=== PATIENT | female | born 1950 | race Caucasian/White ===

== ENCOUNTER 2019-03-04 10:26 | Inpatient (IN) | payer OTHER, MEDICARE ==
--- OUTSIDE RECORDS SUMMARY | 2019-03-04 10:42 | XMS REPORT ---
:1950 Author Organization eClinicalWorks Care Team Providers Name Role Phone Carin Washburn Provider Role Unavailable Allergies, Adverse Reactions, Alerts Substance Reaction Event Type [place] Info Not Available Drug Allergy Imitrex Info Not Available Drug Allergy Problems Problem Type Condition Code Onset Dates Condition Status Problem Imbalance R26.89 Active Problem Anemia, unspecified type D64.9 Active Problem Electrolyte imbalance E87.8 Active Problem Asthma J45.909 Active Problem Pancytopenia D61.818 Active Problem GERD without esophagitis K21.9 Active Problem Alcoholism F10.20 Active Problem Abnormal laboratory test result R89.9 Active Problem Recurrent UTI N39.0 Active Problem Loss of appetite R63.0 Active Problem Fatigue, unspecified type R53.83 Active Problem History of migraine Z86.69 Active Problem Alcoholic cirrhosis of liver K70.30 Active without ascites Problem Hepatomegaly R16.0 Active Problem Weight loss R63.4 Active Problem Renal mass N28.89 Active Problem Elevated liver enzymes R74.8 Active Problem Dizziness R42 Active Problem Abnormal erythrocyte indices R71.8 Active Assessment Recurrent UTI N39.0 Active Problem Fatty liver K76.0 Active Problem Leukopenia, unspecified type D72.819 Active Problem Vitamin D deficiency E55.9 Active Problem Elevated BP without diagnosis of R03.0 Active hypertension Medications Medication Code Code Instructions Start End Status Dosage System Date Date Vitamin D3 [facility] 43169099730 2000 UNIT Active 2 tablets Orally Once a day Dicyclomine HCl ND 03907740994 20 MG Orally Active 1 tablet Four times a day as needed Methenamine ND 09689233570 1 GM Orally Active 1 tablet Hippurate Twice a day Estrace ND 81735483005 0.1 MG/GM Sep 03, Active as Vaginal twice 2018 directed weekly Nitrofurantoin ND 45034478888 100 MG Orally Active 1 capsule Macrocrystal Twice a day x 7 with food days or milk Sucralfate ND 02003478746 1 GM Orally Active 1 tablet Twice a day at bedtime on an empty stomach before meals Travatan Z [facility] 41140249962 0.004 % Active 1 drop Ophthalmic Once into a day affected eye in the evening Cipro [facility] 09705081740 500 MG Orally Mar 11Mar Active 1 tablet every 12 hrs 2017 Pantoprazole [facility] 53421494693 20 MG Orally Active 1 tablet Sodium Once a day MagOx 400 [facility] 51954590153 400 (241.3 Mg) Active 1 tablet MG Orally Once with food a day Bactrim DS [facility] 20218187329 800-160 MG Active 1 tablet Orally Twice a day for 5 days Omeprazole [facility] 38936864061 40 MG Orally Active 1 capsule Once a day Results Name Result Date Reference Range Unit Abnormality Flag URINALYSIS AUTO W/O SCOPE (97079) ----NIT neg [id number] ----URO 0.2 [id number] ----PROTEIN neg [id number] ----pH 6.0 [id number] ----BLO tr [id number] ----GLUCOSE neg [id number] ----KHAI tr [id number] ----BILIRUBIN neg [id number] ----KETONES neg [id number] ----SPECIFIC GRAVITY 1.010 [id number] Summary Purpose eClinicalWorks Submission
--- OUTSIDE RECORDS SUMMARY | 2019-03-04 10:42 | XMS REPORT ---
:1950 Author Organization eClinicalWorks Care Team Providers Name Role Phone Carin Washburn Provider Role Unavailable Allergies, Adverse Reactions, Alerts Substance Reaction Event Type [place] Info Not Available Drug Allergy Imitrex Info [...] Status Dosage System Date Date Vitamin D3 [facility] 28245837222 2000 UNIT Active 2 tablets Orally Once a day Dicyclomine HCl ND 15335931286 20 MG Orally Active 1 tablet Four times a day as needed Sucralfate ND 32215649154 1 GM Orally Active 1 tablet Twice a day at bedtime on an empty stomach before meals Methenamine ND 10241644874 1 GM Orally Active 1 tablet Hippurate Twice a day Metronidazole ND 53284467877 500 MG Orally Active 1 tablet Three times a day Nitrofurantoin ND 69055165106 100 MG Orally Active 1 capsule Macrocrystal Twice a day x 7 with food days or milk MagOx 400 [facility] 62879200365 400 (241.3 Mg) Active 1 tablet MG Orally Once with food a day Pantoprazole [facility] 78706116700 40 MG Orally Active 1 tablet Sodium Once a day Travatan Z [facility] 37584286271 0.004 % Active 1 drop Ophthalmic Once into a day affected eye in the evening Omeprazole [facility] 56494796353 40 MG Orally Active 1 capsule Once a day Levofloxacin [facility] 90040179702 500 MG Orally Active 1 tablet Once a day Estrace [facility] 15727667270 0.1 MG/GM Sep 03, Active as Vaginal twice 2018 directed weekly Bactrim DS [facility] 35894528412 800-160 MG Active 1 tablet Orally Twice a day for 5 days Results Name Result Date Reference Range Unit Abnormality Flag URINALYSIS AUTO W/O SCOPE (98089) ----NIT neg [id number] ----URO 0.2 20180721 ----PROTEIN neg [id number] ----pH 7.0 20180721 ----BLO neg [id number] ----GLUCOSE neg [id number] ----KHAI tr [id number] ----BILIRUBIN neg [id number] ----KETONES neg [id number] ----SPECIFIC GRAVITY 1.010 [id number] Summary Purpose eClinicalWorks Submission
--- OUTSIDE RECORDS SUMMARY | 2019-03-04 10:43 | XMS REPORT ---
:1950 Author Organization eClinicalWorks Care Team Providers Name Role Phone Danyel Lacy Provider Role Unavailable Allergies No Known Allergies Problems Problem Type Condition Code Onset Dates Condition Status Problem Abnormal erythrocyte indices R71.8 Active Problem Leukopenia, unspecified type D72.819 Active Problem Elevated BP without diagnosis of R03.0 Active hypertension Problem Imbalance R26.89 Active Problem Electrolyte imbalance E87.8 Active Problem Weight loss R63.4 Active Problem Alcoholic cirrhosis of liver K70.30 Active without ascites Problem Abnormal laboratory test result R89.9 Active Problem History of migraine Z86.69 Active Problem Asthma J45.909 Active Problem GERD without esophagitis K21.9 Active Problem Abnormal thyroid ultrasound R93.89 Active Problem Subcutaneous mass of neck R22.1 Active Problem Renal mass N28.89 Active Problem Pancytopenia D61.818 Active Problem Abnormal thyroid function test R94.6 Active Problem Alcoholism F10.20 Active Problem Right wrist pain M25.531 Active Problem Recurrent UTI N39.0 Active Problem Depression screening Z13.31 Active Problem Dysphagia, unspecified type R13.10 Active Problem Vitamin D deficiency E55.9 Active Problem Dizziness R42 Active Problem Elevated liver enzymes R74.8 Active Problem Fatty liver K76.0 Active Problem Loss of appetite R63.0 Active Problem Hepatomegaly R16.0 Active Problem Anemia, unspecified type D64.9 Active Problem Fatigue, unspecified type R53.83 Active Medications No Known Medications Results No Known Results Summary Purpose eClinicalWorks Submission
--- OUTSIDE RECORDS SUMMARY | 2019-03-04 10:43 | XMS REPORT ---
:1950 Author Organization eClinicalWorks Care Team Providers Name Role Phone Carin Washburn Provider Role Unavailable Allergies, Adverse Reactions, Alerts Substance Reaction Event Type [place] Info Not Available Drug Allergy Imitrex Info Not Available Drug Allergy Problems Problem Type Condition Code Onset Dates Condition Status Assessment Recurrent UTI N39.0 Active Problem Anemia, unspecified type D64.9 Active Problem Elevated BP without diagnosis of R03.0 Active hypertension Problem Imbalance R26.89 Active Problem Abnormal laboratory test result R89.9 Active Problem Electrolyte imbalance E87.8 Active Problem Fatigue, unspecified type R53.83 Active Problem Alcoholic cirrhosis of liver K70.30 Active without ascites Problem Right wrist pain M25.531 Active Problem Recurrent UTI N39.0 Active Problem Renal mass N28.89 Active Problem Pancytopenia D61.818 Active Problem Dysphagia, unspecified type R13.10 Active Problem Alcoholism F10.20 Active Problem GERD without esophagitis K21.9 Active Problem Loss of appetite R63.0 Active Problem Asthma J45.909 Active Problem History of migraine Z86.69 Active Problem Weight loss R63.4 Active Problem Fatty liver K76.0 Active Problem Elevated liver enzymes R74.8 Active Problem Hepatomegaly R16.0 Active Problem Abnormal erythrocyte indices R71.8 Active Problem Leukopenia, unspecified type D72.819 Active Problem Vitamin D deficiency E55.9 Active Problem Dizziness R42 Active Medications Medication Code Code Instructions Start End Status Dosage System Date Date Estrace ND 42300090116 0.1 MG/GM Sep 03, Active as Vaginal twice 2018 directed weekly Methenamine ND 47890599825 1 GM Orally Active 1 tablet Hippurate Twice a day Metronidazole ND 50080979649 500 MG Orally Active 1 tablet Three times a day Dicyclomine HCl ND 21453449736 20 MG Orally Active 1 tablet Four times a day as needed Nitrofurantoin ND 63648864178 100 MG Orally Active 1 capsule Macrocrystal Twice a day x 7 with food days or milk Travatan Z [facility] 39612188004 0.004 % Active 1 drop Ophthalmic Once into a day affected eye in the evening Pantoprazole [facility] 04641490007 40 MG Orally Active 1 tablet Sodium Once a day Vitamin D3 [facility] 46803222747 2000 UNIT Active 2 tablets Orally Once a day Levofloxacin [facility] 44346902151 500 MG Orally Active 1 tablet Once a day MagOx 400 [facility] 13412621953 400 (241.3 Mg) Active 1 tablet MG Orally Once with food a day Omeprazole [facility] 51944154639 40 MG Orally Active 1 capsule Once a day Bactrim DS [facility] 60259642543 800-160 MG Active 1 tablet Orally Twice a day for 5 days Methenamine [facility] 12162430855 1 GM Orally Active 1 tablet Hippurate Twice a day Sucralfate [facility] 87768173098 1 GM Orally Active 1 tablet Twice a day at bedtime on an empty stomach before meals Results No Known Results Summary Purpose eClinicalWorks Submission
--- OUTSIDE RECORDS SUMMARY | 2019-03-04 10:43 | XMS REPORT ---
:1950 Author Organization eClinicalWorks Care Team Providers Name Role Phone Lacy Montaño Provider Role Unavailable Allergies, Adverse Reactions, Alerts Substance Reaction Event Type [place] Info Not Available Drug Allergy Imitrex Info Not Available Drug Allergy Problems Problem Type Condition Code Onset Dates Condition Status Assessment Dysphagia, unspecified type R13.10 Active Assessment Loss of appetite R63.0 Active Assessment Elevated BP without diagnosis of R03.0 Active hypertension Assessment Weight loss R63.4 Active Assessment Depression screening Z13.31 Active Assessment Subcutaneous mass of neck R22.1 Active Problem Anemia, unspecified type D64.9 Active Problem Abnormal laboratory test result R89.9 Active Problem Alcoholism F10.20 Active Problem Electrolyte imbalance E87.8 Active Problem Alcoholic cirrhosis of liver K70.30 Active without ascites Problem Pancytopenia D61.818 Active Problem Fatigue, unspecified type R53.83 Active Problem GERD without esophagitis K21.9 Active Problem Loss of appetite R63.0 Active Problem Subcutaneous mass of neck R22.1 Active Problem Right wrist pain M25.531 Active Problem Hepatomegaly R16.0 Active Problem Elevated liver enzymes R74.8 Active Problem Depression screening Z13.31 Active Problem Renal mass N28.89 Active Problem Asthma J45.909 Active Problem History of migraine Z86.69 Active Problem Dysphagia, unspecified type R13.10 Active Problem Recurrent UTI N39.0 Active Assessment Alcoholism F10.20 Active Problem Vitamin D deficiency E55.9 Active Assessment GERD without esophagitis K21.9 Active Problem Dizziness R42 Active Problem Weight loss R63.4 Active Assessment Right wrist pain M25.531 Active Problem Fatty liver K76.0 Active Problem Elevated BP without diagnosis of R03.0 Active hypertension Problem Imbalance R26.89 Active Problem Abnormal erythrocyte indices R71.8 Active Problem Leukopenia, unspecified type D72.819 Active Medications Medication Code Code Instructions Start End Status Dosage System Date Date Dicyclomine HCl [facility] 28375023071 20 MG Orally Active 1 tablet Four times a day as needed Levofloxacin ND 77958744638 500 MG Orally Active 1 tablet Once a day Nitrofurantoin [facility] 35101067529 100 MG Orally Active 1 capsule Macrocrystal Twice a day x 7 with food days or milk Sucralfate [facility] 07040674763 1 GM Orally Active 1 tablet Twice a day at bedtime on an empty stomach before meals Estrace ND 15320043199 0.1 MG/GM Sep 03, Active as Vaginal twice 2018 directed weekly Metronidazole ND 04789942852 500 MG Orally Active 1 tablet Three times a day MagOx 400 [facility] 59191749398 400 (241.3 Mg) Active 1 tablet MG Orally Once with food a day Bactrim DS [facility] 61214136274 800-160 MG Active 1 tablet Orally Twice a day for 5 days Pantoprazole [facility] 82602211689 40 MG Orally Active 1 tablet Sodium Once a day Omeprazole [facility] 76724249166 40 MG Orally Active 1 capsule Once a day Methenamine [facility] 57665503429 1 GM Orally Active 1 tablet Hippurate Twice a day Travatan Z [facility] 55843365626 0.004 % Active 1 drop Ophthalmic Once into a day affected eye in the evening Vitamin D3 [facility] 56148313097 2000 UNIT Active 2 tablets Orally Once a day Results No Known Results Summary Purpose eClinicalWorks Submission
--- OUTSIDE RECORDS SUMMARY | 2019-03-04 10:43 | XMS REPORT ---
:1950 Author Organization eClinicalWorks Care Team Providers Name Role Phone Lacy Montaño Provider Role Unavailable Allergies No Known Allergies Problems Problem Type Condition Code Onset Dates Condition Status Assessment Abnormal thyroid ultrasound R94.6 Active Problem Abnormal erythrocyte indices R71.8 Active [...] Medications Results No Known Results Summary Purpose [employer] Submission
--- OUTSIDE RECORDS SUMMARY | 2019-03-04 10:43 | XMS REPORT ---
:1950 Author Organization eClinicalWorks Care Team Providers Name Role Phone Lacy Montaño Provider Role Unavailable Allergies No Known Allergies Problems Problem Type Condition Code Onset Dates Condition Status Assessment Subcutaneous mass of neck R22.1 Active [...] R13.10 Active Problem Recurrent UTI N39.0 Active Problem Vitamin D deficiency E55.9 Active Problem Dizziness R42 Active Problem Weight loss R63.4 Active Problem Fatty liver K76.0 Active Problem Elevated BP without diagnosis of R03.0 Active hypertension Problem Imbalance R26.89 Active Problem Abnormal erythrocyte indices R71.8 Active Problem Leukopenia, unspecified type D72.819 Active Medications No Known Medications Results No Known Results Summary Purpose eClinicalWorks Submission
--- OUTSIDE RECORDS SUMMARY | 2019-03-04 10:43 | XMS REPORT ---
:1950 Author Organization eClinicalWorks Care Team Providers Name Role Phone Jose Raul Montañoen Provider Role Unavailable Allergies, Adverse Reactions, Alerts Substance Reaction Event Type [place] Info Not Available Drug Allergy Imitrex Info Not Available Drug Allergy Problems Problem Type Condition Code Onset Dates Condition Status Assessment Alcoholism F10.20 Active Assessment Loss of appetite R63.0 Active Assessment Elevated BP without diagnosis of R03.0 Active hypertension Problem Leukopenia, unspecified type D72.819 Active Assessment GERD without esophagitis K21.9 Active Problem Elevated BP without diagnosis of R03.0 Active hypertension Problem Imbalance R26.89 Active Problem Anemia, unspecified type D64.9 Active Problem Electrolyte imbalance E87.8 Active Problem Asthma J45.909 Active Problem GERD without esophagitis K21.9 Active Problem Pancytopenia D61.818 Active Problem Alcoholism F10.20 Active Problem Recurrent UTI N39.0 Active Problem Abnormal laboratory test result R89.9 Active Problem Loss of appetite R63.0 Active Problem Fatigue, unspecified type R53.83 Active Problem History of migraine Z86.69 Active Problem Alcoholic cirrhosis of liver K70.30 Active without ascites Problem Hepatomegaly R16.0 Active Problem Weight loss R63.4 Active Problem Renal mass N28.89 Active Problem Elevated liver enzymes R74.8 Active Problem Dizziness R42 Active Problem Abnormal erythrocyte indices R71.8 Active Problem Fatty liver K76.0 Active Problem Vitamin D deficiency E55.9 Active Medications Medication Code Code Instructions Start End Status Dosage System Date Date Metronidazole ND 98116133737 500 MG Orally Active 1 tablet Three times a day Levofloxacin ND 74495343122 500 MG Orally Active 1 tablet Once a day Bactrim DS [facility] 40057753248 800-160 MG Active 1 tablet Orally Twice a day for 5 days Omeprazole ND 20357006362 40 MG Orally Active 1 capsule Once a day Travatan Z [facility] 89776036897 0.004 % Active 1 drop Ophthalmic Once into a day affected eye in the evening Methenamine [facility] 37020702541 1 GM Orally Active 1 tablet Hippurate Twice a day Dicyclomine HCl [facility] 24802596759 20 MG Orally Active 1 tablet Four times a day as needed Nitrofurantoin [facility] 85678504057 100 MG Orally Active 1 capsule Macrocrystal Twice a day x 7 with food days or milk MagOx 400 [facility] 30912470039 400 (241.3 Mg) Active 1 tablet MG Orally Once with food a day Sucralfate [facility] 50827396818 1 GM Orally Active 1 tablet Twice a day at bedtime on an empty stomach before meals Pantoprazole [facility] 61741410677 40 MG Orally Active 1 tablet Sodium Once a day Estrace [facility] 74198249586 0.1 MG/GM Sep 03, Active as Vaginal twice 2018 directed weekly Vitamin D3 [facility] 41829277676 2000 UNIT Active 2 tablets Orally Once a day Results No Known Results Summary Purpose eClinicalWorks Submission
--- NOTE | 2019-03-04 11:13 | RAD REPORT ---
EXAM DESCRIPTION: RAD - Chest Single View - 03/04/2019 11:07 am CLINICAL HISTORY: weakness Chest pain. COMPARISON: Chest Single View dated 05/19/2018; Chest Single View dated 06/27/2017; Chest Single View dated 10/23/2015 FINDINGS: Portable technique limits examination quality. The lungs are grossly clear. The heart is normal in size. No displaced fractures. IMPRESSION: No acute intrathoracic process suspected.
[2019-03-04] MEDS ORDERED: NA CHLORIDE 0.9% 1,000 ML ONE ×2 (11:26→11:59)
[2019-03-04] MEDS ORDERED: ONDANSETRON 4 MG/2 ML VIAL ONE (11:26)
[2019-03-04 11:34] LABS: Absolute Lymphocytes (CBC) 0.3 K/uL (0.7-4.9); Basophils % 0.1 % (0-1.3); Hematocrit 44.5 % (36.0-45.0); Lymphocytes % 4.2 % (15.3-44.8); MPV 8.9 fL (7.6-11.3); RBC Red Blood Cell Count 4.04 M/uL (3.86-4.86)
[2019-03-04 11:51] LABS: Bilirubin Direct 1.4 mg/dL (0-0.2); Bilirubin Total 2.8 mg/dL (0.2-1.0); Potassium 4.4 mmol/L (3.5-5.1)
[2019-03-04 11:54] LABS: Magnesium 1.7 mg/dL (1.8-2.4); NT PRO-BNP 304 pg/mL (<125); Troponin (Emerg Dept Use Only) < 0.02 ng/mL (0.0-0.045)
[2019-03-04] MEDS ORDERED: THIAMINE 200 MG/2 ML INJ ONE (11:54)
[2019-03-04] MEDS ORDERED: NA CHLORIDE 0.9% 1,000 ML with FOLIC ACID 1 MG, THIAMINE HCL 100 MG, MULTIVITAMINS INJ ... IV SCH ×4 (12:00)
[2019-03-04 12:16] LABS: Urine Bacteria 20-50 /HPF (<20); Urine Culture Reflex Order REFLEXED; Urine RBC >50 /HPF (NONE SEEN)
--- NOTE | 2019-03-04 12:34 | RAD REPORT ---
EXAM DESCRIPTION: CT - Abdomen Pelvis Wo Contrast - 03/04/2019 12:20 pm CLINICAL HISTORY: Abdominal pain. no contrast;Abd pain COMPARISON: Abdomen W/Wo Contrast dated 04/22/2017 TECHNIQUE: CT imaging of the abdomen and pelvis was performed without contrast. Solid organ, bowel a nd vascular assessment is limited due to lack of IV and oral contrast. All CT scans are performed using dose optimization technique as appropriate and may include automated exposure control or mA/KV adjustment according to patient size. FINDINGS: The lower lung bundy are clear. Diffuse fatty infiltration is seen throughout the liver.The spleen, adrenal glands and kidneys show n o acute process. There is inflammatory changes about the pancreas particularly the tail the pancreas and body of the pancreas suggesting acute pancreatitis. Gallstones are present in the gallbladder. No bowel obstruction, free air, free fluid or abscess. The appendix is not identified as a discrete structure, however, no secondary findings of appendicitis are identified. The osseous structures are within normal limits. IMPRESSION: Mild to moderate acute pancreatitis is suspected without evidence complication. Suggest correlation with amylase and lipase levels. Cholelithiasis. Prominent fatty liver. A limited non-contrast examination was performed as detailed.
[2019-03-04 12:40] LABS: Urine Blood 1+ (NEG); Urine Glucose NEGATIVE (NEG); Urine Protein 2+ (NEG); Urine Specific Gravity 1.025 (1.005-1.030); Urine pH 5.5 (5.0-7.0)
--- NOTE | 2019-03-04 12:41 | ER ---
Nurse's Notes [facility] Name: Ciara Faith Age: 69 yrs Sex: Female : 1950 Arrival Date: 03/04/2019 Time: 10:31 Bed 13 Private MD: Diagnosis: Acute pancreatitis;Dehydration;Urinary tract infection, site not specified Presentation: 03/04 10:31 Presenting complaint: EMS states: Lower abdominal pain, N/V x 3 days. Reports hx of jl7 UTI. Transition of care: patient was not received from another setting of care. Onset of symptoms was February 28, 2019. Risk Assessment: Do you want to hurt yourself or someone else? Patient reports no desire to harm self or others. Initial Sepsis Screen: Does the patient meet any 2 criteria? No. Patient's initial sepsis screen is negative. Does the patient have a suspected source of infection? No. Patient's initial sepsis screen is negative. Care prior to arrival: None. 10:31 Method Of Arrival: EMS: [facility] jl7 10:31 Acuity: LINA 3 jl7 Historical: - Allergies: 10:38 [place]; jl7 - PMHx: 10:38 GERD; jl7 - Immunization history:: Adult Immunizations. - Social history:: Smoking status: unknown Patient uses alcohol, on a daily basis. - Ebola Screening: : No symptoms or risks identified at this time. Screenin:19 Abuse screen: Denies threats or abuse. Denies injuries from another. Nutritional jl7 screening: No deficits noted. Tuberculosis screening: No symptoms or risk factors identified. Fall Risk No fall in past 12 months (0 pts). No secondary diagnosis (0 pts). IV access (20 points). Ambulatory Aid- None/Bed Rest/Nurse Assist (0 pts). Gait- Weak (10 pts.). Mental Status- Oriented to own ability (0 pts). Total Gao Fall Scale indicates Low Risk Score (25-44 pts). Fall prevention measures have been instituted. Side Rails Up X 2 Placed close to Nursing Station Frequent Obs/Assesments occuring Family Present and informed to notify staff if they need to leave bedside As available Patient and Family Educated on Fall Prevention Program and strategies. Assessment: 10:30 General: Appears in no apparent distress. uncomfortable, ill, Behavior is calm, jl7 cooperative, appropriate for age. Pain: Complains of pain in suprapubic area Pain does not radiate. Pain currently is 7 out of 10 on a pain scale. Quality of pain is described as pressure, Pain began 2-3 days ago. Is continuous. Neuro: Level of Consciousness is awake, alert, obeys commands, Oriented to person, place, time, situation. Cardiovascular: Patient's skin is warm and dry. Respiratory: Airway is patent Respiratory effort is even, unlabored, Respiratory pattern is regular, symmetrical. GI: Reports nausea, vomiting, Patient currently denies constipation, diarrhea. : Reports pain in suprapubic area Denies burning with urination. EENT: No signs and/or symptoms were reported regarding the EENT system. Derm: Skin is pink, warm \T\ dry. Musculoskeletal: Reports weakness in all over. 11:30 Reassessment: Patient appears in no apparent distress at this time. No changes from jl7 previously documented assessment. Patient and/or family updated on plan of care and expected duration. Pain level reassessed. Patient is alert, oriented x 3, equal unlabored respirations, skin warm/dry/pink. 12:30 Reassessment: Patient appears in no apparent distress at this time. No changes from jl7 previously documented assessment. Patient and/or family updated on plan of care and expected duration. Pain level reassessed. Patient is alert, oriented x 3, equal unlabored respirations, skin warm/dry/pink. 13:30 Reassessment: Patient appears in no apparent distress at this time. Patient and/or 7 family updated on plan of care and expected duration. Pain level reassessed. Patient is alert, oriented x 3, equal unlabored respirations, skin warm/dry/pink. 14:30 Reassessment: Patient appears in no apparent distress at this time. No changes from jl7 previously documented assessment. Patient and/or family updated on plan of care and expected duration. Pain level reassessed. Patient is alert, oriented x 3, equal unlabored respirations, skin warm/dry/pink. Vital Signs: 10:39 BP 145 / 83; Pulse 108; Resp 19 S; Temp 98.7(O); Pulse Ox 100% on R/A; Pain 7/10; jl7 12:19 BP 146 / 85; Pulse 103; Resp 16 S; Pulse Ox 100% on R/A; jl7 ED Course: 10:30 Patient has correct armband on for positive identification. Placed in gown. Bed in low jl7 position. Call light in reach. Side rails up X 1. Pulse ox on. NIBP on. Warm blanket given. 10:31 Patient arrived in ED. jl7 10:34 Triage completed. jl7 10:36 Fouzia Shah FNP-C is [facility]. kb 10:36 Ra Sanabria MD is Attending Physician. kb 10:39 Arm band placed on right wrist. jl7 10:57 Irving Briones, ERICA is Primary Nurse. jl7 10:59 X-ray completed. Portable x-ray completed in exam room. Patient tolerated procedure sw well. 11:00 Initial lab(s) drawn, by me, sent to lab. Inserted saline lock: 22 gauge in left hand, jl7 using aseptic technique. 11:05 XRAY Chest (1 view) In Process Unspecified. EDMS 11:23 EKG done, by semiconductor development technician. reviewed by Fouzia MORALES. 3 11:34 Straight cath inserted, using sterile technique, Returned paxton urine. Patient dh3 tolerated well. 15Fr 200mL. 12:21 CT Abd/Pelvis - Without Contrast In Process Unspecified. EDMS 12:39 Ritesh Montaño MD is Hospitalizing Provider. kb 12:54 Milo Sands DO is Hospitalizing Provider. kb 13:20 Urine Culture Sent. jl7 14:30 No provider procedures requiring assistance completed. Patient admitted, IV remains in jl7 place. intact, No redness/swelling at site. Administered Medications: 11:47 Drug: NS 0.9% 1000 ml Route: IV; Rate: 1000 ml; Site: left hand; jl7 12:30 Follow up: IV Status: Completed infusion jl7 12:10 Drug: Thiamine 100 mg Route: IV; Rate: calculated rate; Site: left hand; jl7 12:11 Follow up: Response: No adverse reaction; IV Status: Completed infusion jl7 12:15 Drug: NS 0.9% 1000 ml Route: IV; Rate: 1000 ml; Site: left hand; jl7 15:17 Follow up: IV Status: Completed infusion jl7 12:34 Drug: Banana Bag - (NS 0.9% 1000 ml, foLIC Acid 1 mg, Thiamine 100 mg, Multivitamin 1 jl7 amp) Route: IV; Rate: calculated rate; Site: left hand; 15:18 Follow up: IV Status: Infusion continued upon admission jl7 13:17 Drug: Rocephin 1 grams Route: IV; Rate: calculated rate; Site: left hand; jl7 13:20 Follow up: Response: No adverse reaction; IV Status: Completed infusion jl7 Outcome: 12:40 Decision to Hospitalize by Provider. kb 15:23 Admitted to Tele accompanied by tech, via stretcher, room 205, with chart, Report jl7 called to Anjelica 15:23 Condition: stable 15:23 Discharge instructions given to patient, family, Instructed on the need for admit, Demonstrated understanding of instructions. 15:30 Patient left the ED. jl7 Signatures: Dispatcher [employer] EDFouzia Ramirez, PROFESSOR OF PATHOLOGY-C PROFESSOR OF PATHOLOGY-Ckb Teresita De La Torre Jahala, RN RN jl7 Daily Wolfe 3 Abi Bee 3 Corrections: (The following items were deleted from the chart) 12:15 11:47 NS 0.9% 1000 ml IV at 1000 ml in right hand jl7 jl7
--- NOTE | 2019-03-04 12:41 | EDPHYS ---
Physician Documentation [facility] Name: Ciara Faith Age: 69 yrs Sex: Female : 1950 Arrival Date: 03/04/2019 Time: 10:31 Bed 13 Private MD: ED Physician Ra Sanabria HPI: 03/04 13:36 This 69 yrs old Female presents to ER via EMS with complaints of Abdominal kb Pain. 13:36 The patient presents with abdominal pain. Onset: The symptoms/episode began/occurred 2 kb week(s) ago. The symptoms do not radiate. Associated signs and symptoms: Pertinent positives: nausea. The symptoms are described as constant. Modifying factors: The symptoms are alleviated by nothing, the symptoms are aggravated by nothing. Severity of pain: At its worst the pain was moderate in the emergency department the pain is unchanged. The patient has not experienced similar symptoms in the past. The patient has not recently seen a physician. Pt reports upper abd pain, nausea, decreased appetite, weakness and fatigue for 2-3 weeks. Historical: - Allergies: 10:38 [place]; jl7 - PMHx: 10:38 GERD; jl7 - Immunization history:: Adult Immunizations. - Social history:: Smoking status: unknown Patient uses alcohol, on a daily basis. - Ebola Screening: : No symptoms or risks identified at this time. ROS: 13:35 Constitutional: Negative for fever, chills, and weight loss, ENT: Negative for injury, kb pain, and discharge, Neck: Negative for injury, pain, and swelling, Cardiovascular: Negative for chest pain, palpitations, and edema, Respiratory: Negative for shortness of breath, cough, wheezing, and pleuritic chest pain, Back: Negative for injury and pain, MS/Extremity: Negative for injury and deformity, Skin: Negative for injury, rash, and discoloration. 13:35 Abdomen/GI: Positive for abdominal pain, nausea. 13:35 Neuro: Positive for weakness. Exam: 13:35 Constitutional: This is a well developed, well nourished patient who is awake, alert, kb and in no acute distress. Head/Face: Normocephalic, atraumatic. ENT: Nares patent. No nasal discharge, no septal abnormalities noted. Tympanic membranes are normal and external auditory canals are clear. Oropharynx with no redness, swelling, or masses, exudates, or evidence of obstruction, uvula midline. Mucous membranes moist. Neck: Trachea midline, no thyromegaly or masses palpated, and no cervical lymphadenopathy. Supple, full range of motion without nuchal rigidity, or vertebral point tenderness. No Meningismus. Chest/axilla: Normal chest wall appearance and motion. Nontender with no deformity. No lesions are appreciated. Cardiovascular: Regular rate and rhythm with a normal S1 and S2. No gallops, murmurs, or rubs. Normal PMI, no JVD. No pulse deficits. Respiratory: Lungs have equal breath sounds bilaterally, clear to auscultation and percussion. No rales, rhonchi or wheezes noted. No increased work of breathing, no retractions or nasal flaring. Back: No spinal tenderness. No costovertebral tenderness. Full range of motion. Skin: Warm, dry with normal turgor. Normal color with no rashes, no lesions, and no evidence of cellulitis. MS/ Extremity: Pulses equal, no cyanosis. Neurovascular intact. Full, normal range of motion. Neuro: Awake and alert, GCS 15, oriented to person, place, time, and situation. Cranial nerves II-XII grossly intact. Motor strength 5/5 in all extremities. Sensory grossly intact. Cerebellar exam normal. Normal gait. 13:35 Abdomen/GI: Inspection: abdomen appears normal, Bowel sounds: normal, Palpation: soft, in all quadrants, moderate abdominal tenderness, in the right upper quadrant and left upper quadrant. Vital Signs: 10:39 BP 145 / 83; Pulse 108; Resp 19 S; Temp 98.7(O); Pulse Ox 100% on R/A; Pain 7/10; jl7 12:19 BP 146 / 85; Pulse 103; Resp 16 S; Pulse Ox 100% on R/A; jl7 MDM: 10:37 Patient medically screened. kb 12:54 Data reviewed: vital signs, nurses notes. Data interpreted: Pulse oximetry: on room air kb is 100 %. Interpretation: normal. Counseling: I had a detailed discussion with the patient and/or guardian regarding: the historical points, exam findings, and any diagnostic results supporting the discharge/admit diagnosis, lab results, radiology results, the need for further work-up and treatment in the hospital. Physician consultation: Milo Prezas DO regarding admission, to the telemetry unit. patient's condition, in the emergency department to see patient at 12:54. 13:38 ED course: reports pt used to drink 4-6 vodka tonics per day, but when she kb started feeling bad she decreased it to one per day. 03/04 10:37 Order name: Urine Microscopic Only; Complete Time: 12:24 kb 03/04 10:37 Order name: Basic Metabolic Panel; Complete Time: 11:54 kb 03/04 10:37 Order name: CBC with Diff; Complete Time: 13:49 kb 03/04 10:37 Order name: Hepatic Function; Complete Time: 11:56 kb 03/04 10:37 Order name: Lipase; Complete Time: 11:56 kb 03/04 10:44 Order name: Magnesium; Complete Time: 11:56 kb 03/04 10:44 Order name: NT PRO-BNP; Complete Time: 11:56 kb 03/04 10:44 Order name: Troponin (emerg Dept Use Only); Complete Time: 11:56 kb 03/04 10:44 Order name: XRAY Chest (1 view); Complete Time: 11:16 kb 03/04 11:43 Order name: Urine Dipstick--Ancillary (enter results); Complete Time: 12:42 ar5 03/04 11:58 Order name: CT Abd/Pelvis - Without Contrast; Complete Time: 12:37 kb 03/04 12:20 Order name: Urine Culture EDMS 03/04 13:45 Order name: CBC Smear Scan; Complete Time: 13:49 EDMS 03/04 10:37 Order name: Urine Dipstick-Ancillary (obtain specimen); Complete Time: 11:39 kb 03/04 10:37 Order name: IV Saline Lock; Complete Time: 11:39 kb 03/04 10:37 Order name: Labs collected and sent; Complete Time: 11:39 kb 03/04 10:44 Order name: EKG; Complete Time: 10:46 kb 03/04 10:44 Order name: EKG - Nurse/Tech; Complete Time: 11:48 kb Administered Medications: 11:47 Drug: NS 0.9% 1000 ml Route: IV; Rate: 1000 ml; Site: left hand; 7 12:30 Follow up: IV Status: Completed infusion jl7 12:10 Drug: Thiamine 100 mg Route: IV; Rate: calculated rate; Site: left hand; jl7 12:11 Follow up: Response: No adverse reaction; IV Status: Completed infusion jl7 12:15 Drug: NS 0.9% 1000 ml Route: IV; Rate: 1000 ml; Site: left hand; jl7 15:17 Follow up: IV Status: Completed infusion jl7 12:34 Drug: Banana Bag - (NS 0.9% 1000 ml, foLIC Acid 1 mg, Thiamine 100 mg, Multivitamin 1 jl7 amp) Route: IV; Rate: calculated rate; Site: left hand; 15:18 Follow up: IV Status: Infusion continued upon admission jl7 13:17 Drug: Rocephin 1 grams Route: IV; Rate: calculated rate; Site: left hand; jl7 13:20 Follow up: Response: No adverse reaction; IV Status: Completed infusion jl7 Disposition: 15:34 Co-signature as Attending Physician, Ra Sanabria MD I agree with the assessment and cabrera plan of care. Disposition: 03/04/19 12:40 Hospitalization ordered by Milo Sands for Inpatient Admission. Preliminary diagnosis are Acute pancreatitis, Dehydration, Urinary tract infection, site not specified. - Bed requested for Telemetry/MedSurg (Inpatient). - Status is Inpatient Admission. jl7 - Condition is Stable. - Problem is new. - Symptoms are unchanged. UTI on Admission? Yes Signatures: Dispatcher [employer] EDFouzia Ramirez, DEHYDRATOR TENDER-C DEHYDRATOR TENDER-Ra Koo MD MD cha Martinez, [place] [id number] Irving Briones, RN RN jl7 Corrections: (The following items were deleted from the chart) 12:54 12:40 Hospitalization Ordered by Ritesh Montaño MD for Inpatient Admission. Preliminary kb diagnosis is Acute pancreatitis; Dehydration. Bed requested for Telemetry/MedSurg (Inpatient). Status is Inpatient Admission. Condition is Stable. Problem is new. Symptoms are unchanged. UTI on Admission? Yes. kb 14:33 12:54 03/04/2019 12:40 Hospitalization Ordered by Milo Sands DO for Inpatient em1 Admission. Preliminary diagnosis is Acute pancreatitis; Dehydration; Urinary tract infection, site not specified. Bed requested for Telemetry/MedSurg (Inpatient). Status is Inpatient Admission. Condition is Stable. Problem is new. Symptoms are unchanged. UTI on Admission? Yes. kb 15:30 14:33 03/04/2019 12:40 Hospitalization Ordered by Milo Sands DO for Inpatient jl7 Admission. Preliminary diagnosis is Acute pancreatitis; Dehydration; Urinary tract infection, site not specified. Bed requested for Telemetry/MedSurg (Inpatient). Status is Inpatient Admission. Condition is Stable. Problem is new. Symptoms are unchanged. UTI on Admission? Yes. em1
[2019-03-04] MEDS ORDERED: CEFTRIAXONE/SWI 1gm 1 GM/10 ML SYR ONE (13:14)
--- NOTE | 2019-03-04 13:32 | P.HP ---
Certification for Inpatient Patient admitted to: Inpatient With expected LOS: >2 Midnights Patient will require the following post-hospital care: None Practitioner: I am a practitioner with admitting privileges, knowledge of patient current condition, hospital course, and medical plan of care. Services: Services provided to patient in accordance with Admission requirements found in Title 42 Section 412.3 of the Code of Federal Regulations Patient History Date of Service: 03/04/19 Primary Care Provider: Dr. Montaño Reason for admission: Nausea, fatigue, abdominal pain History of Present Illness: 69-year-old female presented to the emergency room with nausea, fatigue and epigastric abdominal pain. Patient has history of GERD, pancreatitis, alcohol abuse and frequent UTI. Over the last several days patient has been feeling fatigued. She has reported increased nausea and epigastric abdominal pain. She rated the pain about a 7/ 10. Mainly to the epigastric region. She denies any fever, chills. She does report some mild shortness of breath, chest pain. Patient denies any diarrhea, constipation, melena or hematochezia. Decreased urine output noted. Increased nausea and vomiting today. Patient reports history of pancreatitis last year. She does use alcohol daily. She has been trying to cut down. at bedside. In the ER patient appeared dehydrated. Overall stable. Vital signs stable. Hemoglobin 14.9, white count 6.8. Platelet count of 90. Sodium 128, potassium 4.4, chloride 89, bicarb 8. BUN of 21 creatinine 1.65 with a GFR of 31. Glucose 135. Lipase elevated at 11,452. Troponin negative. Magnesium low at 1.7. Total bilirubin 2.1, AST 90, ALT 37. Chest x-ray unremarkable. Urinalysis showed some bacteria. CT scan revealed [id number] pancreatitis. Gallstones noted. Patient was given IV fluids in the emergency room. Patient admitted for further evaluation and treatment. When I saw the patient ER, she appeared stable. Patient does not appear septic. at bedside. reports patient recently evaluated for submandibular nodule. She is in the process of seeing a ENT. Recent ultrasound and CT scan unremarkable. also reports that last week she had a mild UTI. She took some left over Cipro for 2 days. Allergies hydrocodone [From [facility]] Allergy (Severe, Verified 05/19/18 16:44) Hives/Rash Home medications list reviewed: Yes Home Medications: Methenamine Hippurate 1 tab PO BID 05/19/18 Pantoprazole [Protonix Tab*] 40 mg PO DAILY 05/19/18 Travoprost [Travatan Z*] 1 gtt OP BEDTIME 05/19/18 Diphenox/Atropine [Lomotil*] 1 tab PO QID PRN #30 tab 05/29/18 Pantoprazole [Protonix Tab*] 40 mg PO ACB #30 tab 05/29/18 levoFLOXacin [Levaquin*] 500 mg PO DAILY #10 tab 05/29/18 metroNIDAZOLE [Flagyl*] 500 mg PO TID #30 tablet 05/29/18 - Past Medical/Surgical History Diabetic: No -: Fatty liver -: Alcohol abuse -: Former tobacco use -: GERD -: History of Recurrent UTI -: 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 She has 3 children. 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 She works as a tax filer. - Family History Mother -: Cancer - Social History Smoking Status: Former smoker Alcohol use: Yes CD- Drugs: No Caffeine use: No Place of Residence: Home Review of Systems General: Weakness, Malaise, As per HPI Eyes: Unremarkable ENT: Unremarkable Respiratory: Shortness of Breath, As per HPI Cardiovascular: Chest Pain, As per HPI Gastrointestinal: Nausea, Vomiting, Abdominal Pain, As per HPI Genitourinary: Dysuria, Frequency, As per HPI Musculoskeletal: Unremarkable Integumentary: Unremarkable Neurological: Weakness, As per HPI Lymphatics: Unremarkable Physical Examination - Physical Exam General: Alert, In no apparent distress, Oriented x3, Cooperative HEENT: Atraumatic, Normocephalic, PERRLA, Other (Dry Mucous membranes) Neck: Supple, No Thyromegaly, Other (Mild adenopathy to the right submandibular area) Respiratory: Clear to auscultation bilaterally, Normal air movement Cardiovascular: Normal pulses, Regular rate/rhythm Gastrointestinal: Normal bowel sounds, Soft and benign, Non-distended, No masses , No rebound, No guarding, Tenderness (Pain to the epigastric region with deep palpation) Musculoskeletal: No erythema, No tenderness, No warmth Integumentary: No tenderness/swelling, No erythema, No warmth, No cyanosis, Other (Dry skin) Neurological: Normal speech, Normal strength at 5/5 x4 extr, Normal tone, Normal affect - Studies Laboratory Data (last 24 hrs) 03/04/19 11:22: Magnesium 1.7 L 03/04/19 11:22: WBC 6.8, Hgb 14.8, Hct 44.5, Plt Count 90 L 03/04/19 11:22: Sodium 128 L, Potassium 4.4, BUN 20 H, Creatinine 1.65 H, Glucose 135 H, Total Bilirubin 2.8 H, AST 90 H, ALT 37, Alkaline Phosphatase 68 , Lipase 28915 H Assessment and Plan - Plan Impression: Nausea, fatigue, epigastric abdominal pain secondary to mild to moderate pancreatitis likely alcohol related with noted cholelithiasis Acute renal injury with hypo magnesium secondary to dehydration Hyponatremia likely related to volume depletion UTI with history of recurrent UTI Chronic Thrombocytopenia etiology unknown likely related to alcohol abuse Elevated liver function likely from alcohol abuse Alcohol abuse GERD Moderate malnutrition likely from alcohol Plan: Nausea, fatigue, epigastric abdominal pain secondary to mild to moderate pancreatitis likely alcohol related with noted cholelithiasis: Patient will be admitted for further evaluation and treatment. Will keep the patient NPO. Will continue with IV fluids and banana bag. Will continue monitor electrolytes and replace appropriately. Will consult GI for further evaluation and treatment. Will obtain abdominal ultrasound to evaluate liver and common bile duct. Check triglyceride level. Other lab includes pro calcitonin, blood cultures, urine culture and hepatitis panel. Will provide DVT prophylaxis-SCD. Care discussed with patient and . Anticipate discharge in the next 3- 5 days with clinical improvement. Will discuss further with GI. Acute renal injury with hypomagnesia secondary to dehydration: Continue with IV fluids. Will monitor and adjust electrolytes appropriately. Will consider nephrology evaluation if renal function remains abnormal. Hyponatremia likely related to volume depletion: Continue with IV fluids. UTI with history of recurrent UTI: Will start Rocephin. Urine and blood cultures obtained. Will check pro calcitonin. Chronic Thrombocytopenia etiology unknown likely related to alcohol abuse: Will check LDH, INR PT PTT, and peripheral smear. May be related to underlying liver disease/alcohol abuse. Previous lab shows thrombocytopenia in the past. Elevated liver function likely from alcohol abuse: Secondary to above. Will monitor closely. Continue with GI evaluation. Alcohol abuse: Encourage alcohol cessation. Patient willing to quit. Will provide medication for agitation. Will need to monitor for withdrawal. GERD: Will provide PPI. Moderate malnutrition likely from alcohol: Continue with plan above. Once able to take good oral intake will consult dietary to evaluate and make recommendations. Discharge Plan: Home Plan to discharge in: Greater than 2 days - Advance Directives Does patient have a Living Will: No Does patient have a Durable POA for Healthcare: No - Code Status/Comfort Care Code Status Assessed: Yes (Patient is full code) Time Spent Managing Pts Care (In Minutes): 55
[2019-03-04 13:44] LABS: Blood Morphology Comment NOTED (NOT SEEN); Macrocytosis 2+; Platelet Estimate DECR; Urine White Blood Cell Casts OK
--- NOTE | 2019-03-04 13:48 | EKG ---
Test Date: 2019-03-04 Test Time: 11:11:26 [employer] Leaf Printer: PETERSON MEASUREMENT RESULTS: Intervals: Rate: 104 ME: 122 QRSD: 82 QT: 334 QTc: 439 [place]: P: 55 ME: 122 QRS: 20 T: 104 INTERPRETIVE STATEMENTS: Sinus tachycardia Nonspecific ST and T wave abnormality Abnormal ECG Compared to ECG 05/19/2018 11:18:40 ST (T wave) deviation now present Accelerated junctional rhythm no longer present Prolonged QT interval no longer present Electronically Signed On 03-04-19 13:47:10 CDT by Prabhjot Delcid
[2019-03-04] MEDS ORDERED: ACETAMINOPHEN 500 MG TAB PO PRN (15:41)
[2019-03-04] MEDS ORDERED: ACETAMINOPHEN 650MG/RECT SUPP PR PRN (15:41)
[2019-03-04] MEDS ORDERED: SODIUM CHLORIDE 0.9% 10ML INJ IV PRN (15:41)
[2019-03-04] MEDS ORDERED: ONDANSETRON 4 MG/2 ML VIAL IV PRN (15:41)
[2019-03-04 16:20] VITALS: BMI 22.1
[2019-03-04 16:35] LABS: Protime INR 1.07
[2019-03-04] MEDS: D5 0.9 NS 1,000 ML IV SCH (17:18)
[2019-03-04] MEDS: MORPHINE 2 MG/ML SYR IV PRN (17:19)
[2019-03-04] MEDS ORDERED: MAGNESIUM SULFATE 1 gm IVPB 1 GM/100 ML BAG IV ONE (18:00)
--- NOTE | 2019-03-04 20:10 | RAD REPORT ---
EXAM DESCRIPTION: US - Abdomen Exam Complete - 03/04/2019 8:00 pm CLINICAL HISTORY: Abdominal pain. Evaluate pancreatitis. Evaluate common bile duct COMPARISON: Renal Ultrasound-Complete dated 04/15/2018Renal Ultrasound-Complete dated 04/15/2018; Abdo men Pelvis Wo Contrast dated 03/04/2019 FINDINGS: Mild fatty liver is suspected. No focal liver lesions or intrahepatic biliary dilatation i s seen. The gallbladder demonstrates small sandlike stones. Common bile duct is normal in caliber measuring 3 mm Both kidneys are normal in size, shape and echotexture. No hydronephrosis, focal lesion of concern or perinephric fluid. The spleen is normal in size. The pancreas and aorta are obscured by bowel gas. The visualized aspects of the IVC are grossly normal. IMPRESSION: Fatty liver. Small sandlike stones suspected in the gallbladder. The common bile duct is within normal limits.
[2019-03-04] MEDS ORDERED: PNEUMOCOCCAL VACCINE 0.5 ML IMVAC ONE (21:00)
[2019-03-05] MEDS: D5 0.9 NS 1,000 ML IV SCH ×4 (01:41→20:27)
[2019-03-05 05:41] LABS: Albumin 3.6 g/dL (3.4-5.0); Bilirubin Total 1.4 mg/dL (0.2-1.0); Potassium 3.4 mmol/L (3.5-5.1); Protein, Total 6.2 g/dL (6.4-8.2)
[2019-03-05 05:48] LABS: Absolute Lymphocytes (CBC) 0.2 K/uL (0.7-4.9); Basophils % 0.1 % (0-1.3); Hematocrit 37.8 % (36.0-45.0); Lymphocytes % 7.3 % (15.3-44.8); MPV 8.5 fL (7.6-11.3); RBC Red Blood Cell Count 3.58 M/uL (3.86-4.86)
[2019-03-05] MEDS: KCL 20 MEQ/100 mL IVPB 20 MEQ/100 ML BAG IV SCH ×4 (06:50→22:45)
[2019-03-05] MEDS: CEFTRIAXONE/SWI 1gm 1 GM/10 ML SYR IVP SCH (08:48)
[2019-03-05] MEDS: PANTOPRAZOLE 40 MG INJ IVP SCH (08:53)
[2019-03-05 09:28] LABS: Anisocytosis SLIGHT; Blood Morphology Comment NOTED (NOT SEEN); Macrocytosis 1+; Platelet Estimate DECR
[2019-03-05] MEDS: FOLIC ACID 1 MG, MULTIVITAMINS INJ 10 ML, THIAMINE HCL 100 MG in NA CHLORIDE 0.9% 1,000 ML IV SCH (10:58)
--- NOTE | 2019-03-05 12:34 | P.PN ---
Subjective Date of Service: 03/05/19 Primary Care Provider: Dr. Montaño Chief Complaint: Nausea, fatigue, abdominal pain Subjective: Improving Physical Examination - Vital Signs Temperature: 97.6 F Blood Pressure: 128/59 Pulse: 98 Respirations: 18 Pulse Ox (%): 95 - Physical Exam General: Alert, In no apparent distress, Oriented x3, Cooperative HEENT: Atraumatic Neck: Supple Respiratory: Clear to auscultation bilaterally, Normal air movement Cardiovascular: Normal pulses, Regular rate/rhythm Gastrointestinal: Normal bowel sounds, Soft and benign, Non-distended, No masses , No rebound, No guarding, Tenderness (Tenderness to the epigastric region improved) Musculoskeletal: No erythema, No tenderness, No warmth Integumentary: No tenderness/swelling, No erythema, No warmth, No cyanosis Neurological: Normal speech, Normal strength at 5/5 x4 extr, Normal tone, Normal affect - Studies Laboratory Data (last 24 hrs) 03/04/19 11:22: WBC 6.8, Hgb 14.8, Hct 44.5, Plt Count 90 L Medications List Reviewed: Yes Assessment & Plan Discharge Plan: Home Plan to discharge in: 72 Hours Physician Review Additional Text: Impression: Nausea, fatigue, epigastric abdominal pain secondary to mild to moderate pancreatitis likely alcohol related with noted cholelithiasis Acute renal injury with hypo magnesium secondary to dehydration Hyponatremia likely related to volume depletion UTI with history of recurrent UTI Chronic Thrombocytopenia etiology unknown likely related to alcohol abuse Elevated liver function likely from alcohol abuse Alcohol abuse GERD Moderate malnutrition likely from alcohol Plan: Nausea, fatigue, epigastric abdominal pain secondary to mild to moderate pancreatitis likely alcohol related with noted cholelithiasis: Epigastric pain improved. Lipase improved. Continue to follow electrolytes and lipase. Continue NPO at this time. Continue with IV fluids and banana bag. Patient on antibiotic therapy for UTI. DVT prophylaxis-SCDs in place due to thrombocytopenia. Await recommendations from GI. Abdominal ultrasound shows normal common bile duct. Care discussed with patient. Encourage ambulation. Provide incentive spirometer. Will consult physical therapy to ambulate. Once pain improved then can initiate clear liquid and then advanced slowly. Anticipate discharge in the next 3-5 days with clinical improvement. I will turn the service over to Dr. Steele tomorrow. I will go over the plan of care with her. Acute renal injury with hypomagnesia secondary to dehydration: Continue with IV fluids. Renal function improved. Continue to adjust appropriately. Hyponatremia likely related to volume depletion: Continue with IV fluids. UTI with history of recurrent UTI: Continue Rocephin. Urine and blood cultures obtained. Will monitor closely. Chronic Thrombocytopenia etiology unknown likely related to alcohol abuse: Lab reviewed. Patient with chronic thrombocytopenia. Decrease likely related to pancreatitis. Will consult Hematology for further recommendation. Elevated liver function likely from alcohol abuse: Secondary to above. Will monitor closely. Continue with GI evaluation. Alcohol abuse: Encourage alcohol cessation. Patient willing to quit. Will provide medication for agitation. Will need to monitor for withdrawal. GERD: Will provide PPI. Moderate malnutrition likely from alcohol: Continue with plan above. Once able to take good oral intake will consult dietary to evaluate and make recommendations. Time Spent Managing Pts Care (In Minutes): 55
[2019-03-05] MEDS ORDERED: MELATONIN 5 MG TABLET PO ONE (22:51)
[2019-03-06] MEDS: D5 0.9 NS 1,000 ML IV SCH ×2 (02:47→07:41)
[2019-03-06 05:55] LABS: Absolute Lymphocytes (CBC) 0.4 K/uL (0.7-4.9); Basophils % 0.2 % (0-1.3); Hematocrit 33.2 % (36.0-45.0); Lymphocytes % 13.8 % (15.3-44.8); RBC Red Blood Cell Count 3.18 M/uL (3.86-4.86)
[2019-03-06 06:22] LABS: Albumin 3.2 g/dL (3.4-5.0); Bilirubin Total 1.1 mg/dL (0.2-1.0); Magnesium 1.6 mg/dL (1.8-2.4); Potassium 3.1 mmol/L (3.5-5.1); Protein, Total 5.6 g/dL (6.4-8.2)
[2019-03-06] MEDS ORDERED: MAGNESIUM SULFATE 1 gm IVPB 1 GM/100 ML BAG IV ONE (06:27)
[2019-03-06] MEDS: KCL 20 MEQ/100 mL IVPB 20 MEQ/100 ML BAG IV SCH ×2 (06:37→09:33)
[2019-03-06] MEDS: FOLIC ACID 1 MG, MULTIVITAMINS INJ 10 ML, THIAMINE HCL 100 MG in NA CHLORIDE 0.9% 1,000 ML IV SCH (09:31)
[2019-03-06] MEDS: PANTOPRAZOLE 40 MG INJ IVP SCH (09:32)
[2019-03-06] MEDS: CEFTRIAXONE/SWI 1gm 1 GM/10 ML SYR IVP SCH (09:32)
--- NOTE | 2019-03-06 14:42 | P.PN ---
Subjective Date of Service: 03/06/19 Primary Care Provider: Dr. Montaño Chief Complaint: Nausea, fatigue, abdominal pain Patient seen and examined at bedside. at bedside. Chart reviewed and case discussed with nursing staff. Reports improved pain. Denies any nausea or vomiting. Denies any diarrhea this morning. Once very small bowel movement, mucousy in nature. Review of Systems 10-point ROS is otherwise unremarkable Physical Examination - Vital Signs Temperature: 97.5 F Blood Pressure: 136/64 Pulse: 98 Respirations: 16 Pulse Ox (%): 99 - Physical Exam General: Alert, In no apparent distress, Oriented x3 HEENT: Atraumatic, PERRLA, EOMI Neck: Supple, JVD not distended Respiratory: Clear to auscultation bilaterally, Normal air movement Cardiovascular: Regular rate/rhythm, Normal S1 S2 Gastrointestinal: Normal bowel sounds, No tenderness Musculoskeletal: No tenderness Integumentary: No rashes Neurological: Normal speech, Normal tone, Normal affect Lymphatics: No axilla or inguinal lymphadenopathy - Studies Microbiology Data (last 24 hrs): 03/04/19 11:34 Clean Catch Urine [place] Count - Final <10,000 CFU/ML. 03/04/19 11:34 Clean Catch Urine - Final MIXED [place]. Medications List Reviewed: Yes Assessment And Plan - Current Problems (Diagnosis) (1) Pancreatitis Current Visit: Yes Status: Acute Plan: Secondary to alcohol use. Cholelithiasis noted. Epigastric pain improved. -Lipase improved. Continue to follow electrolytes and lipase. -Start clear liquid diet. -Continue with IV fluids and banana bag. -Abdominal ultrasound shows normal common bile duct. -GI consulted, waiting recommendations. -encourage ambulation and incentive spirometry Qualifiers: Chronicity: acute Pancreatitis type: alcohol induced Acute pancreatitis complication: no infection or necrosis Qualified Code(s): K85.20 - Alcohol induced acute pancreatitis without necrosis or infection (2) Acute kidney injury Current Visit: Yes Status: Acute Plan: Likely secondary to dehydration. Resolved -Continue IV fluids. (3) Alcohol abuse Onset Date: 05/20/18 Current Visit: No Status: Chronic Plan: Encourage alcohol cessation. -Patient willing to quit. -Will provide medication for agitation as needed. -Will monitor for withdrawal. -will get physical therapy evaluation (4) Elevated liver function tests Onset Date: 05/20/18 Current Visit: No Status: Acute Plan: Likely secondary to alcohol abuse. Continue to monitor, pending GI evaluation. -She main benefit from outpatient GI followup after discharge (5) Hyponatremia Onset Date: 05/20/18 Current Visit: No Status: Resolved (6) GERD (gastroesophageal reflux disease) Onset Date: 05/20/18 Current Visit: No Status: Chronic Plan: Will continue PPI Qualifiers: Esophagitis presence: with esophagitis Qualified Code(s): K21.0 - Gastro- esophageal reflux disease with esophagitis (7) Pancytopenia Onset Date: 06/30/17 Current Visit: No Status: Chronic Plan: This could be secondary to alcohol abuse/pancreatitis -continue to monitor -Patient may benefit from outpatient follow up with hematology once discharged. -hold heparin/Lovenox at this time due to thrombocytopenia. (8) Urinary tract infection Current Visit: No Status: Resolved Plan: Continue Rocephin at this time. -urine cultures pending, will adjust antibiotics if needed. If cultures negative, will discontinue antibiotic tomorrow. Qualifiers: Urinary tract infection type: site unspecified Hematuria presence: without hematuria Qualified Code(s): N39.0 - Urinary tract infection, site not specified (9) Malnutrition Current Visit: Yes Status: Acute Plan: Likely secondary to alcohol. -will get nutrition consult once tolerating p.o. Qualifiers: Malnutrition type: protein-calorie malnutrition Protein-calorie malnutrition severity: moderate Qualified Code(s): E44.0 - Moderate protein- calorie malnutrition - Plan DVT prophylaxis: SCDs. Hold heparin/Lovenox due to thrombocytopenia GI prophylaxis: Protonix Diet: Clear liquid diet Disposition: Pending symptomatic improvement, GI evaluation/recommendation. Discharge Plan: Home Plan to discharge in: 72 Hours
[2019-03-06] MEDS ORDERED: MELATONIN 5 MG TABLET PO ONE (22:51)
[2019-03-07] MEDS: LORazepam 2 MG/ML VIAL IV PRN ×2 (01:50→12:22)
[2019-03-07] MEDS ORDERED: POTASSIUM 25 MEQ EFFERV TAB PO ONE (02:12)
[2019-03-07] MEDS: D5 0.9 NS 1,000 ML IV SCH ×2 (06:40→23:41)
[2019-03-07 07:10] LABS: Absolute Lymphocytes (CBC) 0.5 K/uL (0.7-4.9); Basophils % 0.2 % (0-1.3); Hematocrit 34.6 % (36.0-45.0); Lymphocytes % 12.6 % (15.3-44.8); MPV 9.3 fL (7.6-11.3); RBC Red Blood Cell Count 3.31 M/uL (3.86-4.86)
[2019-03-07 07:14] LABS: Albumin 3.5 g/dL (3.4-5.0); Bilirubin Total 1.2 mg/dL (0.2-1.0); Magnesium 1.7 mg/dL (1.8-2.4); Potassium 3.5 mmol/L (3.5-5.1); Protein, Total 6.2 g/dL (6.4-8.2)
[2019-03-07] MEDS: PANTOPRAZOLE 40 MG INJ IVP SCH (08:55)
[2019-03-07] MEDS: CEFTRIAXONE/SWI 1gm 1 GM/10 ML SYR IVP SCH (08:57)
[2019-03-07] MEDS ORDERED: MAGNESIUM SULFATE 1 gm IVPB 1 GM/100 ML BAG IV ONE (09:00)
--- NOTE | 2019-03-07 09:42 | P.PN ---
Subjective Date of Service: 03/07/19 Primary Care Provider: Dr. Montaño Chief Complaint: Nausea, fatigue, abdominal pain Subjective: Improving Patient seen and examined at bedside. at bedside. Chart reviewed and case discussed with nursing staff. Reports improved pain. Denies any nausea or vomiting. Tolerating clear liquid Denies any diarrhea this morning. One very small bowel movement in brief, mucousy in nature. Overnight, few episodes of confusion. Tried to get out of bed a lot. This am, states that it was because she had to urinate a lot. Review of Systems 10-point ROS is otherwise unremarkable Physical Examination - Vital Signs Temperature: 97.5 F Blood Pressure: 161/73 Pulse: 115 Respirations: 18 Pulse Ox (%): 99 - Physical Exam General: Alert, In no apparent distress, Oriented x3 HEENT: Atraumatic, PERRLA, EOMI Neck: Supple, JVD not distended Respiratory: Clear to auscultation bilaterally, Normal air movement Cardiovascular: Regular rate/rhythm, Normal S1 S2 Gastrointestinal: Normal bowel sounds, No tenderness Musculoskeletal: No tenderness Integumentary: No rashes Neurological: Normal speech, Normal tone, Normal affect Lymphatics: No axilla or inguinal lymphadenopathy - Studies Microbiology Data (last 24 hrs): 03/04/19 11:34 Clean Catch Urine [place] Count - Final <10,000 CFU/ML. 03/04/19 11:34 Clean Catch Urine - Final MIXED [place]. Medications List Reviewed: Yes Assessment And Plan - Current Problems (Diagnosis) (1) Pancreatitis Current Visit: Yes Status: Acute Plan: Secondary to alcohol use. Cholelithiasis noted. Epigastric pain improved. -Lipase continues to improve. Continue to follow electrolytes and lipase. -Continue clear liquid diet. -Continue with IV fluids and banana bag. -Abdominal ultrasound shows normal common bile duct. -GI consulted, awaiting recommendations. -encourage ambulation and incentive spirometry Qualifiers: Chronicity: acute Pancreatitis type: alcohol induced Acute pancreatitis complication: no infection or necrosis Qualified Code(s): K85.20 - Alcohol induced acute pancreatitis without necrosis or infection (2) Alcohol abuse Onset Date: 05/20/18 Current Visit: No Status: Chronic Plan: Encourage alcohol cessation. -Patient willing to quit. -Will provide medication for agitation as needed. PO librium started -Will monitor for withdrawal. -will get physical therapy evaluation (3) Elevated liver function tests Onset Date: 05/20/18 Current Visit: No Status: Acute Plan: Likely secondary to alcohol abuse. Continue to monitor, pending GI evaluation. -She main benefit from outpatient GI followup after discharge (4) Hyponatremia Onset Date: 05/20/18 Current Visit: No Status: Resolved (5) GERD (gastroesophageal reflux disease) Onset Date: 05/20/18 Current Visit: No Status: Chronic Plan: Will continue PPI Qualifiers: Esophagitis presence: with esophagitis Qualified Code(s): K21.0 - Gastro- esophageal reflux disease with esophagitis (6) Pancytopenia Onset Date: 06/30/17 Current Visit: No Status: Chronic Plan: This could be secondary to alcohol abuse/pancreatitis, stable -continue to monitor -Patient may benefit from outpatient follow up with hematology once discharged. -hold heparin/Lovenox at this time due to thrombocytopenia. (7) Urinary tract infection Current Visit: No Status: Resolved Plan: Urine cultures negative, will discontinue Rocephin. Qualifiers: Urinary tract infection type: site unspecified Hematuria presence: without hematuria Qualified Code(s): N39.0 - Urinary tract infection, site not specified (8) Malnutrition Current Visit: Yes Status: Acute Plan: Likely secondary to alcohol. -will get nutrition consult once tolerating p.o. Qualifiers: Malnutrition type: protein-calorie malnutrition Protein-calorie malnutrition severity: moderate Qualified Code(s): E44.0 - Moderate protein- calorie malnutrition (9) Acute kidney injury Current Visit: Yes Status: Resolved Plan: Likely secondary to dehydration. Resolved -Continue IV fluids. - Plan DVT prophylaxis: SCDs. Hold heparin/Lovenox due to thrombocytopenia GI prophylaxis: Protonix Diet: Clear liquid diet Disposition: Pending symptomatic improvement, GI evaluation/recommendation. Anticipate patient may require some PT after discharge. Will need re-eval for SNF vs w/ PT prior to discharge.
[2019-03-07] MEDS: FOLIC ACID 1 MG, MULTIVITAMINS INJ 10 ML, THIAMINE HCL 100 MG in NA CHLORIDE 0.9% 1,000 ML IV SCH (10:27)
[2019-03-07] MEDS: chlordiazePOXIDE HCl 25 MG CAP PO SCH ×2 (10:32→18:16)
--- NOTE | 2019-03-07 11:43 | P.PN ---
Subjective Date of Service: 03/07/19 Primary Care Provider: Dr. Montaño Chief Complaint: Nausea, fatigue, ROSA abdominal pain, EtOH pancreatitis Subjective: Improving (Decreasing lipase, from 11,452 to 1,206 today. She feels somewhat anxious and was started on BDZs. She did not tolerate CLs well today.) Review of Systems 10-point ROS is otherwise unremarkable General: Weakness (Improved. ) Gastrointestinal: Abdominal Pain (minimal at most ) Physical Examination - Vital Signs Temperature: 97.5 F Blood Pressure: 161/73 Pulse: 115 Respirations: 18 Pulse Ox (%): 99 - Physical Exam General: Alert, In no apparent distress, Oriented x3, Cooperative HEENT: Atraumatic, Normocephalic, PERRLA, EOMI Neck: Supple Respiratory: Normal air movement Cardiovascular: Normal pulses Gastrointestinal: Soft and benign, No ascites, No rebound, No guarding, Tenderness (minimal) Neurological: Normal speech, Normal strength at 5/5 x4 extr - Studies Microbiology Data (last 24 hrs): 03/04/19 11:34 Clean Catch Urine [place] Count - Final <10,000 CFU/ML. 03/04/19 11:34 Clean Catch Urine - Final MIXED [place]. Medications List Reviewed: Yes Assessment And Plan - Current Problems (Diagnosis) (1) Alcoholic pancreatitis Current Visit: Yes Status: Acute (2) Epigastric abdominal pain Current Visit: Yes Status: Acute (3) Malnutrition Current Visit: Yes Status: Acute Qualifiers: Malnutrition type: protein-calorie malnutrition Protein-calorie malnutrition severity: moderate Qualified Code(s): E44.0 - Moderate protein- calorie malnutrition (4) Elevated liver function tests Onset Date: 05/20/18 Current Visit: No Status: Acute (5) Hypokalemia Onset Date: 06/30/17 Current Visit: No Status: Acute (6) Hypomagnesemia Onset Date: 06/30/17 Current Visit: No Status: Acute (7) Hypotension Onset Date: 05/20/18 Current Visit: No Status: Acute (8) Alcohol abuse Onset Date: 05/20/18 Current Visit: No Status: Chronic (9) GERD (gastroesophageal reflux disease) Onset Date: 05/20/18 Current Visit: No Status: Chronic Qualifiers: Esophagitis presence: with esophagitis Qualified Code(s): K21.0 - Gastro- esophageal reflux disease with esophagitis (10) Hepatic cirrhosis Onset Date: 06/30/17 Current Visit: No Status: Chronic Qualifiers: Hepatic cirrhosis type: alcoholic cirrhosis Ascites presence: without ascites Qualified Code(s): K70.30 - Alcoholic cirrhosis of liver without ascites (11) Thrombocytopenia Current Visit: Yes Status: Acute - Plan REC: 1) increase IVFs 2) monitor labs 3) ice chips and sips of water, then retry CLs tomorrow Physician Review Additional Text: Impression: Nausea, fatigue, epigastric abdominal pain secondary to mild to moderate pancreatitis likely alcohol related with noted cholelithiasis Acute renal injury with hypo magnesium secondary to dehydration Hyponatremia likely related to volume depletion UTI with history of recurrent UTI Chronic Thrombocytopenia etiology unknown likely related to alcohol abuse Elevated liver function likely from alcohol abuse Alcohol abuse GERD Moderate malnutrition likely from alcohol Plan: Nausea, fatigue, epigastric abdominal pain secondary to mild to moderate pancreatitis likely alcohol related with noted cholelithiasis: Epigastric pain improved. Lipase improved. Continue to follow electrolytes and lipase. Continue NPO at this time. Continue with IV fluids and banana bag. Patient on antibiotic therapy for UTI. DVT prophylaxis-SCDs in place due to thrombocytopenia. Await recommendations from GI. Abdominal ultrasound shows normal common bile duct. Care discussed with patient. Encourage ambulation. Provide incentive spirometer. Will consult physical therapy to ambulate. Once pain improved then can initiate clear liquid and then advanced slowly. Anticipate discharge in the next 3-5 days with clinical improvement. I will turn the service over to Dr. Steele tomorrow. I will go over the plan of care with her. Acute renal injury with hypomagnesia secondary to dehydration: Continue with IV fluids. Renal function improved. Continue to adjust appropriately. Hyponatremia likely related to volume depletion: Continue with IV fluids. UTI with history of recurrent UTI: Continue Rocephin. Urine and blood cultures obtained. Will monitor closely. Chronic Thrombocytopenia etiology unknown likely related to alcohol abuse: Lab reviewed. Patient with chronic thrombocytopenia. Decrease likely related to pancreatitis. Will consult Hematology for further recommendation. Elevated liver function likely from alcohol abuse: Secondary to above. Will monitor closely. Continue with GI evaluation. Alcohol abuse: Encourage alcohol cessation. Patient willing to quit. Will provide medication for agitation. Will need to monitor for withdrawal. GERD: Will provide PPI. Moderate malnutrition likely from alcohol: Continue with plan above. Once able to take good oral intake will consult dietary to evaluate and make recommendations.
[2019-03-08] MEDS: chlordiazePOXIDE HCl 25 MG CAP PO SCH ×3 (00:07→11:06)
[2019-03-08] MEDS: D5 0.9 NS 1,000 ML IV SCH ×2 (02:03→09:22)
[2019-03-08] MEDS: MORPHINE 2 MG/ML SYR IV PRN (05:19)
[2019-03-08 07:18] LABS: Absolute Lymphocytes (CBC) 0.5 K/uL (0.7-4.9); Basophils % 0.5 % (0-1.3); Hematocrit 33.2 % (36.0-45.0); Lymphocytes % 19.3 % (15.3-44.8); MPV 7.7 fL (7.6-11.3); RBC Red Blood Cell Count 3.18 M/uL (3.86-4.86)
[2019-03-08 07:35] LABS: ALT/SGPT 51 U/L (12-78); AST/SGOT 138 U/L (15-37); Albumin 2.8 g/dL (3.4-5.0); Alkaline Phosphatase 68 U/L (45-117); BUN Blood Urea Nitrogen 3 mg/dL (7-18); Bicarbonate 22 mmol/L (21-32); Bilirubin Total 0.7 mg/dL (0.2-1.0); Glucose Level 115 mg/dL (74-106); Magnesium 1.6 mg/dL (1.8-2.4); Potassium 3.1 mmol/L (3.5-5.1); Protein, Total 5.3 g/dL (6.4-8.2); Sodium Level 138 mmol/L (136-145)
[2019-03-08 08:31] VITALS: O2SAT 96
[2019-03-08] MEDS ORDERED: POTASSIUM 25 MEQ EFFERV TAB PO ONE (09:15)
[2019-03-08] MEDS ORDERED: MAGNESIUM SULFATE 1 gm IVPB 1 GM/100 ML BAG IV ONE (09:15)
[2019-03-08] MEDS: FOLIC ACID 1 MG, MULTIVITAMINS INJ 10 ML, THIAMINE HCL 100 MG in NA CHLORIDE 0.9% 1,000 ML IV SCH (09:21)
[2019-03-08] MEDS: CEFTRIAXONE/SWI 1gm 1 GM/10 ML SYR IVP SCH (09:22)
[2019-03-08] MEDS: PANTOPRAZOLE 40 MG INJ IVP SCH (09:22)
[2019-03-08 09:29] LABS: Anisocytosis 1+; Blood Morphology Comment NOTED (NOT SEEN); Platelet Estimate DECR; Urine White Blood Cell Casts OK
[2019-03-08] MEDS ORDERED: POTASSIUM CL SA 10 MEQ TAB PO ONE (10:36)
[2019-03-08 12:03] VITALS: BP 130/67; TEMP 97.4
--- NOTE | 2019-03-08 17:21 | P.DS ---
Admission Date: 03/04/19 Discharge Date: 03/08/19 Primary Care Provider: Dr. Montaño Disposition: ROUTINE DISCHARGE Discharge Condition: GOOD Reason for Admission: Nausea, fatigue, ROSA abdominal pain, EtOH pancreatitis - Problems (1) Alcoholic pancreatitis Status: Acute (2) Malnutrition Status: Acute Qualifiers: Malnutrition type: protein-calorie malnutrition Protein-calorie malnutrition severity: moderate Qualified Code(s): E44.0 - Moderate protein- calorie malnutrition (3) Alcohol abuse Onset Date: 05/20/18 Status: Chronic (4) GERD (gastroesophageal reflux disease) Onset Date: 05/20/18 Status: Chronic Qualifiers: Esophagitis presence: with esophagitis Qualified Code(s): K21.0 - Gastro- esophageal reflux disease with esophagitis (5) Hepatic cirrhosis Onset Date: 06/30/17 Status: Chronic Qualifiers: Hepatic cirrhosis type: alcoholic cirrhosis Ascites presence: without ascites Qualified Code(s): K70.30 - Alcoholic cirrhosis of liver without ascites (6) Pancytopenia Onset Date: 06/30/17 Status: Chronic Brief History of Present Illness: 69-year-old female presented to the emergency room with nausea, fatigue and epigastric abdominal pain. Patient has history of GERD, pancreatitis, alcohol abuse and frequent UTI. Over the last several days patient has been feeling fatigued. She has reported increased nausea and epigastric abdominal pain. She rated the pain about a 7/ 10. Mainly to the epigastric region. She denies any fever, chills. She does report some mild shortness of breath, chest pain. Patient denies any diarrhea, constipation, melena or hematochezia. Decreased urine output noted. Increased nausea and vomiting today. Patient reports history of pancreatitis last year. She does use alcohol daily. She has been trying to cut down. at bedside. In the ER patient appeared dehydrated. Overall stable. Vital signs stable. Hemoglobin 14.9, white count 6.8. Platelet count of 90. Sodium 128, potassium 4.4, chloride 89, bicarb 8. BUN of 21 creatinine 1.65 with a GFR of 31. Glucose 135. Lipase elevated at 11,452. Troponin negative. Magnesium low at 1.7. Total bilirubin 2.1, AST 90, ALT 37. Chest x-ray unremarkable. Urinalysis showed some bacteria. CT scan revealed [id number] pancreatitis. Gallstones noted. Patient was given IV fluids in the emergency room. Patient admitted for further evaluation and treatment. When I saw the patient ER, she appeared stable. Patient does not appear septic. at bedside. reports patient recently evaluated for submandibular nodule. She is in the process of seeing a ENT. Recent ultrasound and CT scan unremarkable. also reports that last week she had a mild UTI. She took some left over Cipro for 2 days. Hospital Course: Overall during the hospital stay patient remained stable Patient was initially admitted to the hospital for nausea vomiting abdominal pain and was found to have acute pancreatitis most likely secondary to alcohol abuse. Patient was started on the NPO diet IV fluids and pain management while here in the hospital. Lipid panel and lab work were done. Lab work and lipid panel were within normal limits. Patient also had a CT scan done which was also within normal limits with no acute findings except pictures as. Patient had marked improvement in the symptoms while here in the hospital in next 24-48 hr. Patient also had blood cultures done here in the hospital which remained negative. Further patient also had a urine culture done here in the hospital however since patient's UA was pretty consistent with UTI and patient also had some times of UTI it was decided the patient will be treated for UTI upon discharge. Patient was given prescription for p.o. Augmentin. When patient was able to ambulate and tolerate her diet after a was advanced when she was feeling well patient was discharged home under stable condition. Patient was asked to follow up with primary care provider along with GI specialist. Patient was also educated extensively regarding alcohol abuse and was asked to be on a low-fat diet as well. Patient and at bedside blood sugar standing and thus were discharged home under stable condition Vital Signs/Physical Exam: Temp Pulse Resp BP Pulse Ox 97.4 F 51 18 130/67 98 03/08/19 12:00 03/08/19 12:00 03/08/19 12:00 03/08/19 12:03/08/19 12:00 General: Alert, In no apparent distress HEENT: Atraumatic, PERRLA, EOMI Neck: Supple, JVD not distended Respiratory: Clear to auscultation bilaterally, Normal air movement Cardiovascular: Regular rate/rhythm, Normal S1 S2 Gastrointestinal: Normal bowel sounds, No tenderness Musculoskeletal: No tenderness Integumentary: No rashes Neurological: Normal speech, Normal tone, Normal affect Lymphatics: No axilla or inguinal lymphadenopathy Laboratory Data at Discharge: WBC 2.8 K/uL (4.3-10.9) L D 03/08/19 06:16 Hgb 12.0 g/dL (12.0-15.0) 03/08/19 06:16 Hct 33.2 % (36.0-45.0) L 03/08/19 06:16 Plt Count 58 K/uL (152-406) L D 03/08/19 06:16 PT 12.6 SECONDS (9.5-12.5) H 03/04/19 16:09 INR 1.07 03/04/19 16:09 APTT 25.6 SECONDS (24.3-36.9) 03/04/19 16:09 Sodium 138 mmol/L (136-145) 03/08/19 06:16 Potassium 3.1 mmol/L (3.5-5.1) L 03/08/19 06:16 BUN 3 mg/dL (7-18) L 03/08/19 06:16 Creatinine 0.39 mg/dL (0.55-1.3) L 03/08/19 06:16 Glucose 115 mg/dL (74-106) H 03/08/19 06:16 Magnesium 1.6 mg/dL (1.8-2.4) L 03/08/19 06:16 Total Bilirubin 0.7 mg/dL (0.2-1.0) 03/08/19 06:16 AST 138 U/L (15-37) H 03/08/19 06:16 ALT 51 U/L (12-78) 03/08/19 06:16 Alkaline Phosphatase 68 U/L (45-117) 03/08/19 06:16 Triglycerides 115 mg/dL (<150) 03/04/19 16:09 Lipase 1206 U/L (73-393) H 03/07/19 06:16 Home Medications: Methenamine Hippurate 1 tab PO BID 05/19/18 Travoprost [Travatan Z*] 1 gtt EACH EYE BEDTIME 05/19/18 Pantoprazole [Protonix Tab*] 40 mg PO ACB #30 tab 05/29/18 Amoxicillin/Potassium Clav [Augmentin 500-125 Tablet] 1 each PO BID #14 tablet 03/08/19 New Medications: Amoxicillin/Potassium Clav [Augmentin 500-125 Tablet] 1 each PO BID #14 tablet Diet: Regular Activity: Ad colin Followup: Lacy Montaño MD [ACTIVE - CAN ADMIT] - 1 Week (Call to schedule an appointment) Fabio Mcintyre MD [ASSOCIATE-ACTIVE - CAN ADMIT] - 1-2 Weeks (GI- call to schedule an appointment)
[2019-03-09 02:45] LABS: HBsAG Nonreactive (Nonreactive)
== END 2019-03-08 14:40 | disposition home or self-care (01) | DRG 439 ==
LOC: ER 10:26 → ERHOLD 13:14 → 2ND 15:22
PROVIDERS: ADMIT Family Medicine; ATTEND Family Medicine
DX: K85.20 Alcohol induced acute pancreatitis without necrosis or infection (principal); E87.1 Hypo-osmolality and hyponatremia; D61.818 Other pancytopenia; E44.0 Moderate protein-calorie malnutrition; N17.9 Acute kidney failure, unspecified; N39.0 Urinary tract infection, site not specified; K80.20 Calculus of gallbladder without cholecystitis without obstruction; Z68.22 Body mass index [BMI] 22.0-22.9, adult; K21.0 Gastro-esophageal reflux disease with esophagitis; E87.6 Hypokalemia; E83.42 Hypomagnesemia; K70.30 Alcoholic cirrhosis of liver without ascites; F10.10 Alcohol abuse, uncomplicated; Z23 Encounter for immunization
CPT/HCPCS: 36415; 51702; 71045; 74176; 76700; 80048; 80053; 80074; 80076; 80320; 81003; 81015; 83010; 83615; 83690; 83735; 83880; 84132; 84145; 84478; 84484; 85025; 85610; 85730; 87040; 87086; 87088; 90471; 90670; 93005; 96361; 96365; 96366; 96375; 97110; 97116; 97161; 97530; 99285; C9113; J0696; J2270; J2405; J3411; J3475; J7030

== ENCOUNTER 2019-08-08 10:04 | Emergency (ER) | payer OTHER, MEDICARE ==
--- OUTSIDE RECORDS SUMMARY | 2019-08-08 10:06 | XMS REPORT ---
:1950 Author Organization e[employer] Care Team Providers Name Role Phone Lacy Montaño Provider Role Unavailable Allergies, Adverse Reactions, Alerts Substance Reaction Event Type [place] Info Not Available Drug Allergy Imitrex Info Not Available Drug Allergy Problems Problem Type Condition Code Onset Dates Condition Status Problem Alcoholic cirrhosis of liver K70.30 Active without ascites Problem Elevated liver enzymes R74.8 Active Problem Weight loss R63.4 Active Problem Hepatomegaly R16.0 Active Problem Fatty liver K76.0 Active Problem Vitamin D deficiency E55.9 Active Problem Dizziness R42 Active Problem Elevated BP without diagnosis of R03.0 Active hypertension Problem Imbalance R26.89 Active Problem Electrolyte imbalance E87.8 Active Problem Subcutaneous mass of neck R22.1 Active Problem Abnormal thyroid ultrasound R93.89 Active Problem Leukopenia, unspecified type D72.819 Active Problem Abnormal thyroid function test R94.6 Active Problem Pain in right axilla M79.621 Active Problem Alcohol-induced acute pancreatitis, K85.20 Active unspecified complication status Problem Pain of left leg M79.605 Active Problem Alcohol abuse F10.10 Active Problem Fatigue, unspecified type R53.83 Active Problem Anemia, unspecified type D64.9 Active Assessment Right wrist pain M25.531 Active Problem Hypomagnesemia E83.42 Active Problem Abnormal erythrocyte indices R71.8 Active Assessment Elevated BP without diagnosis of R03.0 Active hypertension Problem Pain in right leg M79.604 Active Assessment Weight loss R63.4 Active Problem Pain in left axilla M79.622 Active Assessment Alcoholism F10.20 Active Problem Gastroesophageal reflux disease K21.0 Active with esophagitis Problem 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 Problem Pancytopenia D61.818 Active Problem History of migraine Z86.69 Active Problem Renal mass N28.89 Active Problem Asthma J45.909 Active Problem Abnormal laboratory test result R89.9 Active Problem Loss of appetite R63.0 Active Problem Alcoholism F10.20 Active Problem GERD without esophagitis K21.9 Active Assessment Hypomagnesemia E83.42 Active Problem Right wrist pain M25.531 Active Problem Depression screening Z13.31 Active Problem Recurrent UTI N39.0 Active Problem Dysphagia, unspecified type R13.10 Active Medications Medication Code Code Instructions Start End Status Dosage System Date Date Methenamine [facility] 70957447820 1 GM Orally Active 1 tablet Hippurate Twice a day Gabapentin [facility] 39140365666 100 MG Orally Mar 17, Active 1 capsule Twice a day 2019 as needed for pain Dicyclomine HCl [facility] 45044862948 20 MG Orally Active 1 tablet Four times a day as needed Augmentin [facility] 05950098102 500-125 MG Active 1 tablet Orally every 12 hrs. x 7 days Sucralfate [facility] 05274113884 1 GM Orally Active 1 tablet Twice a day at bedtime on an empty stomach before meals Vitamin D3 [facility] 73957422389 2000 UNIT Active 2 tablets Orally Once a day MagOx 400 [facility] 38407114101 400 (241.3 Mg) Active 1 tablet MG Orally Once with food a day Travatan Z [facility] 95546576724 0.004 % Active 1 drop Ophthalmic Once into a day affected eye in the evening Estrace [facility] 14427944246 0.1 MG/GM Sep 03, Active as Vaginal twice 2018 directed weekly Metronidazole ND 00348411366 500 MG Orally Active 1 tablet Three times a day Levofloxacin [facility] 58829380159 500 MG Orally Active 1 tablet Once a day Magnesium Oxide [facility] 19384408121 400 MG Orally Apr 20, Jun 17, Active 1 tablet Once a day 2018 2018 Bactrim DS [facility] 23073844657 800-160 MG Active 1 tablet Orally Twice a day for 5 days Omeprazole [facility] 35382475497 40 MG Orally Active 1 capsule Once a day Nitrofurantoin [facility] 69653896647 100 MG Orally Active 1 capsule Macrocrystal Twice a day x 7 with food days or milk Pantoprazole [facility] 30123769512 40 MG Orally Active 1 tablet Sodium Once a day Results No Known Results Summary Purpose eClinicalWorks Submission
--- OUTSIDE RECORDS SUMMARY | 2019-08-08 10:06 | XMS REPORT ---
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 Problem Pancytopenia D61.818 Active Problem History of migraine Z86.69 Active Problem Renal mass N28.89 Active Problem Asthma J45.909 Active Problem Abnormal laboratory test result R89.9 Active Problem Loss of appetite R63.0 Active Problem Alcoholism F10.20 Active Problem GERD without esophagitis K21.9 Active Problem Right wrist pain M25.531 Active Problem Depression screening Z13.31 Active Problem Recurrent UTI N39.0 Active Problem Dysphagia, unspecified type R13.10 Active Medications Medication Code Code Instructions Start End Date Status Dosage System Date Magnesium NDC 68000667485 400 MG Orally Apr 20, Active 1 tablet Oxide Once a day 2019 as needed Results No Known Results Summary Purpose [employer]ClinicalWorks Submission
--- OUTSIDE RECORDS SUMMARY | 2019-08-08 10:07 | XMS REPORT ---
:1950 Author Organization [employer]Works Care Team Providers Name Role Phone Maddison Carin Provider Role Unavailable Allergies No Known Allergies [...] Problem Anemia, unspecified type D64.9 Active Assessment Pain in right leg M79.604 Active Problem Hypomagnesemia E83.42 Active Problem Abnormal [...] Problem GERD without esophagitis K21.9 Active Assessment Recurrent UTI N39.0 Active Problem Right wrist pain M25.531 Active Problem Depression screening Z13.31 Active Problem Recurrent UTI N39.0 Active Problem Dysphagia, unspecified type R13.10 Active Medications Medication Code Code Instructions Start End Status Dosage System Date Date Nitrofurantoin [facility] 47854001111 100 MG Orally Active 1 capsule Macrocrystal Twice a day x 7 with food days or milk Vitamin D3 [facility] 68504830081 2000 UNIT Active 2 tablets Orally Once a day Sucralfate [facility] 85955406243 1 GM Orally Active 1 tablet Twice a day at bedtime on an empty stomach before meals Gabapentin [facility] 97110268178 100 MG Orally Sept Inactive 1 capsule Twice a day , as needed 2018 for pain Metronidazole ND 22431191929 500 MG Orally Active 1 tablet Three times a day Travatan Z [facility] 24444613475 0.004 % Active 1 drop Ophthalmic Once into a day affected eye in the evening Pantoprazole [facility] 76619382770 40 MG Orally Active 1 tablet Sodium Once a day MagOx 400 [facility] 41157620439 400 (241.3 Mg) Active 1 tablet MG Orally Once with food a day Dicyclomine HCl [facility] 39659059558 20 MG Orally Active 1 tablet Four times a day as needed Omeprazole [facility] 28488593302 40 MG Orally Active 1 capsule Once a day Methenamine [facility] 37742993105 1 GM Orally Active 1 tablet Hippurate Twice a day Levofloxacin [facility] 31383809088 500 MG Orally Inactive 1 tablet Once a day Augmentin [facility] 69960177314 500-125 MG Active 1 tablet Orally every 12 hrs. x 7 days Methenamine [facility] 00701917286 1 GM Orally Active 1 tablet Hippurate Twice a day Estrace [facility] 10411338873 0.1 MG/GM Sep 03, Active as Vaginal twice 2018 directed weekly Bactrim DS [facility] 39468987113 800-160 MG Inactive 1 tablet Orally Twice a day for 5 days Results No Known Results Summary Purpose eClinicalWorks Submission
--- OUTSIDE RECORDS SUMMARY | 2019-08-08 10:07 | XMS REPORT ---
:1950 Author Organization [employer]Works Care Team Providers Name Role Phone Lacy Montaño Provider Role Unavailable Allergies, Adverse Reactions, Alerts Substance Reaction Event Type [place] Info Not Available Drug Allergy Imitrex Info [...] Problem Anemia, unspecified type D64.9 Active Assessment Encounter for screening mammogram Z12.31 Active for malignant neoplasm of breast Problem Hypomagnesemia E83.42 Active Problem Abnormal erythrocyte [...] Problem GERD without esophagitis K21.9 Active Assessment Medicare annual wellness visit, Z00.00 Active subsequent Problem Right wrist pain M25.531 Active Problem Depression screening Z13.31 Active Problem Recurrent UTI N39.0 Active Problem Dysphagia, unspecified type R13.10 Active Medications Medication Code Code Instructions Start End Status Dosage System Date Date Metronidazole [facility] 25809451213 500 MG Orally Active 1 tablet Three times a day Augmentin [facility] 59905106084 500-125 MG Active 1 tablet Orally every 12 hrs. x 7 days Nitrofurantoin ND 63013477212 100 MG Orally Active 1 capsule Macrocrystal Twice a day x 7 with food days or milk Bactrim DS [facility] 72579386559 800-160 MG Active 1 tablet Orally Twice a day for 5 days Estrace ND 32700118611 0.1 MG/GM Sep 03, Active as Vaginal twice 2017 directed weekly Magnesium Oxide ND 84982276906 400 MG Orally Apr 20, Jun 17, Active 1 tablet Once a day 2018 2018 Pantoprazole ND 78248070304 40 MG Orally Active 1 tablet Sodium Once a day Levofloxacin ND 22568255602 500 MG Orally Active 1 tablet Once a day Dicyclomine HCl ND 75964673657 20 MG Orally Active 1 tablet Four times a day as needed MagOx 400 [facility] 20579634775 400 (241.3 Mg) Active 1 tablet MG Orally Once with food a day Sucralfate ND 89661531823 1 GM Orally Active 1 tablet Twice a day at bedtime on an empty stomach before meals Omeprazole ND 75555360084 40 MG Orally Active 1 capsule Once a day Travatan Z [facility] 45238845601 0.004 % Active 1 drop Ophthalmic Once into a day affected eye in the evening Gabapentin ND 30489762291 100 MG Orally Mar 17, Active 1 capsule Twice a day 2018 as needed for pain Methenamine ND 41870514731 1 GM Orally Active 1 tablet Hippurate Twice a day Vitamin D3 ND 21041683727 2000 UNIT Active 2 tablets Orally Once a day Results No Known Results Summary Purpose eClinicalWorks Submission
--- NOTE | 2019-08-08 11:42 | RAD REPORT ---
EXAM DESCRIPTION: [place] Single View08/08/2019 11:33 am CLINICAL HISTORY: Chest pain COMPARISON: February 2019 FINDINGS: Calcified lung granulomas are present The lungs appear clear of acute infiltrate. The heart is normal size IMPRESSION: No acute abnormalities displayed
[2019-08-08] MEDS ORDERED: MORPHINE 2 MG/ML SYR ONE (12:14)
[2019-08-08] MEDS ORDERED: ONDANSETRON 4 MG/2 ML VIAL ONE (12:14)
[2019-08-08] MEDS ORDERED: KETOROLAC 30 MG/ML INJ ONE (12:14)
[2019-08-08] MEDS ORDERED: FAMOTIDINE 20 MG/2 ML VIAL IV ONE (12:15)
[2019-08-08 12:24] LABS: Basophils % 0.4 % (0-1.3); Hematocrit 36.5 % (36.0-45.0); Lymphocytes % 13.1 % (15.3-44.8); MPV 7.9 fL (7.6-11.3); RBC Red Blood Cell Count 4.32 M/uL (3.86-4.86)
[2019-08-08 12:28] LABS: Protime INR 1.24
[2019-08-08 12:38] LABS: ALT/SGPT 14 U/L (12-78); AST/SGOT 13 U/L (15-37); Albumin 3.5 g/dL (3.4-5.0); Alkaline Phosphatase 108 U/L (45-117); Amylase Level 34 U/L (25-115); BUN Blood Urea Nitrogen 12 mg/dL (7-18); Bicarbonate 25 mmol/L (21-32); Bilirubin Direct 0.4 mg/dL (0-0.2); Bilirubin Total 1.4 mg/dL (0.2-1.0); CKMB Creatine Kinase MB < 1.0 ng/mL (0.3-3.6); Creatine Phosphokinase 26 U/L (26-192); Glucose Level 106 mg/dL (74-106); Lipase 81 U/L (73-393); Potassium 3.9 mmol/L (3.5-5.1); Protein, Total 7.5 g/dL (6.4-8.2); Sodium Level 130 mmol/L (136-145); Troponin (Emerg Dept Use Only) < 0.02 ng/mL (0.0-0.045)
[2019-08-08 13:15] LABS: Urine Blood NEGATIVE (NEG); Urine Glucose NEGATIVE (NEG); Urine Protein NEGATIVE (NEG)
[2019-08-08 13:27] LABS: Urine Bacteria <20 /HPF (<20); Urine Culture Reflex Order NOT NEEDED; Urine Mucus HEAVY /HPF (NONE SEEN); Urine RBC <5 /HPF (NONE SEEN)
--- NOTE | 2019-08-08 13:41 | P.CNS ---
Date of Consult: 08/08/19 Reason for Consult: Pain all over Primary Care Provider: Dr. 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 The patient denies any nausea vomiting fever chills no outdoor activities. No trauma fall car accident. No venturing into the [place] or possible tick bites. Patient comes in today for worsening pain. In the ER her workup was negative except for CRP which was mildly elevated and total bilirubin. Chest x-ray was negative. 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 She has 3 children. 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 She works as a tax filer. - Family History Mother Medical History: Cancer Father Medical History: Lung disease Notes: emphysema - Social History Smoking Status: Unknown if ever smoked Alcohol use: Yes CD- Drugs: No Caffeine use: No Place of Residence: Home Review of Systems 10-point ROS is otherwise unremarkable Musculoskeletal: As per HPI Physical Examination General: Alert, In no apparent distress, Oriented x3, Other (Frail cachectic appears older than stated age) HEENT: Atraumatic, PERRLA, Mucous membr. moist/pink, EOMI, Sclerae nonicteric Neck: Supple, JVD not distended Respiratory: Clear to auscultation bilaterally, Normal air movement Cardiovascular: No edema, Normal pulses, Regular rate/rhythm, Normal S1 S2 Gastrointestinal: Normal bowel sounds, Soft and benign, Non-distended, No tenderness Musculoskeletal: No erythema, No warmth, Tenderness (Left knee. No erythema) Integumentary: No rashes Neurological: Normal gait, Normal speech, Normal strength at 5/5 x4 extr ( Generalized weakness of the left lower extremity), Normal tone, Normal affect Laboratory Data (last 24 hrs) 08/08/19 12:05: PT 14.5 H, INR 1.24, APTT 33.0 08/08/19 12:05: Sodium 130 L, Potassium 3.9, BUN 12, Creatinine 0.67, Glucose 106, Total Bilirubin 1.4 H, AST 13 L, ALT 14, Alkaline Phosphatase 108, Amylase 34, Lipase 81 08/08/19 12:05: WBC 7.9, Hgb 13.0, Hct 36.5, Plt Count 210 Imagings Data: Chest x-ray negative - Problems (1) Polyarthralgia Current Visit: Yes Status: Acute Conclusions/Impression: The patient may have a viral poly myositis versus polyarthralgias symptoms. Recommend NSAIDs and Tylenol. Follow up with PCP and neurology. The patient may have vitamin deficiency from a chronic drinking. Does have some fatty liver disease from her chronic alcohol use in the past. Patient does not require hospitalization. Case discussed with ER physician Dr. Major.
--- NOTE | 2019-08-08 13:43 | EDPHYS ---
Physician Documentation [facility] Name: Ciara Faith Age: 69 yrs Sex: Female : 1950 Arrival Date: 08/08/2019 Time: 10:06 Bed 27 Private MD: Layc Montaño ED Physician Brent Major HPI: 08/09 12:30 This 69 yrs old Female presents to ER via Ambulatory with complaints of Knee kdr Pain, Shoulder Pain, Neck Pain, >24Hrs Old. 12:30 The patient states that about a week ago, she began to have pain in her right hip and kdr flank area. Over the next few days, the pain moved up to her right shoulder and right neck and as of a few days ago, she began to have pain in her left foot and now fight foot. The pain does not seem to localize to a joint but rather is more regional. The pain does not appear to be related to movement but it is difficult to completely weight bear on her feet at this time, left greater than right.. Severity of symptoms: At their worst the symptoms were mild in the emergency department the symptoms are unchanged. The patient has not experienced similar symptoms in the past. The patient has been recently seen by a physician:. Historical: - Allergies: 08/08 10:38 [place]; aj1 - Home Meds: 10:38 METHANEM twice a day [Active]; pantoprazole 40 mg oral TbEC once daily [Active]; aj1 gabapentin 100 mg oral cap 1 caps as needed [Active]; - PMHx: 10:38 GERD; UTI; aj1 - Immunization history:: Flu vaccine is up to date. - Coronavirus screen:: The patient has NOT traveled to [place], [place], or [place] in the past 14 days. - Social history:: Smoking status: Patient/guardian denies using tobacco. - Ebola Screening: : Patient denies travel to an Ebola-affected area in the 21 days before illness onset. ROS: 08/09 12:30 Constitutional: Negative for fever, chills, and weight loss, Eyes: Negative for injury, kdr pain, redness, and discharge, ENT: Negative for injury, pain, and discharge, Neck: Negative for injury, pain, and swelling, Cardiovascular: Negative for chest pain, palpitations, and edema, Respiratory: Negative for shortness of breath, cough, wheezing, and pleuritic chest pain, Abdomen/GI: Negative for abdominal pain, nausea, vomiting, diarrhea, and constipation, : Negative for injury, bleeding, discharge, and swelling, Skin: Negative for injury, rash, and discoloration, Neuro: Negative for headache, weakness, numbness, tingling, and seizure activity. Psych: Negative for depression, anxiety, suicide ideation, homicidal ideation, and hallucinations, Allergy/Immunology: Negative for hives, rash, and allergies, Endocrine: Negative for neck swelling, polydipsia, polyuria, polyphagia, and marked weight changes, Hematologic/Lymphatic: Negative for swollen nodes, abnormal bleeding, and unusual bruising. Back: Positive for pain at rest, pain with movement, flank pain, of the right trapezius, right mid back and right low back. Exam: 08/08 19:28 ECG was reviewed by the Attending Physician. kdr 08/09 12:30 Constitutional: This is a well developed, well nourished patient who is awake, alert, kdr and in no acute distress. Head/Face: Normocephalic, atraumatic. Eyes: Pupils equal round and reactive to light, extra-ocular motions intact. Lids and lashes normal. Conjunctiva and sclera are non-icteric and not injected. Cornea within normal limits. Periorbital areas with no swelling, redness, or edema. Neck: Trachea midline, no thyromegaly or masses palpated, and no cervical lymphadenopathy. Supple, full range of motion without nuchal rigidity, or vertebral point tenderness. No Meningismus. Chest/axilla: Normal chest wall appearance and motion. Nontender with no deformity. No lesions are appreciated. Cardiovascular: Regular rate and rhythm with a normal S1 and S2. No gallops, murmurs, or rubs. Normal PMI, no JVD. No pulse deficits. Respiratory: Lungs have equal breath sounds bilaterally, clear to auscultation and percussion. No rales, rhonchi or wheezes noted. No increased work of breathing, no retractions or nasal flaring. Abdomen/GI: Soft, non-tender, with normal bowel sounds. No distension or tympany. No guarding or rebound. No evidence of tenderness throughout. Skin: Warm, dry with normal turgor. Normal color with no rashes, no lesions, and no evidence of cellulitis. MS/ Extremity: Pulses equal, no cyanosis. Neurovascular intact. Full, normal range of motion. Neuro: Awake and alert, GCS 15, oriented to person, place, time, and situation. Cranial nerves II-XII grossly intact. Motor strength 5/5 in all extremities. Sensory grossly intact. Cerebellar exam normal. Normal gait. Psych: Awake, alert, with orientation to person, place and time. Behavior, mood, and affect are within normal limits. Back: pain, that is mild, that is moderate, of the right trapezius, right mid back and right low back. Vital Signs: 08/08 10:38 BP 130 / 69; Pulse 89; Resp 18; Temp 98.4; Pulse Ox 99% on R/A; Weight 58.97 kg (R); aj1 Height 5 ft. 4 in. (162.56 cm) (R); Pain 10/10; 11:19 BP 123 / 52; Pulse 83; Resp 18; Pulse Ox 100% on R/A; aj1 12:44 BP 122 / 58; Pulse 81; Resp 18; Pulse Ox 100% on R/A; mg2 13:45 BP 123 / 60; Pulse 80; Resp 18; Temp 98; Pulse Ox 100% on R/A; mg2 10:38 Body Mass Index 22.31 (58.97 kg, 162.56 cm) 1 MDM: 13:27 Data reviewed: vital signs, nurses notes, lab test result(s), radiologic studies. kdr Counseling: I had a detailed discussion with the patient and/or guardian regarding: the historical points, exam findings, and any diagnostic results supporting the discharge/admit diagnosis, lab results, the need for outpatient follow up. Physician consultation: Ritesh Montaño MD regarding consult, patient's condition, need to come to ED to see patient, and will see patient in ED, shortly. 13:42 Patient medically screened. kdr 08/08 10:56 Order name: Sed Rate kdr 08/08 10:56 Order name: C-Reactive Protein kdr 08/08 10:56 Order name: Amylase, Serum kdr 08/08 10:56 Order name: Basic Metabolic Panel kdr 08/08 10:56 Order name: CBC with Diff; Complete Time: 12:57 kdr 08/08 10:56 Order name: Ckmb; Complete Time: 12:57 kdr 08/08 10:56 Order name: CPK; Complete Time: 12:57 kdr 08/08 10:56 Order name: Lactate; Complete Time: 12:57 kdr 08/08 10:56 Order name: LFT's; Complete Time: 12:57 kdr 08/08 10:56 Order name: Lipase; Complete Time: 12:57 kdr 08/08 10:56 Order name: Procalcitonin; Complete Time: 12:57 kdr 08/08 10:56 Order name: Protime (+inr); Complete Time: 12:57 kdr 08/08 10:56 Order name: Ptt, Activated; Complete Time: 12:57 kdr 08/08 10:56 Order name: Troponin (emerg Dept Use Only); Complete Time: 12:57 kdr 08/08 10:56 Order name: Urine Microscopic Only kdr 08/08 10:56 Order name: Chest Single View XRAY; Complete Time: 12:25 [facility] 08/08 10:56 Order name: Accucheck; Complete Time: 12:08 [facility] 08/08 10:56 Order name: Cardiac monitoring; Complete Time: 11:11 [facility] 08/08 10:56 Order name: EKG - Nurse/Tech; Complete Time: 11:11 [facility] 08/08 10:56 Order name: Flu; Complete Time: 12:57 [facility] 08/08 10:57 Order name: Sedimentation Rate, W[place]; Complete Time: 12:57 EDDE 08/08 10:57 Order name: C-Reactive Protein; Complete Time: 12:57 EDMS 08/08 10:57 Order name: Amylase Level; Complete Time: 12:57 EDDE 08/08 10:57 Order name: Basic Metabolic Panel; Complete Time: 12:57 EDDE 08/08 12:17 Order name: Glucose, Ancillary Testing; Complete Time: 12:25 EDDE 08/08 13:08 Order name: Urine Dipstick--Ancillary (enter results) ms 08/08 10:56 Order name: IV Saline Lock - Large Bore; Complete Time: 12:08 [facility] 08/08 10:56 Order name: Labs collected and sent; Complete Time: 12:08 [facility] 08/08 10:56 Order name: O2 Per Protocol; Complete Time: 11:11 [facility] 08/08 10:56 Order name: O2 Sat Monitoring; Complete Time: 11: [facility] 08/08 10:56 Order name: Urine Dipstick-Ancillary (obtain specimen); Complete Time: 13:21 kdr EC:28 Rate is 85 beats/min. Rhythm is regular, Normal Sinus Rhythm with No ectopy. QRS [place] kdr is Normal. HI interval is normal. Clinical impression: Normal ECG. Administered Medications: 12:19 Drug: TORadol - Ketorolac 15 mg Route: IVP; Site: left forearm; mg2 13:43 Follow up: Response: No adverse reaction mg2 12:20 Drug: Pepcid 20 mg Route: IVP; Site: left forearm; mg2 13:43 Follow up: Response: No adverse reaction mg2 12:20 Drug: morphine 2 mg Route: IVP; Site: left forearm; mg2 13:43 Follow up: Response: No adverse reaction; RASS: Alert and Calm (0) mg2 12:20 Drug: Zofran 4 mg Route: IVP; Site: left forearm; mg2 13:43 Follow up: Response: No adverse reaction mg2 Disposition: 08/08/19 13:42 Discharged to Home. Impression: Myalgia, Arthralgia. - Condition is Stable. - Discharge Instructions: Musculoskeletal Pain, Muscle Pain, Adult, Pain Without a Known Cause. - Prescriptions for Tramadol 50 mg Oral Tablet - take 1 tablet by ORAL route every 8 hours as needed; 12 tablet. - Medication Reconciliation Form, Thank You Letter, Prescription Opioid Use form. - Follow up: Lacy Montaño MD; When: 2 - 3 days; Reason: If symptoms return, Further diagnostic work-up, Recheck today's complaints, Continuance of care, Re-evaluation by your physician. - Problem is an ongoing problem. - Symptoms have worsened. Signatures: Dispatcher [employer] EDDE Roxie Vidales RN RN aj1 Brent Major MD MD kdr Tevin Worthington RN RN mg2 Corrections: (The following items were deleted from the chart) 13:59 13:42 08/08/2019 13:42 Discharged to Home. Impression: Myalgia; Arthralgia. Condition mg2 is Stable. Forms are Medication Reconciliation Form, Thank You Letter, Antibiotic Education, Prescription Opioid Use. Follow up: Lacy Montaño; When: 2 - 3 days; Reason: If symptoms return, Further diagnostic work-up, Recheck today's complaints, Continuance of care, Re-evaluation by your physician. Problem is an ongoing problem. Symptoms have worsened. kdr
--- NOTE | 2019-08-08 13:43 | ER ---
Nurse's Notes [facility] Name: Ciara Faith Age: 69 yrs Sex: Female : 1950 Arrival Date: 08/08/2019 Time: 10:06 Bed 27 Private MD: Lacy Montaño Diagnosis: Myalgia;Arthralgia Presentation: 08/08 10:36 Presenting complaint: Patient states: One week ago she started having back pain that aj1 moved up into her shoulders and neck. Now she is also having pain in her left knee and her right wrist. Denies falls, recent injury, or recent illness. Denies chills or fever at home. Transition of care: patient was not received from another setting of care. Onset of symptoms was July 2019. Risk Assessment: Do you want to hurt yourself or someone else? Patient reports no desire to harm self or others. Initial Sepsis Screen: Does the patient meet any 2 criteria? No. Patient's initial sepsis screen is negative. Does the patient have a suspected source of infection? No. Patient's initial sepsis screen is negative. Care prior to arrival: None. 10:36 Method Of Arrival: Ambulatory aj1 10:36 Acuity: LINA 3 aj1 Triage Assessment: 10:38 General: Appears in no apparent distress. uncomfortable, Behavior is calm, cooperative, aj1 appropriate for age. Pain: Pain currently is 10 out of 10 on a pain scale. Historical: - Allergies: 10:38 [place]; aj1 - Home Meds: 10:38 METHANEM twice a day [Active]; pantoprazole 40 mg oral TbEC once daily [Active]; aj1 gabapentin 100 mg oral cap 1 caps as needed [Active]; - PMHx: 10:38 GERD; UTI; aj1 - Immunization history:: Flu vaccine is up to date. - Coronavirus screen:: The patient has NOT traveled to [place], [place], or [place] in the past 14 days. - Social history:: Smoking status: Patient/guardian denies using tobacco. - Ebola Screening: : Patient denies travel to an Ebola-affected area in the 21 days before illness onset. Screenin:39 Abuse screen: Denies threats or abuse. Denies injuries from another. Nutritional aj1 screening: No deficits noted. Tuberculosis screening: No symptoms or risk factors identified. 12:44 Fall Risk IV access (20 points). mg2 Assessment: 10:39 General: Appears in no apparent distress. uncomfortable, Behavior is calm, cooperative, aj1 appropriate for age. Pain: Complains of pain in back, right wrist, left knee and neck Pain does not radiate. Pain currently is 10 out of 10 on a pain scale. Neuro: Level of Consciousness is awake, alert, obeys commands, Oriented to person, place, time, situation. Cardiovascular: Patient's skin is warm and dry. Respiratory: Airway is patent Respiratory effort is even, unlabored, Respiratory pattern is regular, symmetrical. GI: No signs and/or symptoms were reported involving the gastrointestinal system. : No signs and/or symptoms were reported regarding the genitourinary system. EENT: No signs and/or symptoms were reported regarding the EENT system. Derm: No signs and/or symptoms reported regarding the dermatologic system. Skin is pink, warm \T\ dry. normal. Musculoskeletal: Range of motion: limited in left shoulder, left knee, right shoulder and right wrist. 11:18 Reassessment: Patient appears in no apparent distress at this time. No changes from aj1 previously documented assessment. Patient and/or family updated on plan of care and expected duration. Pain level reassessed. Patient is alert, oriented x 3, equal unlabored respirations, skin warm/dry/pink. 11:26 Reassessment: X-Ray at bedside. aj1 12:43 Reassessment: Patient appears in no apparent distress at this time. Patient and/or mg2 family updated on plan of care and expected duration. Pain level reassessed. Patient is alert, oriented x 3, equal unlabored respirations, skin warm/dry/pink. 13:44 Reassessment: dr eid came and assessed the patient. mg2 13:59 Reassessment: Patient states feeling better. mg2 Vital Signs: 10:38 BP 130 / 69; Pulse 89; Resp 18; Temp 98.4; Pulse Ox 99% on R/A; Weight 58.97 kg (R); aj1 Height 5 ft. 4 in. (162.56 cm) (R); Pain 10/10; 11:19 BP 123 / 52; Pulse 83; Resp 18; Pulse Ox 100% on R/A; aj1 12:44 BP 122 / 58; Pulse 81; Resp 18; Pulse Ox 100% on R/A; mg2 13:45 BP 123 / 60; Pulse 80; Resp 18; Temp 98; Pulse Ox 100% on R/A; mg2 10:38 Body Mass Index 22.31 (58.97 kg, 162.56 cm) aj1 ED Course: 10:06 Patient arrived in ED. as 10:06 Lacy Montaño MD is Private Physician. as 10:17 Brent Major MD is Attending Physician. kdr 10:36 Roxie Vidales RN is Primary Nurse. aj1 10:37 Triage completed. aj1 10:38 Arm band placed on Patient placed in an exam room. aj1 10:39 Patient has correct armband on for positive identification. Bed in low position. Call aj1 light in reach. Side rails up X 1. 10:39 No provider procedures requiring assistance completed. aj1 11:10 EKG done, by ED staff, reviewed by Brent Major MD. jb1 11:33 Chest Single View XRAY In Process Unspecified. EDMS 12:05 Inserted saline lock: 22 gauge in left forearm, using aseptic technique. Blood mg2 collected. 13:41 Lacy Montaño MD is Referral Physician. kdr 13:59 IV discontinued, intact, bleeding controlled, No redness/swelling at site. Pressure mg2 dressing applied. Administered Medications: 12:19 Drug: TORadol - Ketorolac 15 mg Route: IVP; Site: left forearm; mg2 13:43 Follow up: Response: No adverse reaction mg2 12:20 Drug: Pepcid 20 mg Route: IVP; Site: left forearm; mg2 13:43 Follow up: Response: No adverse reaction mg2 12:20 Drug: morphine 2 mg Route: IVP; Site: left forearm; mg2 13:43 Follow up: Response: No adverse reaction; RASS: Alert and Calm (0) mg2 12:20 Drug: Zofran 4 mg Route: IVP; Site: left forearm; mg2 13:43 Follow up: Response: No adverse reaction mg2 Outcome: 13:42 Discharge ordered by . kdr 13:59 Discharged to home via wheelchair, with family. mg2 13:59 Condition: stable 13:59 Discharge instructions given to patient, family, Instructed on discharge instructions, follow up and referral plans. medication usage, Demonstrated understanding of instructions, follow-up care, medications, Prescriptions given X 1. 13:59 Patient left the ED. mg2 Signatures: Dispatcher [employer] EDMS Lanre Sinclair jb1 Roxie Vidales RN RN aj1 Brent Major MD MD kdr Martinez, Amelia as Gardose, Michele, RN RN mg2
[2019-08-08 14:08] VITALS: O2SAT 100
[2019-08-08 14:11] VITALS: BP 123/60; TEMP 98
--- NOTE | 2019-08-09 08:05 | EKG ---
Test Date: 2019-08-08 Test Time: 11:10:29 Machine [employer]k Screen Printer: SPARKLE MEASUREMENT RESULTS: Intervals: Rate: 85 DE: 150 QRSD: 82 QT: 394 QTc: 468 Clear: P: 27 DE: 150 QRS: -18 T: 49 INTERPRETIVE STATEMENTS: Normal sinus rhythm Normal ECG Compared to ECG 03/04/2019 11:11:26 Sinus tachycardia no longer present ST (T wave) deviation no longer present Electronically Signed On 08-09-19 08:04:17 [employer]DRE[employer]E OWNER by Modesto Lim
== END 2019-08-08 13:59 | disposition home or self-care (01) ==
LOC: ER 10:04
DX: M79.10 Myalgia, unspecified site (principal)
CPT/HCPCS: 93005; 85025; 80048; 36415; 82150; 82550; 85610; 82947; 80076; 83605; 85730; 85652; 84484; 82553; 83690; 84145; 86140; 87804 ×2; 71045; 96375; 96374; 99284; J2270; J2405; 81003; 81015

== ENCOUNTER 2020-03-10 06:56 | Emergency (ER) | payer OTHER, MEDICARE ==
--- OUTSIDE RECORDS SUMMARY | 2020-03-10 06:59 | XMS REPORT ---
:1950 Author Organization eClinicalWorks Care Team Providers Name Role Phone Maddison Carin Provider Role Unavailable Allergies No Known Allergies Problems Problem Type Condition Code Onset Dates Condition Statu s Problem Vitamin D deficiency E55.9 Active Problem Fatty liver K76.0 Active Problem Elevated BP without diagnosis of R03.0 Active hypertension Problem Dizziness R42 Active Problem Imbalance R26.89 Active Problem Electrolyte imbalance E87.8 Active Problem Abnormal erythrocyte indices R71.8 Active Problem Leukopenia, unspecified type D72.819 Active Problem Anemia, unspecified type D64.9 Act abdirahman Problem Fatigue, unspecified type R53.83 Ac tive Problem Pain in right leg M79.604 Active Problem Pain in right axilla M79.621 Active Problem Loss of appetite R63.0 Active Problem Alcohol-induced acute pancreatitis, K85.20 Active unspecified complication status Problem Gastroesophageal reflux disease K21.0 Active with esophagitis Problem 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 Problem Bilateral low back pain without M54.5 Active sciatica, unspecified chronicity Problem Gastritis, presence of bleeding K29.70 Active unspecified, unspecified chronicity, unspecified gastritis type Problem Asthma J45.909 Active Problem History of migraine Z86.69 Active Problem Alcoholism F10.20 Active Problem Hiatal hernia K44.9 Active Problem GERD without esophagitis K21.9 Act abdirahman Problem Abnormal laboratory test result R89.9 Active Problem Pain of left leg M79.605 Active Problem Alcohol abuse F10.10 Active Problem Gastritis with hemorrhage, K29.71 A ctive unspecified chronicity, unspecified gastritis type Problem Hypomagnesemia E83.42 Active Problem Hepatomegaly R16.0 Active Problem Right wrist pain M25.531 Active Problem Weight loss R63.4 Active Problem Depression screening Z13.31 Active Problem Elevated liver enzymes R74.8 Activ e Problem Recurrent UTI N39.0 Active Problem Alcoholic cirrhosis of liver K70.30 Active without ascites Problem Dysphagia, unspecified type R13.10 Active Problem Pancytopenia D61.818 Active Problem Abnormal thyroid ultrasound R93.89 Active Problem Renal mass N28.89 Active Problem Pain in left axilla M79.622 Active Problem Subcutaneous mass of neck R22.1 Ac tive Problem Abnormal thyroid function test R94.6 Active Medications Medication Code Code Instructions Start End Date Status Dosage System Date Cefdinir [facility] 30111337604 300 MG Orally Feb 27, Mar 04, Active as di rected BID 2019 2019 Results No Known Results Summary Purpose eClinicalWorks Submission
--- OUTSIDE RECORDS SUMMARY | 2020-03-10 06:59 | XMS REPORT ---
:1950 Author Organization eClinicalWorks Care Team Providers Name Role Phone MaddisonCarin flood Provider Role Unavailable Allergies, Adverse Reactions, Alerts Substance Reaction Event Type [place] Info Not Available Drug Allergy Imitrex Info [...] M79.605 Active Problem Alcohol abuse F10.10 Active Assessment Recurrent UTI N39.0 Active Problem Gastritis with hemorrhage, K29.71 A [...] Start End Status Dosage System Date Date Sucralfate ND 53239422455 1 GM Orally Active 1 tab let Twice a day at bedtime on an empty stomach before meals Nitrofurantoin ND 53488605506 100 MG Orally Active 1 capsule Macrocrystal Twice a day x 7 wit h food days or milk Methenamine ND 85012215498 1 GM Orally Active 1 ta blet Hippurate Twice a day Augmentin ND 80272692454 500-125 MG Active 1 table t Orally every 12 hrs. x 7 days Metronidazole ND 74200768310 500 MG Orally Active 1 tablet Three times a day Vitamin D3 ND 23872684410 2000 UNIT Active 2 table ts Orally Once a day Omeprazole ND 90920061657 40 MG Orally Active 1 ca psule Once a day MagOx 400 ND 27690973774 400 (241.3 Mg) Active 1 t ablet MG Orally Once with food a day Pantoprazole ND 63587681277 40 MG Orally Active 1 tablet Sodium Once a day Estrace ND 22708353541 0.1 MG/GM Sep 03, Active as Vaginal twice 2018 directed weekly Travatan Z [facility] 96855050770 0.004 % Active 1 drop Ophthalmic Once into a day affected eye in the evening Gabapentin ND 89437258589 100 MG Orally Active 1 c apsule twice a day Methenamine ND 77195582617 1 GM Orally Active 1 ta blet Hippurate Twice a day Dicyclomine HCl ND 11900924973 20 MG Orally Active 1 tablet Four times a day as needed Cefdinir ND 26149000783 300 MG Orally December 12December Active as BID 2019 12, directed 2019 Results No Known Results Summary Purpose eClinicalWorks Submission
--- OUTSIDE RECORDS SUMMARY | 2020-03-10 06:59 | XMS REPORT ---
[...] Abnormal thyroid function test R94.6 Active Medications No Known Medications Results No Known Results Summary Purpose eClinicalWorks Submission
--- OUTSIDE RECORDS SUMMARY | 2020-03-10 06:59 | XMS REPORT ---
:1950 Author Organization eClinicalWorks Care Team Providers Name Role Phone Carin Washburn Provider Role Unavailable Allergies, Adverse Reactions, Alerts Substance Reaction Event Type [place] Info Not Available Drug Allergy Imitrex Info [...] Active Problem Alcohol abuse F10.10 Active Assessment UTI (lower urinary tract infection) N39.0 Active Problem Gastritis with hemorrhage, K29.71 [...] End Status Dosage System Date Date Methenamine [facility] 37853875675 1 GM Orally Active 1 ta blet Hippurate Twice a day Augmentin ND 72580201628 500-125 MG Active 1 table t Orally every 12 hrs. x 7 days MagOx 400 [facility] 01361742805 400 (241.3 Mg) Active 1 t ablet MG Orally Once with food a day Vitamin D3 ND 80969179981 2000 UNIT Active 2 table ts Orally Once a day Travatan Z [facility] 74379821761 0.004 % Active 1 drop Ophthalmic Once into a day affected eye in the evening Gabapentin [facility] 51796306564 100 MG Orally Active 1 c apsule twice a day Pantoprazole ND 79658291473 40 MG Orally Active 1 tablet Sodium Once a day Nitrofurantoin ND 10717056018 100 MG Orally Active 1 capsule Macrocrystal Twice a day x 7 wit h food days or milk Metronidazole ND 04129917199 500 MG Orally Active 1 tablet Three times a day Dicyclomine HCl ND 72142353188 20 MG Orally Active 1 tablet Four times a day as needed Sucralfate ND 72456641806 1 GM Orally Active 1 tab let Twice a day at bedtime on an empty stomach before meals Omeprazole ND 30290639636 40 MG Orally Active 1 ca psule Once a day Estrace ND 13257967078 0.1 MG/GM Sep 03, Active as Vaginal twice 2018 directed weekly Methenamine ND 41112452841 1 GM Orally Active 1 ta blet Hippurate Twice a day Results No Known Results Summary Purpose eClinicalWorks Submission
--- OUTSIDE RECORDS SUMMARY | 2020-03-10 06:59 | XMS REPORT ---
:1950 Author Organization eClinicalWorks Care Team Providers Name Role Phone Monette Carin Provider Role Unavailable Allergies No Known [...]
--- OUTSIDE RECORDS SUMMARY | 2020-03-10 06:59 | XMS REPORT | Continuity of Care Document ---
:1950 Author Organization [facility] t Address [facility] [place] [address] Care Team Providers Name Role Phone Unavailable Unavailable Unavailable Problems Condition Condition Condition Status Onset Resolution Last Treating Co mments Source Name Details Category Date Date Treatment Clinician Date Recurrent Recurrent Problem Active [facility] Imbalance Imbalance Problem [facility] Dizziness Dizziness Problem [facility] Loss of Loss of Problem Active [facility] appetite appetite [facility] Weight Weight Problem Active [facility] loss loss [facility] Abnormal Abnormal Problem Active [facility] erythrocyt erythrocyt Yareli kes - e indices e indices Eliazar gennaro l [facility]ics Elevated Elevated Problem Active [facility] BP without BP without Yareli kes - diagnosis diagnosis Eliazar gennaro of of l hypertensi hypertensi Ou tpati on on ent Clinics Leukopenia Leukopenia Problem Active [facility] , , [facility] - unspecifie unspecifie Me moria d type d type l [facility] Alcoholism Alcoholism Problem Active [facility] Electrolyt Electrolyt Problem Active [facility] e e [facility] - imbalance imbalance Eliazar gennaro l [facility] GERD GERD Problem Active [facility] without without [facility] - esophagiti esophagiti Me moria s s l [facility] History of History of Problem Active [facility] migraine migraine [facility] Asthma Asthma Problem Active [facility] Abnormal Abnormal Problem Active [facility] laboratory laboratory Yareli kes - test test Memoria result result l [facility] Fatigue, Fatigue, Problem Active [facility] unspecifie unspecifie Yareli kes - d type d type Memoria l [facility] Anemia, Anemia, Problem Active [facility] unspecifie unspecifie Yareli kes - d type d type [facility] 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 Luke s - of liver of liver Memori a without without l ascites ascites [facility] Elevated Elevated Problem Active [facility] liver liver [facility] - enzymes enzymes [facility] l [facility] Hepatomega Hepatomega Problem Active [facility] ly ly [facility] Pancytopen Pancytopen Problem Active [facility] Renal mass Renal mass Problem Active [facility] Vitamin D Vitamin D Problem Active [facility] deficiency deficiency Yareli kes - [facility]ics Fatty Fatty Problem Active [facility] liver liver [facility] Right Right Problem Active [facility] wrist pain wrist pain Yareli kes - Memoria l [facility] Dysphagia, Dysphagia, Problem Active [facility] unspecifie unspecifie [facility] Depression Depression Problem Active [facility] screening screening Luke [facility] - [facility]ics Subcutaneo Subcutaneo Problem Active [facility] us mass of us mass of Yareli kes - neck neck [facility] l [facility] Abnormal Abnormal Problem Active [facility] thyroid thyroid [facility] - function function Memori a test test l [facility] Abnormal Abnormal Problem Active [facility] thyroid thyroid [facility] - ultrasound ultrasound Me moria l [facility] Pain in Pain in Problem Active [facility] left left [facility] - axilla axilla [facility] Pain in Pain in Problem Active [facility] right leg right leg Luke [facility] - [facility] Pain of Pain of Problem Active [facility] left leg left leg [facility] Pain in Pain in Problem Active [facility] right right [facility] - axilla axilla [facility] l [facility] Alcohol-in 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 [facility] duced duced [facility] - acute acute Memoria pancreatit pancreatit l is, is, Outpati unspecifie unspecifie en t d d Clinics complicati complicati on status on status Alcohol Alcohol Problem Active [facility] abuse abuse [facility] 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 Yareli kes - mike mike Memoria malnutriti malnutriti l on on [facility] Clinics Gastroesop Gastroesop Problem Active [facility] hageal hageal [facility] - reflux reflux Memoria disease disease l with with Outpati esophagiti esophagiti en t s s Clinics Hypomagnes Hypomagnes Problem Active [facility] emia emia [facility] Hiatal Hiatal Problem Active [facility] hernia hernia [facility] Gastritis Gastritis Problem Active [facility] with with [facility]ukes - hemorrhage hemorrhage Me moria , , l unspecifie unspecifie Ou tpati d d ent chronicity chronicity Cl inics , , unspecifie unspecifie d d gastritis gastritis type type Bilateral Bilateral Problem Active [facility] low back low back [facility] - pain pain Memoria without without l sciatica, sciatica, Outp ati unspecifie unspecifie en t d d Clinics chronicity chronicity Gastritis, Gastritis, Problem Active [facility] presence presence [facility] - of of Memoria bleeding bleeding l unspecifie unspecifie Ou tpati d, d, ent unspecifie unspecifie Cl inics d d chronicity chronicity , , unspecifie unspecifie d d gastritis gastritis type type Allergies, Adverse Reactions, Alerts Allergy Allergy Status Severity Reaction(s) Onset Inactive Treating Comm ents Source Name Type Date Date Clinician Imitrex Adverse Active Info Not [facility] Reaction Available [facility] [place] Adverse Active Info Not [facility] Reaction Available [facility] Medications Ordered Filled Start Stop Current Ordering Indication Dosage Frequency Signature Comments Components Source Medication Medication Date Date Medication? Clinician (SIG) Name Name Cefdinir Cefdinir 2019- Yes Carin as [facility] 02-27 [place] directed [facility] - 00:00: 00:00 Memoria 00 :00 [facility] Procedures This patient has no known procedures. Encounters Start End Encounter Admission Attending Care Care Encounter Source Date/Time Date/Time Type Type Clinicians Facility Department ID 2020-02-28 2020-02-28 Outpatient Yanni Young [id number] 09:52:00 09:52:00 t Specialty/U Yareli kes - Specialty rology [facility] a /Urology Clinic l Clinic Outpati ent Clinics 2020-02-25 2020-02-25 [facility] [id number] 11:00:00 11:00:00 t Specialty/U Yareli kes - Specialty rology Memori a /Urology Clinic l Clinic Outpati ent Clinics 2019-12-29 2019-12-29 [facility] [id number] 10:02:00 10:02:00 t Specialty/U Yareli kes - Specialty rology Memori a /Urology Clinic l Clinic Outpati ent Clinics 2019-12-29 2019-12-29 [facility] [id number] 10:02:00 10:02:00 t Specialty/U Yareli kes - Specialty rology Memori a /Urology Clinic l Clinic Outpati ent Clinics 2019-12-13 2019-12-13 [facility] [id number] [facility] 11:00:00 11:00:00 t Specialty/U Yareli kes - Specialty rology Memori a /Urology Clinic l Clinic Outpati ent Clinics 2019-12-13 2019-12-13 [facility] [id number] 08:52:00 08:52:00 t Specialty/U Yareli kes - Specialty rology Mem[facility] a /Urology Clinic l Clinic Outpati ent Clinics 2019-10-14 2019-10-14 [facility] [id number] 11:03:00 11:03:00 t Specialty/U Yareli kes - Specialty rology Mem[facility] a /Urology Clinic l Clinic Outpati ent Clinics 2019-10-12 2019-10-12 [facility] [id number] 13:32:00 13:32:00 t Specialty/U Yareli kes - Specialty rology Memori a /Urology Clinic l Clinic Outpati ent Clinics 2019-08-30 2019-08-30 [facility] [id number] 11:46:00 11:46:00 t [facility] Outpati ent Clinics 2019-08-22 2019-08-22 [facility] [id number] [facility] 12:35:00 12:35:00 t [facility] Outpati ent Clinics 2019-08-18 2019-08-18 [facility] [id number] 10:45:00 10:45:00 t [facility] Medicine l Medicine Outpati ent Clinics 2019-06-21 2019-06-21 [facility] [id number] [facility] 10:00:00 10:00:00 t Specialty/U Yareli kes - Specialty rology [facility] a /Urology Clinic l Clinic Outpati ent Clinics 2019-06-01 2019-06-01 [facility] [id number] [facility] 10[facility]00:00 10:00:00 t [facility] Medicine Outpati ent Clinics 2019-05-18 2019-05-18 [facility] [id number] [facility] 10:40:00 10:40:00 t [facility] l Medicine Outpati ent Clinics 2019-04-19 2019-04-19 [facility] [id number] 23:36:00 23:36:00 t [facility] Medicine Medicine Outpati ent Clinics 2019-04-03 2019-04-03 [facility] [id number] 04:57:00 04:57:00 t [facility] Medicine Medicine Outpati ent Clinics 2019-03-17 2019-03-17 [facility] [id number] 21:43:00 21:43:00 t [facility] Medicine l Medicine Outpati ent Clinics 2019-03-17 2019-03-17 [facility] [id number] [facility] 10[facility]40:00 10:40:00 t [facility] Medicine Medicine Outpati ent Clinics 2019-03-08 2019-03-08 [facility] [id number] 15:04:00 15:04:00 t [facility] Medicine Outpati ent Clinics 2019-03-01 2019-03-01 [facility] [id number] 20[facility]32:00 20:32:00 t [facility] Outpati ent Clinics 2019-02-26 2019-02-26 [facility] [id number] [facility] 16:08:00 16:08:00 t [facility] Outpati ent Clinics 2019-02-22 2019-02-22 [facility] [id number] 08:19:00 08:19:00 t [facility] Outpati ent Clinics 2019-02-15 2019-02-15 [facility] [id number] 09:20:00 09:20:00 t [facility] Outpati ent Clinics 2019-01-18 2019-01-18 [facility] [id number] [facility] 10:00:00 10:00:00 t Specialty/U Yareli kes - Specialty rology Memori a /Urology Clinic l Clinic Outpati ent Clinics 2018-09-02 2018-09-02 [facility] [id number] 10:45:00 10:45:00 t [facility] Outpati ent Clinics 2018-07-21 2018-07-21 [facility] [id number] [facility] 09:30:00 09:30:00 t Specialty/U Yareli kes - Specialty rology Mem[facility] a /Urology Clinic l Clinic Outpati ent Clinics 2018-03-11 2018-03-11 [facility] [id number] 09:30:00 09:30:00 t Specialty/U Yareli kes - Specialty rology [facility] a /Urology Clinic l Clinic Outpati ent Clinics 2018-02-19 2018-02-19 [facility] [id number] 09:00:00 09:00:00 t Specialty/U Yareli kes - Specialty rology Mem[facility] a /Urology Clinic l Clinic Outpati ent Clinics 2018-01-16 2018-01-16 [facility] [id number] [facility] 15:30:00 15:30:00 t Specialty/U Yareli kes - Specialty rology Mem[facility] a /Urology Clinic l Clinic Outpati ent Clinics 2017-12-25 2017-12-25 [facility] [id number] [address] 10:38:00 10:38:00 t Specialty/U Yareli kes - Specialty rology [facility] a /Urology Clinic l Clinic Outpati ent Clinics 2017-12-24 2017-12-24 [facility] [id number] 09:52:00 09:52:00 t Specialty/U Yareli kes - Specialty rology [facility] a /Urology Clinic l Clinic Outpati ent Clinics 2017-12-11 2017-12-11 [facility] [id number] [facility] 09:30:00 09:30:00 t Specialty/U Yareli kes - Specialty rology [facility] a /Urology Clinic l Clinic Outpati ent Clinics 2017-12-09 2017-12-09 [facility] [id number] 09:35:00 09:35:00 t Specialty/U Yareli kes - Specialty rology [facility] a /Urology Clinic l Clinic Outpati ent Clinics 2017-11-20 2017-11-20 [facility] [id number] 09:00:00 09:00:00 t Specialty/U Yareli kes - Specialty rology [facility] a /Urology Clinic l Clinic Outpati ent Clinics 2017-11-06 2017-11-06 [facility] [id number] 10:05:00 10:05:00 t Specialty/U Yareli kes - Specialty rology [facility] a /Urology Clinic l Clinic Outpati ent Clinics 2017-11-06 2017-11-06 [facility] [id number] 09:12:00 09:12:00 t Specialty/U Yareli kes - Specialty rology Mem[facility] a /Urology Clinic l Clinic Outpati ent Clinics 2017-11-04 2017-11-04 [facility] [id number] 09:45:00 09:45:00 t Specialty/U Yareli kes - Specialty rology Mem[facility] a /Urology Clinic l Clinic Outpati ent Clinics 2017-10-20 2017-10-20 [facility] [id number] 08:45:00 08:45:00 t [facility] Medicine Medicine Outpati ent Clinics Results This patient has no known results.
--- OUTSIDE RECORDS SUMMARY | 2020-03-10 06:59 | XMS REPORT ---
[...] function test R94.6 Active Medications Medication Code System Code Instructions Start Date End Date Status Dosage Cipro [facility] [id number] 500 MG Orally December 28, January 02, Active 1 ta blet every 12 hrs 2019 2019 Results No Known Results Summary Purpose eClinicalWorks Submission
[2020-03-10] MEDS ORDERED: NA CHLORIDE 0.9% 500 ML ONE (07:25)
[2020-03-10] MEDS ORDERED: FAMOTIDINE 20 MG/2 ML VIAL IV ONE (07:33)
[2020-03-10 07:57] LABS: Protime INR 1.49
[2020-03-10 07:58] LABS: Absolute Lymphocytes (CBC) 0.7 K/uL (0.7-4.9); Basophils % 0.3 % (0-1.3); Hematocrit 47.1 % (36.0-45.0); Lymphocytes % 5.4 % (15.3-44.8); RBC Red Blood Cell Count 4.39 M/uL (3.86-4.86)
--- NOTE | 2020-03-10 08:01 | RAD REPORT ---
EXAM DESCRIPTION: CT - Head Brain Wo Cont - 03/10/2020 7:43 am CLINICAL HISTORY: syncope, slurred speech COMPARISON: Head Brain Wo Cont dated 05/19/2018 TECHNIQUE: Axial 5 mm thick images of the head were obtained without IV contrast. All CT scans are performed using dose optimization technique as appropriate and may include automated exposure control or mA/KV adjustment according to patient size. FINDINGS: No intracranial hemorrhage, mass, edema or shift of mid-line structures. No acute cortical based infarction. No cortical edema or sulcal effacement. Atrophy changes are mild to moderate for a ge with ventricles in proportion. No abnormal extra-axial fluid collections. Chronic ischemic change in the cerebral white matter is mild. Mastoid air cells and visualized portions of the paranasal sinuses are clear. No acute bony findings. IMPRESSION: No acute intracranial finding identifiable. Atrophy and chronic ischemic changes are present and similar to May 2018.
--- NOTE | 2020-03-10 08:08 | RAD REPORT ---
EXAM DESCRIPTION: RAD - Chest Single View - 03/10/2020 7:22 am CLINICAL HISTORY: syncope, fall, chest pain COMPARISON: Portable July 2019 TECHNIQUE: AP portable chest image was obtained 03/10/2020 7:22 am . FINDINGS: Lungs are clear. Heart and vasculature are normal. No measurable pleural effusion and no p neumothorax. No acute bony abnormality seen. No acute aortic findings suspected. IMPRESSION: No acute cardiopulmonary process.
[2020-03-10 08:16] LABS: Albumin 3.8 g/dL (3.4-5.0); Bilirubin Direct 3.2 mg/dL (0-0.2); Magnesium 1.6 mg/dL (1.8-2.4); Potassium 3.4 mmol/L (3.5-5.1); Protein, Total 7.1 g/dL (6.4-8.2); Troponin (Emerg Dept Use Only) 0.05 ng/mL (0.0-0.045)
[2020-03-10 08:17] LABS: Bilirubin Total 5.3 mg/dL (0.2-1.0)
[2020-03-10 08:35] LABS: Urine Blood 2+ (NEG); Urine Glucose NEGATIVE (NEG); Urine Protein NEGATIVE (NEG); Urine pH 5.5 (5.0-7.0)
[2020-03-10 08:35] LABS: Urine Bacteria 20-50 /HPF (<20); Urine Culture Reflex Order NOT NEEDED; Urine Mucus HEAVY /HPF (NONE SEEN)
[2020-03-10 08:50] LABS: Blood Morphology Comment NOTED (NOT SEEN); Macrocytosis 1+; Platelet Estimate DECR; White Blood Cell Scan OK
[2020-03-10] MEDS ORDERED: FOLIC ACID 1 MG, THIAMINE HCL 100 MG, MULTIVITAMINS INJ 10 ML in NA CHLORIDE 0.9% 1,000 ML IV ONE (09:45)
--- NOTE | 2020-03-10 10:12 | RAD REPORT ---
EXAM DESCRIPTION: CT - Stone Protocol - 03/10/2020 9:44 am CLINICAL HISTORY: elevated lipase Abdominal pain COMPARISON: Abdomen Pelvis Wo Contrast dated 03/04/2019; Abdomen Exam Limited dated 03/10/2020 TECHNIQUE: Axial [address] imaging of the abdomen and pelvis was performed without IV contrast. No IV contrast was given because of allergy, abnormal renal function, patient refusal or physician re quest. No oral contrast given. All CT scans are performed using dose optimization technique as appropriate and may include automated exposure control or mA/KV adjustment according to patient size. FINDINGS: No suspicious findings in the lung bases. Diffuse fatty infiltration is present within the liver. No focal liver lesions seen on noncontrast im aging. No portal vein abnormality evident. No focal splenic abnormality. Punctate gallstones or dense sludge present in the gallbladder lumen. Correlation can be made with gallbladder sonography. No wal l thickening or pericholecystic fluid seen. No biliary tree dilatation. No solid or cystic mass of the pancreatic parenchyma seen. There is stranding in the peripancreatic fatty tissues near the tail of the pancreas extending along the anterior renal fascia on the left and superiorly adjacent to the spleen. No mass or loculated fluid collection in the peripancreatic tissu es. No hydronephrosis or suspicious renal mass. Small 11 millimeter hyperdense focus in the inferior left kidney is probably a high protein content cysts. This has not change from February 2019 imaging. No si gnificant adrenal finding. Isodense renal masses and pyelonephritis cannot be excluded in the absence of IV contrast. Urinary bladder is mostly contracted. Uterus and ovaries show no suspicious findings . No dilated bowel wall or focal bowel wall mass. There is mild stranding adjacent to the splenic flexu re of the colon. This is believed to be secondary from the pancreatic changes. No free air, free fluid or pneumatosis. No hernia, mass or bulky lymphadenopathy. No suspicious bony findings. L3-4 degenerative disc disease present. Degenerative changes in the spin e are minimal. IMPRESSION: Edematous/inflammatory type stranding is present adjacent to the pancreatic tail and the splenic flexure of the colon. No mass, abscess or surgically emergent finding. Imaging findings favor mild acute pancreatitis of the pancreatic tail rather than colitis. Correlatio n is needed with clinical presentation and laboratory findings. Fatty infiltration of the liver is present. Dense sludge or possible punctate gallstones in the gallb ladder lumen. This can be correlated with sonography.
--- NOTE | 2020-03-10 10:13 | RAD REPORT ---
EXAM DESCRIPTION: US - Abdomen Exam Limited - 03/10/2020 10:02 am CLINICAL HISTORY: liver failure COMPARISON: Stone Protocol dated 03/10/2020 FINDINGS: No gallstones are identified. There is no wall thickening or pericholecystic fluid. Hyperd ense area within the lumen of the gallbladder on the CT study is probably thickened bile or sludge. No common duct stone or biliary tree dilatation identified. IMPRESSION: No gallstones are identified. Patient may have thickened bile or sludge. No active gallb ladder process seen. No biliary tree dilatation.
--- NOTE | 2020-03-10 10:46 | ER ---
Nurse's Notes [facility] Name: Ciara Faith Age: 70 yrs Sex: Female : 1950 Arrival Date: 03/10/2020 Time: 06:57 Bed 2 Private MD: Diagnosis: Hypomagnesemia;Acute Kidney Injury;Liver Failure;Acute pancreatitis;Syncope and collapse Presentation: 03/10 06:57 Chief complaint: EMS states: Reports pt was walking to the restroom and passed out, ea reports he caught her before she hit the floor. EMS states pt was hypotensive and tachy sating at 97% RA. Family reported to EMS that family had been weaning her off alcohol. Pt reports she is a daily vodka drinker, yesterday she drank about 3 oz. Coronavirus screen: At this time, the client does not indicate any symptoms associated with coronavirus-19. Ebola Screen: No symptoms or risks identified at this time. Initial Sepsis Screen: Does the patient meet any 2 criteria? No. Patient's initial sepsis screen is negative. Does the patient have a suspected source of infection? No. Patient's initial sepsis screen is negative. Risk Assessment: Do you want to hurt yourself or someone else? Patient reports no desire to harm self or others. Onset of symptoms was March 10, 2020. 06:57 Method Of Arrival: EMS: [facility] 06:57 Acuity: LINA 3 ea Triage Assessment: 07:03 General: Appears comfortable, slender, Behavior is cooperative, quiet. Pain: Denies ea pain. Historical: - Allergies: 07:04 [place]; ea - Home Meds: 07:04 pantoprazole 40 mg Oral TbEC once daily [Active]; METHANEM twice a day [Active]; ea gabapentin 100 mg Oral cap 1 caps as needed [Active]; - PMHx: 07:04 UTI; GERD; ea 10:59 Alcoholism; tw2 - Immunization history:: Adult Immunizations up to date. - Social history:: Smoking status: Patient denies any tobacco usage or history of. Patient uses alcohol, on a daily basis. Screenin:02 Abuse screen: Denies threats or abuse. Nutritional screening: No deficits noted. ea Tuberculosis screening: No symptoms or risk factors identified. Fall Risk None identified. Assessment: 07:35 General: Appears in no apparent distress. Behavior is cooperative, appropriate for age, tw2 drowsy, quiet. Pain: Denies pain. Neuro: Level of Consciousness is awake, alert, obeys commands, Oriented to person. Cardiovascular: Heart tones S1 S2 Patient's skin is warm and dry. Respiratory: Airway is patent Respiratory effort is even, unlabored, Respiratory pattern is regular, symmetrical, Breath sounds are clear bilaterally. GI: Abdomen is round non-distended, Bowel sounds present X 4 quads. Reports indigestion. : No signs and/or symptoms were reported regarding the genitourinary system. EENT: No signs and/or symptoms were reported regarding the EENT system. Derm: No signs and/or symptoms reported regarding the dermatologic system. Derm: Skin is fragile, is thin, Skin is dry. Musculoskeletal: Range of motion: intact in all extremities. 08:14 Reassessment: No changes from previously documented assessment. Patient and/or family tw2 updated on plan of care and expected duration. Pain level reassessed. 09:15 Reassessment: Patient appears in no apparent distress at this time. No changes from hb previously documented assessment. Patient and/or family updated on plan of care and expected duration. Pain level reassessed. 10:14 Reassessment: Patient appears in no apparent distress at this time. No changes from hb previously documented assessment. Patient and/or family updated on plan of care and expected duration. Pain level reassessed. 11:30 Reassessment: Patient appears in no apparent distress at this time. No changes from tw2 previously documented assessment. Patient and/or family updated on plan of care and expected duration. Pain level reassessed. 11:50 Reassessment: Patient appears in no apparent distress at this time. No changes from tw2 previously documented assessment. Patient and/or family updated on plan of care and expected duration. Pain level reassessed. Vital Signs: 06:57 BP 101 / 56; Pulse 123; Resp 19; Temp 97.6; Pulse Ox 98% ; Weight 56.7 kg; Height 5 ft. ea 4 in. (162.56 cm); 08:14 BP 103 / 60; Pulse 116; Resp 17; Pulse Ox 97% on R/A; tw2 09:20 BP 143 / 61; Pulse 105; Resp 21; Pulse Ox 98% on R/A; tw2 10:14 BP 93 / 75; Pulse 103; Resp 18; Pulse Ox 98% on R/A; hb 11:30 BP 135 / 66; Pulse 95; Resp 17; Pulse Ox 97% on R/A; tw2 06:57 Body Mass Index 21.46 (56.70 kg, 162.56 cm) ea ED Course: 06:57 Patient arrived in ED. iw 06:58 Damián Goldman PA is PHCP. jmm 06:58 Ra Sanabria MD is Attending Physician. jmm 07:02 Triage completed. ea 07:02 Arm band placed on right wrist. Patient placed in an exam room, on a stretcher, on ea pulse oximetry. 07:02 Patient has correct armband on for positive identification. Bed in low position. Call ea light in reach. Side rails up X2. potline monitor on. Pulse ox on. NIBP on. 07:14 Sandra Foster RN is Primary Nurse. tw2 07:19 XRAY Chest (1 view) In Process Unspecified. EDMS 07:22 Missed attempt(s): 22 gauge in left antecubital area. per Alejandro,Tech. Bleeding tw2 controlled, band aid applied, catheter tip intact. Missed attempt(s): 22 gauge in right antecubital area. per Alejandro Tech. Bleeding controlled, band aid applied, catheter tip intact. Missed attempt(s): 24 gauge in right hand. per ERICA Mckeon. Bleeding controlled, band aid applied, catheter tip intact. 07:30 Missed attempt(s): 22 gauge in right wrist. NELIA Lizama Tech. Bleeding controlled, band tw2 aid applied, catheter tip intact. 07:38 Inserted saline lock: 24 gauge in left hand, using aseptic technique. Blood collected. em1 07:43 CT Head Brain wo Cont In Process Unspecified. EDMS 08:12 Straight cath inserted, using sterile technique, 18 Fr. scant amount of urine obtained, tw2 Linda,RN served as cotton bag clipper, pt tolerated well. 09:32 Awaiting: Banana bag from pharmacy at this time, request faxed. tw2 09:[address] In Process Unspecified. EDMS 10:02 US Abdomen Limited In Process Unspecified. EDMS 10:19 initiated a transfer with Jessica Monroe from the [facility]. eb 10:[address] Rubin the explosion welder carbonizer for [facility] with Damián AN for patient eb transfer consultation. 10:44 administrative approval given by Jessica Monroe/ Patient has been accepted to [facility] [address] 1 Bed 3/ Dr. Diane Rubin has accepted the patient in transfer/ report to be called to [phone]. 11:20 Report given to ERICA Reyes at [facility]. tw2 11:49 No provider procedures requiring assistance completed. Patient transferred, IV remains tw2 in place. Administered Medications: 07:37 Drug: Pepcid 20 mg Route: IVP; Site: left hand; tw2 09:54 Follow up: Response: No adverse reaction tw2 07:46 Drug: NS 0.9% 500 ml Route: IV; Rate: bolus; Site: left hand; hb 09:00 Follow up: Response: No adverse reaction; IV Status: Completed infusion; IV Intake: tw2 500ml 09:54 Drug: Banana Bag - (NS 0.9% 1000 ml, foLIC Acid 1 mg, Thiamine 100 mg, Multivitamin 1 tw2 amp) Route: IV; Rate: calculated rate; Site: left hand; 11:50 Follow up: IV Status: Infusion continued upon transfer tw2 10:43 CANCELLED (Duplicate Order): vancoMYCIN 1 grams IVPB once over 2 hrs ss 10:50 Drug: Cefepime 1 grams {Note: IVP available only.} Route: IVPB; Rate: 200 bolus; tw2 Infused Over: 5 mins; Site: left hand; 10:56 Follow up: Response: No adverse reaction; IV Status: Completed infusion tw2 10:55 Drug: NS 0.9% 1000 ml Route: IV; Rate: 1 bolus; Site: left hand; tw2 11:50 Follow up: IV Status: Infusion continued upon transfer tw2 11:17 Drug: vancoMYCIN 1 grams Route: IVPB; Infused Over: 2 hrs; Site: left hand; tw2 11:50 Follow up: IV Status: Infusion continued upon transfer tw2 Point of Care Testing: Blood Glucose: 07:16 Blood Glucose: 135 mg/dL; hb Ranges: Intake: 09:00 IV: 500ml; Total: 500ml. tw2 Outcome: 10:46 ER care complete, transfer ordered by MD. mcleod 11:49 Transferred by ground EMS to [facility]. tw2 11:49 Condition: stable 11:49 Instructed on the need for transfer. 11:50 Patient left the ED. tw2 Signatures: Dispatcher [employer] EDMS Damián Goldman PA PA jmm Williams, Irene, RN RN Shiva Hutchins em1 Linda Downey RN RN hb Wise, Tara, RN RN tw2 Hedy Harper RN RN ea Botello, Elizabeth eb Smirch, Shelby RN ss Corrections: (The following items were deleted from the chart) 09:32 07:35 Neuro: Level of Consciousness is awake, alert, obeys commands, Oriented to tw2 person, place, time, situation, tw2
--- NOTE | 2020-03-10 10:46 | EDPHYS ---
Physician Documentation [facility] Name: Ciara Faith Age: 70 yrs Sex: Female : 1950 Arrival Date: 03/10/2020 Time: 06:57 Bed 2 Private MD: ED Physician Ra Sanabria HPI: 03/10 07:14 This 70 yrs old Female presents to ER via EMS with complaints of syncope, low jmm blood pressure. 07:14 The patient has experienced syncope. Onset: The symptoms/episode began/occurred jm acutely, just prior to arrival. Duration: This was a single episode, that lasted 3 minute(s). Context: occurred at home, occurred while the patient was standing. Associated injury: The patient did not suffer any apparent associated injury. Associated signs and symptoms: Pertinent positives: chest pain. The patient has experienced a previous episode. Historical: - Allergies: 07:04 [place]; ea - Home Meds: 07:04 pantoprazole 40 mg Oral TbEC once daily [Active]; METHANEM twice a day [Active]; ea gabapentin 100 mg Oral cap 1 caps as needed [Active]; - PMHx: 07:04 UTI; GERD; ea 10:59 Alcoholism; tw2 - Immunization history:: Adult Immunizations up to date. - Social history:: Smoking status: Patient denies any tobacco usage or history of. Patient uses alcohol, on a daily basis. ROS: 07:14 Respiratory: Negative for shortness of breath, cough, wheezing, and pleuritic chest jmm pain. 07:14 Abdomen/GI: Negative for abdominal pain, nausea, vomiting, diarrhea, and constipation. 07:14 Constitutional: Positive for fatigue. 07:14 Cardiovascular: Positive for chest pain. 07:14 Neuro: Positive for weakness. 07:14 All other systems are negative. Exam: 07:14 Constitutional: This is a well developed, well nourished patient who is awake, alert, jmm and in no acute distress. Head/Face: atraumatic. Eyes: EOMI, no conjunctival erythema appreciated ENT: Moist Mucus Membranes Neck: Trachea midline, Supple Chest/axilla: Normal chest wall appearance and motion. Respiratory: Normal respirations, no respiratory distress appreciated Abdomen/GI: Non distended, soft Back: Normal ROM 07:14 Skin: General appearance color normal MS/ Extremity: Moves all extremities, no obvious deformities appreciated, no edema noted to the lower extremities 07:14 Cardiovascular: Rate: tachycardic, Rhythm: regular, Pulses: no pulse deficits are appreciated. 07:14 Neuro: Orientation: is normal, Mentation: slow to respond. 07:14 Psych: Behavior/mood is pleasant, cooperative. Vital Signs: 06:57 BP 101 / 56; Pulse 123; Resp 19; Temp 97.6; Pulse Ox 98% ; Weight 56.7 kg; Height 5 ft. ea 4 in. (162.56 cm); 08:14 BP 103 / 60; Pulse 116; Resp 17; Pulse Ox 97% on R/A; tw2 09:20 BP 143 / 61; Pulse 105; Resp 21; Pulse Ox 98% on R/A; tw2 10:14 BP 93 / 75; Pulse 103; Resp 18; Pulse Ox 98% on R/A; hb 11:30 BP 135 / 66; Pulse 95; Resp 17; Pulse Ox 97% on R/A; tw2 06:57 Body Mass Index 21.46 (56.70 kg, 162.56 cm) ea MDM: 06:59 Patient medically screened. cabrera 10:42 Data reviewed: vital signs, nurses notes. Counseling: I had a detailed discussion with hasrha the patient and/or guardian regarding: the historical points, exam findings, and any diagnostic results supporting the discharge/admit diagnosis, lab results, radiology results, the need to transfer to another facility. ED course: I discussed the patient with Dr. Herron whom advised to transfer due to lack of GI. I discussed the patient with Dr. Faustin whom accepted admission. . 03/10 06:59 Order name: Basic Metabolic Panel; Complete Time: 08:23 [facility] 03/10 06:59 Order name: CBC with Diff; Complete Time: 09:23 [facility] 03/10 06:59 Order name: LFT's; Complete Time: 08:23 [facility] 03/10 06:59 Order name: Magnesium; Complete Time: 08:23 [facility] 03/10 06:59 Order name: NT PRO-BNP; Complete Time: 08:23 [facility] 03/10 06:59 Order name: PT-INR; Complete Time: 08:09 [facility] 03/10 06:59 Order name: Troponin (emerg Dept Use Only); Complete Time: 08:23 [facility] 03/10 06:59 Order name: ETOH Level; Complete Time: 08:23 [facility] 03/10 06:59 Order name: Urine Microscopic Only; Complete Time: 08:48 [facility] 03/10 07:01 Order name: Lipase; Complete Time: 08:48 [facility] 03/10 07:27 Order name: Glucose, Ancillary Testing; Complete Time: 07:33 EDMS 03/10 08:17 Order name: Urine Dipstick--Ancillary (enter results); Complete Time: 08:48 eb 03/10 08:50 Order name: CBC Smear Scan; Complete Time: 09:23 EDMS 03/10 08:58 Order name: AMMONIA; Complete Time: 09:46 [facility] 03/10 06:59 Order name: XRAY Chest (1 view); Complete Time: 08:09 [facility] 03/10 06:59 Order name: EKG; Complete Time: 06:59 [facility] 03/10 06:59 Order name: Cardiac monitoring; Complete Time: 07:42 [facility] 03/10 07:11 Order name: CT Head Brain wo Cont; Complete Time: 08:09 [facility] 03/10 08:32 Order name: US Abdomen Limited; Complete Time: 10:16 [facility] 03/10 09:32 Order name: Stone Protocol CT; Complete Time: 10:16 [facility] 03/10 10:39 Order name: Acetaminophen; Complete Time: 11:11 [facility] 03/10 10:41 Order name: Lactate [facility] 03/10 10:41 Order name: Lactate; Complete Time: 12:02 EDMD 03/10 06:59 Order name: EKG - Nurse/Tech; Complete Time: 07:14 [facility] 03/10 06:59 Order name: IV Saline Lock; Complete Time: 07:38 [facility] 03/10 06:59 Order name: Labs collected and sent; Complete Time: 07:42 [facility] 03/10 06:59 Order name: O2 Per Protocol; Complete Time: 07:14 [facility] 03/10 06:59 Order name: O2 Sat Monitoring; Complete Time: 07:14 [facility] 03/10 06:59 Order name: Urine Dipstick-Ancillary (obtain specimen); Complete Time: 08:16 [facility] 03/10 08:12 Order name: Straight Cath - Urine; Complete Time: 08:12 tw2 Administered Medications: 07:37 Drug: Pepcid 20 mg Route: IVP; Site: left hand; tw2 09:54 Follow up: Response: No adverse reaction tw2 07:46 Drug: NS 0.9% 500 ml Route: IV; Rate: bolus; Site: left hand; hb 09:00 Follow up: Response: No adverse reaction; IV Status: Completed infusion; IV Intake: tw2 500ml 09:54 Drug: Banana Bag - (NS 0.9% 1000 ml, foLIC Acid 1 mg, Thiamine 100 mg, Multivitamin 1 tw2 amp) Route: IV; Rate: calculated rate; Site: left hand; 11:50 Follow up: IV Status: Infusion continued upon transfer tw2 10:43 CANCELLED (Duplicate Order): vancoMYCIN 1 grams IVPB once over 2 hrs ss 10:50 Drug: Cefepime 1 grams {Note: IVP available only.} Route: IVPB; Rate: 200 bolus; tw2 Infused Over: 5 mins; Site: left hand; 10:56 Follow up: Response: No adverse reaction; IV Status: Completed infusion tw2 10:55 Drug: NS 0.9% 1000 ml Route: IV; Rate: 1 bolus; Site: left hand; tw2 11:50 Follow up: IV Status: Infusion continued upon transfer tw2 11:17 Drug: vancoMYCIN 1 grams Route: IVPB; Infused Over: 2 hrs; Site: left hand; tw2 11:50 Follow up: IV Status: Infusion continued upon transfer tw2 Point of Care Testing: Blood Glucose: 07:16 Blood Glucose: 135 mg/dL; hb Ranges: Critical Glucose Levels:Adult <50 mg/dl or >400 mg/dl <40 mg/dl or >180 mg/dl Disposition: 03/10/20 10:46 Transfer ordered to [facility]. Diagnosis are Hypomagnesemia, Acute Kidney Injury, Liver Failure, Acute pancreatitis, Syncope and collapse. - Reason for transfer: Higher level of care. - Accepting physician is Ramin. - Condition is Stable. - Problem is new. - Symptoms are unchanged. Addendum: 03/12/2020 08:46 Co-signature as Attending Physician, Ra Sanabria MD I agree with the assessment and c burk plan of care. Signatures: Dispatcher [employer] EDRa Alvarez MD MD cha Mickail, Joel, PA PA jmm Baxter, Heather, RN RN Sandra Foster RN RN tw2 Hedy Harper RN RN ea Smirch, Shelby RN ss Corrections: (The following items were deleted from the chart) 03/10 10:43 10:42 vancoMYCIN 1 grams IVPB once over 2 hrs ordered. harsha clark 11:50 10:46 03/10/2020 10:46 Transfer ordered to [facility]. tw2 Diagnosis is Hypomagnesemia; Acute Kidney Injury; Liver Failure; Acute pancreatitis; Syncope and collapse. Reason for transfer: Higher level of care. Accepting physician is Ramin. Condition is Stable. Problem is new. Symptoms are unchanged. harsha
[2020-03-10] MEDS ORDERED: CEFAZOLIN/SWI 1gm 1 GM/10 ML SYR ONE (10:57)
[2020-03-10] MEDS ORDERED: NA CHLORIDE 0.9% 1,000 ML ONE (10:57)
[2020-03-10] MEDS ORDERED: VANCOMYCIN/NS 1 gm 1 GM/250 ML BAG IV ONE (11:00)
--- NOTE | 2020-03-11 05:49 | EKG ---
Test Date: 2020-03-10 Test Time: 06:54:49 Supervisor [employer]: [employer]RON MEASUREMENT RESULTS: Intervals: Rate: 124 ID: [id number] QRSD: 80 QT: 328 QTc: 471 [place]: P: 70 ID: [id number] QRS: -18 T: 97 INTERPRETIVE STATEMENTS: Sinus tachycardia Possible Left atrial enlargement Abnormal QRS-T angle, consider primary T wave abnormality Abnormal ECG Compared to ECG 08/08/2019 11:10:29 T-wave abnormality now present Sinus rhythm no longer present Electronically Signed On 03-11-20 05:45:31 CDT by Prabhjot Delcid
[2020-03-14 11:50] VITALS: TEMP 97.6
[2020-03-14 11:54] VITALS: BP 135/66; O2SAT 97
== END 2020-03-10 11:50 | disposition short-term general hospital (02) ==
LOC: ER 06:56
DX: E83.42 Hypomagnesemia (principal); N17.9 Acute kidney failure, unspecified; K72.90 Hepatic failure, unspecified without coma; K85.90 Acute pancreatitis without necrosis or infection, unspecified; F10.20 Alcohol dependence, uncomplicated; K21.9 Gastro-esophageal reflux disease without esophagitis; Z88.5 Allergy status to narcotic agent
CPT/HCPCS: 96365; 96361; 93005; 85025; 80048; 36415; 80320; 82140; 83735; 80329; 85610; 82947; 80076; 83605; 84484; 83690; 83880; 70450; 76377; 74176; 71045; 76705; 51702; 96375; 99285; J3411; J3370; J0690; J7040; J7030 ×2; 81003; 81015

== ENCOUNTER 2020-05-29 10:14 | Observation (INO) | payer OTHER, MEDICARE ==
[2020-05-29 11:22] LABS: Absolute Lymphocytes (CBC) 0.6 K/uL (0.7-4.9); Basophils % 0.2 % (0-1.3); Hematocrit 45.8 % (36.0-45.0); Lymphocytes % 8.6 % (15.3-44.8); RBC Red Blood Cell Count 4.25 M/uL (3.86-4.86)
[2020-05-29] MEDS ORDERED: NA CHLORIDE 0.9% 1,000 ML ONE (11:29)
[2020-05-29] MEDS ORDERED: ONDANSETRON 4 MG/2 ML VIAL ONE (11:29)
--- OUTSIDE RECORDS SUMMARY | 2020-05-29 11:37 | XMS REPORT | Clinical Summary ---
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 Acute kidney injury 03/10/2020 Hyponatremia 03/10/2020 Encounters Date Type Specialty Care Team Description 03/10/2020 - Hospital Encounter Intensive Care Odilia Rubin Alc ohol-induced acute pancreatitis, unspecified complication status (Primary Dx); 03/14/2020 Smith Monroe Acute kidney injury (HCC); HyponatreSarai Reaves MD 03/10/2020 Telephone Critical Care Odilia Rubin, transfer Medicine Smith Monroe MD after 05/29/2019 Social History Tobacco Use Types Packs/Day Years Used Date Never Assessed Sex Assigned at Date Recorded Not on file Last Filed Vital Signs Vital Sign Reading Time Taken Comments Blood Pressure 138/63 03/14/2020 12:22 PM CDT Pulse 77 03/14/2020 12:22 PM CDT Temperature 36.2 C (97.1 F) 03/14/2020 12:22 PM CDT Respiratory Rate 18 03/14/2020 12:22 PM CDT Oxygen Saturation 99% 03/14/2020 12:22 PM CDT Inhaled Oxygen Concentration - - Weight 59.9 kg (132 lb 0.9 oz) 03/10/2020 2:00 PM CDT Height - - Body Mass Index - - Plan of Treatment Health Maintenance Due Date Last Done Comments BREAST CANCER SCREENING 1950 COLON CANCER SCREENING COLONOSCOPY 1950 PNEUMOCOCCAL 65+ YRS (1 of 1 - [id number]) 2015 MEDICARE ANNUAL WELLNESS (YEAR 2 or FIRST YEAR if no 01/13/2016 IPPE) INFLUENZA VACCINE (#1) 2020 Procedures Procedure Name Priority Date/Time Associated Comments Diagnosis POCT-GLUCOSE METER Routine 03/14/2020 12:24 Resul ts for this PM CDT procedure are i n the results section. POCT-GLUCOSE METER Routine 03/14/2020 5:37 Resul ts for this AM CDT procedure are i n the results section. CBC W/PLT COUNT & AUTO Routine 03/14/2020 5:26 R esults for this DIFFERENTIAL AM CDT procedure are i n the results section. PHOSPHORUS Routine 03/14/2020 5:26 Results for this AM CDT procedure are i n the results section. MAGNESIUM Routine 03/14/2020 5:26 Results for this AM CDT procedure are i n the results section. COMPREHENSIVE Routine 03/14/2020 5:26 Results fo r this METABOLIC PANEL AM CDT procedure ar e in the results section. CBC W/PLT COUNT & AUTO Routine 03/14/2020 5:26 R esults for this DIFFERENTIAL AM CDT procedure are i n the results section. POCT-GLUCOSE METER Routine 03/13/2020 11:47 Resul ts for this PM CDT procedure are i n the results section. POCT-GLUCOSE METER Routine 03/13/2020 2:07 Resul ts for this PM CDT procedure are i n the results section. POCT-GLUCOSE METER Routine 03/13/2020 12:28 Resul ts for this PM CDT procedure are i n the results section. PHOSPHORUS Routine 03/13/2020 7:33 Results for this AM CDT procedure are i n the results section. MAGNESIUM Routine 03/13/2020 7:33 Results for this AM CDT procedure are i n the results section. COMPREHENSIVE Routine 03/13/2020 7:33 Results fo r this METABOLIC PANEL AM CDT procedure ar e in the results section. POCT-GLUCOSE METER Routine 03/13/2020 7:24 Resul ts for this AM CDT procedure are i n the results section. POCT-GLUCOSE METER Routine 03/13/2020 6:52 Resul ts for this AM CDT procedure are i n the results section. CBC W/PLT COUNT & AUTO Routine 03/13/2020 5:56 R esults for this DIFFERENTIAL AM CDT procedure are i n the results section. CBC W/PLT COUNT & AUTO Routine 03/13/2020 5:56 R esults for this DIFFERENTIAL AM CDT procedure are i n the results section. POCT-GLUCOSE METER Routine 03/12/2020 4:01 Resul ts for this PM CDT procedure are i n the results section. POCT-GLUCOSE METER Routine 03/12/2020 12:56 Resul ts for this PM CDT procedure are i n the results section. POTASSIUM Routine 03/12/2020 12:11 Results for this PM CDT procedure are i n the results section. POCT-GLUCOSE METER Routine 03/12/2020 8:41 Resul ts for this AM CDT procedure are i n the results section. CBC W/PLT COUNT & AUTO Routine 03/12/2020 3:12 R esults for this DIFFERENTIAL AM CDT procedure are i n the results section. PHOSPHORUS Routine 03/12/2020 3:12 Results for this AM CDT procedure are i n the results section. MAGNESIUM Routine 03/12/2020 3:12 Results for this AM CDT procedure are i n the results section. COMPREHENSIVE Routine 03/12/2020 3:12 Results fo r this METABOLIC PANEL AM CDT procedure ar e in the results section. CBC W/PLT COUNT & AUTO Routine 03/12/2020 3:12 R esults for this DIFFERENTIAL AM CDT procedure are i n the results section. POCT-GLUCOSE METER Routine 03/11/2020 7:41 Resul ts for this PM CDT procedure are i n the results section. POCT-GLUCOSE METER Routine 03/11/2020 5:59 Resul ts for this PM CDT procedure are i n the results section. POCT-GLUCOSE METER Routine 03/11/2020 12:18 Resul ts for this PM CDT procedure are i n the results section. POCT-GLUCOSE METER Routine 03/11/2020 5:34 Resul ts for this AM CDT procedure are i n the results section. CBC W/PLT COUNT & AUTO Routine 03/11/2020 4:42 R esults for this DIFFERENTIAL AM CDT procedure are i n the results section. PHOSPHORUS Routine 03/11/2020 4:42 Results for this AM CDT procedure are i n the results section. MAGNESIUM Routine 03/11/2020 4:42 Results for this AM CDT procedure are i n the results section. COMPREHENSIVE Routine 03/11/2020 4:42 Results fo r this METABOLIC PANEL AM CDT procedure ar e in the results section. CBC W/PLT COUNT & AUTO Routine 03/11/2020 4:42 R esults for this DIFFERENTIAL AM CDT procedure are i n the results section. UREA NITROGEN, RANDOM Routine 03/11/2020 2:45 Re sults for this URINE AM CDT procedure are i n the results section. CREATININE, RANDOM Routine 03/11/2020 2:45 Resul ts for this URINE AM CDT procedure are i n the results section. SODIUM, RANDOM URINE Routine 03/11/2020 2:45 Res ults for this AM CDT procedure are i n the results section. RAPID DRUG SCREEN, Routine 03/11/2020 2:45 Resul ts for this URINE AM CDT procedure are i n the results section. OSMOLALITY, URINE Routine 03/11/2020 2:44 Result s for this AM CDT procedure are i n the results section. URINALYSIS W/ REFLEX Routine 03/11/2020 2:44 Res ults for this URINE CULTURE AM CDT procedure are in the results section. POCT-GLUCOSE METER Routine 03/11/2020 12:48 Resul ts for this AM CDT procedure are i n the results section. LACTIC ACID, VENOUS Routine 03/10/2020 9:05 Resu lts for this PM CDT procedure are i n the results section. POCT-GLUCOSE METER Routine 03/10/2020 5:59 Resul ts for this PM CDT procedure are i n the results section. BLOOD CULTURE Routine 03/10/2020 2:42 Results fo r this PM CDT procedure are i n the results section. SARS-COV2/RT-PCR ([facility] Routine 03/10/2020 2:27 R esults for this & REF LABS) PM CDT procedure are i n the results section. CALCIUM, IONIZED Routine 03/10/2020 2:19 Results for this PM CDT procedure are i n the results section. CBC W/PLT COUNT & AUTO STAT 03/10/2020 2:16 R esults for this DIFFERENTIAL PM CDT procedure are i n the results section. T4, FREE Routine 03/10/2020 2:16 Results for this PM CDT procedure are i n the results section. CORTISOL STAT 03/10/2020 2:16 Results for this PM CDT procedure are i n the results section. TSH/FREE T4 IF STAT 03/10/2020 2:16 Results f or this INDICATED PM CDT procedure are i n the results section. OSMOLALITY, SERUM STAT 03/10/2020 2:16 Result s for this PM CDT procedure are i n the results section. PROCALCITONIN STAT 03/10/2020 2:16 Results fo r this PM CDT procedure are i n the results section. LACTIC ACID, VENOUS STAT 03/10/2020 2:16 Resu lts for this PM CDT procedure are i n the results section. HEPATITIS PANEL, ACUTE STAT 03/10/2020 2:16 R esults for this PM CDT procedure are i n the results section. TROPONIN I STAT 03/10/2020 2:16 Results for this PM CDT procedure are i n the results section. AMMONIA STAT 03/10/2020 2:16 Results for this PM CDT procedure are i n the results section. BLOOD GAS, VENOUS STAT 03/10/2020 2:16 Result s for this PM CDT procedure are i n the results section. FIBRINOGEN STAT 03/10/2020 2:16 Results for this PM CDT procedure are i n the results section. PT/APTT STAT 03/10/2020 2:16 Results for this PM CDT procedure are i n the results section. TRIGLYCERIDES STAT 03/10/2020 2:16 Results fo r this PM CDT procedure are i n the results section. AMYLASE STAT 03/10/2020 2:16 Results for this PM CDT procedure are i n the results section. LIPASE STAT 03/10/2020 2:16 Results for this PM CDT procedure are i n the results section. B-TYPE NATRIURETIC STAT 03/10/2020 2:16 Resul ts for this FACTOR (BNP) PM CDT procedure are i n the results section. PHOSPHORUS STAT 03/10/2020 2:16 Results for this PM CDT procedure are i n the results section. MAGNESIUM STAT 03/10/2020 2:16 Results for this PM CDT procedure are i n the results section. COMPREHENSIVE STAT 03/10/2020 2:16 Results fo r this METABOLIC PANEL PM CDT procedure ar e in the results section. CBC W/PLT COUNT & AUTO STAT 03/10/2020 2:16 R esults for this DIFFERENTIAL PM CDT procedure are i n the results section. BLOOD CULTURE Routine 03/10/2020 2:16 Results fo r this PM CDT procedure are i n the results section. after 05/29/2019 Results POC-Glucose meter (03/14/2020 12:24 PM CDT)Only the most recent of16 results within the time period is included. POC-Glucose Meter 103Comment: : 70 - 110 mg/dL [facility] TESTED AT [place] [id number] [facility], [id number]: Craft Coordinator/Technic monique ID = [id number] for EMILY SOLITARIO Specimen Blood Performing Organization Address City/State/Zipcode Phone Number [address] [phone] CENTER CBC with platelet count + automated diff (03/14/2020 5:26 AM CDT)Only the most recent of5 resultswithin the time period is included. Pathologist Sig nature WBC 3.5 3.5 - 10.5 [facility] K/L [facility] RBC 2.79 (L) 3.93 - 5.22 [facility] M/L [facility] Hemoglobin 10.5 (L) 11.2 - 15.7 [facility] GM/DL [facility] Hematocrit 29.2 (L) 34.1 - 44.9 % [facility] MCV 104.7 (H) 79.4 - 94.8 fL [facility] MCH 37.6 (H) 25.6 - 32.2 pg [facility] MCHC 36.0 (H) 32.2 - 35.5 [facility] GM/DL [facility] RDW 14.8 (H) 11.7 - 14.4 % [facility] Platelets 80 (L) 150 - 450 K/CU [facility] MPV 10.5 9.4 - 12.3 fL [facility] nRBC 0 0 - 0 /100 WBC [facility] % Neutros 56 % [facility] % Lymphs 12 % [facility] % Monos 28 % [facility] % Eos 2 % [facility] % Baso 0 % [facility] [place] # Neutros 1.92 1.56 - 6.13 [facility] # Lymphs 0.43 (L) 1.18 - 3.74 [facility] # Monos 0.98 (H) 0.24 - 0.36 [facility] # Eos 0.07 0.04 - 0.36 [facility] # Baso 0.01 0.01 - 0.08 [facility] Immature 1 0 - 1 % [facility] Specimen Blood Performing Organization Address City/[facility] Phone Number [address] [address] CENTER Phosphorus (03/14/2020 5:26 AM CDT)Only the most recent of5 resultswithin the time period is included. Pathologist Sig nature Phosphorus 2.3 2.3 - 4.7 mg/dL [facility] Specimen Blood Narrative Performed At Craft Coordinator ID - [facility] Performing Organization Address [facility] Phone Number [address] [address] CENTER Magnesium (03/14/2020 5:26 AM CDT)Only the most recent of5 resultswithin the time period is included. Pathologist Sig nature Magnesium 1.6 1.6 - 2.6 mg/dL [facility] Specimen Blood Narrative Performed At Craft Coordinator ID - [facility] Performing Organization Address City/[facility] Phone Number [address] [address] CENTER Comprehensive metabolic panel (03/14/2020 5:26 AM CDT)Only the most recent of5 resultswithin the time period is included. Protein, Total 5.1 (L) 6.0 - 8.3 [facility] gm/dL [facility] Albumin 3.0 (L) 3.5 - 5.0 [facility] g/dL [facility] Alkaline 128 40 - 150 U/L [facility] Phosphatase [facility] Total Bilirubin 2.5 (H) 0.2 - 1.2 [facility] mg/dL [facility] Sodium 132 (L) 136 - 145 [facility] meq/L [facility] Potassium 2.5 (LL) 3.5 - 5.1 [facility] meq/L [facility] Chloride 98 98 - 107 [facility] meq/L [facility] CO2 21 (L) 22 - 29 meq/L [facility] BUN 10 7 - 21 mg/dL [facility] Creatinine 0.55 (L) 0.57 - 1.25 [facility] mg/dL [facility] Glucose 89 70 - 105 [facility] mg/dL [facility] Calcium 7.6 (L) 8.4 - 10.2 [facility] mg/dL [facility] AST 75 (H) 5 - 34 U/L [facility] ALT 64 (H) 6 - 55 U/L [facility] EGFR 109Comment: mL/min/1.73 [facility] ESTIMATED GFR IS sq [facility] NOT ACCURATE MEDICAL CENTER CREATININE CLEARANCE IN PREDICTING GLOMERULAR FILTRATION RATE. ESTIMATED GFR IS NOT APPLICABLE FOR DIALYSIS PATIENTS. Specimen Blood Narrative Performed At Craft Coordinator ID - EDASI [facility] Performing Organization Address City/State/Zipcode Phone Number [facility] [address] [place] [address] CENTER Potassium (03/12/2020 12:11 PM CDT) Pathologist Sig nature Potassium 3.1 (L)Comment: 3.5 - 5.1 meq/L [facility] Specimen [facility] hemolyzed CENTER Specimen Blood Narrative Performed At Craft Coordinator ID - JOHN Barfield [facility] Performing Organization Address [facility]/Zipcode Phone Number [address] [address] CENTER Urea Nitrogen, random urine (03/11/2020 2:45 AM CDT) Pathologist Sig nature Urea Nitrogen, Ur 798 mg/dL [facility] Specimen Urine Narrative Performed At Reference Range: No Normals [facility] Craft Coordinator ID - WIN Gee Performing Organization Address [facility]/Zipcode Phone Number [address] [address] [place] Rapid drug screen, urine (03/11/2020 2:45 AM CDT) Pathologist Sig nature Barbiturate Screen Negative Negative [facility] Benzodiazepine Screen Negative Negative [facility] Cocaine (Metab.) Screen Negative Negative [facility] Methadone Screen Negative Negative [facility] Opiate Screen Negative Negative [facility] Cannabinoid Screen Negative Negative [facility] Amph/Methamph Screen Negative Negative [facility] Phencyclidine Screen Negative Negative [facility] pH, UA 6.0 5.0 - 8.0 [facility] Specimen Urine Narrative Performed At [facility] Cocaine 300 ng/mL Cannabinoid 50 ng/mL Benzodiazepine 200 ng/mL Barbiturate 200 ng/mL Phencyclidine 25 ng/mL Opiate 300 ng/mL Methadone 300 ng/mL Amphetamine/ 1000 ng/mL Methamphetamine This assay provides an unconfirmed qualitative test result for the clinical management of patients in emergency situations. Chain of custody not maintained. Some [id number]-kjm-[id number] medications, as well as adulterants, may cause inaccurate results. Clinical correlation should be applied. A more comprehensive drug screen or confirmation of a detected drug may be performed upon request. Craft Coordinator ID Reymundo Gee Performing Organization Address City/[facility]/Zipcode Phone Number [address] [address] [place] Sodium, random urine (03/11/2020 2:45 AM CDT) Pathologist Sig nature Sodium Urine 91 meq/L [facility] [place] ICAL [place] Specimen Urine Narrative Performed At Reference Range: No Normals [facility] Craft Coordinator ID Reymundo Gee Performing Organization Address [facility]/Zipcode Phone Number [address] [address] [place] Creatinine, random urine (03/11/2020 2:45 AM CDT) Pathologist Sig nature Creatinine, Ur 47.2 mg/dL [facility] [place] Specimen Urine Narrative Performed At Reference Range: No Normals [facility] Craft Coordinator ID Reymundo Gee Performing Organization Address [facility] Phone Number [address] [address] [place] Urinalysis w/Microscopic + Reflex to Culture (03/11/2020 2:44 AM CDT) Color, UA Yellow [facility] Clarity, UA Clear [facility] Specific [place], 1.018 1.001 - 1.035 [facility] pH, UA 6.0 5.0 - 8.0 [facility] Protein, UA Negative Negative [facility] Glucose, UA Negative Negative [facility] Ketones, UA 10 mg/dL (A) Negative [facility] Bilirubin, UA Negative Negative [facility] Blood, UA Negative Negative [facility] Nitrite, UA Negative Negative [facility] Leukocytes, UA Negative Negative [facility] Urobilinogen, UA 0.2 0.2 - 1.0 mg/dL [facility] RBC, UA 0 /HPF [facility] WBC, UA 1 /HPF [facility] Mucus Rare [facility] Hyaline Casts, UA 1 /LPF [facility] Amorphous Crystals Rare [facility] Specimen Source [facility] Specimen Urine Narrative Performed At Craft Coordinator ID - [auto] [facility] Craft Coordinator ID - tech Performing Organization Address City/[facility]/Zipcode Phone Number [address] [address] [place] Osmolality, urine (03/11/2020 2:44 AM CDT) Pathologist Sig nature Osmolality, Ur 630 50-1,200 mOsm/kg [facility] mOsm/kg [facility] Specimen Urine Performing Organization Address City/[facility] Phone Number [address] [address] [place] Lactic acid, venous (03/10/2020 9:05 PM CDT)Only the most recent of2 results within the time period is included. Lactate, Venous 1.31Comment: 0.50 - 2.20 [facility] Specimen slightly mmol/L [facility] hemolyzed [place] Specimen Blood Narrative Performed At Craft Coordinator ID - DB [facility] Specimen slightly icteric Performing Organization Address City/[facility]/Zipcode Phone Number [address] [address] [place] Blood Culture - Routine (Right Venipuncture) (03/10/2020 2:42 PM CDT)Only the most recent of2 resultswithin the time period is included. Pathologist Sig nature Result No growth in 5 days [facility] Specimen Blood - Entire right upper arm (body str ucture) Performing Organization Address City/State/Zipcode Phone Number [facility] [address] [place] [address] CENTER SARS-CoV2/RT-PCR (Asymptomatic ONLY) (03/10/2020 2:27 PM CDT) SARS-COV2/RT-PCR Negative Not Detected, ROSH[facility] TYLER Negative, See [facility] external report CENTER for linked test SARS-COV-2 [facility] GONZALO [facility] PERFORMING LAB [facility] Specimen Other - Nasopharyngeal wall structure (b kala structure) Narrative Performed At Negative result for this test determines that [facility] SARS-CoV-2 RNA was not present in the specimen above the Limit of Detection (LOD). However, Negative results do not preclude SARS-CoV-2 infection and should not be used as the sole basis for treatment or patient management decisions. Negative results must be combined with clinical observations, patient history, and epidemiological information. A false negative result may occur if a specimen is improperly collected, transported or handled. A false negative result should be considered if patient's recent exposures or clinical presentation indicate that COVID-19 (SARS-CoV-2) is likely and diagnostic tests for other causes of illness are negative. Re-testing should be considered in cases of suspected false negatives. The limit of detection for this assay is 800 copies/mL. This SARS CoV-2 test is a real-time RT-PCR test intended for the qualitative detection of nucleic acid from SARS-CoV-2 in a nasopharyngeal swab specimen collected from individuals suspected of COVID-19 by their healthcare provider. This test has not been Food and Drug Administration (FDA) cleared or approved. This is a modified version of an approved Emergency Use Authorization (EUA) and is in the process of review by the FDA. Once authorized by the FDA, the issued EUA will be effective until the declaration that circumstances exist justifying the authorization of the emergency use of in vitro diagnostic tests for detection and/or diagnosis of COVID-19 is terminated under Section 564(b)(2) of the Act or the EUA is revoked under Section 564(g) of the Act. Fact Sheet for Healthcare Providers: https://www.quidel.com/sites/default/files/pro duct/documents/Fact_Sheet_HC_Providers_Lyra_SA RS-CoV-2.pdf Fact Sheet for Healthcare Patients: https://www.CardSpring/sites/default/files/pro duct/documents/Fact_Sheet_Patients_Lyra_SARS-C oV-2.pdf Performing Laboratory: [address] [address] Performing Organization Address [facility] Phone Number [address] [phone] [place] Calcium, Ionized (03/10/2020 2:19 PM CDT) Pathologist Sig nature Calcium, Ion 1.05 (L) 1.12 - 1.27 mmol/L [facility] pH, Blood 7.33 [facility] Specimen Blood Performing Organization Address [facility] Number [address] [address] [place] Procalcitonin (03/10/2020 2:16 PM CDT) Pathologist Sig nature Procalcitonin 1.40 (H) <0.05 ng/mL [facility] Specimen Blood Narrative Performed At SEPSIS RISK (ng/mL) [facility] Low: 0.05-0.50 Intermediate: 0.51-2.00 High: >=2.01 Performing Organization Address [facility] Number [address] [address] CENTER Cortisol (03/10/2020 2:16 PM CDT) Pathologist Sig nature Cortisol, Total 58.2 (H) 3.7 - 19.4 ug/dL [facility] Specimen Blood Narrative Performed At Craft Coordinator NEAL Barfield [facility] Performing Organization Address [facility] Phone Number [address], [place] [phone] CENTER TSH/Free T4 If Indicated (03/10/2020 2:16 PM CDT) Pathologist Sig nature TSH 0.299 (L) 0.350 - 4.940 uIU/mL [facility] Specimen Blood Narrative Performed At Craft Coordinator ID - ALIDA B [facility] Performing Organization Address City/[facility] Phone Number [address] [address] CENTER PT/aPTT (03/10/2020 2:16 PM CDT) Pathologist Sig nature Protime 18.0 (H) 11.9 - 14.2 seconds [facility] INR 1.53 <=5.90 [facility] PTT 32.1 22.5 - 36.0 seconds [facility] Specimen Blood Narrative Performed At Effective 12/09/2018: PT Reference Range [facility] Change New: 11.9-14.2 Previous: 11.7-14.7 RECOMMENDED COUMADIN/WARFARIN INR THERAPY RANGES STANDARD DOSE: 2.0-3.0 Includes: PROPHYLAXIS for venous thrombosis, systemic embolization; TREATMENT for venous thrombosis and/or pulmonary embolus. HIGH RISK: Target INR is 2.5-3.5 for patients wiht mechanical heart valves. Performing Organization Address City/[facility] Phone Number [address] [address] CENTER Troponin I (03/10/2020 2:16 PM CDT) Pathologist Sig nature Troponin I 0.04 (H) 0.00 - 0.03 ng/mL [facility] Specimen Blood Narrative Performed At Troponin I (TnI) levels must be interpreted [facility] in the context of the presenting symptoms and the clinical findings. Elevated TnI levels indicate myocardial damage, but are not specific for ischemic heart disease. Elevated TnI levels are seen in patients with other cardiac conditions (including myocarditis and congestive heart failure), and slight TnI elevations occur in patients with other conditions, including sepsis, renal failure, acidosis, acute neurological disease, and persistent tachyarrhythmia. Craft Coordinator ID - JOHN Barfield Performing Organization Address City/[facility] Phone Number [address] [address] CENTER Hepatitis panel, acute (03/10/2020 2:16 PM CDT) Pathologist Sig nature Hep A IgM Nonreactive Nonreactive [facility] Hep B C IgM Nonreactive Nonreactive [facility] Hepatitis C Ab Nonreactive Nonreactive [facility] HBsAg Screen Nonreactive Nonreactive [facility] Specimen Blood Narrative Performed At Craft Coordinator ID - DB [facility] Performing Organization Address [facility] Phone Number [address] [address] [place] Fibrinogen (03/10/2020 2:16 PM CDT) Pathologist Sig nature Fibrinogen 115 (L) 225 - 434 mg/dl [facility] Specimen Blood Performing Organization Address [facility] Phone Number [address] [address] CENTER Triglycerides (03/10/2020 2:16 PM CDT) Pathologist Sig nature Triglycerides 220 mg/dL [facility] Specimen Blood Narrative Performed At TRIGLYCERIDE REFERENCE RANGE [facility] Low Risk <150 Borderline Risk 150-199 High Risk 200-499 Very High Risk >=500 Craft Coordinator ID - JOHN Barfield Specimen slightly icteric Performing Organization Address [facility] Phone Number [address] [address] CENTER T4, free (03/10/2020 2:16 PM CDT) Pathologist Sig nature Free T4 1.00 0.70 - 1.48 ng/dL [facility] Specimen Blood Narrative Performed At Craft Coordinator ID - DB [facility] Performing Organization Address [facility] Phone Number [address] [address] [place] Osmolality, serum (03/10/2020 2:16 PM CDT) Pathologist Sig nature Osmolality Serum 287 275 - 295 mOsm/kg [facility] Specimen Blood Performing Organization Address [facility] Phone Number [address] [address] CENTER B-type Natriuretic Factor (BNP) (03/10/2020 2:16 PM CDT) Pathologist Sig nature BNP 154 (H) 0 - 100 pg/mL [facility] Specimen Blood Narrative Performed At Craft Coordinator ID - JOHN C [facility] Performing Organization Address [facility] Phone Number [address] [address] CENTER Lipase (03/10/2020 2:16 PM CDT) Pathologist Sig nature Lipase 689 (H) 8 - 78 U/L [facility] Specimen Blood Narrative Performed At Craft Coordinator ID - JOHN C [facility] Specimen slightly icteric Performing Organization Address [facility] Phone Number [address] [address] CENTER Blood gas, venous (03/10/2020 2:16 PM CDT) Pathologist Sig nature pH, Rito 7.33 7.32 - 7.42 [facility] pCO2, Rito 44 41 - 51 mmHg [facility] pO2, Rito 30 25 - 40 mmHg [facility] O2 Sat, Rito 52.3 40.0 - 70.0 % [facility] HCO3, Rito 23 21 - 29 mmol/L [facility] Base Excess, Rito -3.3 (L) -2.0 - 3.0 [facility] mmol/L [facility] Patient Temperature 37.0 C [facility] FIO2 21.0 % [facility] Specimen Blood Performing Organization Address City/State/Zipcode Phone Number [address] [phone] CENTER Amylase (03/10/2020 2:16 PM CDT) Pathologist Sig nature Amylase 397 (H) 25 - 125 U/L [facility] Specimen Blood Narrative Performed At Craft Coordinator ID - JOHN C [facility] Specimen slightly icteric Performing Organization Address City/[facility]/Zipcode Phone Number [address] [phone] CENTER Ammonia (03/10/2020 2:16 PM CDT) Pathologist Sig nature Ammonia 40Comment: Specimen 18 - 72 mol/L [facility] slightly hemolyzed [facility] Specimen Blood Narrative Performed At Craft Coordinator ID - JOHN C [facility] Performing Organization Address City/State/Zipcode Phone Number [facility] [address], [place] [phone] CENTER after 05/29/2019 Insurance Payer Benefit Plan / Subscriber ID Effective Dates Phone Addre ss Type Group MEDICARE MEDICARE A B [id number] 2015-Present Medicare CDC REVIEW CDC REVIEW [id number] 2020-[place] [address]
[2020-05-29 11:38] LABS: Albumin 3.7 g/dL (3.4-5.0); Bilirubin Direct 1.1 mg/dL (0-0.2); Bilirubin Total 2.1 mg/dL (0.2-1.0); Potassium 3.6 mmol/L (3.5-5.1); Protein, Total 6.9 g/dL (6.4-8.2)
--- OUTSIDE RECORDS SUMMARY | 2020-05-29 11:39 | XMS REPORT | Continuity of Care Document ---
:1950 Author Organization [facility] t Address Formerly [facility] [place] [address] Care Team Providers Name Role Phone FER MINOR Attending Clinician Unavailable Odilia Rubin MD, Fer Attending Clinician [phone] Paola Ramírez MD Attending Clinician [phone] PAOLA RAMÍREZ Admitting Clinician Unavailable Payers Payer Name Policy Type Policy Effective Date Expiration Date Sour ce Number MEDICAREMEDICARE A [id number] 2015 [facility] [id number] 2014-P 00:00:00 - Medical resentMedicare Center CDC REVIEWCDC [id number] [address] [facility] [id number] 00:00:00 - [address] [address] Problems Condition Condition Condition Status Onset Resolution Last Treating Co mments Source Name Details Category Date Date Treatment Clinician Date 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 [facility] duced duced 03-10 [facility] acute acute 00:00: Medical pancreatit pancreatit 00 Ce nter is is Acute Acute Disease Active [facility] kidney kidney 03-10 [facility] injury injury [facility] Center Hyponatrem Hyponatrem Disease Active [facility] ia ia 03-10 [facility] Recurrent Recurrent Problem Active [facility]TI [facility] Imbalance Imbalance Problem [facility] Dizziness Dizziness Problem [facility] Loss of Loss of Problem Active [facility] appetite appetite [facility] Weight Weight Problem Active [facility] loss loss [facility] Abnormal Abnormal Problem Active [facility] erythrocyt erythrocyt Yareli kes - e indices e indices Eliazar gennaro l [facility] Elevated Elevated Problem Active [facility] BP without BP without Yareli kes - diagnosis diagnosis Eliazar gennaro of of l hypertensi hypertensi Ou tpati on on ent Clinics Leukopenia Leukopenia Problem Active [facility] , , [facility] - unspecifie unspecifie Me moria d type d type l [facility] Alcoholism Alcoholism Problem Active [facility] Electrolyt Electrolyt Problem Active [facility] e e [facility] - imbalance imbalance Eliazar gennaro l [facility] GERD GERD Problem Active [facility] without without [facility] - esophagiti esophagiti Me moria s s l [facility] History of History of Problem Active [facility] migraine migraine kes - Memoria l [facility] Asthma Asthma Problem Active [facility] Abnormal Abnormal Problem Active [facility] laboratory laboratory Yareli kes - test test Memoria result result l [facility] Fatigue, Fatigue, Problem Active [facility] unspecifie unspecifie Yareli kes - d type d type Memoria l [facility] Anemia, Anemia, Problem Active [facility] unspecifie unspecifie Yareli kes - d type d type Memoria l [facility] 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 Luke s - of liver of liver Memori a without without l ascites ascites [facility] Elevated Elevated Problem Active [facility] liver liver [facility] - enzymes enzymes Memoria l [facility] Hepatomega Hepatomega Problem Active [facility] ly ly [facility] Pancytopen Pancytopen Problem Active [facility] ia ia [facility] Renal mass Renal mass Problem Active [facility] Vitamin D Vitamin D Problem Active [facility] deficiency deficiency Yareli kes - [facility]oria [facility]ics Fatty Fatty Problem Active [facility] liver liver [facility] Right Right Problem Active [facility] wrist pain wrist pain Yareli kes - Memoria l [facility] Dysphagia, Dysphagia, Problem Active [facility] unspecifie unspecifie Yareli kes - d type d type [facility] l [facility]ics Depression Depression Problem Active [facility] screening screening [facility] - Memoria l [facility]ics Subcutaneo Subcutaneo Problem Active [facility] us mass of us mass of Yareli kes - neck neck Memoria l [facility] Abnormal Abnormal Problem Active [facility] thyroid thyroid [facility] - function function Memori a test test l [facility] Abnormal Abnormal Problem Active [facility] thyroid thyroid [facility] - ultrasound ultrasound Me moria l [facility] Pain in Pain in Problem Active [facility] left left [facility] - axilla axilla Memoria l [facility] Pain in Pain in Problem Active [facility] right leg right leg Luke [facility] - [facility]oria l [facility] Pain of Pain of Problem Active [facility] left leg left leg [facility] Pain in Pain in Problem Active [facility] right right [facility] - axilla axilla Memoria l [facility] Alcohol-in 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 [facility] duced duced [facility] - acute acute Memoria pancreatit pancreatit l is, is, Outpati unspecifie unspecifie en t d d Clinics complicati complicati on status on status Alcohol Alcohol Problem Active [facility] abuse abuse [facility] 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 Yareli kes - mike mike Memoria malnutriti malnutriti l on on [facility] Gastroesop Gastroesop Problem Active [facility] hageal hageal [facility] - reflux reflux Memoria disease disease l with with Outpati esophagiti esophagiti en t s s Clinics Hypomagnes Hypomagnes Problem Active [facility] emia emia [facility] Hiatal Hiatal Problem Active [facility] hernia hernia [facility] Gastritis Gastritis Problem Active [facility] [...] St presence presence [facility] bleeding bleeding l unspecifie unspecifie Ou tpati d, d, ent unspecifie unspecifie Cl inics d d chronicity chronicity , , unspecifie unspecifie d d gastritis gastritis type type Allergies, Adverse Reactions, Alerts Allergy Allergy Status Severity Reaction(s) Onset Inactive Treating Comm ents Source Name Type Date Date Clinician Hydrocod Drug Active [facility] one-Acet Allergy 03-10 [facility] - aminophe 00:[facility]: [facility] Center Imitrex Adverse Active Info Not [facility] Reaction Available [facility] [place] Adverse Active Info Not [facility] Reaction Available [facility] Social History Social Habit Start Date Stop Date Quantity Comments Source Sex Assigned At [facility] Medications Ordered Filled Start Stop Current Ordering Indication Dosage Frequency Signature Comments Components Source Medication Medication Date Date Medication? Clinician (SIG) Name Name Cefdinir Cefdinir Carin as [facility] 02-27 Maddison directed [facility] - 00:00: 00:00 Memoria 00 :00 [facility] Vital Signs Vital Name Observation Time Observation Value Comments Source Systolic blood 2020-03-14 12:22:00 138 mm[Hg] [facility] Diastolic blood 2020-03-14 12:22:00 63 mm[Hg] [facility] S [facility] Heart rate 2020-03-14 12:22:00 77 /min [facility] Body temperature 2020-03-14 12:22:00 36.17 Stella [facility] Respiratory rate 2020-03-14 12:22:00 18 /min [facility] Oxygen saturation in 2020-03-14 12:22:00 99 /min [facility] Arterial blood by Medical Ce nter Pulse oximetry Body weight 2020-03-10 14:00:00 59.9 kg [facility] Procedures Procedure Date / Time Performed Performing Clinician Dewayne rhodes POCT-GLUCOSE METER 2020-03-14 12:24:00 Sarai Ramírez [facility] POCT-GLUCOSE METER 2020-03-14 05:37:00 [facility] COMPREHENSIVE METABOLIC 2020-03-14 05:26:00 Madi [facility]cleod [facility] MAGNESIUM 2020-03-14 05:26:00 Madi Mcleod [facility] PHOSPHORUS 2020-03-14 05:26:00 Madi Mcleod [facility] CBC W/PLT COUNT & AUTO 2020-03-14 05:26:00 Madi Mcleod [facility] S t [facility] POCT-GLUCOSE METER 2020-03-13 23:47:00 [facility] POCT-GLUCOSE METER 2020-03-13 14:07:00 [facility] POCT-GLUCOSE METER 2020-03-13 12:28:00 [facility] COMPREHENSIVE METABOLIC 2020-03-13 07:33:00 Madi Mcleod [facility] MAGNESIUM 2020-03-13 07:33:00 ShaniMadi [facility] PHOSPHORUS 2020-03-13 07:33:00 Madi Mcleod [facility] POCT-GLUCOSE METER 2020-03-13 07:24:00 [facility] POCT-GLUCOSE METER 2020-03-13 06:52:00 [facility] W/PLT COUNT & AUTO 2020-03-13 05:56:00 ShaniMadi [facility] S t [facility] POCT-GLUCOSE METER 2020-03-12 16:01:00 [facility] POCT-GLUCOSE METER 2020-03-12 12:56:00 [facility] POTASSIUM 2020-03-12 12:11:00 [facility] POCT-GLUCOSE METER 2020-03-12 08:41:00 Gadghassan [facility] COMPREHENSIVE METABOLIC 2020-03-12 03:12:00 [facility] 2020-03-12 03:12:00 Madi Mcleod [facility] PHOSPHORUS 2020-03-12 03:12:00 [facility] W/PLT COUNT & AUTO 2020-03-12 03:12:[facility] POCT-GLUCOSE METER 2020-03-11 19:41:00 [facility] POCT-GLUCOSE METER 2020-03-11 17:59:00 [facility] POCT-GLUCOSE METER 2020-03-11 12:18:00 [facility] PO[facility]UCOSE METER 2020-03-11 05:34:00 Odiila Rubin [facility] COMPREHENSIVE METABOLIC 2020-03-11 04:42:00 Madi Mcleod [facility] MAGNESIUM 2020-03-11 04:42:00 [facility] PHOSPHORUS 2020-03-11 04:42:00 Shani [facility] CBC W/PLT COUNT & AUTO 2020-03-11 04:42:00 ShaniMadi [facility] S t [facility] DIFFERENTIAL [facility] RAPID DRUG SCREEN, URINE 2020-03-11 02:45:00 [facility] SODIUM, RANDOM URINE 2020-03-11 02:45:00 [facility] CREATININE, RANDOM URINE 2020-03-11 02:45:00 [facility] UREA NITROGEN, RANDOM 2020-03-11 02:45:00 [facility] URINALYSIS W/ REFLEX 2020-03-11 02:44:[address] [facility] - URINE CULTURE [facility] OSMOLALITY, URINE 2020-03-11 02:44:00 [facility] POCT-GLUCOSE METER 2020-03-11 00:48:00 [facility] LACTIC ACID, VENOUS 2020-03-10 21:05:00 Shani, [facility] POCT-GLUCOSE METER 2020-03-10 17:59:00 [facility] BLOOD [facility]URE 2020-03-10 14:42:00 Shani [facility] SARS-COV2/RT-PCR ([facility] & 2020-03-10 14:27:[address] [facility] - REF LABS) [facility] CALCIUM, IONIZED 2020-03-10 14:19:[address] [facility] s [facility] BLOOD CULTURE 2020-03-10 14:16:00 Shani [facility] COMPREHENSIVE METABOLIC 2020-03-10 14:16:00 [facility] PANEL [facility] MAGNESIUM 2020-03-10 14:16:00 Shani [facility] PHOSPHORUS 2020-03-10 14:16:00 Shani [facility] B-TYPE NATRIURETIC FACTOR 2020-03-10 14:16:00 Madi Mcleod I [facility] - (BNP) [facility] LIPASE 2020-03-10 14:16:00 Shani [facility] AMYLASE 2020-03-10 14:16:00 Shani [facility] TRIGLYCERIDES 2020-03-10 14:16:00 Shani [facility] PT/APTT 2020-03-10 14:[facility] 2020-03-10 14:16:00 [facility] BLOOD GAS, VENOUS 2020-03-10 14:16:00 [facility] AMMONIA 2020-03-10 14:16:00 [facility] TROPONIN I 2020-03-10 14:16:00 [facility] HEPATITIS PANEL, ACUTE 2020-03-10 14:16:00 [facility] LACTIC ACID, VENOUS 2020-03-10 14:16:00 [facility] PROCALCITONIN 2020-03-10 14:16:00 [facility] OSMOLALITY, SERUM 2020-03-10 14:16:00 [facility] TSH/FREE T4 IF INDICATED 2020-03-10 14:16:00 [facility] CORTISOL 2020-03-10 14:16:00 [facility] T4, FREE 2020-03-10 14:16:00 [facility] CBC W/PLT COUNT & AUTO 2020-03-10 14:16:00 [facility] Plan of Care Planned Activity Planned Date Details Comments Source Future Scheduled 2020-03-14 INFLUENZA VACCINE (#1) [facility] 00:00:00 [code = INFLUENZA Medical Ce nter VACCINE (#1)] Future Scheduled 2016-01-[address] [facility] - Test 00:00:00 WELLNESS (YEAR 2 or Medical Center FIRST YEAR if no IPPE) [code = MEDICARE ANNUAL WELLNESS (YEAR 2 or FIRST YEAR if no IPPE)] Future Scheduled 2015 PNEUMOCOCCAL 65+ YRS [facility] - Test 00:00:00 (1 of 1 - Medical Center [id number]) [code = PNEUMOCOCCAL 65+ YRS (1 of 1 - [id number] PCV13)] Future Scheduled [address] [facility] - Test 00:00:00 malignant neoplasm of Medica l Center breast (procedure) [code = 163834972] Future Scheduled [address] [facility] - Test 00:00:00 [facility]) [code = 075119028] Encounters Start End Encounter Admission Attending Care Care Encounter Source Date/Time Date/Time Type Type Clinicians Facility Department ID 2020-02-28 2020-02-28 Outpatient Yanni Liaot [id number] [facility] 09:52:00 09:52:00 t Specialty/U Yareli kes - Specialty rology Memori a /Urology Clinic l Clinic Outpati ent Clinics 2020-02-25 2020-02-25 Outpatient Yanni Liaot [id number] 11:00:00 11:00:00 t Specialty/U Yareli kes - Specialty rology Memori a /Urology Clinic l Clinic Outpati ent Clinics 2019-12-29 2019-12-29 [place] [id number] 10:02:00 10:02:00 t Specialty/U Yareli kes - Specialty rology Memori a /Urology Clinic l Clinic Outpati ent Clinics 2019-12-29 2019-12-29 [place] [id number] 10:02:00 10:02:00 t Specialty/U Yareli kes - Specialty rology Memori a /Urology Clinic l Clinic Outpati ent Clinics 2019-12-13 2019-12-13 [place] [id number] 11:00:00 11:00:00 t Specialty/U Yareli kes - Specialty rology Memori a /Urology Clinic l Clinic Outpati ent Clinics 2019-12-13 2019-12-13 [place] [place] [id number] 08:52:00 08:52:00 t Specialty/U Yareli kes - Specialty rology Memori a /Urology Clinic l Clinic Outpati ent Clinics 2019-10-14 2019-10-14 [place] [id number] 11:03:00 11:03:00 t Specialty/U Yareli kes - Specialty rology Memori a /Urology Clinic l Clinic Outpati ent Clinics 2019-10-12 2019-10-12 [place] [facility] [id number] 13:32:00 13:32:00 t Specialty/U Yareli kes - Specialty rology Memori a /Urology Clinic l Clinic Outpati ent Clinics 2019-08-30 2019-08-30 [facility] [id number] 11:46:00 11:46:00 t [facility] Medicine Outpati ent Clinics 2019-08-22 2019-08-22 [facility] [id number] [facility] 12:35:00 12:35:00 t [facility] Medicine Outpati ent Clinics 2019-08-18 2019-08-18 [facility] [id number] 10:45:00 10:45:00 t [facility] Medicine Outpati ent Clinics 2019-06-21 2019-06-21 [facility] [id number] 10:00:00 10:00:00 t Specialty/U Yareli kes - Specialty rology Memori a /Urology Clinic l Clinic Outpati ent Clinics 2019-06-01 2019-06-01 [facility] [id number] 10:00:00 10:00:00 t [facility] Medicine Outpati ent Clinics 2019-05-18 2019-05-18 [facility] [id number] 10:40:00 10:40:00 t [facility] Medicine Outpati ent Clinics 2019-04-19 2019-04-19 [facility] [id number] 23:36:00 23:36:00 t [facility] Medicine Outpati ent Clinics 2019-04-03 2019-04-03 [facility] [id number] 04:57:00 04:57:00 t [facility] Medicine Outpati ent Clinics 2019-03-17 2019-03-17 [facility] [id number] [facility] 21:43:00 21:43:00 t [facility] Medicine Outpati ent Clinics 2019-03-17 2019-03-17 [facility] [id number] 10:40:00 10:40:00 t [facility] Medicine Outpati ent Clinics 2019-03-08 2019-03-08 [facility] [id number] 15:04:00 15:04:00 t [facility] Medicine Outpati ent Clinics 2019-03-01 2019-03-01 [facility] [id number] 20:32:00 20:32:00 t [facility] Medicine Outpati ent Clinics 2019-02-26 2019-02-26 [facility] [id number] 16:08:00 16:08:00 t [facility] Medicine Outpati ent Clinics 2019-02-22 2019-02-22 [facility] [id number] 08:19:00 08:19:00 t [facility] Medicine Outpati ent Clinics 2019-02-15 2019-02-15 [facility] [id number] 09:20:00 09:20:00 t [facility] Medicine Outpati ent Clinics 2019-01-18 2019-01-18 [facility] [id number] 10:00:00 10:00:00 t Specialty/U Yareli kes - Specialty rology Memori a /Urology Clinic l Clinic Outpati ent Clinics 2018-09-02 2018-09-02 [facility] [id number] 10:45:00 10:45:00 t [facility] Medicine Outpati ent Clinics 2018-07-21 2018-07-21 [facility] [id number] [facility] 09:30:00 09:30:00 t Specialty/U Yareli kes - Specialty rology Memori a /Urology Clinic l Clinic Outpati ent Clinics 2018-03-11 2018-03-11 [facility] [id number] 09:30:00 09:30:00 t Specialty/U Yareli kes - Specialty rology Memori a /Urology Clinic l Clinic Outpati ent Clinics 2018-02-19 2018-02-19 [facility] [id number] 09:00:00 09:00:00 t Specialty/U Yareli kes - Specialty rology Memori a /Urology Clinic l Clinic Outpati ent Clinics 2018-01-16 2018-01-16 [facility] [id number] 15:30:00 15:30:00 t Specialty/U Yareli kes - Specialty rology Memori a /Urology Clinic l Clinic Outpati ent Clinics 2017-12-25 2017-12-25 [facility] [id number] 10:38:00 10:38:00 t Specialty/U Yareli kes - Specialty rology Memori a /Urology Clinic l Clinic Outpati ent Clinics 2017-12-24 2017-12-24 [facility] [id number] 09:52:00 09:52:00 t Specialty/U Yareli kes - Specialty rology Memori a /Urology Clinic l Clinic Outpati ent Clinics 2017-12-11 2017-12-11 [facility] [id number] 09:30:00 09:30:00 t Specialty/U Yareli kes - Specialty rology Memori a /Urology Clinic l Clinic Outpati ent Clinics 2017-12-09 2017-12-09 [facility] [id number] 09:35:00 09:35:00 t Specialty/U Yareli kes - Specialty rology Memori a /Urology Clinic l Clinic Outpati ent Clinics 2017-11-20 2017-11-20 [facility] [id number] 09:00:00 09:00:00 t Specialty/U Yareli kes - Specialty rology Memori a /Urology Clinic l Clinic Outpati ent Clinics 2017-11-06 2017-11-06 [facility] [id number] 10:05:00 10:05:00 t Specialty/U Yareli kes - Specialty rology Memori a /Urology Clinic l Clinic Outpati ent Clinics 2017-11-06 2017-11-06 [place] [id number] 09:12:00 09:12:00 t Specialty/U Yareli kes - Specialty rology [facility] a /Urology Clinic l Clinic Outpati ent Clinics 2017-11-04 2017-11-04 [place] [id number] 09:45:00 09:45:00 t Specialty/U Yareli kes - Specialty rology [facility] a /Urology Clinic l Clinic Outpati ent Clinics 2017-10-20 2017-10-20 [place] [id number] 08:45:00 08:45:00 t [facility] Results Test Description Test Time Test Comments Results Result Comments Source Blood Culture - Routine (Right Venipuncture) 2020-03-15 17:0 0:00 Test Item Value Reference Range Interpretation Comme nts Result (test code = 6463-4) No [facility] in 5 days [id number]:00 Test Item Value Reference Range Interpretation Comments CULTURE (BEAKER) (test No growth in 5 days code = 1095) BLOOD [id number] 15:00:00 Test Item Value Reference Range Interpretation Comments CULTURE (BEAKER) (test No growth in 5 days code = 1095) POC-Glucose [id number] 12:35:00 Test Item Value Reference Range Interpretation Comments POC-Glucose Meter (test 103 mg/dL 70-110 : TE STED AT [facility] code = 1538) [address] [facility], 770 30: Tape Duplicator/Techni benjamin ID = [id number] for EMILY SOLITARIO Lab Interpretation (test Normal code = 87179-9) [facility] [id number] 12:35:00 Test Item Value Reference Range Interpretation Comments POC-GLUCOSE METER 103 mg/dL 70-110 : TESTED A T [facility] 6720 (BEAKER) (test code = SHABBIR Jiménez [facility], 1538) 22491: Tape Duplicator/Techni benjamin ID = [id number] for EMILY EATON CBC with platelet count + automated [id number] 06:54:00 Test Item Value Reference Range Interpretation Comments WBC (test code = 6690-2) 3.5 3.5- 10.5 K/L RBC (test code = 789-8) 2.79 3.93- 5.22 M/L L MCHC (test code = 786-4) 36.0 32.2- 35.5 GM/DL H Hematocrit (test code = 4544-3) 29.2 % 34.1-44.9 L MCV (test code = 787-2) 104.7 fL 79.4-94.8 H MCH (test code = 785-6) 37.6 pg 25.6-32.2 H RDW (test code = 788-0) 14.8 % 11.7-14.4 H Platelets (test code = 777-3) 80 150- 450 K/CU MM L MPV (test code = 28330-5) 10.5 fL 9.4-12.3 nRBC (test code = 413) 0 0- 0 /100 WBC % Neutros (test code = 429) 56 % % Lymphs (test code = 430) 12 % % Monos (test code = 431) 28 % % Eos (test code = 432) 2 % % Baso (test code = 437) 0 % # Neutros (test code = 670) 1.92 1.56- 6.13 K/L # Lymphs (test code = 414) 0.43 1.18- 3.74 K/L L # Monos (test code = 415) 0.98 0.24- 0.36 K/L H # Eos (test code = 416) 0.07 0.04- 0.36 K/L # Baso (test code = 417) 0.01 0.01- 0.08 K/L Immature Granulocytes-Relative 1 % 0-1 (test code = 2801) Lab Interpretation (test code = Abnormal 11724-8) [facility] W/PLT COUNT & AUTO [id number] 06:54:00 Test Item Value Reference Range Interpretation Comments WHITE BLOOD CELL COUNT (BEAKER) 3.5 K/ L 3.5-10.5 (test code = 775) RED BLOOD CELL COUNT (BEAKER) 2.79 M/ L 3.93-5.22 L (test code = 761) HEMOGLOBIN (BEAKER) (test code = 10.5 GM/DL 11.2-15.7 L 410) HEMATOCRIT (BEAKER) (test code = 29.2 % 34.1-44.9 L 411) MEAN CORPUSCULAR VOLUME (BEAKER) 104.7 fL 79.4-94.8 H (test code = 753) MEAN CORPUSCULAR HEMOGLOBIN 37.6 pg 25.6-32.2 H (BEAKER) (test code = 751) MEAN CORPUSCULAR HEMOGLOBIN CONC 36.0 GM/DL 32.2-35.5 H (BEAKER) (test code = 752) RED CELL DISTRIBUTION WIDTH 14.8 % 11.7-14.4 H (BEAKER) (test code = 412) PLATELET COUNT (BEAKER) (test code 80 K/CU MM 150-450 L = 756) MEAN PLATELET VOLUME (BEAKER) 10.5 fL 9.4-12.3 (test code = 754) NUCLEATED RED BLOOD CELLS (BEAKER) 0 /100 WBC 0-0 (test code = 413) NEUTROPHILS RELATIVE PERCENT 56 % (BEAKER) (test code = 429) LYMPHOCYTES RELATIVE PERCENT 12 % (BEAKER) (test code = 430) MONOCYTES RELATIVE PERCENT 28 % (BEAKER) (test code = 431) EOSINOPHILS RELATIVE PERCENT 2 % (BEAKER) (test code = 432) BASOPHILS RELATIVE PERCENT 0 % (BEAKER) (test code = 437) NEUTROPHILS ABSOLUTE COUNT 1.92 K/ L 1.56-6.13 (BEAKER) (test code = 670) LYMPHOCYTES ABSOLUTE COUNT 0.43 K/ L 1.18-3.74 L (BEAKER) (test code = 414) MONOCYTES ABSOLUTE COUNT (BEAKER) 0.98 K/ L 0.24-0.36 H (test code = 415) EOSINOPHILS ABSOLUTE COUNT 0.07 K/ L 0.04-0.36 (BEAKER) (test code = 416) BASOPHILS ABSOLUTE COUNT (BEAKER) 0.01 K/ L 0.01-0.08 (test code = 417) IMMATURE GRANULOCYTES-RELATIVE 1 % 0-1 PERCENT (BEAKER) (test code = 2801) Comprehensive metabolic [id number] 06:45:00 Test Item Value Reference Range Interpretation Comments Protein, Total (test 5.1 6.0- 8.3 gm/dL L code = 2885-2) Albumin (test code = 3.0 g/dL 3.5-5 L 79889-3) Alkaline Phosphatase 128 U/L 40-150 (test code = 6768-6) Total Bilirubin (test 2.5 mg/dL 0.2-1.2 H code = 1975-2) Sodium (test code = 132 meq/L 136-145 L 2951-2) Potassium (test code = 2.5 meq/L 3.5-5.1 LL 2823-3) Chloride (test code = 98 meq/L 98-107 2075-0) CO2 (test code = 21 meq/L 22-29 L 2028-9) BUN (test code = 10 mg/dL 7-21 3094-0) Creatinine (test code 0.55 mg/dL 0.57-1.25 L = 2160-0) Glucose (test code = 89 mg/dL 70-105 2345-7) Calcium (test code = 7.6 mg/dL 8.4-10.2 L 71269-8) AST (test code = 75 U/L 5-34 H 1920-8) ALT (test code = 64 U/L 6-55 H 1742-6) EGFR (test code = 109 mL/min/1.73 [place] [address]-9) NOT ACCURATE CREATININE CLEARANCE IN PREDICTING GLOMERULAR FILTRATION RATE . ESTIMATED GFR I S NOT APPLICABLE FOR DIALYSIS PATIENTS. MICHAEL (test code = MICHAEL) Tape Duplicator ID - EDASI Lab Interpretation Abnormal (test code = 30044-8) [facility] [id number] 06:45:00 Test Item Value Reference Range Interpretation Comments TOTAL PROTEIN 5.1 gm/dL 6.0-8.3 L (BEAKER) (test code = 770) ALBUMIN (BEAKER) 3.0 g/dL 3.5-5.0 L (test code = 1145) ALKALINE PHOSPHATASE 128 U/L 40-150 (BEAKER) (test code = 346) BILIRUBIN TOTAL 2.5 mg/dL 0.2-1.2 H (BEAKER) (test code = 377) SODIUM (BEAKER) (test 132 meq/L 136-145 L code = 381) POTASSIUM (BEAKER) 2.5 meq/L 3.5-5.1 LL (test code = 379) CHLORIDE (BEAKER) 98 meq/L 98-107 (test code = 382) CO2 (BEAKER) (test 21 meq/L 22-29 L code = 355) BLOOD UREA NITROGEN 10 mg/dL 7-21 (BEAKER) (test code = 354) CREATININE (BEAKER) 0.55 mg/dL 0.57-1.25 L (test code = 358) GLUCOSE RANDOM 89 mg/dL 70-105 (BEAKER) (test code = 652) CALCIUM (BEAKER) 7.6 mg/dL 8.4-10.2 L (test code = 697) AST (SGOT) (BEAKER) 75 U/L 5-34 H (test code = 353) ALT (SGPT) (BEAKER) 64 U/L 6-55 H (test code = 347) EGFR (BEAKER) (test 109 ESTIMATE D GFR IS code = 1092) mL/min/1.73 sq NOT ACCURA TE m CREATININE CLEARANCE IN PREDICTING GLOMERULAR FILTRATION RATE . ESTIMATED GFR I S NOT APPLICABLE FOR DIALYSIS PATIEN TS. Tape Duplicator ID - [id number] 06:34:00 Test Item Value Reference Range Interpretation Comments Magnesium (test code = 1.6 mg/dL 1.6-2.6 28225-8) MICHAEL (test code = MICHAEL) Tape Duplicator ID - EDASI Lab Interpretation (test Normal code = 09231-4) [facility] 06:34:00 Test Item Value Reference Range Interpretation Comments Phosphorus (test code = 2.3 mg/dL 2.3-4.7 2777-1) MICHAEL (test code = MICHAEL) Tape Duplicator ID - EDASI Lab Interpretation (test Normal code = 68713-2) [facility]01 06:34:00 Test Item Value Reference Range Interpretation Comments PHOSPHORUS (BEAKER) (test code = 2.3 mg/dL 2.3-4.7 604) Tape Duplicator ID - [id number] 06:34:00 Test Item Value Reference Range Interpretation Comments MAGNESIUM (BEAKER) (test code = 1.6 mg/dL 1.6-2.6 627) Tape Duplicator ID - EDASIPOCT-GLUCOSE [id number] 05:48:00 Test Item Value Reference Range Interpretation Comments POC-GLUCOSE METER 86 mg/dL 70-110 : TESTED A T [facility] 6720 (BEAKER) (test code = [facility], 153) [address]: Tape Duplicator/Techni benjamin ID = [id number] for SAND ERS, KRAIG POCT-GLUCOSE [id number] 23:58:00 Test Item Value Reference Range Interpretation Comments POC-GLUCOSE METER 94 mg/dL 70-110 : TESTED A T [facility] 6720 (BEAKER) (test code = [facility], 1538) 915[address]: Tape Duplicator/Techni benjamin ID = [id number] for SAND ERS, KRAIG POCT-GLUCOSE [id number] 14:18:00 Test Item Value Reference Range Interpretation Comments POC-GLUCOSE METER 93 mg/dL 70-110 : TESTED A T [facility] 6720 (BEAKER) (test code = [facility], 1538) 270[address]: Tape Duplicator/Techni benjamin ID = [id number] for Sylvia Owens POCT-GLUCOSE [id number] 12:42:00 Test Item Value Reference Range Interpretation Comments POC-GLUCOSE METER 96 mg/dL 70-110 : TESTED A T [facility] 6720 (BEAKER) (test code = [facility], 1538) 39070: Tape Duplicator/Techni benjamin ID = [id number] for Paco Alcantara [id number] 08:22:00 Test Item Value Reference Range Interpretation Comments PHOSPHORUS (BEAKER) (test code = 1.3 mg/dL 2.3-4.7 LL 604) Tape Duplicator ID - PIAYA LCOMPREHENSIVE METABOLIC [id number] 08:21:00 Test Item Value Reference Range Interpretation Comments TOTAL PROTEIN 4.6 gm/dL 6.0-8.3 L (BEAKER) (test code = 770) ALBUMIN (BEAKER) 2.8 g/dL 3.5-5.0 L (test code = 1145) ALKALINE PHOSPHATASE 113 U/L 40-150 (BEAKER) (test code = 346) BILIRUBIN TOTAL 2.8 mg/dL 0.2-1.2 H (BEAKER) (test code = 377) SODIUM (BEAKER) (test 134 meq/L 136-145 L code = 381) POTASSIUM (BEAKER) 2.4 meq/L 3.5-5.1 LL (test code = 379) CHLORIDE (BEAKER) 101 meq/L 98-107 (test code = 382) CO2 (BEAKER) (test 22 meq/L 22-29 code = 355) BLOOD UREA NITROGEN 14 mg/dL 7-21 (BEAKER) (test code = 354) CREATININE (BEAKER) 0.56 mg/dL 0.57-1.25 L (test code = 358) GLUCOSE RANDOM 100 mg/dL 70-105 (BEAKER) (test code = 652) CALCIUM (BEAKER) 7.5 mg/dL 8.4-10.2 L (test code = 697) AST (SGOT) (BEAKER) 82 U/L 5-34 H (test code = 353) ALT (SGPT) (BEAKER) 61 U/L 6-55 H (test code = 347) EGFR (BEAKER) (test 107 ESTIMATE D GFR IS code = 1092) mL/min/1.73 sq NOT ACCURA TE m CREATININE CLEARANCE IN PREDICTING GLOMERULAR FILTRATION RATE . ESTIMATED GFR I S NOT APPLICABLE FOR DIALYSIS PATIEN TS. Tape Duplicator ID - PIPAYAM [id number] 08:16:00 Test Item Value Reference Range Interpretation Comments MAGNESIUM (BEAKER) (test code = 1.3 mg/dL 1.6-2.6 L 627) Tape Duplicator ID - RYAN LCBC W/PLT COUNT & AUTO [id number] 07:59:00 Test Item Value Reference Range Interpretation Comments WHITE BLOOD CELL COUNT (BEAKER) 3.4 K/ L 3.5-10.5 L (test code = 775) RED BLOOD CELL COUNT (BEAKER) 2.93 M/ L 3.93-5.22 L (test code = 761) HEMOGLOBIN (BEAKER) (test code = 10.9 GM/DL 11.2-15.7 L 410) HEMATOCRIT (BEAKER) (test code = 30.6 % 34.1-44.9 L 411) MEAN CORPUSCULAR VOLUME (BEAKER) 104.4 fL 79.4-94.8 H (test code = 753) MEAN CORPUSCULAR HEMOGLOBIN 37.2 pg 25.6-32.2 H (BEAKER) (test code = 751) MEAN CORPUSCULAR HEMOGLOBIN CONC 35.6 GM/DL 32.2-35.5 H (BEAKER) (test code = 752) RED CELL DISTRIBUTION WIDTH 15.2 % 11.7-14.4 H (BEAKER) (test code = 412) PLATELET COUNT (BEAKER) (test code 56 K/CU MM 150-450 L = 756) MEAN PLATELET VOLUME (BEAKER) 11.1 fL 9.4-12.3 (test code = 754) NUCLEATED RED BLOOD CELLS (BEAKER) 0 /100 WBC 0-0 (test code = 413) NEUTROPHILS RELATIVE PERCENT 62 % (BEAKER) (test code = 429) LYMPHOCYTES RELATIVE PERCENT 15 % (BEAKER) (test code = 430) MONOCYTES RELATIVE PERCENT 21 % (BEAKER) (test code = 431) EOSINOPHILS RELATIVE PERCENT 2 % (BEAKER) (test code = 432) BASOPHILS RELATIVE PERCENT 0 % (BEAKER) (test code = 437) NEUTROPHILS ABSOLUTE COUNT 2.10 K/ L 1.56-6.13 (BEAKER) (test code = 670) LYMPHOCYTES ABSOLUTE COUNT 0.50 K/ L 1.18-3.74 L (BEAKER) (test code = 414) MONOCYTES ABSOLUTE COUNT (BEAKER) 0.69 K/ L 0.24-0.36 H (test code = 415) EOSINOPHILS ABSOLUTE COUNT 0.06 K/ L 0.04-0.36 (BEAKER) (test code = 416) BASOPHILS ABSOLUTE COUNT (BEAKER) 0.00 K/ L 0.01-0.08 L (test code = 417) IMMATURE GRANULOCYTES-RELATIVE 1 % 0-1 PERCENT (BEAKER) (test code = 2801) POCT-GLUCOSE [id number] 07:35:00 Test Item Value Reference Range Interpretation Comments POC-GLUCOSE METER 98 mg/dL 70-110 : TESTED A T [facility] 6720 (BEAKER) (test [facility] = [facility] 1538) 957[address]: Tape Duplicator/Techni benjamin ID = [id number] for Edson Gerardo POCT-GLUCOSE [id number] 07:03:00 Test Item Value Reference Range Interpretation Comments POC-GLUCOSE METER 103 mg/dL 70-110 : TESTED A T [facility] 6720 (BEAKER) (test code = [facility], 153) 57270: Tape Duplicator/Techni benjamin ID = [id number] for Jaimee Mccoy POCT-GLUCOSE [id number] 16:13:00 Test Item Value Reference Range Interpretation Comments POC-GLUCOSE METER 110 mg/dL 70-110 : TESTED A T [facility] 6720 (BEAKER) (test code = [facility], 153) 55499: Tape Duplicator/Techni benjamin ID = [id number] for Camden Ramirezessa POCT-GLUCOSE [id number] 13:14:00 Test Item Value Reference Range Interpretation Comments POC-GLUCOSE METER 127 mg/dL 70-110 H : TESTED A T [facility] 6720 (BEAKER) (test code = [facility], 153) 06625: Tape Duplicator/Techni benjamin ID = [id number] for Katharina Ramireza [id number] 12:48:00 Test Item Value Reference Range Interpretation Comments Potassium (test code = 3.1 meq/L 3.5-5.1 L Speci men 2823-3) slightly hemolyzed MICHAEL (test code = MICHAEL) Tape Duplicator ID - JOHN C Lab Interpretation Abnormal (test code = 51884-4) [facility] 12:48:00 Test Item Value Reference Range Interpretation Comments POTASSIUM (BEAKER) 3.1 meq/L 3.5-5.1 L Specimen slightly (test code = 379) hemolyzed Tape Duplicator ID - JOHN CPOCT-GLUCOSE [id number] 08:55:00 Test Item Value Reference Range Interpretation Comments POC-GLUCOSE METER 148 mg/dL 70-110 H : TESTED A T [facility] 6720 (BEAKER) (test code = [facility], 153) 22244: Tape Duplicator/Techni benjamin ID = [id number] for Camden Ramirezessa COMPREHENSIVE METABOLIC [id number] 04:19:00 Test Item Value Reference Range Interpretation Comments TOTAL PROTEIN 5.4 gm/dL 6.0-8.3 L (BEAKER) (test code = 770) ALBUMIN (BEAKER) 3.2 g/dL 3.5-5.0 L (test code = 1145) ALKALINE PHOSPHATASE 100 U/L 40-150 (BEAKER) (test code = 346) BILIRUBIN TOTAL 3.1 mg/dL 0.2-1.2 H (BEAKER) (test code = 377) SODIUM (BEAKER) (test 133 meq/L 136-145 L code = 381) POTASSIUM (BEAKER) 2.5 meq/L 3.5-5.1 LL (test code = 379) CHLORIDE (BEAKER) 100 meq/L 98-107 (test code = 382) CO2 (BEAKER) (test 22 meq/L 22-29 code = 355) BLOOD UREA NITROGEN 29 mg/dL 7-21 H (BEAKER) (test code = 354) CREATININE (BEAKER) 0.74 mg/dL 0.57-1.25 (test code = 358) GLUCOSE RANDOM 111 mg/dL 70-105 H (BEAKER) (test code = 652) CALCIUM (BEAKER) 8.0 mg/dL 8.4-10.2 L (test code = 697) AST (SGOT) (BEAKER) 132 U/L 5-34 H (test code = 353) ALT (SGPT) (BEAKER) 74 U/L 6-55 H (test code = 347) EGFR (BEAKER) (test 78 mL/min/1.73 ESTIMA ENRIQUE GFR IS code = 1092) sq m NOT ACCURATE CREATININE CLEARANCE IN PREDICTING GLOMERULAR FILTRATION RATE . ESTIMATED GFR I S NOT APPLICABLE FOR DIALYSIS PATIEN TS. Tape Duplicator ID Reymundo DAVIS LSpecimen slightly [id number] 04:19:00 Test Item Value Reference Range Interpretation Comments PHOSPHORUS (BEAKER) (test code = 1.5 mg/dL 2.3-4.7 LL 604) Tape Duplicator ID - RYAN [id number] 04:16:00 Test Item Value Reference Range Interpretation Comments MAGNESIUM (BEAKER) (test code = 1.7 mg/dL 1.6-2.6 627) Tape Duplicator ID - RYAN LCBC W/PLT COUNT & AUTO [id number] 03:32:00 Test Item Value Reference Range Interpretation Comments WHITE BLOOD CELL COUNT (BEAKER) 3.7 K/ L 3.5-10.5 (test code = 775) RED BLOOD CELL COUNT (BEAKER) 3.26 M/ L 3.93-5.22 L (test code = 761) HEMOGLOBIN (BEAKER) (test code = 12.3 GM/DL 11.2-15.7 410) HEMATOCRIT (BEAKER) (test code = 33.6 % 34.1-44.9 L 411) MEAN CORPUSCULAR VOLUME (BEAKER) 103.1 fL 79.4-94.8 H (test code = 753) MEAN CORPUSCULAR HEMOGLOBIN 37.7 pg 25.6-32.2 H (BEAKER) (test code = 751) MEAN CORPUSCULAR HEMOGLOBIN CONC 36.6 GM/DL 32.2-35.5 H (BEAKER) (test code = 752) RED CELL DISTRIBUTION WIDTH 15.5 % 11.7-14.4 H (BEAKER) (test code = 412) PLATELET COUNT (BEAKER) (test code 37 K/CU MM 150-450 L = 756) MEAN PLATELET VOLUME (BEAKER) 11.1 fL 9.4-12.3 (test code = 754) NUCLEATED RED BLOOD CELLS (BEAKER) 0 /100 WBC 0-0 (test code = 413) NEUTROPHILS RELATIVE PERCENT 76 % (BEAKER) (test code = 429) LYMPHOCYTES RELATIVE PERCENT 10 % (BEAKER) (test code = 430) MONOCYTES RELATIVE PERCENT 13 % (BEAKER) (test code = 431) EOSINOPHILS RELATIVE PERCENT 0 % (BEAKER) (test code = 432) BASOPHILS RELATIVE PERCENT 0 % (BEAKER) (test code = 437) NEUTROPHILS ABSOLUTE COUNT 2.85 K/ L 1.56-6.13 (BEAKER) (test code = 670) LYMPHOCYTES ABSOLUTE COUNT 0.37 K/ L 1.18-3.74 L (BEAKER) (test code = 414) MONOCYTES ABSOLUTE COUNT (BEAKER) 0.49 K/ L 0.24-0.36 H (test code = 415) EOSINOPHILS ABSOLUTE COUNT 0.01 K/ L 0.04-0.36 L (BEAKER) (test code = 416) BASOPHILS ABSOLUTE COUNT (BEAKER) 0.00 K/ L 0.01-0.08 L (test code = 417) IMMATURE GRANULOCYTES-RELATIVE 0 % 0-1 PERCENT (BEAKER) (test code = 2801) POCT-GLUCOSE [id number] 19:52:00 Test Item Value Reference Range Interpretation Comments POC-GLUCOSE METER 122 mg/dL 70-110 H : TESTED A T [facility] 6720 (BEAKER) (test code = [address] [place], 1538) 029[address]: Tape Duplicator/Techni benjamin ID = [id number] for Jaimee Mccoy POCT-GLUCOSE [id number] 18:10:00 Test Item Value Reference Range Interpretation Comments POC-GLUCOSE METER 115 mg/dL 70-110 H : TESTED A T [facility] 6720 (BEAKER) (test code = [facility] [address] [place], 1538) 29696: Tape Duplicator/Techni benjamin ID = [id number] for BONI HDZ SARS-CoV2/RT-PCR (Asymptomatic ONLY)2020-03-11 14:46:00 Test Item Value Reference Range Interpretation Comments SARS-COV2/RT-PCR Negative Not Detected, (test code = Negative, See 71831-9) external report for linked test SARS-COV-2 [facility] PERFORMING LAB (test code = 40475-4) MICHAEL (test code = Negative result for this MICHAEL) test determines that SARS-CoV-2 RNA was not present in the [...] of the Act. Fact Sheet for Healthcare Providers:https://www.Archetypes/sites/default/f riley/product/documents/F act_Sheet_HC_Providers_L gxn_DDQP-ItG-2.pdf Fact Sheet for Healthcare Patients:https://www.Webtab/sites/default/fi les/product/documents/Fa ct_Sheet_Patients_Lyra_S ARS-CoV-2.pdf Performing Laboratory:[facility] [place] [address] [place] ([facility])2020-03-11 14:46:00 Test Item Value Reference Range Interpretation Comments SARS-COV2/RT-PCR (test Negative Not Detected, Negative, code = 3945679) See external report for linked test SARS-COV-2 PERFORMING LAB [facility] (test code = 4683742) Negative result for this test determines that SARS-CoV-2 RNA was not present in the specimen above the Limit of Detection (LOD). However, Negative results do not preclude SARS-CoV-2 infection and should not be used as the sole basis for treatment or patient management decisions. Negative results mustbe combined with clinical observations, patient history, and epidemiological information. A false negative result may occur if a specimen is improperly collected, transported or handled. A false negative result should be considered if patient's recent exposures or clinical presentation indicate that COVID-19 (SARS-CoV-2) is likely and diagnostic tests for other causes of illness are negative. Re-testing should be considered in cases of suspected false negatives.The limit of detection for this assay is 800 copies/mL.This SARS CoV-2 test is a real-time RT-PCR test intended for the qualitative detection of nucleic acid from SARS-CoV-2 in a nasopharyngeal swab specimen collected from individuals susp ected of COVID-19 by their healthcare provider.This test has not been Food and Drug [...] is revoked under Section 564(g) of the Act.Fact Sheet for Healthcare Providers:https://www.Evtron/sites/default/files/product/documents/Fact_Shee r_JZ_Srrqouogn_Swsw_VJAP-XfG-7.pdfFact Sheet for Healthcare Patients:https://www.Evtron/sites/default/files/product/ documents/Wftn_Irqfo_Qrtiezdv_Lyxh_PBQS-GxB-8.pdfPerforming Laboratory:[facility], [place] [address]UBLV-CNZYJOI METER 2020-03-11 12:29:00 Test Item Value Reference Range Interpretation Comments POC-GLUCOSE METER 117 mg/dL 70-110 H : TESTED A T [facility] (BEAKER) (test code = [facility], 1538) 979[address]: Tape Duplicator/Techni benjamin ID = [id number] for RA MOS, BONI [id number] 06:39:00 Test Item Value Reference Range Interpretation Comments MAGNESIUM (BEAKER) 1.8 mg/dL 1.6-2.6 Specimen slightly (test code = 627) hemolyzed Tape Duplicator ID - PIAYA [id number] 06:39:00 Test Item Value Reference Range Interpretation Comments PHOSPHORUS (BEAKER) 2.1 mg/dL 2.3-4.7 L Specimen slightly (test code = 604) hemolyzed Tape Duplicator ID - PIAYA LCOMPREHENSIVE METABOLIC [id number] 06:39:00 Test Item Value Reference Range Interpretation Comments TOTAL PROTEIN 5.0 gm/dL 6.0-8.3 L Specimen sligh tly (BEAKER) (test code = hemoly zed 770) ALBUMIN (BEAKER) 3.2 g/dL 3.5-5.0 L Specimen sl ightly (test code = 1145) hemolyzed ALKALINE PHOSPHATASE 56 U/L 40-150 (BEAKER) (test code = 346) BILIRUBIN TOTAL 3.7 mg/dL 0.2-1.2 H Specimen sli ghtly (BEAKER) (test code = hemoly zed 377) SODIUM (BEAKER) (test 133 meq/L 136-145 L code = 381) POTASSIUM (BEAKER) 3.2 meq/L 3.5-5.1 L Specimen slightly (test code = 379) hemolyzed CHLORIDE (BEAKER) 101 meq/L 98-107 (test code = 382) CO2 (BEAKER) (test 18 meq/L 22-29 L code = 355) BLOOD UREA NITROGEN 43 mg/dL 7-21 H (BEAKER) (test code = 354) CREATININE (BEAKER) 0.81 mg/dL 0.57-1.25 Specimen slightly (test code = 358) hemolyzed GLUCOSE RANDOM 104 mg/dL 70-105 (BEAKER) (test code = 652) CALCIUM (BEAKER) 8.0 mg/dL 8.4-10.2 L (test code = 697) AST (SGOT) (BEAKER) 161 U/L 5-34 H Specimen slightly (test code = 353) hemolyzed ALT (SGPT) (BEAKER) 54 U/L 6-55 Specimen slightly (test code = 347) hemolyzed EGFR (BEAKER) (test 70 mL/min/1.73 ESTIMA ENRIQUE GFR IS code = 1092) sq m NOT ACCURATE CREATININE CLEARANCE IN PREDICTING GLOMERULAR FILTRATION RATE . ESTIMATED GFR I S NOT APPLICABLE FOR DIALYSIS PATIEN TS. Tape Duplicator ID - PIAYA LSpecimen slightly ictericCBC W/PLT COUNT & AUTO [id number] 05:56:00 Test Item Value Reference Range Interpretation Comments WHITE BLOOD CELL COUNT (BEAKER) 6.1 K/ L 3.5-10.5 (test code = 775) RED BLOOD CELL COUNT (BEAKER) 3.38 M/ L 3.93-5.22 L (test code = 761) HEMOGLOBIN (BEAKER) (test code = 12.9 GM/DL 11.2-15.7 410) HEMATOCRIT (BEAKER) (test code = 34.8 % 34.1-44.9 411) MEAN CORPUSCULAR VOLUME (BEAKER) 103.0 fL 79.4-94.8 H (test code = 753) MEAN CORPUSCULAR HEMOGLOBIN 38.2 pg 25.6-32.2 H (BEAKER) (test code = 751) MEAN CORPUSCULAR HEMOGLOBIN CONC 37.1 GM/DL 32.2-35.5 H (BEAKER) (test code = 752) RED CELL DISTRIBUTION WIDTH 15.3 % 11.7-14.4 H (BEAKER) (test code = 412) PLATELET COUNT (BEAKER) (test code 38 K/CU MM 150-450 L = 756) MEAN PLATELET VOLUME (BEAKER) 10.8 fL 9.4-12.3 (test code = 754) NUCLEATED RED BLOOD CELLS (BEAKER) 0 /100 WBC 0-0 (test code = 413) NEUTROPHILS RELATIVE PERCENT 86 % (BEAKER) (test code = 429) LYMPHOCYTES RELATIVE PERCENT 6 % (BEAKER) (test code = 430) MONOCYTES RELATIVE PERCENT 8 % (BEAKER) (test code = 431) EOSINOPHILS RELATIVE PERCENT 0 % (BEAKER) (test code = 432) BASOPHILS RELATIVE PERCENT 0 % (BEAKER) (test code = 437) NEUTROPHILS ABSOLUTE COUNT 5.26 K/ L 1.56-6.13 (BEAKER) (test code = 670) LYMPHOCYTES ABSOLUTE COUNT 0.36 K/ L 1.18-3.74 L (BEAKER) (test code = 414) MONOCYTES ABSOLUTE COUNT (BEAKER) 0.46 K/ L 0.24-0.36 H (test code = 415) EOSINOPHILS ABSOLUTE COUNT 0.00 K/ L 0.04-0.36 L (BEAKER) (test code = 416) BASOPHILS ABSOLUTE COUNT (BEAKER) 0.00 K/ L 0.01-0.08 L (test code = 417) IMMATURE GRANULOCYTES-RELATIVE 1 % 0-1 PERCENT (BEAKER) (test code = 2801) POCT-GLUCOSE [id number] 05:51:00 Test Item Value Reference Range Interpretation Comments POC-GLUCOSE METER 114 mg/dL 70-110 H : TESTED A T [facility] 6720 (BEAKER) (test code = [place], 1538) [address]: Tape Duplicator/Techni benjamin ID = [id number] for [facility] Rapid drug screen, [id number] 04:12:00 Test Item Value Reference Range Interpretation Comments Barbiturate Screen Negative Negative (test code = 04804-1) Benzodiazepine Screen Negative Negative (test code = 69392-9) Cocaine (Metab.) Negative Negative Screen (test code = 3397-7) Methadone Screen (test Negative Negative code = 54308-2) Opiate Screen (test Negative Negative code = 52870-8) Cannabinoid Screen Negative Negative (test code = 05565-7) Amph/Methamph Screen Negative Negative (test code = 78571-9) Phencyclidine Screen Negative Negative (test code = 03698-6) pH, UA (test code = 6.0 5.0-8.0 5803-2) MICHAEL (test code = MICHAEL) DRUG CUTOFF CONC.Cocaine 300 ng/mL Cannabinoid 50 ng/mLBenzodiazepine 200 ng/mLBarbiturate 200 ng/mLPhencyclidine 25 ng/mLOpiate 300 ng/mLMethadone 300 ng/mLAmphetamine/ 1000 ng/mL Methamphetamine This assay provides an unconfirmed qualitative test result for the clinical management of patients in emergency situations. Chain of custody not maintained. Some sbdb-dgl-voflimh medications, as well as adulterants, may cause inaccurate results. Clinical correlation should be applied. A more comprehensive drug screen or confirmation of a detected drug may be performed upon request.Tape Duplicator ID - WIN M Lab Interpretation Normal (test code = 09351-9) [facility] [id number] 04:12:00 Test Item Value Reference Range Interpretation Comments BARBITURATE URINE (BEAKER) (test Negative Negative code = 725) BENZODIAZEPINE SCREEN URINE (BEAKER) Negative Negative (test code = 726) COCAINE (METAB.) SCREEN (BEAKER) Negative Negative (test code = 1164) METHADONE SCREEN (BEAKER) (test code Negative Negative = 1436) OPIATE SCREEN URINE (BEAKER) (test Negative Negative code = 734) CANNABINOID SCREEN URINE (BEAKER) Negative Negative (test code = 727) AMPH/METHAMPH SCREEN (BEAKER) (test Negative Negative code = 1438) PHENCYCLIDINE SCREEN URINE (BEAKER) Negative Negative (test code = 608) PH UA (BEAKER) (test code = 467) 6.0 5.0-8.0 DRUG CUTOFF CONC.Cocaine 300 ng/mL Cannabinoid 50 ng/mLBenzodiazepine 200 ng/mLBarbiturate 200 ng/mLPhencyclidine 25 ng/mLOpiate 300 ng/mLMethadone 300 ng/mLAmphetamine/ 1000 ng/mL MethamphetamineThis assay provides an unconfirmed qualitative test result for the clinical management of patients in emergency situations. Chain of custody not maintained. Some pwxf-cpq-nfptjiv medications, as well as adulterants, may cause inaccurate results. Clinical correlation should be applied. A more comprehensivedrug screen or confirmation of a detected drug may be performed upon request.Tape Duplicator ID - WIN MUrinalysis w/Microscopic + Reflex to [id number] 04:06:00 Test Item Value Reference Range Interpretation Comments Color, UA (test code = Yellow 5778-6) Clarity, UA (test code = Clear 5767-9) Specific [place], UA (test 1.018 1.001-1.035 code = 5811-5) pH, UA (test code = 6.0 5.0-8.0 5803-2) Protein, UA (test code = Negative Negative 12076-3) Glucose, UA (test code = Negative Negative 365) Ketones, UA (test code = 10 mg/dL Negative A 2514-8) Bilirubin, UA (test code = Negative Negative 67424-9) Blood, UA (test code = Negative Negative 12089-3) Nitrite, UA (test code = Negative Negative 5802-4) Leukocytes, UA (test code Negative Negative = 5799-2) Urobilinogen, UA (test 0.2 mg/dL 0.2-1 code = 54420-1) RBC, UA (test code = 0 /HPF 60629-9) WBC, UA (test code = 1 /HPF 5821-4) Mucus (test code = 8247-9) Rare Hyaline Casts, UA (test 1 /LPF code = 87132-0) Amorphous Crystals (test Rare code = 91217-4) Specimen Source (test code = 2795) MICHAEL (test code = MICHAEL) Tape Duplicator ID - [auto]Tape Duplicator ID - tech Lab Interpretation (test Abnormal code = 67349-1) [facility] [id number] 04:06:00 Test Item Value Reference Range Interpretation Comments COLOR (BEAKER) (test code = 470) Yellow CLARITY (BEAKER) (test code = 469) Clear SPECIFIC GRAVITY UA (BEAKER) (test 1.018 1.001-1.035 code = 468) PH UA (BEAKER) (test code = 467) 6.0 5.0-8.0 PROTEIN UA (BEAKER) (test code = Negative Negative 464) GLUCOSE UA (BEAKER) (test code = Negative Negative 365) KETONES UA (BEAKER) (test code = 10 mg/dL Negative A 371) BILIRUBIN UA (BEAKER) (test code = Negative Negative 462) BLOOD UA (BEAKER) (test code = 461) Negative Negative NITRITE UA (BEAKER) (test code = Negative Negative 465) LEUKOCYTE ESTERASE UA (BEAKER) Negative Negative (test code = 466) UROBILINOGEN UA (BEAKER) (test code 0.2 mg/dL 0.2-1.0 = 463) RBC UA (BEAKER) (test code = 519) 0 /HPF WBC UA (BEAKER) (test code = 520) 1 /HPF MUCUS (BEAKER) (test code = 1574) Rare HYALINE CASTS (BEAKER) (test code = 1 /LPF 514) AMORPHOUS CRYSTALS (BEAKER) (test Rare code = 1584) SOURCE(BEAKER) (test code = 2795) Tape Duplicator ID - [auto]Tape Duplicator ID - techOsmolality, [id number] 04:02:00 Test Item Value Reference Range Interpretation Comments Osmolality, Ur (test code = 630 50-1,200 mOsm/kg mOsm/kg 2695-5) Lab Interpretation (test code Normal = 28146-0) [facility], [id number] 04:02:00 Test Item Value Reference Range Interpretation Comments OSMOLALITY URINE (BEAKER) (test 630 mOsm/kg 50-1,200 mOsm/kg code = 614) Creatinine, random [id number] 03:18:00 Test Item Value Reference Range Interpretation Comments Creatinine, Ur 47.2 mg/dL (test code = 2161-8) MICHAEL (test code = Reference Range: No MICHAEL) NormalsOperator ID - WIN Gee [place] Valleyodium, random [id number] 03:18:00 Test Item Value Reference Range Interpretation Comments Sodium Urine (test 91 meq/L code = 2955-3) MICHAEL (test code = Reference Range: No MICHAEL) NormalsOperator ID - WIN Gee [facility]Urea Nitrogen, random [id number] 03:18:00 Test Item Value Reference Range Interpretation Comments Urea Nitrogen, Ur 798 mg/dL (test code = 3095-7) MICHAEL (test code = Reference Range: No MICHAEL) NormalsOperator ID - WIN Gee [facility]oreCREATININE, RANDOM [id number] 03:18:00 Test Item Value Reference Range Interpretation Comments CREATININE URINE (AKER) (test 47.2 mg/dL code = 375) Reference Range: No NormalsOperator ID - WIN MSODIUM, RANDOM [id number] 03:18:00 Test Item Value Reference Range Interpretation Comments SODIUM URINE (AKER) (test code = 91 meq/L 243) Reference Range: No NormalsOperator ID - WIN MUREA NITROGEN, RANDOM URINE 2020-03-11 03:18:00 Test Item Value Reference Range Interpretation Comments UREA NITROGEN URINE (AKER) (test 798 mg/dL code = 538) Reference Range: No NormalsOperator ID - WIN MPOCT-GLUCOSE [id number] 01:01:00 Test Item Value Reference Range Interpretation Comments POC-GLUCOSE METER 114 mg/dL 70-110 H : TESTED A T [facility] (AKER) (test code = [place], 1538) 36763: Tape Duplicator/Techni benjamin ID = [id number] for ELIZABETH REYESA Lactic acid, [id number] 21:31:00 Test Item Value Reference Range Interpretation Comments Lactate, Venous (test 1.31 mmol/L 0.5-2.2 Specim en code = 2872) slightly hemolyzed MICHAEL (test code = MICHAEL) Tape Duplicator ID - DBSpecimen slightly icteric Lab Interpretation Normal (test code = 32131-3) [facility]CTIC ACID, [id number] 21:31:00 Test Item Value Reference Range Interpretation Comments LACTATE BLOOD VENOUS 1.31 mmol/L 0.50-2.20 Specime n slightly (2) (AKER) (test hemolyzed code = 2872) Tape Duplicator ID - DBSpecimen slightly ictericPOCT-GLUCOSE [id number] 18:10:00 Test Item Value Reference Range Interpretation Comments POC-GLUCOSE METER 114 mg/dL 70-110 H : TESTED A T [facility] (BEAKER) (test code = SHABBIR Jiménez [place], 1538) 04782: Tape Duplicator/Techni benjamin ID = [id number] for SANTOS JACOBSON DD T4, [id number] 17:23:00 Test Item Value Reference Range Interpretation Comments Free T4 (test code = 3024-7) 1.00 ng/dL 0.7-1.48 MICHAEL (test code = MICHAEL) Tape Duplicator ID - DB Lab Interpretation (test Normal code = 16288-5) [facility]atitis panel, [id number] 17:23:00 Test Item Value Reference Range Interpretation Comments Hep A IgM (test code = Nonreactive Nonreactive 72189-1) Hep B C IgM (test code = Nonreactive Nonreactive 80230-9) Hepatitis C Ab (test code = Nonreactive Nonreactive 35556-9) HBsAg Screen (test code = Nonreactive Nonreactive 5195-3) MICHAEL (test code = MICHAEL) Tape Duplicator ID - DB Lab Interpretation (test Normal code = 17413-5) [facility]oreT4, [id number] 17:23:00 Test Item Value Reference Range Interpretation Comments FREE T4 (BEAKER) (test code = 655) 1.00 ng/dL 0.70-1.48 Tape Duplicator ID - DBHEPATITIS PANEL, [id number] 17:23:00 Test Item Value Reference Range Interpretation Comments HEPATITIS A IGM ANTIBODY (BEAKER) Nonreactive Nonreactive (test code = 498) HEPATITIS B CORE IGM ANTIBODY Nonreactive Nonreactive (BEAKER) (test code = 645) HEPATITIS C ANTIBODY (BEAKER) Nonreactive Nonreactive (test code = 367) HEPATITIS B SURFACE ANTIGEN (2) Nonreactive Nonreactive (BEAKER) (test code = 2585) Tape Duplicator ID - DBTSH/Free T4 If [id number] 15:51:00 Test Item Value Reference Range Interpretation Comments TSH (test code = 0.299 0.350- 4.940 uIU/mL L 08085-5) MICHAEL (test code = MICHAEL) Tape Duplicator ID - ALIDA B Lab Interpretation (test Abnormal code = 19846-5) [facility]TSH/FREE T4 IF [id number] 15:51:00 Test Item Value Reference Range Interpretation Comments THYROID STIMULATING HORMONE 0.299 uIU/mL 0.350-4.940 L (BEAKER) (test code = 772) Tape Duplicator ID - ALIDA [id number] 15:33:00 Test Item Value Reference Range Interpretation Comments Cortisol, Total (test code 58.2 ug/dL 3.7-19.4 H = 2755) MICHAEL (test code = MICHAEL) Tape Duplicator ID - JOHN C Lab Interpretation (test Abnormal code = 05431-2) [facility]CORTISOL2020-08-28 15:33:00 Test Item Value Reference Range Interpretation Comments CORTISOL, TOTAL (BEAKER) (test 58.2 ug/dL 3.7-19.4 H code = 2755) Tape Duplicator ID - JOHN [id number] 15:07:00 Test Item Value Reference Range Interpretation Comments Procalcitonin (test code = 1.40 ng/mL <0.05 H 45145-1) MICHAEL (test code = MICHAEL) SEPSIS RISK (ng/mL)Low: 0.05-0.50Intermedi ate: 0.51-2.00High: >=2.01 Lab Interpretation (test Abnormal code = 44922-9) [facility]PROCALCITONIN2020-08-28 15:07:00 Test Item Value Reference Range Interpretation Comments PROCALCITONIN (BEAKER) (test code 1.40 ng/mL <0.05 H = 3036) SEPSIS RISK (ng/mL)Low: 0.05-0.50Intermediate: 0.51-2.00High: >=2.01B-type Natriuretic Factor (BNP)2020-03-10 14:52:00 Test Item Value Reference Range Interpretation Comments BNP (test code = 04768-4) 154 pg/mL 0-100 H MICHAEL (test code = MICHAEL) Tape Duplicator ID - JOHN C Lab Interpretation (test Abnormal code = 72194-7) [facility]oreTroponin [id number] 14:52:00 Test Item Value Reference Range Interpretation Comments Troponin I (test code = 0.04 ng/mL 0-0.03 H 05389-1) MICHAEL (test code = MICHAEL) Troponin I (TnI) levels must be interpreted in the context of the presenting symptoms and the clinical findings. Elevated TnI levels indicate myocardial damage, but are not specific for ischemic heart disease. Elevated TnI levels are seen in patients with other cardiac conditions (including myocarditis and congestive heart failure), and slight TnI elevations occur in patients with other conditions, including sepsis, renal failure, acidosis, acute neurological disease, and persistent tachyarrhythmia.Opera tor ID - JOHN C Lab Interpretation (test Abnormal code = 55745-9) [facility]oreB-TYPE NATRIURETIC FACTOR (BNP)2020-03-10 14:52:00 Test Item Value Reference Range Interpretation Comments B-TYPE NATRIURETIC PEPTIDE (BEAKER) 154 pg/mL 0-100 H (test code = 700) Tape Duplicator ID - JOHN CTROPONIN [id number] 14:52:00 Test Item Value Reference Range Interpretation Comments TROPONIN I (BEAKER) (test code = 0.04 ng/mL 0.00-0.03 H 397) Troponin I (TnI) levels must be interpreted in the context of the presenting symptoms and the clinical findings. Elevated TnI levels indicate myocardial damage, but are not specific for ischemic heart disease. Elevated TnI levels are seen in patients with other cardiac conditions (including myocarditis and congestive heart failure), and slight TnI elevations occur in patients with other conditions, including sepsis, renal failure, acidosis, acute neurological disease, and persistent tachyarrhythmia.Tape Duplicator ID - JOHN COsmolality, serum 2020-03-10 14:47:00 Test Item Value Reference Range Interpretation Comments Osmolality Serum (test code = 2692-2) 287 275- 295 mOsm/kg Lab Interpretation (test code = Normal 52969-9) [facility]OSMOLALITY, [id number] 14:47:00 Test Item Value Reference Range Interpretation Comments OSMOLALITY, SERUM (BEAKER) (test 287 mOsm/kg 275-295 code = 615) [id number] 14:46:00 Test Item Value Reference Range Interpretation Comments Amylase (test code = 397 U/L 25-125 H 1798-8) MICHAEL (test code = MICHAEL) Tape Duplicator ID - JOHN CSpecimen slightly icteric Lab Interpretation (test Abnormal code = 96491-2) [facility]oreLipase2020-08-28 14:46:00 Test Item Value Reference Range Interpretation Comments Lipase (test code = 689 U/L 8-78 H 3040-3) MICHAEL (test code = MICHAEL) Tape Duplicator ID - JOHN Sharp slightly icteric Lab Interpretation (test Abnormal code = 27966-7) [facility]oreTriglycerides2020-08-28 14:46:00 Test Item Value Reference Range Interpretation Comments Triglycerides (test 220 mg/dL code = 2571-8) MICHAEL (test code = MICHAEL) TRIGLYCERIDE REFERENCE RANGELow Risk <150Borderline Risk 150-199High Risk 200-499Very High Risk >=500Operator ID - JOHN Castanonimen slightly icteric [facility]oreMAGNESIUM2020-08-28 14:46:00 Test Item Value Reference Range Interpretation Comments MAGNESIUM (BEAKER) (test code = 1.3 mg/dL 1.6-2.6 L 627) Tape Duplicator ID - JOHN [id number] 14:46:00 Test Item Value Reference Range Interpretation Comments PHOSPHORUS (BEAKER) (test code = 1.8 mg/dL 2.3-4.7 L 604) Tape Duplicator ID - JOHN [id number] 14:46:00 Test Item Value Reference Range Interpretation Comments TRIGLYCERIDES (BEAKER) (test code = 220 mg/dL 540) TRIGLYCERIDE REFERENCE RANGELow Risk <150Borderline Risk 150-199High Risk 200-499Very High Risk>=500Operator ID - JOHN Castanonimen slightly icteric COMPREHENSIVE METABOLIC [id number] 14:46:00 Test Item Value Reference Range Interpretation Comments TOTAL PROTEIN 6.0 gm/dL 6.0-8.3 (BEAKER) (test code = 770) ALBUMIN (BEAKER) 3.9 g/dL 3.5-5.0 (test code = 1145) ALKALINE PHOSPHATASE 52 U/L 40-150 (BEAKER) (test code = 346) BILIRUBIN TOTAL 5.5 mg/dL 0.2-1.2 H (BEAKER) (test code = 377) SODIUM (BEAKER) (test 132 meq/L 136-145 L code = 381) POTASSIUM (BEAKER) 3.3 meq/L 3.5-5.1 L (test code = 379) CHLORIDE (BEAKER) 96 meq/L 98-107 L (test code = 382) CO2 (BEAKER) (test 19 meq/L 22-29 L code = 355) BLOOD UREA NITROGEN 39 mg/dL 7-21 H (BEAKER) (test code = 354) CREATININE (BEAKER) 1.52 mg/dL 0.57-1.25 H (test code = 358) GLUCOSE RANDOM 91 mg/dL 70-105 (BEAKER) (test code = 652) CALCIUM (BEAKER) 8.7 mg/dL 8.4-10.2 (test code = 697) AST (SGOT) (BEAKER) 149 U/L 5-34 H (test code = 353) ALT (SGPT) (BEAKER) 57 U/L 6-55 H (test code = 347) EGFR (BEAKER) (test 34 mL/min/1.73 ESTIMA ENRIQUE GFR IS code = 1092) sq m NOT ACCURATE CREATININE CLEARANCE IN PREDICTING GLOMERULAR FILTRATION RATE . ESTIMATED GFR I S NOT APPLICABLE FOR DIALYSIS PATIEN TS. Tape Duplicator ID - JUL CSpecimen slightly [id number] 14:46:00 Test Item Value Reference Range Interpretation Comments AMYLASE (BEAKER) (test code = 349) 397 U/L 25-125 H Tape Duplicator ID - JOHN CSpecimen slightly [id number] 14:46:00 Test Item Value Reference Range Interpretation Comments LIPASE (BEAKER) (test code = 749) 689 U/L 8-78 H Tape Duplicator ID - JOHN CSpecimen slightly [id number] 14:41:00 Test Item Value Reference Range Interpretation Comments Fibrinogen (test code = 3255-7) 115 mg/dl 225-434 L Lab Interpretation (test code = Abnormal 38856-9) [facility]oreFIBRINOGEN2020-08-28 14:41:00 Test Item Value Reference Range Interpretation Comments FIBRINOGEN LEVEL (BEAKER) (test 115 mg/dl 225-434 L code = 658) [id number] 14:38:00 Test Item Value Reference Range Interpretation Comments Ammonia (test code = 40 18- 72 mol/L Speci men 87639-1) slightly hemolyzed MICHAEL (test code = MICHAEL) Tape Duplicator ID - JOHN C Lab Interpretation Normal (test code = 08542-0) [facility]oreAMMONIA2020-08-28 14:38:00 Test Item Value Reference Range Interpretation Comments AMMONIA (BEAKER) 40 mol/L 18-72 Specimen sl ightly (test code = 348) hemolyzed Tape Duplicator ID - JOHN CLACTIC ACID, [id number] 14:37:00 Test Item Value Reference Range Interpretation Comments LACTATE BLOOD VENOUS (2) (BEAKER) 2.61 mmol/L 0.50-2.20 H (test code = 2872) Tape Duplicator ID - JOHN CSpecimen slightly ictericPT/[id number] 14:36:00 Test Item Value Reference Range Interpretation Comments Protime (test code = 18.0 11.9- 14.2 H 5902-2) seconds INR (test code = 1.53 <=5.90 6301-6) PTT (test code = 32.1 22.5- 36.0 87812-6) seconds MICHAEL (test code = MICHAEL) Effective 12/09/2018: PT Reference Range ChangeNew: 11.9-14.2 Previous: 11.7-14.7 RECOMMENDED COUMADIN/WARFARIN INR THERAPY RANGESSTANDARD DOSE: 2.0-3.0 Includes: PROPHYLAXIS for venous thrombosis, systemic embolization; TREATMENT for venous thrombosis and/or pulmonary embolus.HIGH RISK: Target INR is 2.5-3.5 for patients wiht mechanical heart valves. Lab Interpretation Abnormal (test code = 57158-6) [facility]orePT/[id number] 14:36:00 Test Item Value Reference Range Interpretation Comments PROTIME (BEAKER) (test code = 18.0 seconds 11.9-14.2 H 759) INR (BEAKER) (test code = 370) 1.53 <=5.90 PARTIAL THROMBOPLASTIN TIME 32.1 seconds 22.5-36.0 (BEAKER) (test code = 760) Effective 12/09/2018: PT Reference Range ChangeNew: 11.9-14.2 Previous: 11.7- 14.7RECOMMENDED COUMADIN/WARFARIN INR THERAPY RANGESSTANDARD DOSE: 2.0-3.0 Includes: PROPHYLAXIS for venous thrombosis, systemic embolization; TREATMENT for venous thrombosis and/or pulmonary embolus.HIGH RISK: Target INR is2.5-3.5 for patients wiht mechanical heart valves.CBC W/PLT COUNT & AUTO [id number] 14:33:00 Test Item Value Reference Range Interpretation Comments WHITE BLOOD CELL COUNT (BEAKER) 10.5 K/ L 3.5-10.5 (test code = 775) RED BLOOD CELL COUNT (BEAKER) 3.97 M/ L 3.93-5.22 (test code = 761) HEMOGLOBIN (BEAKER) (test code = 14.8 GM/DL 11.2-15.7 410) HEMATOCRIT (BEAKER) (test code = 41.3 % 34.1-44.9 411) MEAN CORPUSCULAR VOLUME (BEAKER) 104.0 fL 79.4-94.8 H (test code = 753) MEAN CORPUSCULAR HEMOGLOBIN 37.3 pg 25.6-32.2 H (BEAKER) (test code = 751) MEAN CORPUSCULAR HEMOGLOBIN CONC 35.8 GM/DL 32.2-35.5 H (BEAKER) (test code = 752) RED CELL DISTRIBUTION WIDTH 15.5 % 11.7-14.4 H (BEAKER) (test code = 412) PLATELET COUNT (BEAKER) (test code 53 K/CU MM 150-450 L = 756) MEAN PLATELET VOLUME (BEAKER) 10.0 fL 9.4-12.3 (test code = 754) NUCLEATED RED BLOOD CELLS (BEAKER) 0 /100 WBC 0-0 (test code = 413) NEUTROPHILS RELATIVE PERCENT 87 % (BEAKER) (test code = 429) LYMPHOCYTES RELATIVE PERCENT 7 % (BEAKER) (test code = 430) MONOCYTES RELATIVE PERCENT 6 % (BEAKER) (test code = 431) EOSINOPHILS RELATIVE PERCENT 0 % (BEAKER) (test code = 432) BASOPHILS RELATIVE PERCENT 0 % (BEAKER) (test code = 437) NEUTROPHILS ABSOLUTE COUNT 9.08 K/ L 1.56-6.13 H (BEAKER) (test code = 670) LYMPHOCYTES ABSOLUTE COUNT 0.69 K/ L 1.18-3.74 L (BEAKER) (test code = 414) MONOCYTES ABSOLUTE COUNT (BEAKER) 0.65 K/ L 0.24-0.36 H (test code = 415) EOSINOPHILS ABSOLUTE COUNT 0.00 K/ L 0.04-0.36 L (BEAKER) (test code = 416) BASOPHILS ABSOLUTE COUNT (BEAKER) 0.00 K/ L 0.01-0.08 L (test code = 417) IMMATURE GRANULOCYTES-RELATIVE 1 % 0-1 PERCENT (BEAKER) (test code = 2801) Blood gas, [id number] 14:30:00 Test Item Value Reference Range Interpretation Comments pH, Rito (test code = 2746-6) 7.33 7.32-7.42 pCO2, Rito (test code = 755) 44 41- 51 mmHg pO2, Rito (test code = 2705-2) 30 25- 40 mmHg O2 Sat, Rito (test code = 2711-0) 52.3 % 40-70 HCO3, Rito (test code = 43937-2) 23 mmol/L 21-29 Base Excess, Rito (test code = -3.3 mmol/L -2-3 L 1927-3) Patient Temperature (test code = 37.0 C 8310-5) FIO2 (test code = 1819) 21 % Lab Interpretation (test code = Abnormal 06319-4) [facility]oreCalcium, [id number] 14:30:00 Test Item Value Reference Range Interpretation Comments Calcium, Ion (test code = 1993-) 1.05 mmol/L 1.12-1.27 L pH, Blood (test code = 31062-9) 7.33 Lab Interpretation (test code = Abnormal 77362-2) [facility]oreCALCIUM, [id number] 14:30:00 Test Item Value Reference Range Interpretation Comments CALCIUM IONIZED (BEAKER) (test 1.05 mmol/L 1.12-1.27 L code = 698) PH, BLOOD (BEAKER) (test code = 7.33 1810) BLOOD GAS, [id number] 14:30:00 Test Item Value Reference Range Interpretation Comments PH VENOUS (BEAKER) (test code = 7.33 7.32-7.42 701) PCO2 VENOUS (BEAKER) (test code = 44 mmHg 41-51 755) PO2 VENOUS (BEAKER) (test code = 30 mmHg 25-40 702) O2 SATURATION VENOUS (BEAKER) 52.3 % 40.0-70.0 (test code = 703) HCO3 VENOUS (BEAKER) (test code = 23 mmol/L 21-29 705) BASE EXCESS VENOUS (BEAKER) (test -3.3 mmol/L -2.0-3.0 L code = 704) PATIENT TEMPERATURE (BEAKER) 37.0 C (test code = 1818) FIO2 (BEAKER) (test code = 1819) 21.0 %
--- NOTE | 2020-05-29 11:49 | RAD REPORT ---
EXAM DESCRIPTION: [place] Single View05/29/2020 11:38 am CLINICAL HISTORY: Cough COMPARISON: February 2020 FINDINGS: Calcified granulomas within the lungs. The lungs appear clear of acute infiltrate. The he art is normal size IMPRESSION: No acute abnormalities displayed
[2020-05-29 12:12] LABS: Anisocytosis 1+; Blood Morphology Comment NOTED (NOT SEEN); Macrocytosis 1+; Platelet Estimate ADEQ; White Blood Cell Scan OK (OK)
[2020-05-29] MEDS ORDERED: LORazepam 2 MG/ML VIAL ONE (12:30)
--- NOTE | 2020-05-29 12:41 | RAD REPORT ---
EXAM DESCRIPTION: CT - Chest Abd Pelvis Wo Con - 05/29/2020 12:29 pm CLINICAL HISTORY: Chest and abdomen pain. cough, vomiting, abdominal pain COMPARISON: [place] Protocol dated 03/10/2020; Chest Single View dated 05/29/2020 TECHNIQUE: A limited noncontrast study was performed. All CT scans are performed using dose optimization technique as appropriate and may include automated exposure control or mA/KV adjustment according to patient size. FINDINGS: Mild diffuse COPD is present.Lung nodule, mass or infiltrate seen.No pleural or pericardia l effusion.No intrathoracic adenopathy. Prominent diffuse fatty liver is seen. Cholelithiasis. The spleen, pancreas, adrenal glands and kidne ys are within limits. Left-sided renal cysts are present with hyperdense. No bowel obstruction, free air, free fluid or abscess. Normal appendix. No pathologic lymphadenopath y in the abdomen or pelvis. No worrisome osseous finding. Soft tissue density 26 mm lesion is seen superficial to the right glute us musculature. This is nonspecific. IMPRESSION: Mild diffuse COPD is present without acute infiltrate. Advanced fatty liver. Cholelithiasis. 26 mm soft tissue density lesion superficial to the right gluteus musculature. This is a nonspecific finding but may represent injection granuloma or small hematoma. Followup imaging would be suggested in 3-6 months for surveillance.
--- NOTE | 2020-05-29 13:33 | RAD REPORT ---
EXAM DESCRIPTION: US - Abdomen Exam Limited - 05/29/2020 1:19 pm CLINICAL HISTORY: vomiting Right upper quadrant pain. COMPARISON: Abdomen Exam Limited dated 03/10/2020 FINDINGS: The gallbladder demonstrates shadowing gallstones. No pericholecystic fluid or gallbladder wall thickening. The common bile duct is upper limit of normal measuring 5-6 mm. The liver demonstrates no findings of intrahepatic biliary dilatation. IMPRESSION: Cholelithiasis.
[2020-05-29] MEDS ORDERED: DIAZEPAM 10 MG/2 ML INJ SYRINGE ONE (14:22)
--- NOTE | 2020-05-29 14:57 | RAD REPORT ---
EXAM DESCRIPTION: CT - Head Brain Wo Cont - 05/29/2020 2:39 pm CLINICAL HISTORY: DIZZINESS Headache, drowsiness, dizziness COMPARISON: Head Brain Wo Cont dated 03/10/2020; Head Brain Wo Cont dated 05/19/2018 TECHNIQUE: All CT scans are performed using dose optimization technique as appropriate and may inclu de automated exposure control or mA/KV adjustment according to patient size. FINDINGS: No intracranial hemorrhage, hydrocephalus or extra-axial fluid collection.Moderate diffuse brain atrophy.No areas of brain edema or evidence of midline shift. The paranasal sinuses and mastoids are clear. The calvarium is intact. IMPRESSION: No acute intracranial abnormality.
--- NOTE | 2020-05-29 16:14 | ER ---
Nurse's Notes [facility] Name: Ciara Faith Age: 70 yrs Sex: Female : 1950 Arrival Date: 05/29/2020 Time: 10:21 Bed 20 Private MD: Diagnosis: Vomiting;Dizziness and giddiness Presentation: 05/29 10:22 Chief complaint: EMS states: pt c/o of nausea, vomiting, cough, and weakness for 4 ph days. denies sob, or chest pain. Coronavirus screen: Client presents with at least one sign or symptom that may indicate coronavirus-19. Standard/surgical mask placed on the client. Provider contacted for isolation considerations. Ebola Screen: No symptoms or risks identified at this time. Initial Sepsis Screen: Does the patient meet any 2 criteria? No. Patient's initial sepsis screen is negative. Does the patient have a suspected source of infection? No. Patient's initial sepsis screen is negative. Risk Assessment: Do you want to hurt yourself or someone else? Patient reports no desire to harm self or others. Onset of symptoms was May 25, 2020. 10:22 Method Of Arrival: EMS: [facility] 10:22 Acuity: LINA 2 ph Triage Assessment: 10:28 General: Appears in no apparent distress. comfortable, slender, Behavior is calm, zb cooperative. General: Reports fatigue for >3 days. Pain: Denies pain. EENT: Reports loss of taste. Neuro: Level of Consciousness is awake, alert, obeys commands, Oriented to person, place, time, situation. Cardiovascular: Reports nausea, vomiting, Capillary refill < 3 seconds in bilateral fingers. Respiratory: Reports cough that is dry. GI: Reports diarrhea, nausea, vomiting. : No signs and/or symptoms were reported regarding the genitourinary system. Derm: Skin is intact, is healthy with good turgor. Musculoskeletal: Circulation, motion, and sensation intact. Range of motion: intact in all extremities. Historical: - Allergies: 10:28 [place]; zb - Home Meds: 10:28 pantoprazole 40 mg Oral TbEC once daily [Active]; folic acid 1 mg oral tab [Active]; zb - PMHx: 10:28 GERD; Alcoholism; UTI; zb - PSHx: 10:28 None; zb - Immunization history:: Adult Immunizations up to date. - Social history:: Smoking status: Patient denies any tobacco usage or history of. Screenin:24 Abuse screen: Denies threats or abuse. Nutritional screening: No deficits noted. em Tuberculosis screening: No symptoms or risk factors identified. Fall Risk None identified. Assessment: 11:00 General: Appears in no apparent distress. uncomfortable, Behavior is calm, cooperative, em appropriate for age. Pain: Denies pain. Neuro: Level of Consciousness is awake, alert, obeys commands, Oriented to person, place, time, situation, Appropriate for age. Cardiovascular: Capillary refill < 3 seconds Patient's skin is warm and dry. Respiratory: Reports cough that is non-productive, Airway is patent Respiratory effort is even, unlabored, Respiratory pattern is regular, symmetrical. GI: Abdomen is flat, Reports nausea, vomiting. EENT: Reports loss of smell and taste . 12:15 Reassessment: reports nausea, provider notified. em 12:50 Reassessment: Patient appears in no apparent distress at this time. Patient and/or em family updated on plan of care and expected duration. Pain level reassessed. Patient is alert, oriented x 3, equal unlabored respirations, skin warm/dry/pink. Patient states symptoms have improved. 13:54 Reassessment: Patient appears in no apparent distress at this time. Patient and/or em family updated on plan of care and expected duration. Pain level reassessed. Patient is alert, oriented x 3, equal unlabored respirations, skin warm/dry/pink. 14:00 Reassessment: cup of water given for PO challenge, pt currently has eyes closed, em respirations even and unlabored, skin pink warm and dry. 15:00 Reassessment: Patient appears in no apparent distress at this time. Patient and/or em family updated on plan of care and expected duration. Pain level reassessed. Patient is alert, oriented x 3, equal unlabored respirations, skin warm/dry/pink. 16:00 Reassessment: Patient appears in no apparent distress at this time. Patient and/or em family updated on plan of care and expected duration. Pain level reassessed. Patient is alert, oriented x 3, equal unlabored respirations, skin warm/dry/pink. 17:00 Reassessment: Patient appears in no apparent distress at this time. Patient and/or em family updated on plan of care and expected duration. Pain level reassessed. Patient is alert, oriented x 3, equal unlabored respirations, skin warm/dry/pink. 18:02 Reassessment: Patient appears in no apparent distress at this time. Patient and/or em family updated on plan of care and expected duration. Pain level reassessed. Patient is alert, oriented x 3, equal unlabored respirations, skin warm/dry/pink. 19:10 General: Appears in no apparent distress. Behavior is calm, cooperative, appropriate for age. Pain: Denies pain. Neuro: Level of Consciousness is awake, alert, obeys commands, Oriented to person, place, time, situation, Appropriate for age Reports dizziness. Cardiovascular: Capillary refill < 3 seconds. Respiratory: Airway is patent Respiratory effort is even, unlabored, Respiratory pattern is regular, symmetrical. GI: Abdomen is flat, non-distended. : No signs and/or symptoms were reported regarding the genitourinary system. EENT: No signs and/or symptoms were reported regarding the EENT system. Derm: Skin is intact, is healthy with good turgor, Skin is pink, warm \T\ dry. normal. Musculoskeletal: Circulation, motion, and sensation intact. 20:30 Reassessment: Patient appears in no apparent distress at this time. No changes from previously documented assessment. Patient and/or family updated on plan of care and expected duration. Pain level reassessed. Patient is alert, oriented x 3, equal unlabored respirations, skin warm/dry/pink. 22:00 Reassessment: Patient appears in no apparent distress at this time. Patient and/or family updated on plan of care and expected duration. Pain level reassessed. Patient is alert, oriented x 3, equal unlabored respirations, skin warm/dry/pink. Vital Signs: 10:22 BP 115 / 65; Pulse 116; Resp 20; Temp 98.1; Pulse Ox 99% on R/A; Weight 52.16 kg; ph Height 5 ft. 4 in. (162.56 cm); Pain 0/10; 12:57 BP 132 / 47; Pulse 106; Resp 18; Pulse Ox 97% on R/A; em 13:52 BP 144 / 68; Pulse 110; Resp 18; Pulse Ox 99% on R/A; em 15:19 BP 141 / 49; Pulse 109; Resp 20; Pulse Ox 99% on R/A; em 16:00 BP 142 / 65; Pulse 110; Resp 16; Pulse Ox 99% on R/A; em 17:00 BP 152 / 55; Pulse 107; Resp 18; Pulse Ox 97% on R/A; em 18:00 BP 152 / 55; Pulse 109; Resp 20; Pulse Ox 97% on R/A; em 19:00 BP 153 / 71; Pulse 106; Resp 18; Pulse Ox 95% on R/A; wh 20:00 BP 135 / 53; Pulse 102; Resp 16; Pulse Ox 96% on R/A; wh 21:00 BP 144 / 60; Pulse 101; Resp 16; Pulse Ox 95% on R/A; wh 22:00 BP 129 / 59; Pulse 110; Resp 18; Pulse Ox 96% on R/A; wh 10:22 Body Mass Index 19.74 (52.16 kg, 162.56 cm) ph ED Course: 10:21 Patient arrived in ED. ph 10:23 Delvis Horta, RN is Primary Nurse. em 10:26 Damián Goldman PA is PHCP. jmm 10:26 Paul Melvin MD is Attending Physician. jmm 10:26 Triage completed. ph 10:30 Arm band placed on. em 11:00 Missed attempt(s): 22 gauge in left antecubital area. Bleeding controlled, band aid dh3 applied, catheter tip intact. 11:06 Initial lab(s) drawn, by id, sent to lab. Inserted saline lock: 24 gauge in left dh3 forearm, using aseptic technique. Blood collected. 11:20 Patient has correct armband on for positive identification. Call light in reach. Side em rails up X2. Adult w/ patient. 11:38 Chest Single View XRAY In Process Unspecified. EDMS 12:29 CT Chest Abdomen Pelvis W/O Contrast In Process Unspecified. EDMS 13:14 US Abdomen Limited In Process Unspecified. EDMS 14:23 EKG done, by ED staff, reviewed by Damián AN. dh3 14:39 CT Head Brain wo Cont In Process Unspecified. EDMS 16:13 Vick Melvin MD is Hospitalizing Provider. jmm 22:18 No provider procedures requiring assistance completed. Patient admitted, IV remains in ea place. Administered Medications: 11:20 Drug: NS 0.9% 1000 ml Route: IV; Rate: 1 bolus; Site: left forearm; ss 13:51 Follow up: IV Status: Completed infusion; IV Intake: 1000ml em 11:22 Drug: Zofran (Ondansetron) 4 mg Route: IVP; Site: left forearm; ss 11:45 Follow up: Response: No adverse reaction; Nausea is decreased em 12:20 Drug: Ativan 1 mg Route: IVP; Site: left forearm; em 13:51 Follow up: Response: No adverse reaction em 14:24 Drug: Valium 5 mg Route: IVP; Site: left forearm; em 15:30 Follow up: Response: No adverse reaction; Marked relief of symptoms em Intake: 13:51 IV: 1000ml; Total: 1000ml. em Outcome: 16:13 Decision to Hospitalize by Provider. harsha 22:19 Admitted to Med/surg accompanied by tech, room 225, with chart, Report called to ea Report called to receiving nurse 22:19 Condition: stable 22:19 Instructed on the need for admit. 22:36 Patient left the ED. wh Signatures: Dispatcher [employer] EDMS Damián Goldman PA PA [facility] Delvis Horta RN Lynne Ramirez, RN Paula Sierra RN RN ph Herrera, Deanna [facility] Hedy Harper RN RN ea Habalo, Winsy Katherin Benson RN ERICA gonsalez
--- NOTE | 2020-05-29 16:14 | EDPHYS ---
Physician Documentation [facility] Name: Ciara Faith Age: 70 yrs Sex: Female : 1950 Arrival Date: 05/29/2020 Time: 10:21 Bed 20 Private MD: ED Physician Paul Melvin HPI: 05/29 10:42 This 70 yrs old Female presents to ER via EMS with complaints of Cough, jmm Nausea/Vomiting/Diarrhea. 10:42 The patient or guardian reports cough. Onset: The symptoms/episode began/occurred jmm gradually, 5 day(s) ago. Modifying factors: The symptoms are alleviated by nothing, the symptoms are aggravated by nothing. This is a 70 year old female with a history of GERD, alcoholism that presents to the ED with complaints of cough, vomiting, weakness beginning approx 5 days ago. Patient states having abdominal pain with vomiting otherwise denies episodes. Patient states she still drinks etoh daily. . Historical: - Allergies: 10:28 [place]; zb - Home Meds: 10:28 pantoprazole 40 mg Oral TbEC once daily [Active]; folic acid 1 mg oral tab [Active]; zb - PMHx: 10:28 GERD; Alcoholism; UTI; zb - PSHx: 10:28 None; zb - Immunization history:: Adult Immunizations up to date. - Social history:: Smoking status: Patient denies any tobacco usage or history of. ROS: 10:42 Cardiovascular: Negative for chest pain, palpitations, and edema, Respiratory: Negative jmm for shortness of breath, cough, wheezing, and pleuritic chest pain. 10:42 Constitutional: Positive for fatigue, malaise. 10:42 Abdomen/GI: Positive for abdominal pain, nausea and vomiting. 10:42 Neuro: Positive for weakness. 10:42 All other systems are negative. Exam: 10:42 Constitutional: This is a well developed, well nourished patient who is awake, alert, jmm and in no acute distress. Head/Face: atraumatic. Eyes: EOMI, no conjunctival erythema appreciated ENT: Moist Mucus Membranes Neck: Trachea midline, Supple Chest/axilla: Normal chest wall appearance and motion. Cardiovascular: Regular rate and rhythm. No edema appreciated Respiratory: Normal respirations, no respiratory distress appreciated 10:42 Back: Normal ROM Skin: General appearance color normal MS/ Extremity: Moves all extremities, no obvious deformities appreciated, no edema noted to the lower extremities Neuro: Awake and alert, normal gait Psych: Behavior is normal, Mood is normal, Patient is cooperative and pleasant 10:42 Abdomen/GI: Inspection: abdomen appears normal, Bowel sounds: normal, Palpation: soft, nontender, in all quadrants. Vital Signs: 10:22 BP 115 / 65; Pulse 116; Resp 20; Temp 98.1; Pulse Ox 99% on R/A; Weight 52.16 kg; ph Height 5 ft. 4 in. (162.56 cm); Pain 0/10; 12:57 BP 132 / 47; Pulse 106; Resp 18; Pulse Ox 97% on R/A; em 13:52 BP 144 / 68; Pulse 110; Resp 18; Pulse Ox 99% on R/A; em 15:19 BP 141 / 49; Pulse 109; Resp 20; Pulse Ox 99% on R/A; em 16:00 BP 142 / 65; Pulse 110; Resp 16; Pulse Ox 99% on R/A; em 17:00 BP 152 / 55; Pulse 107; Resp 18; Pulse Ox 97% on R/A; em 18:00 BP 152 / 55; Pulse 109; Resp 20; Pulse Ox 97% on R/A; em 19:00 BP 153 / 71; Pulse 106; Resp 18; Pulse Ox 95% on R/A; wh 20:00 BP 135 / 53; Pulse 102; Resp 16; Pulse Ox 96% on R/A; wh 21:00 BP 144 / 60; Pulse 101; Resp 16; Pulse Ox 95% on R/A; wh 22:00 BP 129 / 59; Pulse 110; Resp 18; Pulse Ox 96% on R/A; wh 10:22 Body Mass Index 19.74 (52.16 kg, 162.56 cm) ph MDM: 10:42 Patient medically screened. [facility] 14:10 Data reviewed: vital signs, nurses notes. ED course: Patient complains of dizziness harsha when getting out of a chair. Describes it as a rocking sensation. Will further evaluation for central cause. . 16:11 Data reviewed: lab test result(s), radiologic studies, CT scan, plain films. [facility] Counseling: I had a detailed discussion with the patient and/or guardian regarding: the historical points, exam findings, and any diagnostic results supporting the discharge/admit diagnosis, lab results, radiology results, the need for further work-up and treatment in the hospital. ED course: Patient unable to ambulate in the ED. Will be admitted due to fall risk. Most likely peripheral vertigo. I discussed the patient with Dr. Melvin whom accepted the patient. . 05/29 10:42 Order name: Basic Metabolic Panel; Complete Time: 11:39 [facility] 05/29 10:42 Order name: CBC with Diff; Complete Time: 12:18 [facility] 05/29 10:42 Order name: Hepatic Function; Complete Time: 11:39 [facility] 05/29 10:42 Order name: Lipase; Complete Time: 11:39 [facility] 05/29 12:12 Order name: CBC Smear Scan; Complete Time: 12:18 [facility] 05/29 13:36 Order name: ETOH Level; Complete Time: 13:59 [facility] 05/29 11:22 Order name: Chest Single View XRAY; Complete Time: 11:54 [facility] 05/29 11:54 Order name: CT Chest Abdomen Pelvis W/O Contrast; Complete Time: 12:43 [facility] 05/29 12:44 Order name: US Abdomen Limited; Complete Time: 13:35 [facility] 05/29 14:04 Order name: CT Head Brain wo Cont; Complete Time: 14:59 [facility] 05/29 14:04 Order name: Troponin (emerg Dept Use Only); Complete Time: 14:44 [facility] 05/29 20:15 Order name: COVID-19 [place] 05/29 20:47 Order name: [facility] 05/29 21:58 Order name: SARS-COV-2 RT PCR; Complete Time: 16:32 [facility] 05/29 10:42 Order name: IV Saline Lock; Complete Time: 11:12 [facility] 05/29 10:42 Order name: Labs collected and sent; Complete Time: 11:12 [facility] 05/29 13:36 Order name: PO challenge; Complete Time: 14:00 [facility] 05/29 14:04 Order name: EKG - Nurse/Tech; Complete Time: 14:30 [facility] Administered Medications: 11:20 Drug: NS 0.9% 1000 ml Route: IV; Rate: 1 bolus; Site: left forearm; ss 13:51 Follow up: IV Status: Completed infusion; IV Intake: 1000ml em 11:22 Drug: Zofran (Ondansetron) 4 mg Route: IVP; Site: left forearm; ss 11:45 Follow up: Response: No adverse reaction; Nausea is decreased em 12:20 Drug: Ativan 1 mg Route: IVP; Site: left forearm; em 13:51 Follow up: Response: No adverse reaction em 14:24 Drug: Valium 5 mg Route: IVP; Site: left forearm; em 15:30 Follow up: Response: No adverse reaction; Marked relief of symptoms em Disposition: 05/29/20 16:13 Hospitalization ordered by Vick Melvin for Observation. Preliminary diagnosis are Vomiting, Dizziness and giddiness. - Bed requested for Telemetry/MedSurg (observation). - Status is Observation. wh - Condition is Stable. - Problem is new. - Symptoms are unchanged. Addendum: 05/31/2020 18:56 Co-signature as Attending Physician, Paul Melvin MD. r n Signatures: Dispatcher [employer] EDDamián Carrasco PA PA jmm Munoz, Edgar, RN Paul Bhandari MD MD rn Smirch, Shelby, RN RN ss Garcia, Cindy, RN RN Niko Ariza Katherin Benson, RN RN zb Corrections: (The following items were deleted from the chart) 05/29 22:05 16:13 Hospitalization Ordered by Vick Melvin MD for Observation. Preliminary cg diagnosis is Vomiting; Dizziness and giddiness. Bed requested for Telemetry/MedSurg (observation). Status is Observation. Condition is Stable. Problem is new. Symptoms are unchanged. [facility] 22:36 22:05 05/29/2020 16:13 Hospitalization Ordered by Vick Melvin MD for Observation. Preliminary diagnosis is Vomiting; Dizziness and giddiness. Bed requested for Telemetry/MedSurg (observation). Status is Observation. Condition is Stable. Problem is new. Symptoms are unchanged. cg
--- NOTE | 2020-05-29 17:18 | P.HP ---
Certification for Inpatient Patient admitted to: Observation Practitioner: I am a practitioner with admitting privileges, knowledge of patient current condition, hospital course, and medical plan of care. Services: Services provided to patient in accordance with Admission requirements found in Title 42 Section 412.3 of the Code of Federal Regulations Patient History Date of Service: 05/29/20 Reason for admission: Intractable nausea, and dizziness History of Present Illness: 70-year-old female, PMH: GERD, pancreatitis, alcohol abuse, and frequent UTIs who presents to ED with 4-5 days of nausea/vomiting/diarrhea and dizziness. She reports these symptoms have been fairly unchanged except her dizziness seems to be getting worse. States the dizziness mainly occurs when she stands up, and this is new for her. The dizziness is not positional. The dizziness is making it difficult for her to walk. She denies fevers/chills, no changes in medications, no urinary tract infection symptoms. She was recently treated for UTI 3 weeks ago. She also reports decreased p.o. intake. HR: 116, BP: 115/65, no leukocytosis, mild hypernatremia, elevated creatinine. CT chest/abdomen/pelvis without any acute/new findings. Abdominal ultrasound with cholelithiasis. 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 She has 3 children. 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 She works as a tax filer. - Family History Mother -: Cancer Father -: Lung disease Notes: emphysema - Social History Smoking Status: Former smoker (Quit 40 years ago) Alcohol use: Yes CD- Drugs: No Caffeine use: No Place of Residence: Home Review of Systems 10-point ROS is otherwise unremarkable Physical Examination - Physical Exam General: Alert, Oriented x3, Mild distress HEENT: EOMI, Sclerae nonicteric Respiratory: Clear to auscultation bilaterally (Nonlabored) Cardiovascular: No edema, Other (Sinus tachycardia) Gastrointestinal: Soft and benign, Non-distended, No tenderness Musculoskeletal: No tenderness Integumentary: No rashes Neurological: Normal speech, Cranial nerves 3-12 intact, Normal affect - Studies Laboratory Data (last 24 hrs) 05/29/20 11:06: WBC 6.8, Hgb 15.6 H, Hct 45.8 H, Plt Count 221 05/29/20 11:06: Sodium 133 L, Potassium 3.6, BUN 18, Creatinine 1.63 H, Glucose 113 H, Total Bilirubin 2.1 H, AST 137 H, ALT 44, Alkaline Phosphatase 83, Lipase 36 L Assessment and Plan Discharge Plan: Home Plan to discharge in: 24 Hours - Advance Directives Does patient have a Living Will: No Does patient have a Durable POA for Healthcare: No - Code Status/Comfort Care Code Status: Full Code Physician Review Additional Text: Nausea, vomiting, abdominal pain Dizziness Acute kidney injury secondary to dehydration Mild hyponatremia likely related to volume depletion Alcohol abuse Elevated LFTs likely from alcohol abuse -unclear etiology, CT chest/abdomen/pelvis without any acute process -no leukocytosis, afebrile, will hold off on any antibiotics at this time -patient may be orthostatic since dizziness occurs when she stands. Will obtain orthostatic vitals -will give IV fluids/banana bag for rehydration, consult Nephrology if renal function does not improve -UA was not done in the ED, will obtain urinalysis -alcohol withdrawal protocol, PRN Ativan only for now. Patient states she does not think she withdrawals, drinks 1 glass of wine daily. Last drink was 2 days ago -obtain home meds and continue as appropriate Time Spent Managing Pts Care (In Minutes): 55
[2020-05-29] MEDS ORDERED: FOLIC ACID 1 MG, MULTIVITAMINS INJ 10 ML, THIAMINE HCL 100 MG in NA CHLORIDE 0.9% 1,000 ML IV SCH (22:47)
[2020-05-29] MEDS ORDERED: ONDANSETRON 4 MG/2 ML VIAL IV PRN (22:47)
[2020-05-29] MEDS ORDERED: LORazepam 2 MG/ML VIAL IV PRN (22:47)
[2020-05-29] MEDS ORDERED: FLUMAZENIL 0.1 MG/ML (5 mL VIAL) IV PRN (22:47)
[2020-05-29 22:52] VITALS: BMI 21.6
[2020-05-30] MEDS ORDERED: ONDANSETRON 4 MG/2 ML VIAL IV ONE (03:54)
[2020-05-30] MEDS ORDERED: NA CHLORIDE 0.9% 500 ML IV ONE (03:54)
[2020-05-30 04:07] LABS: Absolute Lymphocytes (CBC) 0.6 K/uL (0.7-4.9); Basophils % 0.1 % (0-1.3); Hematocrit 42.1 % (36.0-45.0); MPV 8.5 fL (7.6-11.3); RBC Red Blood Cell Count 3.98 M/uL (3.86-4.86)
[2020-05-30 04:48] LABS: Albumin 3.4 g/dL (3.4-5.0); Bilirubin Total 1.7 mg/dL (0.2-1.0); Potassium 3.2 mmol/L (3.5-5.1); Protein, Total 5.8 g/dL (6.4-8.2); Thyroid Stimulating Hormone 0.969 uIU/mL (0.360-3.740)
[2020-05-30 04:52] LABS: Magnesium 1.3 mg/dL (1.8-2.4)
[2020-05-30] MEDS ORDERED: FAMOTIDINE 20 MG/2 ML VIAL IV ONE (04:57)
[2020-05-30] MEDS ORDERED: Magnesium Sulfate 2gm IVPB 2 G/50 ML BAG IV ONE (06:00)
[2020-05-30] MEDS ORDERED: POTASSIUM CL SA 10 MEQ TAB PO ONE (06:00)
[2020-05-30 08:53] VITALS: O2SAT 97
[2020-05-30] MEDS ORDERED: ENOXAPARIN 30 MG/0.3 ML SQ SCH (09:00)
[2020-05-30] MEDS ORDERED: ENOXAPARIN 40 MG/0.4 ML SQ SCH (09:30)
[2020-05-30 12:38] LABS: Magnesium 2.3 mg/dL (1.8-2.4); Potassium 3.9 mmol/L (3.5-5.1)
[2020-05-30] MEDS ORDERED: ACETAMINOPHEN 325 MG TABLET PO ONE (12:44)
--- NOTE | 2020-05-30 12:50 | P.DS ---
Admission Date: 05/29/20 Discharge Date: 05/30/20 Disposition: ROUTINE DISCHARGE Discharge Condition: FAIR Reason for Admission: Intractable nausea, and dizziness Consultations: none Procedures: None Brief History of Present Illness: 70-year-old woman with a history of recurrent UTI chronic alcoholism presented to the emergency department with a complaint of nausea and vomiting and dizziness. Patient related the dizziness to standing from supine or sitting position. She was recently treated for UTI. CT head done in the emergency department did not show any acute changes. Blood work was unremarkable, did notes macrocytosis. Patient was hospitalized for further evaluation. Hospital Course: Patient noted to be orthostatics which could explain her dizziness. Patient was evaluated by PT. He ambulated several feet without assistance. Her symptoms also improved after hospitalization. There were no signs or symptoms of alcohol withdrawal. Patient has been told orthostatics precautions. 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 She is clinically stable for discharge today. Vital Signs/Physical Exam: Temp Pulse Resp BP Pulse Ox 97.2 F 99 H 18 145/65 H 95 05/30/20 08:00 05/30/20 08:00 05/30/20 08:00 05/30/20 08:00 05/30/20 08:00 General: Alert, In no apparent distress HEENT: Mucous membr. moist/pink Neck: Supple, JVD not distended Respiratory: Clear to auscultation bilaterally, Normal air movement Cardiovascular: No edema, Regular rate/rhythm, Normal S1 S2 Capillary refill: <2 Seconds Gastrointestinal: Normal bowel sounds, Soft and benign, No tenderness Musculoskeletal: No swelling Integumentary: No rashes Neurological: Normal speech, Normal strength at 5/5 x4 extr Laboratory Data at Discharge: WBC 6.3 K/uL (4.3-10.9) 05/30/20 03:28 Hgb 14.5 g/dL (12.0-15.0) 05/30/20 03:28 Hct 42.1 % (36.0-45.0) 05/30/20 03:28 Plt Count 163 K/uL (152-406) D 05/30/20 03:28 Sodium 134 mmol/L (136-145) L 05/30/20 03:28 Potassium 3.2 mmol/L (3.5-5.1) L 05/30/20 03:28 BUN 29 mg/dL (7-18) H 05/30/20 03:28 Creatinine 1.16 mg/dL (0.55-1.3) 05/30/20 03:28 Glucose 114 mg/dL (74-106) H 05/30/20 03:28 Phosphorus 3.0 mg/dL (2.5-4.9) 05/30/20 03:28 Magnesium 1.3 mg/dL (1.8-2.4) L* 05/30/20 03:28 Total Bilirubin 1.7 mg/dL (0.2-1.0) H 05/30/20 03:28 AST 142 U/L (15-37) H 05/30/20 03:28 ALT 45 U/L (12-78) 05/30/20 03:28 Alkaline Phosphatase 70 U/L (45-117) 05/30/20 03:28 Lipase 36 U/L (73-393) L 05/29/20 11:06 Home Medications: Travoprost [Travatan Z*] 1 gtt EACH EYE BEDTIME 05/19/18 Pantoprazole [Protonix Tab*] 40 mg PO ACB #30 tab 05/29/18 Folic Acid 1 mg PO DAILY 05/29/20 Thiamine HCl [B-1] 100 mg PO DAILY #30 tablet 05/30/20 New Medications: Thiamine HCl [B-1] 100 mg PO DAILY #30 tablet Diet: AHA Activity: Ad colin Followup: Unknown,U [Primary Care Provider] -
[2020-05-30 14:45] VITALS: BP 123/58; TEMP 97.6
--- NOTE | 2020-05-31 07:20 | EKG ---
Test Date: 2020-05-29 Test Time: 14:13:02 Reclamation Supervisor: RIO MEASUREMENT RESULTS: Intervals: Rate: 107 MO: 136 QRSD: 78 QT: 382 QTc: 509 [place]: P: 72 MO: 136 QRS: -27 T: 101 INTERPRETIVE STATEMENTS: Sinus tachycardia Nonspecific T wave abnormality Abnormal ECG Compared to ECG 03/10/2020 06:54:49 No significant changes Electronically Signed On 05-31-20 07:17:53 [employer] OPERATIONS MANAGER by Prabhjot Delcid
== END 2020-05-30 13:19 | disposition home or self-care (01) ==
LOC: ER 10:14 → ERHOLD 17:07 → 2ND 22:20
PROVIDERS: ADMIT Hospitalist; ATTEND Internal Medicine
DX: R11.2 Nausea with vomiting, unspecified (principal); R42 Dizziness and giddiness; Z20.828 Contact with and (suspected) exposure to other viral communicable diseases; R94.31 Abnormal electrocardiogram [ECG] [EKG]; F10.20 Alcohol dependence, uncomplicated; K21.9 Gastro-esophageal reflux disease without esophagitis; K76.0 Fatty (change of) liver, not elsewhere classified; Z87.891 Personal history of nicotine dependence; E46 Unspecified protein-calorie malnutrition; Z68.1 Body mass index [BMI] 19.9 or less, adult
CPT/HCPCS: 96361; 93005; 85025 ×2; 80048; 36415; 80320; 83735 ×2; 84100; 84132; 80076; 84443; 84484; 84439; 83690; 80053; 70450; 71250; 74176; 71045; 76705; 97112; 97116; 97161; 94760 ×2; 96375; 96374; 99285; U0003; J1650; J3360; J3475; J7040; J7030; J2405 ×3

== ENCOUNTER 2020-06-17 14:08 | Emergency (ER) | payer OTHER, MEDICARE ==
--- OUTSIDE RECORDS SUMMARY | 2020-06-17 14:10 | XMS REPORT | Clinical Summary ---
:1950 Author Organization [facility] Address [address] [place] [id number] Care Team Providers Name Role Phone Unavailable [...] Rubin, transfer Medicine Smith Monroe MD after 06/17/2019 Social History Tobacco Use Types Packs/Day Years [...] PNEUMOCOCCAL 65+ YRS (1 of 1 - [id number]) 2015 MEDICARE ANNUAL WELLNESS (YEAR 2 [...] are i n the results section. SARS-COV2/RT-PCR ([facility] Routine 03/10/2020 2:27 R esults for this [...] are i n the results section. after 06/17/2019 Results POC-Glucose meter (03/14/2020 12:24 PM CDT)Only the most recent of16 results within the time period is included. POC-Glucose Meter 103Comment: : 70 - 110 mg/dL [facility] [place] [id number] [facility], [id number]: Director Reactor Projects/Technic monique ID = [id number] for EMILY SOLITARIO Specimen Blood Performing Organization Address City/State/Zipcode Phone Number [address] [phone] CENTER CBC with platelet count + automated diff (03/14/2020 5:26 AM CDT)Only the most recent of5 resultswithin the time period is included. Pathologist Sig nature WBC 3.5 3.5 - 10.5 [facility] K/L [facility] RBC 2.79 (L) 3.93 - 5.22 [facility] M/L [facility] Hemoglobin 10.5 (L) 11.2 - 15.7 [facility] GM/DL [facility] Hematocrit 29.2 (L) 34.1 - 44.9 % [facility] MCV 104.7 (H) 79.4 - 94.8 fL [facility] MCH 37.6 (H) 25.6 - 32.2 pg [facility] MCHC 36.0 (H) 32.2 - 35.5 [facility] GM/DL [facility] RDW 14.8 (H) 11.7 - 14.4 % [facility] Platelets 80 (L) 150 - 450 K/CU [facility] MPV 10.5 9.4 - 12.3 fL [facility] nRBC 0 0 - 0 /100 WBC [facility] % Neutros 56 % [facility] % Lymphs 12 % [facility] % Monos 28 % [facility] % Eos 2 % [facility] % Baso 0 % [facility] [place] # Neutros 1.92 1.56 - 6.13 [facility] # Lymphs 0.43 (L) 1.18 - 3.74 [facility] # Monos 0.98 (H) 0.24 - 0.36 [facility] # Eos 0.07 0.04 - 0.36 [facility] # Baso 0.01 0.01 - 0.08 [facility] Immature 1 0 - 1 % [facility] Specimen Blood Performing Organization Address City/[facility] Phone Number [address] [address] CENTER Phosphorus (03/14/2020 5:26 AM CDT)Only the most recent of5 resultswithin the time period is included. Pathologist Sig nature Phosphorus 2.3 2.3 - 4.7 mg/dL [facility] Specimen Blood Narrative Performed At Director Reactor Projects ID - [facility] Performing Organization Address [facility] Phone Number [address] [address] CENTER Magnesium (03/14/2020 5:26 AM CDT)Only the most recent of5 resultswithin the time period is included. Pathologist Sig nature Magnesium 1.6 1.6 - 2.6 mg/dL [facility] Specimen Blood Narrative Performed At Director Reactor Projects ID - [facility] Performing Organization Address City/[facility] Corporation[facility] Phone Number [address] [address] CENTER Comprehensive metabolic panel (03/14/2020 5:26 AM CDT)Only the most recent of5 resultswithin the time period is included. Protein, Total 5.1 (L) 6.0 - 8.3 [facility] gm/dL [facility] Albumin 3.0 (L) 3.5 - 5.0 [facility] g/dL [facility] Alkaline 128 40 - 150 U/L [facility] Phosphatase [facility] Total Bilirubin 2.5 (H) 0.2 - 1.2 [facility] mg/dL [facility] Sodium 132 (L) 136 - 145 [facility] meq/L [facility] Potassium 2.5 (LL) 3.5 - 5.1 [facility] meq/L [facility] Chloride 98 98 - 107 [facility] meq/L [facility] CO2 21 (L) 22 - 29 meq/L [facility] BUN 10 7 - 21 mg/dL [facility] Creatinine 0.55 (L) 0.57 - 1.25 [facility] mg/dL [facility] Glucose 89 70 - 105 [facility] mg/dL [facility] Calcium 7.6 (L) 8.4 - 10.2 [facility] mg/dL [facility] AST 75 (H) 5 - 34 U/L [facility] ALT 64 (H) 6 - 55 U/L [facility] EGFR 109Comment: mL/min/1.73 [facility] ESTIMATED GFR IS sq [facility] NOT ACCURATE MEDICAL CENTER CREATININE CLEARANCE IN PREDICTING GLOMERULAR FILTRATION RATE. ESTIMATED GFR IS NOT APPLICABLE FOR DIALYSIS PATIENTS. Specimen Blood Narrative Performed At Director Reactor Projects ID - EDASI [facility] Performing Organization Address City/State/Zipcode Phone Number [facility] [address] [place] [address] CENTER Potassium (03/12/2020 12:11 PM CDT) Pathologist Sig nature Potassium 3.1 (L)Comment: 3.5 - 5.1 meq/L [facility] Specimen [facility] hemolyzed CENTER Specimen Blood Narrative Performed At Director Reactor Projects ID - JOHN Barfield [facility] Performing Organization Address [facility]/Zipcode Phone Number [address] [address] CENTER Urea Nitrogen, random urine (03/11/2020 2:45 AM CDT) Pathologist Sig nature Urea Nitrogen, Ur 798 mg/dL [facility] Specimen Urine Narrative Performed At Reference Range: No Normals [facility] Director Reactor Projects ID - WIN Gee Performing Organization Address [facility]/Zipcode Phone Number [address] [address] [place] Rapid drug screen, urine (03/11/2020 2:45 AM CDT) Pathologist Sig nature Barbiturate Screen Negative Negative [facility] Benzodiazepine Screen Negative Negative [facility] Cocaine (Metab.) Screen Negative Negative [facility] Methadone Screen Negative Negative [facility] Opiate Screen Negative Negative [facility] Cannabinoid Screen Negative Negative [facility] Amph/Methamph Screen Negative Negative [facility] Phencyclidine Screen Negative Negative [facility] pH, UA 6.0 5.0 - 8.0 [facility] Specimen Urine Narrative Performed At [facility] Cocaine 300 ng/mL Cannabinoid 50 ng/mL Benzodiazepine 200 ng/mL Barbiturate 200 ng/mL Phencyclidine 25 ng/mL Opiate 300 ng/mL Methadone 300 ng/mL Amphetamine/ 1000 ng/mL Methamphetamine This assay provides an unconfirmed qualitative test result for the clinical management of patients in emergency situations. Chain of custody not maintained. Some [id number] medications, as well as adulterants, may cause inaccurate results. Clinical correlation should be applied. A more comprehensive drug screen or confirmation of a detected drug may be performed upon request. Director Reactor Projects ID Reymundo Gee Performing Organization Address City/[facility]/Zipcode Phone Number [address] [address] [place] Sodium, random urine (03/11/2020 2:45 AM CDT) Pathologist Sig nature Sodium Urine 91 meq/L [facility] [place] Specimen Urine Narrative Performed At Reference Range: No Normals [facility] Director Reactor Projects ID Reymundo Gee Performing Organization Address [facility]/Zipcode Phone Number [address] [address] [place] Creatinine, random urine (03/11/2020 2:45 AM CDT) Pathologist Sig nature Creatinine, Ur 47.2 mg/dL [facility] [place] Specimen Urine Narrative Performed At Reference Range: No Normals [facility] Director Reactor Projects ID Reymundo Gee Performing Organization Address [facility] Corporation[facility] Phone Number [address] [address] [place] Urinalysis w/Microscopic + Reflex to Culture (03/11/2020 2:44 AM CDT) Color, UA Yellow [facility] Clarity, UA Clear [facility] Specific [place], 1.018 1.001 - 1.035 [place] [facility] pH, UA 6.0 5.0 - 8.0 [facility] Protein, UA Negative Negative [facility] Glucose, UA Negative Negative [facility] Ketones, UA 10 mg/dL (A) Negative [facility] Bilirubin, UA Negative Negative [facility] Blood, UA Negative Negative [facility] Nitrite, UA Negative Negative [facility] Leukocytes, UA Negative Negative [facility] Urobilinogen, UA 0.2 0.2 - 1.0 mg/dL [facility] RBC, UA 0 /HPF [facility] WBC, UA 1 /HPF [facility] Mucus Rare [facility] Hyaline Casts, UA 1 /LPF [facility] Amorphous Crystals Rare [facility] Specimen Source [facility] Specimen Urine Narrative Performed At Director Reactor Projects ID - [auto] [facility] Director Reactor Projects ID - tech Performing Organization Address City/[facility]/Zipcode Phone Number [address] [address] [place] Osmolality, urine (03/11/2020 2:44 AM CDT) Pathologist Sig nature Osmolality, Ur 630 50-1,200 mOsm/kg [facility] mOsm/kg [facility] Specimen Urine Performing Organization Address City/[facility] Corporationcotx Phone Number [address] [address] [place] Lactic acid, venous (03/10/2020 9:05 PM CDT)Only the most recent of2 results within the time period is included. Lactate, Venous 1.31Comment: 0.50 - 2.20 [facility] Specimen slightly mmol/L [facility] hemolyzed [place] Specimen Blood Narrative Performed At Director Reactor Projects ID - DB [facility] Specimen slightly icteric Performing Organization Address City/[facility]/Zipcode Phone Number [address] [address] [place] Blood Culture - Routine (Right Venipuncture) (03/10/2020 2:42 PM CDT)Only the most recent of2 resultswithin the time period is included. Pathologist Sig nature Result No growth in 5 days [facility] Specimen Blood - Entire right upper arm (body str ucture) Performing Organization Address City/State/Zipcode Phone Number [facility] [address] [place] [address] CENTER SARS-CoV2/RT-PCR (Asymptomatic ONLY) (03/10/2020 2:27 PM CDT) SARS-COV2/RT-PCR Negative Not Detected, ROSHAN TYLER Negative, See [facility] external report CENTER for linked test SARS-COV-2 [facility] GONZALO [facility] PERFORMING LAB [facility] Specimen Other - Nasopharyngeal wall structure (b kala structure) Narrative Performed At Negative result for this test determines that [facility] SARS-CoV-2 RNA was not present in [...] duct/documents/Fact_Sheet_HC_Providers_Lyra_SA RS-CoV-2.pdf Fact Sheet for Healthcare Patients: https://www.Captricity/sites/default/files/pro duct/documents/Fact_Sheet_Patients_Lyra_SARS-C oV-2.pdf Performing Laboratory: [address] [address] Performing Organization Address [facility] Phone Number [address] [phone] [place] Calcium, Ionized (03/10/2020 2:19 PM CDT) Pathologist Sig nature Calcium, Ion 1.05 (L) 1.12 - 1.27 mmol/L [facility] pH, Blood 7.33 [facility] Specimen Blood Performing Organization Address [facility] Number [address] [address] [place] Procalcitonin (03/10/2020 2:16 PM CDT) Pathologist Sig nature Procalcitonin 1.40 (H) <0.05 ng/mL [facility] Specimen Blood Narrative Performed At SEPSIS RISK (ng/mL) [facility] Low: 0.05-0.50 Intermediate: 0.51-2.00 High: >=2.01 Performing Organization Address [facility] Number [address] [address] CENTER Cortisol (03/10/2020 2:16 PM CDT) Pathologist Sig nature Cortisol, Total 58.2 (H) 3.7 - 19.4 ug/dL [facility] Specimen Blood Narrative Performed At Director Reactor Projects NEAL Barfield [facility] Performing Organization Address [facility] Phone Number [address], [place] [phone] CENTER TSH/Free T4 If Indicated (03/10/2020 2:16 PM CDT) Pathologist Sig nature TSH 0.299 (L) 0.350 - 4.940 uIU/mL [facility] Specimen Blood Narrative Performed At Director Reactor Projects ID - ALIDA B [facility] Performing Organization Address City/[facility] Corporationcode Phone Number [address] [address] CENTER PT/aPTT (03/10/2020 2:16 PM CDT) Pathologist Sig nature Protime 18.0 (H) 11.9 - 14.2 seconds [facility] INR 1.53 <=5.90 [facility] PTT 32.1 22.5 - 36.0 seconds [facility] Specimen Blood Narrative Performed At Effective 12/09/2018: PT Reference Range [facility] Change New: 11.9-14.2 Previous: 11.7-14.7 RECOMMENDED COUMADIN/WARFARIN INR THERAPY RANGES STANDARD DOSE: 2.0-3.0 Includes: PROPHYLAXIS for venous thrombosis, systemic embolization; TREATMENT for venous thrombosis and/or pulmonary embolus. HIGH RISK: Target INR is 2.5-3.5 for patients wiht mechanical heart valves. Performing Organization Address City/[facility] Phone Number [address] [address] CENTER Troponin I (03/10/2020 2:16 PM CDT) Pathologist Sig nature Troponin I 0.04 (H) 0.00 - 0.03 ng/mL [facility] Specimen Blood Narrative Performed At Troponin I (TnI) levels must be interpreted [facility] in the context of the presenting [...] acidosis, acute neurological disease, and persistent tachyarrhythmia. Director Reactor Projects ID - JOHN Barfield Performing Organization Address City/[facility] Corporation[facility] Phone Number [address] [address] CENTER Hepatitis panel, acute (03/10/2020 2:16 PM CDT) Pathologist Sig nature Hep A IgM Nonreactive Nonreactive [facility] Hep B C IgM Nonreactive Nonreactive [facility] Hepatitis C Ab Nonreactive Nonreactive [facility] HBsAg Screen Nonreactive Nonreactive [facility] Specimen Blood Narrative Performed At Director Reactor Projects ID - DB [facility] Performing Organization Address [facility] Corporation[facility] Phone Number [address] [address] [place] Fibrinogen (03/10/2020 2:16 PM CDT) Pathologist Sig nature Fibrinogen 115 (L) 225 - 434 mg/dl [facility] Specimen Blood Performing Organization Address [facility] Corporation[facility] Phone Number [address] [address] CENTER Triglycerides (03/10/2020 2:16 PM CDT) Pathologist Sig nature Triglycerides 220 mg/dL [facility] Specimen Blood Narrative Performed At [facility]IG[facility]ER[facility] Low Risk <150 Borderline Risk 150-199 High Risk 200-499 Very High Risk >=500 Director Reactor Projects ID - JOHN Barfield Specimen slightly icteric Performing Organization Address [facility] Corporation[facility] Phone Number [address] [address] CENTER T4, free (03/10/2020 2:16 PM CDT) Pathologist Sig nature Free T4 1.00 0.70 - 1.48 ng/dL [facility] Specimen Blood Narrative Performed At Director Reactor Projects ID - DB [facility] Performing Organization Address [facility] Corporation[facility] Phone Number [address] [address] [place] Osmolality, serum (03/10/2020 2:16 PM CDT) Pathologist Sig nature Osmolality Serum 287 275 - 295 mOsm/kg [facility] Specimen Blood Performing Organization Address [facility] Corporation[facility] Phone Number [address] [address] CENTER B-type Natriuretic Factor (BNP) (03/10/2020 2:16 PM CDT) Pathologist Sig nature BNP 154 (H) 0 - 100 pg/mL [facility] Specimen Blood Narrative Performed At Director Reactor Projects ID - JOHN C [facility] Performing Organization Address [facility] Phone Number [address] [address] CENTER Lipase (03/10/2020 2:16 PM CDT) Pathologist Sig nature Lipase 689 (H) 8 - 78 U/L [facility] Specimen Blood Narrative Performed At Director Reactor Projects ID - JOHN C [facility] Specimen slightly icteric Performing Organization Address [facility] Corporation[facility] Phone Number [address] [address] CENTER Blood gas, venous (03/10/2020 2:16 PM CDT) Pathologist Sig nature pH, Rito 7.33 7.32 - 7.42 [facility] pCO2, Rito 44 41 - 51 mmHg [facility] pO2, Rito 30 25 - 40 mmHg [facility] O2 Sat, Rito 52.3 40.0 - 70.0 % [facility] HCO3, Rito 23 21 - 29 mmol/L [facility] Base Excess, Rito -3.3 (L) -2.0 - 3.0 [facility] mmol/L [facility] Patient Temperature 37.0 C [facility] FIO2 21.0 % [facility] Specimen Blood Performing Organization Address City/State/Zipcode Phone Number [address] [address] CENTER Amylase (03/10/2020 2:16 PM CDT) Pathologist Sig nature Amylase 397 (H) 25 - 125 U/L [facility] Specimen Blood Narrative Performed At Director Reactor Projects ID - JOHN C [facility] Specimen slightly icteric Performing Organization Address City/[facility] Corporation[facility] Phone Number [address] [address] CENTER Ammonia (03/10/2020 2:16 PM CDT) Pathologist Sig nature Ammonia 40Comment: Specimen 18 - 72 mol/L [facility] slightly hemolyzed [facility] Specimen Blood Narrative Performed At Director Reactor Projects ID - JOHN C [facility] Performing Organization Address City/State/[facility] Corporation[facility] Phone Number [address] [address] CENTER after 06/17/2019
--- OUTSIDE RECORDS SUMMARY | 2020-06-17 14:13 | XMS REPORT | Continuity of Care Document ---
:1950 Author Organization [facility] t Address [address] [place] [address] Care Team Providers Name Role Phone FER ESPARZA Attending Clinician Unavailable Fer Esparza MD Attending Clinician [phone] Paola Ramírez MD Attending Clinician [phone] PAOLA RAMÍREZ Admitting Clinician Unavailable Payers Payer Name Policy Type Policy Effective Date Expiration Date Sour ce Number MEDICAREMEDICARE A [id number] 2015 ROSHAN Dorantes t Micki [id number] 2014-P 00:00:00 - [facility] Center Problems Condition Condition Condition Status Onset Resolution [...] 03-10 [facility] Allergies, Adverse Reactions, Alerts Allergy Allergy Status Severity Reaction(s) Onset Inactive Treating Comm ents Source Name Type Date Date Clinician Hydrocod Drug Active [facility] one-Acet Allergy 03-10 [facility] Imitrex Adverse Active Info Not [facility] Reaction Available [facility] Geraldine Adverse Active Info Not [facility] Reaction Available [facility] Social History Social Habit Start Date Stop Date Quantity Comments Source Sex Assigned At [facility] Medications Ordered Filled Start Stop Current Ordering Indication Dosage Frequency Signature Comments Components Source Medication Medication Date Date Medication? Clinician (SIG) Name Name Cefdinir Cefdinir 2019- Carin as [facility] St 02-27 [place] directed [facility]: [facility]:00 Memoria 00 :00 [facility] Vital Signs Vital Name Observation Time Observation Value Comments Source Systolic blood 2020-03-14 12:22:00 138 mm[Hg] [facility] Diastolic blood 2020-03-14 12:22:00 63 mm[Hg] [facility] Heart rate 2020-03-14 12:22:00 77 /min [facility] Body temperature 2020-03-14 12:22:00 36.17 Stella [facility] Respiratory rate 2020-03-14 12:22:00 18 /min [facility] Oxygen saturation in 2020-03-14 12:22:00 99 /min [facility] Arterial blood by Medical Ce nter Pulse oximetry Body weight 2020-03-10 14:00:00 59.9 kg [facility] Procedures Procedure Date / Time Performed Performing Clinician Dewayne rhodes POCT-GLUCOSE METER 2020-03-14 12:24:00 [facility] POCT-GLUCOSE METER 2020-03-14 05:37:00 [facility] COMPREHENSIVE METABOLIC 2020-03-14 05:26:00 Shani [facility] MAGNESIUM 2020-03-14 05:26:00 Shani [facility] PHOSPHORUS 2020-03-14 05:26:00 Shani [facility] CBC W/PLT COUNT & AUTO 2020-03-14 05:26:00 Madi Mcleod [facility] t [facility] DIFFERENTIAL [facility] POCT-GLUCOSE METER 2020-03-13 23:47:00 [facility] POCT-[facility]UCOSE METER 2020-03-13 14:07:00 [facility] POCT-GLUCOSE METER 2020-03-13 12:28:00 [facility] COMPREHENSIVE METABOLIC 2020-03-13 07:33:00 [facility] 2020-03-13 07:33:00 Shani, Madi [facility] PHOSPHORUS 2020-03-13 07:33:00 [facility] POCT-GLUCOSE METER 2020-03-13 07:24:00 [facility] POCT-GLUCOSE METER 2020-03-13 06:52:00 [facility] CBC W/PLT COUNT & AUTO 2020-03-13 05:56:00 Madi Mcleod [facility] S t kes [facility] POCT-GLUCOSE METER 2020-03-12 16:01:00 [facility] PO[facility]SE METER 2020-03-12 12:56:00 [facility] POTASSIUM 2020-03-12 12:11:00 [facility] POCT-GLUCOSE METER 2020-03-12 08:41:00 [facility] COMPREHENSIVE METABOLIC 2020-03-12 03:12:00 Shani, Madi [facility] MAGNESIUM 2020-03-12 03:12:00 Shani, Madi [facility] PHOSPHORUS 2020-03-12 03:12:00 [facility] CBC W/PLT COUNT & AUTO 2020-03-12 03:12:00 Madi Mcleod [facility] S t [facility] DIFFERENTIAL [facility] POCT-GLUCOSE METER 2020-03-11 19:41:00 Brieut [facility] POCT-GLUCOSE METER 2020-03-11 17:59:00 [facility] POCT-GLUCOSE METER 2020-03-11 12:18:00 Gadicherut [facility] POCT-GLUCOSE METER 2020-03-11 05:34:00 Odilia Rubin [facility] COMPREHENSIVE METABOLIC 2020-03-11 04:42:00 [facility] PANEL [facility] MAGNESIUM 2020-03-11 04:42:00 Shani, [facility] PHOSPHORUS 2020-03-11 04:42:00 Shani [facility] CBC W/PLT COUNT & AUTO 2020-03-11 04:42:00 Shani [facility] t [facility] DIFFERENTIAL [facility] RAPID DRUG SCREEN, URINE 2020-03-11 02:45:00 [facility] SODIUM, RANDOM URINE 2020-03-11 02:45:00 [facility] CREATININE, RANDOM URINE 2020-03-11 02:45:00 [facility] UREA NITROGEN, RANDOM 2020-03-11 02:45:00 [facility] URINE [facility] URINALYSIS W/ REFLEX 2020-03-11 02:44:00 [facility] URINE CULTURE [facility] OSMOLALITY, URINE 2020-03-11 02:44:00 [facility] POCT-GLUCOSE METER 2020-03-11 00:48:00 Odilia Rubin [facility] LACTIC ACID, VENOUS 2020-03-10 21:05:00 [facility] PO[facility]SE METER 2020-03-10 17:59:00 Odilia Rubin [facility] BLOOD CULTURE 2020-03-10 14:42:00 Shani [facility] SARS-COV2/RT-PCR ([facility] & 2020-03-10 14:27:00 Shani, [facility] - REF LABS) [facility] CALCIUM, IONIZED 2020-03-10 14:19:00 [facility] BLOOD [facility]ULT[facility] 2020-03-10 14:16:00 [facility] COMPREHENSIVE METABOLIC 2020-03-10 14:16:00 Shani [facility] PANEL [facility] MAGNESIUM 2020-03-10 14:16:00 [facility] PHOSPHORUS 2020-03-10 14:16:00 Shani, [facility] B-TYPE NATRIURETIC FACTOR 2020-03-10 14:16:00 ShaniMadi matson [facility] (BNP) [facility] LIPASE 2020-03-10 14:16:00 [facility] AMYLASE 2020-03-10 14:16:00 [facility] TRIGLYCERIDES 2020-03-10 14:16:00 Shani [facility] PT/APTT 2020-03-10 14:16:00 [facility] FIBRINOGEN 2020-03-10 14:16:00 [facility] BLOOD GAS, VENOUS 2020-03-10 14:16:00 Shani [facility] AMMONIA 2020-03-10 14:16:00 [facility] TROPONIN I 2020-03-10 14:16:00 [facility] HEPATITIS PANEL, ACUTE 2020-03-10 14:16:00 [facility] LACTIC ACID, VENOUS 2020-03-10 14:16:00 [facility] PROCALCITONIN 2020-03-10 14:16:00 [facility] OSMOLALITY, SERUM 2020-03-10 14:16:00 [facility] TSH/FREE T4 IF INDICATED 2020-03-10 14:16:00 [facility] CORTISOL 2020-03-10 14:16:00 [facility] T4, FREE 2020-03-10 14:16:00 [facility] CBC W/PLT COUNT & AUTO 2020-03-10 14:16:00 [facility] Plan of Care Planned Activity Planned Date [...] [facility] ([facility] of - Medical Center [id number] PCV13) [code = PNEUMOCOCCAL 65+ YRS (1 of - [id number]_Ggodpfj PCV13)] Future Scheduled [address] [facility] es - Test 00:00:00 malignant neoplasm of [facility] breast (procedure) [code = 397791189] Future Scheduled [address] [facility] - Test 00:00:00 malignant neoplasm of [facility] colon (procedure) [code = 719123002] Encounters Start End Encounter Admission Attending Care Care Encounter Source Date/Time Date/Time Type Type Clinicians Facility Department ID 2020-06-06 2020-06-06 Outpatient [facility] [id number] [facility] 2020-06-06 2020-06-06 Outpatient [facility] [id number] [facility] 2020-02-28 2020-02-28 [facility] [id number] 09:52:00 09:52:00 t Specialty/U Yareli kes - Specialty rology Memori [facility] /Urology Clinic l Clinic Outpati ent Clinics 2020-02-25 2020-02-25 [facility] [id number] 11:00:00 11:00:00 t Specialty/U Yareli kes - Specialty rology Memori a /Urology Clinic l Clinic Outpati ent Clinics 2019-12-29 2019-12-29 [facility] [id number] 10:02:00 10:02:00 t Specialty/U Yareli kes - Specialty rology Mem[facility] /Urology Clinic l Clinic Outpati ent Clinics 2019-12-29 2019-12-29 [facility] [id number] 10:02:00 10:02:00 t Specialty/U Yareli kes - Specialty rology Memori a /Urology Clinic l Clinic Outpati ent Clinics 2019-12-13 2019-12-13 [facility] [id number] 11:00:00 11:00:00 t Specialty/U Yareli kes - Specialty rology Memori a /Urology Clinic l Clinic Outpati ent Clinics 2019-12-13 2019-12-13 [facility] [id number] 08:52:00 08:52:00 t Specialty/U Yareli kes - Specialty rology Memori a /Urology Clinic l Clinic Outpati ent Clinics 2019-10-14 2019-10-14 [facility] [id number] 11:03:00 11:03:00 t Specialty/U Yareli kes - Specialty rology Memori a /Urology Clinic l Clinic Outpati ent Clinics 2019-10-12 2019-10-12 [facility] [id number] 13:32:00 13:32:00 t Specialty/U Yareli kes - Specialty rology Memori a /Urology Clinic l Clinic Outpati ent Clinics 2019-08-30 2019-08-30 [facility] [id number] 11:46:00 11:46:00 t [facility] Medicine l Medicine Outpati ent Clinics 2019-08-22 2019-08-22 [facility] [id number] 12:35:00 12:35:00 t [facility] Medicine l Medicine Outpati ent Clinics 2019-08-18 2019-08-18 [facility] [id number] 10:45:00 10:45:00 t [facility] Medicine l Medicine Outpati ent Clinics 2019-06-21 2019-06-21 [facility] [id number] 10:00:00 10:00:00 t Specialty/U Yareli kes - Specialty rology Memori a /Urology Clinic l Clinic Outpati ent Clinics 2019-06-01 2019-06-01 [facility] [id number] 10:00:00 10:00:00 t [facility] Medicine Outpati ent Clinics 2019-05-18 2019-05-18 [facility] [id number] 10:40:00 10:40:00 t [facility] Medicine Outpati ent Clinics 2019-04-19 2019-04-19 [facility] [id number] 23:36:00 23:36:00 t [facility] Medicine Medicine Outpati ent Clinics 2019-04-03 2019-04-03 [facility] [id number] 04:57:00 04:57:00 t [facility] Medicine Outpati ent Clinics 2019-03-17 2019-03-17 [facility] [id number] 21:43:00 21:43:[address] [place] Medicine Medicine Outpati ent Clinics 2019-03-17 2019-03-17 [facility] [id number] 10:40:00 10:40:00 t [facility] Medicine Outpati ent Clinics 2019-03-08 2019-03-08 [facility] [id number] 15:04:00 15:04:00 t [facility] Medicine Outpati ent Clinics 2019-03-01 2019-03-01 [facility] [id number] 20:32:00 20:32:00 t [facility] Medicine Outpati ent Clinics 2019-02-26 2019-02-26 [facility] [id number] 16:08:00 16:08:00 t [facility] Medicine Outpati ent Clinics 2019-02-22 2019-02-22 [facility] [id number] 08:19:00 08:19:00 t [facility] Medicine Outpati ent Clinics 2019-02-15 2019-02-15 [facility] [id number] 09:20:00 09:20:00 t [facility] Medicine Outpati ent Clinics 2019-01-18 2019-01-18 [facility] [id number] [facility] 10:00:00 10:00:00 t Specialty/U Yareli kes - Specialty rology Memori a /Urology Clinic l Clinic Outpati ent Clinics 2018-09-02 2018-09-02 [facility] [id number] 10:45:00 10:45:00 t [facility] Medicine Outpati ent Clinics 2018-07-21 2018-07-21 [facility] [id number] [facility] 09:30:00 09:30:00 t Specialty/U Yareli kes - Specialty rology Memori a /Urology Clinic l Clinic Outpati ent Clinics 2018-03-11 2018-03-11 [facility] [id number] 09:30:00 09:30:00 t Specialty/U Yareli kes - Specialty rology Memori a /Urology Clinic l Clinic Outpati ent Clinics 2018-02-19 2018-02-19 [facility] [id number] 09:00:00 09:00:00 t Specialty/U Yareli kes - Specialty rology Memori a /Urology Clinic l Clinic Outpati ent Clinics 2018-01-16 2018-01-16 [facility] [id number] 15:30:00 15:30:00 t Specialty/U Yareli kes - Specialty rology Memori a /Urology Clinic l Clinic Outpati ent Clinics 2017-12-25 2017-12-25 [facility] [id number] 10:38:00 10:38:00 t Specialty/U Yareli kes - Specialty rology Memori a /Urology Clinic l Clinic Outpati ent Clinics 2017-12-24 2017-12-24 [facility] [id number] 09:52:00 09:52:00 t Specialty/U Yareli kes - Specialty rology Memori a /Urology Clinic l Clinic Outpati ent Clinics 2017-12-11 2017-12-11 [facility] [id number] 09:30:00 09:30:00 t Specialty/U Yaerli kes - Specialty rology Memori a /Urology Clinic l Clinic Outpati ent Clinics 2017-12-09 2017-12-09 [facility] [id number] 09:35:00 09:35:00 t Specialty/U Yareli kes - Specialty rology Memori a /Urology Clinic l Clinic Outpati ent Clinics 2017-11-20 2017-11-20 [facility] [id number] 09:00:00 09:00:00 t Specialty/U Yareli kes - Specialty rology Memori a /Urology Clinic l Clinic Outpati ent Clinics 2017-11-06 2017-11-06 [facility] [id number] 10:05:00 10:05:00 t Specialty/U Yareli kes - Specialty rology Memori a /Urology Clinic l Clinic Outpati ent Clinics 2017-11-06 2017-11-06 [facility] [id number] 09:12:00 09:12:00 t Specialty/U Yareli kes - Specialty rology Memori a /Urology Clinic l Clinic Outpati ent Clinics 2017-11-04 2017-11-04 Outpatient Yanni Young [id number] 09:45:00 09:45:00 t Specialty/U Yareli kes - Specialty rology Memori a /Urology Clinic l Clinic Outpati ent Clinics 2017-10-20 2017-10-20 Outpatient Yanni Liaot [id number] [facility] 08:45:00 08:45:00 t [facility] Results Test Description Test Time Test Comments Results Result Comments Source Blood Culture - Routine (Right Venipuncture) 2020-03-15 17:0 0:00 Test Item Value Reference Range Interpretation Comme nts Result (test code = 6463-4) No growth in 5 days [facility] [id number] 17:00:00 Test Item Value Reference Range Interpretation Comments CULTURE (BEAKER) (test No growth in 5 days code = 1095) BLOOD [id number] 15:00:00 Test Item Value Reference Range Interpretation Comments CULTURE (BEAKER) (test No growth in 5 days code = 1095) POC-Glucose [id number] 12:35:00 Test Item Value Reference Range Interpretation Comments POC-Glucose Meter (test 103 mg/dL 70-110 : TE STED AT [facility] code = 1538) [address] [facility], 770 30: [employer] Worker/Techni benjamin ID = [id number] for KASSI EMILY Lab Interpretation (test Normal code = 36331-8) [facility] [id number] 12:35:00 Test Item Value Reference Range Interpretation Comments POC-GLUCOSE METER 103 mg/dL 70-110 : TESTED A T [facility] 6720 (BEAKER) (test code = SHABBIR Jiménez [facility], 1538) 81269: [employer] Worker/Techni benjamin ID = [id number] for LA GROGWEN EMILY CBC with platelet count + automated [id number] 06:54:00 Test Item Value Reference Range Interpretation [...] K/CU MM L MPV (test code = 52960-1) 10.5 fL 9.4-12.3 nRBC (test code = [...] 2801) Lab Interpretation (test code = Abnormal 14393-5) [facility] W/PLT COUNT & AUTO [id number] 06:54:00 Test Item Value Reference Range Interpretation [...] (BEAKER) (test code = 2801) Comprehensive metabolic [id number] 06:45:00 Test Item Value Reference Range Interpretation Comments Protein, Total (test 5.1 6.0- 8.3 gm/dL L code = 2885-2) Albumin (test code = 3.0 g/dL 3.5-5 L 96772-4) Alkaline Phosphatase 128 U/L 40-150 (test code = 6768-6) Total Bilirubin (test 2.5 mg/dL 0.2-1.2 H code = 1974-2) Sodium (test code = 132 meq/L 136-145 [...] (test code = 7.6 mg/dL 8.4-10.2 L 00660-8) AST (test code = 75 U/L 5-34 H 1920-8) ALT (test code = 64 U/L 6-55 H 1742-6) EGFR (test code = 109 mL/min/1.73 [place] [address]-8) NOT ACCURATE CREATININE CLEARANCE IN PREDICTING GLOMERULAR FILTRATION RATE . ESTIMATED GFR I S NOT APPLICABLE FOR DIALYSIS PATIENTS. MICHAEL (test code = MICHAEL) [employer] Worker ID - EDASI Lab Interpretation Abnormal (test code = 17786-2) [facility] [id number] 06:45:00 Test Item Value Reference Range Interpretation [...] S NOT APPLICABLE FOR DIALYSIS PATIEN TS. [employer] Worker ID - [id number] 06:34:00 Test Item Value Reference Range Interpretation Comments Magnesium (test code = 1.6 mg/dL 1.6-2.6 38030-0) MICHAEL (test code = MICHAEL) [employer] Worker ID - EDASI Lab Interpretation (test Normal code = 91315-0) [facility] 06:34:00 Test Item Value Reference Range Interpretation Comments Phosphorus (test code = 2.3 mg/dL 2.3-4.7 2777-1) MICHAEL (test code = MICHAEL) [employer] Worker ID - EDASI Lab Interpretation (test Normal code = 73036-0) [facility]2020-09-01 06:34:00 Test Item Value Reference Range Interpretation Comments PHOSPHORUS (BEAKER) (test code = 2.3 mg/dL 2.3-4.7 604) [employer] Worker ID - [id number] 06:34:00 Test Item Value Reference Range Interpretation Comments MAGNESIUM (BEAKER) (test code = 1.6 mg/dL 1.6-2.6 627) [employer] Worker ID - EDASIPOCT-GLUCOSE [id number] 05:48:00 Test Item Value Reference Range Interpretation Comments POC-GLUCOSE METER 86 mg/dL 70-110 : TESTED A T [facility] 6720 (BEAKER) (test code = [facility], 1538) 37965: [employer] Worker/Techni benjamin ID = [id number] for SAND ERS, KRAIG POCT-GLUCOSE [id number] 23:58:00 Test Item Value Reference Range Interpretation Comments POC-GLUCOSE METER 94 mg/dL 70-110 : TESTED A T [facility] 6720 (BEAKER) (test code = [facility], 1538) 82408: [employer] Worker/Techni benjamin ID = [id number] for SAND ERS, KRAIG POCT-GLUCOSE [id number] 14:18:00 Test Item Value Reference Range Interpretation Comments POC-GLUCOSE METER 93 mg/dL 70-110 : TESTED A T [facility] 6720 (BEAKER) (test code = [facility], 1538) 74222: [employer] Worker/Techni benjamin ID = [id number] for Sylvia Owens POCT-GLUCOSE [id number] 12:42:00 Test Item Value Reference Range Interpretation Comments POC-GLUCOSE METER 96 mg/dL 70-110 : TESTED A T [facility] 6720 (BEAKER) (test code = [facility], 1538) 65874: [employer] Worker/Techni benjamin ID = [id number] for Paco Alcantara [id number] 08:22:00 Test Item Value Reference Range Interpretation Comments PHOSPHORUS (BEAKER) (test code = 1.3 mg/dL 2.3-4.7 LL 604) [employer] Worker ID - PIAYA LCOMPREHENSIVE METABOLIC [id number] 08:21:00 Test Item Value Reference Range Interpretation [...] S NOT APPLICABLE FOR DIALYSIS PATIEN TS. [employer] Worker ID - PIAYA [id number] 08:16:00 Test Item Value Reference Range Interpretation Comments MAGNESIUM (BEAKER) (test code = 1.3 mg/dL 1.6-2.6 L 627) [employer] Worker ID - PIAYA LCBC W/PLT COUNT & AUTO [id number] 07:59:00 Test Item Value Reference Range Interpretation [...] PERCENT (BEAKER) (test code = 2801) POCT-GLUCOSE [id number] 07:35:00 Test Item Value Reference Range Interpretation Comments POC-GLUCOSE METER 98 mg/dL 70-110 : TESTED A T [facility] 6720 (BEAKER) (test code = [facility] [employer] [facility], 1538) 90490: [employer] Worker/Techni benjamin ID = [id number] for Edson Gerardo POCT-GLUCOSE [id number] 07:03:00 Test Item Value Reference Range Interpretation Comments POC-GLUCOSE METER 103 mg/dL 70-110 : TESTED A T [facility] 6720 (BEAKER) (test code = [facility] [employer] [facility], 1538) 58379: [employer] Worker/Techni benjamin ID = [id number] for Jaimee Mccoy POCT-GLUCOSE [id number] 16:13:00 Test Item Value Reference Range Interpretation Comments POC-GLUCOSE METER 110 mg/dL 70-110 : TESTED A T [facility] 6720 (BEAKER) (test code = [facility], 1538) 05581: [employer] Worker/Techni benjamin ID = [id number] for Marietta Ramirez POCT-GLUCOSE [id number] 13:14:00 Test Item Value Reference Range Interpretation Comments POC-GLUCOSE METER 127 mg/dL 70-110 H : TESTED A T [facility] 6720 (BEAKER) (test code = [facility], 1538) 48947: [employer] Worker/Techni benjamin ID = [id number] for Marietta Ramirez [id number] 12:48:00 Test Item Value Reference Range Interpretation Comments Potassium (test code = 3.1 meq/L 3.5-5.1 L Speci men 2823-3) slightly hemolyzed MICHAEL (test code = MICHAEL) [employer] Worker ID - JOHN C Lab Interpretation Abnormal (test code = 63924-9) [facility] 12:48:00 Test Item Value Reference Range Interpretation Comments POTASSIUM (BEAKER) 3.1 meq/L 3.5-5.1 L Specimen slightly (test code = 379) hemolyzed [employer] Worker ID - JOHN CPOCT-GLUCOSE [id number] 08:55:00 Test Item Value Reference Range Interpretation Comments POC-GLUCOSE METER 148 mg/dL 70-110 H : TESTED A T [facility] 6720 (BEAKER) (test code = [facility], 153) 55472: [employer] Worker/Techni benjamin ID = [id number] for Katharina Ramireza COMPREHENSIVE METABOLIC [id number] 04:19:00 Test Item Value Reference Range Interpretation [...] S NOT APPLICABLE FOR DIALYSIS PATIEN TS. [employer] Worker ID - RYAN LSpecimen slightly [id number] 04:19:00 Test Item Value Reference Range Interpretation Comments PHOSPHORUS (BEAKER) (test code = 1.5 mg/dL 2.3-4.7 LL 604) [employer] Worker ID - RYAN [id number] 04:16:00 Test Item Value Reference Range Interpretation Comments MAGNESIUM (BEAKER) (test code = 1.7 mg/dL 1.6-2.6 627) [employer] Worker ID - RYAN LCBC W/PLT COUNT & AUTO [id number] 03:32:00 Test Item Value Reference Range Interpretation [...] PERCENT (BEAKER) (test code = 2801) POCT-GLUCOSE [id number] 19:52:00 Test Item Value Reference Range Interpretation Comments POC-GLUCOSE METER 122 mg/dL 70-110 H : TESTED A T [facility] 6720 (BEAKER) (test code = [facility] [place], 1538) 89611: [employer] Worker/Techni benjamin ID = [id number] for Jaimee Mccoy POCT-GLUCOSE [id number] 18:10:00 Test Item Value Reference Range Interpretation Comments POC-GLUCOSE METER 115 mg/dL 70-110 H : TESTED A T [facility] 6720 (BEAKER) (test code = SHABBIR CHAN AR, 1538) [address]: [employer] Worker/Techni benjamin ID = [id number] for BONI HDZ SARS-CoV2/RT-PCR (Asymptomatic ONLY)2020-03-11 14:46:00 Test Item Value Reference Range Interpretation Comments SARS-COV2/RT-PCR Negative Not Detected, (test code = Negative, See 85123-8) external report for linked test SARS-COV-2 [facility] GONZAL[facility] PERFORMING LAB (test code = 65859-9) MICHAEL (test code = Negative result for [...] of the Act. Fact Sheet for Healthcare Providers:https://www.[employer]/sites/default/f riley/product/documents/F act_Sheet_HC_Providers_L rrv_XBZF-NnE-9.pdf Fact Sheet for Healthcare Patients:https://www.[employer]/sites/default/fi les/product/documents/Fa ct_Sheet_Patients_Lyra_S ARS-CoV-2.pdf Performing Laboratory:[facility] [place] [address] [facility]OV[facility] ([facility])2020-03-11 14:46:00 Test Item Value Reference Range Interpretation Comments SARS-COV2/RT-PCR (test Negative Not Detected, Negative, code = 8752020) See external report for linked test SARS-COV-2 PERFORMING LAB [facility] GON[facility]AL[facility] (test code = 3321760) Negative result for this test determines that [...] 564(g) of the Act.Fact Sheet for Healthcare Providers:https://www.[employer]/sites/default/files/product/documents/Fact_Shee s_FI_Wdzshjhaw_Yiwv_USYV-GjS-9.pdfFact Sheet for Healthcare Patients:https://www.[employer]/sites/default/files/product/ documents/Mrnj_Ssgxa_Gkuualeu_Xyah_JHSU-UdO-2.pdfPerforming Laboratory:[place] [address], [place] [address]NYVK-HNTAUIS METER 2020-03-11 12:29:00 Test Item Value Reference Range Interpretation Comments POC-GLUCOSE METER 117 mg/dL 70-110 H : TESTED A T [facility] 6720 (BEAKER) (test code = SHABBIR Jiménez [facility], 1538) [address]: [employer] Worker/Techni benjamin ID = [id number] for RA MOS, BONI [id number] 06:39:00 Test Item Value Reference Range Interpretation Comments MAGNESIUM (BEAKER) 1.8 mg/dL 1.6-2.6 Specimen slightly (test code = 627) hemolyzed [employer] Worker ID - PIAYA [id number] 06:39:00 Test Item Value Reference Range Interpretation Comments PHOSPHORUS (BEAKER) 2.1 mg/dL 2.3-4.7 L Specimen slightly (test code = 604) hemolyzed [employer] Worker ID - PIAYA LCOMPREHENSIVE METABOLIC [id number] 06:39:00 Test Item Value Reference Range Interpretation [...] S NOT APPLICABLE FOR DIALYSIS PATIEN TS. [employer] Worker ID - PIAYA LSpecimen slightly ictericCBC W/PLT COUNT & AUTO [id number] 05:56:00 Test Item Value Reference Range Interpretation [...] PERCENT (BEAKER) (test code = 2801) POCT-GLUCOSE [id number] 05:51:00 Test Item Value Reference Range Interpretation Comments POC-GLUCOSE METER 114 mg/dL 70-110 H : TESTED A T [facility] 6720 (BEAKER) (test code = SHABBIR CHAN AR, 1538) [address]: [employer] Worker/Techni benjamin ID = [id number] for TRAVON REYES Rapid drug screen, [id number] 04:12:00 Test Item Value Reference Range Interpretation Comments Barbiturate Screen Negative Negative (test code = 54867-4) Benzodiazepine Screen Negative Negative (test code = 52630-4) Cocaine (Metab.) Negative Negative Screen (test code = 3397-7) Methadone Screen (test Negative Negative code = 44300-1) Opiate Screen (test Negative Negative code = 18833-3) Cannabinoid Screen Negative Negative (test code = 35601-9) Amph/Methamph Screen Negative Negative (test code = 11388-8) Phencyclidine Screen Negative Negative (test code = 16601-7) pH, UA (test code = 6.0 5.0-8.0 5803-2) MICHAEL (test code = MICHAEL) DRUG CUTOFF CONC.Cocaine 300 ng/mL Cannabinoid 50 ng/mLBenzodiazepine 200 ng/mLBarbiturate 200 ng/mLPhencyclidine 25 ng/mLOpiate 300 ng/mLMethadone 300 ng/mLAmphetamine/ 1000 ng/mL Methamphetamine This assay provides an unconfirmed qualitative test result for the clinical management of patients in emergency situations. Chain of custody not maintained. Some xvgn-dbj-twuraij medications, as well as adulterants, may cause inaccurate results. Clinical correlation should be applied. A more comprehensive drug screen or confirmation of a detected drug may be performed upon request.[employer] Worker ID - WIN M Lab Interpretation Normal (test code = 60649-6) [facility] SCREEN, [id number] 04:12:00 Test Item Value Reference Range Interpretation [...] situations. Chain of custody not maintained. Some qtsr-zly-shdjtpl medications, as well as adulterants, may cause inaccurate results. Clinical correlation should be applied. A more comprehensivedrug screen or confirmation of a detected drug may be performed upon request.[employer] Worker ID - WIN MUrinalysis w/Microscopic + Reflex to [id number] 04:06:00 Test Item Value Reference Range Interpretation Comments Color, UA (test code = Yellow 5778-6) Clarity, UA (test code = Clear 5767-9) Specific Dickson, UA (test 1.018 1.001-1.035 code = 5811-5) pH, UA (test code = 6.0 5.0-8.0 5803-2) Protein, UA (test code = Negative Negative 93113-5) Glucose, UA (test code = Negative Negative 365) Ketones, UA (test code = 10 mg/dL Negative A 2514-8) Bilirubin, UA (test code = Negative Negative 57374-4) Blood, UA (test code = Negative Negative 96072-3) Nitrite, UA (test code = Negative Negative 5802-4) Leukocytes, UA (test code Negative Negative = 5799-2) Urobilinogen, UA (test 0.2 mg/dL 0.2-1 code = 76255-7) RBC, UA (test code = 0 /HPF 92036-2) WBC, UA (test code = 1 /HPF 5821-4) Mucus (test code = 8247-9) Rare Hyaline Casts, UA (test 1 /LPF code = 01890-3) Amorphous Crystals (test Rare code = 84106-5) Specimen Source (test code = 2795) MICHAEL (test code = MICHAEL) [employer] Worker ID - [auto][employer] Worker ID - tech Lab Interpretation (test Abnormal code = 54535-0) [facility]/ REFLEX URINE [id number] 04:06:00 Test Item Value Reference Range Interpretation [...] = 1584) SOURCE(BEAKER) (test code = 2795) [employer] Worker ID - [auto][employer] Worker ID - techOsmolality, [id number] 04:02:00 Test Item Value Reference Range Interpretation Comments Osmolality, Ur (test code = 630 50-1,200 mOsm/kg mOsm/kg 2695-5) Lab Interpretation (test code Normal = 52528-2) [facility] HospitalOSMOLALITY, [id number] 04:02:00 Test Item Value Reference Range Interpretation Comments OSMOLALITY URINE (BEAKER) (test 630 mOsm/kg 50-1,200 mOsm/kg code = 614) Creatinine, random [id number] 03:18:00 Test Item Value Reference Range Interpretation Comments Creatinine, Ur 47.2 mg/dL (test code = 2161-8) MICHAEL (test code = Reference Range: No MICHAEL) NormalsOperator ID - WIN Gee [facility] Sunsetodium, random [id number] 03:18:00 Test Item Value Reference Range Interpretation Comments Sodium Urine (test 91 meq/L code = 2955-3) MICHAEL (test code = Reference Range: No MICHAEL) NormalsOperator ID - WIN Gee [facility] HospitalUrea Nitrogen, random [id number] 03:18:00 Test Item Value Reference Range Interpretation Comments Urea Nitrogen, Ur 798 mg/dL (test code = 3095-7) MICHAEL (test code = Reference Range: No MICHAEL) NormalsOperator ID - WIN M [facility] HospitalCREATININE, RANDOM [id number] 03:18:00 Test Item Value Reference Range Interpretation Comments CREATININE URINE (BEAKER) (test 47.2 mg/dL code = 375) Reference Range: No NormalsOperator ID - WIN MSODIUM, RANDOM [id number] 03:18:00 Test Item Value Reference Range Interpretation Comments SODIUM URINE (BEAKER) (test code = 91 meq/L 243) Reference Range: No NormalsOperator ID - WIN MUREA NITROGEN, RANDOM URINE 2020-03-11 03:18:00 Test Item Value Reference Range Interpretation Comments UREA NITROGEN URINE (BEAKER) (test 798 mg/dL code = 538) Reference Range: No NormalsOperator ID - WIN MPOCT-GLUCOSE [id number] 01:01:00 Test Item Value Reference Range Interpretation Comments POC-GLUCOSE METER 114 mg/dL 70-110 H : TESTED A T [facility] 6720 (AKER) (test code = SHABBIR CHAN AR, 1538) [address]: [employer] Worker/Techni benjamin ID = [id number] for TRAVON REYES Lactic acid, [id number] 21:31:00 Test Item Value Reference Range Interpretation Comments Lactate, Venous (test 1.31 mmol/L 0.5-2.2 Specim en code = 2872) slightly hemolyzed MICHAEL (test code = MICHAEL) [employer] Worker ID - DBSpecimen slightly icteric Lab Interpretation Normal (test code = 94058-2) [facility] HospitalLACTIC ACID, [id number] 21:31:00 Test Item Value Reference Range Interpretation Comments LACTATE BLOOD VENOUS 1.31 mmol/L 0.50-2.20 Specime n slightly (2) (BEAKER) (test hemolyzed code = 2872) [employer] Worker ID - DBSpecimen slightly ictericPOCT-GLUCOSE [id number] 18:10:00 Test Item Value Reference Range Interpretation Comments POC-GLUCOSE METER 114 mg/dL 70-110 H : TESTED A T [facility] 6720 (BEAKER) (test code = SHABBIR CHAN AR, 1538) [address]: [employer] Worker/Techni benjamin ID = [id number] for SANTOS JACOBSON DD T4, [id number] 17:23:00 Test Item Value Reference Range Interpretation Comments Free T4 (test code = 3024-7) 1.00 ng/dL 0.7-1.48 MICHAEL (test code = MICHAEL) [employer] Worker ID - DB Lab Interpretation (test Normal code = 21519-3) [facility] HospitalHepatitis panel, [id number] 17:23:00 Test Item Value Reference Range Interpretation Comments Hep A IgM (test code = Nonreactive Nonreactive 21431-7) Hep B C IgM (test code = Nonreactive Nonreactive 62204-9) Hepatitis C Ab (test code = Nonreactive Nonreactive 37734-7) HBsAg Screen (test code = Nonreactive Nonreactive 5195-3) MICHAEL (test code = MICHAEL) [employer] Worker ID - DB Lab Interpretation (test Normal code = 44392-9) [facility] HospitalT4, [id number] 17:23:00 Test Item Value Reference Range Interpretation Comments FREE T4 (BEAKER) (test code = 655) 1.00 ng/dL 0.70-1.48 [employer] Worker ID - DBHEPATITIS PANEL, [id number] 17:23:00 Test Item Value Reference Range Interpretation Comments HEPATITIS A IGM ANTIBODY (BEAKER) Nonreactive Nonreactive (test code = 498) HEPATITIS B CORE IGM ANTIBODY Nonreactive Nonreactive (BEAKER) (test code = 645) HEPATITIS C ANTIBODY (BEAKER) Nonreactive Nonreactive (test code = 367) HEPATITIS B SURFACE ANTIGEN (2) Nonreactive Nonreactive (BEAKER) (test code = 2585) [employer] Worker ID - DBTSH/Free T4 If [id number] 15:51:00 Test Item Value Reference Range Interpretation Comments TSH (test code = 0.299 0.350- 4.940 uIU/mL L 39462-4) MICHAEL (test code = MICHAEL) [employer] Worker ID - ALIDA B Lab Interpretation (test Abnormal code = 88923-8) [facility] HospitalTSH/FREE T4 IF [id number] 15:51:00 Test Item Value Reference Range Interpretation Comments THYROID STIMULATING HORMONE 0.299 uIU/mL 0.350-4.940 L (BEAKER) (test code = 772) [employer] Worker ID - ALIDA [id number] 15:33:00 Test Item Value Reference Range Interpretation Comments Cortisol, Total (test code 58.2 ug/dL 3.7-19.4 H = 2755) MICHAEL (test code = MICHAEL) [employer] Worker ID - JOHN C Lab Interpretation (test Abnormal code = 82539-0) [facility] HospitalCORTISOL2020-08-28 15:33:00 Test Item Value Reference Range Interpretation Comments CORTISOL, TOTAL (BEAKER) (test 58.2 ug/dL 3.7-19.4 H code = 2755) [employer] Worker ID - JOHN DWywkeismwgyug2699-35-30 15:07:00 Test Item Value Reference Range Interpretation Comments Procalcitonin (test code = 1.40 ng/mL <0.05 H 41450-3) MICHAEL (test code = MICHAEL) SEPSIS RISK (ng/mL)Low: 0.05-0.50Intermedi ate: 0.51-2.00High: >=2.01 Lab Interpretation (test Abnormal code = 77744-4) [facility] HospitalPROCALCITONIN2020-08-28 15:07:00 Test Item Value Reference Range Interpretation Comments PROCALCITONIN (BEAKER) (test code 1.40 ng/mL <0.05 H = 3036) SEPSIS RISK (ng/mL)Low: 0.05-0.50Intermediate: 0.51-2.00High: >=2.01B-type Natriuretic Factor (BNP)2020-03-10 14:52:00 Test Item Value Reference Range Interpretation Comments BNP (test code = 43287-2) 154 pg/mL 0-100 H MICHAEL (test code = MICHAEL) [employer] Worker ID - JOHN C Lab Interpretation (test Abnormal code = 39916-2) [facility] HospitalTroponin [id number] 14:52:00 Test Item Value Reference Range Interpretation Comments Troponin I (test code = 0.04 ng/mL 0-0.03 H 68649-5) MICHAEL (test code = MICHAEL) Troponin I [...] C Lab Interpretation (test Abnormal code = 52013-8) [facility] HospitalB-TYPE NATRIURETIC FACTOR (BNP)2020-03-10 14:52:00 Test Item Value Reference Range Interpretation Comments B-TYPE NATRIURETIC PEPTIDE (AKER) 154 pg/mL 0-100 H (test code = 700) [employer] Worker ID - JOHN CTROPONIN [id number] 14:52:00 Test Item Value Reference Range Interpretation [...] failure, acidosis, acute neurological disease, and persistent tachyarrhythmia.[employer] Worker ID - JOHN COsmolality, serum 2020-03-10 14:47:00 Test Item Value Reference Range Interpretation Comments Osmolality Serum (test code = 2692-2) 287 275- 295 mOsm/kg Lab Interpretation (test code = Normal 06550-9) [facility] HospitalOSMOLALITY, [id number] 14:47:00 Test Item Value Reference Range Interpretation Comments OSMOLALITY, SERUM (BEAKER) (test 287 mOsm/kg 275-295 code = 615) [id number] 14:46:00 Test Item Value Reference Range Interpretation Comments Amylase (test code = 397 U/L 25-125 H 1798-8) MICHAEL (test code = MICHAEL) [employer] Worker ID - JOHN CSpecimen slightly icteric Lab Interpretation (test Abnormal code = 37077-2) [facility] HospitalLipase2020-08-28 14:46:00 Test Item Value Reference Range Interpretation Comments Lipase (test code = 689 U/L 8-78 H 3040-3) MICHAEL (test code = MICHAEL) [employer] Worker ID - JOHN Sharp slightly icteric Lab Interpretation (test Abnormal code = 80391-5) [facility] HospitalTriglycerides2020-08-28 14:46:00 Test Item Value Reference Range Interpretation Comments Triglycerides (test 220 mg/dL code = 2571-8) MICHAEL (test code = MICHAEL) TRIGLYCERIDE REFERENCE RANGELow Risk <150Borderline Risk 150-199High Risk 200-499Very High Risk >=500Operator ID - JOHN CSpecimen slightly icteric [facility] HospitalMAGNESIUM2020-08-28 14:46:00 Test Item Value Reference Range Interpretation Comments MAGNESIUM (BEAKER) (test code = 1.3 mg/dL 1.6-2.6 L 627) [employer] Worker ID - JOHN [id number] 14:46:00 Test Item Value Reference Range Interpretation Comments PHOSPHORUS (BEAKER) (test code = 1.8 mg/dL 2.3-4.7 L 604) [employer] Worker ID - JOHN [id number] 14:46:00 Test Item Value Reference Range Interpretation Comments TRIGLYCERIDES (BEAKER) (test code = 220 mg/dL 540) TRIGLYCERIDE REFERENCE RANGELow Risk <150Borderline Risk 150-199High Risk 200-499Very High Risk>=500Operator ID - JOHN Abernathyecimen slightly icteric COMPREHENSIVE METABOLIC [id number] 14:46:00 Test Item Value Reference Range Interpretation [...] S NOT APPLICABLE FOR DIALYSIS PATIEN TS. [employer] Worker ID - JUL CSpecimen slightly [id number] 14:46:00 Test Item Value Reference Range Interpretation Comments AMYLASE (BEAKER) (test code = 349) 397 U/L 25-125 H [employer] Worker ID - JUL CSpecimen slightly [id number] 14:46:00 Test Item Value Reference Range Interpretation Comments LIPASE (BEAKER) (test code = 749) 689 U/L 8-78 H [employer] Worker ID - JUL CSpecimen slightly [id number] 14:41:00 Test Item Value Reference Range Interpretation Comments Fibrinogen (test code = 3255-7) 115 mg/dl 225-434 L Lab Interpretation (test code = Abnormal 12443-1) [facility] HospitalFIBRINOGEN2020-08-28 14:41:00 Test Item Value Reference Range Interpretation Comments FIBRINOGEN LEVEL (BEAKER) (test 115 mg/dl 225-434 L code = 658) [id number] 14:38:00 Test Item Value Reference Range Interpretation Comments Ammonia (test code = 40 18- 72 mol/L Speci men 65750-1) slightly hemolyzed MICHAEL (test code = MICHAEL) [employer] Worker ID - JUL C Lab Interpretation Normal (test code = 43545-3) [facility] HospitalAMMONIA2020-08-28 14:38:00 Test Item Value Reference Range Interpretation Comments AMMONIA (BEAKER) 40 mol/L 18-72 Specimen sl ightly (test code = 348) hemolyzed [employer] Worker ID - JOHN CLACTIC ACID, [id number] 14:37:00 Test Item Value Reference Range Interpretation Comments LACTATE BLOOD VENOUS (2) (BEAKER) 2.61 mmol/L 0.50-2.20 H (test code = 2872) [employer] Worker ID - JOHN CSpecimen slightly ictericPT/[id number] 14:36:00 Test Item Value Reference Range Interpretation Comments Protime (test code = 18.0 11.9- 14.2 H 5902-2) seconds INR (test code = 1.53 <=5.90 6301-6) PTT (test code = 32.1 22.5- 36.0 92796-6) seconds MICHAEL (test code = MICHAEL) Effective 12/09/2018: PT Reference Range ChangeNew: 11.9-14.2 Previous: 11.7-14.7 RECOMMENDED COUMADIN/WARFARIN INR THERAPY RANGESSTANDARD DOSE: 2.0-3.0 Includes: PROPHYLAXIS for venous thrombosis, systemic embolization; TREATMENT for venous thrombosis and/or pulmonary embolus.HIGH RISK: Target INR is 2.5-3.5 for patients wiht mechanical heart valves. Lab Interpretation Abnormal (test code = 94483-0) [facility] HospitalPT/[id number] 14:36:00 Test Item Value Reference Range Interpretation [...] mechanical heart valves.CBC W/PLT COUNT & AUTO [id number] 14:33:00 Test Item Value Reference Range Interpretation [...] (BEAKER) (test code = 2801) Blood gas, [id number] 14:30:00 Test Item Value Reference Range Interpretation Comments pH, Rito (test code = 2746-6) 7.33 7.32-7.42 pCO2, Rito (test code = 755) 44 41- 51 mmHg pO2, Rito (test code = 2705-2) 30 25- 40 mmHg O2 Sat, Rito (test code = 2711-0) 52.3 % 40-70 HCO3, Rito (test code = 71288-8) 23 mmol/L 21-29 Base Excess, Rito (test code = -3.3 mmol/L -2-3 L 1927-3) Patient Temperature (test code = 37.0 C 8310-5) FIO2 (test code = 1819) 21 % Lab Interpretation (test code = Abnormal 22450-7) [facility] HospitalCalcium, [id number] 14:30:00 Test Item Value Reference Range Interpretation Comments Calcium, Ion (test code = 1993-) 1.05 mmol/L 1.12-1.27 L pH, Blood (test code = 45438-6) 7.33 Lab Interpretation (test code = Abnormal 70181-1) [facility] HospitalCALCIUM, [id number] 14:30:00 Test Item Value Reference Range Interpretation Comments CALCIUM IONIZED (BEAKER) (test 1.05 mmol/L 1.12-1.27 L code = 698) PH, BLOOD (BEAKER) (test code = 7.33 1810) BLOOD GAS, [id number] 14:30:00 Test Item Value Reference Range Interpretation [...]
--- OUTSIDE RECORDS SUMMARY | 2020-06-17 14:13 | XMS REPORT ---
:1950 Author Organization [facility] Address [address] [place] [address] Care Team Providers Name Role Phone Maddison Unavailable [phone] PROBLEMS Type Condition ICD9-CM [id number] Onset Condition SNOMED Code Notes Code Code Dates Status Problem Electrolyte E87.8 Active 172406317 imbalance Problem Leukopenia, D72.819 Active 88601235 History of unspecified type low K+, Na+, Mg2+, and Cl Problem Abnormal R71.8 Active 244470417 Low RBC erythrocyte count/low indices Hct/high MCV. Problem Fatigue, R53.83 Active 02078697 unspecified type Problem Anemia, D64.9 Active 967405754 unspecified type Problem GERD without K21.9 Active 102673733 esophagitis Problem Loss of appetite R63.0 Active 92303107 Resolv ed. Problem Alcohol-induced K85.20 Active 626074614 Resolv ed. acute pancreatitis, unspecified complication status Problem Dizziness R42 Active 725771300 Problem Pain in right M79.621 Active 924165306 axilla Problem Vitamin D E55.9 Active 62708694 deficiency Problem Imbalance R26.89 Active 690115191 Problem Elevated BP R03.0 Active 962363766 without diagnosis of hypertension Problem Right wrist pain M25.531 Active 548375318622945 Problem Dysphagia, R13.10 Active 98255028 unspecified type Problem Subcutaneous mass R22.1 Active 22087999711837 104 Located at of neck right anterior neck; enlarged lymph node vs. other. Problem Elevated liver R74.8 Active 364174798 Elevate d enzymes AST and GGT. Problem Depression Z13.31 Active 209261287 screening Problem Renal mass N28.89 Active 242256346 Located in right kidney; 11 mm; seen per CT scan done at [facility] in 04/2016. Problem Abnormal thyroid R93.89 Active 365506012 ultrasound Problem Hepatomegaly R16.0 Active 49044367 Problem Abnormal thyroid R94.6 Active 090212239 Low F ree function test T3. Problem Alcoholic K70.30 Active 958221814 cirrhosis of liver without ascites Problem Pain in right leg M79.604 Active 54789270757895 108 Problem Fatty liver K76.0 Active 218572679 Problem Pain in left M79.622 Active 363776259 axilla Problem Weight loss R63.4 Active 71305489 Improved. Problem Moderate E44.0 Active 642368208 protein-calorie malnutrition Problem Gastroesophageal K21.0 Active 461780121 reflux disease with esophagitis Problem Alcohol abuse F10.10 Active 83130425 Problem Bilateral low M54.5 Active 359297856 With back pain without radiat ion sciatica, of pain up unspecified her back chronicity to her shoulder blades and her neck. Problem Asthma J45.909 Active 687691852 Problem Hiatal hernia K44.9 Active 86697560 Problem History of Z86.69 Active 110151670 migraine Problem Alcoholism F10.20 Active 0200148 Problem Recurrent UTI N39.0 Active 209989291 Problem Abnormal R89.9 Active 535421433 Low laboratory test globulin result level. Problem Pain of left leg M79.605 Active 981141000 Problem Hypomagnesemia E83.42 Active 396280199 Problem Pancytopenia D61.818 Active 398870086 Problem Gastritis with K29.71 Active 5437099 hemorrhage, unspecified chronicity, unspecified gastritis type Problem Gastritis, K29.70 Active 5175472 presence of bleeding unspecified, unspecified chronicity, unspecified gastritis type ALLERGIES Allergen (clinical drug Drug/Non Drug Allergy Reaction Allergy Type Onset Date Status ingredient) documented on EMR sumatriptan Imitrex(NDC Unknown Drug Allergy Active Code:[address]-72) acetaminophen / [place](NDC Unknown Drug Allergy Active hydrocodone Code:[address]-38) ENCOUNTERS from 1950 to 2020-06-06 Encounter Location Date Provider Diagnosis Hannah [address] [place] [address] [address], [facility] [address] IMMUNIZATIONS No Information SOCIAL HISTORY Tobacco Use: Social History Observation Description Date Details (start date - stop date) Former Smoker Sex Assigned At : Social History Observation Description Sex Assigned At Unknown PHQ9 Question Answer Notes Little interest or pleasure in doing things Not at all Feeling down, depressed, or hopeless Not at all Trouble falling or staying asleep or sleeping too much Sever al days Feeling tired or having little energy Not at all Poor appetite or overeating Not at all Feeling bad about yourself, or that you are a failure, or No t at all have let yourself or your family down Trouble concentrating on things, such as reading the Not at all newspaper or watching television Moving or speaking so slowly that other people could have No t at all noticed; or the opposite, being so fidgety or restless that you have been moving around a lot more than usual Total Score 1 Interpretation Minimal Depression Thoughts that you would be better off or of hurting Not at all yourself in some way Alcohol Screen Question Answer Notes Did you have a drink containing alcohol in the past year? Ye s Points 0 Interpretation Negative Tobacco Use/Smoking Question Answer Notes Are you a former smoker Additional Findings: Tobacco Non-User Ex-moderate cigarette smoker (10-19/day) REASON FOR REFERRAL No Information VITAL SIGNS No information MEDICATIONS Medication SIG (Take, Route, Notes Start Date End Date Status Frequency, Duration) Sucralfate 1 GM 1 tablet at bedtime Not-Taking on an empty stomach before meals Orally Twice a day Methenamine Hippurate 1 1 tablet Orally Active GM Twice a day MagOx 400 400 (241.3 Mg) 1 tablet with food Not-Taking MG Orally Once a day Vitamin D3 2000 UNIT 2 tablets Orally Not-Taking Once a day Metronidazole 500 MG 1 tablet Orally Not-Taking Three times a day Gabapentin 100 MG 1 capsule Orally A ctive twice a day Augmentin 500-125 MG 1 tablet Orally Active every 12 hrs. x 7 days Estrace 0.1 MG/GM as directed Vaginal Aug, Active twice weekly for 90 days Pantoprazole Sodium 40 1 tablet Orally Active MG Once a day Dicyclomine HCl 20 MG 1 tablet Orally Not-Taking Four times a day as needed Cefdinir 300 MG as directed Orally May,Jun, 0 Active BID for 7 days Nitrofurantoin 1 capsule with food N ot-Taking Macrocrystal 100 MG or milk Orally Twice a day x 7 days Omeprazole 40 MG 1 capsule Orally No t-Taking Once a day Methenamine Hippurate 1 1 tablet Orally Active GM Twice a day for 90 days Travatan Z 0.004 % 1 drop into Activ e affected eye in the evening Ophthalmic Once a day Estradiol 0.1 MG/GM 1/2 gm Vaginal Apr, Active twice weekly for 90 days PROCEDURES No Information RESULTS No Results REASON FOR VISIT No Information MEDICAL (GENERAL) HISTORY Type Description Date Medical History GERD without esophagitis Medical History Asthma Medical History History of migraine Medical History Alcoholism Medical History Elevated BP without diagnosis of hyperte nsion Medical History Frequent UTI Medical History Loss of appetite Medical History Weight loss Medical History Pancytopenia Medical History Anemia, unspecified type Medical History Alcoholic cirrhosis of liver without asc ites Medical History Electrolyte imbalance Medical History Elevated liver enzymes Medical History Leukopenia, unspecified type Medical History Abnormal erythrocyte indices Medical History Vitamin D deficiency Medical History Fatty liver Medical History Hepatomegaly Medical History Fatigue, unspecified type Medical History Renal mass Medical History Abnormal laboratory test result Surgical History Cyst Removed-wrist Goals Section No Information Health Concerns No Information MEDICAL EQUIPMENT No Information MENTAL STATUS No Information FUNCTIONAL STATUS No Information ASSESSMENTS No Information PLAN OF TREATMENT Medication Medication Name Sig Start Date Stop Date Estradiol 0.1 MG/GM 1/2 gm Vaginal twice weekly for 90 days 2019 Cefdinir 300 MG as directed Orally BID for 7 days May, Jun, Next Appt Details Provider Name:Fan Billy, 2020-06-21 1 1:20:00 AM, [address], [address], [place], [address], Insurance Providers Payer Name Payer Address Payer Insured Patient Coverage Cover age Phone Name Relationship to Start Date End Date Insured AAR [address] [address] [phone] Bernardo Faith self Medicare [place] [address] Complete [id number] MEDICARE Attn Part B [id number] Bernardo Faith self 2015 [employer] Claims [address] [facility] [address]
--- OUTSIDE RECORDS SUMMARY | 2020-06-17 14:13 | XMS REPORT ---
:1950 Author Organization [facility] Address [address] [place] [address] Care Team Providers Name Role Phone Maddison Unavailable [phone] PROBLEMS Type Condition ICD9-CM [id number] Onset Condition SNOMED Code Notes Code Code Dates Status Problem Electrolyte E87.8 Active 192787151 imbalance Problem Leukopenia, D72.819 Active 58553949 History of unspecified type low K+, Na+, Mg2+, and Cl Problem Abnormal R71.8 Active 330696282 Low RBC erythrocyte count/low indices Hct/high MCV. Problem Fatigue, R53.83 Active 10603033 unspecified type Problem Anemia, D64.9 Active 914848141 unspecified type Problem GERD without K21.9 Active 879696827 esophagitis Problem Loss of appetite R63.0 Active 09970111 Resolv ed. Problem Alcohol-induced K85.20 Active 674120520 Resolv ed. acute pancreatitis, unspecified complication status Problem Dizziness R42 Active 356321859 Problem Pain in right M79.621 Active 701070342 axilla Problem Vitamin D E55.9 Active 62518034 deficiency Problem Imbalance R26.89 Active 142376298 Problem Elevated BP R03.0 Active 074066212 without diagnosis of hypertension Problem Right wrist pain M25.531 Active 976583257492350 Problem Dysphagia, R13.10 Active 83280830 unspecified type Problem Subcutaneous mass R22.1 Active 44454259231604 104 Located at of neck right anterior neck; enlarged lymph node vs. other. Problem Elevated liver R74.8 Active 953186130 Elevate d enzymes AST and GGT. Problem Depression Z13.31 Active 627434024 screening Problem Renal mass N28.89 Active 285320754 Located in right kidney; 11 mm; seen per CT scan done at [facility] in 04/2016. Problem Abnormal thyroid R93.89 Active 843518003 ultrasound Problem Hepatomegaly R16.0 Active 93308486 Problem Abnormal thyroid R94.6 Active 739845742 Low F ree function test T3. 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 Problem Moderate E44.0 Active 408082212 protein-calorie malnutrition Problem Gastroesophageal K21.0 Active 321881353 reflux disease with esophagitis Problem Alcohol abuse F10.10 Active 91981564 Problem Bilateral low M54.5 Active 861335263 With back pain without radiat ion sciatica, of pain up unspecified her back chronicity to her shoulder blades and her neck. Problem Asthma J45.909 Active 912849352 Problem Hiatal hernia K44.9 Active 98895207 Problem History of Z86.69 Active 332600056 migraine Problem Alcoholism F10.20 Active 9535678 Problem Recurrent UTI N39.0 Active 573079838 Problem Abnormal R89.9 Active 689187451 Low laboratory test globulin result level. Problem Pain of left leg M79.605 Active 929300920 Problem Hypomagnesemia E83.42 Active 490801323 Problem Pancytopenia D61.818 Active 957300840 Problem Gastritis with K29.71 Active 8328611 hemorrhage, unspecified chronicity, unspecified gastritis type Problem Gastritis, K29.70 Active 6560338 presence of bleeding unspecified, unspecified chronicity, unspecified gastritis type ALLERGIES Allergen (clinical drug Drug/Non Drug Allergy Reaction Allergy Type Onset Date Status ingredient) documented on EMR sumatriptan Imitrex(NDC Unknown Drug Allergy Active Code:[address]-15) acetaminophen / [place](NDC Unknown Drug Allergy Active hydrocodone Code:[address]-33) ENCOUNTERS from 1950 to 2020-06-07 Encounter Location Date Provider Diagnosis [facility] [address] [facility] [address], [facility] [place] [address] IMMUNIZATIONS No Information SOCIAL HISTORY Tobacco Use: [...] Information RESULTS No Results REASON FOR VISIT UA, cx pending MEDICAL (GENERAL) HISTORY Type Description Date Medical [...] gm Vaginal twice weekly for 90 days 14 2019 Cefdinir 300 MG as directed Orally BID for 7 days May, Jun, Next Appt Details Provider Name:Fan Billy 2020-06-21 1 1:20:00 AM, [address], [address], [place], [address], Insurance Providers Payer Name Payer Address Payer Insured Patient Coverage Cover age Phone Name Relationship to Start Date End Date Insured MEDICARE Attn Part B [id number] MarcellBernardo cece 2015 [employer] Claims [address] [facility] [address] AARP [address] [address] [phone] Bernardo Faith self Medicare [place] [address] Complete [phone]
[2020-06-17 14:50] LABS: Urine Bacteria NONE SEEN /HPF (<20); Urine RBC NONE SEEN /HPF (NONE SEEN)
[2020-06-17 15:27] LABS: Urine Blood NEGATIVE (NEG); Urine Glucose NEGATIVE (NEG); Urine Protein NEGATIVE (NEG); Urine Specific Gravity 1.015 (1.005-1.030); Urine pH 6.5 (5.0-7.0)
--- NOTE | 2020-06-17 15:33 | RAD REPORT ---
EXAM DESCRIPTION: CT - Head Brain Wo Cont - 06/17/2020 3:14 pm CLINICAL HISTORY: Alteration of awareness/confusion COMPARISON: May 2020 TECHNIQUE: Computed axial tomography of the head was obtained. IV contrast was not requested. All CT scans are performed using dose optimization technique as appropriate and may include automated exposure control or mA/KV adjustment according to patient size. FINDINGS: An intracranial bleed is not seen . The ventricles are normal in caliber. No extra-axial fluid collection is noted. Mild to moderate cerebral atrophy Fluid within the sinuses/ mastoids is not seen. IMPRESSION: No acute intracranial abnormality is seen. If patient's symptoms persist MRI of the bra in would be recommended.
--- NOTE | 2020-06-17 15:34 | RAD REPORT ---
EXAM DESCRIPTION: [place] Single View06/17/2020 3:11 pm CLINICAL HISTORY: Shortness of breath COMPARISON: May 2020 FINDINGS: The lungs appear clear of acute infiltrate. The heart is normal size IMPRESSION: No acute abnormalities displayed
[2020-06-17 15:45] LABS: Protime INR 1.05
[2020-06-17 15:50] LABS: Absolute Lymphocytes (CBC) 0.8 K/uL (0.7-4.9); Basophils % 0.7 % (0-1.3); Hematocrit 33.5 % (36.0-45.0); Lymphocytes % 24.1 % (15.3-44.8); MPV 7.2 fL (7.6-11.3); RBC Red Blood Cell Count 3.21 M/uL (3.86-4.86)
[2020-06-17 15:59] LABS: ALT/SGPT 19 U/L (12-78); AST/SGOT 30 U/L (15-37); Albumin 3.3 g/dL (3.4-5.0); Alkaline Phosphatase 92 U/L (45-117); BUN Blood Urea Nitrogen 5 mg/dL (7-18); Bicarbonate 26 mmol/L (21-32); Bilirubin Direct 0.3 mg/dL (0-0.2); Bilirubin Total 0.7 mg/dL (0.2-1.0); Glucose Level 85 mg/dL (74-106); Magnesium 1.5 mg/dL (1.8-2.4); NT PRO-BNP 361 pg/mL (<125); Potassium 3.2 mmol/L (3.5-5.1); Protein, Total 6.3 g/dL (6.4-8.2); Sodium Level 141 mmol/L (136-145); Troponin (Emerg Dept Use Only) < 0.02 ng/mL (0.0-0.045)
[2020-06-17] MEDS ORDERED: MAGNESIUM SULFATE 1 gm IVPB 1 GM/100 ML BAG IV ONE (17:31)
[2020-06-17] MEDS ORDERED: POTASSIUM 25 MEQ EFFERV TAB ONE (17:31)
--- NOTE | 2020-06-17 17:42 | ER ---
Nurse's Notes [facility] Name: Ciara Faith Age: 70 yrs Sex: Female : 1950 Arrival Date: 06/17/2020 Time: 14:14 Bed 18 Private MD: Diagnosis: Alcohol abuse with intoxication Presentation: 06/17 14:14 Chief complaint: EMS states: EMS called for breathing difficulty, upon arrival no ph respiratory distress noted, Spo2 98% RA, however pt was screaming and reported "seeing monsters", hx of UTI, VSS. Coronavirus screen: Client denies travel out of the [place] in the last 14 days. Ebola Screen: No symptoms or risks identified at this time. Initial Sepsis Screen: Does the patient meet any 2 criteria? No. Patient's initial sepsis screen is negative. Does the patient have a suspected source of infection?. Risk Assessment: Do you want to hurt yourself or someone else? Patient reports no desire to harm self or others. Onset of symptoms was June 17, 2020. 14:14 Method Of Arrival: EMS: [facility] ph 14:14 Acuity: LINA 3 ph Triage Assessment: 19:16 General: Appears in no apparent distress. Behavior is calm, cooperative, appropriate ph for age. Pain: Denies pain. Historical: - Allergies: 14:19 [place]; ph - Home Meds: 14:19 folic acid 1 mg Oral tab [Active]; pantoprazole 40 mg Oral TbEC once daily [Active]; ph - PMHx: 14:19 Alcoholism; GERD; UTI; ph - PSHx: 14:19 None; ph - Immunization history:: Adult Immunizations up to date. - Social history:: Smoking status: Patient denies any tobacco usage or history of. Patient uses alcohol, on a daily basis. " 1 or 2 drinks". Screenin:18 Abuse screen: Denies threats or abuse. Denies injuries from another. Nutritional ph screening: No deficits noted. Tuberculosis screening: No symptoms or risk factors identified. Fall Risk None identified. Assessment: 14:45 General: Appears in no apparent distress. comfortable, slender, well groomed, Behavior ph is calm, cooperative, appropriate for age, Denies fever, feeling ill. Pain: Denies pain. Neuro: Level of Consciousness is awake, alert, obeys commands, Oriented to person, place, time, situation. Cardiovascular: Capillary refill < 3 seconds in bilateral fingers Patient's skin is warm and dry. Respiratory: Airway is patent Respiratory effort is even, unlabored, Respiratory pattern is regular, symmetrical, Breath sounds are clear bilaterally. Denies cough, shortness of breath. GI: No signs and/or symptoms were reported involving the gastrointestinal system. : Reports urinary frequency, hx of frequent UTIs Denies burning with urination. Derm: Skin is intact, Skin is pink, warm \\T\\ dry. Musculoskeletal: Circulation, motion, and sensation intact. Range of motion: intact in all extremities. 16:00 Reassessment: Patient appears in no apparent distress at this time. Patient and/or ph family updated on plan of care and expected duration. Pain level reassessed. Patient is alert, oriented x 3, equal unlabored respirations, skin warm/dry/pink. Patient denies pain at this time. 17:00 Reassessment: Patient appears in no apparent distress at this time. Patient and/or ph family updated on plan of care and expected duration. Pain level reassessed. Patient is alert, oriented x 3, equal unlabored respirations, skin warm/dry/pink. 17:45 Reassessment: Patient appears in no apparent distress at this time. Patient and/or ph family updated on plan of care and expected duration. Pain level reassessed. Patient is alert, oriented x 3, equal unlabored respirations, skin warm/dry/pink. D/C pending completion of IV medications. 18:45 Reassessment: Patient and/or family updated on plan of care and expected duration. Pain ph level reassessed. 18:50 Reassessment: Awaiting ride home states that her is on his way. ph 19:17 Reassessment: Patient and/or family updated on plan of care and expected duration. Pain ph level reassessed. Vital Signs: 14:14 BP 135 / 72; Pulse 85; Resp 18; Temp 98.3(O); Pulse Ox 98% on R/A; Weight 52.16 kg; ph Height 5 ft. 4 in. (162.56 cm); Pain 0/10; 14:14 Body Mass Index 19.74 (52.16 kg, 162.56 cm) ph ED Course: 14:14 Patient arrived in ED. ds1 14:14 Paula Quezada, RN is Primary Nurse. ph 14:15 Ra Mcneil PA is PHCP. cp 14:15 Paul Melvin MD is Attending Physician. cp 14:18 Triage completed. ph 14:18 Patient has correct armband on for positive identification. Bed in low position. Call ph light in reach. Side rails up X 1. Pulse ox on. NIBP on. Door closed. Noise minimized. Warm blanket given. 14:50 Missed attempt(s): 20 gauge in right wrist. Bleeding controlled, band aid applied, dh3 catheter tip intact. 14:55 Missed attempt(s): 20 gauge in left antecubital area. Bleeding controlled, band aid dh3 applied, catheter tip intact. 15:05 Inserted saline lock: 22 gauge in right wrist, using aseptic technique. Blood collected.ds4 15:11 XRAY Chest (1 view) In Process Unspecified. EDMS 15:15 CT Head Brain wo Cont In Process Unspecified. EDMS 16:05 EKG done, by ED staff, reviewed by Ra AN. dh3 19:16 No provider procedures requiring assistance completed. IV discontinued, intact, ph bleeding controlled, No redness/swelling at site. Pressure dressing applied. 19:17 Arm band placed on. ph Administered Medications: 17:50 Drug: Potassium Effervescent Tablet 50 mEq Route: PO; ph 18:32 Follow up: Response: No adverse reaction ph 18:32 Follow up: Response: No adverse reaction ph 17:50 Drug: Magnesium Sulfate 1 grams Route: IVPB; Infused Over: 1 hrs; Site: right forearm; ph 18:32 Follow up: Response: No adverse reaction; IV Status: Completed infusion ph 18:32 Not Given (Other Intervention Used): Banana Bag - (NS 0.9% 1000 ml, foLIC Acid 1 mg, ph Thiamine 100 mg, Multivitamin 1 amp) IV at 250 ml/hr once Outcome: 17:42 Discharge ordered by . cp 19:17 Discharged to home via wheelchair. ph 19:17 Condition: stable 19:17 Discharge instructions given to patient, Instructed on discharge instructions, follow up and referral plans. Demonstrated understanding of instructions, follow-up care. 19:18 Patient left the ED. ph Signatures: Dispatcher [employer] EDNE Phylicia Cardoza ds1 Alejandro Mojica ds4 Paula Quezada, ERICA RN ph Ra Mcneil PA PA cp Herrera, Deanna 3
--- NOTE | 2020-06-17 17:42 | EDPHYS ---
Physician Documentation [facility] Name: Ciara Faith Age: 70 yrs Sex: Female : 1950 Arrival Date: 06/17/2020 Time: 14:14 Bed 18 Private MD: ED Physician Paul Melvin HPI: 06/17 14:20 This 70 yrs old Female presents to ER via EMS with complaints of Altered cp Mental Status. 14:20 The patient presents with visual hallucinations. cp 14:20 Onset: The symptoms/episode began/occurred today. cp 14:20 Possible causes: alcohol, has a history of chronic alcohol abuse, possible withdrawals. cp Associated signs and symptoms: Pertinent negatives: abdominal pain, chest pain, confusion, weakness, fever. Current symptoms: In the emergency department the patient's symptoms have resolved, the patient is alert and fully oriented, has normal speech, has normal responsiveness, has no confusion. Patient's baseline: Neuro: alert and fully oriented, Motor: no deficits, Ambulation: walks without assistance, Speech: normal. EMS reports they were called to patient's home by who reported patient was having difficulty breathing. Upon arrival EMS did not observe patient to be in respiratory distress. Patient reported to EMS that she had been seeing "monsters" and they were reportedly coming to get her. Patient denied thoughts of suicide or homocide. Historical: - Allergies: 14:19 [place]; ph - Home Meds: 14:19 folic acid 1 mg Oral tab [Active]; pantoprazole 40 mg Oral TbEC once daily [Active]; ph - PMHx: 14:19 Alcoholism; GERD; UTI; ph - PSHx: 14:19 None; ph - Immunization history:: Adult Immunizations up to date. - Social history:: Smoking status: Patient denies any tobacco usage or history of. Patient uses alcohol, on a daily basis. " 1 or 2 drinks". ROS: 14:25 Constitutional: Negative for body aches, chills, fever, poor PO intake. cp 14:25 Eyes: Negative for injury, pain, redness, and discharge. cp 14:25 ENT: Negative for ear pain, sore throat, difficulty swallowing, difficulty handling secretions. 14:25 Cardiovascular: Negative for chest pain. 14:25 Respiratory: Negative for cough, wheezing. 14:25 Abdomen/GI: Negative for abdominal pain, nausea, vomiting, and diarrhea. 14:25 Neuro: Negative for dizziness, headache, syncope, weakness. 14:25 Psych: Positive for alcohol dependence, visual hallucinations, Negative for homicidal ideation, suicide gesture, suicidal ideation. 14:25 All other systems are negative. Exam: 14:30 Constitutional: The patient appears in no acute distress, alert, awake, cp non-diaphoretic, non-toxic, well developed, well nourished. 14:30 Head/Face: Normocephalic, atraumatic. cp 14:30 Eyes: Periorbital structures: appear normal, Conjunctiva: normal, no exudate, no injection, Sclera: no appreciated abnormality, Lids and lashes: appear normal, bilaterally. 14:30 ENT: External ear(s): are unremarkable, Nose: is normal, Mouth: Lips: moist, Oral mucosa: moist, Posterior pharynx: Airway: no evidence of obstruction, patent. 14:30 Neck: ROM/movement: is normal, is supple, without pain, no range of motions limitations. 14:30 Chest/axilla: Inspection: normal, Palpation: is normal, no crepitus, no tenderness. 14:30 Cardiovascular: Rate: normal, Rhythm: regular, Edema: is not appreciated, JVD: is not appreciated. 14:30 Respiratory: the patient does not display signs of respiratory distress, Respirations: normal, no use of accessory muscles, no retractions, labored breathing, is not present, Breath sounds: are clear throughout, no decreased breath sounds, no stridor, no wheezing. 14:30 Abdomen/GI: Inspection: abdomen appears normal, Palpation: abdomen is soft and non-tender, in all quadrants. 14:30 Neuro: Orientation: to person, place \\T\\ time. Mentation: lucid, able to follow commands, Cerebellar function: is grossly normal, Motor: moves all fours, strength is normal, Sensation: is normal. 14:30 Psych: Affect is calm, Patient has no thoughts/intents to harm self or others. Judgement / Insight is normal. Delusions/hallucinations no active auditory or visual hallucinations. 16:07 ECG was reviewed by the Attending Physician. cp Vital Signs: 14:14 BP 135 / 72; Pulse 85; Resp 18; Temp 98.3(O); Pulse Ox 98% on R/A; Weight 52.16 kg; ph Height 5 ft. 4 in. (162.56 cm); Pain 0/10; 14:14 Body Mass Index 19.74 (52.16 kg, 162.56 cm) ph MDM: 14:19 Patient medically screened. cp 17:40 Data reviewed: vital signs, nurses notes, lab test result(s), EKG, radiologic studies, cp CT scan. 17:40 Test interpretation: by ED physician or midlevel provider: ECG. Counseling: I had a cp detailed discussion with the patient and/or guardian regarding: the historical points, exam findings, and any diagnostic results supporting the discharge/admit diagnosis, lab results, radiology results, to return to the emergency department if symptoms worsen or persist or if there are any questions or concerns that arise at home. ED course: VSS. Patient observed and no signs of respiratory distress, appears non-toxic. No active hallucinating observed. Discussed results of labs, CT head with patient and . Feel comfortable to continue to monitor patient at home and are requesting discharge. 06/17 14:18 Order name: Basic Metabolic Panel cp 06/17 14:18 Order name: CBC with Diff cp 06/17 15:56 Interpretation: Normal except: WBC 3.4; RBC 3.21; HGB 11.7; HCT 33.5; MCV 104.3; MCH cp 36.4; PLT 149; RDW 20.8; MPV 7.2. 06/17 14:18 Order name: LFT's; Complete Time: 16:30 06/17 14:18 Order name: Magnesium; Complete Time: 16:30 cp 06/17 14:18 Order name: NT PRO-BNP; Complete Time: 16:30 cp 06/17 14:18 Order name: PT-INR; Complete Time: 15:55 06/17 14:18 Order name: Troponin (emerg Dept Use Only); Complete Time: 16:30 cp 06/17 14:18 Order name: XRAY Chest (1 view); Complete Time: 15:55 cp 06/17 14:18 Order name: ETOH Level; Complete Time: 15:55 06/17 16:06 Interpretation: Abnormal: ETOH 121. cp 06/17 14:18 Order name: AMMONIA; Complete Time: 15:55 cp 06/17 16:07 Interpretation: JAMIE 15; Reviewed. 06/17 14:18 Order name: Urine Microscopic Only; Complete Time: 15:02 cp 06/17 15:02 Interpretation: Reviewed. 06/17 14:19 Order name: Basic Metabolic Panel; Complete Time: 16:30 EDMS 06/17 14:27 Order name: Urine Dipstick--Ancillary (enter results); Complete Time: 15:55 eb 06/17 16:36 Order name: UDS; Complete Time: 18:33 cp 06/17 18:33 Interpretation: Reviewed. 06/17 14:18 Order name: EKG; Complete Time: 14:19 cp 06/17 14:18 Order name: Cardiac monitoring; Complete Time: 16:08 cp 06/17 14:18 Order name: EKG - Nurse/Tech; Complete Time: 16:08 06/17 14:18 Order name: IV Saline Lock; Complete Time: 14:55 06/17 14:18 Order name: Labs collected and sent; Complete Time: 14:55 06/17 14:18 Order name: O2 Per Protocol; Complete Time: 15:16 06/17 14:18 Order name: O2 Sat Monitoring; Complete Time: 15:16 06/17 14:18 Order name: CT Head Brain wo Cont; Complete Time: 15:55 06/17 14:18 Order name: Urine Dipstick-Ancillary (obtain specimen); Complete Time: 14:27 cp EC:07 Rate is 77 beats/min. Rhythm is regular. AL interval is normal. QRS interval is normal. cp QT interval is normal. T waves are Inverted in lead aVR. Interpreted by me. Reviewed by me. Administered Medications: 17:50 Drug: Potassium Effervescent Tablet 50 mEq Route: PO; ph 18:32 Follow up: Response: No adverse reaction ph 18:32 Follow up: Response: No adverse reaction ph 17:50 Drug: Magnesium Sulfate 1 grams Route: IVPB; Infused Over: 1 hrs; Site: right forearm; ph 18:32 Follow up: Response: No adverse reaction; IV Status: Completed infusion ph 18:32 Not Given (Other Intervention Used): Banana Bag - (NS 0.9% 1000 ml, foLIC Acid 1 mg, ph Thiamine 100 mg, Multivitamin 1 amp) IV at 250 ml/hr once Disposition: 06/18 07:41 Co-signature as Attending Physician, Paul Melvin MD. rn Disposition: 06/17/20 17:42 Discharged to Home. Impression: Alcohol abuse with intoxication. - Condition is Stable. - Discharge Instructions: Alcohol Intoxication, Alcohol Abuse and Nutrition. - Medication Reconciliation Form, Thank You Letter, Antibiotic Education, Prescription Opioid Use form. - Follow up: Private Physician; When: 1 - 2 days; Reason: Recheck today's complaints. - Problem is new. - Symptoms have improved. Signatures: Dispatcher [employer] EDMS Paul Melvin MD MD rn Paula Quezada RN RN ph Page, JUVE Knapp PA cp Corrections: (The following items were deleted from the chart) 06/17 15:55 14:20 This 70 yrs old Female presents to ER via EMS with complaints of cp Breathing Difficulty. cp 19:18 17:42 06/17/2020 17:42 Discharged to Home. Impression: Alcohol abuse with intoxication. ph Condition is Stable. Forms are Medication Reconciliation Form, Thank You Letter, Antibiotic Education, Prescription Opioid Use. Follow up: Private Physician; When: 1 - 2 days; Reason: Recheck today's complaints. Problem is new. Symptoms have improved. cp
[2020-06-17 17:49] LABS: Barbiturates NEGATIVE (NEGATIVE); Benzodiazepines NEGATIVE (NEGATIVE); Cocaine NEGATIVE (NEGATIVE); METHAMPHETAM NEGATIVE (NEGATIVE); Methadone NEGATIVE (NEGATIVE); Opiates NEGATIVE (NEGATIVE); Phencyclidine NEGATIVE (NEGATIVE); THC Cannibis NEGATIVE (NEGATIVE)
[2020-06-17 19:26] LABS: Anisocytosis 1+; Blood Morphology Comment NOTED (NOT SEEN); Platelet Estimate ADEQ; White Blood Cell Scan OK (OK)
[2020-06-22 04:40] VITALS: BP 135/72; TEMP 98.3; O2SAT 98
== END 2020-06-17 19:18 | disposition home or self-care (01) ==
LOC: ER 14:08
DX: F10.229 Alcohol dependence with intoxication, unspecified (principal); K21.9 Gastro-esophageal reflux disease without esophagitis; Z88.5 Allergy status to narcotic agent
CPT/HCPCS: 96365; 93005; 85025; 80048; 36415; 80320; 82140; 83735; 85610; 80076; 80307 ×8; 84484; 83880; 70450; 71045; 99284; J3475; 81003; 81015

== ENCOUNTER 2020-09-05 20:11 | Emergency (ER) | payer OTHER, MEDICARE ==
--- OUTSIDE RECORDS SUMMARY | 2020-09-05 20:18 | XMS REPORT | Continuity of Care Document ---
:1950 Author Organization [facility] t Address [address] [place] [address] Care Team Providers Name Role Phone Fer Esparza MD Attending Clinician [phone] Paola Ramírez MD Attending Clinician [phone] FER ESPARZA Attending Clinician Unavailable PAOLA RAMÍREZ Admitting Clinician Unavailable Payers Payer Name Policy Type Policy Effective Date Expiration Date Sour ce Number MEDICAREMEDICARE A [id number] 2015 ROSHAN Dorantes t Micki [id number] 2014-P 00:00:00 - Medical resentMedicare Center Problems [...] Active Info Not [facility] Reaction Available [facility] [place] Adverse Active Info Not [facility] Reaction Available [facility] Social History Social Habit Start Date Stop Date Quantity Comments Source Sex Assigned At [facility] Medications Ordered Filled Start Stop Current Ordering Indication Dosage Frequency Signature Comments Components Source Medication Medication Date Date Medication? Clinician (SIG) Name Name Cefdinir Cefdinir 2019- Carin as [facility] St 02-27 Maddison directed [facility]00 [facility] 00 :00 [facility] Vital Signs Vital Name Observation Time Observation Value Comments Source Systolic blood 2020-03-14 12:22:00 138 mm[Hg] [facility] Diastolic blood 2020-03-14 12:22:00 63 mm[Hg] [facility] S [facility] Heart rate 2020-03-14 12:22:00 77 /min [facility] Body temperature 2020-03-14 12:22:00 36.17 Stella [facility] Respiratory rate 2020-03-14 12:22:00 18 /min [facility] Oxygen saturation in 2020-03-14 12:22:00 99 /min [facility] Arterial blood by Medical Ce nter Pulse oximetry Body weight 2020-03-10 14:00:00 59.9 kg [facility] Procedures Procedure Date / Time Performed Performing Clinician Dewayne rhodes POCT-GLUCOSE METER 2020-03-14 12:24:00 [facility] POCT-GLUCOSE METER 2020-03-14 05:37:00 [facility] COMPREHENSIVE METABOLIC 2020-03-14 05:26:00 Shani [facility] MAGNESIUM 2020-03-14 05:26:00 [facility]OS[facility] 2020-03-14 05:26:00 [facility] CBC W/PLT COUNT & AUTO 2020-03-14 05:26:00 [facility] DI[facility] POCT-GLUCOSE METER 2020-03-13 23:47:00 [facility] POCT-[facility]UCOSE METER 2020-03-13 14:07:00 [facility] POCT-GLUCOSE METER 2020-03-13 12:28:00 [facility] COMPREHENSIVE METABOLIC 2020-03-13 07:33:00 ShaniApke [facility] MAGNESIUM 2020-03-13 07:33:00 Shani, Madi [facility] PHOSPHORUS 2020-03-13 07:33:00 Shani, Madi [facility] POCT-GLUCOSE METER 2020-03-13 07:24:00 [facility]ER 2020-03-13 06:52:00 [facility] CBC W/PLT COUNT & AUTO 2020-03-13 05:56:00 [facility] POCT-GLUCOSE METER 2020-03-12 16:01:00 [facility] POCT-[facility]UCOSE METER 2020-03-12 12:56:00 [facility] POTASSIUM 2020-03-12 12:11:00 [facility] POCT-GLUCOSE METER 2020-03-12 08:41:00 [facility] CBC W/PLT COUNT & AUTO 2020-03-12 03:12:00 Shani Madi [facility] DIFFERENTIAL [facility] COMPREHENSIVE METABOLIC 2020-03-12 03:12:00 Shani, Madi [facility] MAGNESIUM 2020-03-12 03:12:[address] [facility] PHOSPHORUS 2020-03-12 03:12:00 Shani [facility] POCT-GLUCOSE METER 2020-03-11 19:41:00 [facility] POCT-GLUCOSE METER 2020-03-11 17:59:00 [facility] POCT-GLUCOSE METER 2020-03-11 12:18:00 [facility] POCT-GLUCOSE METER 2020-03-11 05:34:00 Odilia Rubin [facility] CBC W/PLT COUNT & AUTO 2020-03-11 04:42:00 Shani [facility] S t [facility] DIFFERENTIAL [facility] COMPREHENSIVE METABOLIC 2020-03-11 04:42:00 Shani [facility] PANEL [facility] MAGNESIUM 2020-03-11 04:42:00 Shani, [facility] PHOSPHORUS 2020-03-11 04:42:00 [facility] RAPID DRUG SCREEN, URINE 2020-03-11 02:45:00 [facility] SODIUM, RANDOM URINE 2020-03-11 02:45:00 [facility] CREATININE, RANDOM URINE 2020-03-11 02:45:00 [facility] UREA NITROGEN, RANDOM 2020-03-11 02:45:00 [facility] URINE [facility] URINALYSIS W/ REFLEX 2020-03-11 02:44:00 [facility] URINE CULTURE [facility] OSMOLALITY, URINE 2020-03-11 02:44:00 [facility] POCT-GLUCOSE METER 2020-03-11 00:48:00 Odilia Rubin [facility] LACTIC ACID, VENOUS 2020-03-10 21:05:00 Shani Madi [facility] POCT-GLUCOSE METER 2020-03-10 17:59:00 Odilia Rubin [facility] BLOOD CULTURE 2020-03-10 14:42:00 Shani [facility] SARS-COV2/RT-PCR (HS & 2020-03-10 14:27:00 Shani [facility] - REF LABS) [facility] CALCIUM, IONIZED 2020-03-10 14:19:00 [facility] CBC W/PLT COUNT & AUTO 2020-03-10 14:16:00 Shani [facility] t [facility] - DIFFERENTIAL [facility] BLOOD CULTURE 2020-03-10 14:16:00 [facility] COMPREHENSIVE METABOLIC 2020-03-10 14:16:00 [facility] MAGNESIUM 2020-03-10 14:16:00 Shani [facility] PHOSPHORUS 2020-03-10 14:16:00 [facility] B-TYPE NATRIURETIC FACTOR 2020-03-10 14:16:00 Madi Mcleod I [facility] (BNP) [facility] LIPASE 2020-03-10 14:16:00 Shani [facility] AMYLASE 2020-03-10 14:16:00 Shani [facility] TRIGLYCERIDES 2020-03-10 14:16:00 Shani [facility] PT/APTT 2020-03-10 14:16:00 Shani [facility] FIBRINOGEN 2020-03-10 14:16:00 Shani [facility] BLOOD GAS, VENOUS 2020-03-10 14:16:00 Shani [facility] AMMONIA 2020-03-10 14:16:00 [facility] TROPONIN I 2020-03-10 14:16:00 [facility] HEPATITIS PANEL, ACUTE 2020-03-10 14:16:00 [facility] S t [facility] LACTIC ACID, VENOUS 2020-03-10 14:16:00 [facility] PROCALCITONIN 2020-03-10 14:16:00 [facility] OSMOLALITY, SERUM 2020-03-10 14:16:00 [facility] TSH/FREE T4 IF INDICATED 2020-03-10 14:16:00 [facility] CORTISOL 2020-03-10 14:16:00 [facility] T4, FREE 2020-03-10 14:16:00 [facility] Plan of Care Planned Activity Planned Date [...] 00:00:00 (1 of 1 - [facility] [id number] PCV13) [code = PNEUMOCOCCAL 65+ YRS (1 of - [id number] PCV13)] Future Scheduled [address] [facility] - Test 00:00:00 [facility] breast (procedure) [code = 921993499] Future Scheduled [address] [facility] - Test 00:00:00 [facility] colon (procedure) [code = 942303190] Encounters Start End Encounter Admission Attending Care Care Encounter Source Date/Time Date/Time Type Type Clinicians Facility Department ID 2020-06-21 2020-06-21 Outpatient [facility] [id number] [facility] 2020-06-06 2020-06-06 [id number] 2020-06-06 2020-06-06 Outpatient [facility] [id number] [facility] 2020-02-28 2020-02-28 [facility] [id number] 09:52:00 09:52:00 t Specialty/U [facility]li [facility] - [facility]rology Clinic l Clinic Outpati ent Clinics 2020-02-25 2020-02-25 [facility] [id number] 11:00:00 11:00:00 t Specialty/U Yareli kes - Specialty rology [facility]Urology Clinic l Clinic Outpati ent Clinics 2019-12-29 2019-12-29 [facility] [id number] 10:02:00 10:02:00 t Specialty/U Yareli kes - Specialty rology [facility]Urology Clinic l Clinic Outpati ent Clinics 2019-12-29 2019-12-29 [facility] [id number] 10:02:00 10:02:00 t Specialty/U Yareli kes - Specialty rology [facility]rology Clinic l Clinic Outpati ent Clinics 2019-12-13 2019-12-13 [facility] [id number] 11:00:00 11:00:00 t Specialty/U Yareli kes - Specialty rology [facility]Urology Clinic l Clinic Outpati ent Clinics 2019-12-13 2019-12-13 [facility] [id number] 08:52:00 08:52:00 t Specialty/U Yareli kes - Specialty rology [facility]Urology Clinic l Clinic Outpati ent Clinics 2019-10-14 2019-10-14 [facility] [id number] 11:03:00 11:03:00 t Specialty/U Yareli kes - Specialty rology [facility]Urology Clinic l Clinic Outpati ent Clinics 2019-10-12 2019-10-12 [facility] [id number] 13:32:00 13:32:00 t Specialty/U Yareli kes - Specialty rology [facility] /Urology Clinic l Clinic Outpati ent Clinics 2019-08-30 2019-08-30 [facility] [id number] 11:46:00 11:46:00 t [facility] Medicine Medicine Outpati ent Clinics 2019-08-22 2019-08-22 [facility] [id number] 12:35:00 12:35:00 t [facility] Medicine Outpati ent Clinics 2019-08-18 2019-08-18 [facility] [id number] 10:45:00 10:45:00 t [facility] Medicine Outpati ent Clinics 2019-06-21 2019-06-21 [facility] [id number] 10:00:00 10:00:00 t Specialty/U Yareli kes - Specialty rology Mem[facility] a /Urology Clinic l Clinic Outpati ent Clinics 2019-06-01 2019-06-01 [facility] [id number] 10:00:00 10:00:00 t [facility] Medicine Outpati ent Clinics 2019-05-18 2019-05-18 [facility] [id number] 10:40:00 10:40:00 t [facility] Medicine Outpati ent Clinics 2019-04-19 2019-04-19 [facility] [id number] 23:36:00 23:36:00 t [facility] Medicine Outpati ent Clinics 2019-04-03 2019-04-03 [facility] [id number] 04:57:00 04:57:00 t [facility] Medicine Outpati ent Clinics 2019-03-17 2019-03-17 [facility] [id number] 21[facility]43:00 21:43:00 t [facility] Medicine Outpati ent Clinics 2019-03-17 2019-03-17 [facility] [id number] 10:40:00 10:40:00 t [facility] Medicine Outpati ent Clinics 2019-03-08 2019-03-08 [facility] [id number] 15:04:00 15:04:00 t [facility] Medicine Outpati ent Clinics 2019-03-01 2019-03-01 [facility] [id number] 20:32:00 20:32:00 t [facility] Medicine Outpati ent Clinics 2019-02-26 2019-02-26 [facility] [id number] 16:08:00 16:08:00 t [facility] Medicine Outpati ent Clinics 2019-02-22 2019-02-22 [facility] [id number] 08:19:00 08:19:00 t [facility] Medicine Outpati ent Clinics 2019-02-15 2019-02-15 [facility] [id number] 09:20:00 09:20:00 t [facility] Medicine Outpati ent Clinics 2019-01-18 2019-01-18 [facility] [id number] 10:00:00 10:00:00 t Specialty/U Yareli kes - Specialty rology [facility] a /Urology Clinic l Clinic Outpati ent Clinics 2018-09-02 2018-09-02 [facility] [id number] 10:45:00 10:45:00 t [facility] Medicine Outpati ent Clinics 2018-07-21 2018-07-21 [facility] [id number] 09:30:00 09:30:00 t Specialty/U Yareli kes - Specialty rology Memori a /Urology Clinic l Clinic Outpati ent Clinics 2018-03-11 2018-03-11 [facility] [id number] 09:30:00 09:30:00 t Specialty/U Yareli kes - Specialty rology Mem[facility] /Urology Clinic l Clinic Outpati ent Clinics 2018-02-19 2018-02-19 [facility] [id number] 09:00:00 09:00:00 t Specialty/U Yareli kes - Specialty rology [facility] /Urology Clinic l Clinic Outpati ent Clinics 2018-01-16 2018-01-16 [facility] [id number] 15:30:00 15:30:00 t Specialty/U Yareli kes - Specialty rology [facility] /Urology Clinic l Clinic Outpati ent Clinics 2017-12-25 2017-12-25 [facility] [id number] 10:38:00 10:38:00 t Specialty/U Yareli kes - Specialty rology [facility] /Urology Clinic l Clinic Outpati ent Clinics 2017-12-24 2017-12-24 [facility] [id number] 09:52:00 09:52:00 t Specialty/U Yareli kes - Specialty rology [facility] /Urology Clinic l Clinic Outpati ent Clinics 2017-12-11 2017-12-11 [facility] [id number] 09:30:00 09:30:00 t Specialty/U Yareli kes - Specialty rology Memori [facility] /Urology Clinic l Clinic Outpati ent Clinics 2017-12-09 2017-12-09 [facility] [id number] 09:35:00 09:35:00 t Specialty/U Yareli kes - Specialty rology Mem[facility] a /Urology Clinic l Clinic Outpati ent Clinics 2017-11-20 2017-11-20 [facility] [id number] 09:00:00 09:00:00 t Specialty/U Yareli kes - Specialty rology Memori a /Urology Clinic l Clinic Outpati ent Clinics 2017-11-06 2017-11-06 [facility] [id number] 10:05:00 10:05:00 t Specialty/U Yareli kes - Specialty rology Memori a /Urology Clinic l Clinic Outpati ent Clinics 2017-11-06 2017-11-06 [facility] [id number] 09:12:00 09:12:00 t Specialty/U Yareli kes - Specialty rology Memori a /Urology Clinic l Clinic Outpati ent Clinics 2017-11-04 2017-11-04 [facility] [id number] 09:45:00 09:45:00 t Specialty/U Yareli kes - Specialty rology Memori a /Urology Clinic l Clinic Outpati ent Clinics 2017-10-20 2017-10-20 [facility] [id number] 08:45:00 08:45:00 t [facility] Outpati ent Clinics Results Test Description Test Time Test Comments Results Result Comments Source Blood Culture - Routine (Right Venipuncture) 2020-03-15 17:0 0:00 Test Item Value Reference Range Interpretation Comme nts Result (test code = 6463-4) No growth in 5 days [facility] [id number] 17:00:00 Test Item Value Reference Range Interpretation Comments CULTURE (BEAKER) (test No growth in 5 days code = 1095) BLOOD [id number] 15:00:00 Test Item Value Reference Range Interpretation Comments CULTURE (BEAKER) (test No growth in 5 days code = 1095) POC-Glucose [id number] 12:35:00 Test Item Value Reference Range Interpretation Comments POC-Glucose Meter (test 103 mg/dL 70-110 : TE STED AT [facility] code = 1538) 67[address] [facility], 770 30: Vice President Network Development/Techni benjamin ID = [id number] for EMILY SOLITARIO Lab Interpretation (test Normal code = 37537-7) [facility] [id number] 12:35:00 Test Item Value Reference Range Interpretation Comments POC-GLUCOSE METER 103 mg/dL 70-110 : TESTED A T [facility] 6720 (BEAKER) (test code = SHABBIR Jiménez [facility], 1538) [address]: Vice President Network Development/Techni benjamin ID = [id number] for EMILY EATON CBC with platelet count + automated [id number] 06:54:00 Test Item Value Reference Range Interpretation Comments WBC (test code = 6690-2) 3.5 See_Comment [A utomated message] The system INFIM[employer] generated this result transmitted ref erence range: 3.5 - 10 .5 K/L. The refe rence range was not u sed to interpret this result as normal/abnor mal. RBC (test code = 789-8) 2.79 See_Comment L [Au tomated message] The system [employer] generated this result transmitted ref erence range: 3.93 - 5 .22 M/L. The refe rence range was not u sed to interpret this result as normal/abnor mal. MCHC (test code = 786-4) 36.0 See_Comment H [A utomated message] The system [employer] generated this result transmitted ref erence range: 32.2 - 3 5.5 GM/DL. The refe rence range was not u sed to interpret this result as normal/abnor mal. Hematocrit (test code = 29.2 % 34.1-44.9 L 4544-3) MCV (test code = 787-2) 104.7 fL 79.4-94.8 H MCH (test code = 785-6) 37.6 pg 25.6-32.2 H RDW (test code = 788-0) 14.8 % 11.7-14.4 H Platelets (test code = 80 See_Comment L [Aut omated message] 777-3) The system [employer] generated this result transmitted ref erence range: 150 - 45 0 K/CU MM. The referen ce range was not u sed to interpret this result as normal/abnor mal. MPV (test code = 10.5 fL 9.4-12.3 50964-0) nRBC (test code = 413) 0 See_Comment [Aut omated message] The system [employer] generated this result transmitted ref erence range: 0 - 0 /1 00 WBC. The refere nce range was not u sed to interpret this result as normal/abnor mal. % Neutros (test code = 56 % 429) % Lymphs (test code = 12 % 430) % Monos (test code = 28 % 431) % Eos (test code = 432) 2 % % Baso (test code = 437) 0 % # Neutros (test code = 1.92 See_Comment [Aut omated message] 670) The system [employer]IM[employer] generated this result transmitted ref erence range: 1.56 - 6 .13 K/L. The refe rence range was not u sed to interpret this result as normal/abnor mal. # Lymphs (test code = 0.43 See_Comment L [Auto mated message] 414) The system [employer]FIM[employer] generated this result transmitted ref erence range: 1.18 - 3 .74 K/L. The refe rence range was not u sed to interpret this result as normal/abnor mal. # Monos (test code = 0.98 See_Comment H [Autom ated message] 415) The system [employer] generated this result transmitted ref erence range: 0.24 - 0 .36 K/L. The refe rence range was not u sed to interpret this result as normal/abnor mal. # Eos (test code = 416) 0.07 See_Comment [Au tomated message] The system [employer] generated this result transmitted ref erence range: 0.04 - 0 .36 K/L. The refe rence range was not u sed to interpret this result as normal/abnor mal. # Baso (test code = 417) 0.01 See_Comment [A utomated message] The system INFIM[employer] generated this result transmitted ref erence range: 0.01 - 0 .08 K/L. The refe rence range was not u sed to interpret this result as normal/abnor mal. Immature 1 % 0-1 Granulocytes-Relative (test code = 2801) Lab Interpretation (test Abnormal code = 25188-2) [facility] W/PLT COUNT & AUTO [id number] 06:54:00 Test Item Value Reference Range Interpretation [...] (BEAKER) (test code = 2801) Comprehensive metabolic [id number] 06:45:00 Test Item Value Reference Range Interpretation Comments Protein, Total (test 5.1 See_Comment L [Autom ated code = 8495-2) message] The system which generated this result transmit enrique reference range : 6.0 - 8.3 gm/dL . The reference range was not u sed to interpret th is result as normal/abnormal . Albumin (test code = 3.0 g/dL 3.5-5 L 43230-9) Alkaline Phosphatase 128 U/L 40-150 (test code = 6768-6) Total Bilirubin (test 2.5 mg/dL 0.2-1.2 H code = 1975-2) Sodium (test code = 132 meq/L 136-145 L 2951-2) Potassium (test code 2.5 meq/L 3.5-5.1 LL = 2823-3) Chloride (test code = 98 meq/L 98-107 2075-0) CO2 (test code = 21 meq/L 22-29 L 2028-9) BUN (test code = 10 mg/dL 7-21 3094-0) Creatinine (test code 0.55 mg/dL 0.57-1.25 L = 2160-0) Glucose (test code = 89 mg/dL 70-105 2345-7) Calcium (test code = 7.6 mg/dL 8.4-10.2 L 93732-4) AST (test code = 75 U/L 5-34 H 1920-8) ALT (test code = 64 U/L 6-55 H 1742-6) EGFR (test code = 109 mL/min/1.73 [place] [address]-1) NOT ACCURATE CREATININE CLEARANCE IN PREDICTING GLOMERULAR FILTRATION RATE . ESTIMATED GFR I S NOT APPLICABLE FOR DIALYSIS PATIEN TS. MICHAEL (test code = MICHAEL) Vice President Network Development ID - EDASI Lab Interpretation Abnormal (test code = 89495-7) [facility] Center[facility]PRE[facility]IVE METABOLIC [id number] 06:45:00 Test Item Value Reference Range Interpretation [...] S NOT APPLICABLE FOR DIALYSIS PATIEN TS. Vice President Network Development ID - [id number] 06:34:00 Test Item Value Reference Range Interpretation Comments Magnesium (test code = 1.6 mg/dL 1.6-2.6 37348-1) MICHAEL (test code = MICHAEL) Vice President Network Development ID - EDASI Lab Interpretation (test Normal code = 71650-2) [facility] Center[facility]osph[facility]2020-09-01 06:34:00 Test Item Value Reference Range Interpretation Comments Phosphorus (test code = 2.3 mg/dL 2.3-4.7 2777-1) MICHAEL (test code = MICHAEL) Vice President Network Development ID - EDASI Lab Interpretation (test Normal code = 57742-5) [facility] Center[facility]OSPH[facility]US2020-09-01 06:34:00 Test Item Value Reference Range Interpretation Comments PHOSPHORUS (BEAKER) (test code = 2.3 mg/dL 2.3-4.7 604) Vice President Network Development ID - [id number] 06:34:00 Test Item Value Reference Range Interpretation Comments MAGNESIUM (BEAKER) (test code = 1.6 mg/dL 1.6-2.6 627) [employer] President Network Development ID - EDASIPOCT-GLUCOSE [id number] 05:48:00 Test Item Value Reference Range Interpretation Comments POC-GLUCOSE METER 86 mg/dL 70-110 : TESTED A T [facility] 6720 (BEAKER) (test code = [facility], 1538) 16953: Vice President Network Development/Techni benjamin ID = [id number] for SAND ERS, KRAIG POCT-GLUCOSE [id number] 23:58:00 Test Item Value Reference Range Interpretation Comments POC-GLUCOSE METER 94 mg/dL 70-110 : TESTED A T [facility] 6720 (BEAKER) (test code = [facility], 1538) 97448: Vice President Network Development/Techni benjamin ID = [id number] for SAND ERS, KRAIG POCT-GLUCOSE [id number] 14:18:00 Test Item Value Reference Range Interpretation Comments POC-GLUCOSE METER 93 mg/dL 70-110 : TESTED A T [facility] 6720 (BEAKER) (test code = [facility], 1538) 69387: Vice President Network Development/Techni benjamin ID = [id number] for Sylvia Owens POCT-GLUCOSE [id number] 12:42:00 Test Item Value Reference Range Interpretation Comments POC-GLUCOSE METER 96 mg/dL 70-110 : TESTED A T [facility] 6720 (BEAKER) (test code = [facility], 1538) 76039: Vice President Network Development/Techni benjamin ID = [id number] for Brianne lynnmayda Paco [id number] 08:22:00 Test Item Value Reference Range Interpretation Comments PHOSPHORUS (BEAKER) (test code = 1.3 mg/dL 2.3-4.7 LL 604) Vice President Network Development ID - PIAYA LCOMPREHENSIVE METABOLIC [id number] 08:21:00 Test Item Value Reference Range Interpretation [...] S NOT APPLICABLE FOR DIALYSIS PATIEN TS. Vice President Network Development ID Reymundo DAVIS [id number] 08:16:00 Test Item Value Reference Range Interpretation Comments MAGNESIUM (BEAKER) (test code = 1.3 mg/dL 1.6-2.6 L 627) [employer] President Network Development ID - RYAN LCBC W/PLT COUNT & AUTO [id number] 07:59:00 Test Item Value Reference Range Interpretation [...] PERCENT (BEAKER) (test code = 2801) POCT-GLUCOSE [id number] 07:35:00 Test Item Value Reference Range Interpretation Comments POC-GLUCOSE METER 98 mg/dL 70-110 : TESTED Joselito Armstrong [facility] 6720 (BEAKER) (test code = SHABBIR CHAN MA, 1538) 65027: Vice President Network Development/Techni benjamin ID = [id number] for Edson Gerardo POCT-GLUCOSE [id number] 07:03:00 Test Item Value Reference Range Interpretation Comments POC-GLUCOSE METER 103 mg/dL 70-110 : TESTED A T [facility] 6720 (BEAKER) (test code = [facility], 1538) 57553: Vice President Network Development/Techni benjamin ID = [id number] for Jaimee Mccoy POCT-GLUCOSE [id number] 16:13:00 Test Item Value Reference Range Interpretation Comments POC-GLUCOSE METER 110 mg/dL 70-110 : TESTED A T [facility] 6720 (BEAKER) (test code = [facility], 1538) 30324: Vice President Network Development/Techni benjamin ID = [id number] for Marietta Ramirez POCT-GLUCOSE [id number] 13:14:00 Test Item Value Reference Range Interpretation Comments POC-GLUCOSE METER 127 mg/dL 70-110 H : TESTED A T [facility] 6720 (BEAKER) (test code = [facility], 1538) 98222: Vice President Network Development/Techni benjamin ID = [id number] for Marietta Ramirez [id number] 12:48:00 Test Item Value Reference Range Interpretation Comments Potassium (test code = 3.1 meq/L 3.5-5.1 L Speci men 2823-3) slightly hemolyzed MICHAEL (test code = MICHAEL) [employer] President [employer] Development ID - JOHN C Lab Interpretation Abnormal (test code = 66492-5) [facility] Center[facility]OT[facility]UM2020-08-30 12:48:00 Test Item Value Reference Range Interpretation Comments POTASSIUM (BEAKER) 3.1 meq/L 3.5-5.1 L Specimen slightly (test code = 379) hemolyzed [employer] President [employer] Development ID - JOHN CPOCT-GLUCOSE [id number] 08:55:00 Test Item Value Reference Range Interpretation Comments POC-GLUCOSE METER 148 mg/dL 70-110 H : TESTED A T [facility] 6720 (BEAKER) (test code = [facility], 1538) 53105: Vice President Network Development/Techni benjamin ID = [id number] for Marietta Ramirez COMPREHENSIVE METABOLIC [id number] 04:19:00 Test Item Value Reference Range Interpretation [...] S NOT APPLICABLE FOR DIALYSIS PATIEN TS. [employer] President [employer] Development ID - RYAN LSpecimen slightly [id number] 04:19:00 Test Item Value Reference Range Interpretation Comments PHOSPHORUS (BEAKER) (test code = 1.5 mg/dL 2.3-4.7 LL 604) [employer] President [employer] ID - RYAN [id number] 04:16:00 Test Item Value Reference Range Interpretation Comments MAGNESIUM (BEAKER) (test code = 1.7 mg/dL 1.6-2.6 627) [employer] President [employer] ID - RYAN LCBC W/PLT COUNT & AUTO [id number] 03:32:00 Test Item Value Reference Range Interpretation [...] PERCENT (BEAKER) (test code = 2801) POCT-GLUCOSE [id number] 19:52:00 Test Item Value Reference Range Interpretation Comments POC-GLUCOSE METER 122 mg/dL 70-110 H : TESTED A T [facility] 6720 (BEAKER) (test code = SHABBIR Jiménez [facility], 1538) 28217: Vice President Network Development/Techni benjamin ID = [id number] for Jaimee Mccoy POCT-GLUCOSE [id number] 18:10:00 Test Item Value Reference Range Interpretation Comments POC-GLUCOSE METER 115 mg/dL 70-110 H : TESTED A T [facility] 6720 (BEAKER) (test code = SHABBIR Jiménez [facility], 1538) 25960: Vice President Network Development/Techni benjamin ID = [id number] for BONI HDZ SARS-CoV2/RT-PCR (Asymptomatic ONLY)2020-03-11 14:46:00 Test Item Value Reference Range Interpretation Comments SARS-COV2/RT-PCR Negative Not Detected, (test code = Negative, See 50317-1) external report for linked test SARS-COV-2 [facility] PERFORMING LAB (test code = 06915-0) MICHAEL (test code = Negative result for [...] of the Act. Fact Sheet for Healthcare Providers:https://www.Exalead/sites/default/f riley/product/documents/F act_Sheet_HC_Providers_L ayg_YSAN-DaU-0.pdf Fact Sheet for Healthcare Patients:https://www.Vcommerce/sites/default/fi les/product/documents/Fa ct_Sheet_Patients_Lyra_S ARS-CoV-2.pdf Performing Laboratory:[facility] [place] [address] [facility] ([facility])2020-03-11 14:46:00 Test Item Value Reference Range Interpretation Comments SARS-COV2/RT-PCR (test Negative Not Detected, Negative, code = 1971629) See external report for linked test SARS-COV-2 PERFORMING LAB [facility] (test code = 3422415) Negative result for this test determines that [...] 564(g) of the Act.Fact Sheet for Healthcare Providers:https://www.Wallix/sites/default/files/product/documents/Fact_Shee j_UJ_Lcjzbhhnb_Ogjd_TVBC-YpE-2.pdfFact Sheet for Healthcare Patients:https://www.Wallix/sites/default/files/product/ documents/Jqhj_Xxeuu_Aiskwers_Cnwx_VZRG-KbE-7.pdfPerforming Laboratory:[facility], [place] [address]DVAT-LFSLEYA METER 2020-03-11 12:29:00 Test Item Value Reference Range Interpretation Comments POC-GLUCOSE METER 117 mg/dL 70-110 H : TESTED A T [facility] 6720 (BEAKER) (test code = SHABBIR Jiménez [facility], 1538) 70945: Vice President Network Development/Techni benjamin ID = [id number] for RA MOS, BONI [id number] 06:39:00 Test Item Value Reference Range Interpretation Comments MAGNESIUM (BEAKER) 1.8 mg/dL 1.6-2.6 Specimen slightly (test code = 627) hemolyzed [employer] President [employer] Development ID - PIAYA [id number] 06:39:00 Test Item Value Reference Range Interpretation Comments PHOSPHORUS (BEAKER) 2.1 mg/dL 2.3-4.7 L Specimen slightly (test code = 604) hemolyzed [employer] President [employer] Development ID - PIAYA LCOMPREHENSIVE METABOLIC [id number] 06:39:00 Test Item Value Reference Range Interpretation [...] S NOT APPLICABLE FOR DIALYSIS PATIEN TS. [employer] President [employer] Development ID - PIAYA LSpecimen slightly ictericCBC W/PLT COUNT & AUTO [id number] 05:56:00 Test Item Value Reference Range Interpretation [...] PERCENT (BEAKER) (test code = 2801) POCT-GLUCOSE [id number] 05:51:00 Test Item Value Reference Range Interpretation Comments POC-GLUCOSE METER 114 mg/dL 70-110 H : TESTED A T [facility] 6720 (BEAKER) (test code = SHABBIR CHAN MA, 1538) 08124: Vice President Network Development/Techni benjamin ID = [id number] for DA BRICE, TRAVON Rapid drug screen, [id number] 04:12:00 Test Item Value Reference Range Interpretation Comments Barbiturate Screen Negative Negative (test code = 86675-6) Benzodiazepine Screen Negative Negative (test code = 00357-7) Cocaine (Metab.) Negative Negative Screen (test code = 3397-7) Methadone Screen (test Negative Negative code = 32824-8) Opiate Screen (test Negative Negative code = 93295-3) Cannabinoid Screen Negative Negative (test code = 71388-1) Amph/Methamph Screen Negative Negative (test code = 95339-5) Phencyclidine Screen Negative Negative (test code = 91142-9) pH, UA (test code = 6.0 5.0-8.0 5803-2) MICHAEL (test code = MICHAEL) DRUG CUTOFF CONC.Cocaine 300 ng/mL Cannabinoid 50 ng/mLBenzodiazepine 200 ng/mLBarbiturate 200 ng/mLPhencyclidine 25 ng/mLOpiate 300 ng/mLMethadone 300 ng/mLAmphetamine/ 1000 ng/mL Methamphetamine This assay provides an unconfirmed qualitative test result for the clinical management of patients in emergency situations. Chain of custody not maintained. Some yedy-dfz-ppmsjgn medications, as well as adulterants, may cause inaccurate results. Clinical correlation should be applied. A more comprehensive drug screen or confirmation of a detected drug may be performed upon request.Vice President Network Development ID - WIN M Lab Interpretation Normal (test code = 82244-5) [facility] CenterRAPID DRUG SCREEN, [id number] 04:12:00 Test Item Value Reference Range Interpretation [...] situations. Chain of custody not maintained. Some jfty-gkl-patgguf medications, as well as adulterants, may cause inaccurate results. Clinical correlation should be applied. A more comprehensivedrug screen or confirmation of a detected drug may be performed upon request.Vice President [employer] Development ID - WIN MUrinalysis w/Microscopic + Reflex to [id number] 04:06:00 Test Item Value Reference Range Interpretation Comments Color, UA (test code Yellow = 5778-6) Clarity, UA (test Clear code = 5767-9) Specific [place], UA 1.018 1.001-1.035 (test code = 5811-5) pH, UA (test code = 6.0 5.0-8.0 5803-2) Protein, UA (test Negative Negative code = 09101-3) Glucose, UA (test Negative Negative code = 365) Ketones, UA (test 10 mg/dL Negative A code = 2514-8) Bilirubin, UA (test Negative Negative code = 61456-4) Blood, UA (test code Negative Negative = 94865-2) Nitrite, UA (test Negative Negative code = 5802-4) Leukocytes, UA (test Negative Negative code = 5799-2) Urobilinogen, UA 0.2 mg/dL 0.2-1 (test code = 08557-7) RBC, UA (test code = 0 See_Comment [Autom ated 65439-4) message] The system which generated this result transmit enrique reference range : /HPF. The reference range was not used to interpret this result as normal/abnormal . WBC, UA (test code = 1 See_Comment [Autom ated 5821-4) message] The system which generated this result transmit enrique reference range : /HPF. The reference range was not used to interpret this result as normal/abnormal . Mucus (test code = Rare 8247-9) Hyaline Casts, UA 1 See_Comment [Automate d (test code = 08211-5) messag e] The system which generated this result transmit enrique reference range : /LPF. The reference range was not used to interpret this result as normal/abnormal . Amorphous Crystals Rare (test code = 43560-9) Specimen Source (test code = 2795) MICHAEL (test code = MICHAEL) [employer] President Network Development ID - [auto]Vice President Network Development ID - tech Lab Interpretation Abnormal (test code = 33752-8) [facility] CenterURINALYSIS W/ REFLEX URINE [id number] 04:06:00 Test Item Value Reference Range Interpretation [...] = 1584) SOURCE(BEAKER) (test code = 2795) [employer] President Network Development ID - [auto]Vice President Network Development ID - techOsmolality, sonse3403-81-92 04:02:00 Test Item Value Reference Range Interpretation Comments Osmolality, Ur (test code 630 See_Comment [ Automated message] = 2695-5) The system [employer] generated this result transmitted ref erence range: 50-1,200 mOsm/kg mOsm/kg . The reference range was not used to int erpret this result as normal/abnormal . Lab Interpretation (test Normal code = 49141-8) [facility] CenterOSMOLALITY, [id number] 04:02:00 Test Item Value Reference Range Interpretation Comments OSMOLALITY URINE (BEAKER) (test 630 mOsm/kg 50-1,200 mOsm/kg code = 614) Creatinine, random [id number] 03:18:00 Test Item Value Reference Range Interpretation Comments Creatinine, Ur 47.2 mg/dL (test code = 2161-8) MICHAEL (test code = Reference Range: No MICHAEL) NormalsOperator ID - WIN [facility] random [id number] 03:18:00 Test Item Value Reference Range Interpretation Comments Sodium Urine (test 91 meq/L code = 2955-3) MICHAEL (test code = Reference Range: No MICHAEL) NormalsOperator ID - WIN [facility], random [id number] 03:18:00 Test Item Value Reference Range Interpretation Comments Urea Nitrogen, Ur 798 mg/dL (test code = 3095-7) MICHAEL (test code = Reference Range: No MICHAEL) NormalsOperator ID - WIN [facility] CenterCREATININE, RANDOM [id number] 03:18:00 Test Item Value Reference Range Interpretation Comments CREATININE URINE (BEAKER) (test 47.2 mg/dL code = 375) Reference Range: No NormalsOperator ID - WIN MSODIUM, RANDOM [id number] 03:18:00 Test Item Value Reference Range Interpretation Comments SODIUM URINE (BEAKER) (test code = 91 meq/L 243) Reference Range: No NormalsOperator ID - WIN MUREA NITROGEN, RANDOM URINE 2020-03-11 03:18:00 Test Item Value Reference Range Interpretation Comments UREA NITROGEN URINE (BEAKER) (test 798 mg/dL code = 538) Reference Range: No NormalsOperator ID - WIN MPOCT-GLUCOSE [id number] 01:01:00 Test Item Value Reference Range Interpretation Comments POC-GLUCOSE METER 114 mg/dL 70-110 H : TESTED A T [facility] 6720 (BEAKER) (test code = HSABBIR CHAN MA, 1538) 06567: Vice President Network Development/Techni benjamin ID = [id number] for TRAVON REYES Lactic acid, [id number] 21:31:00 Test Item Value Reference Range Interpretation Comments Lactate, Venous (test 1.31 mmol/L 0.5-2.2 Specim en code = 2872) slightly hemolyzed MICHAEL (test code = MICHAEL) Vice President Network Development ID - DBSpecimen slightly icteric Lab Interpretation Normal (test code = 48887-8) [facility] CenterLACTIC ACID, [id number] 21:31:00 Test Item Value Reference Range Interpretation Comments LACTATE BLOOD VENOUS 1.31 mmol/L 0.50-2.20 Specime n slightly (2) (BEAKER) (test hemolyzed code = 2872) [employer] President Network Development ID - DBSpecimen slightly ictericPOCT-GLUCOSE [id number] 18:10:00 Test Item Value Reference Range Interpretation Comments POC-GLUCOSE METER 114 mg/dL 70-110 H : TESTED A T [facility] 6720 (BEAKER) (test code = SHABBIR CHAN MA, 1538) 37305: Vice President Network Development/Techni benjamin ID = [id number] for SANTOS JACOBSON DD T4, [id number] 17:23:00 Test Item Value Reference Range Interpretation Comments Free T4 (test code = 3024-7) 1.00 ng/dL 0.7-1.48 MICHAEL (test code = MICHAEL) [employer] President Network Development ID - DB Lab Interpretation (test Normal code = 56884-9) [facility] CenterHepatitis panel, [id number] 17:23:00 Test Item Value Reference Range Interpretation Comments Hep A IgM (test code = Nonreactive Nonreactive 31279-4) Hep B C IgM (test code = Nonreactive Nonreactive 12544-5) Hepatitis C Ab (test code = Nonreactive Nonreactive 55048-7) HBsAg Screen (test code = Nonreactive Nonreactive 5195-3) MICHAEL (test code = MICHAEL) [employer] President [employer] Development ID - DB Lab Interpretation (test Normal code = 48421-5) [facility] CenterT4, [id number] 17:23:00 Test Item Value Reference Range Interpretation Comments FREE T4 (BEAKER) (test code = 655) 1.00 ng/dL 0.70-1.48 [employer] Development ID - DBHEPATITIS PANEL, [id number] 17:23:00 Test Item Value Reference Range Interpretation Comments HEPATITIS A IGM ANTIBODY (BEAKER) Nonreactive Nonreactive (test code = 498) HEPATITIS B CORE IGM ANTIBODY Nonreactive Nonreactive (BEAKER) (test code = 645) HEPATITIS C ANTIBODY (BEAKER) Nonreactive Nonreactive (test code = 367) HEPATITIS B SURFACE ANTIGEN (2) Nonreactive Nonreactive (BEAKER) (test code = 2585) [employer] President [employer] Development ID - DBTSH/Free T4 If Qhyeavpgb1996-06-52 15:51:00 Test Item Value Reference Range Interpretation Comments TSH (test code = 0.299 See_Comment L [Automated 05069-6) message] The system which generated this result transmit enrique reference range : 0.350 - 4.940 uIU/mL. The reference range was not used to interpret this result as normal/abnormal . MICHAEL (test code = MICHAEL) [employer] President Network Development ID - ALIDA B Lab Interpretation Abnormal (test code = 96325-7) [facility] CenterTSH/FREE T4 IF [id number] 15:51:00 Test Item Value Reference Range Interpretation Comments THYROID STIMULATING HORMONE 0.299 uIU/mL 0.350-4.940 L (BEAKER) (test code = 772) [employer] President [employer] Development ID - ALIDA HShpgvnfu3523-28-64 15:33:00 Test Item Value Reference Range Interpretation Comments Cortisol, Total (test code 58.2 ug/dL 3.7-19.4 H = 2755) MICHAEL (test code = MICHAEL) [employer] President [employer] Development ID - JOHN C Lab Interpretation (test Abnormal code = 03912-6) [facility] CenterCORTISOL2020-08-28 15:33:00 Test Item Value Reference Range Interpretation Comments CORTISOL, TOTAL (BEAKER) (test 58.2 ug/dL 3.7-19.4 H code = 2755) [employer] President [employer] Development ID - JOHN AFuxspaniytmwm0353-87-09 15:07:00 Test Item Value Reference Range Interpretation Comments Procalcitonin (test code = 1.40 ng/mL <0.05 H 59429-4) MICHAEL (test code = MICHAEL) SEPSIS RISK (ng/mL)Low: 0.05-0.50Intermedi ate: 0.51-2.00High: >=2.01 Lab Interpretation (test Abnormal code = 74981-9) [facility] CenterPROCALCITONIN2020-08-28 15:07:00 Test Item Value Reference Range Interpretation Comments PROCALCITONIN (BEAKER) (test code 1.40 ng/mL <0.05 H = 3036) SEPSIS RISK (ng/mL)Low: 0.05-0.50Intermediate: 0.51-2.00High: >=2.01B-type Natriuretic Factor (BNP)2020-03-10 14:52:00 Test Item Value Reference Range Interpretation Comments BNP (test code = 42836-4) 154 pg/mL 0-100 H MICHAEL (test code = MICHAEL) [employer] President [employer] Development ID - JOHN C Lab Interpretation (test Abnormal code = 17366-8) [facility] CenterTroponin [id number] 14:52:00 Test Item Value Reference Range Interpretation Comments Troponin I (test code = 0.04 ng/mL 0-0.03 H 00888-2) MICHAEL (test code = MICHAEL) Troponin I [...] C Lab Interpretation (test Abnormal code = 31720-5) [facility] CenterB-TYPE NATRIURETIC FACTOR (BNP)2020-03-10 14:52:00 Test Item Value Reference Range Interpretation Comments B-TYPE NATRIURETIC PEPTIDE (BEAKER) 154 pg/mL 0-100 H (test code = 700) [employer] President [employer] Development ID - JOHN CTROPONIN [id number] 14:52:00 Test Item Value Reference Range Interpretation [...] failure, acidosis, acute neurological disease, and persistent tachyarrhythmia.Vice President Network Development ID - JOHN COsmolality, serum 2020-03-10 14:47:00 Test Item Value Reference Range Interpretation Comments Osmolality Serum (test 287 See_Comment [Aut omated message] code = 2692-2) The system [employer] generated this result transmitted ref erence range: 275 - 29 5 mOsm/kg. The re ference range was not u sed to interpret this result as normal/abnor mal. Lab Interpretation (test Normal code = 59931-1) [facility] CenterOSMOLALITY, [id number] 14:47:00 Test Item Value Reference Range Interpretation Comments OSMOLALITY, SERUM (BEAKER) (test 287 mOsm/kg 275-295 code = 615) [id number] 14:46:00 Test Item Value Reference Range Interpretation Comments Amylase (test code = 397 U/L 25-125 H 1798-8) MICHAEL (test code = MICHAEL) [employer] President [employer] Development ID - JOHN Abernathyecimen slightly icteric Lab Interpretation (test Abnormal code = 20058-2) [facility] CenterLipase2020-08-28 14:46:00 Test Item Value Reference Range Interpretation Comments Lipase (test code = 689 U/L 8-78 H 3040-3) MICHAEL (test code = MICHAEL) [employer] President [employer] Development ID - JOHN CSpecimen slightly icteric Lab Interpretation (test Abnormal code = 93012-4) [facility] CenterTriglycerides2020-08-28 14:46:00 Test Item Value Reference Range Interpretation Comments Triglycerides (test 220 mg/dL code = 2571-8) MICHAEL (test code = MICHAEL) TRIGLYCERIDE REFERENCE RANGELow Risk <150Borderline Risk 150-199High Risk 200-499Very High Risk >=500Operator ID - JOHN CSpecimen slightly icteric [facility] CenterLIPASE2020-08-28 14:46:00 Test Item Value Reference Range Interpretation Comments LIPASE (BEAKER) (test code = 749) 689 U/L 8-78 H [employer] ID - JOHN CSpecimen slightly spknrjzFTRQDPLRX3054-86-26 14:46:00 Test Item Value Reference Range Interpretation Comments MAGNESIUM (BEAKER) (test code = 1.3 mg/dL 1.6-2.6 L 627) [employer] President [employer] Development ID - JOHN [id number] 14:46:00 Test Item Value Reference Range Interpretation Comments PHOSPHORUS (BEAKER) (test code = 1.8 mg/dL 2.3-4.7 L 604) [employer] President [employer] Development ID - JOHN [id number] 14:46:00 Test Item Value Reference Range Interpretation Comments TRIGLYCERIDES (BEAKER) (test code = 220 mg/dL 540) TRIGLYCERIDE REFERENCE RANGELow Risk <150Borderline Risk 150-199High Risk 200-499Very High Risk>=500Operator ID - JOHN CSpecimen slightly icteric COMPREHENSIVE METABOLIC [id number] 14:46:00 Test Item Value Reference Range Interpretation [...] S NOT APPLICABLE FOR DIALYSIS PATIEN TS. [employer] President [employer] Development ID - JOHN CSpecimen slightly [id number] 14:46:00 Test Item Value Reference Range Interpretation Comments AMYLASE (BEAKER) (test code = 349) 397 U/L 25-125 H [employer] Development ID - JOHN CSpecimen slightly tykxyttLspnnyhuzo6986-73-96 14:41:00 Test Item Value Reference Range Interpretation Comments Fibrinogen (test code = 3255-7) 115 mg/dl 225-434 L Lab Interpretation (test code = Abnormal 25046-5) [facility] CenterFIBRINOGEN2020-08-28 14:41:00 Test Item Value Reference Range Interpretation Comments FIBRINOGEN LEVEL (BEAKER) (test 115 mg/dl 225-434 L code = 658) [id number] 14:38:00 Test Item Value Reference Range Interpretation Comments Ammonia (test code = 40 See_Comment Specime n slightly 43367-5) hemolyzed [Automated message] The system which generated this result transmit enrique reference range : 18 - 72 mol/L . The reference range was not u sed to interpret th is result as normal/abnormal . MICHAEL (test code = MICHAEL) Vice President Network Development ID - JOHN C Lab Interpretation Normal (test code = 44060-9) [facility] CenterAMMONIA2020-08-28 14:38:00 Test Item Value Reference Range Interpretation Comments AMMONIA (BEAKER) 40 mol/L 18-72 Specimen sl ightly (test code = 348) hemolyzed [employer] President [employer] Development ID - JOHN CLACTIC ACID, [id number] 14:37:00 Test Item Value Reference Range Interpretation Comments LACTATE BLOOD VENOUS (2) (BEAKER) 2.61 mmol/L 0.50-2.20 H (test code = 2872) [employer] ID - JOHN CSpecimen slightly ictericPT/uRKT2619-77-28 14:36:00 Test Item Value Reference Interpretation Comments Range Protime (test code = 18.0 See_Comment H [Autom ated 5902-2) message] The system which generated this result transmitted reference range : 11.9 - 14.2 seconds. The reference range was not used to interpret this result as normal/abnormal . INR (test code = 1.53 See_Comment [Automated 2514-6) message] The system which generated this result transmitted reference range : <=5.90. The reference range was not used to interpret this result as normal/abnormal . PTT (test code = 32.1 See_Comment [Automated 13584-3) message] The system which generated this result transmitted reference range : 22.5 - 36.0 seconds. The reference range was not used to interpret this result as normal/abnormal . MICHAEL (test code = Effective 12/09/2018: MICHAEL) PT Reference Range ChangeNew: 11.9-14.2 Previous: 11.7-14.7 RECOMMENDED COUMADIN/WARFARIN INR THERAPY RANGESSTANDARD DOSE: 2.0-3.0 Includes: PROPHYLAXIS for venous thrombosis, systemic embolization; TREATMENT for venous thrombosis and/or pulmonary embolus.HIGH RISK: Target INR is 2.5-3.5 for patients wiht mechanical heart valves. Lab Interpretation Abnormal (test code = 71247-1) [facility] CenterPT/[id number] 14:36:00 Test Item Value Reference Range Interpretation [...] mechanical heart valves.CBC W/PLT COUNT & AUTO [id number] 14:33:00 Test Item Value Reference Range Interpretation [...] (BEAKER) (test code = 2801) Blood gas, [id number] 14:30:00 Test Item Value Reference Range Interpretation Comments pH, Rito (test code = 7.33 7.32-7.42 2746-6) pCO2, Rito (test code = 44 See_Comment [Aut omated 755) message] The sy stem which generated this result transmitted reference range : 41 - 51 mmHg. The reference range was not used to interpret this result as normal/abnormal . pO2, Rito (test code = 30 See_Comment [Auto mated 6765-2) message] The sy stem which generated this result transmitted reference range : 25 - 40 mmHg. The reference range was not used to interpret this result as normal/abnormal . O2 Sat, Rito (test code 52.3 % 40-70 = 2711-0) HCO3, Rito (test code = 23 mmol/L 21-29 43120-5) Base Excess, Rito (test -3.3 mmol/L -2-3 L code = 1927-3) Patient Temperature 37.0 C (test code = 8310-5) FIO2 (test code = 1819) 21 % Lab Interpretation Abnormal (test code = 88555-6) [facility] [id number] 14:30:00 Test Item Value Reference Range Interpretation Comments Calcium, Ion (test code = 1994-3) 1.05 mmol/L 1.12-1.27 L pH, Blood (test code = 22779-1) 7.33 Lab Interpretation (test code = Abnormal 96212-7) [facility], [id number] 14:30:00 Test Item Value Reference Range Interpretation Comments CALCIUM IONIZED (BEAKER) (test 1.05 mmol/L 1.12-1.27 L code = 698) PH, BLOOD (BEAKER) (test code = 7.33 1810) BLOOD GAS, [id number] 14:30:00 Test Item Value Reference Range Interpretation [...]
--- NOTE | 2020-09-05 21:01 | RAD REPORT ---
EXAM DESCRIPTION: RAD - Chest Single View - 09/05/2020 8:52 pm CLINICAL HISTORY: general weakness, abdominal pain COMPARISON: June 2020 TECHNIQUE: AP portable chest image was obtained 09/05/2020 8:52 pm . FINDINGS: Lungs are clear. Interstitial pattern matches comparison. Heart and vasculature are normal . No measurable pleural effusion and no pneumothorax. No acute bony abnormality seen. No acute aortic findings suspected. IMPRESSION: No acute cardiopulmonary process. No significant change from comparison study.
--- NOTE | 2020-09-05 21:04 | RAD REPORT ---
EXAM DESCRIPTION: CT - Head Brain Wo Cont - 09/05/2020 8:56 pm CLINICAL HISTORY: WEAKNESS COMPARISON: Head Brain Wo Cont dated 06/17/2020 TECHNIQUE: Axial 5 mm thick images of the head were obtained without IV contrast. All CT scans are performed using dose optimization technique as appropriate and may include automated exposure control or mA/KV adjustment according to patient size. FINDINGS: No intracranial hemorrhage, mass, edema or shift of mid-line structures. No cortical edema or sulcal effacement. No acute cortical based infarction identified. Patient has moderate severity a trophy similar to comparison. Ventricles are in proportion. There are chronic ischemic changes scatte red throughout the cerebral white matter and probably in the brainstem. This pattern is also stable. Arterial calcifications are present. Mastoid air cells and visualized portions of the paranasal sinuses are clear. No acute bony findings. IMPRESSION: No acute intracranial finding identifiable. Atrophy and chronic ischemic changes match the June 2020 study.
[2020-09-05 22:14] LABS: ALT/SGPT 16 U/L (12-78); AST/SGOT 29 U/L (15-37); Albumin 3.3 g/dL (3.4-5.0); Alkaline Phosphatase 58 U/L (45-117); BUN Blood Urea Nitrogen 14 mg/dL (7-18); Bicarbonate 21 mmol/L (21-32); Bilirubin Direct 0.3 mg/dL (0-0.2); Glucose Level 99 mg/dL (74-106); NT PRO-BNP 94 pg/mL (<125); Protein, Total 5.9 g/dL (6.4-8.2); Sodium Level 124 mmol/L (136-145); Troponin (Emerg Dept Use Only) < 0.02 ng/mL (0.0-0.045)
[2020-09-05 22:18] LABS: Magnesium 1.4 mg/dL (1.8-2.4); Potassium 2.7 mmol/L (3.5-5.1)
[2020-09-05 22:43] LABS: Absolute Lymphocytes (CBC) 1.2 K/uL (0.7-4.9); Basophils % 0.3 % (0-1.3); Hematocrit 37.7 % (36.0-45.0); Lymphocytes % 13.3 % (15.3-44.8); MPV 8.2 fL (7.6-11.3); Protime INR 1.08; RBC Red Blood Cell Count 3.45 M/uL (3.86-4.86)
[2020-09-05 22:57] LABS: SARS-COV-2 RT PCR NEGATIVE (NEGATIVE)
[2020-09-05] MEDS ORDERED: POTASSIUM 25 MEQ EFFERV TAB ONE (22:59)
[2020-09-05] MEDS ORDERED: THIAMINE 200 MG/2 ML INJ ONE (22:59)
[2020-09-05] MEDS ORDERED: MULTIVITAMINS 10 ML VIAL (INJ) IV ONE (23:00)
[2020-09-05] MEDS ORDERED: FOLIC ACID 5 MG/ML VIAL ONE (23:02)
[2020-09-05] MEDS ORDERED: KCL 20 MEQ/100 mL IVPB 20 MEQ/100 ML BAG IV ONE (23:03)
[2020-09-05] MEDS ORDERED: Magnesium Sulfate 2gm IVPB 2 G/50 ML BAG IV ONE (23:03)
[2020-09-05] MEDS ORDERED: NA CHLORIDE 0.9% 1,000 ML ONE (23:03)
[2020-09-05] MEDS ORDERED: ONDANSETRON 4 MG/2 ML VIAL ONE (23:15)
[2020-09-06 00:40] LABS: Blood Morphology Comment NOTED (NOT SEEN); Macrocytosis 1+; Platelet Estimate ADEQ; White Blood Cell Scan OK (OK)
[2020-09-06 01:50] LABS: BUN Blood Urea Nitrogen 13 mg/dL (7-18); Bicarbonate 21 mmol/L (21-32); Glucose Level 88 mg/dL (74-106); Potassium 3.4 mmol/L (3.5-5.1); Sodium Level 130 mmol/L (136-145)
--- NOTE | 2020-09-06 01:52 | EDPHYS ---
Physician Documentation [facility] Name: Ciara Faith Age: 70 yrs Sex: Female : 1950 Arrival Date: 09/05/2020 Time: 20:12 Bed 16 Private MD: ED Physician Fransisco Fuentes HPI: 09/05 20:39 This 70 yrs old Female presents to ER via EMS with complaints of General pm1 Weakness, Decreased Appetite. 20:39 The patient presents to the emergency department with weakness of the entire body, pm1 generalized weakness. Onset: The symptoms/episode began/occurred 1 week(s) ago. Associated signs and symptoms: Pertinent negatives: fever, headache, nausea, vomiting, diarrhea. Severity of symptoms: in the emergency department the symptoms are worse Pain is currently a 0 / 10. Patient's baseline: Neuro: alert and fully oriented, Motor: no deficits, Ambulation: walks without assistance, Speech: normal, The patient has a previous history of alcoholism. It is unknown whether or not the patient has recently seen a physician. Historical: - Allergies: 20:24 [place]; sf - Home Meds: 20:24 None [Active]; sf - PMHx: 20:24 Alcoholism; GERD; UTI; sf - Immunization history:: Adult Immunizations unknown. - Social history:: Smoking status: Patient denies any tobacco usage or history of. Patient uses alcohol, patient/guardian reports chronic longstanding heavy alcohol consumption. Patient/guardian denies using street drugs, IV drugs. ROS: 20:39 Constitutional: Negative for fever, chills, and weight loss. pm1 20:39 Cardiovascular: Negative for chest pain, palpitations, and edema, Respiratory: Negative pm1 for shortness of breath, cough, wheezing, and pleuritic chest pain, Abdomen/GI: Negative for abdominal pain, nausea, vomiting, diarrhea, and constipation, Back: Negative for injury and pain, MS/Extremity: Negative for injury and deformity, Skin: Negative for injury, rash, and discoloration. 20:39 Neuro: Positive for weakness, generalized. Exam: 20:39 Constitutional: This is a well developed, well nourished patient who is awake, alert, pm1 and in no acute distress. Head/Face: Normocephalic, atraumatic. Chest/axilla: Normal chest wall appearance and motion. Nontender with no deformity. No lesions are appreciated. 20:39 Skin: Warm, dry with normal turgor. Normal color with no rashes, no lesions, and no evidence of cellulitis. MS/ Extremity: Pulses equal, no cyanosis. Neurovascular intact. Full, normal range of motion. 20:39 Cardiovascular: Exam negative for acute changes, Rate: normal, Rhythm: regular, Pulses: no pulse deficits are appreciated. 20:39 Respiratory: Exam negative for acute changes, respiratory distress, shortness of breath. 20:39 Abdomen/GI: Exam negative for acute changes, Inspection: abdomen appears normal, Palpation: abdomen is soft and non-tender, in all quadrants. 20:39 Neuro: Exam negative for acute changes, Orientation: is normal, Mentation: is normal, Motor: is normal, moves all fours. Vital Signs: 20:22 BP 131 / 89; Pulse 108; Resp 16; Temp 98.2; Pulse Ox 100% ; Weight 56.7 kg; Height 5 sf ft. 4 in. (162.56 cm); Pain 0/10; 21:00 BP 115 / 72; Pulse 98; Resp 16; Pulse Ox 99% ; sf 22:00 BP 109 / 73; Pulse 95; Resp 16; Pulse Ox 100% ; sf 23:00 BP 122 / 90; Pulse 99; Resp 16; Pulse Ox 100% ; 09/06 00:00 BP 117 / 61; Pulse 95; Resp 16; Pulse Ox 100% ; sf 01:00 BP 126 / 61; Pulse 97; Resp 16; Pulse Ox 95% ; 09/05 20:22 Body Mass Index 21.46 (56.70 kg, 162.56 cm) MDM: 09/05 20:22 Patient medically screened. pm1 09/06 01:40 Data reviewed: vital signs. Data interpreted: Pulse oximetry: on room air is 100 %. pm1 Interpretation: normal. 01:50 Counseling: I had a detailed discussion with the patient and/or guardian regarding: the pm1 historical points, exam findings, and any diagnostic results supporting the discharge/admit diagnosis, lab results, the need for outpatient follow up, to return to the emergency department if symptoms worsen or persist or if there are any questions or concerns that arise at home. 09/05 20:26 Order name: Basic Metabolic Panel pm1 09/05 20:26 Order name: CBC with Diff; Complete Time: 00:50 pm1 09/05 20:26 Order name: LFT's; Complete Time: 22:22 pm09/05 20:26 Order name: Magnesium; Complete Time: 22:22 pm09/05 20:26 Order name: NT PRO-BNP; Complete Time: 22:22 pm1 09/05 20:26 Order name: PT-INR; Complete Time: 23:28 pm09/05 20:26 Order name: Troponin (emerg Dept Use Only); Complete Time: 22:22 pm09/05 20:26 Order name: ETOH Level; Complete Time: 23:28 pm09/05 20:27 Order name: Basic Metabolic Panel; Complete Time: 22:22 EDMS 09/05 20:27 Order name: Flu pm09/05 22:44 Order name: CBC Smear Scan; Complete Time: 00:50 EDMS 09/05 22:58 Order name: COVID-19/FLU A+B; Complete Time: 23:28 EDMS 09/05 20:26 Order name: XRAY Chest (1 view); Complete Time: 21:51 pm09/05 20:26 Order name: EKG; Complete Time: 20:28 pm09/05 20:26 Order name: Cardiac monitoring; Complete Time: 20:59 pm09/05 20:26 Order name: EKG - Nurse/Tech; Complete Time: 00:25 pm09/05 20:26 Order name: IV Saline Lock; Complete Time: 22:36 pm09/05 20:26 Order name: Labs collected and sent; Complete Time: 22:36 pm09/05 20:26 Order name: O2 Per Protocol; Complete Time: 20:59 pm1 09/05 20:26 Order name: O2 Sat Monitoring; Complete Time: 20:59 pm09/05 20:26 Order name: CT Head Brain wo Cont; Complete Time: 21:51 pm1 09/05 22:00 Order name: Labs - recollect needed: blue and purple top needed; Complete Time: 22:30 mw2 09/06 01:02 Order name: BMP; Complete Time: 01:53 pm1 Administered Medications: 09/05 23:00 Drug: Zofran (Ondansetron) 4 mg Route: IVP; Site: left forearm; 09/06 00:04 Follow up: Response: No adverse reaction 09/05 23:05 Drug: Banana Bag - (NS 0.9% 1000 ml, foLIC Acid 1 mg, Thiamine 100 mg, Multivitamin 1 sf amp) Route: IV; Rate: calculated rate; Site: left forearm; 09/06 01:05 Follow up: IV Status: Completed infusion; IV Intake: 1000ml sf 02:30 Follow up: Response: No adverse reaction 09/05 23:06 Drug: Magnesium Sulfate 2 grams Route: IVPB; Infused Over: 2 hrs; Site: left forearm; 23:36 Follow up: IV Status: Completed infusion; IV Intake: 50ml sf 23:08 Drug: Potassium Chloride 20 mEq Route: IV; Rate: calculated rate; Site: left forearm; 09/06 01:05 Follow up: IV Status: Completed infusion; IV Intake: 100ml sf 02:30 Follow up: Response: No adverse reaction 09/05 23:10 Drug: Potassium Effervescent Tablet 50 mEq Route: PO; 09/06 00:04 Follow up: Response: Other; Patient refusing to drink Disposition: 06:16 Co-signature as Attending Physician, Fransisco Fuentes MD I agree with the assessment and 4 plan of care. Disposition: 09/06/20 01:52 Discharged to Home. Impression: Weakness, Hyponatremia, Hypokalemia, Hypomagnesemia, Alcohol abuse. - Condition is Stable. - Discharge Instructions: Finding Treatment for Addiction, Potassium Content of Foods, Hypomagnesemia, Hyponatremia, Weakness, Alcohol Abuse and Nutrition, Hypokalemia. - Medication Reconciliation Form, Thank You Letter, Antibiotic Education, Prescription Opioid Use form. - Follow up: Emergency Department; When: As needed; Reason: Worsening of condition. Follow up: Private Physician; When: 2 - 3 days; Reason: Recheck today's complaints, Continuance of care, Re-evaluation by your physician. - Problem is new. - Symptoms have improved. Signatures: Dispatcher [employer] EDMS Sree Lerner, MANAGER APPLICATION MANAGER APPLICATION pm1 Fransisco Fuentes MD MD 4 Jorge A Knight 2 Sterling Pereira RN RN sf Corrections: (The following items were deleted from the chart) 09/05 22:09 20:28 Influenza Screen (A ordered. [facility] EDMS 22:10 20:29 CORONAVIRUS+MR.LAB.BRZ ordered. [facility] 09/06 02:46 01:52 09/06/2020 01:52 Discharged to Home. Impression: WeaknessHyponatremia; sf Hypokalemia; Hypomagnesemia; Alcohol abuse. Condition is Stable. Forms are Medication Reconciliation Form, Thank You Letter, Antibiotic Education, Prescription Opioid Use. Follow up: Emergency Department; When: As needed; Reason: Worsening of condition. Follow up: Private Physician; When: 2 - 3 days; Reason: Recheck today's complaints, Continuance of care, Re-evaluation by your physician. Problem is new. Symptoms have improved. pm1
--- NOTE | 2020-09-06 01:52 | ER ---
Nurse's Notes [facility] Name: Ciara Faith Age: 70 yrs Sex: Female : 1950 Arrival Date: 09/05/2020 Time: 20:12 Bed 16 Private MD: Diagnosis: Hyponatremia;Hypokalemia;Hypomagnesemia;Weakness;Alcohol abuse Presentation: 09/05 20:22 Chief complaint: EMS states: Hx UTI and ETOH abuse, weakness for the last week with sf decreased PO intake. Coronavirus screen: Client denies travel out of the [place] in the last 14 days. At this time, the client does not indicate any symptoms associated with coronavirus-19. Ebola Screen: Patient negative for fever greater than or equal to 101.5 degrees Fahrenheit, and additional compatible Ebola Virus Disease symptoms Patient denies exposure to infectious person. Patient denies travel to an Ebola-affected area in the 21 days before illness onset. No symptoms or risks identified at this time. Initial Sepsis Screen: Does the patient meet any 2 criteria? HR > 90 bpm. No. Patient's initial sepsis screen is negative. Does the patient have a suspected source of infection? No. Patient's initial sepsis screen is negative. Risk Assessment: Do you want to hurt yourself or someone else? Patient reports no desire to harm self or others. Onset of symptoms is unknown. 20:22 Method Of Arrival: EMS: [facility] sf 20:22 Acuity: LINA 3 sf Historical: - Allergies: 20:24 [place]; sf - Home Meds: 20:24 None [Active]; sf - PMHx: 20:24 Alcoholism; GERD; UTI; sf - Immunization history:: Adult Immunizations unknown. - Social history:: Smoking status: Patient denies any tobacco usage or history of. Patient uses alcohol, patient/guardian reports chronic longstanding heavy alcohol consumption. Patient/guardian denies using street drugs, IV drugs. Screenin:25 Abuse screen: Denies threats or abuse. Denies injuries from another. Nutritional sf screening: No deficits noted. Tuberculosis screening: No symptoms or risk factors identified. Never had TB. Possible symptoms: None Risk factors: None. Fall Risk None identified. No fall in past 12 months (0 pts). No secondary diagnosis (0 pts). IV access (20 points). Ambulatory Aid- None/Bed Rest/Nurse Assist (0 pts). Gait- Normal/Bed Rest/Wheelchair (0 pts) Mental Status- Oriented to own ability (0 pts). Total Gao Fall Scale indicates No Risk (0-24 pts). Assessment: 20:25 General: Appears in no apparent distress. comfortable, Behavior is calm, cooperative. sf Pain: Denies pain. Neuro: Level of Consciousness is awake, alert, obeys commands, Oriented to person, place. Cardiovascular: No deficits noted. Denies chest pain, lightheadedness, shortness of breath, syncope, Patient's skin is warm and dry. Rhythm is sinus rhythm. Respiratory: No deficits noted. Airway is patent Respiratory effort is even, unlabored, Respiratory pattern is regular, symmetrical. GI: Abdomen is non-distended, Reports intolerance of fluids, intolerance of food, nausea, Patient currently denies abdominal pain. : No signs and/or symptoms were reported regarding the genitourinary system. 22:18 Reassessment: Lab called to report Mg 1.4 and K+ 2.7. 09/06 00:05 Reassessment: Patient refusing to drink potassium. sf Vital Signs: 09/05 20:22 BP 131 / 89; Pulse 108; Resp 16; Temp 98.2; Pulse Ox 100% ; Weight 56.7 kg; Height 5 sf ft. 4 in. (162.56 cm); Pain 0/10; 21:00 BP 115 / 72; Pulse 98; Resp 16; Pulse Ox 99% ; sf 22:00 BP 109 / 73; Pulse 95; Resp 16; Pulse Ox 100% ; sf 23:00 BP 122 / 90; Pulse 99; Resp 16; Pulse Ox 100% ; 09/06 00:00 BP 117 / 61; Pulse 95; Resp 16; Pulse Ox 100% ; sf 01:00 BP 126 / 61; Pulse 97; Resp 16; Pulse Ox 95% ; 09/05 20:22 Body Mass Index 21.46 (56.70 kg, 162.56 cm) ED Course: 09/05 20:12 Patient arrived in ED. cf2 20:18 Sree Lerner NP is PHCP. pm1 20:18 Fransisco Fuentes MD is Attending Physician. pm1 20:22 Pereira, Sterling, RN is Primary Nurse. sf 20:24 Triage completed. sf 20:25 Patient has correct armband on for positive identification. Placed in gown. Bed in low sf position. Call light in reach. Side rails up X2. bus driver/monitor on. Pulse ox on. NIBP on. Door closed. Noise minimized. Visitors limited. Lights dimmed. Verbal reassurance given. 20:25 Arm band placed on left wrist. sf 20:52 XRAY Chest (1 view) In Process Unspecified. EDMS 20:56 CT Head Brain wo Cont In Process Unspecified. EDMS 21:40 Initial lab(s) drawn, by me, sent to lab. Missed attempt(s): 22 gauge in right hand. sf 22:15 Missed attempt(s): 24 gauge in left antecubital area. Bleeding controlled, band aid jp3 applied, catheter tip intact. 22:20 Lab(s) recollected, by me, sent to lab. Inserted saline lock: 24 gauge in left wrist, jp3 using aseptic technique. Blood collected. 22:36 Basic Metabolic Panel Sent. sf 02 00:01 EKG done. sf 01:10 Repeat lab(s) drawn. by me, sent to lab. sf 02:28 No provider procedures requiring assistance completed. IV discontinued, intact, sf bleeding controlled, No redness/swelling at site. Pressure dressing applied. Administered Medications: 09/05 23:00 Drug: Zofran (Ondansetron) 4 mg Route: IVP; Site: left forearm; sf 09/06 00:04 Follow up: Response: No adverse reaction sf 09/05 23:05 Drug: Banana Bag - (NS 0.9% 1000 ml, foLIC Acid 1 mg, Thiamine 100 mg, Multivitamin 1 sf amp) Route: IV; Rate: calculated rate; Site: left forearm; 09/06 01:05 Follow up: IV Status: Completed infusion; IV Intake: 1000ml sf 02:30 Follow up: Response: No adverse reaction sf 09/05 23:06 Drug: Magnesium Sulfate 2 grams Route: IVPB; Infused Over: 2 hrs; Site: left forearm; sf 23:36 Follow up: IV Status: Completed infusion; IV Intake: 50ml sf 23:08 Drug: Potassium Chloride 20 mEq Route: IV; Rate: calculated rate; Site: left forearm; sf 09/06 01:05 Follow up: IV Status: Completed infusion; IV Intake: 100ml sf 02:30 Follow up: Response: No adverse reaction sf 09/05 23:10 Drug: Potassium Effervescent Tablet 50 mEq Route: PO; sf 09/06 00:04 Follow up: Response: Other; Patient refusing to drink sf Intake: 09/05 23:36 IV: 50ml; Total: 50ml. sf 09/06 01:05 IV: 100ml; Total: 150ml. sf 01:05 IV: 1000ml; Total: 1150ml. sf Outcome: 01:52 Discharge ordered by . pm1 02:28 Discharged to home via wheelchair, with family. sf 02:28 Condition: improved 02:28 Discharge instructions given to patient, Instructed on discharge instructions, follow up and referral plans. safety practices, Demonstrated understanding of instructions, follow-up care, medications. 02:46 Patient left the ED. sf Signatures: Dispatcher [employer] EDMS Sree Lerner NP EMPLOYEE COMM[employer]ICATIONS INTERN pm1 Dell Bangura jp3 Oksana Palma 2 Sterling Pereira RN RN sf
[2020-09-06 05:44] VITALS: BP 131/89; TEMP 98.2; O2SAT 100
--- NOTE | 2020-09-07 05:39 | EKG ---
Test Date: 2020-09-06 Test Time: 00:01:30 Support Manager: MAY MEASUREMENT RESULTS: Intervals: Rate: 95 NE: 140 QRSD: 78 QT: 468 QTc: 588 [place]: P: 75 NE: 140 QRS: -27 T: 75 INTERPRETIVE STATEMENTS: Normal sinus rhythm Prolonged QT Abnormal ECG Compared to ECG 06/17/2020 16:02:54 Prolonged QT interval now present Myocardial infarct finding no longer present Electronically Signed On 09-07-20 05:35:50 SPECIAL DEPUTY SHERIFF by Prabhjot Delcid
== END 2020-09-06 02:46 | disposition home or self-care (01) ==
LOC: ER 20:11
DX: E87.1 Hypo-osmolality and hyponatremia (principal); E87.6 Hypokalemia; E83.42 Hypomagnesemia; R53.1 Weakness; Z20.822 Contact with and (suspected) exposure to COVID-19; F10.20 Alcohol dependence, uncomplicated; K21.9 Gastro-esophageal reflux disease without esophagitis; Y90.0 Blood alcohol level of less than 20 mg/100 ml
CPT/HCPCS: 96365; 96367; 93005; 85025; 80048 ×2; 36415; 80320; 83735; 85610; 80076; 84484; 83880; 0240U; 70450; 71045; 96375; 99285; J3411; J3480; J3475; J7030; J2405

== ENCOUNTER 2020-10-20 11:32 | Emergency (ER) | payer OTHER, MEDICARE ==
--- OUTSIDE RECORDS SUMMARY | 2020-10-20 11:37 | XMS REPORT | Continuity of Care Document ---
:1950 Author Organization [facility] t Address [address] [place] [address] Care Team Providers Name Role Phone Fer Esparza MD Attending Clinician [phone] Paola Ramírez MD Attending Clinician [phone] FER ESPARZA Attending Clinician Unavailable PAOLA RAMÍREZ Admitting Clinician Unavailable Payers Payer Name Policy Type Policy Effective Date Expiration Date Sour ce Number MEDICAREMEDICARE A [id number] 2015 ROSHAN Sweet [id number] 00:00:00 - Medical resentMedicare Center Problems Condition [...] Type Date Date Clinician Hydrocod Drug Active [facility] one-Acet Allergy 03-10 [facility] Imitrex Adverse Active Info Not [facility] Reaction Available [facility] ent [facility] [place] Adverse Active Info Not [facility] Reaction Available [facility] Social History Social Habit Start Date Stop Date Quantity Comments Source Sex Assigned At [facility] Medications Ordered Filled Start Stop Current Ordering Indication Dosage Frequency Signature Comments Components Source Medication Medication Date Date Medication? Clinician (SIG) Name Name Cefdinir Cefdinir 2019- Carin as [facility] 02-27 Maddison directed [facility] - 00:00: 00:00 Memoria 00 :00 [facility] Vital Signs Vital Name Observation Time Observation Value Comments Source Systolic blood 2020-03-14 12:22:00 138 mm[Hg] [facility] Diastolic blood 2020-03-14 12:22:00 63 mm[Hg] [facility] Heart rate 2020-03-14 12:22:00 77 /min [facility] Body temperature 2020-03-14 12:22:00 36.17 Stella [facility] Respiratory rate 2020-03-14 12:22:00 18 /min [facility] Oxygen saturation in 2020-03-14 12:22:00 99 /min [facility] - Arterial blood by Medical Ce nter Pulse oximetry Body weight 2020-03-10 14:00:00 59.9 kg [facility] Procedures Procedure Date / Time Performed Performing Clinician Dewayne e POCT-GLUCOSE METER 2020-03-14 12:24:00 [facility] POCT-GLUCOSE METER 2020-03-14 05:37:00 [facility] COMPREHENSIVE METABOLIC 2020-03-14 05:26:00 Madi Mcleod [facility] MAGNESIUM 2020-03-14 05:26:00 Madi Mcleod [facility] PHOSPHORUS 2020-03-14 05:26:00 Madi Mcleod [facility] CBC W/PLT COUNT & AUTO 2020-03-14 05:26:00 [facility] POCT-GLUCOSE METER 2020-03-13 23:47:00 [facility]SE [facility] 2020-03-13 14:07:00 Keyur [facility] POCT-GLUCOSE METER 2020-03-13 12:28:00 Gadnilserkassie [facility] COMPREHENSIVE METABOLIC 2020-03-13 07:33:00 Madi Mcleod [facility] MAGNESIUM 2020-03-13 07:33:00 Madi Mcleod [facility] PHOSPHORUS 2020-03-13 07:33:00 Madi Mcleod [facility] POCT-GLUCOSE METER 2020-03-13 07:24:00 Keyur [facility] POCT-GLUCOSE METER 2020-03-13 06:52:00 [facility] W/PLT COUNT & AUTO 2020-03-13 05:56:00 Madi Mcleod [facility] S t kes DIFFERENTIAL [facility] POCT-GLUCOSE METER 2020-03-12 16:01:00 [facility] POCT-[facility]SE METER 2020-03-12 12:56:00 [facility] POTASSIUM 2020-03-12 12:11:00 [facility] POCT-GLUCOSE METER 2020-03-12 08:41:[address] [facility] CBC W/PLT COUNT & AUTO 2020-03-12 03:12:00 Madi Mcleod [facility] S [facility] COMPREHENSIVE METABOLIC 2020-03-12 03:12:00 Madi Mcleod [facility] MAGNESIUM 2020-03-12 03:12:00 [facility]OS[facility] 2020-03-12 03:12:00 [facility], [facility] POCT-GLUCOSE METER 2020-03-11 19:41:00 [facility] POCT-GLUCOSE METER 2020-03-11 17:59:00 [facility] POCT-GLUCOSE METER 2020-03-11 12:18:00 [facility] POCT-GLUCOSE METER 2020-03-11 05:34:[address] [facility] CBC W/PLT COUNT & AUTO 2020-03-11 04:42:00 Shani, [facility] t [facility] - DIFFERENTIAL [facility] COMPREHENSIVE METABOLIC 2020-03-11 04:42:00 Shani, [facility] MAGNESIUM 2020-03-11 04:42:00 Shani, [facility] PHOSPHORUS 2020-03-11 04:42:00 [facility] RAPID DRUG SCREEN, URINE 2020-03-11 02:45:00 [facility] SODIUM, RANDOM URINE 2020-03-11 02:45:00 [facility] CREATININE, RANDOM URINE 2020-03-11 02:45:00 [facility] UREA NITROGEN, RANDOM 2020-03-11 02:45:00 [facility] URINE [facility] URINALYSIS W/ REFLEX 2020-03-11 02:44:00 [facility] URINE CULTURE [facility] OSMOLALITY, URINE 2020-03-11 02:44:00 [facility] POCT-GLUCOSE METER 2020-03-11 00:48:00 Odilia Rubin [facility] LACTIC ACID, VENOUS 2020-03-10 21:05:00 [facility] POCT-GLUCOSE METER 2020-03-10 17:59:00 Odilia Rubin [facility] BLOOD CULTURE 2020-03-10 14:42:00 Shani [facility] SARS-COV2/RT-PCR ([facility] & 2020-03-10 14:27:00 Shani [facility] - REF LABS) [facility] CALCIUM, IONIZED 2020-03-10 14:19:00 Shani [facility] CBC W/PLT COUNT & AUTO 2020-03-10 14:16:00 Madi Mcleod [facility] - DIFFERENTIAL [facility] BLOOD CULTURE 2020-03-10 14:16:00 [facility] COMPREHENSIVE METABOLIC 2020-03-10 14:16:00 [facility] MAGNESIUM 2020-03-10 14:16:00 Shani [facility] PHOSPHORUS 2020-03-10 14:16:00 Shani [facility] B-TYPE NATRIURETIC FACTOR 2020-03-10 14:16:00 Madi Mcleod [facility] - (BNP) [facility] LIPASE 2020-03-10 14:16:00 [facility] AMYLASE 2020-03-10 14:16:00 Shani [facility] TRIGLYCERIDES 2020-03-10 14:16:00 Shani [facility] PT/APTT 2020-03-10 14:16:00 Shani [facility] FIBRINOGEN 2020-03-10 14:16:00 Shani [facility] BLOOD GAS, VENOUS 2020-03-10 14:16:00 [facility] AMMONIA 2020-03-10 14:16:00 [facility] TROPONIN I 2020-03-10 14:16:00 [facility] HEPATITIS PANEL, ACUTE 2020-03-10 14:16:00 [facility] S t [facility] LACTIC ACID, VENOUS 2020-03-10 14:16:00 [facility] PROCALCITONIN 2020-03-10 14:16:00 [facility] OSMOLALITY, SERUM 2020-03-10 14:16:00 [facility] TSH/FREE T4 IF INDICATED 2020-03-10 14:16:00 [facility] CORTISOL 2020-03-10 14:16:00 [facility] T4, FREE 2020-03-10 14:16:00 [facility] Plan of Care Planned Activity Planned Date [...] 00:00:00 (1 of 1 - Medical Center [id number] PCV13) [code = PNEUMOCOCCAL 65+ YRS (1 of 1 - [id number] PCV13)] Future Scheduled [address] [facility] - Test 00:00:00 [facility]) [code = 729746234] Future Scheduled [address] [facility] - Test 00:00:00 malignant ne[facility] of [facility] colon (procedure) [code = 556282022] Encounters Start End Encounter Admission Attending Care Care Encounter Source Date/Time Date/Time Type Type Clinicians Facility Department ID 2020-09-21 2020-09-21 Outpatient [facility] [id number] [facility] 2020-09-19 2020-09-19 [facility] [id number] 2020-06-21 2020-06-21 [facility] [id number] [facility] 2020-06-06 2020-06-06 [facility] [id number] [facility] 2020-06-06 2020-06-06 [facility] [id number] [facility] 2020-02-28 2020-02-28 [facility] [id number] 09:52:00 09:52:00 t Specialty/U Yareli kes - Specialty rology Memori [facility] /Urology Clinic [facility] Clinic Outpati ent Clinics 2020-02-25 2020-02-25 [facility] [id number] 11:00:00 11:00:00 t Specialty/U Yareli kes - Specialty rology Memori [facility] /[facility]rology Clinic l Clinic Outpati ent Clinics 2019-12-29 2019-12-29 [facility] [id number] 10:02:00 10:02:00 t Specialty/U Yareli kes - Specialty rology Memori a [facility]rology Clinic l Clinic Outpati ent Clinics 2019-12-29 2019-12-29 [facility] [id number] 10:02:00 10:02:00 t Specialty/U Yareli kes - Specialty rology Memori a /Urology Clinic l Clinic Outpati ent Clinics 2019-12-13 2019-12-13 [facility] [id number] 11:00:00 11:00:00 t Specialty/U Yareli kes - Specialty rology Memori a /Urology Clinic l Clinic Outpati ent Clinics 2019-12-13 2019-12-13 [facility] [id number] 08:52:00 08:52:00 t Specialty/U Yareli kes - Specialty rology Memori a /Urology Clinic l Clinic Outpati ent Clinics 2019-10-14 2019-10-14 [facility] [id number] 11:03:00 11:03:00 t Specialty/U Yareli kes - Specialty rology Memori a /Urology Clinic l Clinic Outpati ent Clinics 2019-10-12 2019-10-12 [facility] [id number] 13:32:00 13:32:00 t Specialty/U Yareli kes - Specialty rology Memori a /Urology Clinic l Clinic Outpati ent Clinics 2019-08-30 2019-08-30 [facility] [id number] 11:46:00 11:46:00 [facility] Medicine Outpati ent Clinics 2019-08-22 2019-08-22 [facility] [id number] 12:35:00 12:35:00 [facility] Medicine Outpati ent Clinics 2019-08-18 2019-08-18 [facility] [id number] 10:45:00 10:45:00 [facility] Medicine Outpati ent Clinics 2019-06-21 2019-06-21 [facility] [id number] 10:00:00 10:00:00 t Specialty/U Yareli kes - Specialty rology Memori a /Urology Clinic l Clinic Outpati ent Clinics 2019-06-01 2019-06-01 [facility] [id number] 10:00:00 10:00:00 [facility] Medicine Outpati ent Clinics 2019-05-18 2019-05-18 [facility] [id number] 10[facility]40:00 10:40:00 [facility] Medicine Outpati ent Clinics 2019-04-19 2019-04-19 [facility] [id number] 23:36:00 23:36:00 [facility] Medicine Outpati ent Clinics 2019-04-03 2019-04-03 [facility] [id number] 04:57:00 04:57:00 [facility] Medicine Outpati ent Clinics 2019-03-17 2019-03-17 [facility] [id number] 21:43:00 21:43:00 [facility] Medicine Outpati ent Clinics 2019-03-17 2019-03-17 [facility] [id number] 10:40:00 10:40:00 [facility] Medicine Outpati ent Clinics 2019-03-08 2019-03-08 [facility] [id number] 15:04:00 15:04:00 t [facility] Medicine Medicine Outpati ent Clinics 2019-03-01 2019-03-01 [facility] [id number] 20[facility]32:00 20:32:00 [facility] Medicine Outpati ent Clinics 2019-02-26 2019-02-26 [facility] [id number] 16:08:00 16:08:00 [facility] Medicine Outpati ent Clinics 2019-02-22 2019-02-22 [facility] [id number] 08:19:00 08:19:00 [facility] Medicine Outpati ent Clinics 2019-02-15 2019-02-15 [facility] [id number] 09:20:00 09:20:00 [facility] Medicine Outpati ent Clinics 2019-01-18 2019-01-18 [facility] [id number] 10:00:00 10:00:00 t Specialty/U Yareli kes - Specialty rology Memori a /Urology Clinic l Clinic Outpati ent Clinics 2018-09-02 2018-09-02 [facility] [id number] 10:45:00 10:45:00 t [facility] Outpati ent Clinics 2018-07-21 2018-07-21 [facility] [id number] 09:30:00 09:30:00 t Specialty/U Yareli kes - Specialty rology Memori a /Urology Clinic l Clinic Outpati ent Clinics 2018-03-11 2018-03-11 [facility] [id number] 09:30:00 09:30:00 t Specialty/U Yareli kes - Specialty rology Memori a /Urology Clinic l Clinic Outpati ent Clinics 2018-02-19 2018-02-19 [facility] [id number] 09:00:00 09:00:00 t Specialty/U Yareli kes - Specialty rology Memori a /Urology Clinic l Clinic Outpati ent Clinics 2018-01-16 2018-01-16 [facility] [id number] 15:30:00 15:30:00 t Specialty/U Yareli kes - Specialty rology Memori a /Urology Clinic l Clinic Outpati ent Clinics 2017-12-25 2017-12-25 [facility] [id number] 10:38:00 10:38:00 t Specialty/U Yareli kes - Specialty rology Memori a /Urology Clinic l Clinic Outpati ent Clinics 2017-12-24 2017-12-24 [facility] [id number] 09:52:00 09:52:00 t Specialty/U Yareli kes - Specialty rology Memori a /Urology Clinic l Clinic Outpati ent Clinics 2017-12-11 2017-12-11 [facility] [id number] 09:30:00 09:30:00 t Specialty/U Yareli kes - Specialty rology Memori a /Urology Clinic l Clinic Outpati ent Clinics 2017-12-09 2017-12-09 [facility] [id number] 09:35:00 09:35:00 t Specialty/U Yareli kes - Specialty rology Memori a /Urology Clinic l Clinic Outpati ent Clinics 2017-11-20 2017-11-20 [facility] [id number] 09:00:00 09:00:00 t Specialty/U Yareli kes - Specialty rology Memori a /Urology Clinic l Clinic Outpati ent Clinics 2017-11-06 2017-11-06 [facility] [id number] 10:05:00 10:05:00 t Specialty/U Yareli kes - Specialty rology Memori a /Urology Clinic l Clinic Outpati ent Clinics 2017-11-06 2017-11-06 [facility] [id number] 09:12:00 09:12:00 t Specialty/U Yareli kes - Specialty rology Memori a /Urology Clinic l Clinic Outpati ent Clinics 2017-11-04 2017-11-04 [facility] [id number] 09:45:00 09:45:00 t Specialty/U Yareli kes - Specialty rology Memori a /Urology Clinic l Clinic Outpati ent Clinics 2017-10-20 2017-10-20 [facility] [id number] 08:45:00 08:45:00 t [facility] Outpati ent Clinics Results Test Description Test Time Test Comments Results Result Comments Source Blood Culture - Routine (Right Venipuncture) 2020-03-15 17:0 0:00 Test Item Value Reference Range Interpretation Comme nts Result (test code = 6463-4) No growth in 5 days [facility] [id number] 17:00:00 Test Item Value Reference Range Interpretation Comments CULTURE (BEAKER) (test No growth in 5 days code = 1095) BLOOD [id number] 15:00:00 Test Item Value Reference Range Interpretation Comments CULTURE (BEAKER) (test No growth in 5 days code = 1095) POC-Glucose [id number] 12:35:00 Test Item Value Reference Range Interpretation Comments POC-Glucose Meter (test 103 mg/dL 70-110 : TE STED AT [facility] code = 1538) [address] [place], [address]: Juvenile Court Judge/Techni benjamin ID = [id number] for EMILY SOLITARIO Lab Interpretation (test Normal code = 13184-1) [facility] [id number] 12:35:00 Test Item Value Reference Range Interpretation Comments POC-GLUCOSE METER 103 mg/dL 70-110 : TESTED A T [facility] 6720 (BEAKER) (test code = SHABBIR Jiménez [facility], 1538) [address]: Juvenile Court Judge/Techni benjamin ID = [id number] for EMILY EATON CBC with platelet count + automated [id number] 06:54:00 Test Item Value Reference Range Interpretation Comments WBC (test code = 6690-2) 3.5 See_Comment [A utomated message] The system [employer] generated this result transmitted ref erence range: 3.5 - 10 .5 K/L. The refe rence range was not u sed to interpret this result as normal/abnor mal. RBC (test code = 789-8) 2.79 See_Comment L [Au tomated message] The system [employer] generated this result transmitted ref erence range: 3.93 - 5 .22 M/L. The refe rence range was not u sed to interpret this result as normal/abnor mal. MCHC (test code = 786-4) 36.0 See_Comment H [A utomated message] The system [employer] generated this result transmitted ref erence range: [...] L [Aut omated message] 777-3) The system [employer] generated this result transmitted ref erence range: 150 - 45 0 K/CU MM. The referen ce range was not u sed to interpret this result as normal/abnor mal. MPV (test code = 10.5 fL 9.4-12.3 72188-2) nRBC (test code = 413) 0 See_Comment [Aut omated message] The system [employer] generated this result transmitted ref erence range: [...] See_Comment [Aut omated message] 670) The system [employer] generated this result transmitted ref erence range: 1.56 - 6 .13 K/L. The refe rence range was not u sed to interpret this result as normal/abnor mal. # Lymphs (test code = 0.43 See_Comment L [Auto mated message] 414) The system [employer] generated this result transmitted ref erence range: 1.18 - 3 .74 K/L. The refe rence range was not u sed to interpret this result as normal/abnor mal. # Monos (test code = 0.98 See_Comment H [Autom ated message] 415) The system [employer] generated this result transmitted ref erence range: 0.24 - 0 .36 K/L. The refe rence range was not u sed to interpret this result as normal/abnor mal. # Eos (test code = 416) 0.07 See_Comment [Au tomated message] The system [employer] generated this result transmitted ref erence range: 0.04 - 0 .36 K/L. The refe rence range was not u sed to interpret this result as normal/abnor mal. # Baso (test code = 417) 0.01 See_Comment [A utomated message] The system [employer] generated this result transmitted ref erence range: 0.01 - 0 .08 K/L. The refe rence range was not u sed to interpret this result as normal/abnor mal. Immature 1 % 0-1 Granulocytes-Relative (test code = 2801) Lab Interpretation (test Abnormal code = 92811-7) [facility] W/PLT COUNT & AUTO [id number] 06:54:00 Test Item Value Reference Range Interpretation [...] (BEAKER) (test code = 2801) Comprehensive metabolic [id number] 06:45:00 Test Item Value Reference Range Interpretation Comments Protein, Total (test 5.1 See_Comment L [Autom ated code = 2885-2) message] The system which generated this result transmit enrique reference range : 6.0 - 8.3 gm/dL . The reference range was not u sed to interpret th is result as normal/abnormal . Albumin (test code = 3.0 g/dL 3.5-5 L 49750-6) Alkaline Phosphatase 128 U/L 40-150 (test code [...] (test code = 7.6 mg/dL 8.4-10.2 L 66847-3) AST (test code = 75 U/L 5-34 H 1920-8) ALT (test code = 64 U/L 6-55 H 1742-6) EGFR (test code = 109 mL/min/1.73 [place] [address]-7) NOT ACCURATE CREATININE CLEARANCE IN PREDICTING GLOMERULAR FILTRATION RATE . ESTIMATED GFR I S NOT APPLICABLE FOR DIALYSIS PATIEN TS. MICHAEL (test code = MICHAEL) Juvenile Court Judge ID - EDASI Lab Interpretation Abnormal (test code = 31905-9) [facility] [id number] 06:45:00 Test Item Value Reference Range Interpretation [...] S NOT APPLICABLE FOR DIALYSIS PATIEN TS. Juvenile Court Judge ID - [id number] 06:34:00 Test Item Value Reference Range Interpretation Comments Magnesium (test code = 1.6 mg/dL 1.6-2.6 07647-4) MICHAEL (test code = MICHAEL) Juvenile Court Judge ID - EDASI Lab Interpretation (test Normal code = 41401-6) [facility] 06:34:00 Test Item Value Reference Range Interpretation Comments Phosphorus (test code = 2.3 mg/dL 2.3-4.7 2777-1) MICHAEL (test code = MICHAEL) Juvenile Court Judge ID - EDASI Lab Interpretation (test Normal code = 98924-8) [facility] 06:34:00 Test Item Value Reference Range Interpretation Comments PHOSPHORUS (BEAKER) (test code = 2.3 mg/dL 2.3-4.7 604) Juvenile Court Judge ID - [id number] 06:34:00 Test Item Value Reference Range Interpretation Comments MAGNESIUM (BEAKER) (test code = 1.6 mg/dL 1.6-2.6 627) Juvenile Court Judge ID - EDASIPOCT-GLUCOSE [id number] 05:48:00 Test Item Value Reference Range Interpretation Comments POC-GLUCOSE METER 86 mg/dL 70-110 : TESTED A T [facility] 6720 (BEAKER) (test code = [facility], 153) [address]: Juvenile Court Judge/Techni benjamin ID = [id number] for SAND ERS, KRAIG POCT-GLUCOSE [id number] 23:58:00 Test Item Value Reference Range Interpretation Comments POC-GLUCOSE METER 94 mg/dL 70-110 : TESTED A T [facility] 6720 (BEAKER) (test code = [facility], 153) [address]: Juvenile Court Judge/Techni benjamin ID = [id number] for SAND ERS, KRAIG POCT-GLUCOSE [id number] 14:18:00 Test Item Value Reference Range Interpretation Comments POC-GLUCOSE METER 93 mg/dL 70-110 : TESTED A T [facility] 6720 (BEAKER) (test code = [facility], 153) [address]: Juvenile Court Judge/Techni benjamin ID = [id number] for Kiko isKyley POCT-GLUCOSE [id number] 12:42:00 Test Item Value Reference Range Interpretation Comments POC-GLUCOSE METER 96 mg/dL 70-110 : TESTED A T [facility] 6720 (BEAKER) (test code = [facility], 153) [address]: Juvenile Court Judge/Techni benjamin ID = [id number] for Brianne estrada Paco [id number] 08:22:00 Test Item Value Reference Range Interpretation Comments PHOSPHORUS (BEAKER) (test code = 1.3 mg/dL 2.3-4.7 LL 604) Juvenile Court Judge ID - PIPAYAM LCOMPREHENSIVE METABOLIC [id number] 08:21:00 Test Item Value Reference Range Interpretation [...] S NOT APPLICABLE FOR DIALYSIS PATIEN TS. Juvenile Court Judge ID - PIAYA [id number] 08:16:00 Test Item Value Reference Range Interpretation Comments MAGNESIUM (BEAKER) (test code = 1.3 mg/dL 1.6-2.6 L 627) Juvenile Court Judge ID - PIAYA LCBC W/PLT COUNT & AUTO [id number] 07:59:00 Test Item Value Reference Range Interpretation [...] PERCENT (BEAKER) (test code = 2801) POCT-GLUCOSE [id number] 07:35:00 Test Item Value Reference Range Interpretation Comments POC-GLUCOSE METER 98 mg/dL 70-110 : TESTED A T [facility] 6720 (BEAKER) (test code = [facility], 153) [address]: Juvenile Court Judge/Techni benjamin ID = [id number] for Edson Gerardo POCT-GLUCOSE [id number] 07:03:00 Test Item Value Reference Range Interpretation Comments POC-GLUCOSE METER 103 mg/dL 70-110 : TESTED A T [facility] 6720 (BEAKER) (test code = [facility], 1538) [address]: Juvenile Court Judge/Techni benjamin ID = [id number] for Jaimee Mccoy POCT-GLUCOSE [id number] 16:13:00 Test Item Value Reference Range Interpretation Comments POC-GLUCOSE METER 110 mg/dL 70-110 : TESTED A T [facility] 6720 ([facility]) (test code = [facility], 1538) [address]: Juvenile Court Judge/Techni benjamin ID = [id number] for Yesika mckenzie, [place] POCT-GLUCOSE [id number] 13:14:00 Test Item Value Reference Range Interpretation Comments POC-GLUCOSE METER 127 mg/dL 70-110 H : TESTED A T [facility] 6720 (BEAKER) (test code = [facility], 153) [address]: Juvenile Court Judge/Techni benjamin ID = [id number] for Yesika mckenzie, [place] Znibrhcbp1292-39-04 12:48:00 Test Item Value Reference Range Interpretation Comments Potassium (test code = 3.1 meq/L 3.5-5.1 L Speci men 2823-3) slightly hemolyzed MICHAEL (test code = MICHAEL) Juvenile Court Judge ID - JOHN C Lab Interpretation Abnormal (test code = 55143-8) [facility] 12:48:00 Test Item Value Reference Range Interpretation Comments POTASSIUM (BEAKER) 3.1 meq/L 3.5-5.1 L Specimen slightly (test code = 379) hemolyzed Juvenile Court Judge ID - JOHN CPOCT-GLUCOSE [id number] 08:55:00 Test Item Value Reference Range Interpretation Comments POC-GLUCOSE METER 148 mg/dL 70-110 H : [facility] (BEAKER[facility] (test code = [facility] [place], 1538) [address]: Juvenile Court Judge/Techni benjamin ID = [id number] for [place] Ramirez COMPREHENSIVE METABOLIC [id number] 04:19:00 Test Item Value Reference Range Interpretation [...] S NOT APPLICABLE FOR DIALYSIS PATIEN TS. Juvenile Court Judge ID - RYAN LSpecimen slightly d[id number] 04:19:00 Test Item Value Reference Range Interpretation Comments PHOSPHORUS (BEAKER) (test code = 1.5 mg/dL 2.3-4.7 LL 604) Juvenile Court Judge ID - RYAN [id number] 04:16:00 Test Item Value Reference Range Interpretation Comments MAGNESIUM (BEAKER) (test code = 1.7 mg/dL 1.6-2.6 627) Juvenile Court Judge ID Reymundo DAVIS LCBC W/PLT COUNT & AUTO [id number] 03:32:00 Test Item Value Reference Range Interpretation [...] PERCENT (BEAKER) (test code = 2801) POCT-GLUCOSE [id number] 19:52:00 Test Item Value Reference Range Interpretation Comments POC-GLUCOSE METER 122 mg/dL 70-110 H : TESTED A T [facility] 6720 (BEAKER) (test code = [facility], 1538) [address]: Juvenile Court Judge/Techni benjamin ID = [id number] for Jaimee Mccoy POCT-GLUCOSE [id number] 18:10:00 Test Item Value Reference Range Interpretation Comments POC-GLUCOSE METER 115 mg/dL 70-110 H : TESTED A T [facility] 6720 (BEAKER) (test code = [employer] [place], 1538) [address]: Juvenile Court Judge/Techni benjamin ID = [id number] for BONI HDZ SARS-CoV2/RT-PCR (Asymptomatic ONLY)2020-03-11 14:46:00 Test Item Value Reference Range Interpretation Comments SARS-COV2/RT-PCR Negative Not Detected, (test code = Negative, See 54895-3) external report for linked test SARS-COV-2 [facility] PERFORMING LAB (test code = 76893-4) MICHAEL (test code = Negative result for [...] of the Act. Fact Sheet for Healthcare Providers:https://www.[employer]/sites/default/f riley/product/documents/F act_Sheet_HC_Providers_L tpu_VFKV-QcI-7.pdf Fact Sheet for Healthcare Patients:https://www.[employer]/sites/default/fi les/product/documents/Fa ct_Sheet_Patients_Lyra_S ARS-CoV-2.pdf Performing Laboratory:[place] [address] [address], [place] [address] [place], [place] [address]ARS-COV2/RT-PCR ([facility])2020-03-11 14:46:00 Test Item Value Reference Range Interpretation Comments SARS-COV2/RT-PCR (test Negative Not Detected, Negative, code = 5503432) See external report for linked test SARS-COV-2 PERFORMING LAB [facility] (test code = 4975085) Negative result for this test determines that [...] 564(g) of the Act.Fact Sheet for Healthcare Providers:https://www.ElephantDrive.[employer]/sites/default/files/product/documents/Fact_Shee v_GX_Jqsbehkli_Hjzl_VXND-TjJ-2.pdfFact Sheet for Healthcare Patients:https://www.[employer]/sites/default/files/product/ documents/Yyhz_Tcqyf_Axzkrmwn_Iocj_EQVM-EyK-0.pdfPerforming Laboratory:[facility], [place] [address]CVPZ-VFTXJJY METER 2020-03-11 12:29:00 Test Item Value Reference Range Interpretation Comments POC-GLUCOSE METER 117 mg/dL 70-110 H : TESTED A T [facility] 6720 (BEAKER) (test code = [facility], 1538) [address]: Juvenile Court Judge/Techni benjamin ID = [id number] for RA MOS, BONI [id number] 06:39:00 Test Item Value Reference Range Interpretation Comments MAGNESIUM (BEAKER) 1.8 mg/dL 1.6-2.6 Specimen slightly (test code = 627) hemolyzed Juvenile Court Judge ID - PIAYA [id number] 06:39:00 Test Item Value Reference Range Interpretation Comments PHOSPHORUS (BEAKER) 2.1 mg/dL 2.3-4.7 L Specimen slightly (test code = 604) hemolyzed Juvenile Court Judge ID - PIAYA LCOMPREHENSIVE METABOLIC [id number] 06:39:00 Test Item Value Reference Range Interpretation [...] S NOT APPLICABLE FOR DIALYSIS PATIEN TS. Juvenile Court Judge ID - PIAYA LSpecimen slightly ictericCBC W/PLT COUNT & AUTO [id number] 05:56:00 Test Item Value Reference Range Interpretation [...] PERCENT (BEAKER) (test code = 2801) POCT-GLUCOSE [id number] 05:51:00 Test Item Value Reference Range Interpretation Comments POC-GLUCOSE METER 114 mg/dL 70-110 H : [facility] (BEAKER) (test code = [facility] [place], 1538) [address]: Juvenile Court Judge/Techni benjamin ID = [id number] for TRAVON REYES Rapid drug screen, [id number] 04:12:00 Test Item Value Reference Range Interpretation Comments Barbiturate Screen Negative Negative (test code = 82210-8) Benzodiazepine Screen Negative Negative (test code = 55076-2) Cocaine (Metab.) Negative Negative Screen (test code = 3397-7) Methadone Screen (test Negative Negative code = 51391-7) Opiate Screen (test Negative Negative code = 31792-6) Cannabinoid Screen Negative Negative (test code = 07784-6) Amph/Methamph Screen Negative Negative (test code = 39167-4) Phencyclidine Screen Negative Negative (test code = 53430-3) pH, UA (test code = 6.0 5.0-8.0 5803-2) MICHAEL (test code = MICHAEL) DRUG CUTOFF CONC.Cocaine 300 ng/mL Cannabinoid 50 ng/mLBenzodiazepine 200 ng/mLBarbiturate 200 ng/mLPhencyclidine 25 ng/mLOpiate 300 ng/mLMethadone 300 ng/mLAmphetamine/ 1000 ng/mL Methamphetamine This assay provides an unconfirmed qualitative test result for the clinical management of patients in emergency situations. Chain of custody not maintained. Some kinn-jrn-tkxijek medications, as well as adulterants, may cause inaccurate results. Clinical correlation should be applied. A more comprehensive drug screen or confirmation of a detected drug may be performed upon request.Juvenile Court Judge ID - WIN Gee Lab Interpretation Normal (test code = 09029-7) [facility] HospitalRAPID DRUG SCREEN, [id number] 04:12:00 Test Item Value Reference Range Interpretation [...] situations. Chain of custody not maintained. Some evbc-nci-befbatn medications, as well as adulterants, may cause inaccurate results. Clinical correlation should be applied. A more comprehensivedrug screen or confirmation of a detected drug may be performed upon request.Juvenile Court Judge ID - WIN MUrinalysis w/Microscopic + Reflex to [id number] 04:06:00 Test Item Value Reference Range Interpretation Comments Color, UA (test code Yellow = 5778-6) Clarity, UA (test Clear code = 5767-9) Specific [place], UA 1.018 1.001-1.035 (test code = 5811-5) pH, UA (test code = 6.0 5.0-8.0 5803-2) Protein, UA (test Negative Negative code = 69444-9) Glucose, UA (test Negative Negative code = 365) Ketones, UA (test 10 mg/dL Negative A code = 2514-8) Bilirubin, UA (test Negative Negative code = 85067-3) Blood, UA (test code Negative Negative = 67058-4) Nitrite, UA (test Negative Negative code = 5802-4) Leukocytes, UA (test Negative Negative code = 5799-2) Urobilinogen, UA 0.2 mg/dL 0.2-1 (test code = 39440-7) RBC, UA (test code = 0 See_Comment [Autom ated 57977-7) message] The system which generated this result [...] 1 See_Comment [Automate d (test code = 77499-8) messag e] The system which generated this result transmit enrique reference range : /LPF. The reference range was not used to interpret this result as normal/abnormal . Amorphous Crystals Rare (test code = 27699-2) Specimen Source (test code = 2795) MICHAEL (test code = MICHAEL) Juvenile Court Judge ID - [auto]Juvenile Court Judge ID - tech Lab Interpretation Abnormal (test code = 64572-5) [facility]URIN[facility]IS W/ REFLEX URINE [id number] 04:06:00 Test Item Value Reference Range Interpretation [...] = 1584) SOURCE(BEAKER) (test code = 2795) Juvenile Court Judge ID - [auto]Juvenile Court Judge ID - techOsmolality, [id number] 04:02:00 Test Item Value Reference Range Interpretation Comments Osmolality, Ur (test code 630 See_Comment [ Automated message] = 2695-5) The system [employer] generated this result transmitted ref erence range: 50-1,200 mOsm/kg mOsm/kg . The reference range was not used to int erpret this result as normal/abnormal . Lab Interpretation (test Normal code = 94381-8) [facility] HospitalOSMOLALITY, [id number] 04:02:00 Test Item Value Reference Range Interpretation Comments OSMOLALITY URINE (BEAKER) (test 630 mOsm/kg 50-1,200 mOsm/kg code = 614) Creatinine, random [id number] 03:18:00 Test Item Value Reference Range Interpretation Comments Creatinine, Ur 47.2 mg/dL (test code = 2161-8) MICHAEL (test code = Reference Range: No MICHAEL) NormalsOperator ID - WIN [facility] Hospitalodium, random [id number] 03:18:00 Test Item Value Reference Range Interpretation Comments Sodium Urine (test 91 meq/L code = 2955-3) MICHAEL (test code = Reference Range: No MICHAEL) NormalsOperator ID - WIN [facility] Nitrogen, random [id number] 03:18:00 Test Item Value Reference Range Interpretation Comments Urea Nitrogen, Ur 798 mg/dL (test code = 3095-7) MICHAEL (test code = Reference Range: No MICHAEL) NormalsOperator ID - WIN Marlen [facility] HospitalCREATININE, RANDOM [id number] 03:18:00 Test Item Value Reference Range Interpretation Comments CREATININE URINE (BEAKER) (test 47.2 mg/dL code = 375) Reference Range: No NormalsOperator ID - WIN MSODIUM, RANDOM [id number] 03:18:00 Test Item Value Reference Range Interpretation Comments SODIUM URINE (BEAKER) (test code = 91 meq/L 243) Reference Range: No NormalsOperator ID - WIN MUREA NITROGEN, RANDOM URINE 2020-03-11 03:18:00 Test Item Value Reference Range Interpretation Comments UREA NITROGEN URINE (BEAKER) (test 798 mg/dL code = 538) Reference Range: No NormalsOperator ID - WIN MPOCT-GLUCOSE [id number] 01:01:00 Test Item Value Reference Range Interpretation Comments POC-GLUCOSE METER 114 mg/dL 70-110 H : TESTED A T [facility] 6720 (BEAKER) (test code = [facility], 1538) [address]: Juvenile Court Judge/Techni benjamin ID = [id number] for TRAVON REYES Lactic acid, [id number] 21:31:00 Test Item Value Reference Range Interpretation Comments Lactate, Venous (test 1.31 mmol/L 0.5-2.2 Specim en code = 2872) slightly hemolyzed MICHAEL (test code = MICHAEL) Juvenile Court Judge ID - DBSpecimen slightly icteric Lab Interpretation Normal (test code = 50507-9) [facility] HospitalLACTIC ACID, [id number] 21:31:00 Test Item Value Reference Range Interpretation Comments LACTATE BLOOD VENOUS 1.31 mmol/L 0.50-2.20 Specime n slightly (2) (BEAKER) (test hemolyzed code = 2872) Juvenile Court Judge ID - DBSpecimen slightly ictericPOCT-GLUCOSE [id number] 18:10:00 Test Item Value Reference Range Interpretation Comments POC-GLUCOSE METER 114 mg/dL 70-110 H : TESTED A T [facility] 6720 (BEAKER) (test code = [facility], 1538) [address]: Juvenile Court Judge/Techni benjamin ID = [id number] for SANTOS JACOBSON DD T4, [id number] 17:23:00 Test Item Value Reference Range Interpretation Comments Free T4 (test code = 3024-7) 1.00 ng/dL 0.7-1.48 MICHAEL (test code = MICHAEL) Juvenile Court Judge ID - DB Lab Interpretation (test Normal code = 99130-1) [facility] HospitalHepatitis panel, [id number] 17:23:00 Test Item Value Reference Range Interpretation Comments Hep A IgM (test code = Nonreactive Nonreactive 45635-8) Hep B C IgM (test code = Nonreactive Nonreactive 63757-2) Hepatitis C Ab (test code = Nonreactive Nonreactive 23099-8) HBsAg Screen (test code = Nonreactive Nonreactive 5195-3) MICHAEL (test code = MICHAEL) Juvenile Court Judge ID - DB Lab Interpretation (test Normal code = 01338-7) [facility] [place] [facility] HospitalT4, [id number] 17:23:00 Test Item Value Reference Range Interpretation Comments FREE T4 (BEAKER) (test code = 655) 1.00 ng/dL 0.70-1.[address] ID - DBHEPATITIS PANEL, [id number] 17:23:00 Test Item Value Reference Range Interpretation Comments HEPATITIS A IGM ANTIBODY (BEAKER) Nonreactive Nonreactive (test code = 498) HEPATITIS B CORE IGM ANTIBODY Nonreactive Nonreactive (BEAKER) (test code = 645) HEPATITIS C ANTIBODY (BEAKER) Nonreactive Nonreactive (test code = 367) HEPATITIS B SURFACE ANTIGEN (2) Nonreactive Nonreactive (BEAKER) (test code = 2585) Juvenile Court Judge ID - DBTSH/Free T4 If Wfbqupqws2407-11-45 15:51:00 Test Item Value Reference Range Interpretation Comments TSH (test code = 0.299 See_Comment L [Automated 75427-1) message] The system which generated this result transmit enrique reference range : 0.350 - 4.940 uIU/mL. The reference range was not used to interpret this result as normal/abnormal . MICHAEL (test code = MICHAEL) Juvenile Court Judge ID - ALIDA B Lab Interpretation Abnormal (test code = 53312-2) [facility] HospitalTSH/FREE T4 IF [id number] 15:51:00 Test Item Value Reference Range Interpretation Comments THYROID STIMULATING HORMONE 0.299 uIU/mL 0.350-4.940 L (BEAKER) (test code = 772) Juvenile Court Judge ID - ALIDA [id number] 15:33:00 Test Item Value Reference Range Interpretation Comments Cortisol, Total (test code 58.2 ug/dL 3.7-19.4 H = 2755) MICHAEL (test code = MICHAEL) Juvenile Court Judge ID - JOHN C Lab Interpretation (test Abnormal code = 50226-4) [facility] HospitalCORTISOL2020-08-28 15:33:00 Test Item Value Reference Range Interpretation Comments CORTISOL, TOTAL (BEAKER) (test 58.2 ug/dL 3.7-19.4 H code = 2755) Juvenile Court Judge ID - JOHN [id number] 15:07:00 Test Item Value Reference Range Interpretation Comments Procalcitonin (test code = 1.40 ng/mL <0.05 H 42185-2) MICHAEL (test code = MICHAEL) SEPSIS RISK (ng/mL)Low: 0.05-0.50Intermedi ate: 0.51-2.00High: >=2.01 Lab Interpretation (test Abnormal code = 48036-6) [facility] [place] [facility] HospitalPROCALCITONIN2020-08-28 15:07:00 Test Item Value Reference Range Interpretation Comments PROCALCITONIN (BEAKER) (test code 1.40 ng/mL <0.05 H = 3036) SEPSIS RISK (ng/mL)Low: 0.05-0.50Intermediate: 0.51-2.00High: >=2.01B-type Natriuretic Factor (BNP)2020-03-10 14:52:00 Test Item Value Reference Range Interpretation Comments BNP (test code = 02857-0) 154 pg/mL 0-100 H MICHAEL (test code = MICHAEL) Juvenile Court Judge ID - JOHN C Lab Interpretation (test Abnormal code = 37104-1) [facility] HospitalTroponin [id number] 14:52:00 Test Item Value Reference Range Interpretation Comments Troponin I (test code = 0.04 ng/mL 0-0.03 H 54305-7) MICHAEL (test code = MICHAEL) Troponin I [...] C Lab Interpretation (test Abnormal code = 96927-7) [facility] [place] [facility] HospitalB-TYPE NATRIURETIC FACTOR (BNP)2020-03-10 14:52:00 Test Item Value Reference Range Interpretation Comments B-TYPE NATRIURETIC PEPTIDE (BEAKER) 154 pg/mL 0-100 H (test code = 700) Juvenile Court Judge ID - JOHN CTROPONIN [id number] 14:52:00 Test Item Value Reference Range Interpretation [...] failure, acidosis, acute neurological disease, and persistent tachyarrhythmia.Juvenile Court Judge ID - JOHN COsmolality, serum 2020-03-10 14:47:00 Test Item Value Reference Range Interpretation Comments Osmolality Serum (test 287 See_Comment [Aut omated message] code = 2692-2) The system [employer] generated this result transmitted ref erence range: 275 - 29 5 mOsm/kg. The re ference range was not u sed to interpret this result as normal/abnor mal. Lab Interpretation (test Normal code = 90894-3) [facility] [place] [facility] HospitalOSMOLALITY, [id number] 14:47:00 Test Item Value Reference Range Interpretation Comments OSMOLALITY, SERUM (BEAKER) (test 287 mOsm/kg 275-295 code = 615) [id number] 14:46:00 Test Item Value Reference Range Interpretation Comments Amylase (test code = 397 U/L 25-125 H 1798-8) MICHAEL (test code = MICHAEL) Juvenile Court Judge ID - JOHN CSpecimen slightly icteric Lab Interpretation (test Abnormal code = 70395-7) [facility] [place] [facility] HospitalLipase2020-08-28 14:46:00 Test Item Value Reference Range Interpretation Comments Lipase (test code = 689 U/L 8-78 H 3040-3) MICHAEL (test code = MICHAEL) Juvenile Court Judge ID - JOHN CSpecimen slightly icteric Lab Interpretation (test Abnormal code = 61981-1) [facility] [place] [facility] HospitalTriglycerides2020-08-28 14:46:00 Test Item Value Reference Range Interpretation Comments Triglycerides (test 220 mg/dL code = 2571-8) MICHAEL (test code = MICHAEL) TRIGLYCERIDE REFERENCE RANGELow Risk <150Borderline Risk 150-199High Risk 200-499Very High Risk >=500Operator ID - JOHN CSpecimen slightly icteric [facility] Hospi[id number] 14:46:00 Test Item Value Reference Range Interpretation Comments PHOSPHORUS (BEAKER) (test code = 1.8 mg/dL 2.3-4.7 L 604) Juvenile Court Judge ID - JOHN [id number] 14:46:00 Test Item Value Reference Range Interpretation Comments TRIGLYCERIDES (BEAKER) (test code = 220 mg/dL 540) TRIGLYCERIDE REFERENCE RANGELow Risk <150Borderline Risk 150-199High Risk 200-499Very High Risk>=500Operator ID - JOHN CSpecimen slightly icteric COMPREHENSIVE METABOLIC [id number] 14:46:00 Test Item Value Reference Range Interpretation [...] S NOT APPLICABLE FOR DIALYSIS PATIEN TS. Juvenile Court Judge ID - JOHN CSpecimen slightly [id number] 14:46:00 Test Item Value Reference Range Interpretation Comments AMYLASE (BEAKER) (test code = 349) 397 U/L 25-[address] Judge ID - JOHN CSpecimen slightly [id number] 14:46:00 Test Item Value Reference Range Interpretation Comments LIPASE (BEAKER) (test code = 749) 689 U/L 8-[address] Judge ID - JOHN CSpecimen slightly [id number] 14:46:00 Test Item Value Reference Range Interpretation Comments MAGNESIUM (BEAKER) (test code = 1.3 mg/dL 1.6-2.6 L 627) Juvenile Court Judge ID - JOHN [id number] 14:41:00 Test Item Value Reference Range Interpretation Comments Fibrinogen (test code = 3255-7) 115 mg/dl 225-434 L Lab Interpretation (test code = Abnormal 13383-2) [facility] [place] [facility] HospitalFIBRINOGEN2020-08-28 14:41:00 Test Item Value Reference Range Interpretation Comments FIBRINOGEN LEVEL (BEAKER) (test 115 mg/dl 225-434 L code = 658) [id number] 14:38:00 Test Item Value Reference Range Interpretation Comments Ammonia (test code = 40 See_Comment Specime n slightly 97402-9) hemolyzed [Automated message] The system which generated this result transmit enrique reference range : 18 - 72 mol/L . The reference range was not u sed to interpret th is result as normal/abnormal . MICHAEL (test code = MICHAEL) Juvenile Court Judge ID - JOHN C Lab Interpretation Normal (test code = 33461-7) [facility] [place] [facility] HospitalAMMONIA2020-08-28 14:38:00 Test Item Value Reference Range Interpretation Comments AMMONIA (BEAKER) 40 mol/L 18-72 Specimen sl ightly (test code = 348) hemolyzed Juvenile Court Judge ID - JOHN CLACTIC ACID, [id number] 14:37:00 Test Item Value Reference Range Interpretation Comments LACTATE BLOOD VENOUS (2) (BEAKER) 2.61 mmol/L 0.50-2.20 H (test code = 2872) Juvenile Court Judge ID - JOHN Sharp slightly ictericPT/[id number] 14:36:00 Test Item Value Reference Interpretation Comments Range Protime (test code = 18.0 See_Comment H [Autom ated 5902-2) message] The system which generated this result transmitted reference range : 11.9 - 14.2 seconds. The reference range was not used to interpret this result as normal/abnormal . INR (test code = 1.53 See_Comment [Automated 0831-6) message] The system which generated this result transmitted reference range : <=5.90. The reference range was not used to interpret this result as normal/abnormal . PTT (test code = 32.1 See_Comment [Automated 93720-4) message] The system which generated this result [...] valves. Lab Interpretation Abnormal (test code = 63124-0) [facility] HospitalPT/[id number] 14:36:00 Test Item Value Reference Range Interpretation [...] mechanical heart valves.CBC W/PLT COUNT & AUTO [id number] 14:33:00 Test Item Value Reference Range Interpretation [...] (BEAKER) (test code = 2801) Blood gas, [id number] 14:30:00 Test Item Value Reference Range Interpretation [...] (test code = 30 See_Comment [Auto mated 1415-2) message] The sy stem which generated this result transmitted reference range : 25 - 40 mmHg. The reference range was not used to interpret this result as normal/abnormal . O2 Sat, Rito (test code 52.3 % 40-70 = 2711-0) HCO3, Rito (test code = 23 mmol/L 21-29 49278-9) Base Excess, Rito (test -3.3 mmol/L -2-3 L code = 1927-3) Patient Temperature 37.0 C (test code = 8310-5) FIO2 (test code = 1819) 21 % Lab Interpretation Abnormal (test code = 17278-9) [facility] [place] [facility] HospitalCalcium, [id number] 14:30:00 Test Item Value Reference Range Interpretation Comments Calcium, Ion (test code = 1994-3) 1.05 mmol/L 1.12-1.27 L pH, Blood (test code = 10793-6) 7.33 Lab Interpretation (test code = Abnormal 99106-2) [facility] [place] [facility] HospitalCALCIUM, [id number] 14:30:00 Test Item Value Reference Range Interpretation Comments CALCIUM IONIZED (BEAKER) (test 1.05 mmol/L 1.12-1.27 L code = 698) PH, BLOOD (BEAKER) (test code = 7.33 1810) BLOOD GAS, [id number] 14:30:00 Test Item Value Reference Range Interpretation [...]
[2020-10-20] MEDS ORDERED: NA CHLORIDE 0.9% 1,000 ML ONE (12:36)
[2020-10-20] MEDS ORDERED: THIAMINE 200 MG/2 ML INJ ONE (12:36)
[2020-10-20] MEDS ORDERED: FAMOTIDINE 20 MG/2 ML VIAL IV ONE (12:36)
[2020-10-20] MEDS ORDERED: CEFTRIAXONE/SWI 1gm 1 GM/10 ML SYR ONE (12:37)
--- NOTE | 2020-10-20 12:38 | RAD REPORT ---
EXAM DESCRIPTION: CT - Head Brain Wo Cont - 10/20/2020 12:29 pm CLINICAL HISTORY: DIZZINESS, weakness, syncope COMPARISON: Head Brain Wo Cont dated 09/05/2020 TECHNIQUE: Axial 5 mm thick images of the head were obtained without IV contrast. All CT scans are performed using dose optimization technique as appropriate and may include automated exposure control or mA/KV adjustment according to patient size. FINDINGS: No intracranial hemorrhage, mass, edema or shift of mid-line structures. No acute infarcti on changes seen. No cortical edema or sulcal effacement. Moderate severity atrophy changes are presen t. Ventricles are in proportion to volume loss. Chronic ischemic change seen throughout the cerebral white matter. Intracranial findings are similar to comparison. Mastoid air cells and visualized portions of the paranasal sinuses are clear. No acute bony findings. IMPRESSION: Negative non-contrast CT head examination for acute finding Atrophy and chronic ischemic change match the August comparison study.
--- NOTE | 2020-10-20 13:58 | RAD REPORT ---
EXAM DESCRIPTION: RAD - Chest Single View - 10/20/2020 1:50 pm CLINICAL HISTORY: COUGH Chest pain. COMPARISON: Chest Single View dated 09/05/2020; Chest Single View dated 06/17/2020; Chest Single View dated 05/29/2020; Chest Single View dated 03/10/2020 FINDINGS: Portable technique limits examination quality. The lungs are grossly clear. The heart is normal in size. No displaced fractures. IMPRESSION: No acute intrathoracic process suspected.
[2020-10-20] MEDS ORDERED: FOLIC ACID 1 MG, MULTIVITAMINS INJ 10 ML, THIAMINE HCL 100 MG in NA CHLORIDE 0.9% 1,000 ML IV ONE (14:00)
[2020-10-20] MEDS ORDERED: PANTOPRAZOLE 40 MG INJ ONE (14:30)
[2020-10-20 15:01] LABS: Absolute Lymphocytes (CBC) 0.4 K/uL (0.7-4.9); Basophils % 0.6 % (0-1.3); Hematocrit 27.9 % (36.0-45.0); Lymphocytes % 26.8 % (15.3-44.8); MPV 9.3 fL (7.6-11.3); RBC Red Blood Cell Count 2.35 M/uL (3.86-4.86)
[2020-10-20 15:07] LABS: Protime INR 1.57
[2020-10-20 15:19] LABS: ALT/SGPT 61 U/L (12-78); AST/SGOT 170 U/L (15-37); Albumin 2.8 g/dL (3.4-5.0); Alkaline Phosphatase 127 U/L (45-117); BUN Blood Urea Nitrogen 5 mg/dL (7-18); Bicarbonate 24 mmol/L (21-32); Bilirubin Direct 3.2 mg/dL (0-0.2); Bilirubin Total 4.3 mg/dL (0.2-1.0); Glucose Level 79 mg/dL (74-106); NT PRO-BNP 346 pg/mL (<125); Protein, Total 5.1 g/dL (6.4-8.2); Sodium Level 135 mmol/L (136-145); Troponin (Emerg Dept Use Only) < 0.02 ng/mL (0.0-0.045)
[2020-10-20 15:22] LABS: Magnesium 0.9 mg/dL (1.8-2.4); Potassium 2.8 mmol/L (3.5-5.1)
[2020-10-20 15:30] LABS: Platelet Estimate DECR; White Blood Cell Scan OK (OK)
[2020-10-20 15:31] LABS: Blood Morphology Comment NOTED (NOT SEEN); Macrocytosis 3+
[2020-10-20 15:44] LABS: Phosphorus 1.4 mg/dL (2.5-4.9)
[2020-10-20] MEDS ORDERED: VITAMIN K (ADULT) 10 MG/ML ONE (15:51)
[2020-10-20] MEDS ORDERED: KCL 20 MEQ/100 mL IVPB 20 MEQ/100 ML BAG IV ONE ×2 (15:51→18:10)
[2020-10-20] MEDS ORDERED: Magnesium Sulfate 2gm IVPB 2 G/50 ML BAG IV ONE (15:51)
--- NOTE | 2020-10-20 15:57 | ER ---
Nurse's Notes [facility] Name: Ciara Faith Age: 70 yrs Sex: Female : 1950 Arrival Date: 10/20/2020 Time: 11:34 Bed 16 Private MD: Diagnosis: Hypokalemia;Hypomagnesemia;Vomiting;Alcohol abuse;Alcoholic liver disease;Anemia, unspecified Presentation: 10/20 11:35 Chief complaint: Patient states: N/V with slight diarrhea for 1 week. + weakness and ll1 dizziness. Not eating well for 1 week. No known fever, no cough. Coronavirus screen: Client denies travel out of the [place] in the last 14 days. At this time, the client does not indicate any symptoms associated with coronavirus-19. Ebola Screen: Patient denies travel to an Ebola-affected area in the 21 days before illness onset. Initial Sepsis Screen: Does the patient meet any 2 criteria? HR > 90 bpm. No. Patient's initial sepsis screen is negative. Does the patient have a suspected source of infection? No. Patient's initial sepsis screen is negative. Risk Assessment: Do you want to hurt yourself or someone else? Patient reports no desire to harm self or others. Onset of symptoms was October 14, 2020. 11:35 Method Of Arrival: EMS: [facility] ll1 11:35 Acuity: LINA 3 ll1 11:38 Chief complaint: EMS states: VSS. ll1 Triage Assessment: 11:35 General: Appears ill, Behavior is calm, cooperative, appropriate for age. Pain: Denies ll1 pain. Neuro: Level of Consciousness is awake, alert, obeys commands, Oriented to person, place, time, situation, Appropriate for age Shop Router are weak bilaterally Full function Weakness Speech is normal, Facial symmetry appears normal, Reports dizziness, weakness. Cardiovascular: No deficits noted. Respiratory: No deficits noted. GI: Abdomen is flat, Bowel sounds present X 4 quads. Abd is soft and non tender X 4 quads. Reports diarrhea, nausea, vomiting. Historical: - Allergies: 11:35 [place]; ll1 - PMHx: 11:35 Alcoholism; GERD; UTI; ll1 - Immunization history:: Flu vaccine is not up to date. - Social history:: Smoking status: Patient denies any tobacco usage or history of. - Family history:: not pertinent. Screenin:20 Abuse screen: Denies threats or abuse. Nutritional screening: No deficits noted. ll1 Tuberculosis screening: No symptoms or risk factors identified. Fall Risk IV access (20 points). Gait- Weak (10 pts.). Mental Status- Overestimates/Forgets Limitations (15 pts.). Total [place] Fall Scale indicates High Risk Score (45 or more points). Fall prevention measures have been instituted. Side Rails Up X 2 Placed Close to Nursing Station Frequent Obs/Assessments Occuring Family Present and informed to notify staff if the need to leave the bedside As available patient and family educated on Fall Prevention Program and Strategies. Assessment: 12:30 Reassessment: No changes from previously documented assessment. Patient and/or family ll1 updated on plan of care and expected duration. Pain level reassessed. 13:30 Reassessment: No changes from previously documented assessment. Patient and/or family ll1 updated on plan of care and expected duration. Pain level reassessed. Patient is alert, oriented x 3, equal unlabored respirations, skin warm/dry/pink. 14:30 Reassessment: No changes from previously documented assessment. Patient and/or family ll1 updated on plan of care and expected duration. Pain level reassessed. 15:30 Reassessment: No changes from previously documented assessment. Patient and/or family ll1 updated on plan of care and expected duration. Pain level reassessed. 16:30 Reassessment: No changes from previously documented assessment. Patient and/or family ll1 updated on plan of care and expected duration. Pain level reassessed. 17:14 GI: Abdomen is flat, Bowel sounds present X 4 quads. Abd is soft and non tender X 4 ll1 quads. Reports diarrhea, intolerance of food, nausea, vomiting. Vital Signs: 11:35 BP 110 / 95; Pulse 120; Resp 17; Temp 98.3; Pulse Ox 99% ; Weight 54.43 kg; Height 5 ll1 ft. 4 in. (162.56 cm); Pain 0/10; 14:00 BP 117 / 68; Pulse 100; Resp 18; Pulse Ox 100% on R/A; ll1 15:30 BP 110 / 65; Pulse 98; Resp 18; Pulse Ox 100% ; ll1 17:15 BP 99 / 40; Pulse 96; Resp 18; Pulse Ox 100% on R/A; ll1 18:03 BP 111 / 76; Pulse 100; Resp 17; Temp 98.0; Pulse Ox 100% on R/A; ll1 11:35 Body Mass Index 20.60 (54.43 kg, 162.56 cm) ll1 ED Course: 11:30 hall monitor on. Pulse ox on. NIBP on. ll1 11:34 Patient arrived in ED. ll1 11:34 Arm band placed on Patient placed in an exam room, on a stretcher. ll1 11:37 Triage completed. ll1 11:38 Taco Garcia, ERICA is Primary Nurse. ll1 11:55 Ra Sanabria MD is Attending Physician. cabrera 12:29 CT Head Brain wo Cont In Process Unspecified. EDMS 12:35 Missed attempt(s): 22 gauge in left antecubital area. Bleeding controlled, band aid ll1 applied, catheter tip intact. 12:50 Inserted saline lock: 22 gauge in right wrist, using aseptic technique. Blood collected.ll1 13:50 XRAY Chest (1 view) In Process Unspecified. EDMS 15:40 Inserted R femoral 3-lumen. ll1 15:[address] Sanabria with Sisi Malone from the [facility] Transfer eb Center. 16:06 Sisi Malone from the [facility] Transfer called to decline the patient in transfer eb due to being at capacity. 16:[address] Sanabria with Lily from the [facility] Transfer [place].eb 16:21 connected the [employer] Application Developer strategy planning consultant for [facility] with Dr. Sanabria for patient eb transfer consultation. 16:29 connected the hospitalist strategy planning consultant for [facility] with Dr. Sanabria for patient eb transfer consultation. 17:32 administrative approval given by Lily Dumont Rn/ patient has been accepted to [facility] 9 Kendall Montemayor/ [facility] has accepted the patient in transfer. report to be called to [phone]. 20:20 Patient has correct armband on for positive identification. Bed in low position. Call ll1 light in reach. Side rails up X 1. 20:20 No provider procedures requiring assistance completed. Patient transferred, IV remains ll1 in place. Administered Medications: 13:06 Drug: Pepcid (famotidine) 20 mg Route: IVP; Site: right wrist; ll1 15:52 Follow up: Response: No adverse reaction; RASS: Alert and Calm (0) 1 13:06 Drug: NS 0.9% 1000 ml Route: IV; Rate: 1 bolus; Site: right wrist; ll1 15:53 Follow up: Response: No adverse reaction; IV Status: Completed infusion; IV Intake: ll1 1000ml 13:07 Drug: Thiamine 100 mg Route: IV; Rate: bolus; Site: right wrist; 1 15:54 Follow up: Response: No adverse reaction; RASS: Alert and Calm (0) 1 13:07 Drug: Rocephin - (cefTRIAXone) 1 grams Route: IVPB; Infused Over: 30 mins; Site: right ll1 wrist; 15:54 Follow up: Response: No adverse reaction; IV Status: Completed infusion; IV Intake: [id number] 14:18 Drug: ProTONIX 40 mg Route: IVP; Site: right wrist; 1 15:53 Follow up: Response: No adverse reaction; RASS: Alert and Calm (0) 1 15:51 Drug: Potassium Chloride 20 mEq Route: IV; Rate: per protocol; Site: Other; 1 18:04 Follow up: Response: No adverse reaction; IV Status: Completed infusion; IV Intake: ll1 100ml 15:52 Drug: Vitamin K1 10 mg Route: Sub-Q; Site: left lower abdomen; ll1 15:53 Follow up: Response: No adverse reaction 1 15:52 Drug: Magnesium Sulfate 2 grams Route: IVPB; Infused Over: 2 hrs; Site: Other; ll1 16:33 Follow up: Response: No adverse reaction; RASS: Alert and Calm (0); IV Status: ll1 Completed infusion; IV Intake: 100ml 15:55 Drug: Banana Bag - (NS 0.9% 1000 ml, foLIC Acid 1 mg, Thiamine 100 mg, Multivitamin 1 ll1 amp) Route: IV; Rate: 125 ml/hr; Site: Other; 17:49 Drug: NS 0.9% 500 ml Route: IV; Rate: bolus; Site: Other; 1 20:22 Follow up: Response: No adverse reaction; RASS: Alert and Calm (0); IV Status: ll1 Completed infusion; IV Intake: 500ml 18:04 Drug: Potassium Chloride 20 mEq Route: IV; Rate: bolus; Site: Other; [facility] 20:23 Follow up: Response: No adverse reaction; RASS: Alert and Calm (0); IV Status: ll1 Completed infusion; IV Intake: 100ml 20:34 Drug: Potassium Phosphate 15 mmol Route: IV; Rate: per protocol; Site: Other; [facility] Intake: 15:53 IV: 1000ml; Total: 1000ml. ll1 15:54 IV: 20ml; Total: 1020ml. ll1 16:33 IV: 100ml; Total: 1120ml. ll1 18:04 IV: 100ml; Total: 1220ml. ll1 20:22 IV: 500ml; Total: 1720ml. ll1 20:23 IV: 100ml; Total: 1820ml. 1 Outcome: 15:56 ER care complete, transfer ordered by . [facility] 20:[address] [facility], Transfer form completed. X-rays sent w/ patient. [facility] 20:21 Transferred by ground EMS Note: Report given to Naomi Garcia RN at [place] 20:21 Condition: stable 20:21 Instructed on the need for transfer. 21:40 Patient left the ED. 1 Signatures: Dispatcher [employer] Ra Vela MD MD cha Botello, Elizabeth eb Lewis, Lynsay, RN RN [facility]
--- NOTE | 2020-10-20 15:57 | EDPHYS ---
Physician Documentation [facility] Name: Ciara Faith Age: 70 yrs Sex: Female : 1950 Arrival Date: 10/20/2020 Time: 11:34 Bed 16 Private MD: SUDHAKAR Physician Ra Sanabria HPI: 10/20 12:13 This 70 yrs old Female presents to ER via EMS with complaints of cabrera Nausea/Vomiting, Weakness. 12:13 The patient presents to the emergency department with nausea, vomiting, that is cabrera intermittent. Onset: The symptoms/episode began/occurred 3 day(s) ago. Possible causes: unknown. The symptoms are aggravated by nothing. food , The symptoms are alleviated by nothing. Associated signs and symptoms: The patient has no apparent associated signs or symptoms. Severity of symptoms: At their worst the symptoms were mild in the emergency department the symptoms are unchanged. The patient has experienced similar episodes in the past. Historical: - Allergies: 11:35 [place]; ll1 - PMHx: 11:35 Alcoholism; GERD; UTI; ll1 - Immunization history:: Flu vaccine is not up to date. - Social history:: Smoking status: Patient denies any tobacco usage or history of. - Family history:: not pertinent. ROS: 12:13 Constitutional: Negative for fever, chills, and weight loss, Eyes: Negative for injury, cabrera pain, redness, and discharge, ENT: Negative for injury, pain, and discharge, Neck: Negative for injury, pain, and swelling, Cardiovascular: Negative for chest pain, palpitations, and edema, Respiratory: Negative for shortness of breath, cough, wheezing, and pleuritic chest pain, Back: Negative for injury and pain, MS/Extremity: Negative for injury and deformity, Skin: Negative for injury, rash, and discoloration, Neuro: Negative for headache, weakness, numbness, tingling, and seizure, Psych: Negative for depression, anxiety, suicide ideation, homicidal ideation, and hallucinations, Allergy/Immunology: Negative for hives, rash, and allergies, Endocrine: Negative for neck swelling, polydipsia, polyuria, polyphagia, and marked weight changes, Hematologic/Lymphatic: Negative for swollen nodes, abnormal bleeding, and unusual bruising. 12:13 Abdomen/GI: Positive for nausea and vomiting, anorexia. Exam: 12:13 Constitutional: This is a well developed, well nourished patient who is awake, alert, cabrera and in no acute distress. Head/Face: Normocephalic, atraumatic. Eyes: Pupils equal round and reactive to light, extra-ocular motions intact. Lids and lashes normal. Conjunctiva and sclera are non-icteric and not injected. Cornea within normal limits. Periorbital areas with no swelling, redness, or edema. ENT: Nares patent. No nasal discharge, no septal abnormalities noted. Tympanic membranes are normal and external auditory canals are clear. Oropharynx with no redness, swelling, or masses, exudates, or evidence of obstruction, uvula midline. Mucous membranes moist. Neck: Trachea midline, no thyromegaly or masses palpated, and no cervical lymphadenopathy. Supple, full range of motion without nuchal rigidity, or vertebral point tenderness. No Meningismus. Chest/axilla: Normal chest wall appearance and motion. Nontender with no deformity. No lesions are appreciated. Respiratory: Lungs have equal breath sounds bilaterally, clear to auscultation and percussion. No rales, rhonchi or wheezes noted. No increased work of breathing, no retractions or nasal flaring. Abdomen/GI: Soft, non-tender, with normal bowel sounds. No distension or tympany. No guarding or rebound. No evidence of tenderness throughout. Back: No spinal tenderness. No costovertebral tenderness. Full range of motion. Female : Normal external genitalia. Skin: Warm, dry with normal turgor. Normal color with no rashes, no lesions, and no evidence of cellulitis. MS/ Extremity: Pulses equal, no cyanosis. Neurovascular intact. Full, normal range of motion. Neuro: Awake and alert, GCS 15, oriented to person, place, time, and situation. Cranial nerves II-XII grossly intact. Motor strength 5/5 in all extremities. Sensory grossly intact. Cerebellar exam normal. Normal gait. Psych: Awake, alert, with orientation to person, place and time. Behavior, mood, and affect are within normal limits. 12:13 Cardiovascular: Rate: tachycardic, Rhythm: regular, Pulses: Pulses are 4+ in bilateral radial, brachial, femoral, popliteal, posterior tibial and and dorsalis pedis arteries.. Heart sounds: normal, normal S1and S2, no S3 or S4, no murmur, no rub, no gallop, Edema: is not appreciated, JVD: is not appreciated. 15:20 Abdomen/GI: Inspection: abdomen appears normal, Bowel sounds: normal, Palpation: [facility] abdomen is soft and non-tender, Rectal exam: rectal tone normal, Stool: guaiac negative, hemorrhoid(s), are not appreciated, mass, is not appreciated, swelling, is not appreciated, tenderness, is not appreciated, Liver: no appreciated palpable abnormalities, Hernia: not appreciated. 16:26 ECG was reviewed by the Attending Physician. [facility] Vital Signs: 11:35 BP 110 / 95; Pulse 120; Resp 17; Temp 98.3; Pulse Ox 99% ; Weight 54.43 kg; Height 5 ll1 ft. 4 in. (162.56 cm); Pain 0/10; 14:00 BP 117 / 68; Pulse 100; Resp 18; Pulse Ox 100% on R/A; ll1 15:30 BP 110 / 65; Pulse 98; Resp 18; Pulse Ox 100% ; ll1 17:15 BP 99 / 40; Pulse 96; Resp 18; Pulse Ox 100% on R/A; ll1 18:03 BP 111 / 76; Pulse 100; Resp 17; Temp 98.0; Pulse Ox 100% on R/A; ll1 11:35 Body Mass Index 20.60 (54.43 kg, 162.56 cm) ll1 Procedures: 15:22 Central Line: the site was prepped with Betadine, in sterile fashion, a triple lumen [facility] catheter was inserted, in 1 attempts. placement was verified, by blood return, the site was dressed with using sterile technique, the patient tolerated the procedure, well. MDM: 11:55 Patient medically screened. [facility] 12:16 Differential diagnosis: Nonspecific abd pain, gastritis. Data reviewed: vital signs, [facility] nurses notes. Data interpreted: panel monitor: rate is 120 beats/min, rhythm is regular, Pulse oximetry: on room air is 99 %. Test interpretation: by ED physician or midlevel provider: ECG, plain radiologic studies. Counseling: I had a detailed discussion with the patient and/or guardian regarding: the historical points, exam findings, and any diagnostic results supporting the discharge/admit diagnosis, lab results. 10/20 12:13 Order name: Basic Metabolic Panel [facility] 10/20 12:13 Order name: CBC with Diff [facility] 10/20 12:13 Order name: LFT's [facility] 10/20 12:13 Order name: Magnesium [facility] 10/20 12:13 Order name: NT PRO-BNP [facility] 10/20 12:13 Order name: PT-INR; Complete Time: 15:17 [facility] 10/20 12:13 Order name: Troponin (emerg Dept Use Only); Complete Time: 15:25 [facility] 10/20 12:13 Order name: Blood Culture Adult (2) [facility] 10/20 12:13 Order name: Lactate; Complete Time: 15:25 [facility] 10/20 12:13 Order name: AMMONIA; Complete Time: 15:17 [facility] 10/20 12:13 Order name: Basic Metabolic Panel; Complete Time: 15:25 EDMS 10/20 12:13 Order name: CBC with Automated Diff; Complete Time: 15:42 EDDE 10/20 12:14 Order name: Liver (Hepatic) Function; Complete Time: 15:25 EDDE 10/20 12:13 Order name: XRAY Chest (1 view); Complete Time: 15:17 [facility] 10/20 12:13 Order name: CT Head Brain wo Cont; Complete Time: 12:59 [facility] 10/20 12:14 Order name: Magnesium; Complete Time: 15:25 EDDE 10/20 12:14 Order name: NT PRO-BNP; Complete Time: 15:25 EDDE 10/20 12:17 Order name: Lipase [facility] 10/20 12:18 Order name: Lipase; Complete Time: 15:49 EDMS 10/20 14:00 Order name: Type And Screen; Complete Time: 15:49 ll1 10/20 15:25 Order name: Phosphorus [facility] 10/20 15:30 Order name: CBC Smear Scan; Complete Time: 15:42 EDDE 10/20 15:35 Order name: Phosphorus; Complete Time: 15:49 EDMS 10/20 16:32 Order name: Lactate [facility] 10/20 18:23 Order name: SARS-COV-2 RT PCR EDDE 10/20 12:13 Order name: EKG; Complete Time: 12:14 [facility] 10/20 12:13 Order name: Cardiac monitoring; Complete Time: 13:07 [facility] 10/20 12:13 Order name: EKG - Nurse/Tech; Complete Time: 13:07 [facility] 10/20 12:13 Order name: IV Saline Lock; Complete Time: 12:14 [facility] 10/20 12:13 Order name: Labs collected and sent; Complete Time: 12:14 [facility] 10/20 12:13 Order name: O2 Per Protocol; Complete Time: 12: [facility] 10/20 12:13 Order name: O2 Sat Monitoring; Complete Time: 12:14 [facility] 10/20 13:08 Order name: Labs - recollect needed: recollect all labs; Complete Time: 15:36 10/20 14:01 Order name: Central Line Kit; Complete Time: 15:36 [facility] EC:26 Rate is 90 beats/min. Rhythm is regular. QRS [place] is Normal. ID interval is normal. QRS cabrera interval is normal. QT interval is normal. No Q waves. T waves are Normal. T waves are Inverted in leads I, II, III, aVL, aVF, V1, V2, V3, V4, V5, V6. No ST changes noted. Clinical impression: NSR w/ Non-specific ST/T Changes, Suggests hypokalemia, and No evidence of ischemia. Interpreted by me. Reviewed by me. Administered Medications: 13:06 Drug: Pepcid (famotidine) 20 mg Route: IVP; Site: right wrist; 1 15:52 Follow up: Response: No adverse reaction; RASS: Alert and Calm (0) ll1 13:06 Drug: NS 0.9% 1000 ml Route: IV; Rate: 1 bolus; Site: right wrist; ll1 15:53 Follow up: Response: No adverse reaction; IV Status: Completed infusion; IV Intake: ll1 1000ml 13:07 Drug: Thiamine 100 mg Route: IV; Rate: bolus; Site: right wrist; ll1 15:54 Follow up: Response: No adverse reaction; RASS: Alert and Calm (0) 1 13:07 Drug: Rocephin - (cefTRIAXone) 1 grams Route: IVPB; Infused Over: 30 mins; Site: right ll1 wrist; 15:54 Follow up: Response: No adverse reaction; IV Status: Completed infusion; IV Intake: [id number] 14:18 Drug: ProTONIX 40 mg Route: IVP; Site: right wrist; 1 15:53 Follow up: Response: No adverse reaction; RASS: Alert and Calm (0) ll1 15:51 Drug: Potassium Chloride 20 mEq Route: IV; Rate: per protocol; Site: Other; ll1 18:04 Follow up: Response: No adverse reaction; IV Status: Completed infusion; IV Intake: ll1 100ml 15:52 Drug: Vitamin K1 10 mg Route: Sub-Q; Site: left lower abdomen; ll1 15:53 Follow up: Response: No adverse reaction ll1 15:52 Drug: Magnesium Sulfate 2 grams Route: IVPB; Infused Over: 2 hrs; Site: Other; 1 16:33 Follow up: Response: No adverse reaction; RASS: Alert and Calm (0); IV Status: ll1 Completed infusion; IV Intake: 100ml 15:55 Drug: Banana Bag - (NS 0.9% 1000 ml, foLIC Acid 1 mg, Thiamine 100 mg, Multivitamin 1 ll1 amp) Route: IV; Rate: 125 ml/hr; Site: Other; 17:49 Drug: NS 0.9% 500 ml Route: IV; Rate: bolus; Site: Other; 1 20:22 Follow up: Response: No adverse reaction; RASS: Alert and Calm (0); IV Status: ll1 Completed infusion; IV Intake: 500ml 18:04 Drug: Potassium Chloride 20 mEq Route: IV; Rate: bolus; Site: Other; 1 20:23 Follow up: Response: No adverse reaction; RASS: Alert and Calm (0); IV Status: ll1 Completed infusion; IV Intake: 100ml 20:34 Drug: Potassium Phosphate 15 mmol Route: IV; Rate: per protocol; Site: Other; [facility] Disposition: 10/20/20 15:56 Transfer ordered to [facility]. Diagnosis are Hypokalemia, Hypomagnesemia, Vomiting, Alcohol abuse, Alcoholic liver disease, Anemia, unspecified. - Reason for transfer: Higher level of care. - Accepting physician is liver team, [facility]. - Condition is Fair. - Problem is new. - Symptoms have improved. Signatures: Dispatcher [employer] EDMS Ra Sanabria MD MD cha Botello, Elizabeth eb Lewis, Lynsay, RN RN ll1 Corrections: (The following items were deleted from the chart) 15:36 15:25 Phosphorus ordered. EDDE EDMS 16:28 15:56 10/20/2020 15:56 Transfer ordered to Other Acute Care Facility. Diagnosis is cabrera Hypokalemia; Hypomagnesemia; Vomiting; Alcohol abuse; Alcoholic liver disease; Anemia, unspecified. Reason for transfer: Higher level of care. Accepting physician is liver team. Condition is Fair. Problem is new. Symptoms have improved. cabrera 21:40 16:28 10/20/2020 15:56 Transfer ordered to [facility]. Diagnosis is ll1 Hypokalemia; Hypomagnesemia; Vomiting; Alcohol abuse; Alcoholic liver disease; Anemia, unspecified. Reason for transfer: Higher level of care. Accepting physician is liver team, [facility]. Condition is Fair. Problem is new. Symptoms have improved. cabrera
[2020-10-20] MEDS ORDERED: POTASSIUM PHOS IN 0.9 % NACL 15 MMOL/250 ML BAG IV ONE (17:00)
[2020-10-20] MEDS ORDERED: NA CHLORIDE 0.9% 500 ML ONE (17:49)
--- NOTE | 2020-10-21 10:17 | EKG ---
Test Date: 2020-10-20 Test Time: 12:58:42 [employer] Logging Operator: ELODIA MEASUREMENT RESULTS: Intervals: Rate: 90 MO: QRSD: 76 QT: 394 QTc: 481 [place]: P: MO: QRS: -8 T: 227 INTERPRETIVE STATEMENTS: Accelerated Junctional rhythm Low voltage QRS Cannot rule out Anterior infarct, age undetermined T wave abnormality, consider inferolateral ischemia Abnormal ECG Compared to ECG 09/06/2020 00:01:30 Accelerated junctional rhythm now present Low QRS voltage now present Myocardial infarct finding now present T-wave abnormality now present Possible ischemia now present Sinus rhythm no longer present Prolonged QT interval no longer present Electronically Signed On 10-21-20 10:15:32 CDT by Prabhjot Delcid
== END 2020-10-20 21:40 | disposition short-term general hospital (02) ==
LOC: ER 11:32
PROC: 06HM33Z Insertion of Infusion Device into Right Femoral Vein, Percutaneous Approach (ICD-10-PCS; principal; 2020-10-20)
DX: K70.9 Alcoholic liver disease, unspecified (principal); E87.6 Hypokalemia; E83.42 Hypomagnesemia; D64.9 Anemia, unspecified; F10.20 Alcohol dependence, uncomplicated; Z20.822 Contact with and (suspected) exposure to COVID-19; Z88.5 Allergy status to narcotic agent
CPT/HCPCS: 36556; 93005; 87040 ×2; 85025; 80048; 36415; 82140; 86900; 83735; 86850; 84100; 85610; 86901; 80076; 83605 ×2; 84484; 83690; 83880; 70450; 71045; 96372; 99285; U0003; J3411 ×2; J3430; C9113; J3480 ×2; J3475; J0696; J7040; J7030 ×2

== ENCOUNTER 2020-11-21 11:55 | Emergency (ER) | payer OTHER, MEDICARE ==
--- OUTSIDE RECORDS SUMMARY | 2020-11-21 12:00 | XMS REPORT | Continuity of Care Document ---
:1950 Author Organization [facility] t Address [address] [place] [address] Care Team Providers Name Role Phone Miranda Attending Clinician Unavailable Fer Esparza MD Attending Clinician [phone] Paola Ramírez MD Attending Clinician [phone] FER ESPARZA Attending Clinician Unavailable PAOLA RAMÍREZ Admitting Clinician Unavailable Payers Payer Name Policy Type Policy Effective Date Expiration Date Sour ce Number MEDICAREMEDICARE A [id number] 2015 ROSHAN Sweet [id number] 2014-P 00:00:00 - Medical resentMedicare Center [facility] [id number] 2020 ROSHAN Lua SUPPLEMENT/INDIVIDUALA 00:00:00 - Medical [id number] /07/2020-PresentMedigap Problems Condition Condition Condition Status Onset Resolution Last Treating Co mments Source Name Details Category Date Date Treatment Clinician Date Acute Acute Disease Active [facility] injury injury 00:00: Medical 00 [place] Hyponatrem Hyponatrem Disease Active [facility] ia 03[facility]10 [facility] - 00:[facility] Medical 00 Center 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 Adverse Active Info Not [facility] Reaction Available [facility] Social History Social Habit Start Date Stop Date Quantity Comments Source Sex Assigned At [facility] Medications Ordered Filled Start Stop Current Ordering Indication Dosage Frequency Signature Comments Components Source Medication Medication Date Date Medication? Clinician (SIG) Name Name Cefdinir Cefdinir Carin as [facility] 02-27 [facility] directed [facility] - 00:00: 00:00 Memoria 00 :00 [facility] Vital Signs Vital Name Observation Time Observation Value Comments Source Systolic blood 2020-03-14 12:22:00 138 mm[Hg] [facility] Diastolic blood 2020-03-14 12:22:00 63 mm[Hg] [facility] Heart rate 2020-03-14 12:22:00 77 /min [facility] Body temperature 2020-03-14 12:22:00 36.17 Stella [facility] Respiratory rate 2020-03-14 12:22:00 18 /min [facility] Oxygen saturation in 2020-03-14 12:22:00 99 /min [facility] Arterial blood by Medical Ce nter Pulse oximetry Body weight 2020-03-10 14:00:00 59.9 kg [facility] Procedures Procedure Date / Time Performed Performing Clinician Dewayne rhodes POCT-GLUCOSE METER 2020-03-14 12:24:00 Sarai Ramírez [facility] POCT-GLUCOSE METER 2020-03-14 05:37:00 Sarai Ramírez [facility] CBC W/PLT COUNT & AUTO 2020-03-14 05:26:00 Madi Mcleod [facility] S t kes DIFFERENTIAL [facility] COMPREHENSIVE METABOLIC 2020-03-14 05:26:[address] [facility] MAGNESIUM 2020-03-14 05:26:00 Madi Mcleod [facility] PHOSPHORUS 2020-03-14 05:26:00 [facility] POCT-GLUCOSE METER 2020-03-13 23:47:00 [facility]UCOSE METER 2020-03-13 14:07:00 [facility] POCT-GLUCOSE METER 2020-03-13 12:28:00 [facility] COMPREHENSIVE METABOLIC 2020-03-13 07:33:00 [facility]NESIUM 2020-03-13 07:33:00 Madi Mcleod [facility] PHOSPHORUS 2020-03-13 07:33:00 [facility] POCT-GLUCOSE METER 2020-03-13 07:24:00 [facility] POCT-GLUCOSE METER 2020-03-13 06:52:00 [facility] CBC W/PLT COUNT & AUTO 2020-03-13 05:56:00 Madi Mcleod [facility] S t kes [facility] POCT-GLUCOSE METER 2020-03-12 16:01:00 [facility] POCT-GLUCOSE METER 2020-03-12 12:56:00 [facility] POTASSIUM 2020-03-12 12:11:00 [facility] POCT-GLUCOSE METER 2020-03-12 08:41:00 [facility] PHOSPHORUS 2020-03-12 03:12:00 Madi [facility]cleod [facility] CBC W/PLT COUNT & AUTO 2020-03-12 03:12:00 [facility] DI[facility] COMPREHENSIVE METABOLIC 2020-03-12 03:12:[address] [facility] MAGNESIUM 2020-03-12 03:12:00 Madi [facility]cleod [facility] POCT-GLUCOSE METER 2020-03-11 19:41:00 [facility] POCT-GLUCOSE METER 2020-03-11 17:59:00 [facility] POCT-GLUCOSE METER 2020-03-11 12:18:00 [facility] POCT-GLUCOSE METER 2020-03-11 05:34:00 Odilia Rubin [facility] CBC W/PLT COUNT & AUTO 2020-03-11 04:42:00 Madi Mcleod [facility] DIFFERENTIAL [facility] COMPREHENSIVE METABOLIC 2020-03-11 04:42:[address] [facility] MAGNESIUM 2020-03-11 04:42:00 Madi [facility]cleod [facility] PHOSPHORUS 2020-03-11 04:42:00 [facility] RAPID DRUG SCREEN, URINE 2020-03-11 02:45:00 [facility] SODIUM, RANDOM URINE 2020-03-11 02:45:00 [facility] CREATININE, RANDOM URINE 2020-03-11 02:45:00 [facility], [facility] UREA NITROGEN, RANDOM 2020-03-11 02:45:00 [facility], [facility] URINALYSIS W/ REFLEX 2020-03-11 02:44:00 Shani, [facility] URINE CULTURE [facility] OSMOLALITY, URINE 2020-03-11 02:44:[address] [facility] POCT-GLUCOSE METER 2020-03-11 00:48:00 Odilia Rubin [facility] LACTIC ACID, VENOUS 2020-03-10 21:05:00 [facility] PO[facility]SE METER 2020-03-10 17:59:00 Odilia Rubin [facility] BLOOD CULTURE 2020-03-10 14:42:00 Shani [facility] SARS-COV2/RT-PCR ([facility] & 2020-03-10 14:27:00 Shani [facility] - REF LABS) [facility] CALCIUM, IONIZED 2020-03-10 14:19:00 Shani [facility] CBC W/PLT COUNT & AUTO 2020-03-10 14:16:00 Madi Mcleod [facility] S t kes - DIFFERENTIAL [facility] BLOOD CULTURE 2020-03-10 14:16:00 Shani [facility] COMPREHENSIVE METABOLIC 2020-03-10 14:16:00 [facility] MAGNESIUM 2020-03-10 14:16:00 [facility] PHOSPHORUS 2020-03-10 14:16:00 Shani [facility] B-TYPE NATRIURETIC FACTOR 2020-03-10 14:16:00 Madi Mcleod I [facility] - (BNP) [facility] LIPASE 2020-03-10 14:16:00 Shani [facility] AMYLASE 2020-03-10 14:16:00 Shani [facility] TRIGLYCERIDES 2020-03-10 14:16:00 Shani [facility] PT/APTT 2020-03-10 14:16:00 Shani [facility] FIBRINOGEN 2020-03-10 14:16:00 [facility] BLOOD GAS, VENOUS 2020-03-10 14:16:00 [facility] AMMONIA 2020-03-10 14:16:00 [facility] TROPONIN I 2020-03-10 14:16:00 [facility] HEPATITIS PANEL, ACUTE 2020-03-10 14:16:00 [facility] S [facility] LACTIC ACID, VENOUS 2020-03-10 14:16:00 [facility] PROCALCITONIN 2020-03-10 14:16:00 [facility] OSMOLALITY, SERUM 2020-03-10 14:16:00 [facility] TSH/FREE T4 IF INDICATED 2020-03-10 14:16:00 [facility] CORTISOL 2020-03-10 14:16:00 [facility] T4, FREE 2020-03-10 14:16:00 [facility] Plan of Care Planned Activity Planned Date Details Comments Source Future Scheduled 2021-03-[address] [facility] - Test 00:00:00 (Season Ended) [code = [facility] Center INFLUENZA VACCINE (Season Ended)] Future Scheduled 2020-07-[address] [facility] - Test 00:00:00 (12+) [code = Medical Center DEPRESSION SCREENING (12+)] Future Scheduled 2016-01-[address] [facility] - Test 00:00:00 WELLNESS (YEAR 2 or Medical Center FIRST YEAR if no IPPE) [code = MEDICARE ANNUAL WELLNESS (YEAR 2 or FIRST YEAR if no IPPE)] Future Scheduled 2015 PNEUMOCOCCAL 65+ YRS [facility] - Test 00:00:00 (1 of 1 - Medical Center [id number] PCV13) [code = PNEUMOCOCCAL 65+ YRS (1 of 1 - [id number] PCV13)] Future Scheduled 2000-02-01 SHINGLES VACCINES ([address] [facility] - Test 00:00:00 of 2) [code = SHINGLES Medic al Center VACCINES (1 of 2)] Future Scheduled 1969 DTAP/TDAP/TD VACCINES [facility] Test 00:00:00 (1 - Tdap) [code = Medical C enter DTAP/TDAP/TD VACCINES (1 - Tdap)] Future Scheduled 1968-02-01 HEPATITIS C SCREENING [facility] Test 00:00:00 [code = HEPATITIS C Medical Center SCREENING] Future Scheduled [address] [facility] - Test 00:00:00 malignant neoplasm of Medica l Center breast (procedure) [code = 690411817] Future Scheduled [address] [facility] [facility] - Test 00:00:00 malignant neoplasm of Medica l Center colon (procedure) [code = 808744772] Encounters Start End Encounter Admission Attending Care Care Encounter Source Date/Time Date/Time Type Type Clinicians Facility Department ID 2020-11-01 2020-11-01 Outpatient [facility] [id number] [facility] 2020-10-30 2020-10-30 Outpatient [facility] [id number] [facility] 2020-10-25 2020-10-25 Outpatient [facility] [id number] [facility] 2020-09-21 2020-09-21 Outpatient [facility] [id number] [facility] 2020-09-19 2020-09-19 Outpatient [facility] [id number] [facility] 2020-06-21 2020-06-21 Outpatient [facility] [id number] [facility] 2020-06-06 2020-06-06 Outpatient [facility] [id number] [facility] 2020-06-06 2020-06-06 Outpatient [facility] [id number] [facility] 2020-02-28 2020-02-28 [facility] [id number] 09:52:00 09:52:00 t Specialty/U Yareli kes - Specialty rology Memori a /Urology Clinic l Clinic Outpati ent Clinics 2020-02-25 2020-02-25 [facility] [id number] 11:00:00 11:00:00 t Specialty/U Yareli kes - Specialty rology Memori a /Urology Clinic l Clinic Outpati ent Clinics 2019-12-29 2019-12-29 [facility] [id number] 10:02:00 10:02:00 t Specialty/U Yareli kes - Specialty rology Memori a /Urology Clinic l Clinic Outpati ent Clinics 2019-12-29 2019-12-29 [facility] [id number] 10:02:00 10:02:00 t Specialty/U Yareli kes - Specialty rology Memori a /Urology Clinic l Clinic Outpati ent Clinics 2019-12-13 2019-12-13 [facility] [id number] 11:00:00 11:00:00 t Specialty/U Yareli kes - Specialty rology Memori a /Urology Clinic l Clinic Outpati ent Clinics 2019-12-13 2019-12-13 [facility] [id number] 08:52:00 08:52:00 t Specialty/U Yareli kes - Specialty rology Memori a /Urology Clinic l Clinic Outpati ent Clinics 2019-10-14 2019-10-14 [facility] [id number] 11:03:00 11:03:00 t Specialty/U Yareli kes - Specialty rology Memori a /Urology Clinic l Clinic Outpati ent Clinics 2019-10-12 2019-10-12 [facility] [id number] 13:32:00 13:32:00 t Specialty/U Yareli kes - Specialty rology Memori a /Urology Clinic l Clinic Outpati ent Clinics 2019-08-30 2019-08-30 [facility] [id number] 11:46:00 11:46:[address] [facility] l Medicine Outpati ent Clinics 2019-08-22 2019-08-22 [facility] [id number] 12:35:00 12:35:[address] [facility] l Medicine Outpati ent Clinics 2019-08-18 2019-08-18 [facility] [id number] 10:45:00 10:45:00 t [facility] Medicine Outpati ent Clinics 2019-06-21 2019-06-21 [facility] [id number] 10:00:00 10:00:00 t Specialty/U Yareli kes - Specialty rology Memori a /Urology Clinic l Clinic Outpati ent Clinics 2019-06-01 2019-06-01 [facility] [id number] 10:00:00 10:00:00 t [facility] Medicine Outpati ent Clinics 2019-05-18 2019-05-18 [facility] [id number] 10[facility]40:00 10:40:00 t [facility] Medicine Outpati ent Clinics 2019-04-19 2019-04-19 [facility] [id number] 23:36:00 23:36:00 t [facility] Medicine Outpati ent Clinics 2019-04-03 2019-04-03 [facility] [id number] 04:57:00 04:57:00 t [facility] Medicine Outpati ent Clinics 2019-03-17 2019-03-17 [facility] [id number] 21:43:00 21:43:[address] [facility] l Medicine Outpati ent Clinics 2019-03-17 2019-03-17 [facility] [id number] 10:40:00 10:40:00 t [facility] Medicine Outpati ent Clinics 2019-03-08 2019-03-08 [facility] [id number] 15:04:00 15:04:00 t [facility] Medicine Outpati ent Clinics 2019-03-01 2019-03-01 [facility] [id number] 20:32:00 20:32:00 t [facility] Medicine Outpati ent Clinics 2019-02-26 2019-02-26 [facility] [id number] 16:08:00 16:08:00 t [facility] Medicine Outpati ent Clinics 2019-02-22 2019-02-22 [facility] [id number] 08:19:00 08:19:00 t [facility] Medicine Outpati ent Clinics 2019-02-15 2019-02-15 [facility] [id number] 09:20:00 09:20:00 t [facility] Medicine Outpati ent Clinics 2019-01-18 2019-01-18 [facility] [id number] [facility] 10:00:00 10:00:00 t Specialty/U Yareli kes - Specialty rology Memori a /Urology Clinic l Clinic Outpati ent Clinics 2018-09-02 2018-09-02 [facility] [id number] 10:45:00 10:45:00 t [facility] Medicine Outpati ent Clinics 2018-07-21 2018-07-21 [facility] [id number] 09:30:00 09:30:00 t Specialty/U Yareli kes - Specialty rology Memori a /Urology Clinic l Clinic Outpati ent Clinics 2018-03-11 2018-03-11 [facility] [id number] 09:30:00 09:30:00 t Specialty/U Yareli kes - Specialty rology Memori a /Urology Clinic l Clinic Outpati ent Clinics 2018-02-19 2018-02-19 [facility] [id number] 09:00:00 09:00:00 t Specialty/U Yareli kes - Specialty rology Memori a /Urology Clinic l Clinic Outpati ent Clinics 2018-01-16 2018-01-16 [facility] [id number] 15:30:00 15:30:00 t Specialty/U Yareli kes - Specialty rology Memori a /Urology Clinic l Clinic Outpati ent Clinics 2017-12-25 2017-12-25 [facility] [id number] 10:38:00 10:38:00 t Specialty/U Yareli kes - Specialty rology Memori a /Urology Clinic l Clinic Outpati ent Clinics 2017-12-24 2017-12-24 [facility] [id number] 09:52:00 09:52:00 t Specialty/U Yareli kes - Specialty rology Memori a /Urology Clinic l Clinic Outpati ent Clinics 2017-12-11 2017-12-11 [facility] [id number] 09:30:00 09:30:00 t Specialty/U Yareli kes - Specialty rology Memori a /Urology Clinic l Clinic Outpati ent Clinics 2017-12-09 2017-12-09 [facility] [id number] 09:35:00 09:35:00 t Specialty/U Yareli kes - Specialty rology Memori a /Urology Clinic l Clinic Outpati ent Clinics 2017-11-20 2017-11-20 [facility] [id number] 09:00:00 09:00:00 t Specialty/U Yareli kes - Specialty rology Memori a /Urology Clinic l Clinic Outpati ent Clinics 2017-11-06 2017-11-06 [facility] [id number] 10:05:00 10:05:00 t Specialty/U Yareli kes - Specialty rology Memori a /Urology Clinic l Clinic Outpati ent Clinics 2017-11-06 2017-11-06 [facility] [id number] 09:12:00 09:12:00 t Specialty/U Yareli kes - Specialty rology Memori a /Urology Clinic l Clinic Outpati ent Clinics 2017-11-04 2017-11-04 Outpatient Yanni Young [id number] 09:45:00 09:45:00 t Specialty/U Yareli kes - Specialty rology Memori a /Urology Clinic l Clinic Outpati ent Clinics 2017-10-20 2017-10-20 Outpatient Yanni Liaot [id number] 08:45:00 08:45:00 t [facility] [address] [place] s [facility] Results Test Description Test Time Test Comments Results Result Comments Source Blood Culture - Routine (Right Venipuncture) 2020-03-15 17:0 0:00 Test Item Value Reference Range Interpretation Comme nts Result (test code = 6463-4) No growth in 5 days [facility] [id number] 17:00:00 Test Item Value Reference Range Interpretation Comments CULTURE (BEAKER) (test No growth in 5 days code = 1095) BLOOD [id number] 15:00:00 Test Item Value Reference Range Interpretation Comments CULTURE (BEAKER) (test No growth in 5 days code = 1095) POC-Glucose [id number] 12:35:00 Test Item Value Reference Range Interpretation Comments POC-Glucose Meter (test 103 mg/dL 70-110 : TE STED AT [facility] code = 1538) [address] [facility], 770 30: [employer] Vehicle Racer/Techni benjamin ID = [id number] for EMILY SOLITARIO Lab Interpretation (test Normal code = 70090-7) [facility]SE [id number] 12:35:00 Test Item Value Reference Range Interpretation Comments POC-GLUCOSE METER 103 mg/dL 70-110 : TESTED A T [facility] 6720 (BEAKER) (test code = ZAIRAGWEN Jiménez [facility], 1538) [address]: [employer] Racer/Techni benjamin ID = [id number] for EMILY EATON CBC with platelet count + automated [id number] 06:54:00 Test Item Value Reference Range Interpretation Comments WBC (test code = 6690-2) 3.5 See_Comment [A utomated message] The system [employer] generated this result transmitted ref erence range: 3.5 - 10 .5 K/L. The refe rence range was not u sed to interpret this result as normal/abnor mal. RBC (test code = 789-8) 2.79 See_Comment L [Au tomated message] The system [employer] generated this result transmitted ref erence range: 3.93 - 5 .22 M/L. The refe rence range was not u sed to interpret this result as normal/abnor mal. MCHC (test code = 786-4) 36.0 See_Comment H [A utomated message] The system [employer] generated this result transmitted ref erence range: [...] L [Aut omated message] 777-3) The system [employer] generated this result transmitted ref erence range: 150 - 45 0 K/CU MM. The referen ce range was not u sed to interpret this result as normal/abnor mal. MPV (test code = 10.5 fL 9.4-12.3 48130-7) nRBC (test code = 413) 0 See_Comment [Aut omated message] The system [employer] generated this result transmitted ref erence range: [...] See_Comment [Aut omated message] 670) The system [employer] generated this result transmitted ref erence range: 1.56 - 6 .13 K/L. The refe rence range was not u sed to interpret this result as normal/abnor mal. # Lymphs (test code = 0.43 See_Comment L [Auto mated message] 414) The system [employer] generated this result transmitted ref erence range: 1.18 - 3 .74 K/L. The refe rence range was not u sed to interpret this result as normal/abnor mal. # Monos (test code = 0.98 See_Comment H [Autom ated message] 415) The system [employer] generated this result transmitted ref erence range: 0.24 - 0 .36 K/L. The refe rence range was not u sed to interpret this result as normal/abnor mal. # Eos (test code = 416) 0.07 See_Comment [Au tomated message] The system [employer] generated this result transmitted ref erence range: 0.04 - 0 .36 K/L. The refe rence range was not u sed to interpret this result as normal/abnor mal. # Baso (test code = 417) 0.01 See_Comment [A utomated message] The system [employer] generated this result transmitted ref erence range: 0.01 - 0 .08 K/L. The refe rence range was not u sed to interpret this result as normal/abnor mal. Immature 1 % 0-1 Granulocytes-Relative (test code = 2801) Lab Interpretation (test Abnormal code = 58555-6) [facility] W/PLT COUNT & AUTO [id number] 06:54:00 Test Item Value Reference Range Interpretation [...] (BEAKER) (test code = 2801) Comprehensive metabolic [id number] 06:45:00 Test Item Value Reference Range Interpretation Comments Protein, Total (test 5.1 See_Comment L [Autom ated code = 2885-2) message] The system which generated this result transmit enrique reference range : 6.0 - 8.3 gm/dL . The reference range was not u sed to interpret th is result as normal/abnormal . Albumin (test code = 3.0 g/dL 3.5-5 L 90829-2) Alkaline Phosphatase 128 U/L 40-150 (test code [...] (test code = 7.6 mg/dL 8.4-10.2 L 31339-8) AST (test code = 75 U/L 5-34 H 1920-8) ALT (test code = 64 U/L 6-55 H 1742-6) EGFR (test code = 109 mL/min/1.73 [place] [address]-5) NOT ACCURATE CREATININE CLEARANCE IN PREDICTING GLOMERULAR FILTRATION RATE . ESTIMATED GFR I S NOT APPLICABLE FOR DIALYSIS PATIEN TSTyrese MICHAEL (test code = MICHAEL) [employer] ID - EDASI Lab Interpretation Abnormal (test code = 45895-8) [facility] CenterCOMPREHENSIVE METABOLIC [id number] 06:45:00 Test Item Value Reference Range Interpretation [...] S NOT APPLICABLE FOR DIALYSIS PATIEN TS. [employer] Racer ID - [id number] 06:34:00 Test Item Value Reference Range Interpretation Comments Magnesium (test code = 1.6 mg/dL 1.6-2.6 29208-3) MICHAEL (test code = MICHAEL) [employer] Racer ID - EDASI Lab Interpretation (test Normal code = 74174-7) [facility] Center[facility]osph[facility]2020-09-01 06:34:00 Test Item Value Reference Range Interpretation Comments Phosphorus (test code = 2.3 mg/dL 2.3-4.7 2777-1) MICHAEL (test code = MICHAEL) [employer] Racer ID - EDASI Lab Interpretation (test Normal code = 05517-5) [facility] CenterPHOSPHORUS2020-09-01 06:34:00 Test Item Value Reference Range Interpretation Comments PHOSPHORUS (BEAKER) (test code = 2.3 mg/dL 2.3-4.7 604) [employer] Racer ID - [id number] 06:34:00 Test Item Value Reference Range Interpretation Comments MAGNESIUM (BEAKER) (test code = 1.6 mg/dL 1.6-2.6 627) [employer] Racer ID - EDASIPOCT-GLUCOSE [id number] 05:48:00 Test Item Value Reference Range Interpretation Comments POC-GLUCOSE METER 86 mg/dL 70-110 : TESTED A T [facility] 6720 (BEAKER) (test code = [facility], 1538) 14[address]: All Terrain Vehicle Racer/Techni benjamin ID = [id number] for SAND ERS, KRAIG POCT-GLUCOSE [id number] 23:58:00 Test Item Value Reference Range Interpretation Comments POC-GLUCOSE METER 94 mg/dL 70-110 : TESTED A T [facility] 6720 (BEAKER) (test code = [facility], 1538) 97304: All Terrain Vehicle Racer/Techni benjamin ID = [id number] for SAND ERS, KRAIG POCT-GLUCOSE [id number] 14:18:00 Test Item Value Reference Range Interpretation Comments POC-GLUCOSE METER 93 mg/dL 70-110 : TESTED A T [facility] 6720 (BEAKER) (test code = [facility], [facility]8) 67770: All Terrain Vehicle Racer/Techni benjamin ID = [id number] for Sylvia Owens POCT-GLUCOSE [id number] 12:42:00 Test Item Value Reference Range Interpretation Comments POC-GLUCOSE METER 96 mg/dL 70-110 : TESTED A T [facility] 6720 (BEAKER) (test code = [facility], 1538) 45780: All Terrain Vehicle Racer/Techni benjamin ID = [id number] for Paco Alcantara [id number] 08:22:00 Test Item Value Reference Range Interpretation Comments PHOSPHORUS (BEAKER) (test code = 1.3 mg/dL 2.3-4.7 LL 604) All Terrain Vehicle Racer ID - PIAYA LCOMPREHENSIVE METABOLIC [id number] 08:21:00 Test Item Value Reference Range Interpretation [...] S NOT APPLICABLE FOR DIALYSIS PATIEN TS. All Terrain Vehicle Racer ID - PIAYA [id number] 08:16:00 Test Item Value Reference Range Interpretation Comments MAGNESIUM (BEAKER) (test code = 1.3 mg/dL 1.6-2.6 L 627) All Terrain Vehicle Racer ID - PIPAYAM LCBC W/PLT COUNT & AUTO [id number] 07:59:00 Test Item Value Reference Range Interpretation [...] PERCENT (BEAKER) (test code = 2801) POCT-GLUCOSE [id number] 07:35:00 Test Item Value Reference Range Interpretation Comments POC-GLUCOSE METER 98 mg/dL 70-110 : TESTED A T [facility] 6720 (BEAKER) (test code = [facility], 1538) 17538: All Terrain Vehicle Racer/Techni benjamin ID = [id number] for Edson Gerardo POCT-GLUCOSE [id number] 07:03:00 Test Item Value Reference Range Interpretation Comments POC-GLUCOSE METER 103 mg/dL 70-110 : TESTED A T [facility] 6720 (BEAKER) (test code = [facility], 1538) 02708: All Terrain Vehicle Racer/Techni benjamin ID = [id number] for Jaimee Mccoy POCT-GLUCOSE [id number] 16:13:00 Test Item Value Reference Range Interpretation Comments POC-GLUCOSE METER 110 mg/dL 70-110 : TESTED A T [facility] 6720 (BEAKER) (test code = [facility], 1538) 92631: All Terrain Vehicle Racer/Techni benjamin ID = [id number] for Marietta Ramirez POCT-GLUCOSE [id number] 13:14:00 Test Item Value Reference Range Interpretation Comments POC-GLUCOSE METER 127 mg/dL 70-110 H : TESTED A T [facility] 6720 (BEAKER) (test code = [facility], 153) 13450: All Terrain Vehicle Racer/Techni benjamin ID = [id number] for Marietta Ramirez [id number] 12:48:00 Test Item Value Reference Range Interpretation Comments Potassium (test code = 3.1 meq/L 3.5-5.1 L Speci men 2823-3) slightly hemolyzed MICHAEL (test code = MICHAEL) All Terrain Vehicle Racer ID - JOHN C Lab Interpretation Abnormal (test code = 13501-5) [facility] CenterPOTASSIUM2020-08-30 12:48:00 Test Item Value Reference Range Interpretation Comments POTASSIUM (BEAKER) 3.1 meq/L 3.5-5.1 L Specimen slightly (test code = 379) hemolyzed All Terrain Vehicle Racer ID - JOHN CPOCT-GLUCOSE [id number] 08:55:00 Test Item Value Reference Range Interpretation Comments POC-GLUCOSE METER 148 mg/dL 70-110 H : TESTED A T [facility] 6720 (BEAKER) (test code = [facility], 1538) 56487: All Terrain Vehicle Racer/Techni benjamin ID = [id number] for Katharina Ramireza COMPREHENSIVE METABOLIC [id number] 04:19:00 Test Item Value Reference Range Interpretation [...] S NOT APPLICABLE FOR DIALYSIS PATIEN TS. All Terrain Vehicle Racer ID - RYAN LSpecimen slightly [id number] 04:19:00 Test Item Value Reference Range Interpretation Comments PHOSPHORUS (BEAKER) (test code = 1.5 mg/dL 2.3-4.7 LL 604) All Terrain Vehicle Racer ID - RYAN [id number] 04:16:00 Test Item Value Reference Range Interpretation Comments MAGNESIUM (BEAKER) (test code = 1.7 mg/dL 1.6-2.6 627) All Terrain Vehicle Racer ID - RYAN LCBC W/PLT COUNT & AUTO [id number] 03:32:00 Test Item Value Reference Range Interpretation [...] PERCENT (BEAKER) (test code = 2801) POCT-GLUCOSE [id number] 19:52:00 Test Item Value Reference Range Interpretation Comments POC-GLUCOSE METER 122 mg/dL 70-110 H : TESTED A T [facility] 6720 (BEAKER) (test code = [facility]IR Jim[facility] [place], 1538) 49791: All Terrain Vehicle Racer/Techni benjamin ID = [id number] for Jaimee Mccoy POCT-GLUCOSE [id number] 18:10:00 Test Item Value Reference Range Interpretation Comments POC-GLUCOSE METER 115 mg/dL 70-110 H : TESTED A T [facility] 6720 [facility] (test code = [facility]BIR Jim[facility], 1538) 19167: All Terrain Vehicle Racer/Techni benjamin ID = [id number] for BONI HDZ SARS-CoV2/RT-PCR (Asymptomatic ONLY)2020-03-11 14:46:00 Test Item Value Reference Range Interpretation Comments SARS-COV2/RT-PCR Negative Not Detected, (test code = Negative, See 03882-3) external report for linked test SARS-COV-2 [facility] GONZALO PERFORMING LAB (test code = 27997-8) MICHAEL (test code = Negative result for [...] of the Act. Fact Sheet for Healthcare Providers:https://www.[employer] [place]/sites/default/f riley/product/documents/F act_Sheet_HC_Providers_L nms_EVCO-BbQ-0.pdf Fact Sheet for Healthcare Patients:https://www.[employer]/sites/default/fi les/product/documents/Fa ct_Sheet_Patients_Lyra_S ARS-CoV-2.pdf Performing Laboratory:[facility] [place] [address] [facility])2020-03-11 14:46:00 Test Item Value Reference Range Interpretation Comments SARS-COV2/RT-PCR (test Negative Not Detected, Negative, code = 0794579) See external report for linked test SARS-COV-2 PERFORMING LAB [facility] GONZALO (test code = 2287932) Negative result for this test determines that [...] 564(g) of the Act.Fact Sheet for Healthcare Providers:https://www.[employer]/sites/default/files/product/documents/Fact_Shee f_MT_Pnsrritqj_Znsu_CIGI-XuO-6.pdfFact Sheet for Healthcare Patients:https://www.[employer]/sites/default/files/product/ documents/Wtsr_Anvcu_Gfkoskmq_Bdnx_AVRL-GpF-9.pdfPerforming Laboratory:[facility], [place] [address]QTGN-MQOCQPM METER 2020-03-11 12:29:00 Test Item Value Reference Range Interpretation Comments POC-GLUCOSE METER 117 mg/dL 70-110 H : TESTED A T [facility] 6720 (BEAKER) (test code = SHABBIR Jim[facility]nez [facility], 1538) 65334: All Terrain Vehicle Racer/Techni benjamin ID = [id number] for RA MOS, BONI [id number] 06:39:00 Test Item Value Reference Range Interpretation Comments MAGNESIUM (BEAKER) 1.8 mg/dL 1.6-2.6 Specimen slightly (test code = 627) hemolyzed All Terrain Vehicle Racer ID - PIAYA [id number] 06:39:00 Test Item Value Reference Range Interpretation Comments PHOSPHORUS (BEAKER) 2.1 mg/dL 2.3-4.7 L Specimen slightly (test code = 604) hemolyzed All Terrain Vehicle Racer ID - PIAYA LCOMPREHENSIVE METABOLIC [id number] 06:39:00 Test Item Value Reference Range Interpretation [...] S NOT APPLICABLE FOR DIALYSIS PATIEN TS. All Terrain Vehicle Racer ID - PIAYA LSpecimen slightly ictericCBC W/PLT COUNT & AUTO [id number] 05:56:00 Test Item Value Reference Range Interpretation [...] PERCENT (BEAKER) (test code = 2801) POCT-GLUCOSE [id number] 05:51:00 Test Item Value Reference Range Interpretation Comments POC-GLUCOSE METER 114 mg/dL 70-110 H : TESTED A T [facility] 6720 (BEAKER) (test code = SHABBIR LEMUS, 1538) 08111: All Terrain Vehicle Racer/Techni benjamin ID = [id number] for ELIZABETH REYESA Rapid drug screen, [id number] 04:12:00 Test Item Value Reference Range Interpretation Comments Barbiturate Screen Negative Negative (test code = 88388-4) Benzodiazepine Screen Negative Negative (test code = 92922-1) Cocaine (Metab.) Negative Negative Screen (test code = 3397-7) Methadone Screen (test Negative Negative code = 26355-4) Opiate Screen (test Negative Negative code = 49176-5) Cannabinoid Screen Negative Negative (test code = 95022-6) Amph/Methamph Screen Negative Negative (test code = 11018-1) Phencyclidine Screen Negative Negative (test code = 36306-4) pH, UA (test code = 6.0 5.0-8.0 5803-2) MICHAEL (test code = MICHAEL) DRUG CUTOFF CONC.Cocaine 300 ng/mL Cannabinoid 50 ng/mLBenzodiazepine 200 ng/mLBarbiturate 200 ng/mLPhencyclidine 25 ng/mLOpiate 300 ng/mLMethadone 300 ng/mLAmphetamine/ 1000 ng/mL Methamphetamine This assay provides an unconfirmed qualitative test result for the clinical management of patients in emergency situations. Chain of custody not maintained. Some vapv-wdk-xoahuiu medications, as well as adulterants, may cause inaccurate results. Clinical correlation should be applied. A more comprehensive drug screen or confirmation of a detected drug may be performed upon request.All Terrain Vehicle Racer ID - WIN M Lab Interpretation Normal (test code = 63294-0) [facility] CenterRAPID DRUG SCREEN, [id number] 04:12:00 Test Item Value Reference Range Interpretation [...] situations. Chain of custody not maintained. Some gyhg-vsa-iuljyjk medications, as well as adulterants, may cause inaccurate results. Clinical correlation should be applied. A more comprehensivedrug screen or confirmation of a detected drug may be performed upon request.All Terrain Vehicle Racer ID - WIN MUrinalysis w/Microscopic + Reflex to [id number] 04:06:00 Test Item Value Reference Range Interpretation Comments Color, UA (test code Yellow = 5778-6) Clarity, UA (test Clear code = 5767-9) Specific [place], UA 1.018 1.001-1.035 (test code = 5811-5) pH, UA (test code = 6.0 5.0-8.0 5803-2) Protein, UA (test Negative Negative code = 24584-4) Glucose, UA (test Negative Negative code = 365) Ketones, UA (test 10 mg/dL Negative A code = 2514-8) Bilirubin, UA (test Negative Negative code = 28049-4) Blood, UA (test code Negative Negative = 68753-6) Nitrite, UA (test Negative Negative code = 5802-4) Leukocytes, UA (test Negative Negative code = 5799-2) Urobilinogen, UA 0.2 mg/dL 0.2-1 (test code = 50846-7) RBC, UA (test code = 0 See_Comment [Autom ated 81176-1) message] The system which generated this result [...] 1 See_Comment [Automate d (test code = 48478-7) messag e] The system which generated this result transmit enrique reference range : /LPF. The reference range was not used to interpret this result as normal/abnormal . Amorphous Crystals Rare (test code = 32013-4) Specimen Source (test code = 2795) MICHAEL (test code = MICHAEL) All Terrain Vehicle Racer ID - [auto]All Terrain Vehicle Racer ID - tech Lab Interpretation Abnormal (test code = 37110-7) [facility] CenterURINALYSIS W/ REFLEX URINE [id number] 04:06:00 Test Item Value Reference Range Interpretation [...] = 1584) SOURCE(BEAKER) (test code = 2795) All Terrain Vehicle Racer ID - [auto]All Terrain Vehicle Racer ID - techOsmolality, [id number] 04:02:00 Test Item Value Reference Range Interpretation Comments Osmolality, Ur (test code 630 See_Comment [ Automated message] = 4159-5) The system [employer] generated this result transmitted ref erence range: 50-1,200 mOsm/kg mOsm/kg . The reference range was not used to int erpret this result as normal/abnormal . Lab Interpretation (test Normal code = 78554-8) [facility] CenterOSMOLALITY, [id number] 04:02:00 Test Item Value Reference Range Interpretation Comments OSMOLALITY URINE (BEAKER) (test 630 mOsm/kg 50-1,200 mOsm/kg code = 614) Creatinine, random [id number] 03:18:00 Test Item Value Reference Range Interpretation Comments Creatinine, Ur 47.2 mg/dL (test code = 2161-8) MICHAEL (test code = Reference Range: No MICHAEL) NormalsOperator ID - WIN [facility] Centerodium, random [id number] 03:18:00 Test Item Value Reference Range Interpretation Comments Sodium Urine (test 91 meq/L code = 2955-3) MICHAEL (test code = Reference Range: No MICHAEL) NormalsOperator ID - WIN [facility] Nitrogen, random [id number] 03:18:00 Test Item Value Reference Range Interpretation Comments Urea Nitrogen, Ur 798 mg/dL (test code = 3095-7) MICHAEL (test code = Reference Range: No MICHAEL) NormalsOperator ID - WIN [facility] HospitalCREATININE, RANDOM [id number] 03:18:00 Test Item Value Reference Range Interpretation Comments CREATININE URINE (BEAKER) (test 47.2 mg/dL code = 375) Reference Range: No NormalsOperator ID - WIN MSODIUM, RANDOM [id number] 03:18:00 Test Item Value Reference Range Interpretation Comments SODIUM URINE (BEAKER) (test code = 91 meq/L 243) Reference Range: No NormalsOperator ID - WIN MUREA NITROGEN, RANDOM URINE 2020-03-11 03:18:00 Test Item Value Reference Range Interpretation Comments UREA NITROGEN URINE (BEAKER) (test 798 mg/dL code = 538) Reference Range: No NormalsOperator ID - WIN MPOCT-GLUCOSE [id number] 01:01:00 Test Item Value Reference Range Interpretation Comments POC-GLUCOSE METER 114 mg/dL 70-110 H : TESTED A T [facility] 6720 (BEAKER) (test code = SHABBIR CHAN [place], 1538) 01816: All Terrain Vehicle Racer/Techni benjamin ID = [id number] for TRAVON REYES Lactic acid, [id number] 21:31:00 Test Item Value Reference Range Interpretation Comments Lactate, Venous (test 1.31 mmol/L 0.5-2.2 Specim en code = 2872) slightly hemolyzed MICHAEL (test code = MICHAEL) All Terrain Vehicle Racer ID - DBSpecimen slightly icteric Lab Interpretation Normal (test code = 66105-0) [facility] CenterLACTIC ACID, [id number] 21:31:00 Test Item Value Reference Range Interpretation Comments LACTATE BLOOD VENOUS 1.31 mmol/L 0.50-2.20 Specime n slightly (2) (BEAKER) (test hemolyzed code = 2872) All Terrain Vehicle Racer ID - DBSpecimen slightly ictericPOCT-GLUCOSE [id number] 18:10:00 Test Item Value Reference Range Interpretation Comments POC-GLUCOSE METER 114 mg/dL 70-110 H : TESTED A T [facility] 6720 (AILYN) (test code = SHABBIR CHAN [place], 1538) 20869: All Terrain Vehicle Racer/Techni benjamin ID = [id number] for KAVON DDSANTOS T4, [id number] 17:23:00 Test Item Value Reference Range Interpretation Comments Free T4 (test code = 3024-7) 1.00 ng/dL 0.7-1.48 MICHAEL (test code = MICHAEL) All Terrain Vehicle Racer ID - DB Lab Interpretation (test Normal code = 27632-9) [facility] CenterHepatitis panel, [id number] 17:23:00 Test Item Value Reference Range Interpretation Comments Hep A IgM (test code = Nonreactive Nonreactive 53089-1) Hep B C IgM (test code = Nonreactive Nonreactive 95627-9) Hepatitis C Ab (test code = Nonreactive Nonreactive 01852-5) HBsAg Screen (test code = Nonreactive Nonreactive 5195-3) MCIHAEL (test code = MICHAEL) All Terrain Vehicle Racer ID - DB Lab Interpretation (test Normal code = 15292-1) [facility] CenterT4, [id number] 17:23:00 Test Item Value Reference Range Interpretation Comments FREE T4 (JAZMINAKER) (test code = 655) 1.00 ng/dL 0.70-1.48 All Terrain Vehicle Racer ID - DBHEPATITIS PANEL, [id number] 17:23:00 Test Item Value Reference Range Interpretation Comments HEPATITIS A IGM ANTIBODY (AKER) Nonreactive Nonreactive (test code = 498) HEPATITIS B CORE IGM ANTIBODY Nonreactive Nonreactive (BEAKER) (test code = 645) HEPATITIS C ANTIBODY (BEAKER) Nonreactive Nonreactive (test code = 367) HEPATITIS B SURFACE ANTIGEN (2) Nonreactive Nonreactive (BEAKER) (test code = 2585) All Terrain Vehicle Racer ID - DBTSH/Free T4 If Xnqgfmzsf2761-61-95 15:51:00 Test Item Value Reference Range Interpretation Comments TSH (test code = 0.299 See_Comment L [Automated 35057-9) message] The system which generated this result transmit enrique reference range : 0.350 - 4.940 uIU/mL. The reference range was not used to interpret this result as normal/abnormal . MICHAEL (test code = MICHAEL) All Terrain Vehicle Racer ID - ALIDA B Lab Interpretation Abnormal (test code = 25552-7) [facility] CenterTSH/FREE T4 IF [id number] 15:51:00 Test Item Value Reference Range Interpretation Comments THYROID STIMULATING HORMONE 0.299 uIU/mL 0.350-4.940 L (BEAKER) (test code = 772) All Terrain Vehicle Racer ID - ALIDA IOlsdkwmt1461-13-92 15:33:00 Test Item Value Reference Range Interpretation Comments Cortisol, Total (test code 58.2 ug/dL 3.7-19.4 H = 2755) MICHAEL (test code = MICHAEL) All Terrain Vehicle Racer ID - JOHN C Lab Interpretation (test Abnormal code = 83863-8) [facility] CenterCORTISOL2020-08-28 15:33:00 Test Item Value Reference Range Interpretation Comments CORTISOL, TOTAL (BEAKER) (test 58.2 ug/dL 3.7-19.4 H code = 2755) All Terrain Vehicle Racer ID - JOHN KOeexiohrcfrly9909-98-32 15:07:00 Test Item Value Reference Range Interpretation Comments Procalcitonin (test code = 1.40 ng/mL <0.05 H 92066-0) MICHAEL (test code = MICHAEL) SEPSIS RISK (ng/mL)Low: 0.05-0.50Intermedi ate: 0.51-2.00High: >=2.01 Lab Interpretation (test Abnormal code = 35080-9) [facility] CenterPROCALCITONIN2020-08-28 15:07:00 Test Item Value Reference Range Interpretation Comments PROCALCITONIN (BEAKER) (test code 1.40 ng/mL <0.05 H = 3036) SEPSIS RISK (ng/mL)Low: 0.05-0.50Intermediate: 0.51-2.00High: >=2.01B-type Natriuretic Factor (BNP)2020-03-10 14:52:00 Test Item Value Reference Range Interpretation Comments BNP (test code = 09266-0) 154 pg/mL 0-100 H MICHAEL (test code = MICHAEL) All Terrain Vehicle Racer ID - JOHN C Lab Interpretation (test Abnormal code = 50149-0) [facility] CenterTroponin [id number] 14:52:00 Test Item Value Reference Range Interpretation Comments Troponin I (test code = 0.04 ng/mL 0-0.03 H 00579-4) MICHAEL (test code = MICHAEL) Troponin I [...] C Lab Interpretation (test Abnormal code = 05976-5) [facility] CenterB-TYPE NATRIURETIC FACTOR (BNP)2020-03-10 14:52:00 Test Item Value Reference Range Interpretation Comments B-TYPE NATRIURETIC PEPTIDE (BEAKER) 154 pg/mL 0-100 H (test code = 700) All Terrain Vehicle Racer ID - JOHN CTROPONIN [id number] 14:52:00 Test Item Value Reference Range Interpretation [...] failure, acidosis, acute neurological disease, and persistent tachyarrhythmia.All Terrain Vehicle Racer ID - JOHN COsmolality, serum 2020-03-10 14:47:00 Test Item Value Reference Range Interpretation Comments Osmolality Serum (test 287 See_Comment [Aut omated message] code = 2692-2) The system [employer] generated this result transmitted ref erence range: 275 - 29 5 mOsm/kg. The re ference range was not u sed to interpret this result as normal/abnor mal. Lab Interpretation (test Normal code = 72019-0) [facility] CenterOSMOLALITY, [id number] 14:47:00 Test Item Value Reference Range Interpretation Comments OSMOLALITY, SERUM (BEAKER) (test 287 mOsm/kg 275-295 code = 615) [id number] 14:46:00 Test Item Value Reference Range Interpretation Comments Amylase (test code = 397 U/L 25-125 H 1798-8) MICHAEL (test code = MICHAEL) All Terrain Vehicle Racer ID - JOHN CSpecimen slightly icteric Lab Interpretation (test Abnormal code = 13771-0) [facility] CenterLipase2020-08-28 14:46:00 Test Item Value Reference Range Interpretation Comments Lipase (test code = 689 U/L 8-78 H 3040-3) MICHAEL (test code = MICHAEL) All Terrain Vehicle Racer ID - JOHN CSpecimen slightly icteric Lab Interpretation (test Abnormal code = 75858-6) [facility] CenterTriglycerides2020-08-28 14:46:00 Test Item Value Reference Range Interpretation Comments Triglycerides (test 220 mg/dL code = 2571-8) MICHAEL (test code = MICHAEL) TRIGLYCERIDE REFERENCE RANGELow Risk <150Borderline Risk 150-199High Risk 200-499Very High Risk >=500Operator ID - JOHN CSpecimen slightly icteric [facility] CenterMAGNESIUM2020-08-28 14:46:00 Test Item Value Reference Range Interpretation Comments MAGNESIUM (BEAKER) (test code = 1.3 mg/dL 1.6-2.6 L 627) All Terrain Vehicle Racer ID - JOHN [id number] 14:46:00 Test Item Value Reference Range Interpretation Comments PHOSPHORUS (BEAKER) (test code = 1.8 mg/dL 2.3-4.7 L 604) All Terrain Vehicle Racer ID - JOHN [id number] 14:46:00 Test Item Value Reference Range Interpretation Comments TRIGLYCERIDES (BEAKER) (test code = 220 mg/dL 540) TRIGLYCERIDE REFERENCE RANGELow Risk <150Borderline Risk 150-199High Risk 200-499Very High Risk>=500Operator ID - JUL CSpecimen slightly icteric COMPREHENSIVE METABOLIC [id number] 14:46:00 Test Item Value Reference Range Interpretation [...] S NOT APPLICABLE FOR DIALYSIS PATIEN TS. All Terrain Vehicle Racer ID - JUL CSpecimen slightly [id number] 14:46:00 Test Item Value Reference Range Interpretation Comments AMYLASE (BEAKER) (test code = 349) 397 U/L 25-125 H All Terrain Vehicle Racer ID - JOHN CSpecimen slightly gwdkdajFQNCUF6691-06-94 14:46:00 Test Item Value Reference Range Interpretation Comments LIPASE (BEAKER) (test code = 749) 689 U/L 8-78 H All Terrain Vehicle Racer ID - JOHN CSpecimen slightly gjsizntJmmdvnebfq2453-32-50 14:41:00 Test Item Value Reference Range Interpretation Comments Fibrinogen (test code = 3255-7) 115 mg/dl 225-434 L Lab Interpretation (test code = Abnormal 82165-2) [facility] CenterFIBRINOGEN2020-08-28 14:41:00 Test Item Value Reference Range Interpretation Comments FIBRINOGEN LEVEL (BEAKER) (test 115 mg/dl 225-434 L code = 658) Upukmcn8915-97-15 14:38:00 Test Item Value Reference Range Interpretation Comments Ammonia (test code = 40 See_Comment Specime n slightly 49833-4) hemolyzed [Automated message] The system which generated this result transmit enrique reference range : 18 - 72 mol/L . The reference range was not u sed to interpret th is result as normal/abnormal . MICHAEL (test code = MICHAEL) All Terrain Vehicle Racer ID - JOHN C Lab Interpretation Normal (test code = 15775-3) [facility] CenterAMMONIA2020-08-28 14:38:00 Test Item Value Reference Range Interpretation Comments AMMONIA (BEAKER) 40 mol/L 18-72 Specimen sl ightly (test code = 348) hemolyzed All Terrain Vehicle Racer ID - JOHN CLACTIC ACID, [id number] 14:37:00 Test Item Value Reference Range Interpretation Comments LACTATE BLOOD VENOUS (2) (BEAKER) 2.61 mmol/L 0.50-2.20 H (test code = 2872) All Terrain Vehicle Racer ID - JOHN CSpecimen slightly ictericPT/dSBL9852-33-49 14:36:00 Test Item Value Reference Interpretation Comments Range Protime (test code = 18.0 See_Comment H [Autom ated 5902-2) message] The system which generated this result transmitted reference range : 11.9 - 14.2 seconds. The reference range was not used to interpret this result as normal/abnormal . INR (test code = 1.53 See_Comment [Automated 9221-6) message] The system which generated this result transmitted reference range : <=5.90. The reference range was not used to interpret this result as normal/abnormal . PTT (test code = 32.1 See_Comment [Automated 98807-7) message] The system which generated this result [...] valves. Lab Interpretation Abnormal (test code = 00787-6) [facility] CenterPT/OKHN6065-06-16 14:36:00 Test Item Value Reference Range Interpretation [...] mechanical heart valves.CBC W/PLT COUNT & AUTO [id number] 14:33:00 Test Item Value Reference Range Interpretation [...] (BEAKER) (test code = 2801) Blood gas, ivexhk6528-80-31 14:30:00 Test Item Value Reference Range Interpretation [...] (test code = 30 See_Comment [Auto mated 9195-2) message] The sy stem which generated this result transmitted reference range : 25 - 40 mmHg. The reference range was not used to interpret this result as normal/abnormal . O2 Sat, Rito (test code 52.3 % 40-70 = 2711-0) HCO3, Rito (test code = 23 mmol/L 21-29 41557-4) Base Excess, Rito (test -3.3 mmol/L -2-3 L code = 1927-3) Patient Temperature 37.0 C (test code = 8310-5) FIO2 (test code = 1819) 21 % Lab Interpretation Abnormal (test code = 70116-1) [facility] [id number] 14:30:00 Test Item Value Reference Range Interpretation Comments Calcium, Ion (test code = 1994-3) 1.05 mmol/L 1.12-1.27 L pH, Blood (test code = 29356-9) 7.33 Lab Interpretation (test code = Abnormal 15344-2) [facility], [id number] 14:30:00 Test Item Value Reference Range Interpretation Comments CALCIUM IONIZED (BEAKER) (test 1.05 mmol/L 1.12-1.27 L code = 698) PH, BLOOD (BEAKER) (test code = 7.33 1810) BLOOD GAS, [id number] 14:30:00 Test Item Value Reference Range Interpretation [...]
--- NOTE | 2020-11-21 12:33 | RAD REPORT ---
EXAM DESCRIPTION: CT - Head Brain Wo Cont - 11/21/2020 12:23 pm CLINICAL HISTORY: Alteration of awareness/confusion COMPARISON: October 2020 TECHNIQUE: Computed axial tomography of the head was obtained. IV contrast was not requested. All CT scans are performed using dose optimization technique as appropriate and may include automated exposure control or mA/KV adjustment according to patient size. FINDINGS: An intracranial bleed is not seen . The ventricles are normal in caliber. No extra-axial fluid collection is noted. Mild cerebral atrophy. Fluid within the sinuses/ mastoids is not seen. IMPRESSION: No acute intracranial abnormality is seen. If patient's symptoms persist MRI of the bra in would be recommended.
[2020-11-21] MEDS ORDERED: NA CHLORIDE 0.9% 1,000 ML ONE ×2 (12:39→15:33)
[2020-11-21 13:19] LABS: Absolute Lymphocytes (CBC) 0.5 K/uL (0.7-4.9); Basophils % 1.3 % (0-1.3); Hematocrit 30.6 % (36.0-45.0); MPV 9.4 fL (7.6-11.3); RBC Red Blood Cell Count 2.82 M/uL (3.86-4.86)
[2020-11-21 13:55] LABS: ALT/SGPT 22 U/L (12-78); AST/SGOT 91 U/L (15-37); Albumin 2.6 g/dL (3.4-5.0); Alkaline Phosphatase 170 U/L (45-117); BUN Blood Urea Nitrogen 2 mg/dL (7-18); Bicarbonate 25 mmol/L (21-32); Bilirubin Direct 1.8 mg/dL (0-0.2); Bilirubin Total 2.6 mg/dL (0.2-1.0); Glucose Level 103 mg/dL (74-106); Lipase 48 U/L (73-393); Protein, Total 5.7 g/dL (6.4-8.2); Sodium Level 129 mmol/L (136-145)
[2020-11-21 14:04] LABS: Blood Morphology Comment NOTED (NOT SEEN); Macrocytosis 1+; Platelet Estimate DECR; White Blood Cell Scan OK (OK)
[2020-11-21 14:20] LABS: Potassium 2.7 mmol/L (3.5-5.1)
[2020-11-21] MEDS ORDERED: KCL 20 MEQ/100 mL IVPB 20 MEQ/100 ML BAG IV ONE (15:33)
[2020-11-21 16:23] LABS: Protime INR 1.37
[2020-11-21 17:34] LABS: Urine Blood 1+ (Negative); Urine Glucose Negative (Negative); Urine Protein Trace (Negative); Urine Specific Gravity 1.015 (1.005-1.030)
--- NOTE | 2020-11-21 17:51 | EDPHYS ---
Physician Documentation [facility] Name: Ciara Faith Age: 70 yrs Sex: Female : 1950 Arrival Date: 11/21/2020 Time: 12:02 Bed 18 Private MD: ED Physician Paul Melvin HPI: 11/21 13:49 This 70 yrs old Female presents to ER via EMS with complaints of not eating rn or drinking. 13:49 The patient presents with confusion. Onset: The symptoms/episode began/occurred at an rn unknown time. Possible causes: unknown. Current symptoms: In the emergency department the patient's symptoms have improved. It is unknown whether or not the patient has had similar symptoms in the past. The patient has not recently seen a physician. Per EMS, called EMS for possible AMS. Reports somewhat recent diagnosis of alcoholic cirrhosis, last drink "probably last night", reports feels tired but no fever/head injury/cough/sob/abd pain/urinary symptoms. told EMS that she does not take her medication or wanting to eat or drink. . Historical: - Allergies: 12:14 [place]; tr6 - Home Meds: 12:18 Xifaxan 550 mg oral tab 2 times per day [Active]; Constulose 10 gram/15 mL oral soln 15 tr6 mL once daily [Active]; folic acid 1 mg Oral tab 1 tab once daily [Active]; Lasix 20 mg Oral tab 1 tab once daily [Active]; Protonix 20 mg Oral TbEC 2 tabs once daily [Active]; zinc sulfate 220 (50) mg Oral cap [Active]; Vitamin B-12 1,000 mcg Oral tab [Active]; magnesium oxide 250 mg Oral tab [Active]; Multiple Vitamins oral tab [Active]; - PMHx: 12:14 Alcoholism; GERD; UTI; tr6 - Immunization history:: Adult Immunizations up to date. - Social history:: Smoking status: Patient denies any tobacco usage or history of. Patient uses alcohol, on a daily basis. patient/guardian reports chronic longstanding heavy alcohol consumption. The patient lives with family. - Family history:: not pertinent. - Hospitalizations: : No recent hospitalization is reported. ROS: 13:49 Constitutional: Negative for fever, chills, and weight loss, Eyes: Negative for injury, rn pain, redness, and discharge, Neck: Negative for injury, pain, and swelling, Cardiovascular: Negative for chest pain, palpitations, and edema, Respiratory: Negative for shortness of breath, cough, wheezing, and pleuritic chest pain, Abdomen/GI: Negative for abdominal pain, nausea, vomiting, diarrhea, and constipation, Back: Negative for injury and pain, MS/Extremity: Negative for injury and deformity, Skin: Negative for injury, rash, and discoloration, Neuro: Negative for headache, numbness, tingling, and seizure. Exam: 13:49 Constitutional: This is a well developed, well nourished patient who is awake, alert, rn and in no acute distress. Head/Face: Normocephalic, atraumatic. Eyes: Periorbital areas with no swelling, redness, or edema. Neck: Trachea midline, no thyromegaly or masses palpated, and no cervical lymphadenopathy. Supple, full range of motion without nuchal rigidity, or vertebral point tenderness. No Meningismus. Cardiovascular: Regular rate and rhythm. No pulse deficits. Respiratory: No increased work of breathing, no retractions or nasal flaring. Abdomen/GI: soft, non-tender Skin: Warm, dry MS/ Extremity: Pulses equal, no cyanosis. Neuro: Awake and alert, GCS 15, oriented to person, place, and situation. Cranial nerves II-XII grossly intact. Motor strength 5/5 in all extremities. Sensory grossly intact. Cerebellar exam normal. Vital Signs: 12:09 BP 115 / 65; Pulse 82; Resp 18; Temp 98.6; Pulse Ox 100% ; tr6 15:21 BP 104 / 64; Pulse 86; Resp 18; Pulse Ox 100% ; kg 16:47 BP 104 / 70; Pulse 80; Resp 18; Pulse Ox 100% ; tr6 17:13 BP 120 / 75; Pulse 94; Resp 18; Pulse Ox 100% ; tr6 MDM: 12:02 Patient medically screened. rn 17:48 Differential Diagnosis: electrolyte abnormality, alcohol intoxication, UTI, volume rn depletion. Data reviewed: vital signs, nurses notes, lab test result(s), EKG, radiologic studies, CT scan, and as a result, I will discharge patient. Counseling: I had a detailed discussion with the patient and/or guardian regarding: the historical points, exam findings, and any diagnostic results supporting the discharge/admit diagnosis, lab results, radiology results, the need for outpatient follow up, to return to the emergency department if symptoms worsen or persist or if there are any questions or concerns that arise at home. Response to treatment: the patient's symptoms have mildly improved after treatment, and as a result, I will discharge patient. Special discussion: I discussed with the patient/guardian in detail that at this point there is no indication for admission to the hospital. It is understood, however, that if the symptoms persist or worsen the patient needs to return immediately for re-evaluation. ED course: Pt without signs of withdrawal, ammonia level WNL, + UTI, will dc home given stable vitals. Had long discussion with regarding cirrhosis, outlook, withdrawal, and management of alcoholism. . 11/21 12:04 Order name: CBC with Diff rn 11/21 12:04 Order name: Basic Metabolic Panel 11/21 12:04 Order name: Protime (+inr) 11/21 12:04 Order name: LFT's rn 11/21 12:04 Order name: Lipase rn 11/21 12:04 Order name: AMMONIA; Complete Time: 13:48 11/21 12:04 Order name: ETOH Level; Complete Time: 14:56 11/21 12:04 Order name: Urine Microscopic Only rn 11/21 12:04 Order name: CBC with Automated Diff; Complete Time: 14:07 EDKS 11/21 12:04 Order name: Basic Metabolic Panel; Complete Time: 14:56 EDKS 11/21 12:04 Order name: Protime (+INR); Complete Time: 16:48 EDKS 11/21 12:04 Order name: Liver (Hepatic) Function; Complete Time: 14:56 EDKS 11/21 12:04 Order name: Lipase; Complete Time: 14:56 EDMS 11/21 13:23 Order name: CBC Smear Scan; Complete Time: 14:07 EDKS 11/21 12:04 Order name: IV Start; Complete Time: 13:23 rn 11/21 12:04 Order name: CT Head Brain wo Cont; Complete Time: 12:39 rn 11/21 17:34 Order name: Urine Dipstick-Ancillary; Complete Time: 17:47 EDMS Administered Medications: 13:23 Drug: NS 0.9% 1000 ml Route: IV; Rate: 1000 ml; Site: right wrist; tr6 17:50 Follow up: IV Status: Completed infusion; IV Intake: 1000ml tr6 15:20 Drug: Potassium Chloride 20 mEq Route: IV; Rate: calculated rate; Site: right wrist; kg 17:50 Follow up: IV Status: Completed infusion; IV Intake: 100ml tr6 15:20 Drug: NS 0.9% 1000 ml Route: IV; Rate: 1000 ml; Site: right wrist; kg 17:50 Follow up: IV Status: Completed infusion; IV Intake: 1000ml tr6 Disposition: 11/21/20 17:49 Discharged to Home. Impression: Urinary tract infection, site not specified, Alcohol abuse with intoxication, Alcoholic cirrhosis of liver. - Condition is Stable. - Discharge Instructions: Alcohol Intoxication, Dehydration, Adult, Urinary Tract Infection, Adult. - Prescriptions for Cipro 500 mg Oral Tablet - take 1 tablet by ORAL route every 12 hours for 7 days; 14 tablet. - Medication Reconciliation Form, Thank You Letter, Antibiotic Education, Prescription Opioid Use form. - Follow up: Private Physician; When: As needed; Reason: Recheck today's complaints, Re-evaluation by your physician. - Problem is an ongoing problem. - Symptoms have improved. Signatures: Dispatcher [employer] EDMS Ramona Rodriguez Roman, MD MD rn Ramnanan, Tiffany, RN RN tr6 Monalisa Monte kg Corrections: (The following items were deleted from the chart) 18:02 17:49 11/21/2020 17:49 Discharged to Home. Impression: Urinary tract infection, site tr6 not specified; Alcohol abuse with intoxication; Alcoholic cirrhosis of liver. Condition is Stable. Forms are Medication Reconciliation Form, Thank You Letter, Antibiotic Education, Prescription Opioid Use. Follow up: Private Physician; When: As needed; Reason: Recheck today's complaints, Re-evaluation by your physician. Problem is an ongoing problem. Symptoms have improved. rn
--- NOTE | 2020-11-21 17:51 | ER ---
Nurse's Notes [facility] Name: Ciara Faith Age: 70 yrs Sex: Female : 1950 Arrival Date: 11/21/2020 Time: 12:02 Bed 18 Private MD: Diagnosis: Urinary tract infection, site not specified;Alcohol abuse with intoxication;Alcoholic cirrhosis of liver Presentation: 11/21 12:09 Chief complaint: EMS states: pts called for AMS and alcohol withdrawal. pt AOx2 tr6 per EMS. pt has not been taking her meds or eating. Coronavirus screen: Client denies travel out of the [place] in the last 14 days. Ebola Screen: Patient negative for fever greater than or equal to 101.5 degrees Fahrenheit, and additional compatible Ebola Virus Disease symptoms Patient denies exposure to infectious person. Patient denies travel to an Ebola-affected area in the 21 days before illness onset. Initial Sepsis Screen: Does the patient meet any 2 criteria? No. Patient's initial sepsis screen is negative. Does the patient have a suspected source of infection? No. Patient's initial sepsis screen is negative. Risk Assessment: Do you want to hurt yourself or someone else? Patient reports no desire to harm self or others. Onset of symptoms is unknown. 12:09 Method Of Arrival: EMS: [facility] tr6 12:09 Acuity: LINA 3 tr6 Triage Assessment: 12:12 General: Appears in no apparent distress. Behavior is calm, cooperative, appropriate tr6 for age. Pain: Denies pain. EENT: Sclera/Cornea yellow. Neuro: Level of Consciousness is awake, alert, obeys commands, Oriented to person, place, Assembler are equal bilaterally Moves all extremities. Speech is normal, Facial symmetry appears normal, Intact. Cardiovascular: No deficits noted. Respiratory: No deficits noted. GI: Abdomen is distended, Patient currently denies pain. : No deficits noted. Derm: Skin is jaundiced. Musculoskeletal: No deficits noted. Historical: - Allergies: 12:14 [place]; tr6 - Home Meds: 12:18 Xifaxan 550 mg oral tab 2 times per day [Active]; Constulose 10 gram/15 mL oral soln 15 tr6 mL once daily [Active]; folic acid 1 mg Oral tab 1 tab once daily [Active]; Lasix 20 mg Oral tab 1 tab once daily [Active]; Protonix 20 mg Oral TbEC 2 tabs once daily [Active]; zinc sulfate 220 (50) mg Oral cap [Active]; Vitamin B-12 1,000 mcg Oral tab [Active]; magnesium oxide 250 mg Oral tab [Active]; Multiple Vitamins oral tab [Active]; - PMHx: 12:14 Alcoholism; GERD; UTI; tr6 - Immunization history:: Adult Immunizations up to date. - Social history:: Smoking status: Patient denies any tobacco usage or history of. Patient uses alcohol, on a daily basis. patient/guardian reports chronic longstanding heavy alcohol consumption. The patient lives with family. - Family history:: not pertinent. - Hospitalizations: : No recent hospitalization is reported. Screenin:11 Abuse screen: Denies threats or abuse. Denies injuries from another. Nutritional tr6 screening: pt has not been eating for the past couple days. Tuberculosis screening: No symptoms or risk factors identified. Fall Risk Fall in past 12 months (25 points). Assessment: 12:15 Reassessment: see triage assesment. tr6 12:22 Reassessment: pt transported to CT via stretcher. tr6 13:46 Reassessment: lab notified to redraw blue top. tr6 14:20 Reassessment: failed attempt by lab at bedside to draw blue top. kg 15:49 Reassessment: phlebotomy at bedside for redraw of blue top. kg 15:51 Reassessment: Eric [phone], leaving. notify him when pt is ready for kg discharge. 17:36 Reassessment: MD melvin at bedside. tr6 17:48 Reassessment: pending urine. tr6 Vital Signs: 12:09 BP 115 / 65; Pulse 82; Resp 18; Temp 98.6; Pulse Ox 100% ; tr6 15:21 BP 104 / 64; Pulse 86; Resp 18; Pulse Ox 100% ; kg 16:47 BP 104 / 70; Pulse 80; Resp 18; Pulse Ox 100% ; tr6 17:13 BP 120 / 75; Pulse 94; Resp 18; Pulse Ox 100% ; tr6 ED Course: 12:02 Patient arrived in ED. rn 12:02 Paul Melvin MD is Attending Physician. rn 12:11 Triage completed. tr6 12:13 Patient has correct armband on for positive identification. Fall risk band placed. tr6 Placed in gown. Bed in low position. Call light in reach. Side rails up X2. 12:14 Patient placed in an exam room. tr6 12:14 No provider procedures requiring assistance completed. tr6 12:23 CT Head Brain wo Cont In Process Unspecified. EDMS 13:20 Talia Fernandez RN is Primary Nurse. tr6 13:23 Inserted saline lock: 20 gauge in right wrist, using aseptic technique. tr6 17:51 IV discontinued, intact, bleeding controlled, No redness/swelling at site. Pressure tr6 dressing applied. Administered Medications: 13:23 Drug: NS 0.9% 1000 ml Route: IV; Rate: 1000 ml; Site: right wrist; tr6 17:50 Follow up: IV Status: Completed infusion; IV Intake: 1000ml tr6 15:20 Drug: Potassium Chloride 20 mEq Route: IV; Rate: calculated rate; Site: right wrist; kg 17:50 Follow up: IV Status: Completed infusion; IV Intake: 100ml tr6 15:20 Drug: NS 0.9% 1000 ml Route: IV; Rate: 1000 ml; Site: right wrist; kg 17:50 Follow up: IV Status: Completed infusion; IV Intake: 1000ml tr6 Intake: 17:50 IV: 100ml; Total: 100ml. tr6 17:50 IV: 1000ml; Total: 1100ml. tr6 17:50 IV: 1000ml; Total: 2100ml. tr6 Outcome: 17:49 Discharge ordered by . rn 17:51 Discharged to home via wheelchair, with family, with significant other. tr6 17:51 Condition: stable 17:51 Discharge instructions given to patient, family, significant other, Instructed on discharge instructions, follow up and referral plans. safety practices, Demonstrated understanding of instructions, follow-up care. 18:02 Patient left the ED. tr6 Addendum: 11/27/2020 09:48 Addendum: Culture Results: Positive urine culture. No further action required. Bacteria s v sensitive to prescribed antibiotic. Signatures: Dispatcher [employer] Kari Beatty RN RN sv Nieto, Roman, MD MD rn Ramnanan, Tiffany, RN RN tr6 Monalisa Monte kg
[2020-11-21 18:24] VITALS: O2SAT 100
[2020-11-21 18:26] VITALS: TEMP 98.6
[2020-11-21 18:29] VITALS: BP 120/75
[2020-11-21 18:39] LABS: Urine Bacteria >50 /HPF (<20)
== END 2020-11-21 18:02 | disposition home or self-care (01) ==
LOC: ER 11:55
DX: N39.0 Urinary tract infection, site not specified (principal); F10.229 Alcohol dependence with intoxication, unspecified; K70.30 Alcoholic cirrhosis of liver without ascites; K21.9 Gastro-esophageal reflux disease without esophagitis; Z88.5 Allergy status to narcotic agent
CPT/HCPCS: 87088; 85025; 87086; 80048; 36415; 80320; 82140; 85610; 80076; 83690; 70450; J3480; J7030 ×2; 81003; 81015; 87077; 87186; 96361; 96365; 96366; 99284

== ENCOUNTER 2020-11-27 10:44 | Inpatient (IN) | payer OTHER, MEDICARE ==
--- OUTSIDE RECORDS SUMMARY | 2020-11-27 10:48 | XMS REPORT | Continuity of Care Document ---
:1950 Author Organization [facility] t Address [address] [place] [address] Care Team Providers Name Role Phone Miranda Attending Clinician Unavailable Fer Esparza MD Attending Clinician [phone] Paola Ramírez MD Attending Clinician [phone] FER ESPARZA Attending Clinician Unavailable PAOLA RAMÍREZ Admitting Clinician Unavailable Payers Payer Name Policy Type Policy Effective Date Expiration Date Sour ce Number MEDICAREMEDICARE A [id number] 2015 ROSHAN Sweet [id number] 2014-P 00:00:00 - Medical resentMedicare Center [facility] [id number] 2020 ROSHAN Lua SUPPLEMENT/INDIVIDUALA 00:00:00 - Medical [id number] /07/2020-PresentMedigap Problems Condition Condition Condition Status Onset Resolution Last Treating Co mments Source Name Details Category Date Date Treatment Clinician Date Acute Acute Disease Active [facility] injury [facility]: Medical 00 [place] Hyponatrem Hyponatrem Disease Active [facility] ia [facility]10 [facility] - [facility] Medical 00 Center 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 ent [facility] Lena Adverse Active Info Not [facility] Reaction [facility] Social History Social Habit Start Date Stop Date Quantity Comments Source Sex Assigned At [facility] Medications Ordered Filled Start Stop Current Ordering Indication Dosage Frequency Signature Comments Components Source Medication Medication Date Date Medication? Clinician (SIG) Name Name Cefdinir Cefdinir Carin as [facility] 02-27 Maddison directed [facility] - 00:00: 00:00 Memoria 00 :00 [facility] Vital Signs Vital Name Observation Time Observation Value Comments Source Systolic blood 2020-03-14 12:22:00 138 mm[Hg] [facility] Diastolic blood 2020-03-14 12:22:00 63 mm[Hg] [facility] Heart rate 2020-03-14 12:22:00 77 /min [facility] Body temperature 2020-03-14 12:22:00 36.17 Stella [facility] Respiratory rate 2020-03-14 12:22:00 18 /min [facility] Oxygen saturation in 2020-03-14 12:22:00 99 /min [facility] Arterial blood by Medical Ce nter Pulse oximetry Body weight 2020-03-10 14:00:00 59.9 kg [facility] Procedures Procedure Date / Time Performed Performing Clinician Dewayne rhodes POCT-GLUCOSE METER 2020-03-14 12:24:00 Sarai Ramírez [facility] POCT-GLUCOSE METER 2020-03-14 05:37:00 Sarai Ramírez [facility] CBC W/PLT COUNT & AUTO 2020-03-14 05:26:00 Madi Mcleod [facility] S t kes DIFFERENTIAL [facility] COMPREHENSIVE METABOLIC 2020-03-14 05:26:00 Madi Mcleod [facility] MAGNESIUM 2020-03-14 05:26:00 Madi Mcleod [facility] PHOSPHORUS 2020-03-14 05:26:00 [facility] POCT-GLUCOSE METER 2020-03-13 23:47:00 [facility] 2020-03-13 14:07:00 [facility] PO[facility]SE [facility]ER 2020-03-13 12:28[facility]OL[facility] 2020-03-13 07:33:00 Madi Mcleod [facility] MAGNESIUM 2020-03-13 07:33:00 Madi Mcleod [facility] PHOSPHORUS 2020-03-13 07:33:00 [facility] POCT-GLUCOSE METER 2020-03-13 07:24:00 [facility] POCT-[facility]SE METER 2020-03-13 06:52:00 [facility] CBC W/PLT COUNT & AUTO 2020-03-13 05:56:00 Madi Mcleod [facility] S t kes [facility] POCT-GLUCOSE METER 2020-03-12 16:01:00 [facility] POCT-GLUCOSE METER 2020-03-12 12:56:00 [facility] POTASSIUM 2020-03-12 12:11:00 [facility] POCT-GLUCOSE METER 2020-03-12 08:41:00 [facility] CBC W/PLT COUNT & AUTO 2020-03-12 03:12:00 [facility] DI[facility]ENTIAL [facility] COMPREHENSIVE METABOLIC 2020-03-12 03:12:00 Madi Mcleod [facility] PANEL [facility] MAGNESIUM 2020-03-12 03:12:00 Madi Mcleod [facility] PHOSPHORUS 2020-03-12 03:12:00 Madi Mcleod [facility] POCT-GLUCOSE METER 2020-03-11 19:41:[address] [facility] POCT-GLUCOSE METER 2020-03-11 17:59:[address] [facility] POCT-GLUCOSE METER 2020-03-11 12:18:[address] [facility] POCT-GLUCOSE METER 2020-03-11 05:34:00 Odilia Rubin [facility] CBC W/PLT COUNT & AUTO 2020-03-11 04:42:00 Madi Mcleod [facility] DIFFERENTIAL [facility] COMPREHENSIVE METABOLIC 2020-03-11 04:42:00 Madi Mcleod [facility] MAGNESIUM 2020-03-11 04:42:00 Madi Mcleod [facility] PHOSPHORUS 2020-03-11 04:42:00 [facility] RAPID DRUG SCREEN, URINE 2020-03-11 02:45:00 [facility] SODIUM, RANDOM URINE 2020-03-11 02:45:00 [facility] CREATININE, RANDOM URINE 2020-03-11 02:45:00 [facility] UREA NITROGEN, RANDOM 2020-03-11 02:45:00 [facility] URINE [facility] URINALYSIS W/ REFLEX 2020-03-11 02:44:00 Shani, [facility] URINE CULTURE [facility] OSMOLALITY, URINE 2020-03-11 02:44:00 [facility] POCT-GLUCOSE METER 2020-03-11 00:48:00 Odilia Rubin [facility] LACTIC ACID, VENOUS 2020-03-10 21:05:00 [facility] POCT-GLUCOSE METER 2020-03-10 17:59:00 Odilia Rubin [facility] BLOOD CULTURE 2020-03-10 14:42:00 Shani [facility] SARS-COV2/RT-PCR ([facility] & 2020-03-10 14:27:00 Shani [facility] - REF LABS) [facility] CALCIUM, IONIZED 2020-03-10 14:19:00 Shani [facility] CBC W/PLT COUNT & AUTO 2020-03-10 14:16:00 Madi Mcleod [facility] S t kes - DIFFERENTIAL [facility] BLOOD CULTURE 2020-03-10 14:16:00 Shani [facility] COMPREHENSIVE METABOLIC 2020-03-10 14:16:00 [facility] PAN[facility] MAGNESIUM 2020-03-10 14:16:00 [facility] PHOSPHORUS 2020-03-10 14:16:00 Shani [facility] B-TYPE NATRIURETIC FACTOR 2020-03-10 14:16:00 Madi Mcleod I [facility] - (BNP) [facility] LIPASE 2020-03-10 14:16:00 Shani [facility] AMYLASE 2020-03-10 14:16:00 Shani [facility] TRIGLYCERIDES 2020-03-10 14:16:00 Shani [facility] PT/APTT 2020-03-10 14:16:00 Shani [facility] FIBRINOGEN 2020-03-10 14:16:00 [facility] BLOOD GAS, VENOUS 2020-03-10 14:16:00 [facility] AMMONIA 2020-03-10 14:16:00 [facility] TROPONIN I 2020-03-10 14:16:00 [facility] HEPATITIS PANEL, ACUTE 2020-03-10 14:16:00 [facility] LACTIC ACID, VENOUS 2020-03-10 14:16:00 [facility] PROCALCITONIN 2020-03-10 14:16:00 [facility] OSMOLALITY, SERUM 2020-03-10 14:16:00 [facility] TSH/FREE T4 IF INDICATED 2020-03-10 14:16:00 [facility] CORTISOL 2020-03-10 14:16:00 [facility] T4, FREE 2020-03-10 14:16:00 [facility] Plan of Care Planned Activity Planned Date Details Comments Source Future Scheduled 2021-03-[address] [facility] 00:00:00 (Season Ended) [code Medical Center = INFLUENZA VACCINE (Season Ended)] Future Scheduled 2020-07-[address] [facility] - Test 00:00:00 (12+) [code = Medical Center DEPRESSION SCREENING (12+)] Future Scheduled 2016-01-[address] [facility] - Test 00:00:00 WELLNESS (YEAR 2 or Medical Center FIRST YEAR if no IPPE) [code = MEDICARE ANNUAL WELLNESS (YEAR 2 or FIRST YEAR if no IPPE)] Future Scheduled 2000-02-01 SHINGLES VACCINES ([address] [facility] - Test 00:00:00 of 2) [code = Medical Center SHINGLES VACCINES (1 of 2)] Future Scheduled 1969 [...] es - Test 00:00:00 [facility]) [code = 991987566] Future Scheduled [address] [facility] - Test 00:00:00 [facility] colon (procedure) [code = 105185816] Encounters Start End Encounter Admission Attending Care Care Encounter Source Date/Time Date/Time Type Type Clinicians Facility Department ID 2020-11-21 2020-11-21 [id number] 2020-11-01 2020-11-01 [id number] 2020-10-30 2020-10-30 [id number] [facility] 2020-10-25 2020-10-25 [facility] [id number] [facility] 2020-09-21 2020-09-21 [facility] [id number] 2020-09-19 2020-09-19 [facility] [id number] 2020-06-21 2020-06-21 [facility] [id number] 2020-06-06 2020-06-06 Outpatient [facility] [id number] [facility] 2020-06-06 2020-06-06 Outpatient [facility] [id number] [facility] 2020-02-28 2020-02-28 [facility] [id number] 09:52:00 09:52:00 t Specialty/U Yareli kes - Specialty ro[facility]y [facility]ori [facility]Urology Clinic l Clinic Outpati ent Clinics 2020-02-25 2020-02-25 [facility] [id number] 11:00:00 11:00:00 t Specialty/U Yareli kes - Specialty rology [facility]rology Clinic l Clinic Outpati ent Clinics 2019-12-29 2019-12-29 [facility] [id number] 10:02:00 10:02:00 t Specialty/U Yareli kes - Specialty rology Memori [facility] /[facility]rology Clinic l Clinic Outpati ent Clinics 2019-12-29 2019-12-29 [facility] [id number] 10:02:00 10:02:00 t Specialty/U Yareli kes - Specialty rology Memori [facility] /Urology Clinic l Clinic Outpati ent Clinics 2019-12-13 2019-12-13 [facility] [id number] 11:00:00 11:00:00 t Specialty/U Yareli kes - Specialty rology Memori a /Urology Clinic l Clinic Outpati ent Clinics 2019-12-13 2019-12-13 [facility] [id number] 08:52:00 08:52:00 t Specialty/U Yareli kes - Specialty rology Memori a /Urology Clinic l Clinic Outpati ent Clinics 2019-10-14 2019-10-14 [facility] [id number] 11:03:00 11:03:00 t Specialty/U Yareli kes - Specialty rology Memori [facility] /Urology Clinic l Clinic Outpati ent Clinics 2019-10-12 2019-10-12 [facility] [id number] 13:32:00 13:32:00 t Specialty/U Yareli kes - Specialty rology Memori a /Urology Clinic l Clinic Outpati ent Clinics 2019-08-30 2019-08-30 [facility] [id number] 11:46:00 11:46:00 t [facility] Medicine Outpati ent Clinics 2019-08-22 2019-08-22 [facility] [id number] 12:35:00 12:35:00 t [facility] Medicine Outpati ent Clinics 2019-08-18 2019-08-18 [facility] [id number] 10:45:00 10:45:00 t [facility] Medicine Outpati ent Clinics 2019-06-21 2019-06-21 [facility] [id number] 10:00:00 10:00:00 t Specialty/U Yareli kes - Specialty rology Memori a /Urology Clinic l Clinic Outpati ent Clinics 2019-06-01 2019-06-01 [facility] [id number] 10:00:00 10:00:00 t [facility] Medicine Outpati ent Clinics 2019-05-18 2019-05-18 [facility] [id number] 10[facility]40:00 10:40:00 t [facility] Medicine Outpati ent Clinics 2019-04-19 2019-04-19 [facility] [id number] 23:36:00 23:36:00 t [facility] Medicine Outpati ent Clinics 2019-04-03 2019-04-03 [facility] [id number] 04:57:00 04:57:00 t [facility] Medicine Outpati ent Clinics 2019-03-17 2019-03-17 [facility] [id number] 21:43:00 21:43:00 t [facility] Medicine Outpati ent Clinics 2019-03-17 2019-03-17 [facility] [id number] 10:40:00 10:40:00 t [facility] Medicine Outpati ent Clinics 2019-03-08 2019-03-08 [facility] [id number] 15:04:00 15:04:00 t [facility] Medicine Outpati ent Clinics 2019-03-01 2019-03-01 [facility] [id number] 20:32:00 20:32:00 t [facility] Medicine Outpati ent Clinics 2019-02-26 2019-02-26 [facility] [id number] 16:08:00 16:08:00 t [facility] Medicine Outpati ent Clinics 2019-02-22 2019-02-22 [facility] [id number] 08:19:00 08:19:00 t [facility] Medicine Outpati ent Clinics 2019-02-15 2019-02-15 [facility] [id number] 09:20:00 09:20:00 t [facility] Medicine Outpati ent Clinics 2019-01-18 2019-01-18 [facility] [id number] 10:00:00 10:00:00 t Specialty/U Yareli kes - Specialty rology Memori a /Urology Clinic l Clinic Outpati ent Clinics 2018-09-02 2018-09-02 [facility] [id number] 10:45:00 10:45:00 t [facility] Medicine Outpati ent Clinics 2018-07-21 2018-07-21 [facility] [id number] 09:30:00 09:30:00 t Specialty/U Yareli kes - Specialty rology Memori a /Urology Clinic l Clinic Outpati ent Clinics 2018-03-11 2018-03-11 [facility] [id number] 09:30:00 09:30:00 t Specialty/U Yareli kes - Specialty rology Memori a /Urology Clinic l Clinic Outpati ent Clinics 2018-02-19 2018-02-19 [facility] [id number] 09:00:00 09:00:00 t Specialty/U Yareli kes - Specialty rology Memori a /Urology Clinic l Clinic Outpati ent Clinics 2018-01-16 2018-01-16 [facility] [id number] 15:30:00 15:30:00 t Specialty/U Yareli kes - Specialty rology Memori a /Urology Clinic l Clinic Outpati ent Clinics 2017-12-25 2017-12-25 [facility] [id number] 10:38:00 10:38:00 t Specialty/U Yareli kes - Specialty rology Memori a /Urology Clinic l Clinic Outpati ent Clinics 2017-12-24 2017-12-24 [facility] [id number] 09:52:00 09:52:00 t Specialty/U Yareli kes - Specialty rology Memori a /Urology Clinic l Clinic Outpati ent Clinics 2017-12-11 2017-12-11 [facility] [id number] 09:30:00 09:30:00 t Specialty/U Yareli kes - Specialty rology Memori a /Urology Clinic l Clinic Outpati ent Clinics 2017-12-09 2017-12-09 [facility] [id number] 09:35:00 09:35:00 t Specialty/U Yareli kes - Specialty rology Memori a /Urology Clinic l Clinic Outpati ent Clinics 2017-11-20 2017-11-20 [facility] [id number] 09:00:00 09:00:00 t Specialty/U Yareli kes - Specialty rology Memori a /Urology Clinic l Clinic Outpati ent Clinics 2017-11-06 2017-11-06 [facility] [id number] 10:05:00 10:05:00 t Specialty/U Yareli kes - Specialty rology Memori a /Urology Clinic l Clinic Outpati ent Clinics 2017-11-06 2017-11-06 [facility] [id number] 09:12:00 09:12:00 t Specialty/U Yareli kes - Specialty rology Memori a /Urology Clinic l Clinic Outpati ent Clinics 2017-11-04 2017-11-04 Outpatient Yanni Arangojacobrodolfo [id number] 09:45:00 09:45:00 t Specialty/U Yareli kes - Specialty rology Memori a /Urology Clinic l Clinic Outpati ent Clinics 2017-10-20 2017-10-20 Outpatient Nbajacob Yannit [id number] 08:45:00 08:45:00 t [facility] Medicine l [facility] Results Test Description Test Time Test Comments Results Result Comments Source Blood Culture - Routine (Right Venipuncture) 2020-03-15 17:0 0:00 Test Item Value Reference Range Interpretation Comme nts Result (test code = 6463-4) No growth in 5 days [facility] [id number] 17:00:00 Test Item Value Reference Range Interpretation Comments CULTURE (BEAKER) (test No growth in 5 days code = 1095) BLOOD [id number] 15:00:00 Test Item Value Reference Range Interpretation Comments CULTURE (BEAKER) (test No growth in 5 days code = 1095) POC-Glucose [id number] 12:35:00 Test Item Value Reference Range Interpretation Comments POC-Glucose Meter (test 103 mg/dL 70-110 : TE STED AT [facility] code = 1538) 67[address] [facility], 770 30: Slot Floor Person/Techni benjamin ID = [id number] for KASSI EMILY Lab Interpretation (test Normal code = 79510-3) [facility] [id number] 12:35:00 Test Item Value Reference Range Interpretation Comments POC-GLUCOSE METER 103 mg/dL 70-110 : TESTED A T [facility] 6720 (BEAKER) (test code = SHABBIR Jiménez [facility], 1538) 24995: Slot Floor Person/Techni benjamin ID = [id number] for MICHELA JERI EMILY CBC with platelet count + automated [id number] 06:54:00 Test Item Value Reference Range Interpretation Comments WBC (test code = 6690-2) 3.5 See_Comment [A utomated message] The system whic h generated this result transmitted ref erence range: 3.5 - 10 .5 K/L. The refe rence range was not u sed to interpret this result as normal/abnor mal. RBC (test code = 789-8) 2.79 See_Comment L [Au tomated message] The system [employer] generated this result transmitted ref erence range: 3.93 - 5 .22 M/L. The refe rence range was not u sed to interpret this result as normal/abnor mal. MCHC (test code = 786-4) 36.0 See_Comment H [A utomated message] The system [employer] generated this result transmitted ref erence range: [...] L [Aut omated message] 777-3) The system [employer] generated this result transmitted ref erence range: 150 - 45 0 K/CU MM. The referen ce range was not u sed to interpret this result as normal/abnor mal. MPV (test code = 10.5 fL 9.4-12.3 78443-1) nRBC (test code = 413) 0 See_Comment [Aut omated message] The system [employer] generated this result transmitted ref erence range: [...] See_Comment [Aut omated message] 670) The system [employer] generated this result transmitted ref erence range: 1.56 - 6 .13 K/L. The refe rence range was not u sed to interpret this result as normal/abnor mal. # Lymphs (test code = 0.43 See_Comment L [Auto mated message] 414) The system [employer] generated this result transmitted ref erence range: 1.18 - 3 .74 K/L. The refe rence range was not u sed to interpret this result as normal/abnor mal. # Monos (test code = 0.98 See_Comment H [Autom ated message] 415) The system [employer] generated this result transmitted ref erence range: 0.24 - 0 .36 K/L. The refe rence range was not u sed to interpret this result as normal/abnor mal. # Eos (test code = 416) 0.07 See_Comment [Au tomated message] The system [employer] generated this result transmitted ref erence range: 0.04 - 0 .36 K/L. The refe rence range was not u sed to interpret this result as normal/abnor mal. # Baso (test code = 417) 0.01 See_Comment [A utomated message] The system [employer] generated this result transmitted ref erence range: 0.01 - 0 .08 K/L. The refe rence range was not u sed to interpret this result as normal/abnor mal. Immature 1 % 0-1 Granulocytes-Relative (test code = 2801) Lab Interpretation (test Abnormal code = 21396-5) [facility] W/PLT COUNT & AUTO [id number] 06:54:00 Test Item Value Reference Range Interpretation [...] (BEAKER) (test code = 2801) Comprehensive metabolic [id number] 06:45:00 Test Item Value Reference Range Interpretation Comments Protein, Total (test 5.1 See_Comment L [Autom ated code = 2885-2) message] The system which generated this result transmit enrique reference range : 6.0 - 8.3 gm/dL . The reference range was not u sed to interpret th is result as normal/abnormal . Albumin (test code = 3.0 g/dL 3.5-5 L 53224-8) Alkaline Phosphatase 128 U/L 40-150 (test code = 6768-6) Total Bilirubin (test 2.5 mg/dL 0.2-1.2 H code = 1974-2) Sodium (test code = 132 meq/L 136-145 L 2951-2) Potassium (test code 2.5 meq/L 3.5-5.1 LL = 2823-3) Chloride (test code = 98 meq/L 98-107 2075-0) CO2 (test code = 21 meq/L 22-29 L 8-9) BUN (test code = 10 mg/dL 7-21 3094-0) Creatinine (test code 0.55 mg/dL 0.57-1.25 L = 2160-0) Glucose (test code = 89 mg/dL 70-105 2345-7) Calcium (test code = 7.6 mg/dL 8.4-10.2 L 38691-3) AST (test code = 75 U/L 5-34 H 1920-8) ALT (test code = 64 U/L 6-55 H 1742-6) EGFR (test code = 109 mL/min/1.73 [place] [address]-9) NOT ACCURATE CREATININE CLEARANCE IN PREDICTING GLOMERULAR FILTRATION RATE . ESTIMATED GFR I S NOT APPLICABLE FOR DIALYSIS PATIEN MICHAEL (test code = MICHAEL) Slot Floor Person ID - EDASI Lab Interpretation Abnormal (test code = 75584-5) [facility]OL[facility] [id number] 06:45:00 Test Item Value Reference Range Interpretation [...] S NOT APPLICABLE FOR DIALYSIS PATIEN TS. Slot Floor Person ID - [id number] 06:34:00 Test Item Value Reference Range Interpretation Comments Magnesium (test code = 1.6 mg/dL 1.6-2.6 95804-6) MICHAEL (test code = MICHAEL) Slot Floor Person ID - EDASI Lab Interpretation (test Normal code = 01548-2) [facility] 06:34:00 Test Item Value Reference Range Interpretation Comments Phosphorus (test code = 2.3 mg/dL 2.3-4.7 2777-1) MICHAEL (test code = MICHAEL) Slot Floor Person ID - EDASI Lab Interpretation (test Normal code = 00747-8) [facility] 06:34:00 Test Item Value Reference Range Interpretation Comments PHOSPHORUS (BEAKER) (test code = 2.3 mg/dL 2.3-4.7 604) Slot Floor Person ID - [id number] 06:34:00 Test Item Value Reference Range Interpretation Comments MAGNESIUM (BEAKER) (test code = 1.6 mg/dL 1.6-2.6 627) Slot Floor Person ID - EDASIPOCT-GLUCOSE [id number] 05:48:00 Test Item Value Reference Range Interpretation Comments POC-GLUCOSE METER 86 mg/dL 70-110 : TESTED A T [facility] 6720 (BEAKER) (test code = [facility], 1538) [address]: Slot Floor Person/Techni benjamin ID = [id number] for SAND ERS, KRAIG POCT-GLUCOSE [id number] 23:58:00 Test Item Value Reference Range Interpretation Comments POC-GLUCOSE METER 94 mg/dL 70-110 : TESTED A T [facility] 6720 (BEAKER) (test code = [facility], 1538) 30252: Slot Floor Person/Techni benjamin ID = [id number] for SAND ERS, KRAIG POCT-GLUCOSE [id number] 14:18:00 Test Item Value Reference Range Interpretation Comments POC-GLUCOSE METER 93 mg/dL 70-110 : TESTED A T [facility] 6720 (BEAKER) (test code = [facility], 1538) 85003: Slot Floor Person/Techni benjamin ID = [id number] for Sylvia Owens POCT-GLUCOSE [id number] 12:42:00 Test Item Value Reference Range Interpretation Comments POC-GLUCOSE METER 96 mg/dL 70-110 : TESTED A T [facility] 6720 (BEAKER) (test code = [facility], 1538) 80278: Slot Floor Person/Techni benjamin ID = [id number] for Paco Alcantara [id number] 08:22:00 Test Item Value Reference Range Interpretation Comments PHOSPHORUS (BEAKER) (test code = 1.3 mg/dL 2.3-4.7 LL 604) Slot Floor Person ID - PIAYA LCOMPREHENSIVE METABOLIC [id number] 08:21:00 Test Item Value Reference Range Interpretation [...] S NOT APPLICABLE FOR DIALYSIS PATIEN TS. Slot Floor Person ID - RYAN SHEGISEWJY0783-77-25 08:16:00 Test Item Value Reference Range Interpretation Comments MAGNESIUM (BEAKER) (test code = 1.3 mg/dL 1.6-2.6 L 627) Slot Floor Person ID - RYAN LCBC W/PLT COUNT & AUTO [id number] 07:59:00 Test Item Value Reference Range Interpretation [...] PERCENT (BEAKER) (test code = 2801) POCT-GLUCOSE [id number] 07:35:00 Test Item Value Reference Range Interpretation Comments POC-GLUCOSE METER 98 mg/dL 70-110 : TESTED A T [facility] 6720 (BEAKER) (test code = [facility], 1538) 53045: Slot Floor Person/Techni benjamin ID = [id number] for Will satinder, Denitaa POCT-GLUCOSE [id number] 07:03:00 Test Item Value Reference Range Interpretation Comments POC-GLUCOSE METER 103 mg/dL 70-110 : TESTED A T [facility] 6720 (BEAKER) (test code = [facility], 1538) 99249: Slot Floor Person/Techni benjamin ID = [id number] for Jaimee Mccoy POCT-GLUCOSE [id number] 16:13:00 Test Item Value Reference Range Interpretation Comments POC-GLUCOSE METER 110 mg/dL 70-110 : TESTED A T [facility] 6720 (BEAKER) (test code = [facility], 1538) 97956: Slot Floor Person/Techni benjamin ID = [id number] for Marietta Ramirez POCT-GLUCOSE [id number] 13:14:00 Test Item Value Reference Range Interpretation Comments POC-GLUCOSE METER 127 mg/dL 70-110 H : TESTED A T [facility] 6720 (BEAKER) (test code = [facility], 1538) 05714: Slot Floor Person/Techni benjamin ID = [id number] for Marietta Ramirez Jobshfixe7160-24-18 12:48:00 Test Item Value Reference Range Interpretation Comments Potassium (test code = 3.1 meq/L 3.5-5.1 L Speci men 2823-3) slightly hemolyzed MICHAEL (test code = MICHAEL) Slot Floor Person ID - JOHN C Lab Interpretation Abnormal (test code = 39442-0) [facility] 12:48:00 Test Item Value Reference Range Interpretation Comments POTASSIUM (BEAKER) 3.1 meq/L 3.5-5.1 L Specimen slightly (test code = 379) hemolyzed Slot Floor Person ID - JOHN CPOCT-GLUCOSE [id number] 08:55:00 Test Item Value Reference Range Interpretation Comments POC-GLUCOSE METER 148 mg/dL 70-110 H : TESTED A T [facility] 6720 (BEAKER) (test code = [facility], 153) 21627: Slot Floor Person/Techni benjamin ID = [id number] for Katharina Ramireza COMPREHENSIVE METABOLIC [id number] 04:19:00 Test Item Value Reference Range Interpretation [...] S NOT APPLICABLE FOR DIALYSIS PATIEN TS. Slot Floor Person ID - RYAN LSpecimen slightly snbwrudYZNQXYCEER3633-91-37 04:19:00 Test Item Value Reference Range Interpretation Comments PHOSPHORUS (BEAKER) (test code = 1.5 mg/dL 2.3-4.7 LL 604) Slot Floor Person ID - RYAN [id number] 04:16:00 Test Item Value Reference Range Interpretation Comments MAGNESIUM (BEAKER) (test code = 1.7 mg/dL 1.6-2.6 627) Slot Floor Person ID - RYAN LCBC W/PLT COUNT & AUTO [id number] 03:32:00 Test Item Value Reference Range Interpretation [...] PERCENT (BEAKER) (test code = 2801) POCT-GLUCOSE [id number] 19:52:00 Test Item Value Reference Range Interpretation Comments POC-GLUCOSE METER 122 mg/dL 70-110 H : TESTED Joselito Armstrong [facility] 6720 (BEAKER) (test code = [facility], 1538) 54416: Slot Floor Person/Techni benjamin ID = [id number] for Jaimee Mccoy POCT-GLUCOSE [id number] 18:10:00 Test Item Value Reference Range Interpretation Comments POC-GLUCOSE METER 115 mg/dL 70-110 H : TESTED A T [facility] 6720 (BEAKER) (test code = [facility], 1538) 51856: Slot Floor Person/Techni benjamin ID = [id number] for BONI HDZ SARS-CoV2/RT-PCR (Asymptomatic ONLY)2020-03-11 14:46:00 Test Item Value Reference Range Interpretation Comments SARS-COV2/RT-PCR Negative Not Detected, (test code = Negative, See 88525-3) external report for linked test SARS-COV-2 [facility] PERFORM[facility] (test code = 48732-8) MICHAEL (test code = Negative result for [...] of the Act. Fact Sheet for Healthcare Providers:https://www.[employer]unt.[employer]go/sites/default/f riley/product/documents/F act_Sheet_HC_Providers_L akg_WAQJ-VkZ-9.pdf Fact Sheet for Healthcare Patients:https://www.Movile/sites/default/fi les/product/documents/Fa ct_Sheet_Patients_Lyra_S ARS-CoV-2.pdf Performing Laboratory:[facility] [facility] [place] [address] [facility] ([facility])2020-03-11 14:46:00 Test Item Value Reference Range Interpretation Comments SARS-COV2/RT-PCR (test Negative Not Detected, Negative, code = 2123530) See external report for linked test SARS-COV-[address] [facility] (test code = 3032191) Negative result for this test determines that [...] 564(g) of the Act.Fact Sheet for Healthcare Providers:https://www.[place]/sites/default/files/product/documents/Fact_Shee k_GF_Etqhyvdjx_Ubmn_PXPY-PmZ-7.pdfFact Sheet for Healthcare Patients:https://www.[place]/sites/default/files/product/ documents/Uunk_Owzbh_Jfeqqrgd_Oluh_NBZP-VqB-0.pdfPerforming Laboratory:[facility], [place] [address]POEO-OHDITFG METER 2020-03-11 12:29:00 Test Item Value Reference Range Interpretation Comments POC-GLUCOSE METER 117 mg/dL 70-110 H : TESTED A T [facility] 6720 (BEAKER) (test code = [facility], 1538) 09423: Slot Floor Person/Techni benjamin ID = [id number] for RA MOS, BONI [id number] 06:39:00 Test Item Value Reference Range Interpretation Comments MAGNESIUM (BEAKER) 1.8 mg/dL 1.6-2.6 Specimen slightly (test code = 627) hemolyzed Slot Floor Person ID - DOLLYAYA QJIZFYUKDDP0104-26-25 06:39:00 Test Item Value Reference Range Interpretation Comments PHOSPHORUS (BEAKER) 2.1 mg/dL 2.3-4.7 L Specimen slightly (test code = 604) hemolyzed Slot Floor Person ID - DOLLYAYA LCOMPREHENSIVE METABOLIC [id number] 06:39:00 Test Item Value Reference Range Interpretation [...] S NOT APPLICABLE FOR DIALYSIS PATIEN TS. Slot Floor Person ID - PIAYA LSpecimen slightly ictericCBC W/PLT COUNT & AUTO [id number] 05:56:00 Test Item Value Reference Range Interpretation [...] PERCENT (BEAKER) (test code = 2801) POCT-GLUCOSE [id number] 05:51:00 Test Item Value Reference Range Interpretation Comments POC-GLUCOSE METER 114 mg/dL 70-110 H : TESTED A T [facility] 6720 (BEAKER) (test code = [facility], 1538) 22386: Slot Floor Person/Techni benjamin ID = [id number] for ELIZABETH REYESA Rapid drug screen, [id number] 04:12:00 Test Item Value Reference Range Interpretation Comments Barbiturate Screen Negative Negative (test code = 85238-1) Benzodiazepine Screen Negative Negative (test code = 16566-0) Cocaine (Metab.) Negative Negative Screen (test code = 3397-7) Methadone Screen (test Negative Negative code = 26754-7) Opiate Screen (test Negative Negative code = 04261-8) Cannabinoid Screen Negative Negative (test code = 94606-6) Amph/Methamph Screen Negative Negative (test code = 51060-2) Phencyclidine Screen Negative Negative (test code = 94655-3) pH, UA (test code = 6.0 5.0-8.0 5803-2) MICHAEL (test code = MICHAEL) DRUG CUTOFF CONC.Cocaine 300 ng/mL Cannabinoid 50 ng/mLBenzodiazepine 200 ng/mLBarbiturate 200 ng/mLPhencyclidine 25 ng/mLOpiate 300 ng/mLMethadone 300 ng/mLAmphetamine/ 1000 ng/mL Methamphetamine This assay provides an unconfirmed qualitative test result for the clinical management of patients in emergency situations. Chain of custody not maintained. Some tnts-lun-zivtqcz medications, as well as adulterants, may cause inaccurate results. Clinical correlation should be applied. A more comprehensive drug screen or confirmation of a detected drug may be performed upon request.Slot Floor Person ID - WIN M Lab Interpretation Normal (test code = 97231-8) [facility] HospitalRAPID DRUG SCREEN, [id number] 04:12:00 Test Item Value Reference Range Interpretation [...] situations. Chain of custody not maintained. Some fogt-pcd-cbmqfuk medications, as well as adulterants, may cause inaccurate results. Clinical correlation should be applied. A more comprehensivedrug screen or confirmation of a detected drug may be performed upon request.Slot Floor Person ID - WIN MUrinalysis w/Microscopic + Reflex to [id number] 04:06:00 Test Item Value Reference Range Interpretation Comments Color, UA (test code Yellow = 5778-6) Clarity, UA (test Clear code = 5767-9) Specific [place], UA 1.018 1.001-1.035 (test code = 5811-5) pH, UA (test code = 6.0 5.0-8.0 5803-2) Protein, UA (test Negative Negative code = 23632-5) Glucose, UA (test Negative Negative code = 365) Ketones, UA (test 10 mg/dL Negative A code = 2514-8) Bilirubin, UA (test Negative Negative code = 44159-5) Blood, UA (test code Negative Negative = 41060-8) Nitrite, UA (test Negative Negative code = 5802-4) Leukocytes, UA (test Negative Negative code = 5799-2) Urobilinogen, UA 0.2 mg/dL 0.2-1 (test code = 76931-5) RBC, UA (test code = 0 See_Comment [Autom ated 40235-6) message] The system which generated this result [...] 1 See_Comment [Automate d (test code = 96574-0) messag e] The system which generated this result transmit enrique reference range : /LPF. The reference range was not used to interpret this result as normal/abnormal . Amorphous Crystals Rare (test code = 71634-3) Specimen Source (test code = 2795) MICHAEL (test code = MICHAEL) Slot Floor Person ID - [auto]Slot Floor Person ID - tech Lab Interpretation Abnormal (test code = 85979-7) [facility]UR[facility]/ REFLEX URINE [id number] 04:06:00 Test Item Value Reference Range Interpretation [...] = 1584) SOURCE(BEAKER) (test code = 2795) Slot Floor Person ID - [auto]Slot Floor Person ID - techOsmolality, [id number] 04:02:00 Test Item Value Reference Range Interpretation Comments Osmolality, Ur (test code 630 See_Comment [ Automated message] = 2695-5) The system [employer]outApp generated this result transmitted ref erence range: 50-1,200 mOsm/kg mOsm/kg . The reference range was not used to int erpret this result as normal/abnormal . Lab Interpretation (test Normal code = 34769-9) [facility] HospitalOSMOLALITY, [id number] 04:02:00 Test Item Value Reference Range Interpretation Comments OSMOLALITY URINE (BEAKER) (test 630 mOsm/kg 50-1,200 mOsm/kg code = 614) Creatinine, random [id number] 03:18:00 Test Item Value Reference Range Interpretation Comments Creatinine, Ur 47.2 mg/dL (test code = 2161-8) MICHAEL (test code = Reference Range: No MICHAEL) NormalsOperator ID - WIN [facility] Hospitalodium, random [id number] 03:18:00 Test Item Value Reference Range Interpretation Comments Sodium Urine (test 91 meq/L code = 2955-3) MICHAEL (test code = Reference Range: No MICHAEL) NormalsOperator ID - WIN [facility] HospitalU[facility] Nitrogen, random [id number] 03:18:00 Test Item Value Reference Range Interpretation Comments Urea Nitrogen, Ur 798 mg/dL (test code = 3095-7) MICHAEL (test code = Reference Range: No MICHAEL) NormalsOperator ID - WIN [facility] HospitalCREATININE, RANDOM [id number] 03:18:00 Test Item Value Reference Range Interpretation Comments CREATININE URINE (BEAKER) (test 47.2 mg/dL code = 375) Reference Range: No NormalsOperator ID - WIN MSODIUM, RANDOM [id number] 03:18:00 Test Item Value Reference Range Interpretation Comments SODIUM URINE (BEAKER) (test code = 91 meq/L 243) Reference Range: No NormalsOperator ID - WIN MUREA NITROGEN, RANDOM URINE 2020-03-11 03:18:00 Test Item Value Reference Range Interpretation Comments UREA NITROGEN URINE (BEAKER) (test 798 mg/dL code = 538) Reference Range: No NormalsOperator ID - WIN MPOCT-GLUCOSE [id number] 01:01:00 Test Item Value Reference Range Interpretation Comments POC-GLUCOSE METER 114 mg/dL 70-110 H : TESTED A T [facility] 6720 (BEAKER) (test code = [facility], 1538) 18099: Slot Floor Person/Techni benjamin ID = [id number] for TRAVON REYES Lactic acid, [id number] 21:31:00 Test Item Value Reference Range Interpretation Comments Lactate, Venous (test 1.31 mmol/L 0.5-2.2 Specim en code = 2872) slightly hemolyzed MICHAEL (test code = MICHAEL) Slot Floor Person ID - DBSpecimen slightly icteric Lab Interpretation Normal (test code = 66891-3) [facility] HospitalLACTIC ACID, [id number] 21:31:00 Test Item Value Reference Range Interpretation Comments LACTATE BLOOD VENOUS 1.31 mmol/L 0.50-2.20 Specime n slightly (2) (BEAKER) (test hemolyzed code = 2872) Slot Floor Person ID - DBSpecimen slightly ictericPOCT-GLUCOSE [id number] 18:10:00 Test Item Value Reference Range Interpretation Comments POC-GLUCOSE METER 114 mg/dL 70-110 H : TESTED A T [facility] 6720 (BEAKER) (test code = [facility], 1538) 43348: Slot Floor Person/Techni benjamin ID = [id number] for SANTOS JACOBSON DD T4, [id number] 17:23:00 Test Item Value Reference Range Interpretation Comments Free T4 (test code = 3024-7) 1.00 ng/dL 0.7-1.48 MICHAEL (test code = MICHAEL) Slot Floor Person ID - DB Lab Interpretation (test Normal code = 53148-5) [facility] HospitalHepatitis panel, [id number] 17:23:00 Test Item Value Reference Range Interpretation Comments Hep A IgM (test code = Nonreactive Nonreactive 86129-6) Hep B C IgM (test code = Nonreactive Nonreactive 70847-2) Hepatitis C Ab (test code = Nonreactive Nonreactive 75365-5) HBsAg Screen (test code = Nonreactive Nonreactive 5195-3) MICHAEL (test code = MICHAEL) Slot Floor Person ID - DB Lab Interpretation (test Normal code = 90480-4) [facility] HospitalT4, [id number] 17:23:00 Test Item Value Reference Range Interpretation Comments FREE T4 (BEAKER) (test code = 655) 1.00 ng/dL 0.70-1.48 Slot Floor Person ID - DBHEPATITIS PANEL, [id number] 17:23:00 Test Item Value Reference Range Interpretation Comments HEPATITIS A IGM ANTIBODY (BEAKER) Nonreactive Nonreactive (test code = 498) HEPATITIS B CORE IGM ANTIBODY Nonreactive Nonreactive (BEAKER) (test code = 645) HEPATITIS C ANTIBODY (BEAKER) Nonreactive Nonreactive (test code = 367) HEPATITIS B SURFACE ANTIGEN (2) Nonreactive Nonreactive (BEAKER) (test code = 2585) Slot Floor Person ID - DBTSH/Free T4 If [id number] 15:51:00 Test Item Value Reference Range Interpretation Comments TSH (test code = 0.299 See_Comment L [Automated 53594-4) message] The system which generated this result transmit enrique reference range : 0.350 - 4.940 uIU/mL. The reference range was not used to interpret this result as normal/abnormal . MICHAEL (test code = MICHAEL) Slot Floor Person ID - ALIDA B Lab Interpretation Abnormal (test code = 10716-4) [facility] HospitalTSH/FREE T4 IF [id number] 15:51:00 Test Item Value Reference Range Interpretation Comments THYROID STIMULATING HORMONE 0.299 uIU/mL 0.350-4.940 L (BEAKER) (test code = 772) Slot Floor Person ID - ALIDA YEghcoleo7968-33-49 15:33:00 Test Item Value Reference Range Interpretation Comments Cortisol, Total (test code 58.2 ug/dL 3.7-19.4 H = 2755) MICHAEL (test code = MICHAEL) Slot Floor Person ID - JOHN C Lab Interpretation (test Abnormal code = 64691-7) [facility] HospitalCORTISOL2020-08-28 15:33:00 Test Item Value Reference Range Interpretation Comments CORTISOL, TOTAL (BEAKER) (test 58.2 ug/dL 3.7-19.4 H code = 2755) Slot Floor Person ID - JOHN BKyawxjfmqwvft2835-54-54 15:07:00 Test Item Value Reference Range Interpretation Comments Procalcitonin (test code = 1.40 ng/mL <0.05 H 27607-4) MICHAEL (test code = MICHAEL) SEPSIS RISK (ng/mL)Low: 0.05-0.50Intermedi ate: 0.51-2.00High: >=2.01 Lab Interpretation (test Abnormal code = 71023-2) [facility] HospitalPROCALCITONIN2020-08-28 15:07:00 Test Item Value Reference Range Interpretation Comments PROCALCITONIN (BEAKER) (test code 1.40 ng/mL <0.05 H = 3036) SEPSIS RISK (ng/mL)Low: 0.05-0.50Intermediate: 0.51-2.00High: >=2.01B-type Natriuretic Factor (BNP)2020-03-10 14:52:00 Test Item Value Reference Range Interpretation Comments BNP (test code = 61197-2) 154 pg/mL 0-100 H MICHAEL (test code = MICHAEL) Slot Floor Person ID - JOHN C Lab Interpretation (test Abnormal code = 51076-9) [facility] HospitalTroponin [id number] 14:52:00 Test Item Value Reference Range Interpretation Comments Troponin I (test code = 0.04 ng/mL 0-0.03 H 75176-9) MICHAEL (test code = MICHAEL) Troponin I [...] C Lab Interpretation (test Abnormal code = 43889-1) [facility] HospitalB-TYPE NATRIURETIC FACTOR (BNP)2020-03-10 14:52:00 Test Item Value Reference Range Interpretation Comments B-TYPE NATRIURETIC PEPTIDE (BEAKER) 154 pg/mL 0-100 H (test code = 700) Slot Floor Person ID - JOHN CTROPONIN [id number] 14:52:00 Test Item Value Reference Range Interpretation [...] failure, acidosis, acute neurological disease, and persistent tachyarrhythmia.Slot Floor Person ID - JOHN COsmolality, serum 2020-03-10 14:47:00 Test Item Value Reference Range Interpretation Comments Osmolality Serum (test 287 See_Comment [Aut omated message] code = 2692-2) The system [employer]4Me generated this result transmitted ref erence range: 275 - 29 5 mOsm/kg. The re ference range was not u sed to interpret this result as normal/abnor mal. Lab Interpretation (test Normal code = 79548-7) [facility] HospitalOSMOLALITY, [id number] 14:47:00 Test Item Value Reference Range Interpretation Comments OSMOLALITY, SERUM (BEAKER) (test 287 mOsm/kg 275-295 code = 615) [id number] 14:46:00 Test Item Value Reference Range Interpretation Comments Amylase (test code = 397 U/L 25-125 H 1798-8) MICHAEL (test code = MICHAEL) Slot Floor Person ID - JOHN Josemanueleufemiaimen slightly icteric Lab Interpretation (test Abnormal code = 39514-8) [facility] HospitalLipase2020-08-28 14:46:00 Test Item Value Reference Range Interpretation Comments Lipase (test code = 689 U/L 8-78 H 3040-3) MICHAEL (test code = MICHAEL) Slot Floor Person ID - JOHN CSpecimen slightly icteric Lab Interpretation (test Abnormal code = 85357-5) [facility] HospitalTriglycerides2020-08-28 14:46:00 Test Item Value Reference Range Interpretation Comments Triglycerides (test 220 mg/dL code = 2571-8) MICHAEL (test code = MICHAEL) TRIGLYCERIDE REFERENCE RANGELow Risk <150Borderline Risk 150-199High Risk 200-499Very High Risk >=500Operator ID - JOHN CSpecimen slightly icteric [facility] HospitalMAGNESIUM2020-08-28 14:46:00 Test Item Value Reference Range Interpretation Comments MAGNESIUM (BEAKER) (test code = 1.3 mg/dL 1.6-2.6 L 627) Slot Floor Person ID - JOHN [id number] 14:46:00 Test Item Value Reference Range Interpretation Comments PHOSPHORUS (BEAKER) (test code = 1.8 mg/dL 2.3-4.7 L 604) Slot Floor Person ID - JOHN [id number] 14:46:00 Test Item Value Reference Range Interpretation Comments TRIGLYCERIDES (BEAKER) (test code = 220 mg/dL 540) TRIGLYCERIDE REFERENCE RANGELow Risk <150Borderline Risk 150-199High Risk 200-499Very High Risk>=500Operator ID - JUL CSpecimen slightly icteric COMPREHENSIVE METABOLIC [id number] 14:46:00 Test Item Value Reference Range Interpretation [...] S NOT APPLICABLE FOR DIALYSIS PATIEN TS. Slot Floor Person ID - JUL CSpecimen slightly [id number] 14:46:00 Test Item Value Reference Range Interpretation Comments AMYLASE (BEAKER) (test code = 349) 397 U/L 25-125 H Slot Floor Person ID - JUL CSpecimen slightly vtooyjkRLAEWG1227-83-69 14:46:00 Test Item Value Reference Range Interpretation Comments LIPASE (BEAKER) (test code = 749) 689 U/L 8-78 H Slot Floor Person ID - JOHN CSpecimen slightly sgvratnOyrsmffnjf4655-80-98 14:41:00 Test Item Value Reference Range Interpretation Comments Fibrinogen (test code = 3255-7) 115 mg/dl 225-434 L Lab Interpretation (test code = Abnormal 53031-8) [facility] HospitalFIBRINOGEN2020-08-28 14:41:00 Test Item Value Reference Range Interpretation Comments FIBRINOGEN LEVEL (BEAKER) (test 115 mg/dl 225-434 L code = 658) [id number] 14:38:00 Test Item Value Reference Range Interpretation Comments Ammonia (test code = 40 See_Comment Specime n slightly 79296-8) hemolyzed [Automated message] The system which generated this result transmit enrique reference range : 18 - 72 mol/L . The reference range was not u sed to interpret th is result as normal/abnormal . MICHAEL (test code = MICHAEL) Slot Floor Person ID - JOHN C Lab Interpretation Normal (test code = 09124-8) [facility] HospitalAMMONIA2020-08-28 14:38:00 Test Item Value Reference Range Interpretation Comments AMMONIA (BEAKER) 40 mol/L 18-72 Specimen sl ightly (test code = 348) hemolyzed Slot Floor Person ID - JOHN CLACTIC ACID, [id number] 14:37:00 Test Item Value Reference Range Interpretation Comments LACTATE BLOOD VENOUS (2) (BEAKER) 2.61 mmol/L 0.50-2.20 H (test code = 2872) Slot Floor Person ID - JOHN CSpecimen slightly ictericPT/[id number] 14:36:00 Test Item Value Reference Interpretation Comments Range Protime (test code = 18.0 See_Comment H [Autom ated 5902-2) message] The system which generated this result transmitted reference range : 11.9 - 14.2 seconds. The reference range was not used to interpret this result as normal/abnormal . INR (test code = 1.53 See_Comment [Automated 8071-6) message] The system which generated this result transmitted reference range : <=5.90. The reference range was not used to interpret this result as normal/abnormal . PTT (test code = 32.1 See_Comment [Automated 56445-8) message] The system which generated this result [...] valves. Lab Interpretation Abnormal (test code = 93349-2) [facility] HospitalPT/VFQO9111-06-04 14:36:00 Test Item Value Reference Range Interpretation [...] mechanical heart valves.CBC W/PLT COUNT & AUTO [id number] 14:33:00 Test Item Value Reference Range Interpretation [...] (BEAKER) (test code = 2801) Blood gas, [id number] 14:30:00 Test Item Value Reference Range Interpretation Comments pH, Rito (test code = 7.33 7.32-7.42 2746-6) pCO2, Rito (test code = 44 See_Comment [Aut omated 75) message] The sy stem which generated this result transmitted reference range : 41 - 51 mmHg. The reference range was not used to interpret this result as normal/abnormal . pO2, Rito (test code = 30 See_Comment [Auto mated 8279-2) message] The sy stem which generated this result transmitted reference range : 25 - 40 mmHg. The reference range was not used to interpret this result as normal/abnormal . O2 Sat, Rito (test code 52.3 % 40-70 = 2711-0) HCO3, Rito (test code = 23 mmol/L 21-29 23291-7) Base Excess, Rito (test -3.3 mmol/L -2-3 L code = 1927-3) Patient Temperature 37.0 C (test code = 8310-5) FIO2 (test code = 1819) 21 % Lab Interpretation Abnormal (test code = 55429-9) [facility] HospitalCalcium, [id number] 14:30:00 Test Item Value Reference Range Interpretation Comments Calcium, Ion (test code = 1993-) 1.05 mmol/L 1.12-1.27 L pH, Blood (test code = 40870-6) 7.33 Lab Interpretation (test code = Abnormal 03492-7) [facility] HospitalCALCIUM, [id number] 14:30:00 Test Item Value Reference Range Interpretation Comments CALCIUM IONIZED (BEAKER) (test 1.05 mmol/L 1.12-1.27 L code = 698) PH, BLOOD (BEAKER) (test code = 7.33 1810) BLOOD GAS, [id number] 14:30:00 Test Item Value Reference Range Interpretation [...]
[2020-11-27] MEDS ORDERED: FOLIC ACID 1 MG, THIAMINE HCL 100 MG, MULTIVITAMINS INJ 10 ML in NA CHLORIDE 0.9% 1,000 ML IV ONE (12:00)
[2020-11-27] MEDS ORDERED: D5NS KCL 20MEQ 1,000 ML IV SCH (12:00)
[2020-11-27 13:28] LABS: Absolute Lymphocytes (CBC) 0.6 K/uL (0.7-4.9); Basophils % 0.6 % (0-1.3); Hematocrit 29.1 % (36.0-45.0); Lymphocytes % 10.7 % (15.3-44.8); MPV 9.1 fL (7.6-11.3); RBC Red Blood Cell Count 2.71 M/uL (3.86-4.86)
[2020-11-27 13:45] LABS: Albumin 2.5 g/dL (3.4-5.0); Protein, Total 5.4 g/dL (6.4-8.2)
[2020-11-27 13:49] LABS: Bilirubin Total 6.2 mg/dL (0.2-1.0)
[2020-11-27] MEDS ORDERED: ONDANSETRON 4 MG/2 ML VIAL ONE (13:52)
[2020-11-27] MEDS ORDERED: PROMETHAZINE INJ 25 MG/ML AMP ONE (14:16)
--- NOTE | 2020-11-27 14:21 | RAD REPORT ---
EXAM DESCRIPTION: US - Abdomen Exam Limited - 11/27/2020 2:15 pm CLINICAL HISTORY: RUQ abd pain COMPARISON: Abdomen Exam Limited dated 05/29/2020 FINDINGS: The gallbladder demonstrates multiple shadowing gallstones. No pericholecystic fluid or ga llbladder wall thickening. The common bile duct is normal measuring 4 mm. The liver demonstrates no findings of intrahepatic biliary dilatation. IMPRESSION: Cholelithiasis.
[2020-11-27] MEDS ORDERED: LORazepam 2 MG/ML VIAL ONE ×2 (14:50→17:06)
--- NOTE | 2020-11-27 15:06 | ER ---
Nurse's Notes [facility] Name: Ciara Fatih Age: 70 yrs Sex: Female : 1950 Arrival Date: 11/27/2020 Time: 10:47 Bed 27 Private MD: Diagnosis: Other cirrhosis of liver;Hypo-osmolality and hyponatremia;Acute kidney failure;Dehydration Presentation: 11/27 11:05 Chief complaint: EMS states: Called in for vomiting, diarrhea and weakness x 7 days. ca1 Frequent complain of pt 2x a month. HX of liver issues. VS BP 104/69, HR 111, RR 16, SPO2 98% RA. Coronavirus screen: Client denies travel out of the [place] in the last 14 days. diarrhea, nausea, vomiting. Client presents with at least one sign or symptom that may indicate coronavirus-19. Standard/surgical mask placed on the client. Provider contacted for isolation considerations. Ebola Screen: Patient negative for fever greater than or equal to 101.5 degrees Fahrenheit, and additional compatible Ebola Virus Disease symptoms Patient denies exposure to infectious person. Patient denies travel to an Ebola-affected area in the 21 days before illness onset. No symptoms or risks identified at this time. Initial Sepsis Screen: Does the patient meet any 2 criteria? Mean Arterial Pressure (MAP) < 65. HR > 90 bpm. Yes Does the patient have a suspected source of infection? No. Patient's initial sepsis screen is negative. Risk Assessment: Do you want to hurt yourself or someone else? Patient reports no desire to harm self or others. Onset of symptoms was November 27, 2020. 11:05 Method Of Arrival: EMS: [facility] ca1 11:05 Acuity: LINA 2 ca1 Triage Assessment: 11:10 The onset of the patients symptoms was November 20, 2020 at 06:00. General: Appears bp distressed, uncomfortable, Behavior is cooperative, appropriate for age, anxious. Pain: Denies pain. EENT: No deficits noted. Neuro: Reports weakness GENERALIZED. Cardiovascular: No deficits noted. Respiratory: No deficits noted. GI: No signs and/or symptoms were reported involving the gastrointestinal system. : No signs and/or symptoms were reported regarding the genitourinary system. Derm: No deficits noted. Musculoskeletal: No deficits noted. Historical: - Allergies: 11:11 [place]; ca1 - Home Meds: 11:11 Constulose 10 gram/15 mL Oral soln 15 mL once daily [Active]; folic acid 1 mg Oral tab ca1 1 tab once daily [Active]; Multiple Vitamins Oral tab [Active]; Protonix 20 mg Oral TbEC 2 tabs once daily [Active]; Vitamin B-12 1,000 mcg Oral tab [Active]; zinc sulfate 220 (50) mg Oral cap [Active]; Xifaxan 550 mg Oral tab 2 times per day [Active]; Lasix 20 mg Oral tab 1 tab once daily [Active]; magnesium oxide 250 mg Oral tab [Active]; - PMHx: 11:11 Alcoholism; GERD; UTI; ca1 - Immunization history:: Client reports receiving the 2nd dose of the Covid vaccine, Client reports receiving the 1st dose of the Covid vaccine, Pneumococcal vaccine is up to date, Flu vaccine is up to date. - Social history:: Smoking status: Patient/guardian denies using tobacco, the patient reports quitting approximately 20 years ago, Patient/guardian denies using alcohol, street drugs, The patient lives with family. - Family history:: not pertinent. Screenin:41 Abuse screen: Denies threats or abuse. Denies injuries from another. Nutritional bp screening: No deficits noted. Tuberculosis screening: No symptoms or risk factors identified. Fall Risk None identified. Assessment: 11:10 VAN Scoring: Arm Drift: Patients demonstrates NO arm weakness. Patient is VAN Negative. bp The patient has not been NPO before screening. The patient is alert, and able to follow commands. The patient does not exhibit slurred or garbled speech. The patient is not exhibiting difficulty speaking. The patient does not exhibit difficulty understanding words. The patient is able to swallow own secretions with no drooling or need for suction. Patient tolerated one teaspoon of water. No drooling, immediate coughing, gurgling, or clearing of the throat was noted. The patient tolerated 90mL of water. No drooling, immediate coughing, gurgling, or clearing of the throat was noted. The patient passed the bedside swallow screening. Oral medications may be given as ordered. Contact Physician for further diet orders. Provider notified of bedside swallow screening results: Troy Chavez MD. T-PA (Activase) Screening: Contraindications: Rapidly improving condition or minor deficit: Yes. 12:00 Reassessment: No changes from previously documented assessment. Patient and/or family bp updated on plan of care and expected duration. Pain level reassessed. 14:00 Reassessment: No changes from previously documented assessment. Patient and/or family bp updated on plan of care and expected duration. Pain level reassessed. PROVIDER AT B/S FOR RE-EVAL. 15:00 Reassessment: Artie Faith cell- [phone]. tr6 15:00 Reassessment: No changes from previously documented assessment. Patient and/or family bp updated on plan of care and expected duration. Pain level reassessed. ADMIT INITIATED. 16:00 General: Appears distressed, uncomfortable, Behavior is agitated, anxious, bp uncooperative. Vital Signs: 11:05 BP 89 / 57; Pulse 115; Resp 19 S; Temp 98(TE); Pulse Ox 99% ; Weight 56.7 kg (R); ca1 Height 5 ft. 4 in. (162.56 cm) (R); Pain 0/10; 12:00 BP 100 / 52; Pulse 98; Resp 17; Pulse Ox 100% ; bp 13:00 BP 103 / 64; Pulse 102; Resp 17; Pulse Ox 99% ; bp 14:00 BP 108 / 65; Pulse 116; Resp 20; Pulse Ox 98% ; bp 15:00 BP 98 / 41; Pulse 118; Resp 16; Pulse Ox 99% ; bp 16:00 BP 100 / 46; Pulse 108; Resp 17; Pulse Ox 98% ; bp 16:53 BP 88 / 60; Pulse 107; Resp 15; Pulse Ox 97% ; bp 11:05 Body Mass Index 21.46 (56.70 kg, 162.56 cm) ca1 NIH Stroke Scale Scores: 11:10 NIHSS Score: 0 bp ED Course: 10:47 Patient arrived in ED. ds1 11:09 Triage completed. ca1 11:11 Armando Florian, RN is Primary Nurse. bp 11:11 Arm band placed on right wrist. ca1 11:13 Troy Chavez MD is Attending Physician. ma2 11:41 Patient has correct armband on for positive identification. Bed in low position. Call bp light in reach. Side rails up X2. 12:05 AMMONIA Sent. sv 13:00 Inserted RUE 20 G 8CM MIDLINE. bp 14:15 US Abdomen Limited In Process Unspecified. EDMS 15:05 Vick Melvin MD is Hospitalizing Provider. ma2 19:14 Primary Nurse role handed off by Armando Florian RN mw2 Administered Medications: 13:00 Drug: Banana Bag - (NS 0.9% 1000 ml, foLIC Acid 1 mg, Thiamine 100 mg, Multivitamin 1 bp amp) Route: IV; Rate: calculated rate; Site: right upper arm; 13:00 Drug: Dextrose 5 % in Normal Saline with KCl 20 mEq/L 1000 ml Route: IV; Rate: 200 bp ml/hr; Site: right upper arm; 14:38 Drug: Ativan (LORazepam) 1 mg Route: IVP; Site: right upper arm; bp 16:45 Drug: Ativan (LORazepam) 1 mg Route: IVP; Site: right upper arm; bp Outcome: 15:05 Decision to Hospitalize by Provider. ma2 11/28 02:28 Patient left the ED. ds4 NIH Stroke Scale - NIH Stroke Score Date: 11/27/2020 Time: 11:10 Total Score = 0 1a. Level of Consciousness (LOC) - 0(Alert) 1b. Level of Consciousness (LOC) (Year \T\ Age) - 0(Both) 1c. LOC Commands (Open \T\ Closes Eyes/Reel Stripper) - 0(Both) 2. Best Gaze (Lateral Gaze Paresis) - 0(Normal) 3. Visual Field Loss - 0(No visual loss) 4. Facial Palsy - 0(Normal) 5a. Left Arm: Motor (10-second hold) - 0(No drift) 5b. Right Arm: Motor (10-second hold) - 0(No drift) 6a. Left Leg: Motor (5-second hold - always test supine) - 0(No drift) 6b. Right Leg: Motor (5-second hold - always test supine) - 0(No drift) 7. Limb Ataxia (finger/nose \T\ heel/dawson - test with eyes open) - 0(Absent) 8. Sensory Loss (pinprick arms/legs/face) - 0(Normal) 9. Best Language: Aphasia (description/naming/reading) - 0(No aphasia) 10. Dysarthria (speech clarity - read or repeat words) - 0(Normal) 11. Extinction and Inattention (visual/tactile/auditory/spatial/personal) - 0(No abnormality) Initials: bp Signatures: Dispatcher [employer] Kari Beatty RN RN sv Sanford, Demi ds1 Alejandro Mojica ds4 Armando Florian RN RN bp Alzahri, Mohammad, MD MD ma2 Jorge A Knight mw2 Sonia Ocasio RN RN ca1 Talia Fernandez RN RN tr6 Corrections: (The following items were deleted from the chart) 11/27 11:11 11:05 BP 89 / 75; Pulse 115bpm; Resp 19bpm; Spontaneous; Pulse Ox 99%; Temp 98F ca1 Temporal; 56.7 kg Reported; Height 5 ft. 4 in. Reported; BMI: 21.4; Pain 0/10; ca1
--- NOTE | 2020-11-27 15:06 | EDPHYS ---
Physician Documentation [facility] Name: Ciara Faith Age: 70 yrs Sex: Female : 1950 Arrival Date: 11/27/2020 Time: 10:47 Bed 27 Private MD: ED Physician Troy Chavez HPI: 11/27 11:53 This 70 yrs old Female presents to ER via EMS with complaints of Weakness. ma2 11:53 Onset: The symptoms/episode began/occurred gradually, 3 week(s) ago. Associated signs ma2 and symptoms: Pertinent negatives: fever, nausea, neck stiffness, paresthesias. Severity of symptoms: At their worst the symptoms were very mild in the emergency department the symptoms are unchanged. The patient has experienced similar episodes in the past. Historical: - Allergies: 11:11 [place]; ca1 - Home Meds: :11 Constulose 10 gram/15 mL Oral soln 15 mL once daily [Active]; folic acid 1 mg Oral tab ca1 1 tab once daily [Active]; Multiple Vitamins Oral tab [Active]; Protonix 20 mg Oral TbEC 2 tabs once daily [Active]; Vitamin B-12 1,000 mcg Oral tab [Active]; zinc sulfate 220 (50) mg Oral cap [Active]; Xifaxan 550 mg Oral tab 2 times per day [Active]; Lasix 20 mg Oral tab 1 tab once daily [Active]; magnesium oxide 250 mg Oral tab [Active]; - PMHx: 11:11 Alcoholism; GERD; UTI; ca1 - Immunization history:: Client reports receiving the 2nd dose of the Covid vaccine, Client reports receiving the 1st dose of the Covid vaccine, Pneumococcal vaccine is up to date, Flu vaccine is up to date. - Social history:: Smoking status: Patient/guardian denies using tobacco, the patient reports quitting approximately 20 years ago, Patient/guardian denies using alcohol, street drugs, The patient lives with family. - Family history:: not pertinent. ROS: 11:53 Constitutional: Negative for fever, chills, and weight loss. ma2 11:53 All other systems are negative. Exam: 11:53 Constitutional: This is a well developed, well nourished patient who is awake, alert, ma2 and in no acute distress. Head/Face: Normocephalic, atraumatic. Eyes: Pupils equal round and reactive to light, extra-ocular motions intact. Lids and lashes normal. Conjunctiva and sclera are non-icteric and not injected. Cornea within normal limits. Periorbital areas with no swelling, redness, or edema. ENT: Nares patent. No nasal discharge, no septal abnormalities noted. Tympanic membranes are normal and external auditory canals are clear. Oropharynx with no redness, swelling, or masses, exudates, or evidence of obstruction, uvula midline. Mucous membranes moist. Neck: Trachea midline, no thyromegaly or masses palpated, and no cervical lymphadenopathy. Supple, full range of motion without nuchal rigidity, or vertebral point tenderness. No Meningismus. Chest/axilla: Normal chest wall appearance and motion. Nontender with no deformity. No lesions are appreciated. Cardiovascular: Regular rate and rhythm with a normal S1 and S2. No gallops, murmurs, or rubs. Normal PMI, no JVD. No pulse deficits. Respiratory: Lungs have equal breath sounds bilaterally, clear to auscultation and percussion. No rales, rhonchi or wheezes noted. No increased work of breathing, no retractions or nasal flaring. Abdomen/GI: Soft, non-tender, with normal bowel sounds. No distension or tympany. No guarding or rebound. No evidence of tenderness throughout. Skin: Warm, dry with normal turgor. Normal color with no rashes, no lesions, and no evidence of cellulitis. MS/ Extremity: Pulses equal, no cyanosis. Neurovascular intact. Full, normal range of motion. Neuro: Awake and alert, GCS 15, oriented to person, place, time, and situation. Cranial nerves II-XII grossly intact. Motor strength 5/5 in all extremities. Sensory grossly intact. Cerebellar exam normal. Normal gait. Vital Signs: 11:05 BP 89 / 57; Pulse 115; Resp 19 S; Temp 98(TE); Pulse Ox 99% ; Weight 56.7 kg (R); ca1 Height 5 ft. 4 in. (162.56 cm) (R); Pain 0/10; 12:00 BP 100 / 52; Pulse 98; Resp 17; Pulse Ox 100% ; bp 13:00 BP 103 / 64; Pulse 102; Resp 17; Pulse Ox 99% ; bp 14:00 BP 108 / 65; Pulse 116; Resp 20; Pulse Ox 98% ; bp 15:00 BP 98 / 41; Pulse 118; Resp 16; Pulse Ox 99% ; bp 16:00 BP 100 / 46; Pulse 108; Resp 17; Pulse Ox 98% ; bp 16:53 BP 88 / 60; Pulse 107; Resp 15; Pulse Ox 97% ; bp 11:05 Body Mass Index 21.46 (56.70 kg, 162.56 cm) ca1 NIH Stroke Scale Scores: 11:10 NIHSS Score: 0 bp MDM: 11:40 Patient medically screened. [facility] 11:53 Data reviewed: vital signs, nurses notes. Counseling: I had a detailed discussion with [facility] the patient and/or guardian regarding: the historical points, exam findings, and any diagnostic results supporting the discharge/admit diagnosis, the presence of at least one elevated blood pressure reading (>120/80) during this emergency department visit. Response to treatment: the patient's symptoms have markedly improved after treatment. 15:02 ED course: patient has severe dehydration and acute renal failure elevated liver [facility] enzymes in the setting of CLD . 11/27 11:42 Order name: AMMONIA [facility] 11/27 11:42 Order name: Basic Metabolic Panel; Complete Time: 13:59 [facility] 11/27 11:42 Order name: CBC with Diff [facility] 11/27 11:42 Order name: Hepatic Function; Complete Time: 13:59 [facility] 11/27 11:42 Order name: Lipase; Complete Time: 13:59 [facility] 11/27 11:42 Order name: Ammonia; Complete Time: 13:28 [facility] 11/27 14:01 Order name: US Abdomen Limited; Complete Time: 14:52 [facility] 11/27 15:24 Order name: CBC Smear Scan [facility] 11/27 16:57 Order name: Creatine Phosphokinase [facility] 11/27 16:57 Order name: Troponin I [facility] 11/27 16:59 Order name: SARS-COV-2 RT PCR [facility] 11/27 18:02 Order name: US [facility] 11/27 18:23 Order name: Sodium Level [facility] 11/27 11:42 Order name: IV Saline Lock; Complete Time: 13:05 [facility] 11/27 11:42 Order name: Labs collected and sent; Complete Time: 13:05 [facility] 11/27 12:51 Order name: Labs - recollect needed: recollect green top; Complete Time: 13:04 bd 11/27 16:57 Order name: Renal EDMS Administered Medications: 13:00 Drug: Banana Bag - (NS 0.9% 1000 ml, foLIC Acid 1 mg, Thiamine 100 mg, Multivitamin 1 bp amp) Route: IV; Rate: calculated rate; Site: right upper arm; 13:00 Drug: Dextrose 5 % in Normal Saline with KCl 20 mEq/L 1000 ml Route: IV; Rate: 200 bp ml/hr; Site: right upper arm; 14:38 Drug: Ativan (LORazepam) 1 mg Route: IVP; Site: right upper arm; bp 16:45 Drug: Ativan (LORazepam) 1 mg Route: IVP; Site: right upper arm; bp Disposition: 11/27/20 15:05 Hospitalization ordered by Vick Melvin for Inpatient Admission. Preliminary diagnosis are Other cirrhosis of liver, Hypo-osmolality and hyponatremia, Acute kidney failure, Dehydration. - Bed requested for Telemetry/MedSurg (Inpatient). - Status is Inpatient Admission. ds4 - Condition is Stable. - Problem is new. - Symptoms are unchanged. NIH Stroke Scale - NIH Stroke Score Date: 11/27/2020 Time: 11:10 Total Score = 0 1a. Level of Consciousness (LOC) - 0(Alert) 1b. Level of Consciousness (LOC) (Year \T\ Age) - 0(Both) 1c. LOC Commands (Open \T\ Closes Eyes/[employer] Lead) - 0(Both) 2. Best Gaze (Lateral Gaze Paresis) - 0(Normal) 3. Visual Field Loss - 0(No visual loss) 4. Facial Palsy - 0(Normal) 5a. Left Arm: Motor (10-second hold) - 0(No drift) 5b. Right Arm: Motor (10-second hold) - 0(No drift) 6a. Left Leg: Motor (5-second hold - always test supine) - 0(No drift) 6b. Right Leg: Motor (5-second hold - always test supine) - 0(No drift) 7. Limb Ataxia (finger/nose \T\ heel/dawson - test with eyes open) - 0(Absent) 8. Sensory Loss (pinprick arms/legs/face) - 0(Normal) 9. Best Language: Aphasia (description/naming/reading) - 0(No aphasia) 10. Dysarthria (speech clarity - read or repeat words) - 0(Normal) 11. Extinction and Inattention (visual/tactile/auditory/spatial/personal) - 0(No abnormality) Initials: bp Signatures: Dispatcher [employer] EDMS Ramona Rodriguez bd Alejandro Mojica ds4 Kianna Chambers, RN RN cg Armando Florian, RN RN Troy Chavez MD MD il2 Soina Ocasio RN RN ca1 Corrections: (The following items were deleted from the chart) 16:12 15:24 CORONAVIRUS+MR.LAB.BRZ ordered. EDAZ EDMS 17:04 15:05 Hospitalization Ordered by Vick Melvin MD for Inpatient Admission. Preliminary diagnosis is Other cirrhosis of liver; Hypo-osmolality and hyponatremia; Acute kidney failure; Dehydration. Bed requested for Telemetry/MedSurg (Inpatient). Status is Inpatient Admission. Condition is Stable. Problem is new. Symptoms are unchanged. [facility] 22:20 17:04 11/27/2020 15:05 Hospitalization Ordered by Vick Melvin MD for cg Inpatient Admission. Preliminary diagnosis is Other cirrhosis of liver; Hypo-osmolality and hyponatremia; Acute kidney failure; Dehydration. Bed requested for [facility] ER HOLD. Status is Inpatient Admission. Condition is Stable. Problem is new. Symptoms are unchanged. bd 11/28 02:28 11/27 22:20 11/27/2020 15:05 Hospitalization Ordered by Vick Melvin MD for ds4 Inpatient Admission. Preliminary diagnosis is Other cirrhosis of liver; Hypo-osmolality and hyponatremia; Acute kidney failure; Dehydration. Bed requested for Telemetry/MedSurg (Inpatient). Status is Inpatient Admission. Condition is Stable. Problem is new. Symptoms are unchanged.
[2020-11-27 15:23] LABS: White Blood Cell Scan OK (OK)
[2020-11-27 15:24] LABS: Blood Morphology Comment NOTED (NOT SEEN); Platelet Estimate DECR; Poikilocytosis 2+
[2020-11-27] MEDS ORDERED: ACETAMINOPHEN 500 MG TAB PO PRN (16:53)
[2020-11-27] MEDS ORDERED: ONDANSETRON 4 MG/2 ML VIAL IV PRN (16:53)
[2020-11-27] MEDS ORDERED: HYDROCODONE/APAP 5/325 MG TAB PO PRN (16:55)
--- NOTE | 2020-11-27 16:58 | P.HP ---
Certification for Inpatient Patient admitted to: Observation With expected LOS: <2 Midnights Patient will require the following post-hospital care: None Practitioner: I am a practitioner with admitting privileges, knowledge of patient current condition, hospital course, and medical plan of care. Services: Services provided to patient in accordance with Admission requirements found in Title 42 Section 412.3 of the Code of Federal Regulations Patient History Date of Service: 11/27/20 Reason for admission: ARF History of Present Illness: Patient is a 70 year old female with a PMHx significant for fatty Liver, Alcohol abuse, GERD, Hx of recurrent UTI who presents with c\o generalized weakness that has been ongoing for the past 1 week. Patient reports associated signs and symptoms of nausea, vomiting and fatigue. Patient reported that she has not been able to keep any p.o. intake down. Patient denies any other signs and symptoms. Symptoms are aggravated or relieved by nothing. Patient decided to present to the hospital due to worsening symptoms. 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 She has 3 children. 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 She works as a tax filer. - Family History Mother -: Cancer Father -: Lung disease Notes: emphysema - Social History Alcohol use: Yes CD- Drugs: No Caffeine use: No Place of Residence: Home Review of Systems General: Weakness, Malaise Eyes: Unremarkable ENT: Unremarkable Respiratory: Unremarkable Cardiovascular: Unremarkable Gastrointestinal: Nausea, Vomiting Genitourinary: Unremarkable Musculoskeletal: Unremarkable Integumentary: Unremarkable Neurological: Weakness Lymphatics: Unremarkable Physical Examination - Physical Exam General: Alert, In no apparent distress, Oriented x3 HEENT: Normocephalic, PERRLA Neck: Supple, 2+ carotid pulse no bruit, No LAD, Without JVD or thyroid abnormality Respiratory: Clear to auscultation bilaterally, Normal air movement Cardiovascular: No edema, Regular rate/rhythm, Normal S1 S2 Capillary refill: <2 Seconds Gastrointestinal: Normal bowel sounds, No tenderness Musculoskeletal: No clubbing, No swelling, No tenderness Integumentary: No rashes, No significant lesion Neurological: Normal gait, Normal speech, Normal tone, Normal affect Lymphatics: No axilla or inguinal lymphadenopathy External genitalia: Deferred Rectal: Deferred - Studies Laboratory Data (last 24 hrs) 11/27/20 13:00: WBC 5.80 D, Hgb 10.1 L, Hct 29.1 L, Plt Count 119 L D 11/27/20 13:00: Sodium 125 L, Potassium 3.0 L, BUN 6 L, Creatinine 4.57 H D, Glucose 110 H, Total Bilirubin 6.2 H*, AST 77 H, ALT 17, Alkaline Phosphatase 162 H, Lipase 27 L Assessment and Plan - Plan --Acute renal failure. Likely secondary to dehydration. Patient started on IV hydration. Nephrology consulted. Renal ultrasound pending. Will await further recommendation from bench tool maker. --Hypokalemia. Replete prn. Will re-assess levels in am --Hyponatremia. We will trend sodium levels-- Improving with IV hydration. Continue supportive care. --Nausea and Vomiting. Antiemetics on board. Continue IV hydration. --Alcohol abuse. Patient placed on banana bag, Librium and Ativan p.r.n.. CIWA protocol. --GERD. Continue Protonix. --Fatty liver. Likely secondary to alcohol abuse. Patient counseled on alcohol cessation. --DVT prophylaxis with Heparin subQ Discharge Plan: Home Plan to discharge in: 48 Hours - Advance Directives Does patient have a Living Will: Yes - Code Status/Comfort Care Code Status Assessed: Yes Code Status: Full Code Critical Care: No
[2020-11-27 17:58] VITALS: BMI 21.4
--- NOTE | 2020-11-27 18:01 | RAD REPORT ---
EXAM DESCRIPTION: US - Renal Ultrasound-Complete - 11/27/2020 5:51 pm CLINICAL HISTORY: ARF Flank pain COMPARISON: Abdomen Exam Limited dated 11/27/2020; Abdomen Exam Limited dated 05/29/2020; Abdomen Exa m Limited dated 03/10/2020 FINDINGS: Examination was limited due to patient cooperation issues. Both kidneys are normal in size, shape and echotexture. The right kidney measures 8.2 x 4.4 x 4.2 cm. No hydronephrosis. The left kidney measures 8.8 x 5.8 x 3.9 cm. No hydronephrosis. The urinary bladder is incompletely distended without gross abnormality seen. IMPRESSION: Grossly negative renal ultrasound.
[2020-11-27] MEDS ORDERED: chlordiazePOXIDE HCl 5 MG CAP PO PRN (18:58)
[2020-11-27] MEDS ORDERED: LORazepam 2 MG/ML VIAL IV PRN (19:00)
[2020-11-27] MEDS: D5NS KCL 20MEQ 1,000 ML IV SCH (19:00)
[2020-11-27] MEDS: HEPARIN 5000 UNIT/ML 1 ML VIAL SQ SCH (21:00)
[2020-11-27] MEDS ORDERED: HEPARIN 5000 UNIT/ML 1 ML VIAL ONE (22:10)
[2020-11-28] MEDS: D5NS KCL 20MEQ 1,000 ML IV SCH ×3 (00:55→12:13)
[2020-11-28] MEDS ORDERED: CEFTRIAXONE 1 GM/NS 50 ML 1 GM/50 ML BAG IV SCH (01:38)
[2020-11-28] MEDS ORDERED: CEFTRIAXONE/SWI 1gm 1 GM/10 ML SYR IVP SCH (02:00)
[2020-11-28 02:51] LABS: Urine Appearance CLOUDY (Clear); Urine Blood NEGATIVE (Negative); Urine Color DK YELLOW (Yellow); Urine Glucose TRACE (Negative); Urine Protein 2+ (Negative); Urine Urobilinogen 0.2 mg/dL (0.2-1.0); Urine pH 5.5 (5.0-7.0)
[2020-11-28 02:56] LABS: Barbiturates NEGATIVE (NEGATIVE); Benzodiazepines NEGATIVE (NEGATIVE); Cocaine NEGATIVE (NEGATIVE); METHAMPHETAM NEGATIVE (NEGATIVE); Methadone NEGATIVE (NEGATIVE); Opiates NEGATIVE (NEGATIVE); Phencyclidine NEGATIVE (NEGATIVE); THC Cannibis NEGATIVE (NEGATIVE)
[2020-11-28 02:59] LABS: Urine Bilirubin 1+ (Negataive)
[2020-11-28] MEDS ORDERED: CEFTRIAXONE/SWI 1gm 1 GM/10 ML SYR ONE ×2 (03:11→20:58)
[2020-11-28 03:14] LABS: Albumin 2.4 g/dL (3.4-5.0); Bilirubin Total 4.8 mg/dL (0.2-1.0); Potassium 3.5 mmol/L (3.5-5.1); Protein, Total 5.2 g/dL (6.4-8.2)
[2020-11-28 03:52] LABS: C-Reactive Protein 9.28 mg/L (<3.00); Magnesium 0.9 mg/dL (1.8-2.4)
[2020-11-28] MEDS ORDERED: MAGNESIUM SULFATE 1 gm IVPB 1 GM/100 ML BAG IV ONE ×4 (04:29→06:51)
[2020-11-28 04:34] LABS: Urine Bacteria <20 /HPF (<20); Urine RBC <5 /HPF (NONE SEEN)
[2020-11-28 05:03] LABS: Absolute Lymphocytes (CBC) 0.4 K/uL (0.7-4.9); Basophils % 0.2 % (0-1.3); Lymphocytes % 4.5 % (15.3-44.8); MPV 8.4 fL (7.6-11.3); RBC Red Blood Cell Count 2.75 M/uL (3.86-4.86)
[2020-11-28 05:42] LABS: Arterial Blood Carboxyhemoglob 1.8 % (0-1.5); Blood Gas Oxyhemoglobin 95.2 % (94-97); Blood O2 Saturation 97.6 % (92-98.5)
[2020-11-28 06:13] LABS: Blood Morphology Comment NOTED (NOT SEEN); Macrocytosis 1+; Platelet Estimate DECR; White Blood Cell Scan OK (OK)
[2020-11-28] MEDS ORDERED: CALCIUM GLUCONATE 1 GM IVPB 1 GM/50 ML BAG IV ONE (06:51)
[2020-11-28] MEDS: PANTOPRAZOLE 40MG TABLET PO SCH (07:30)
--- NOTE | 2020-11-28 07:33 | P.CNS ---
Date of Consult: 11/28/20 Reason for Consult: AIDA, Hyponatremia, hypomagnesemia, hypokalemia. Requesting Physician: Taj Vidales Chief Complaint: ARF History of Present Illness: 70 y o female pt with hx of erosive gastritis, Alcohol abuse, fatty liver and re cent UTI who was admitted for management of acute renal failure. She was reported to have been altered and weak for a while. she was found to have elevated creatinine of 4.5 and hypotension. she was stated on IV fluid and was admitted for inpt care. Multiple electrolyte abnormalities were discovered which include low sodium, potassium and magnesium. Allergies hydrocodone [From [place]] Allergy (Severe, Verified 05/29/20 23:21) Hives/Rash Home Medications: Travoprost [Travatan Z*] 1 gtt EACH EYE BEDTIME 05/19/18 Pantoprazole [Protonix Tab*] 40 mg PO ACB #30 tab 05/29/18 Folic Acid 1 mg PO DAILY 05/29/20 Thiamine HCl [B-1] 100 mg PO DAILY #30 tablet 05/30/20 - Past Medical/Surgical History Diabetic: No -: Fatty liver -: Alcohol abuse -: Former tobacco use -: GERD -: History of Recurrent UTI -: 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 She has 3 children. 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 She works as a tax filer. - Family History Mother Medical History: Cancer Father Medical History: Lung disease Notes: emphysema - Social History Smoking Status: Unknown if ever smoked Alcohol use: Yes CD- Drugs: No Caffeine use: No Place of Residence: Home Review of Systems is unable to be obtained Physical Examination Temp Pulse Resp BP Pulse Ox 98.6 F 124 H 19 115/63 98 11/28/20 02:15 11/28/20 06:00 11/28/20 06:00 11/28/20 06:00 11/28/20 06:00 General: Confused HEENT: Atraumatic, Normocephalic Neck: Supple Respiratory: Clear to auscultation bilaterally Cardiovascular: Regular rate/rhythm, Normal S1 S2 Gastrointestinal: Soft and benign Neurological: Other (obtunded.) Laboratory Data (last 24 hrs) 11/27/20 13:00: WBC 5.80 D, Hgb 10.1 L, Hct 29.1 L, Plt Count 119 L D 11/27/20 13:00: Sodium 125 L, Potassium 3.0 L, BUN 6 L, Creatinine 4.57 H D, Glucose 110 H, Total Bilirubin 6.2 H*, AST 77 H, ALT 17, Alkaline Phosphatase 162 H, Lipase 27 L Conclusions/Impression: 1. AIDA-AIDA stage 3 noted with creatinine of 4.57 on initial labs. her sepsis/hypotensive episode make ischemic ATN the suspected pathology but with use of ciprofloxacin, there is concerns for possible interstitial nephritis. we have strted IV fluid for hydration. we will continue rotine monitoring of her vitals and renal function. we will avoid nephrotoxin exposure and dose meds for eGFR. if her renal function continues to lag in correction with hydration, we will strongly consider renal biospy and further work up. we will obtain renal US for further eval at this time. 2. Hyponatremia-Low sodium of 125 noted on initial labs. we have started NS for volume repletion and her sodium is improved. we will follow trend. 3. Hypomagnesemia-Low magnesium of 0.9 noted on initial labs. we will replete and monitor closely. 4. Hypokalemia-Low potassium of 3.0 noted on initial labs. we will replete and monitor closely. 5. Hypotension-Deemed due to volume depletion. we have started IV fluid for repletion. we will follow trend of vitals closely. 6.Hypocalcemia- related to her sepsis/aida episode. we have started repletion via IV route. we will follow trend of calcium closely.
[2020-11-28] MEDS ORDERED: CALCIUM GLUC 10% INJ 4.65 MEQ in NA CHLORIDE 0.9% 100 ML IV ONE (08:00)
[2020-11-28] MEDS: FOLIC ACID 1 MG, MULTIVITAMINS INJ 10 ML, THIAMINE HCL 100 MG in NA CHLORIDE 0.9% 1,000 ML IV SCH (08:32)
[2020-11-28] MEDS: HEPARIN 5000 UNIT/ML 1 ML VIAL SQ SCH ×2 (08:47→21:10)
[2020-11-28] MEDS: VANCOMYCIN ORAL SOLN 250 MG/5 ML OSYR PO SCH ×3 (09:00→18:11)
[2020-11-28] MEDS ORDERED: HEPARIN 5000 UNIT/ML 1 ML VIAL ONE ×2 (09:06→20:58)
--- NOTE | 2020-11-28 09:57 | RAD REPORT ---
EXAM DESCRIPTION: CT - Chest Abd Pelvis Wo Con - 11/28/2020 6:52 am CLINICAL HISTORY: The patient is 70 years old and is Female; abdominal pain TECHNIQUE: Axial computed tomography images of the chest, abdomen and pelvis without intravenous con trast. Sagittal and coronal reformatted images were created and reviewed. This CT exam was perfor med using one or more of the following dose reduction techniques: automated exposure control, adjus tment of the mA and/or kV according to patient size, and/or use of iterative reconstruction technique . COMPARISON: CT of the abdomen and pelvis March 10, 2020. FINDINGS: ARTIFACTS: The exam is suboptimal secondary to motion artifact. CHEST: LUNGS: Compressive atelectasis in the lung bases is noted. The lungs are otherwise clear. PLEURAL SPACE: Bilateral pleural effusions are present. No pneumothorax. HEART: A trace pericardial effusion is present. MEDIASTINUM: The esophagus is distended with air and fluid. ABDOMEN: LIVER: The liver is enlarged and diffusely fatty. GALLBLADDER AND BILE DUCTS: The gallbladder is distended with several layering calcified gallston es. There is no ductal dilatation. PANCREAS: Unremarkable. No ductal dilation. SPLEEN: Unremarkable. ADRENALS: Unremarkable. No mass. KIDNEYS AND URETERS: No obstructing stones. No hydronephrosis. No perinephric fluid. STOMACH AND BOWEL: Diffuse mucosal thickening of the colon is present. The stomach is distended w ith fluid and air. Suggestion of diffuse mucosal thickening of the small bowel is noted. There is no evidence of obstruction. PELVIS: APPENDIX: No findings to suggest acute appendicitis. BLADDER: The bladder is decompressed with a Valdez catheter in place. No stones. REPRODUCTIVE: Unremarkable as visualized. CHEST, ABDOMEN and PELVIS: INTRAPERITONEAL SPACE: A small amount of ascites is present throughout the abdomen and pelvis. No free air. BONES/JOINTS: Multilevel degenerative change of the spine is present. SOFT TISSUES: The soft tissues are normal. VASCULATURE: Unremarkable. No aortic aneurysm. LYMPH NODES: Unremarkable. No enlarged lymph nodes. IMPRESSION: 1. Diffuse small bowel and colonic mucosal thickening concerning for enterocolitis. In fectious, inflammatory, and ischemic etiologies are within the differential. A discrete mass is not s een. However, correlation patient's laboratory values and follow-up is recommended. 2. Small bilateral pleural effusions with trace pericardial effusion. 3. Small amount of ascites throughout the abdomen and pelvis. 4. Cholelithiasis without CT evidence to suggest cholecystitis. Electronically signed by: Samia Vásquez MD 11/28/2020 2:38 AM CDT Due to temporary technical issues with the PACS/Fluency reporting system, reports are being signed by the in house radiologists without review as a courtesy to insure prompt reporting. The interpreting radiologist is fully responsible for the content of the report.
--- NOTE | 2020-11-28 11:07 | RAD REPORT ---
EXAM DESCRIPTION: CT - Head Brain Wo Cont - 11/28/2020 6:53 am CLINICAL HISTORY: Altered mental status COMPARISON: CT Head/Brain Without Contrast 11/21/2020 TECHNIQUE: Head/brain axial images acquired without contrast. Coronal and sagittal reformats created . Exam performed according to departmental dose-optimization program which includes automated exposur e control, adjustment of mA and/or kV according to patient size, and/or use of iterative reconstructi on technique. FINDINGS: No midline shift, mass effect, intracranial hemorrhage, or hydrocephalus. Left lateral ventricle is moderately larger than right. Mild hypodense periventricular cerebral white matter abnormality. CSF spaces appear overall mildly enlarged likely representing age-appropriate cerebral volume loss. Paranasal sinuses and mastoid air cells clear. No skull fracture or significant skull lesion. IMPRESSION: Mild cerebral white matter disease most likely represents chronic small vessel ischemia. Electronically signed by: Som Cope MD 11/28/2020 2:30 AM CDT Due to temporary technical issues with the PACS/Fluency reporting system, reports are being signed by the in house radiologists without review as a courtesy to insure prompt reporting. The interpreting radiologist is fully responsible for the content of the report.
--- NOTE | 2020-11-28 16:15 | P.PN ---
Subjective Date of Service: 11/28/20 Chief Complaint: ARF Patient is obstunded today. She is placed on BiPAP. Blood pressure is borderline low. Physical Examination - Vital Signs Temperature: 97.4 F Blood Pressure: 121/85 Pulse: 113 Respirations: 14 Pulse Ox (%): 100 - Physical Exam General: Other (Minimally responsive) HEENT: Other (BiPAP) Neck: JVD not distended Respiratory: Clear to auscultation bilaterally, Normal air movement Cardiovascular: No edema, Other (Tachycardia, regular rhythm.) Gastrointestinal: Normal bowel sounds, Soft and benign, Non-distended Musculoskeletal: No swelling Integumentary: No rashes Assessment And Plan - Current Problems (Diagnosis) (1) Acute metabolic encephalopathy Current Visit: Yes Status: Acute (2) Acute renal failure Current Visit: Yes Status: Acute (3) Sepsis Current Visit: No Status: Resolved Qualifiers: Sepsis type: sepsis due to unspecified organism Qualified Code(s): A41.9 - Sepsis, unspecified organism (4) Alcohol abuse Onset Date: 05/20/18 Current Visit: No Status: Chronic (5) Hepatic cirrhosis Onset Date: 06/30/17 Current Visit: No Status: Chronic Qualifiers: Hepatic cirrhosis type: alcoholic cirrhosis Ascites presence: without ascites Qualified Code(s): K70.30 - Alcoholic cirrhosis of liver without ascites (6) Hyponatremia Onset Date: 05/20/18 Current Visit: No Status: Resolved (7) Hypocalcemia Current Visit: Yes Status: Acute - Plan Patient with altered mental status. She has not received Ativan or Librium since admission. Arterial blood gas shows no PCO2 retention. Pro calcitonin and lactate elevated. Patient is tachycardic and meet criteria for SIRS. Start IV Rocephin and vancomycin. Follow blood cultures and urine culture. Continue IV hydration. Nephrology is following and managing acute renal failure. Continue D5 normal saline Status post IV calcium replacement today. Monitor and replete electrolytes.
[2020-11-28] MEDS ORDERED: VANCOMYCIN/NS 1 gm 1 GM/250 ML BAG IVPB ONE (18:00)
[2020-11-28] MEDS: Rifaximin 550 MG Tab PO SCH (21:00)
[2020-11-28] MEDS: CEFTRIAXONE/SWI 1gm 1 GM/10 ML SYR IVP SCH (21:10)
[2020-11-28 21:32] LABS: Bilirubin Total 3.5 mg/dL (0.2-1.0); Phosphorus 2.3 mg/dL (2.5-4.9); Protein, Total 4.6 g/dL (6.4-8.2)
[2020-11-28 21:39] LABS: Potassium 4.1 mmol/L (3.5-5.1)
[2020-11-28 21:40] LABS: Magnesium 1.5 mg/dL (1.8-2.4)
[2020-11-28] MEDS: NA CHLORIDE 0.9% 1,000 ML IV SCH (23:00)
[2020-11-29] MEDS: VANCOMYCIN ORAL SOLN 250 MG/5 ML OSYR PO SCH ×3 (00:50→12:14)
[2020-11-29] MEDS ORDERED: NA CHLORIDE 0.9% 1,000 ML ONE ×2 (01:02→11:29)
[2020-11-29 05:51] LABS: Absolute Lymphocytes (CBC) 0.5 K/uL (0.7-4.9); Basophils % 0.6 % (0-1.3); Lymphocytes % 14.5 % (15.3-44.8); MPV 8.8 fL (7.6-11.3); RBC Red Blood Cell Count 2.33 M/uL (3.86-4.86)
[2020-11-29 06:08] LABS: Albumin 1.9 g/dL (3.4-5.0); Bilirubin Total 2.8 mg/dL (0.2-1.0); Potassium 3.8 mmol/L (3.5-5.1); Protein, Total 4.5 g/dL (6.4-8.2)
[2020-11-29 06:17] LABS: Magnesium 1.6 mg/dL (1.8-2.4)
[2020-11-29 07:14] LABS: Phosphorus 2.6 mg/dL (2.5-4.9)
[2020-11-29] MEDS ORDERED: VANCOMYCIN 1 GM in NA CHLORIDE 0.9% 500 ML IVPB SCH (09:00)
[2020-11-29] MEDS: HEPARIN 5000 UNIT/ML 1 ML VIAL SQ SCH ×2 (09:00→21:00)
[2020-11-29] MEDS: PANTOPRAZOLE 40MG TABLET PO SCH (09:25)
[2020-11-29] MEDS: CEFTRIAXONE/SWI 1gm 1 GM/10 ML SYR IVP SCH ×2 (09:25→22:41)
[2020-11-29] MEDS: FOLIC ACID 1 MG, MULTIVITAMINS INJ 10 ML, THIAMINE HCL 100 MG in NA CHLORIDE 0.9% 1,000 ML IV SCH (09:25)
[2020-11-29] MEDS: Rifaximin 550 MG Tab PO SCH ×2 (09:27→21:00)
[2020-11-29] MEDS ORDERED: PANTOPRAZOLE 40MG TABLET PO ONE (09:43)
[2020-11-29] MEDS ORDERED: CEFTRIAXONE/SWI 1gm 1 GM/10 ML SYR ONE (09:43)
[2020-11-29] MEDS: NA CHLORIDE 0.9% 1,000 ML IV SCH ×2 (11:11→17:35)
--- NOTE | 2020-11-29 19:03 | P.PN ---
Subjective Date of Service: 11/29/20 Chief Complaint: ARF Patient is more awake and responsive today. He has very minimal urine output. Blood pressure is borderline low. No change in serum Cr. Physical Examination - Vital Signs Temperature: 96.9 F Blood Pressure: 124/57 Pulse: 93 Respirations: 14 Pulse Ox (%): 99 - Physical Exam General: Confused, Other (Awake) HEENT: Mucous membr. moist/pink Neck: JVD not distended Respiratory: Clear to auscultation bilaterally, Normal air movement Cardiovascular: No edema, Normal S1 S2, Other (Regular and tachycardic.) Gastrointestinal: Normal bowel sounds, Soft and benign, Non-distended, No tenderness Musculoskeletal: No swelling, No tenderness Integumentary: No rashes, No erythema Neurological: Other (No focal motor deficit) Assessment And Plan - Current Problems (Diagnosis) (1) Acute metabolic encephalopathy Current Visit: Yes Status: Acute (2) Acute renal failure Current Visit: Yes Status: Acute (3) Sepsis Current Visit: No Status: Resolved Qualifiers: Sepsis type: sepsis due to unspecified organism Qualified Code(s): A41.9 - Sepsis, unspecified organism (4) Alcohol abuse Onset Date: 05/20/18 Current Visit: No Status: Chronic (5) Hepatic cirrhosis Onset Date: 06/30/17 Current Visit: No Status: Chronic Qualifiers: Hepatic cirrhosis type: alcoholic cirrhosis Ascites presence: without ascites Qualified Code(s): K70.30 - Alcoholic cirrhosis of liver without ascites (6) Hyponatremia Onset Date: 05/20/18 Current Visit: No Status: Resolved (7) Hypocalcemia Current Visit: Yes Status: Acute (8) Anemia Onset Date: 06/30/17 Current Visit: No Status: Acute Qualifiers: Anemia type: B12 deficiency Vitamin B12 deficiency anemia type: unspecified B12 deficiency Qualified Code(s): D51.9 - Vitamin B12 deficiency anemia, unspecified (9) Thrombocytopenia Current Visit: No Status: Acute - Plan Patient with altered mental status. Arterial blood gas shows no PCO2 retention. Pro calcitonin and lactate elevated. Patient is tachycardic and meet criteria for SIRS. Continue IV Rocephin and vancomycin. Repeat blood culture. Urine culture: No growth. Continue IV hydration. Nephrology is following and managing acute renal failure. Continue D5 normal saline. No change in serum creatinine. Patient may need hemodialysis. Monitor and replete electrolytes. Monitor CBC to follow thrombocytopenia. Monitor and transfuse for hemoglobin less than 7.
[2020-11-30] MEDS: NA CHLORIDE 0.9% 1,000 ML IV SCH ×3 (04:00→20:36)
[2020-11-30 04:59] LABS: Absolute Lymphocytes (CBC) 0.5 K/uL (0.7-4.9); Basophils % 0.6 % (0-1.3); Hematocrit 24.9 % (36.0-45.0); Lymphocytes % 20.1 % (15.3-44.8); MPV 9.5 fL (7.6-11.3); RBC Red Blood Cell Count 2.28 M/uL (3.86-4.86)
[2020-11-30 05:12] LABS: Ferritin 890.1 ng/mL (8-388); Phosphorus 3.4 mg/dL (2.5-4.9)
[2020-11-30 05:13] LABS: Potassium 3.8 mmol/L (3.5-5.1)
[2020-11-30 05:53] LABS: Magnesium 1.5 mg/dL (1.8-2.4)
[2020-11-30] MEDS ORDERED: Magnesium Sulfate 2gm IVPB 2 G/50 ML BAG IV ONE (06:37)
[2020-11-30] MEDS: PANTOPRAZOLE 40MG TABLET PO SCH (07:30)
[2020-11-30] MEDS ORDERED: KCL 20 MEQ/100 mL IVPB 20 MEQ/100 ML BAG IV SCH (08:00)
[2020-11-30] MEDS: Rifaximin 550 MG Tab PO SCH ×2 (08:10→20:36)
[2020-11-30] MEDS: HEPARIN 5000 UNIT/ML 1 ML VIAL SQ SCH ×2 (08:13→20:43)
[2020-11-30] MEDS: CEFTRIAXONE/SWI 1gm 1 GM/10 ML SYR IVP SCH ×2 (08:50→20:36)
[2020-11-30] MEDS: FOLIC ACID 1 MG, MULTIVITAMINS INJ 10 ML, THIAMINE HCL 100 MG in NA CHLORIDE 0.9% 1,000 ML IV SCH (09:00)
[2020-11-30 11:54] LABS: C.diff Antigen/Toxin Ag neg : Tox neg (NEG : NEG)
--- NOTE | 2020-11-30 14:55 | RAD REPORT ---
EXAM DESCRIPTION: RAD - Barium Swallow Modified - 11/30/2020 2:39 pm CLINICAL HISTORY: check for aspiration COMPARISON: None. TECHNIQUE: The patient was given liquid, semi-solid and solid forms of barium. Lateral view fluorosc opic imaging was performed in conjunction with speech pathology service. FINDINGS: Cineloop acquisitions: 19 Fluoro time: 2 minutes 49 seconds Pharyngeal residue: vallecular, pyriform, posterior wall Severe with pudding and brittney cracker in the vallecula and then reduced to minimal following 3 sips of thin liquid via straw. Mild with all consistencies inthe pyriforms and posterior wall; then reduced to min on cued consecuti ve swallows. Delayed swallow (<1 sec.). Moderate residue in UES with solids (puree and regular) cleared to lower esophagus with liquid wash. Mild lower esophagus retention / stasis with thin liquid. Mild retropulsion / reflux noted. IMPRESSION: Modified barium swallow as summarized above and fully detailed on speech pathology repor wilian
--- NOTE | 2020-11-30 16:46 | P.PN ---
Subjective Date of Service: 11/30/20 Chief Complaint: ARF Patient is more awake and interactive. Urine output is 150 over the past 24 hours. Blood pressure is borderline low. No significant change in serum Cr. Physical Examination - Vital Signs Temperature: 97 F Blood Pressure: 97/57 Pulse: 95 Respirations: 16 Pulse Ox (%): 99 - Physical Exam General: In no apparent distress, Oriented x2, Other ([place]ake) HEENT: Mucous membr. moist/pink, Scleral icterus Neck: Supple, JVD not distended Respiratory: Clear to auscultation bilaterally, Normal air movement Cardiovascular: Regular rate/rhythm, Normal S1 S2 Gastrointestinal: Normal bowel sounds, Soft and benign, Non-distended, No tenderness Musculoskeletal: No swelling Integumentary: Other (Jaundice skin) Neurological: Normal strength at 5/5 x4 extr, Cranial nerves 3-12 intact Assessment And Plan - Current Problems (Diagnosis) (1) Acute metabolic encephalopathy Current Visit: Yes Status: Acute (2) Acute renal failure Current Visit: Yes Status: Acute (3) Sepsis Current Visit: No Status: Resolved Qualifiers: Sepsis type: sepsis due to unspecified organism Qualified Code(s): A41.9 - Sepsis, unspecified organism (4) Alcohol abuse Onset Date: 05/20/18 Current Visit: No Status: Chronic (5) Hepatic cirrhosis Onset Date: 06/30/17 Current Visit: No Status: Chronic Qualifiers: Hepatic cirrhosis type: alcoholic cirrhosis Ascites presence: without ascites Qualified Code(s): K70.30 - Alcoholic cirrhosis of liver without ascites (6) Hyponatremia Onset Date: 05/20/18 Current Visit: No Status: Resolved (7) Hypocalcemia Current Visit: Yes Status: Acute (8) Anemia Onset Date: 06/30/17 Current Visit: No Status: Acute Qualifiers: Anemia type: B12 deficiency Vitamin B12 deficiency anemia type: unspecified B12 deficiency Qualified Code(s): D51.9 - Vitamin B12 deficiency anemia, unspecified (9) Thrombocytopenia Current Visit: No Status: Acute - Plan Altered mental status improved. Arterial blood gas shows no PCO2 retention. Pro calcitonin and lactate elevated. Patient met criteria for SIRS. Continue IV Rocephin and vancomycin. Repeat blood culture. 1st blood culture sample considered inadequate. Urine culture: No growth. AIDA secondary to hepatorenal syndrome and possibly prerenal from dehydration. Renal function has not responded to IV fluid Continue IV hydration. Nephrology is following and consider hemodialysis. Monitor and replete electrolytes. Monitor CBC to follow thrombocytopenia. Monitor and transfuse for hemoglobin less than 7.
[2020-11-30] MEDS ORDERED: VANCOMYCIN 500 MG in NA CHLORIDE 0.9% 100 ML IVPB SCH (18:00)
[2020-11-30] MEDS ORDERED: VANCOMYCIN 750 MG in NA CHLORIDE 0.9% 250 ML IVPB SCH ×2 (19:00→20:00)
[2020-12-01 07:14] LABS: Absolute Lymphocytes (CBC) 0.4 K/uL (0.7-4.9); Basophils % 0.4 % (0-1.3); Hematocrit 25.2 % (36.0-45.0); Lymphocytes % 14.8 % (15.3-44.8); MPV 9.3 fL (7.6-11.3); RBC Red Blood Cell Count 2.29 M/uL (3.86-4.86)
[2020-12-01 07:28] LABS: Albumin 2.1 g/dL (3.4-5.0); Phosphorus 3.5 mg/dL (2.5-4.9)
[2020-12-01 07:29] LABS: Potassium 4.2 mmol/L (3.5-5.1)
--- NOTE | 2020-12-01 08:57 | P.PN ---
Subjective Date of Service: 12/01/20 Chief Complaint: ARF Subjective: No new changes, Improving Physical Examination - Vital Signs Temperature: 96.9 F Blood Pressure: 115/62 Pulse: 110 Respirations: 20 Pulse Ox (%): 99 - Physical Exam General: Alert, Cachectic HEENT: Atraumatic, Normocephalic Neck: Supple Respiratory: Clear to auscultation bilaterally Cardiovascular: Regular rate/rhythm, Normal S1 S2 Gastrointestinal: Soft and benign Musculoskeletal: No swelling Assessment And Plan - Plan 1. AIDA-AIDA stage 3 noted with creatinine of 4.57 on initial labs. repeat labs today revealed creatinine of 4.10. she has also developed progressive metabolic acidemia. we will discuss renal biopsy with family and in view of suspected AIN, we will start empiric steroid therapy. we will continue to dose meds for eGFR and avoid nephrotoxins. discussed with at bedside today about plan of care and concerns for acute interstitial nephritis and tril of steroid. we will observe response to therapy and consider renal biopsy by next week if no significant improvement is renal function. 2. Hyponatremia-sodium is now normal. we will follow BMP closely. 3. Hypomagnesemia-mag is now normal at 2.0. we will continue routine monitoring. 4. Hypokalemia-Potassium is now 4.2. we will monitor closely. 5. Hypotension-Resolved. we will follow trend of vitals. 6. Hypocalcemia- Low calcium but much improved since admission. we will follow trend closely. 7. Metabolic acidemia-Bicarb is now much lower at 14. we will start sodium bicarbonate drip. we will follow trend of bicarb closely. we will obtain lactate level to further evaluate.
[2020-12-01] MEDS: CEFTRIAXONE/SWI 1gm 1 GM/10 ML SYR IVP SCH (09:00)
[2020-12-01 10:07] LABS: White Blood Cell Scan OK (OK)
[2020-12-01 10:08] LABS: Anisocytosis 1+; Blood Morphology Comment NOTED (NOT SEEN); Macrocytosis 2+; Platelet Estimate DECR
[2020-12-01] MEDS: PANTOPRAZOLE 40MG TABLET PO SCH (10:40)
[2020-12-01] MEDS: HEPARIN 5000 UNIT/ML 1 ML VIAL SQ SCH ×2 (10:41→20:31)
[2020-12-01] MEDS: Rifaximin 550 MG Tab PO SCH ×2 (10:42→21:00)
[2020-12-01] MEDS: METHYLPREDNISOLONE 125 MG INJ IV SCH (10:42)
[2020-12-01] MEDS: FOLIC ACID 1 MG, MULTIVITAMINS INJ 10 ML, THIAMINE HCL 100 MG in NA CHLORIDE 0.9% 1,000 ML IV SCH (11:19)
[2020-12-01] MEDS: WATER FOR INJ,STERILE 1,000 ML with NA BICARB 8.4% 150 MEQ IV SCH ×2 (11:20)
[2020-12-01] MEDS: SODIUM BICARB 325 MG TAB PO SCH (15:38)
--- NOTE | 2020-12-01 17:24 | P.PN ---
Subjective Date of Service: 12/01/20 Chief Complaint: ARF No major changes from yesterday. Urine output remain poor. Serum creatinine level is slightly better today. Physical Examination - Vital Signs Temperature: 96.8 F Blood Pressure: 105/52 Pulse: 89 Respirations: 18 Pulse Ox (%): 99 - Physical Exam General: In no apparent distress, Other (Drowsy) HEENT: Mucous membr. moist/pink, Scleral icterus Neck: JVD not distended Respiratory: Clear to auscultation bilaterally, Normal air movement Cardiovascular: No edema, Regular rate/rhythm, Normal S1 S2 Gastrointestinal: Normal bowel sounds, Soft and benign, Non-distended, No tenderness Musculoskeletal: No swelling Integumentary: No rashes Neurological: Other (Nonfocal) Assessment And Plan - Current Problems (Diagnosis) (1) Acute metabolic encephalopathy Current Visit: Yes Status: Acute (2) Acute renal failure Current Visit: Yes Status: Acute (3) Sepsis Current Visit: No Status: Resolved Qualifiers: Sepsis type: sepsis due to unspecified organism Qualified Code(s): A41.9 - Sepsis, unspecified organism (4) Alcohol abuse Onset Date: 05/20/18 Current Visit: No Status: Chronic (5) Hepatic cirrhosis Onset Date: 06/30/17 Current Visit: No Status: Chronic Qualifiers: Hepatic cirrhosis type: alcoholic cirrhosis Ascites presence: without ascites Qualified Code(s): K70.30 - Alcoholic cirrhosis of liver without ascites (6) Hyponatremia Onset Date: 05/20/18 Current Visit: No Status: Resolved (7) Hypocalcemia Current Visit: Yes Status: Acute (8) Anemia Onset Date: 06/30/17 Current Visit: No Status: Acute Qualifiers: Anemia type: B12 deficiency Vitamin B12 deficiency anemia type: unspecified B12 deficiency Qualified Code(s): D51.9 - Vitamin B12 deficiency anemia, unspecified (9) Thrombocytopenia Current Visit: No Status: Acute - Plan Altered mental status improved. Arterial blood gas shows no PCO2 retention. Patient no longer meeting criteria for sepsis. Sepsis resolved. Urine culture is growing ESBL E. coli Was switched antibiotics to IV meropenem. Repeat blood culture. 1st blood culture sample considered inadequate. AIDA secondary to hepatorenal syndrome and possibly prerenal from dehydration. Renal function has not responded to IV fluid Continue IV hydration. Nephrology input appreciated. Patient started on a t rial of IV steroid for AIN. Nephrology is also considering renal biopsy if not improving. Monitor and replete electrolytes. Monitor CBC to follow thrombocytopenia. Monitor and transfuse for hemoglobin less than 7.
[2020-12-01] MEDS ORDERED: Meropenem 1 GM/100 ML BAG IV SCH (20:00)
[2020-12-01] MEDS ORDERED: Meropenem 500 MG VIAL IV SCH (21:00)
[2020-12-01] MEDS: Meropenem 500 MG/100 ML BAG IV SCH (22:05)
[2020-12-02] MEDS ORDERED: Meropenem 1000 MG/VIAL IV SCH (01:00)
[2020-12-02] MEDS ORDERED: Meropenem 1 GM/100 ML BAG IV SCH (01:00)
[2020-12-02] MEDS: WATER FOR INJ,STERILE 1,000 ML with NA BICARB 8.4% 150 MEQ IV SCH ×6 (01:19→16:11)
[2020-12-02 06:24] LABS: Absolute Lymphocytes (CBC) 0.5 K/uL (0.7-4.9); Basophils % 0.5 % (0-1.3); Hematocrit 24.2 % (36.0-45.0); Lymphocytes % 17.8 % (15.3-44.8)
[2020-12-02 06:40] LABS: Albumin 2.3 g/dL (3.4-5.0); Phosphorus 3.6 mg/dL (2.5-4.9); Potassium 3.7 mmol/L (3.5-5.1)
[2020-12-02] MEDS: HEPARIN 5000 UNIT/ML 1 ML VIAL SQ SCH ×2 (07:53→20:51)
[2020-12-02] MEDS: FOLIC ACID 1 MG, MULTIVITAMINS INJ 10 ML, THIAMINE HCL 100 MG in NA CHLORIDE 0.9% 1,000 ML IV SCH (09:00)
[2020-12-02] MEDS: METHYLPREDNISOLONE 125 MG INJ IV SCH ×2 (09:00→09:02)
[2020-12-02] MEDS: PANTOPRAZOLE 40MG TABLET PO SCH (09:02)
[2020-12-02] MEDS: Rifaximin 550 MG Tab PO SCH ×2 (09:03→21:04)
[2020-12-02] MEDS: SODIUM BICARB 325 MG TAB PO SCH ×2 (09:04→21:04)
--- NOTE | 2020-12-02 12:56 | P.PN ---
Subjective Date of Service: 12/02/20 Chief Complaint: ARF Urine output remain poor. Patient is more awake today. Serum creatinine is improving slowly does persistently acidotic. Physical Examination - Vital Signs Temperature: 97.2 F Blood Pressure: 127/73 Pulse: 109 Respirations: 18 Pulse Ox (%): 98 - Physical Exam General: Confused, Other (Awake) HEENT: Mucous membr. moist/pink, Scleral icterus Neck: Supple, JVD not distended Respiratory: Clear to auscultation bilaterally, Normal air movement Cardiovascular: No edema Gastrointestinal: Normal bowel sounds, Soft and benign, Non-distended, No tenderness Musculoskeletal: No swelling Integumentary: No rashes Neurological: Other (No focal motor deficit.) Assessment And Plan - Current Problems (Diagnosis) (1) Acute metabolic encephalopathy Current Visit: Yes Status: Acute (2) Acute renal failure Current Visit: Yes Status: Acute (3) Sepsis Current Visit: No Status: Resolved Qualifiers: Sepsis type: sepsis due to unspecified organism Qualified Code(s): A41.9 - Sepsis, unspecified organism (4) Alcohol abuse Onset Date: 05/20/18 Current Visit: No Status: Chronic (5) Hepatic cirrhosis Onset Date: 06/30/17 Current Visit: No Status: Chronic Qualifiers: Hepatic cirrhosis type: alcoholic cirrhosis Ascites presence: without ascites Qualified Code(s): K70.30 - Alcoholic cirrhosis of liver without ascites (6) Hyponatremia Onset Date: 05/20/18 Current Visit: No Status: Resolved (7) Hypocalcemia Current Visit: Yes Status: Acute (8) Anemia Onset Date: 06/30/17 Current Visit: No Status: Acute Qualifiers: Anemia type: B12 deficiency Vitamin B12 deficiency anemia type: unspecified B12 deficiency Qualified Code(s): D51.9 - Vitamin B12 deficiency anemia, unspecified (9) Thrombocytopenia Current Visit: No Status: Acute - Plan Altered mental status improved. Sepsis resolved. Urine culture is growing ESBL E. coli Continue IV meropenem. Repeat blood culture is pending. 1st blood culture sample considered inadequate. AIDA secondary to hepatorenal syndrome and possibly prerenal from dehydration. Renal function slowly improving. Continue IV hydration. Nephrology input appreciated. Patient started on a trial of IV steroid for AIN. Nephrology is following. Bicarb replacement for metabolic acidosis. Monitor and replete electrolytes. Monitor CBC to follow thrombocytopenia. Monitor and transfuse for hemoglobin less than 7.
[2020-12-02] MEDS: Meropenem 500 MG/100 ML BAG IV SCH (20:30)
[2020-12-02] MEDS ORDERED: VANCOMYCIN 750 MG in NA CHLORIDE 0.9% 250 ML IVPB SCH ×4 (22:00)
[2020-12-03 06:39] LABS: Absolute Lymphocytes (CBC) 0.6 K/uL (0.7-4.9); Basophils % 0.7 % (0-1.3); Hematocrit 23.6 % (36.0-45.0); Lymphocytes % 15.3 % (15.3-44.8); MPV 8.8 fL (7.6-11.3); RBC Red Blood Cell Count 2.18 M/uL (3.86-4.86)
[2020-12-03 07:02] LABS: Potassium 3.6 mmol/L (3.5-5.1)
[2020-12-03] MEDS: WATER FOR INJ,STERILE 1,000 ML with NA BICARB 8.4% 150 MEQ IV SCH ×4 (08:00→23:20)
[2020-12-03] MEDS: PANTOPRAZOLE 40MG TABLET PO SCH (08:15)
[2020-12-03] MEDS: Rifaximin 550 MG Tab PO SCH ×2 (09:00→21:55)
[2020-12-03] MEDS: METHYLPREDNISOLONE 125 MG INJ IV SCH ×2 (09:00→09:06)
[2020-12-03] MEDS: FOLIC ACID 1 MG, MULTIVITAMINS INJ 10 ML, THIAMINE HCL 100 MG in NA CHLORIDE 0.9% 1,000 ML IV SCH (09:00)
[2020-12-03] MEDS: HEPARIN 5000 UNIT/ML 1 ML VIAL SQ SCH ×2 (09:06→21:59)
[2020-12-03] MEDS: SODIUM BICARB 325 MG TAB PO SCH ×3 (09:06→21:55)
--- NOTE | 2020-12-03 12:58 | P.PN ---
Subjective Date of Service: 12/03/20 Chief Complaint: ARF Urine output remain poor. Patient is more awake but lethargic. No major changes from yesterday. Physical Examination - Vital Signs Temperature: 97 F Blood Pressure: 115/79 Pulse: 99 Respirations: 18 Pulse Ox (%): 98 - Physical Exam General: Confused, Other (Awake) HEENT: PERRLA, Scleral icterus Neck: JVD not distended Respiratory: Clear to auscultation bilaterally, Normal air movement Cardiovascular: No edema, Normal S1 S2, Other (Tachycardia) Gastrointestinal: Normal bowel sounds, Soft and benign, Non-distended, No tenderness Musculoskeletal: No swelling Integumentary: Other (Bilateral lower extremity venostasis dermatitis) Neurological: Other (Moves all extremities) Assessment And Plan - Current Problems (Diagnosis) (1) Acute metabolic encephalopathy Current Visit: Yes Status: Acute (2) Acute renal failure Current Visit: Yes Status: Acute (3) Sepsis Current Visit: No Status: Resolved Qualifiers: Sepsis type: sepsis due to unspecified organism Qualified Code(s): A41.9 - Sepsis, unspecified organism (4) Alcohol abuse Onset Date: 05/20/18 Current Visit: No Status: Chronic (5) Hepatic cirrhosis Onset Date: 06/30/17 Current Visit: No Status: Chronic Qualifiers: Hepatic cirrhosis type: alcoholic cirrhosis Ascites presence: without ascites Qualified Code(s): K70.30 - Alcoholic cirrhosis of liver without ascites (6) Hyponatremia Onset Date: 05/20/18 Current Visit: No Status: Resolved (7) Hypocalcemia Current Visit: Yes Status: Acute (8) Anemia Onset Date: 06/30/17 Current Visit: No Status: Acute Qualifiers: Anemia type: B12 deficiency Vitamin B12 deficiency anemia type: unspecified B12 deficiency Qualified Code(s): D51.9 - Vitamin B12 deficiency anemia, unspecified (9) Thrombocytopenia Current Visit: No Status: Acute - Plan Altered mental status improved. Sepsis resolved. Urine culture is growing ESBL E. coli Continue IV meropenem. Repeat blood culture is pending. 1st blood culture sample considered inadequate. AIDA secondary to hepatorenal syndrome and possibly prerenal from dehydration. Renal function slowly improving. Continue IV hydration. Nephrology input appreciated. Patient started on a trial of IV steroid for AIN. Nephrology is following. Bicarb replacement for metabolic acidosis. Monitor and replete electrolytes. Thrombocytopenia improved Monitor CBC Monitor and transfuse for hemoglobin less than 7.
--- NOTE | 2020-12-03 17:08 | P.PN ---
Subjective Date of Service: 12/03/20 Chief Complaint: ARF Subjective: No new changes Review of Systems General: Unremarkable Eyes: Unremarkable ENT: Unremarkable Respiratory: Unremarkable Cardiovascular: Unremarkable Genitourinary: Unremarkable Integumentary: Unremarkable Neurological: Unremarkable Physical Examination - Vital Signs Temperature: 97 F Blood Pressure: 115/79 Pulse: 99 Respirations: 18 Pulse Ox (%): 98 - Physical Exam General: Alert, Oriented x3 HEENT: Atraumatic, Normocephalic Neck: Supple Respiratory: Normal air movement Cardiovascular: Regular rate/rhythm, Normal S1 S2 Gastrointestinal: Soft and benign Musculoskeletal: No swelling Neurological: Normal speech, Cranial nerves 3-12 intact Assessment And Plan - Plan 1. AIDA-AIDA is still persistently poor. her creatinine is 3.80. we have started steroid therapy for suspected AIN. we will continue to dose meds for eGFR and avoid nephrotoxins. discussed with at bedside today about plan of care and concerns for acute interstitial nephritis and trial of steroid. we will observe response to therapy and consider renal biopsy in am if no significant improvement in renal function. 2. Hyponatremia-sodium is now normal. we will follow BMP closely. 3. Hypomagnesemia-mag is now normal at 2.0. we will continue routine monitoring. 4. Hypokalemia-Potassium is now 4.2. we will monitor closely. 5. Hypotension-Resolved. we will follow trend of vitals. 6. Hypocalcemia- Low calcium but much improved since admission. we will follow trend closely. 7. Metabolic acidemia-Bicarb is still persistently low at 14. we will increase sodium bicarbonate dose to 1300mg PO TID. we will follow trend of bicarb closely.
[2020-12-03] MEDS: Meropenem 500 MG/100 ML BAG IV SCH (20:30)
[2020-12-03] MEDS ORDERED: HEPARIN 5000 UNIT/ML 1 ML VIAL ONE (22:17)
[2020-12-04 03:54] LABS: Potassium 3.4 mmol/L (3.5-5.1)
[2020-12-04 04:22] LABS: Absolute Lymphocytes (CBC) 0.6 K/uL (0.7-4.9); Basophils % 1.2 % (0-1.3); Hematocrit 21.6 % (36.0-45.0); Lymphocytes % 22.9 % (15.3-44.8); MPV 8.8 fL (7.6-11.3); RBC Red Blood Cell Count 2.01 M/uL (3.86-4.86)
[2020-12-04] MEDS ORDERED: POTASSIUM 25 MEQ EFFERV TAB PO ONE ×2 (06:00→07:00)
[2020-12-04] MEDS ORDERED: LIDOCAINE 1% 20 ML MDV ONE (08:07)
--- NOTE | 2020-12-04 08:15 | P.OP ---
Preoperative diagnosis: Need for Central IV Access Postoperative diagnosis: Need for Central IV Access Primary procedure: Placement of Central Venous Access Catheter Secondary procedure: Micro introducer used Anesthesia: Local 1% lidocaine Estimated blood loss: <5cc Specimen: none Findings: dark non-pulsatile blood returned Complications: None Implants: Triple Lumen central line Transferred to: Other (Floor Bed) Condition: Good
[2020-12-04] MEDS: SODIUM BICARB 325 MG TAB PO SCH ×3 (09:00→21:02)
--- NOTE | 2020-12-04 10:42 | RAD REPORT ---
EXAM DESCRIPTION: RAD - Chest Single View - 12/04/2020 9:00 am CLINICAL HISTORY: LEFT subclavian central line placed COMPARISON: Portable October 20 TECHNIQUE: AP portable chest image was obtained 12/04/2020 9:00 am . FINDINGS: Lungs are clear. Heart and vasculature are normal. No measurable pleural effusion and no p neumothorax. No acute bony abnormality seen. Left subclavian central line has been placed. Tip is at the atrial SVC junction. No abnormal bend or kink of the tubing. IMPRESSION: Left subclavian central line placement with the tip at the SVC atrial junction. No pneumothorax.
--- NOTE | 2020-12-04 11:32 | CON ---
Date of Consultation: 12/04/2020 Brief History Of Present Illness: The patient is a 70-year-old female with a past medical history fo r alcohol abuse, fatty steatotic liver, GERD, recurrent urinary tract infections, who returns with ge neralized weakness for approximately 1 week prior to her admission which was on 11/27/2020. She had worsening kidney function and anemia by report. As such, I was requested to place a central venous c atheter for central venous access for IV antibiotics as well as possible transfusions and other medic ation application. She has poor venous access. Past Medical History: Significant for alcohol abuse, tobacco abuse, GERD, history of multiple recurr ent urinary tract infections, malnutrition, steatosis of the liver. Past Surgical History: Includes esophageal dilatations, wrist surgery. Allergies: TO HYDROCODONE. Home Medications: Include Travatan, Protonix, folic acid, thiamine. Social History: She is , has 3 children. Does not work, but had a history of working in [employer]. She has a positive alcohol abuse history as well as tobacco abuse history. Family History: Significant for cancer in her mother, lung disease and emphysema in her father. Review of Systems: Ten-point review of systems other than HPI, denies. Physical Examination: Vital Signs: At the time of my examination; her BMI is 21.5, blood pressure 108/62, heart rate is 99 , respiratory rate 16, temperature 97.5, SpO2 99% on room air. General: She is awake, alert, and oriented. Psychiatric: She is conversive and appropriate; however, she has slow mentation. HEENT: She is otherwise normocephalic. Her sclerae were anicteric. Her mucous membranes were somew hat dry. Her oropharynx was clear, but she had dry membranes as described. Neck: Supple without JVD. Chest: Normal expansion and excursion. Cardiovascular: Regular rate and rhythm. Pulmonary: Clear to auscultation bilaterally. Abdomen: Soft. Extremities: Her skin was somewhat pale. No clubbing, cyanosis, edema. Laboratory Data: She had a laboratory exam reveals a white blood cell count of 2.7, hemoglobin 7.5, her hematocrit of 21.6, platelet count was 123. Her sodium 143, potassium 3.4, chloride 111, carbon dioxide 19, BUN 24, creatinine 3.5, her glucose was 105. She had imaging performed on her admission included a CT chest, abdomen and pelvis, officially read as small bilateral pleural effusions, trace pericardial effusions, small amount of ascites throughout the abdomen and pelvis, cholelithiasis with out evidence of cholecystitis. She also had a head CT performed on 11/28, officially read as mild ce rebral white matter disease most, likely chronic small vessel ischemia. She had an abdominal ultraso und on 11/27, officially read as cholelithiasis and a renal ultrasound on the same day on 11/27, offi cially read as grossly negative renal ultrasound. Assessment And Plan: This is a 70-year-old female, who comes in with multiple medical problems as de scribed, who is in need of central venous access. I have explained risks, benefits, and alternatives of placement of central venous catheter including, but not limited to bleeding, infection, damage to surrounding tissues, injury to blood vessels, bloo d clots, pneumothorax, collapsed lung, need for further operations and procedures. The patient agree s to proceed as indicated. Thank you for this interesting consult. SIDNEY/BIJU Voice ID: [id number] Report ID: [id number]
--- NOTE | 2020-12-04 11:35 | OP ---
Date of Procedure: 12/04/2020 Surgeon: Abel Cueva MD, Preoperative Diagnosis: Need for central venous access. Postoperative Diagnosis: Need for central venous access. Procedure Performed: Placement of central venous access catheter in the left subclavian position. Anesthesia: Local 1% lidocaine used. Microintroducer set used. Estimated Blood Loss: Less than 5 mL. Specimen: None. Findings: Dark nonpulsatile blood returned. Complications: None. Implants: Triple-lumen central venous catheter in left subclavian position. Disposition: The patient remained on floor bed in good condition throughout the procedure. Procedure In Detail: After informed consent was obtained, the patient was prepped and draped in the usual sterile fashion after adequate anesthesia achieved using anatomic landmarks in the area of the left subclavian vein. I used a microintroducer needle to cannulate the left subclavian vein on the f irst attempt without evidence of complication. The microwire was advanced without any issue. The ne edle was removed at this point. I made a small pete incision overlying the wire insertion site after appropriately anesthetizing the skin. I then placed a microintroducer sheath and removed the microw sophie at this point. I then advanced a standard wire after removing the inner cannula of the introduce r sheath and the standard wire advanced easily without evidence of complication. I then performed se quential dilatation using Seldinger technique and advanced the catheter over the wire at this point, removed the wire through the brown port without evidence of complication. The catheter was in good p osition. I then withdrew and flushed quite easily through all 3 ports. I then secured the catheter to the skin and placed a sterile dressing over the top. The patient tolerated the procedure well wit hout evidence of complication and remained in good condition in the floor bed throughout the procedur e. All counts were correct at the end of the case. A stat chest x-ray will be performed. SIDNEY/BIJU Voice ID: [id number] Report ID: [id number]
[2020-12-04] MEDS: PANTOPRAZOLE 40MG TABLET PO SCH (11:55)
[2020-12-04] MEDS: Rifaximin 550 MG Tab PO SCH ×2 (11:55→21:03)
[2020-12-04] MEDS: WATER FOR INJ,STERILE 1,000 ML with NA BICARB 8.4% 150 MEQ IV SCH ×2 (12:54)
[2020-12-04] MEDS: FOLIC ACID 1 MG, MULTIVITAMINS INJ 10 ML, THIAMINE HCL 100 MG in NA CHLORIDE 0.9% 1,000 ML IV SCH (12:55)
[2020-12-04] MEDS: METHYLPREDNISOLONE 125 MG INJ IV SCH (13:13)
--- NOTE | 2020-12-04 13:59 | P.PN ---
Subjective Date of Service: 12/04/20 Chief Complaint: ARF Patient is more awake today. Urine output is better, about 350 mL out over the past 24 hours. Central line placed last night because patient lost IV access. Serum creatinine is trending down slowly. Physical Examination - Vital Signs Temperature: 97.5 F Blood Pressure: 108/62 Pulse: 99 Respirations: 16 Pulse Ox (%): 99 - Physical Exam General: Confused, Other (Awake) HEENT: PERRLA, Mucous membr. moist/pink, Scleral icterus Neck: JVD not distended Respiratory: Clear to auscultation bilaterally, Normal air movement Cardiovascular: No edema, Normal S1 S2, Other (Tachycardia) Gastrointestinal: Normal bowel sounds, Soft and benign, Non-distended, No tenderness Musculoskeletal: No swelling, No contractures Integumentary: No rashes, No erythema Neurological: Other (No focal motor deficit.) Urinary: Valdez catheter Assessment And Plan - Current Problems (Diagnosis) (1) Acute metabolic encephalopathy Current Visit: Yes Status: Acute (2) Acute renal failure Current Visit: Yes Status: Acute (3) Sepsis Current Visit: No Status: Resolved Qualifiers: Sepsis type: sepsis due to unspecified organism Qualified Code(s): A41.9 - Sepsis, unspecified organism (4) Alcohol abuse Onset Date: 05/20/18 Current Visit: No Status: Chronic (5) Hepatic cirrhosis Onset Date: 06/30/17 Current Visit: No Status: Chronic Qualifiers: Hepatic cirrhosis type: alcoholic cirrhosis Ascites presence: without ascites Qualified Code(s): K70.30 - Alcoholic cirrhosis of liver without ascites (6) Hyponatremia Onset Date: 05/20/18 Current Visit: No Status: Resolved (7) Hypocalcemia Current Visit: Yes Status: Acute (8) Anemia Onset Date: 06/30/17 Current Visit: No Status: Acute Qualifiers: Anemia type: B12 deficiency Vitamin B12 deficiency anemia type: unspecified B12 deficiency Qualified Code(s): D51.9 - Vitamin B12 deficiency anemia, unspecified (9) Thrombocytopenia Current Visit: No Status: Acute - Plan Altered mental status improved. Patient still confused. Sepsis resolved. Urine culture: ESBL E. coli On IV meropenem. Repeat blood culture: No growth to date. AIDA secondary to hepatorenal syndrome and possibly prerenal from dehydration. Renal function slowly improving. Continue IV hydration. Nephrology input appreciated. Patient started on a trial of IV steroid for AIN. Nephrology is following and titrating steroid. Bicarb replacement for metabolic acidosis. Monitor and replete electrolytes. Thrombocytopenia improved. Hemoglobin dropped to 7.5. Monitor CBC Transfuse for hemoglobin less than 7. PT evaluation.
[2020-12-04 15:58] LABS: Alpha Fetoprotein-Tumor Marker 7.6 ng/mL (<6.1)
[2020-12-04 19:18] LABS: HBsAG Nonreactive (Nonreactive)
[2020-12-04] MEDS: Meropenem 500 MG/100 ML BAG IV SCH (20:56)
[2020-12-04] MEDS: ENSURE ENLIVE 237 ML CAN PO SCH (20:57)
[2020-12-05] MEDS: WATER FOR INJ,STERILE 1,000 ML with NA BICARB 8.4% 150 MEQ IV SCH ×4 (03:26→21:20)
[2020-12-05 06:35] LABS: Absolute Lymphocytes (CBC) 0.4 K/uL (0.7-4.9); Basophils % 0.6 % (0-1.3); Hematocrit 24.1 % (36.0-45.0); Lymphocytes % 14.2 % (15.3-44.8); MPV 8.7 fL (7.6-11.3); RBC Red Blood Cell Count 2.25 M/uL (3.86-4.86)
[2020-12-05 07:15] LABS: Anisocytosis 1+; Blood Morphology Comment NOTED (NOT SEEN); Macrocytosis 1+; Platelet Estimate DECR; White Blood Cell Scan OK (OK)
[2020-12-05 07:17] LABS: Albumin 2.4 g/dL (3.4-5.0); Bilirubin Total 1.7 mg/dL (0.2-1.0); C-Reactive Protein 7.2 mg/L (<3.00); Protein, Total 5.4 g/dL (6.4-8.2)
[2020-12-05] MEDS: FOLIC ACID 1 MG, MULTIVITAMINS INJ 10 ML, THIAMINE HCL 100 MG in NA CHLORIDE 0.9% 1,000 ML IV SCH (08:55)
[2020-12-05] MEDS: SODIUM BICARB 325 MG TAB PO SCH ×3 (08:59→20:35)
[2020-12-05] MEDS: METHYLPREDNISOLONE 125 MG INJ IV SCH (08:59)
[2020-12-05] MEDS: PANTOPRAZOLE 40MG TABLET PO SCH (09:00)
[2020-12-05] MEDS: ENSURE ENLIVE 237 ML CAN PO SCH ×2 (09:01→20:35)
[2020-12-05 09:47] LABS: Magnesium 1.6 mg/dL (1.8-2.4); Phosphorus 2.8 mg/dL (2.5-4.9)
[2020-12-05] MEDS ORDERED: MAGNESIUM SULFATE 1 gm IVPB 1 GM/100 ML BAG IV ONE ×2 (09:58→15:00)
[2020-12-05] MEDS: Rifaximin 550 MG Tab PO SCH ×2 (11:25→20:35)
[2020-12-05] MEDS ORDERED: Magnesium Sulfate 2gm IVPB 2 G/50 ML BAG IV ONE (12:17)
--- NOTE | 2020-12-05 12:17 | P.PN ---
Subjective Date of Service: 12/05/20 Chief Complaint: ARF Subjective: No new changes, Improving Physical Examination - Vital Signs Temperature: 97.4 F Blood Pressure: 129/59 Pulse: 95 Respirations: 20 Pulse Ox (%): 98 - Physical Exam General: Alert, Oriented x3 HEENT: Atraumatic, Normocephalic Neck: Supple Respiratory: Clear to auscultation bilaterally Cardiovascular: Regular rate/rhythm, Normal S1 S2 Gastrointestinal: Soft and benign Assessment And Plan - Plan 1. AIDA-AIDA is improving. her creatinine is 2.99 we have completed steroid loading, we will start tapering dose. we will continue to dose meds for eGFR and avoid nephrotoxins. discussed with at bedside today about plan of care and concerns for acute interstitial nephritis and trial of steroid. we will observe response to therapy and consider renal biopsy in am if no significant improvement in renal function. 2. Hyponatremia-sodium is now normal. we will follow BMP closely. 3. Hypomagnesemia-mag is 1.6 today. we will replete. we will continue routine monitoring. 4. Hypokalemia-Potassium is now 4.0. we will monitor closely. 5. Hypotension-Resolved. we will follow trend of vitals. 6. Hypocalcemia- Low calcium but much improved since admission. we will follow trend closely. 7. Metabolic acidemia-Bicarb is now normal at 23. we will continue sodium bicar tablets at 650mg PO BID for now. we will follow trend of bicarb closely. Discharge Plan: Home
--- NOTE | 2020-12-05 12:40 | P.CNS ---
Date of Consult: 12/05/20 Chief Complaint: ARF History of Present Illness: Patient is 70-year-old female with a past medical history of cirrhosis to fatty liver, alcohol abuse, GERD, history of frequent urinary tract infections, leukopenia, and acute kidney injury who presented to the emergency department due to generalized weakness not having gone on for about 1 week. Associated symptoms include nausea, vomiting, fatigue. Urinary culture performed on 11/28 grew E coli day ESBL. Patient started on meropenem on 12/01. Patient will need a total antibiotic duration 7 days. Patient currently denies any nausea, vomiting, diarrhea, shortness breath, chest pain. 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 She has 3 children. 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 She works as a tax filer. - Family History Mother Medical History: Cancer Father Medical History: Lung disease Notes: emphysema - Social History Smoking Status: Unknown if ever smoked Alcohol use: Yes CD- Drugs: No Caffeine use: No Place of Residence: Home Review of Systems 10-point ROS is otherwise unremarkable Physical Examination Temp Pulse Resp BP Pulse Ox 97.4 F 95 H 20 129/59 L 98 12/05/20 12:19 12/05/20 12:19 12/05/20 12:19 12/05/20 12:19 12/05/20 12:19 General: Alert, In no apparent distress HEENT: Atraumatic, Normocephalic Neck: Supple, 2+ carotid pulse no bruit, Other (Left central line) Respiratory: Clear to auscultation bilaterally, Normal air movement Cardiovascular: No edema Capillary refill: <2 Seconds Gastrointestinal: Normal bowel sounds Musculoskeletal: No clubbing, No swelling Integumentary: No rashes, No breakdown Urinary: Valdez catheter Temp Pulse Resp BP Pulse Ox 97.4 F 95 H 20 129/59 L 98 12/05/20 12:19 12/05/20 12:19 12/05/20 12:19 12/05/20 12:19 12/05/20 12:19 Conclusions/Impression: Antibiotics: Meropenem Start: 12/01 Stop: 12/08 Assessment: ESBL E urinary tract infection Leukopenia Acute kidney injury Cirrhosis Anemia Plan: Continue meropenem for a total antibiotic duration of 7 days. Valdez catheter placed. Patient started on pro biotics. Medical management per primary team continue monitor CBC and BMP Continue to monitor for signs infection Plan of care discussed with Dr. Tomas Thank you for consultation.
--- NOTE | 2020-12-05 16:59 | P.PN ---
Subjective Date of Service: 12/05/20 Chief Complaint: ARF Subjective: Improving (feels better today, remains confused, pleasant, denies new complaints) Physical Examination - Vital Signs Temperature: 97.4 F Blood Pressure: 129/59 Pulse: 95 Respirations: 20 Pulse Ox (%): 98 Assessment & Plan Physician Review Additional Text: Physical Exam General: AAOx2, Confused, pleasant HEENT: PERRLA, Mucous membr. moist/pink, mild Scleral icterus Respiratory: Clear to auscultation bilaterally, Normal air movement Cardiovascular: No edema, Normal S1 S2, Tachycardia Gastrointestinal: Normal bowel sounds, Soft and benign, Non-distended, No tenderness Musculoskeletal: No swelling, No contractures Integumentary: No rashes, No erythema Urinary: Valdez catheter Assessment And Plan Acute metabolic encephalopathy Acute renal failure Sepsis secondary to ESBL E coli (UTI) h/o alcohol abuse Hepatic cirrhosis Hyponatremia Hypercalcemia Anemia Thrombocytopenia -mental status slowly improving, still remains with some confusion -sepsis resolved, urine culture growing ESBL E. coli, ID was consulted and recommend 7 days of meropenem. Blood cultures remained negative. -patient did lose IV access and missed 2 days of IV antibiotics. Central line was placed on 12/04, date to of meropenem -AIDA possibly ATN vs AIN, prerenal; nephrology consulted and assisting with management; renal function improving -pancytopenia, somewhat improved, monitor Hgb, no evidence of bleed -transfuse for Hgb <7.0 -PT consulted- pt has not gotten out of bed -continue home medications Code:full Dispo: discussed with -agrees that patient is too weak to go home. agreeable to SNF SW/CM consulted Time Spent Managing Pts Care (In Minutes): 35
[2020-12-05] MEDS ORDERED: POTASSIUM CL SA 10 MEQ TAB PO ONE (19:59)
[2020-12-05] MEDS: LACTOBACILLUS/ACIDOPHILUS TAB PO SCH (20:35)
[2020-12-05] MEDS: Meropenem 500 MG/100 ML BAG IV SCH (20:36)
[2020-12-06] MEDS: WATER FOR INJ,STERILE 1,000 ML with NA BICARB 8.4% 150 MEQ IV SCH ×4 (00:38→12:40)
[2020-12-06 05:54] LABS: Absolute Lymphocytes (CBC) 0.3 K/uL (0.7-4.9); Basophils % 0.5 % (0-1.3); Lymphocytes % 10.9 % (15.3-44.8); MPV 8.2 fL (7.6-11.3); RBC Red Blood Cell Count 1.94 M/uL (3.86-4.86)
[2020-12-06 06:11] LABS: ALT/SGPT 25 U/L (12-78); AST/SGOT 39 U/L (15-37); Albumin 2.1 g/dL (3.4-5.0); Alkaline Phosphatase 106 U/L (45-117); BUN Blood Urea Nitrogen 27 mg/dL (7-18); Bicarbonate 27 mmol/L (21-32); Bilirubin Direct 1.2 mg/dL (0-0.2); Bilirubin Total 1.5 mg/dL (0.2-1.0); Glucose Level 120 mg/dL (74-106); Magnesium 1.8 mg/dL (1.8-2.4); Potassium 3.3 mmol/L (3.5-5.1); Protein, Total 4.7 g/dL (6.4-8.2); Sodium Level 141 mmol/L (136-145)
[2020-12-06 06:12] LABS: C-Reactive Protein < 2.90 mg/L (<3.00)
[2020-12-06 06:59] LABS: Anisocytosis 1+; Blood Morphology Comment NOTED (NOT SEEN); Macrocytosis 2+; Platelet Estimate DECR; White Blood Cell Scan OK (OK)
[2020-12-06] MEDS: FOLIC ACID 1 MG, MULTIVITAMINS INJ 10 ML, THIAMINE HCL 100 MG in NA CHLORIDE 0.9% 1,000 ML IV SCH (09:00)
[2020-12-06] MEDS ORDERED: MAGNESIUM SULFATE 1 gm IVPB 1 GM/100 ML BAG IV ONE (09:00)
[2020-12-06] MEDS ORDERED: POTASSIUM 25 MEQ EFFERV TAB PO ONE (09:00)
[2020-12-06] MEDS: LACTOBACILLUS/ACIDOPHILUS TAB PO SCH ×2 (09:39→20:03)
[2020-12-06] MEDS: SODIUM BICARB 325 MG TAB PO SCH ×3 (09:39→20:03)
[2020-12-06] MEDS: PANTOPRAZOLE 40MG TABLET PO SCH (09:40)
[2020-12-06] MEDS: Rifaximin 550 MG Tab PO SCH ×2 (09:41→20:03)
[2020-12-06] MEDS: ENSURE ENLIVE 237 ML CAN PO SCH ×2 (09:44→20:04)
--- NOTE | 2020-12-06 10:21 | P.PN ---
Subjective Date of Service: 12/06/20 Chief Complaint: ARF Subjective: Improving Patient seen examined at bedside, no acute events are past 24 hr. Continue to monitor H&H. Platelet count still low however is up trending. Review of Systems 10-point ROS is otherwise unremarkable Physical Examination - Vital Signs Temperature: 97.8 F Blood Pressure: 106/58 Pulse: 88 Respirations: 18 Pulse Ox (%): 94 Assessment And Plan - Plan General: Alert, In no apparent distress HEENT: Atraumatic, Normocephalic Neck: Supple, 2+ carotid pulse no bruit, Other (Left central line) Respiratory: Clear to auscultation bilaterally, Normal air movement Cardiovascular: No edema Capillary refill: <2 Seconds Gastrointestinal: Normal bowel sounds Musculoskeletal: No clubbing, No swelling Integumentary: No rashes, No breakdown Urinary: Valdez catheter Antibiotics: Meropenem Start: 12/01 Stop: 12/08 Assessment: -ESBL E coli urinary tract infection -Leukopenia -thrombocytopenia -Acute kidney injury -Cirrhosis -Anemia Plan: -Continue meropenem for a total antibiotic duration of 7 days. Valdez catheter placed. Patient started on pro biotics. -Medical management per primary team -continue to monitor H&H. -continue monitor CBC and BMP -Continue to monitor for signs infection Plan of care discussed with Dr. Tomas Thank you for consultation. Physician Review Additional Text: Physical Exam General: AAOx2, Confused, pleasant HEENT: PERRLA, Mucous membr. moist/pink, mild Scleral icterus Respiratory: Clear to auscultation bilaterally, Normal air movement Cardiovascular: No edema, Normal S1 S2, Tachycardia Gastrointestinal: Normal bowel sounds, Soft and benign, Non-distended, No tenderness Musculoskeletal: No swelling, No contractures Integumentary: No rashes, No erythema Urinary: Valdez catheter Assessment And Plan Acute metabolic encephalopathy Acute renal failure Sepsis secondary to ESBL E coli (UTI) h/o alcohol abuse Hepatic cirrhosis Hyponatremia Hypercalcemia Anemia Thrombocytopenia -mental status slowly improving, still remains with some confusion -sepsis resolved, urine culture growing ESBL E. coli, ID was consulted and recommend 7 days of meropenem. Blood cultures remained negative. -patient did lose IV access and missed 2 days of IV antibiotics. Central line was placed on 12/04, date to of meropenem -AIDA possibly ATN vs AIN, prerenal; nephrology consulted and assisting with management; renal function improving -pancytopenia, somewhat improved, monitor Hgb, no evidence of bleed -transfuse for Hgb <7.0 -PT consulted- pt has not gotten out of bed -continue home medications Code:full Dispo: discussed with -agrees that patient is too weak to go home. agreeable to SNF SW/CM consulted
--- NOTE | 2020-12-06 14:44 | P.PN ---
Subjective Date of Service: 12/06/20 Chief Complaint: ARF Subjective: Improving (patient feeling ok this morning, reports generalized weakness, fatigued. with lower extremity swelling) Review of Systems 10-point ROS is otherwise unremarkable Physical Examination - Vital Signs Temperature: 97.2 F Blood Pressure: 109/47 Pulse: 94 Respirations: 18 Pulse Ox (%): 95 Assessment & Plan Physician Review Additional Text: Physical Exam General: AAOx2, Confused, but pleasant HEENT: Mucous membr. moist/pink, anicteric sclera Respiratory: Clear to auscultation bilaterally, Normal air movement Cardiovascular: 1-2+ BLE edema, Normal S1 S2, Tachycardia Gastrointestinal: Normal bowel sounds, Soft and benign, Non-distended, No tenderness Musculoskeletal: No contractures Integumentary: No rashes, No erythema Urinary: Valdez catheter in place Assessment And Plan Acute metabolic encephalopathy Acute renal failure Sepsis secondary to ESBL E coli (UTI) h/o alcohol abuse Hepatic cirrhosis Hyponatremia Hypercalcemia Anemia Thrombocytopenia -mental status slowly improving, still remains with some confusion, reports she has some baseline confusion/dementia -sepsis resolved, urine culture grew ESBL E. coli, ID was consulted and recommend 7 days of meropenem. Blood cultures remained negative. -patient did lose IV access and missed 2 days of IV antibiotics. Central line was placed on 12/04 -AIDA possibly ATN vs AIN, prerenal; nephrology consulted and assisting with management; renal function improving -patient now getting edematous, has low albumin, will dc banana bag, give vitamins PO, continue bicarb IV per nephrology -pancytopenia, somewhat improved -Hgb downtrending, no evidence of bleed, review anemia workup -transfuse for Hgb <7.0 -PT consulted- pt has not gotten out of bed -continue home medications Code:full Dispo: discussed with -agrees that patient is too weak to go home. agreeable to SNF SW/CM consulted advance care planning was reviewed with patient and for ~ 30 minutes. Would like to pursue SNF at this time, she has not ambulated since admission. Time Spent Managing Pts Care (In Minutes): 35
[2020-12-06] MEDS: Meropenem 500 MG/100 ML BAG IV SCH (20:03)
[2020-12-07 05:39] LABS: ALT/SGPT 24 U/L (12-78); AST/SGOT 41 U/L (15-37); Albumin 2.1 g/dL (3.4-5.0); Alkaline Phosphatase 99 U/L (45-117); BUN Blood Urea Nitrogen 29 mg/dL (7-18); Bicarbonate 31 mmol/L (21-32); Bilirubin Total 1.2 mg/dL (0.2-1.0); Glucose Level 105 mg/dL (74-106); Magnesium 1.9 mg/dL (1.8-2.4); Potassium 3.7 mmol/L (3.5-5.1); Protein, Total 4.3 g/dL (6.4-8.2); Sodium Level 141 mmol/L (136-145)
[2020-12-07 05:40] LABS: C-Reactive Protein < 2.90 mg/L (<3.00)
[2020-12-07 05:43] LABS: Absolute Lymphocytes (CBC) 0.6 K/uL (0.7-4.9); Basophils % 0.1 % (0-1.3); Lymphocytes % 23.1 % (15.3-44.8); MPV 8.7 fL (7.6-11.3); RBC Red Blood Cell Count 1.94 M/uL (3.86-4.86)
[2020-12-07 05:53] LABS: Hematocrit 20.9 % (36.0-45.0)
[2020-12-07] MEDS ORDERED: POTASSIUM 25 MEQ EFFERV TAB PO ONE (09:00)
[2020-12-07] MEDS: LACTOBACILLUS/ACIDOPHILUS TAB PO SCH ×2 (09:08→20:00)
[2020-12-07] MEDS: SODIUM BICARB 325 MG TAB PO SCH ×3 (09:08→19:59)
[2020-12-07] MEDS: FOLIC ACID 1 MG TABLET PO SCH (09:09)
[2020-12-07] MEDS: THIAMINE HCL 100 MG TABLET PO SCH (09:09)
[2020-12-07] MEDS: Rifaximin 550 MG Tab PO SCH ×2 (09:09→19:59)
[2020-12-07] MEDS: PANTOPRAZOLE 40MG TABLET PO SCH (09:09)
[2020-12-07] MEDS: ENSURE ENLIVE 237 ML CAN PO SCH ×2 (09:11→21:00)
[2020-12-07 09:22] LABS: RBC Red Blood Cell Count 1.96 M/uL (3.86-4.86)
--- NOTE | 2020-12-07 11:56 | P.PN ---
Subjective Date of Service: 12/07/20 Chief Complaint: ARF Patient seen examined at bedside, states she is having difficulty breathing. However lungs are clear to auscultation bilaterally, O2 stats are within normal range on room air. I asked the patient if she is having any anxiety and she stated yes because she is in the hospital. Review of Systems 10-point ROS is otherwise unremarkable Physical Examination - Vital Signs Temperature: 97.1 F Blood Pressure: 105/60 Pulse: 93 Respirations: 18 Pulse Ox (%): 96 - Studies Temp Pulse Resp BP Pulse Ox 97.1 F 93 H 18 105/60 96 12/07/20 08:00 12/07/20 08:00 12/07/20 08:00 12/07/20 08:00 12/07/20 08:00 Laboratory Last Values WBC 5.80 K/uL (4.3-10.9) D 11/27/20 13:00 RBC 2.71 M/uL (3.86-4.86) L 11/27/20 13:00 Hgb 10.1 g/dL (12.0-15.0) L 11/27/20 13:00 Hct 29.1 % (36.0-45.0) L 11/27/20 13:00 MCV 107.2 fL (80-100) H 11/27/20 13:00 MCH 37.2 pg (27.0-35.0) H 11/27/20 13:00 MCHC 34.7 g/dL (32.0-36.0) 11/27/20 13:00 RDW 16.3 % (12.1-15.2) H 11/27/20 13:00 Plt Count 119 K/uL (152-406) L D 11/27/20 13:00 MPV 9.1 fL (7.6-11.3) 11/27/20 13:00 Neutrophils % 79.9 % (41.7-73.7) H 11/27/20 13:00 Lymphocytes % 10.7 % (15.3-44.8) L 11/27/20 13:00 Monocytes % 8.6 % (3.3-12.3) 11/27/20 13:00 Eosinophils % 0.2 % (0-4.4) 11/27/20 13:00 Basophils % 0.6 % (0-1.3) 11/27/20 13:00 Absolute Neutrophils 4.7 K/uL (1.8-8.0) 11/27/20 13:00 Absolute Lymphocytes 0.6 K/uL (0.7-4.9) L 11/27/20 13:00 Absolute Monocytes 0.5 K/uL (0.1-1.3) 11/27/20 13:00 Absolute Eosinophils 0.0 K/uL (0-0.5) 11/27/20 13:00 Absolute Basophils 0.0 K/uL (0-0.5) 11/27/20 13:00 Platelet Estimate Decr 11/27/20 13:00 Poikilocytosis 2+ 11/27/20 13:00 Morphology Comment Noted (NOT SEEN) 11/27/20 13:00 Sodium 125 mmol/L (136-145) L 11/27/20 13:00 Potassium 3.0 mmol/L (3.5-5.1) L 11/27/20 13:00 Chloride 90 mmol/L (98-107) L 11/27/20 13:00 Carbon Dioxide 23 mmol/L (21-32) 11/27/20 13:00 BUN 6 mg/dL (7-18) L 11/27/20 13:00 Creatinine 4.57 mg/dL (0.55-1.3) H D 11/27/20 13:00 Estimated GFR 9 mL/min (=/>90) L 11/27/20 13:00 Glucose 110 mg/dL (74-106) H 11/27/20 13:00 Calcium 7.5 mg/dL (8.5-10.1) L 11/27/20 13:00 Total Bilirubin 6.2 mg/dL (0.2-1.0) H* 11/27/20 13:00 Direct Bilirubin 4.0 mg/dL (0-0.2) H 11/27/20 13:00 AST 77 U/L (15-37) H 11/27/20 13:00 ALT 17 U/L (12-78) 11/27/20 13:00 Alkaline Phosphatase 162 U/L (45-117) H 11/27/20 13:00 Ammonia 48 umol/L (19-54) 11/27/20 12:34 Serum Total Protein 5.4 g/dL (6.4-8.2) L 11/27/20 13:00 Albumin 2.5 g/dL (3.4-5.0) L 11/27/20 13:00 Globulin 2.9 g/dL (2.3-3.5) 11/27/20 13:00 Albumin/Globulin Ratio 0.9 (1.1-1.8) L 11/27/20 13:00 Lipase 27 U/L (73-393) L 11/27/20 13:00 SARS-CoV-2 RNA (RT-PCR) Negative (NEGATIVE) 11/27/20 15:45 Smear Scan Ok (OK) 11/27/20 13:00 Assessment And Plan - Plan General: Alert, In no apparent distress HEENT: Atraumatic, Normocephalic Neck: Supple, 2+ carotid pulse no bruit, Other (Left central line) Respiratory: Clear to auscultation bilaterally, Normal air movement Cardiovascular: No edema Capillary refill: <2 Seconds Gastrointestinal: Normal bowel sounds Musculoskeletal: No clubbing, No swelling Integumentary: No rashes, No breakdown Urinary: Valdez catheter Antibiotics: Meropenem Start: 12/01 Stop: 12/08 Assessment: -ESBL E coli urinary tract infection -Leukopenia -thrombocytopenia -Acute kidney injury -Cirrhosis -Anemia Plan: -Continue meropenem for a total antibiotic duration of 7 days. Valdez catheter placed. Patient started on pro biotics. -Medical management per primary team -continue to monitor H&H. -continue monitor CBC and BMP -Continue to monitor for signs infection Plan of care discussed with Dr. Tomas Thank you for consultation.
[2020-12-07 11:58] LABS: Hematocrit 21.6 % (36.0-45.0)
--- NOTE | 2020-12-07 16:06 | RAD REPORT ---
EXAM DESCRIPTION: RAD - Chest Single View - 12/07/2020 3:26 pm CLINICAL HISTORY: shortnes of breath COMPARISON: Portable December 04October 20 TECHNIQUE: AP portable chest image was obtained 12/07/2020 3:26 pm . FINDINGS: Lungs are clear. Heart and vasculature are normal. No measurable pleural effusion and no p neumothorax. No acute bony abnormality seen. No acute aortic finding. No change in positioning of the left subclavian central line. IMPRESSION: No acute cardiopulmonary process. No significant change from comparison study.
--- NOTE | 2020-12-07 16:08 | P.PN ---
Subjective Date of Service: 12/07/20 Chief Complaint: ARF Subjective: No new changes Physical Examination - Vital Signs Temperature: 97.8 F Blood Pressure: 97/53 Pulse: 96 Respirations: 18 Pulse Ox (%): 95 - Physical Exam General: In no apparent distress, Cooperative HEENT: Atraumatic, Normocephalic, PERRLA Neck: Supple, 2+ carotid pulse no bruit, JVD not distended Respiratory: Clear to auscultation bilaterally, Normal air movement, Crackles/rales Cardiovascular: Normal pulses, Regular rate/rhythm, Normal S1 S2 Gastrointestinal: Normal bowel sounds, Soft and benign, Distended, Ascites Musculoskeletal: Swelling Integumentary: No rashes, No breakdown Neurological: Normal gait, Normal speech, Normal strength at 5/5 x4 extr External genitalia: No edema Assessment And Plan Physician Review Additional Text: Physical Exam General: AAOx2, Confused, but pleasant HEENT: Mucous membr. moist/pink, anicteric sclera Respiratory: coarse creps b/l , Normal air movement Cardiovascular: 1-2+ BLE edema, Normal S1 S2, Tachycardia Gastrointestinal: Normal bowel sounds, Soft and benign, Non-distended, No tenderness Musculoskeletal: 2+ pedal edema , No contractures Integumentary: No rashes, No erythema Urinary: Valdez catheter in place Assessment And Plan Acute metabolic encephalopathy Acute renal failure Sepsis secondary to ESBL E coli (UTI) h/o alcohol abuse Hepatic cirrhosis Hyponatremia Hypercalcemia Anemia Thrombocytopenia Ascities , Fluid overload PLAN - creatinine improving to 2.16 - dose Albumin 25g IV q6h and start lasix for fluid overload - Start k -Effer - Transfuse for Hgb <7.0
--- NOTE | 2020-12-07 16:33 | P.PN ---
Subjective Date of Service: 12/07/20 Chief Complaint: ARF Subjective: No new changes (feels fine when sitting/laying, but dyspneic /easily fatigued with minimal exertion. swelling remains same, borderline tachycardic) Review of Systems 10-point ROS is otherwise unremarkable Physical Examination - Vital Signs Temperature: 97.8 F Blood Pressure: 97/53 Pulse: 96 Respirations: 18 Pulse Ox (%): 95 Assessment & Plan Physician Review Additional Text: Physical Exam General: AAOx2 HEENT: Mucous membr. moist/pink, anicteric sclera Respiratory: Clear to auscultation bilaterally, Normal air movement Cardiovascular: 1-2+ BLE edema, Normal S1 S2, Tachycardia Gastrointestinal: Soft and benign, Non-distended, No tenderness Musculoskeletal: No contractures Integumentary: No rashes, No erythema Urinary: Valedz catheter in place Assessment And Plan Acute metabolic encephalopathy Acute renal failure Sepsis secondary to ESBL E coli (UTI) h/o alcohol abuse Hepatic cirrhosis Hyponatremia Hypercalcemia Anemia Thrombocytopenia -mental status seems to be at baseline, still remains with some confusion, reports she has some baseline confusion/dementia -sepsis resolved, urine culture grew ESBL E. coli, ID was consulted and recommend 7 days of meropenem. Blood cultures remained negative. -patient did lose IV access and missed 2 days of IV antibiotics. Central line was placed on 12/04 -AIDA possibly ATN vs AIN, prerenal; nephrology consulted and assisting with management; renal function improving -patient now edematous, has low albumin, dc'd IVF on 12/06, will discuss with nep hrology - albumin/lasix usage -pt SOB, pale, and borderline tachycardic, anemic, will transfuse 1u PRBC -pancytopenia, somewhat improved -transfuse for Hgb <7.0 -PT consulted- pt has not gotten out of bed -continue home medications Code:full Dispo: discussed with -agrees that patient is too weak to go home. agreeable to SNF SW/CM consulted advance care planning was reviewed with patient and for ~ 30 minutes. Would like to pursue SNF at this time, she has not ambulated since admission. Time Spent Managing Pts Care (In Minutes): 35
[2020-12-07] MEDS: ALBUMIN HUMAN 25% 100 ML IV SCH ×2 (18:30→23:00)
[2020-12-07] MEDS: FUROSEMIDE 40 MG/4 ML VIAL IV SCH (18:34)
[2020-12-07] MEDS: Meropenem 500 MG/100 ML BAG IV SCH (19:59)
[2020-12-07 21:49] LABS: Hematocrit 23.3 % (36.0-45.0)
[2020-12-08] MEDS: ALBUMIN HUMAN 25% 100 ML IV SCH ×2 (05:00→11:00)
[2020-12-08 05:38] LABS: Absolute Lymphocytes (CBC) 0.5 K/uL (0.7-4.9); Basophils % 0.2 % (0-1.3); Hematocrit 21.1 % (36.0-45.0); Lymphocytes % 27.1 % (15.3-44.8); MPV 8.7 fL (7.6-11.3); RBC Red Blood Cell Count 2.05 M/uL (3.86-4.86)
[2020-12-08 05:50] LABS: Potassium 3.4 mmol/L (3.5-5.1)
[2020-12-08] MEDS: KCL 20 MEQ/100 mL IVPB 20 MEQ/100 ML BAG IV SCH ×2 (07:33→10:06)
[2020-12-08] MEDS: FUROSEMIDE 40 MG/4 ML VIAL IV SCH ×2 (10:02→17:46)
[2020-12-08] MEDS: SODIUM BICARB 325 MG TAB PO SCH ×3 (10:03→20:17)
[2020-12-08] MEDS: PANTOPRAZOLE 40MG TABLET PO SCH (10:03)
[2020-12-08] MEDS: LACTOBACILLUS/ACIDOPHILUS TAB PO SCH ×2 (10:03→20:17)
[2020-12-08] MEDS: FOLIC ACID 1 MG TABLET PO SCH (10:04)
[2020-12-08] MEDS: THIAMINE HCL 100 MG TABLET PO SCH (10:05)
[2020-12-08] MEDS: ENSURE ENLIVE 237 ML CAN PO SCH ×2 (10:06→20:16)
[2020-12-08 10:21] LABS: Blood Morphology Comment NOT SEEN (NOT SEEN); Platelet Estimate DECR
--- NOTE | 2020-12-08 10:57 | P.PN ---
Subjective Date of Service: 12/08/20 Chief Complaint: ARF Subjective: Other (hgb back down to 7.2, no evidence of bleed. pt reports chest heaviness - feels like someone is standing on chest this morning. difficult to take a deep breath swelling is slightly improved) Review of Systems 10-point ROS is otherwise unremarkable Physical Examination - Vital Signs Temperature: 97.7 F Blood Pressure: 116/55 Pulse: 93 Respirations: 20 Pulse Ox (%): 98 Assessment & Plan Physician Review Additional Text: Physical Exam General: AAOx3 HEENT: Mucous membr. moist/pink, anicteric sclera Respiratory: Clear to auscultation bilaterally, Normal air movement, shallow respirations Cardiovascular: 2+ BLE edema in thighs, pitting edema in abdominal wall, Normal S1 S2, Tachycardia Gastrointestinal: mild distention, edematous abd wall Musculoskeletal: No contractures Integumentary: No rashes, No erythema Urinary: Valdez catheter in place Assessment And Plan Acute metabolic encephalopathy secondary to UTI Acute renal failure Sepsis secondary to ESBL E coli (UTI) h/o alcohol abuse Hepatic cirrhosis Hyponatremia Hypercalcemia Anemia Thrombocytopenia Chest Heaviness -mental status seems to be at baseline per -sepsis resolved, urine culture grew ESBL E. coli, ID was consulted and recommend 7 days of meropenem. Blood cultures remained negative. -patient did lose IV access and missed 2 days of IV antibiotics. Central line was placed on 12/04 -AIDA possibly ATN vs AIN, prerenal; nephrology consulted and assisting with management; received significant IVF -patient now edematous, has low albumin, dc'd IVF on 12/06, started albumin/lasix on 12/07 for diuresis -renal function significantly improved, UOP starting to increase - was started on lasix on 12/07 by nephrology -pt SOB, pale, and borderline tachycardic, anemic on 12/07, transfused 1u PRBC -back down to low 7s, no obvious signs of bleeding. will obtain peripheral blood smear, LDH to complete workup -pancytopenia likely secondary to sepsis in setting of significant comorbidities - liver cirrhosis, alcoholic, acute renal failure -Heme/onc consulted -transfuse for Hgb <7.0 -PT consulted -continue home medications -Chest heaviness - pt now reporting this morning, will obtain stat troponin, EKG, echocardiogram -edema in abd likely also contributing to shallow respirations Code:full Dispo: discussed with -agrees that patient is too weak to go home. agreeable to SNF SW/CM consulted Time Spent Managing Pts Care (In Minutes): 45
--- NOTE | 2020-12-08 11:12 | P.PN ---
Subjective Date of Service: 12/08/20 Chief Complaint: ARF Patient seen examined at bedside, still having some difficulty breathing. Patient is fluid overload, cardiac workup in process. Review of Systems 10-point ROS is otherwise unremarkable Physical Examination - Vital Signs Temperature: 97.7 F Blood Pressure: 116/55 Pulse: 93 Respirations: 20 Pulse Ox (%): 98 - Studies Temp Pulse Resp BP Pulse Ox 97.7 F 93 H 20 116/55 L 98 12/08/20 10:57 12/08/20 10:57 12/08/20 10:57 12/08/20 10:57 12/08/20 10:57 Laboratory Last Values WBC 5.80 K/uL (4.3-10.9) D 11/27/20 13:00 RBC 2.71 M/uL (3.86-4.86) L 11/27/20 13:00 Hgb 10.1 g/dL (12.0-15.0) L 11/27/20 13:00 Hct 29.1 % (36.0-45.0) L 11/27/20 13:00 MCV 107.2 fL (80-100) H 11/27/20 13:00 MCH 37.2 pg (27.0-35.0) H 11/27/20 13:00 MCHC 34.7 g/dL (32.0-36.0) 11/27/20 13:00 RDW 16.3 % (12.1-15.2) H 11/27/20 13:00 Plt Count 119 K/uL (152-406) L D 11/27/20 13:00 MPV 9.1 fL (7.6-11.3) 11/27/20 13:00 Neutrophils % 79.9 % (41.7-73.7) H 11/27/20 13:00 Lymphocytes % 10.7 % (15.3-44.8) L 11/27/20 13:00 Monocytes % 8.6 % (3.3-12.3) 11/27/20 13:00 Eosinophils % 0.2 % (0-4.4) 11/27/20 13:00 Basophils % 0.6 % (0-1.3) 11/27/20 13:00 Absolute Neutrophils 4.7 K/uL (1.8-8.0) 11/27/20 13:00 Absolute Lymphocytes 0.6 K/uL (0.7-4.9) L 11/27/20 13:00 Absolute Monocytes 0.5 K/uL (0.1-1.3) 11/27/20 13:00 Absolute Eosinophils 0.0 K/uL (0-0.5) 11/27/20 13:00 Absolute Basophils 0.0 K/uL (0-0.5) 11/27/20 13:00 Platelet Estimate Decr 11/27/20 13:00 Poikilocytosis 2+ 11/27/20 13:00 Morphology Comment Noted (NOT SEEN) 11/27/20 13:00 Sodium 125 mmol/L (136-145) L 11/27/20 13:00 Potassium 3.0 mmol/L (3.5-5.1) L 11/27/20 13:00 Chloride 90 mmol/L (98-107) L 11/27/20 13:00 Carbon Dioxide 23 mmol/L (21-32) 11/27/20 13:00 BUN 6 mg/dL (7-18) L 11/27/20 13:00 Creatinine 4.57 mg/dL (0.55-1.3) H D 11/27/20 13:00 Estimated GFR 9 mL/min (=/>90) L 11/27/20 13:00 Glucose 110 mg/dL (74-106) H 11/27/20 13:00 Calcium 7.5 mg/dL (8.5-10.1) L 11/27/20 13:00 Total Bilirubin 6.2 mg/dL (0.2-1.0) H* 11/27/20 13:00 Direct Bilirubin 4.0 mg/dL (0-0.2) H 11/27/20 13:00 AST 77 U/L (15-37) H 11/27/20 13:00 ALT 17 U/L (12-78) 11/27/20 13:00 Alkaline Phosphatase 162 U/L (45-117) H 11/27/20 13:00 Ammonia 48 umol/L (19-54) 11/27/20 12:34 Serum Total Protein 5.4 g/dL (6.4-8.2) L 11/27/20 13:00 Albumin 2.5 g/dL (3.4-5.0) L 11/27/20 13:00 Globulin 2.9 g/dL (2.3-3.5) 11/27/20 13:00 Albumin/Globulin Ratio 0.9 (1.1-1.8) L 11/27/20 13:00 Lipase 27 U/L (73-393) L 11/27/20 13:00 SARS-CoV-2 RNA (RT-PCR) Negative (NEGATIVE) 11/27/20 15:45 Smear Scan Ok (OK) 11/27/20 13:00 Assessment And Plan - Plan General: Alert, In no apparent distress HEENT: Atraumatic, Normocephalic Neck: Supple, 2+ carotid pulse no bruit, Other (Left central line) Respiratory: Clear to auscultation bilaterally, Normal air movement Cardiovascular: No edema Capillary refill: <2 Seconds Gastrointestinal: Normal bowel sounds Musculoskeletal: No clubbing, No swelling Integumentary: No rashes, No breakdown Urinary: Valdez catheter Antibiotics: Meropenem Start: 12/01 Stop: 12/08 Assessment: -ESBL E coli urinary tract infection -Leukopenia -thrombocytopenia -Acute kidney injury -Cirrhosis -Anemia Plan: -Continue meropenem for a total antibiotic duration of 7 days. Valdez catheter placed. Patient started on pro biotics. -Medical management per primary team -continue to monitor H&H. -continue monitor CBC and BMP -Continue to monitor for signs infection Plan of care discussed with Dr. Tomas Thank you for consultation.
[2020-12-08] MEDS: Rifaximin 550 MG Tab PO SCH ×2 (11:28→20:17)
[2020-12-08] MEDS: hydrOXYzine HCL 25 MG TAB PO PRN (11:28)
--- NOTE | 2020-12-08 11:54 | EKG ---
Test Date: 2020-12-08 Test Time: 10:33:13 [employer]: ROB MEASUREMENT RESULTS: Intervals: Rate: 94 OH: 112 QRSD: 66 QT: 366 QTc: 457 [place]: P: 53 OH: 112 QRS: 16 T: 38 INTERPRETIVE STATEMENTS: Normal sinus rhythm Nonspecific T wave abnormality Abnormal ECG Compared to ECG 10/20/2020 12:58:42 Accelerated junctional rhythm no longer present Myocardial infarct finding no longer present Possible ischemia no longer present T-wave abnormality still present Electronically Signed On 12-08-20 11:53:54 CDT by Prabhjot Delcid
--- NOTE | 2020-12-08 12:41 | ECHO ---
HEIGHT: 5 ft 4 in WEIGHT: 125 lb 0 oz DATE OF STUDY: 12/08/[address]: Vick Melvin MD 2-DIMENSIONAL: YES M.MODE: YES DOPPLER: YES COLOR FLOW: YES TDS: NO PORTABLE: NO DEFINITY: NO BUBBLE STUDY: NO DIAGNOSIS: EVALUATE FUNCTION, SHORTNESS OF BREATH, HEAVINESS CARDIAC HISTORY: CATHERIZATION: NO SURGERY: NO PROSTHETIC VALVE: NO PACEMAKER: NO MEASUREMENTS (cm) DIASTOLIC (NORMALS) SYSTOLIC (NORMALS) IVSd 0.9 (0.6-1.2) LA Diam 2.8 (1.9-4.0) LVEF 71% LVIDd 3.7 (3.5-5.7) LVIDs 2.2 (2.0-3.5) %FS 40% LVPWd 1.0 (0.6-1.2) Ao Diam 2.3 (2.0-3.7) 2 DIMENSIONAL ASSESSMENT: RIGHT ATRIUM: NORMAL LEFT ATRIUM: NORMAL RIGHT VENTRICLE: NORMAL LEFT VENTRICLE: NORMAL TRICUSPID VALVE: NORMAL MITRAL VALVE: NORMAL PULMONIC VALVE: NORMAL AORTIC VALVE: NORMAL PERICARDIAL EFFUSION: NONE AORTIC ROOT: NORMAL LEFT VENTRICULAR WALL MOTION: NORMAL DOPPLER/COLOR FLOW: NORMAL COMMENTS: NORMAL 2D ECHOCARDIOGRAM WITH DOPPLER. NO WALL MOTION ABNORMALITY. NO EFFUSION. TECHNOLOGIST: Kaylen RYAN
--- NOTE | 2020-12-08 13:22 | P.PN ---
Subjective Date of Service: 12/08/20 Chief Complaint: ARF Subjective: No new changes (state SOB better) Physical Examination - Vital Signs Temperature: 97.7 F Blood Pressure: 116/55 Pulse: 93 Respirations: 20 Pulse Ox (%): 98 - Physical Exam General: Alert, In no apparent distress, Oriented x3 HEENT: Atraumatic, Normocephalic Neck: Supple, 2+ carotid pulse no bruit, JVD not distended Respiratory: Crackles/rales (improving ) Cardiovascular: Normal S1 S2, Edema (2) Gastrointestinal: Normal bowel sounds, Distended, Ascites Musculoskeletal: No clubbing, Swelling Integumentary: No rashes, No breakdown Neurological: Cranial nerves 3-12 intact Assessment And Plan Physician Review Additional Text: Physical Exam General: AAOx3 HEENT: Mucous membr. moist/pink, anicteric sclera Respiratory: Clear to auscultation bilaterally, Normal air movement, shallow respirations Cardiovascular: 2+ BLE edema in thighs, pitting edema in abdominal wall, Normal S1 S2, Tachycardia Gastrointestinal: mild distention, edematous abd wall Musculoskeletal: No contractures Integumentary: No rashes, No erythema Urinary: Valdez catheter in place Assessment And Plan Acute metabolic encephalopathy secondary to UTI Acute renal failure Sepsis secondary to ESBL E coli (UTI) h/o alcohol abuse Hepatic cirrhosis Hyponatremia Hypercalcemia Anemia Thrombocytopenia Chest Heaviness Nephrology Plan -volume status improving -prior cr improving to 1.67 -c/w lasix diuresis -continue albumin doses to avoid intravascular depletion and azotemia worsening - follow BMP today and daily - Relete k -will dc sodium bicarb tabs when serum bicarb above 25 continue other mgt - -mental status seems to be at baseline per -sepsis resolved, urine culture grew ESBL E. coli, ID was consulted and recommend 7 days of meropenem. Blood cultures remained negative. -patient did lose IV access and missed 2 days of IV antibiotics. Central line was placed on 12/04 -AIDA possibly ATN vs AIN, prerenal; nephrology consulted and assisting with management; received significant IVF -patient now edematous, has low albumin, dc'd IVF on 12/06, started albumin/lasix on 12/07 for diuresis -renal function significantly improved, UOP starting to increase - was started on lasix on 12/07 by nephrology -pt SOB, pale, and borderline tachycardic, anemic on 12/07, transfused 1u PRBC -back down to low 7s, no obvious signs of bleeding. will obtain peripheral blood smear, LDH to complete workup -pancytopenia likely secondary to sepsis in setting of significant comorbidities - liver cirrhosis, alcoholic, acute renal failure -Heme/onc consulted -transfuse for Hgb <7.0 -PT consulted -continue home medications -Chest heaviness - pt now reporting this morning, will obtain stat troponin, EKG, echocardiogram -edema in abd likely also contributing to shallow respirations Code:full Dispo: discussed with -agrees that patient is too weak to go home. agreeable to SNF SW/CM consulted
[2020-12-08] MEDS ORDERED: ALBUMIN HUMAN 25% 100 ML IV SCH (14:00)
[2020-12-08 14:48] LABS: Protime INR 1.45
[2020-12-08] MEDS: NA CHLORIDE 0.9% 250 ML IV SCH (20:08)
[2020-12-08] MEDS: Meropenem 500 MG/100 ML BAG IV SCH (20:08)
[2020-12-09] MEDS: ALBUMIN HUMAN 25% 100 ML IV SCH ×2 (01:08→14:00)
[2020-12-09] MEDS: NA CHLORIDE 0.9% 250 ML IV SCH ×2 (04:50→20:02)
[2020-12-09 05:12] LABS: Absolute Lymphocytes (CBC) 0.5 K/uL (0.7-4.9); Basophils % 0.6 % (0-1.3); Lymphocytes % 21.8 % (15.3-44.8); MPV 8.8 fL (7.6-11.3); RBC Red Blood Cell Count 1.98 M/uL (3.86-4.86)
[2020-12-09 05:18] LABS: Albumin 3.4 g/dL (3.4-5.0); Bilirubin Total 1.4 mg/dL (0.2-1.0); Magnesium 1.5 mg/dL (1.8-2.4); Potassium 3.6 mmol/L (3.5-5.1); Protein, Total 5.1 g/dL (6.4-8.2)
[2020-12-09 05:27] LABS: Hematocrit 20.5 % (36.0-45.0)
[2020-12-09] MEDS: PANTOPRAZOLE 40MG TABLET PO SCH (07:41)
[2020-12-09] MEDS ORDERED: Magnesium Sulfate 2gm IVPB 2 G/50 ML BAG IV ONE (09:00)
[2020-12-09] MEDS: ENSURE ENLIVE 237 ML CAN PO SCH ×2 (09:00→21:18)
[2020-12-09] MEDS ORDERED: KCL 20 MEQ/100 mL IVPB 20 MEQ/100 ML BAG IV SCH (09:00)
[2020-12-09] MEDS: Rifaximin 550 MG Tab PO SCH ×2 (10:50→21:18)
[2020-12-09] MEDS: THIAMINE HCL 100 MG TABLET PO SCH (10:51)
[2020-12-09] MEDS: SODIUM BICARB 325 MG TAB PO SCH ×3 (10:51→21:18)
[2020-12-09] MEDS: FUROSEMIDE 40 MG/4 ML VIAL IV SCH ×2 (10:52→17:41)
[2020-12-09] MEDS: LACTOBACILLUS/ACIDOPHILUS TAB PO SCH ×2 (10:59→21:18)
[2020-12-09] MEDS: FOLIC ACID 1 MG TABLET PO SCH (10:59)
--- NOTE | 2020-12-09 12:54 | P.PN ---
Subjective Date of Service: 12/09/20 Chief Complaint: ARF Subjective: Improving (feeling better this morning, no longer with chest heaviness/pressure. continues with slight shortness of breat with minimal movement. swelling minimall improved.) Review of Systems 10-point ROS is otherwise unremarkable Physical Examination - Vital Signs Temperature: 97.3 F Blood Pressure: 124/71 Pulse: 87 Respirations: 15 Pulse Ox (%): 94 Assessment & Plan Physician Review Additional Text: Physical Exam General: AAOx3, NAD HEENT: Mucous membr. moist/pink, anicteric sclera Respiratory: Clear to auscultation bilaterally, Normal air movement, shallow respirations Cardiovascular: 2+ BLE edema in thighs, pitting edema in abdominal wall, Normal S1 S2, regular rate/rhythm Gastrointestinal: mild distention, edematous abd wall Musculoskeletal: No contractures Integumentary: No rashes, No erythema Urinary: Valdez catheter in place Assessment And Plan Acute metabolic encephalopathy secondary to UTI Acute renal failure Sepsis secondary to ESBL E coli (UTI) DIC h/o alcohol abuse Hepatic cirrhosis Hyponatremia Hypercalcemia Anemia Thrombocytopenia Chest Heaviness -mental status seems to be at baseline per -sepsis resolved, urine culture grew ESBL E. coli, ID was consulted and recommend 7 days of meropenem. Blood cultures remained negative. -patient did lose IV access and missed 2 days of IV antibiotics. Central line was placed on 12/04 -AIDA possibly ATN vs AIN, prerenal; nephrology consulted and assisting with management; received significant IVF -patient now edematous, has low albumin, dc'd IVF on 12/06, started albumin/lasix on 12/07 for diuresis. -renal function, breathing, edema, improving -pt SOB, pale, and borderline tachycardic, anemic on 12/07, transfused 1u PRBC -pancytopenia, secondary to sepsis in setting of significant comorbidities - liver cirrhosis, alcoholic, acute renal failure -Heme/onc consulted -anemic, low fibrinogen, elevated d-dimer, consistent with a DIC picture, in settng of sepsis -patient without any bleeding / oozing -continue to trend/monitor -transfuse for Hgb <7.0 -PT consulted -continue home medications -Chest heaviness - resolved, EKG without signs of ischemia, trop negative Code:full Dispo: discussed with -agrees that patient is too weak to go home. agreeable to SNF SW/CM consulted. Patient approved for SNF anticipate discharge once hgb / DIC / edema improved/stable, likely in 2 days Time Spent Managing Pts Care (In Minutes): 35
[2020-12-09] MEDS: Meropenem 500 MG/100 ML BAG IV SCH (20:02)
[2020-12-09] MEDS ORDERED: MAGNESIUM SULFATE 1 gm IVPB 1 GM/100 ML BAG IV ONE (21:00)
[2020-12-10] MEDS: ALBUMIN HUMAN 25% 100 ML IV SCH ×2 (01:04→14:00)
[2020-12-10 04:56] LABS: Absolute Lymphocytes (CBC) 0.5 K/uL (0.7-4.9); Basophils % 0.6 % (0-1.3); Lymphocytes % 23.8 % (15.3-44.8); RBC Red Blood Cell Count 1.97 M/uL (3.86-4.86)
[2020-12-10 04:57] LABS: Magnesium 1.7 mg/dL (1.8-2.4); Potassium 3.4 mmol/L (3.5-5.1)
[2020-12-10 05:01] LABS: Hematocrit 20.5 % (36.0-45.0)
[2020-12-10 05:13] LABS: Protime INR 1.53
[2020-12-10] MEDS: KCL 20 MEQ/100 mL IVPB 20 MEQ/100 ML BAG IV SCH ×2 (05:50→10:20)
[2020-12-10] MEDS: ENSURE ENLIVE 237 ML CAN PO SCH ×2 (09:00→20:38)
[2020-12-10] MEDS ORDERED: MAGNESIUM SULFATE 1 gm IVPB 1 GM/100 ML BAG IV ONE (09:00)
[2020-12-10] MEDS: FUROSEMIDE 40 MG/4 ML VIAL IV SCH ×2 (10:15→17:34)
[2020-12-10] MEDS: FOLIC ACID 1 MG TABLET PO SCH (10:15)
[2020-12-10] MEDS: PANTOPRAZOLE 40MG TABLET PO SCH (10:15)
[2020-12-10] MEDS: LACTOBACILLUS/ACIDOPHILUS TAB PO SCH ×2 (10:15→20:38)
[2020-12-10] MEDS: THIAMINE HCL 100 MG TABLET PO SCH (10:19)
[2020-12-10] MEDS: SODIUM BICARB 325 MG TAB PO SCH ×2 (10:20→15:35)
[2020-12-10] MEDS: Rifaximin 550 MG Tab PO SCH ×2 (10:20→20:38)
--- NOTE | 2020-12-10 15:02 | P.PN ---
Subjective Date of Service: 12/10/20 Chief Complaint: ARF Subjective: Improving (Overall feeling better, does report some shortness of breath-feels like she can't fully expand her lungs. Urine output much improved, her renal function improved) Review of Systems 10-point ROS is otherwise unremarkable Physical Examination - Vital Signs Temperature: 97.4 F Blood Pressure: 111/67 Pulse: 95 Respirations: 18 Pulse Ox (%): 94 Assessment & Plan Physician Review Additional Text: Physical Exam General: AAOx3, NAD HEENT: Mucous membr. moist/pink, anicteric sclera Respiratory: Clear to auscultation bilaterally, Normal air movement, shallow respirations Cardiovascular: 2+ BLE edema in thighs, pitting edema in abdominal wall, +ascites, Normal S1 S2, regular rate/rhythm Gastrointestinal: +distention, edematous abd wall, nontender Musculoskeletal: No joint swelling Integumentary: No rashes, No erythema : Valdez catheter in place Assessment And Plan Acute metabolic encephalopathy secondary to UTI Acute renal failure Sepsis secondary to ESBL E coli (UTI) DIC Pancytopenia h/o alcohol abuse Hepatic cirrhosis Hyponatremia Hypercalcemia Chest Heaviness -mental status much improved - at baseline -sepsis resolved, urine culture grew ESBL E. coli, ID was consulted and recommend 7 days of meropenem. Blood cultures remained negative. -patient did lose IV access and missed 2 days of IV antibiotics. Central line was placed on 12/04 -AIDA possibly ATN vs AIN, prerenal; nephrology consulted and assisting with management; received significant IVF -patient now edematous, has low albumin, dc'd IVF on 12/06, started albumin/lasix on 12/07 for diuresis. -renal function improved significantly -UOP much improved as well, now diuresing well -pancytopenia, secondary to sepsis in setting of significant comorbidities - liver cirrhosis, alcoholic, acute renal failure -pt SOB, pale, and borderline tachycardic, anemic on 12/07, transfused 1u PRBC -Heme/onc consulted -anemic, low fibrinogen, elevated d-dimer, consistent with a DIC picture, in settng of sepsis -patient without any bleeding / oozing -continue to trend/monitor -transfuse for Hgb <7.0 -Hgb 7.0 today, will recheck this evening -PT consulted -continue home medications -Chest heaviness - resolved, EKG without signs of ischemia, trop negative Code:full Dispo: discussed with -agrees that patient is too weak to go home. agreeable to SNF SW/CM consulted. Patient approved for SNF anticipate discharge once hgb / DIC / edema improved/stable, likely in ~1-2 days Time Spent Managing Pts Care (In Minutes): 35
--- NOTE | 2020-12-10 15:29 | RAD REPORT ---
EXAM DESCRIPTION: RAD - Chest Single View - 12/10/2020 2:19 pm CLINICAL HISTORY: SOB COMPARISON: December 07 TECHNIQUE: AP portable chest image was obtained 12/10/2020 2:19 pm . FINDINGS: Lung volumes are low. No pulmonary edema or acute lung parenchymal process seen. Medial le ft base opacification superimposed on the heart is not substantially different from December 07 and believ ed to be the affects of the low lung volume. Interstitial pattern is accentuated due to shallow inspi ration. Left-sided Port-A-Cath is unchanged. Tip remains in the distal SVC. Heart and vasculature are normal. No measurable pleural effusion and no pneumothorax. No acute bony abnormality seen. No acute aortic findings suspected. IMPRESSION: Limited low lung volume examination without acute cardiopulmonary finding. Medial left base increased opacification is probably artifact of some atelectasis and pericardial fat . This can be monitored on a follow-up study as warranted. Optimal inspiratory effort from the patien t is encouraged.
[2020-12-10] MEDS: hydrOXYzine HCL 25 MG TAB PO PRN (15:35)
[2020-12-10] MEDS: Meropenem 500 MG/100 ML BAG IV SCH (20:36)
[2020-12-10] MEDS: NA CHLORIDE 0.9% 250 ML IV SCH (20:37)
[2020-12-10] MEDS ORDERED: KCL 20 MEQ/100 mL IVPB 20 MEQ/100 ML BAG IV ONE (21:00)
[2020-12-11 04:58] LABS: Absolute Lymphocytes (CBC) 0.5 K/uL (0.7-4.9); Basophils % 0.9 % (0-1.3); Hematocrit 21.8 % (36.0-45.0); Lymphocytes % 21.4 % (15.3-44.8); RBC Red Blood Cell Count 2.11 M/uL (3.86-4.86)
[2020-12-11 05:12] LABS: Albumin 3.5 g/dL (3.4-5.0); Bilirubin Total 1.8 mg/dL (0.2-1.0); Magnesium 1.5 mg/dL (1.8-2.4); Potassium 3.6 mmol/L (3.5-5.1)
[2020-12-11] MEDS ORDERED: Magnesium Sulfate 2gm IVPB 2 G/50 ML BAG IV ONE (05:48)
[2020-12-11] MEDS: ENSURE ENLIVE 237 ML CAN PO SCH ×2 (09:00→21:32)
[2020-12-11] MEDS ORDERED: KCL 20 MEQ/100 mL IVPB 20 MEQ/100 ML BAG IV SCH (09:00)
[2020-12-11] MEDS: FOLIC ACID 1 MG TABLET PO SCH (09:46)
[2020-12-11] MEDS: THIAMINE HCL 100 MG TABLET PO SCH (09:46)
[2020-12-11] MEDS: PANTOPRAZOLE 40MG TABLET PO SCH (09:46)
[2020-12-11] MEDS: LACTOBACILLUS/ACIDOPHILUS TAB PO SCH ×2 (09:46→21:31)
[2020-12-11] MEDS: FUROSEMIDE 40 MG/4 ML VIAL IV SCH ×2 (09:48→16:07)
--- NOTE | 2020-12-11 13:13 | P.PN ---
Subjective Date of Service: 12/11/20 Chief Complaint: ARF Subjective: Improving (feeling better this morning, no bleeding) Review of Systems 10-point ROS is otherwise unremarkable Physical Examination - Vital Signs Temperature: 96.9 F Blood Pressure: 123/76 Pulse: 86 Respirations: 16 Pulse Ox (%): 96 Assessment & Plan Physician Review Additional Text: Physical Exam General: AAOx3, NAD HEENT: Mucous membr. moist/pink, anicteric sclera Respiratory: Clear to auscultation bilaterally, Normal air movement, shallow respirations Cardiovascular: 1-2+ BLE edema in thighs, pitting edema in abdominal wall, Normal S1 S2, regular rate/rhythm Gastrointestinal: +distention, edematous abd wall, nontender Musculoskeletal: No joint swelling Integumentary: No rashes, No erythema : Valdez catheter in place Assessment And Plan Acute metabolic encephalopathy secondary to UTI Acute renal failure Sepsis secondary to ESBL E coli (UTI) DIC Pancytopenia h/o alcohol abuse Hepatic cirrhosis Hyponatremia Hypercalcemia Chest Heaviness -mental status much improved - at baseline -sepsis resolved, urine culture grew ESBL E. coli, ID was consulted and recommend 7 days of meropenem (completed). Blood cultures remained negative. -patient did lose IV access and missed 2 days of IV antibiotics. Central line was placed on 12/04 -AIDA possibly ATN vs AIN, prerenal; nephrology consulted and assisting with management; received significant IVF -patient now edematous, has low albumin, dc'd IVF on 12/06, started albumin/lasix on 12/07 for diuresis. renal function improved significantly -UOP much improved as well, mobilizing more fluid now -pancytopenia, secondary to sepsis in setting of significant comorbidities - liver cirrhosis, alcoholic, acute renal failure -pt SOB, pale, and borderline tachycardic, anemic on 12/07, transfused 1u PRBC -Heme/onc consulted -anemic, low fibrinogen, elevated d-dimer, consistent with DIC 2/2 sepsis -patient without any bleeding / oozing -heparin DVT prophylaxis -continue to trend/monitor -transfuse for Hgb <7.0 -Hgb 7.4 today -PT consulted -continue home medications -intermittent chest heaviness, EKG/trop negative. feels like can't take a deep breath in - likely from fluid overload in abdomen/abdominal wall -possibility of PE, however vitals ok, pt is not hypoxic. If no improvement with diuresis, will need to r/o PE VTE: heparin prophylaxis Code:full Dispo: SW/CM consulted. Patient approved for SNF anticipate discharge once hgb / DIC / edema improved/stable, likely in ~1-2 days Time Spent Managing Pts Care (In Minutes): 35
[2020-12-11] MEDS: Rifaximin 550 MG Tab PO SCH ×2 (14:38→21:00)
[2020-12-11] MEDS: HEPARIN 5000 UNIT/ML 1 ML VIAL SQ SCH ×2 (14:40→21:33)
[2020-12-12 05:45] LABS: Absolute Lymphocytes (CBC) 0.6 K/uL (0.7-4.9); Basophils % 0.8 % (0-1.3); Hematocrit 22.4 % (36.0-45.0); Lymphocytes % 24.7 % (15.3-44.8); MPV 9.5 fL (7.6-11.3); RBC Red Blood Cell Count 2.15 M/uL (3.86-4.86)
[2020-12-12 06:06] LABS: Albumin 3.1 g/dL (3.4-5.0); Bilirubin Total 1.5 mg/dL (0.2-1.0); Magnesium 1.4 mg/dL (1.8-2.4); Phosphorus 2.4 mg/dL (2.5-4.9); Potassium 3.7 mmol/L (3.5-5.1); Protein, Total 4.9 g/dL (6.4-8.2)
[2020-12-12] MEDS ORDERED: Magnesium Sulfate 2gm IVPB 2 G/50 ML BAG IV ONE (06:08)
[2020-12-12 06:33] LABS: Blood Morphology Comment NOT SEEN (NOT SEEN); Platelet Estimate DECR; White Blood Cell Scan OK (OK)
[2020-12-12] MEDS: PANTOPRAZOLE 40MG TABLET PO SCH (07:30)
[2020-12-12] MEDS ORDERED: MAGNESIUM SULFATE 1 gm IVPB 1 GM/100 ML BAG IV ONE (08:38)
[2020-12-12] MEDS: LACTOBACILLUS/ACIDOPHILUS TAB PO SCH (09:00)
[2020-12-12] MEDS: FOLIC ACID 1 MG TABLET PO SCH (09:00)
[2020-12-12] MEDS: ENSURE ENLIVE 237 ML CAN PO SCH (09:00)
[2020-12-12] MEDS: THIAMINE HCL 100 MG TABLET PO SCH (09:00)
[2020-12-12] MEDS: Rifaximin 550 MG Tab PO SCH (09:00)
[2020-12-12] MEDS: FUROSEMIDE 40 MG/4 ML VIAL IV SCH (09:00)
[2020-12-12] MEDS ORDERED: POTASSIUM 25 MEQ EFFERV TAB PO ONE (09:00)
[2020-12-12] MEDS: HEPARIN 5000 UNIT/ML 1 ML VIAL SQ SCH (10:30)
[2020-12-12 10:32] VITALS: O2SAT 93
--- NOTE | 2020-12-12 12:36 | P.PN ---
Subjective Date of Service: 12/12/20 Chief Complaint: ARF Patient seen examined at bedside, no acute events over past 24hr. Review of Systems 10-point ROS is otherwise unremarkable Physical Examination - Vital Signs Temperature: 98 F Blood Pressure: 111/68 Pulse: 93 Respirations: 16 Pulse Ox (%): 94 - Studies Temp Pulse Resp BP Pulse Ox 98 F 93 H 16 111/68 94 12/12/20 12:00 12/12/20 12:00 12/12/20 12:00 12/12/20 12:00 12/12/20 12:00 Laboratory Tests 11/27/20 11/27/20 11/27/20 12:34 13:00 13:00 WBC 5.80 D RBC 2.71 L Hgb 10.1 L Hct 29.1 L MCV 107.2 H MCH 37.2 H MCHC 34.7 RDW 16.3 H Plt Count 119 L D MPV 9.1 Neutrophils % 79.9 H Lymphocytes % 10.7 L Monocytes % 8.6 Eosinophils % 0.2 Basophils % 0.6 Absolute Neutrophils 4.7 Absolute Lymphocytes 0.6 L Absolute Monocytes 0.5 Absolute Eosinophils 0.0 Absolute Basophils 0.0 Platelet Estimate Decr Poikilocytosis 2+ Morphology Comment Noted Sodium 125 L Potassium 3.0 L Chloride 90 L Carbon Dioxide 23 BUN 6 L Creatinine 4.57 H D Estimated GFR 9 L Glucose 110 H Calcium 7.5 L Total Bilirubin 6.2 H* Direct Bilirubin 4.0 H AST 77 H ALT 17 Alkaline Phosphatase 162 H Ammonia 48 Serum Total Protein 5.4 L Albumin 2.5 L Globulin 2.9 Albumin/Globulin Ratio 0.9 L Lipase 27 L SARS-CoV-2 RNA (RT-PCR) Smear Scan Ok 11/27/20 15:45 WBC RBC Hgb Hct MCV MCH MCHC RDW Plt Count MPV Neutrophils % Lymphocytes % Monocytes % Eosinophils % Basophils % Absolute Neutrophils Absolute Lymphocytes Absolute Monocytes Absolute Eosinophils Absolute Basophils Platelet Estimate Poikilocytosis Morphology Comment Sodium Potassium Chloride Carbon Dioxide BUN Creatinine Estimated GFR Glucose Calcium Total Bilirubin Direct Bilirubin AST ALT Alkaline Phosphatase Ammonia Serum Total Protein Albumin Globulin Albumin/Globulin Ratio Lipase SARS-CoV-2 RNA (RT-PCR) Negative Smear Scan Assessment And Plan - Plan General: Alert, In no apparent distress HEENT: Atraumatic, Normocephalic Neck: Supple, 2+ carotid pulse no bruit, Other (Left central line) Respiratory: Clear to auscultation bilaterally, Normal air movement Cardiovascular: No edema Capillary refill: <2 Seconds Gastrointestinal: Normal bowel sounds Musculoskeletal: No clubbing, No swelling Integumentary: No rashes, No breakdown Urinary: Valdez catheter Antibiotics: Meropenem Start: 12/01 Stop: 12/08 Assessment: -ESBL E coli urinary tract infection -Leukopenia -thrombocytopenia -Acute kidney injury -Cirrhosis -Anemia Plan: -patient completed course of meropenem for ESBL E coli urinary tract infection. Continue to monitor for signs of infection. -Medical management per primary team -continue to monitor H&H. -continue monitor CBC and BMP -Continue to monitor for signs infection Plan of care discussed with Dr. Tomas Thank you for consultation.
--- NOTE | 2020-12-12 13:28 | PN ---
Subjective: The patient is lying in bed. No new acute event. Chart reviewed. Objective: Vital Signs: Temperature 97, pulse 88, respirations 16, blood pressure 122/70. Lungs: Clear to auscultation. Heart: S1, S2. Regular. Abdomen: Distended. Bowel sounds present. Extremity: Trace edema. Laboratory Data: Shows WBC 2.4, hemoglobin 7.4, platelets are 88. Chemistry shows sodium 141, potas sium 3.6, chloride 103, bicarb 33, BUN 19, creatinine 0.7, glucose is 98. Micro data shows E coli ES BL in the urine from 11/28. The patient is currently being treated with IV meropenem. Assessment/plan: Pancytopenia secondary to liver disease and ascites. The patient also has urinary tract infection, currently being treated with meropenem. Repeat urinalysis. Total course should be 10 to 14 days. We will follow the patient closely. NF/MODL Voice ID: [id number] Report ID: [id number]
--- NOTE | 2020-12-12 14:17 | P.DS ---
Admission Date: 11/27/20 Discharge Date: 12/12/20 Disposition: TRANSFER TO LONG TERM Discharge Condition: FAIR Reason for Admission: ARF - Problems (1) Acute metabolic encephalopathy Current Visit: Yes Status: Acute (2) Acute renal failure Current Visit: Yes Status: Acute (3) Sepsis Current Visit: No Status: Resolved Qualifiers: Sepsis type: sepsis due to unspecified organism Qualified Code(s): A41.9 - Sepsis, unspecified organism (4) Alcohol abuse Onset Date: 05/20/18 Current Visit: No Status: Chronic (5) Hepatic cirrhosis Onset Date: 06/30/17 Current Visit: No Status: Chronic Qualifiers: Hepatic cirrhosis type: alcoholic cirrhosis Ascites presence: without ascites Qualified Code(s): K70.30 - Alcoholic cirrhosis of liver without ascites (6) Hyponatremia Onset Date: 05/20/18 Current Visit: No Status: Resolved (7) Hypocalcemia Current Visit: Yes Status: Acute (8) Anemia Onset Date: 06/30/17 Current Visit: No Status: Acute Qualifiers: Anemia type: B12 deficiency Vitamin B12 deficiency anemia type: unspecified B12 deficiency Qualified Code(s): D51.9 - Vitamin B12 deficiency anemia, unspecified (9) Thrombocytopenia Current Visit: No Status: Acute Vital Signs/Physical Exam: Temp Pulse Resp BP Pulse Ox 98 F 93 H 16 111/68 94 12/12/20 12:36 12/12/20 12:36 12/12/20 12:36 12/12/20 12:36 12/12/20 12:36 Laboratory Data at Discharge: WBC 2.50 K/uL (4.3-10.9) L 12/12/20 05:20 Hgb 7.6 g/dL (12.0-15.0) L 12/12/20 05:20 Hct 22.4 % (36.0-45.0) L 12/12/20 05:20 Plt Count 101 K/uL (152-406) L 12/12/20 05:20 PT 17.7 SECONDS (9.5-12.5) H 12/10/20 04:30 INR 1.53 12/10/20 04:30 APTT 32.7 SECONDS (24.3-36.9) 12/10/20 04:30 Sodium 142 mmol/L (136-145) 12/12/20 05:20 Potassium 3.7 mmol/L (3.5-5.1) 12/12/20 05:20 BUN 17 mg/dL (7-18) 12/12/20 05:20 Creatinine 0.79 mg/dL (0.55-1.3) 12/12/20 05:20 Glucose 100 mg/dL (74-106) 12/12/20 05:20 Phosphorus 2.4 mg/dL (2.5-4.9) L 12/12/20 05:20 Magnesium 1.8 mg/dL (1.8-2.4) 12/12/20 13:35 Total Bilirubin 1.5 mg/dL (0.2-1.0) H 12/12/20 05:20 AST 28 U/L (15-37) 12/12/20 05:20 ALT 16 U/L (12-78) 12/12/20 05:20 Alkaline Phosphatase 60 U/L (45-117) 12/12/20 05:20 Troponin I < 0.02 ng/mL (0.0-0.045) 12/09/20 00:15 Lipase 27 U/L (73-393) L 11/27/20 13:00 Home Medications: Travoprost [Travatan Z*] 1 gtt EACH EYE BEDTIME 05/19/18 Pantoprazole [Protonix Tab*] 40 mg PO ACB #30 tab 05/29/18 Folic Acid 1 mg PO DAILY 05/29/20 Ensure Enlive 237 ml PO BID can 12/12/20 Furosemide [Lasix] 40 mg PO BIDL #60 tab 12/12/20 Rifaximin [Xifaxan] 550 mg PO BID tablet 12/12/20 Thiamine HCl [Vitamin B-1*] 100 mg PO DAILY tablet 12/12/20 New Medications: Furosemide [Lasix] 40 mg PO BIDL #60 tab Diet: AHA Activity: Fall precautions Followup: OOTAyanOT [Primary Care Provider] - 1-2 Weeks
[2020-12-12 16:34] VITALS: BP 104/51; TEMP 98.3
== END 2020-12-12 18:32 | DRG 871 ==
LOC: ER 10:44 → ERHOLD 16:49 → 2ND 11-28 00:18 → ERHOLD 11-28 02:28 → 2ND 11-29 16:08
PROVIDERS: ADMIT Hospitalist; ATTEND Internal Medicine
PROC: 5A09457 Assistance with Respiratory Ventilation, 24-96 Consecutive Hours, Continuous Positive Airway Pressure (ICD-10-PCS; principal; 2020-11-28)
PROC: 02HV33Z Insertion of Infusion Device into Superior Vena Cava, Percutaneous Approach (ICD-10-PCS; 2020-12-04)
PROC: 30233N1 Transfusion of Nonautologous Red Blood Cells into Peripheral Vein, Percutaneous Approach (ICD-10-PCS; 2020-12-07)
DX: A41.51 Sepsis due to Escherichia coli [E. coli] (principal); G93.41 Metabolic encephalopathy; D65 Disseminated intravascular coagulation [defibrination syndrome]; N17.9 Acute kidney failure, unspecified; E44.0 Moderate protein-calorie malnutrition; N39.0 Urinary tract infection, site not specified; E87.1 Hypo-osmolality and hyponatremia; E87.2 Acidosis; Z16.12 Extended spectrum beta lactamase (ESBL) resistance; D61.818 Other pancytopenia; K21.9 Gastro-esophageal reflux disease without esophagitis; F41.9 Anxiety disorder, unspecified; K70.31 Alcoholic cirrhosis of liver with ascites; F10.10 Alcohol abuse, uncomplicated; E87.6 Hypokalemia; E83.51 Hypocalcemia; E83.42 Hypomagnesemia; D72.819 Decreased white blood cell count, unspecified; E83.52 Hypercalcemia; E87.70 Fluid overload, unspecified; D51.9 Vitamin B12 deficiency anemia, unspecified; E86.0 Dehydration; R79.89 Other specified abnormal findings of blood chemistry; Z68.21 Body mass index [BMI] 21.0-21.9, adult; Z79.899 Other long term (current) drug therapy; Z88.5 Allergy status to narcotic agent; Z20.822 Contact with and (suspected) exposure to COVID-19
CPT/HCPCS: 36415; 36430; 36569; 70450; 71045; 71250; 74176; 74230; 76705; 76770; 80048; 80053; 80069; 80074; 80076; 80202; 80307; 80320; 81001; 82105; 82140; 82390; 82550; 82607; 82728; 82805; 82947; 83540; 83605; 83615; 83690; 83735; 83930; 83935; 84100; 84132; 84145; 84295; 84300; 84466; 84484; 85014; 85018; 85025; 85044; 85379; 85384; 85610; 85652; 85730; 86038; 86140; 86255; 86850; 86900; 86901; 87040; 87045; 87046; 87077; 87086; 87088; 87177; 87186; 87209; 87324; 87449; 92610; 92611; 93005; 93306; 94660; 96374; 96375; 97110; 97112; 97162; 97530; 99284; J0610; J0696; J1644; J1940; J2185; J2405; J2550; J2930; J3370; J3411; J3475; J3480; J7030; J7050; P9016; P9047; U0003

== ENCOUNTER 2021-03-15 13:48 | Observation (INO) | payer OTHER, MEDICARE ==
--- OUTSIDE RECORDS SUMMARY | 2021-03-15 13:53 | XMS REPORT | Continuity of Care Document ---
:1950 Author Organization [facility] t Address 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 00 Ce nter is is Acute Acute Disease Active [facility] kidney kidney [facility]-10 [facility] injury injury [facility]: Medical 00 [place] Hyponatrem Hyponatrem Disease Active [facility] ia ia 03-10 [facility] Allergies, Adverse Reactions, Alerts Allergy Allergy Status Severity Reaction(s) Onset Inactive Treating Comm ents Source Name Type Date Date Clinician Hydrocod Drug Active [facility] one-Acet Allergy 03-10 [facility] aminophe 00:[facility]: Medical n 00 Center Imitrex Adverse Active Info Not [facility] Reaction Available [facility] [place] Adverse Active Info Not [facility] Reaction Available [facility] Social History Social Habit Start Date Stop Date Quantity Comments Source Sex Assigned At [facility] Medications Ordered Filled Start Stop Current Ordering Indication Dosage Frequency Signature Comments Components Source Medication Medication Date Date Medication? Clinician (SIG) Name Name Cefdinir Cefdinir 2019- Carin as [facility] 803-04 Maddison rosario [facility] - 00:00: 00:00 Memoria 00 :00 [facility] Vital Signs Vital Name Observation Time Observation Value Comments Source Systolic blood 2020-03-14 12:22:00 138 mm[Hg] [facility] Diastolic blood 2020-03-14 12:22:00 63 mm[Hg] [facility] Heart rate 2020-03-14 12:22:00 77 /min [facility] Body temperature 2020-03-14 12:22:00 36.17 Stella [facility] Respiratory rate 2020-03-14 12:22:00 18 /min [facility] Oxygen saturation in 2020-03-14 12:22:00 99 /min [facility] Arterial blood by Medical Ce nter Pulse oximetry Procedures Procedure Date / Time Performed Performing Clinician Dewayne rhodes POCT-GLUCOSE METER 2020-03-14 12:24:00 [facility] POCT-GLUCOSE METER 2020-03-14 05:37:00 [facility] CBC W/PLT COUNT & AUTO 2020-03-14 05:26:00 ShaniMadi [facility] S t [facility] - DIFFERENTIAL [facility] COMPREHENSIVE METABOLIC 2020-03-14 05:26:00 Madi Mcleod [facility] PANEL [facility] MAGNESIUM 2020-03-14 05:26:00 Madi Mcleod [facility] PHOSPHORUS 2020-03-14 05:26:00 Shani [facility] Plan of Care Planned Activity Planned Date Details Comments Source Future Scheduled 2021-03-[address] [facility] Test 00:00:00 (#1) [code = Medical Center INFLUENZA VACCINE (#1)] Future Scheduled 2020-07-[address] [facility] - Test 00:00:00 (12+) [code = Medical Center DEPRESSION SCREENING (12+)] Future Scheduled 2020-07-14 FALLS RISK SCREENING [facility] - Test 00:00:00 [code = FALLS RISK Medical C enter SCREENING] Future Scheduled 2016-01-[address] [...] DTAP/TDAP/TD VACCINES (1 - Tdap)] Future Scheduled [address] [facility] - Test 00:00:00 malignant neoplasm of Medica l Center breast (procedure) [code = 304270088] Future Scheduled [address] [facility] - Test 00:00:00 malignant neoplasm of [facility] Center colon (procedure) [code = 646596930] Encounters Start End Encounter Admission Attending Care Care Encounter Source Date/Time Date/Time Type Type Clinicians Facility Department ID 2021-03-01 2021-03-[address] [facility] [id number] [facility]00 [facility] 2021-02-05 2021-02-05 Outpatient [facility] [id number] [facility]00 [facility] l Outpati ent Clinics 2021-01-24 2021-01-[address] [facility] [id number] [facility]00 00[facility]00:00 [facility] 2021-01-192021-01-19 [id number] 2021-01-05 2021[facility]01-05 [facility] [id number] [facility]00 00[facility]00[facility]00 [facility] 2020-11-29 2020-11-29 [facility] [id number] [address] [facility]00 00:00:00 [facility] 2020-11-21 2020-11-21 [facility] [id number] [facility] 2020-11-14 2020-11-14 [facility] [id number] 00:00[facility]00 00:00:00 [facility] 2020-11-02 2020-11-02 [facility] [id number] 00:00[facility]00 00:00:00 [facility] 2020-11-01 2020-11-01 [facility] [id number] [facility] 2020-10-31 2020-10-31 [facility] [id number] 00:00[facility]00 00:00:00 [facility] 2020-10-30 2020-10-30 [facility] [id number] [facility] 2020-10-25 2020-10-25 [facility] [id number] [facility] 2020-09-21 2020-09-21 [facility] [id number] [facility] 2020-09-19 2020-09-19 Outpatient [facility] [id number] [facility] 2020-06-21 2020-06-21 [facility] [id number] [facility] 2020-06-06 2020-06-06 [facility] [id number] [facility] 2020-06-06 2020-06-06 [facility] [id number] [facility] 2020-03-10 2020-03-14 [facility] Odilia Rubin Smith [facility] [id number] [facility] 15[facility]23[facility]00 [facility] 2020-02-[facility] 2020-02-28 [facility] [id number] 09:52:00 09:52:00 t Specialty/U Yareli kes - Specialty rology [facility] /Urology Clinic l Clinic Outpati ent Clinics 2020-02-25 2020-02-25 [facility] [id number] 11:00:00 11:00:00 t Specialty/U Yareli kes - Specialty rology Memori a /Urology Clinic l Clinic Outpati ent Clinics 2019-12-29 2019-12-29 [facility] [id number] 10:02:00 10:02:00 t Specialty/U Yareli kes - Specialty rology Memori a /Urology Clinic l Clinic Outpati ent Clinics 2019-12-29 2019-12-29 [facility] [id number] 10:02:00 10:02:00 t Specialty/U Yareli kes - Specialty rology Memori a /Urology Clinic l Clinic Outpati ent Clinics 2019-12-13 2019-12-13 [facility] [id number] 11:00:00 11:00:00 t Specialty/U Yareli kes - Specialty rology Memori a /Urology Clinic l Clinic Outpati ent Clinics 2019-12-13 2019-12-13 [facility] [id number] 08:52:00 08:52:00 t Specialty/U Yareli kes - Specialty rology [facility]Urology Clinic l Clinic Outpati ent Clinics 2019-10-14 2019-10-14 [facility] [id number] 11:03:00 11:03:00 t Specialty/U Yareli kes - Specialty rology Memori [facility] /Urology Clinic l Clinic Outpati ent Clinics 2019-10-12 2019-10-12 [facility] [id number] 13:32:00 13:32:00 t Specialty/U Yareli kes - Specialty rology Memori a /Urology Clinic l Clinic Outpati ent Clinics 2019-08-30 2019-08-30 [facility] [id number] 11:46:00 11:46:00 t [facility] Medicine l Medicine Outpati ent Clinics 2019-08-22 2019-08-22 [facility] [id number] 12:35:00 12:35:00 t [facility] l Medicine Outpati ent Clinics 2019-08-18 2019-08-18 [facility] [id number] 10:45:00 10:45:00 t [facility] l Medicine Outpati ent Clinics 2019-06-21 2019-06-21 [facility] [id number] 10:00:00 10:00:00 t Specialty/U Yareli kes - Specialty rology Memori a /Urology Clinic l Clinic Outpati ent Clinics 2019-06-01 2019-06-01 [facility] [id number] 10:00:00 10:00:00 t [facility] l Medicine Outpati ent Clinics 2019-05-18 2019-05-18 [facility] [id number] 10:40:00 10:40:00 t [facility] Medicine Outpati ent Clinics 2019-04-19 2019-04-19 [facility] [id number] 23:36:00 23:36:00 t [facility] Medicine Outpati ent Clinics 2019-04-03 2019-04-03 [facility] [id number] 04:57:00 04:57:00 t [facility] Medicine Outpati ent Clinics 2019-03-17 2019-03-17 [facility] [id number] 21:43:00 21:43:00 t [facility] Medicine Outpati ent Clinics 2019-03-17 2019-03-17 [facility] [id number] 10:40:00 10:40:00 t [facility] Medicine Outpati ent Clinics 2019-03-08 2019-03-08 [facility] [id number] 15:04:00 15:04:00 t [facility] Medicine Outpati ent Clinics 2019-03-01 2019-03-01 [facility] [id number] 20:32:00 20:32:00 t [facility] Medicine Outpati ent Clinics 2019-02-26 2019-02-26 [facility] [id number] 16:08:00 16:08:00 t [facility] Medicine Outpati ent Clinics 2019-02-22 2019-02-22 Out[facility] [id number] 08:19:00 08:19:00 t [facility] Medicine Outpati ent Clinics 2019-02-15 2019-02-15 [facility] [id number] 09:20:00 09:20:00 t [facility] Medicine Outpati ent Clinics 2019-01-18 2019-01-18 Out[facility] [id number] 10:00:00 10:00:00 t Specialty/U Y[facility]li [facility]es [facility] Clin[facility] 2018-09-02 2018-09-02 [facility] [id number] 10:45:00 10:45:00 t [facility] Outpati ent Clinics 2018-07-21 2018-07-21 Out[facility] [id number] 09:30:00 09:30:00 t Specialty/U Yareli kes - Specialty rology Memori a /Urology Clinic l Clinic Outpati ent Clinics 2018-03-11 2018-03-11 Out[facility] [id number] 09:30:00 09:30:00 t Specialty/U Yareli kes - Specialty rology Memori a /Urology Clinic l Clinic Outpati ent Clinics 2018-02-19 2018-02-19 Out[facility] [id number] 09:00:00 09:00:00 t Specialty/U Yareli kes - Specialty rology Memori a /Urology Clinic l Clinic Outpati ent Clinics 2018-01-16 2018-01-16 Out[facility] [id number] 15:30:00 15:30:00 t Specialty/U Yareli kes - Specialty rology Memori a /Urology Clinic l Clinic Outpati ent Clinics 2017-12-25 2017-12-25 Out[facility] [id number] 10:38:00 10:38:00 t Specialty/U Yareli kes - Specialty rology Memori a /Urology Clinic l Clinic Outpati ent Clinics 2017-12-24 2017-12-24 Out[facility] [id number] 09:52:00 09:52:00 t Specialty/U Yareli kes - Specialty rology Memori [facility] /Urology Clinic l Clinic Outpati ent Clinics 2017-12-11 2017-12-11 [facility] [id number] 09:30:00 09:30:00 t Specialty/U Yareli kes - Specialty rology [facility]Urology Clinic l Clinic Outpati ent Clinics 2017-12-09 2017-12-09 Out[facility] [id number] 09:35:00 09:35:00 t Specialty/U Yareli kes - Specialty rology Memori a /Urology Clinic l Clinic Outpati ent Clinics 2017-11-20 2017-11-20 [facility] [id number] 09:00:00 09:00:00 t Specialty/U Yareli kes - Specialty rology Memori a /Urology Clinic l Clinic Outpati ent Clinics 2017-11-06 2017-11-06 [facility] [id number] 10:05:00 10:05:00 t Specialty/U Yareli kes - Specialty rology Memori [facility] /Urology Clinic l Clinic Outpati ent Clinics 2017-11-06 2017-11-06 [facility] [id number] 09:12:00 09:12:00 t Specialty/U Yareli kes - Specialty rology Memori [facility] /Urology Clinic l Clinic Outpati ent Clinics 2017-11-04 2017-11-04 [facility] [id number] 09:45:00 09:45:00 t Specialty/U Yareli kes - Specialty rology Memori a /Urology Clinic l Clinic Outpati ent Clinics 2017-10-20 2017-10-20 [facility] [id number] 08:45:00 08:45:00 t [facility] Results Test Description Test Time Test Comments Results Result Comments Source BLOOD CULTURE 2020-03-15 17:00:00 Test Item Value Reference Range Interpretation Comme nts CULTURE (BEAKER) (test code = 1095) No growth in 5 days BLOOD [id number] 15:00:00 Test Item Value Reference Range Interpretation Comments CULTURE (BEAKER) (test No growth in 5 days code = 1095) POC-Glucose [id number] 12:35:00 Test Item Value Reference Range Interpretation Comments POC-Glucose Meter (test 103 mg/dL 70-110 : TE STED AT [facility] code = 1538) 6720 [facility] 30: Caddy Master/Techni benjamin ID = [id number] for EMILY SOLITARIO Lab Interpretation (test Normal code = 11520-5) [facility] [id number] 12:35:00 Test Item Value Reference Range Interpretation Comments POC-GLUCOSE METER 103 mg/dL 70-110 : TESTED A T [facility] 6720 (BEAKER) (test code = SH[place] CH[place], 1538) 75440: Caddy Master/Techni benjamin ID = [id number] for EMILY EATON CBC with platelet count + automated [id number] 06:54:00 Test Item Value Reference Range Interpretation Comments WBC (test code = 6690-2) 3.5 See_Comment [A utomated message] The system Fiiiling generated this result transmitted ref erence range: 3.5 - 10 .5 K/L. The refe rence range was not u sed to interpret this result as normal/abnor mal. RBC (test code = 789-8) 2.79 See_Comment L [Au tomated message] The system Fiiiling generated this result transmitted ref erence range: 3.93 - 5 .22 M/L. The refe rence range was not u sed to interpret this result as normal/abnor mal. MCHC (test code = 786-4) 36.0 See_Comment H [A utomated message] The system Fiiiling generated this result transmitted ref erence range: [...] L [Aut omated message] 777-3) The system Fiiiling generated this result transmitted ref erence range: 150 - 45 0 K/CU MM. The referen ce range was not u sed to interpret this result as normal/abnor mal. MPV (test code = 10.5 fL 9.4-12.3 03735-2) nRBC (test code = 413) 0 See_Comment [Aut omated message] The system Fiiiling generated this result transmitted ref erence range: [...] See_Comment [Aut omated message] 670) The system Fiiiling generated this result transmitted ref erence range: 1.56 - 6 .13 K/L. The refe rence range was not u sed to interpret this result as normal/abnor mal. # Lymphs (test code = 0.43 See_Comment L [Auto mated message] 414) The system Fiiiling generated this result transmitted ref erence range: 1.18 - 3 .74 K/L. The refe rence range was not u sed to interpret this result as normal/abnor mal. # Monos (test code = 0.98 See_Comment H [Autom ated message] 415) The system Fiiiling generated this result transmitted ref erence range: 0.24 - 0 .36 K/L. The refe rence range was not u sed to interpret this result as normal/abnor mal. # Eos (test code = 416) 0.07 See_Comment [Au tomated message] The system Fiiiling generated this result transmitted ref erence range: 0.04 - 0 .36 K/L. The refe rence range was not u sed to interpret this result as normal/abnor mal. # Baso (test code = 417) 0.01 See_Comment [A utomated message] The system Fiiiling generated this result transmitted ref erence range: 0.01 - 0 .08 K/L. The refe rence range was not u sed to interpret this result as normal/abnor mal. Immature 1 % 0-1 Granulocytes-Relative (test code = 2801) Lab Interpretation (test Abnormal code = 21148-5) [facility] W/PLT COUNT & AUTO [id number] 06:54:00 Test Item Value Reference Range Interpretation [...] (BEAKER) (test code = 2801) Comprehensive metabolic [id number] 06:45:00 Test Item Value Reference Range Interpretation Comments Protein, Total (test 5.1 See_Comment L [Autom ated code = 2885-2) message] The system which generated this result transmit enrique reference range : 6.0 - 8.3 gm/dL . The reference range was not u sed to interpret th is result as normal/abnormal . Albumin (test code = 3.0 g/dL 3.5-5 L 98426-1) Alkaline Phosphatase 128 U/L 40-150 (test code [...] (test code = 7.6 mg/dL 8.4-10.2 L 07686-3) AST (test code = 75 U/L 5-34 H 1920-8) ALT (test code = 64 U/L 6-55 H 1742-6) EGFR (test code = 109 mL/min/1.73 [place] [address]-3) NOT ACCURATE CREATININE CLEARANCE IN PREDICTING GLOMERULAR FILTRATION RATE . ESTIMATED GFR I S NOT APPLICABLE FOR DIALYSIS PATIEN TS. MICHAEL (test code = MICHAEL) Caddy Master ID - EDASI Lab Interpretation Abnormal (test code = 92925-6) [facility] [id number] 06:45:00 Test Item Value Reference Range Interpretation [...] S NOT APPLICABLE FOR DIALYSIS PATIEN TS. Caddy Master ID - [id number] 06:34:00 Test Item Value Reference Range Interpretation Comments Magnesium (test code = 1.6 mg/dL 1.6-2.6 79448-3) MICHAEL (test code = MICHAEL) Caddy Master ID - EDASI Lab Interpretation (test Normal code = 12793-6) [facility]2020-[facility] 06:34:00 Test Item Value Reference Range Interpretation Comments Phosphorus (test code = 2.3 mg/dL 2.3-4.7 2777-1) MICHAEL (test code = MICHAEL) Caddy Master ID - EDASI Lab Interpretation (test Normal code = 42482-9) [facility]2020-[facility]-01 06:34:00 Test Item Value Reference Range Interpretation Comments PHOSPHORUS (BEAKER) (test code = 2.3 mg/dL 2.3-4.7 604) Caddy Master ID - [id number] 06:34:00 Test Item Value Reference Range Interpretation Comments MAGNESIUM (BEAKER) (test code = 1.6 mg/dL 1.6-2.6 627) Caddy Master ID - EDASIPOCT-GLUCOSE [id number] 05:48:00 Test Item Value Reference Range Interpretation Comments POC-GLUCOSE METER 86 mg/dL 70-110 : TESTED A T [facility] 6720 (BEAKER) (test code = [facility], 153) [address]157: Caddy Master/Techni benjamin ID = [id number] for SAND ERS, KRAIG POCT-GLUCOSE [id number] 23:58:00 Test Item Value Reference Range Interpretation Comments POC-GLUCOSE METER 94 mg/dL 70-110 : TESTED A T [facility] 6720 (BEAKER) (test code = [facility], [facility]8) 89856: Caddy Master/Techni benjamin ID = [id number] for SAND ERS, KRAIG POCT-GLUCOSE [id number] 14:18:00 Test Item Value Reference Range Interpretation Comments POC-GLUCOSE METER 93 mg/dL 70-110 : TESTED A T [facility] 6720 (BEAKER) (test code = [facility], 1538) 62434: Caddy Master/Techni benjamin ID = [id number] for Sylvia Owens POCT-GLUCOSE [id number] 12:42:00 Test Item Value Reference Range Interpretation Comments POC-GLUCOSE METER 96 mg/dL 70-110 : TESTED A T [facility] 6720 (BEAKER) (test code = [facility], [facility]8) 83610: Caddy Master/Techni benjamin ID = [id number] for Paco Alcantara [id number] 08:22:00 Test Item Value Reference Range Interpretation Comments PHOSPHORUS (BEAKER) (test code = 1.3 mg/dL 2.3-4.7 LL 604) Caddy Master ID - DOLLYAYA LCOMPREHENSIVE METABOLIC [id number] 08:21:00 Test Item Value Reference Range Interpretation [...] S NOT APPLICABLE FOR DIALYSIS PATIEN TS. Caddy Master ID - PIAYA [id number] 08:16:00 Test Item Value Reference Range Interpretation Comments MAGNESIUM (BEAKER) (test code = 1.3 mg/dL 1.6-2.6 L 627) Caddy Master ID - PIPAYAM LCBC W/PLT COUNT & AUTO [id number] 07:59:00 Test Item Value Reference Range Interpretation [...] PERCENT (BEAKER) (test code = 2801) POCT-GLUCOSE [id number] 07:35:00 Test Item Value Reference Range Interpretation Comments POC-GLUCOSE METER 98 mg/dL 70-110 : TESTED A T [facility] 6720 (BEAKER) (test code = [place], 1538) [address]: Caddy Master/Techni benjamin ID = [id number] for Edson Gerardo POCT-GLUCOSE [id number] 07:03:00 Test Item Value Reference Range Interpretation Comments POC-GLUCOSE METER 103 mg/dL 70-110 : TESTED A T [facility] 6720 (BEAKER) (test code = [facility], 1538) 41480: Caddy Master/Techni benjamin ID = [id number] for Jaimee Mccoy POCT-GLUCOSE [id number] 16:13:00 Test Item Value Reference Range Interpretation Comments POC-GLUCOSE METER 110 mg/dL 70-110 : TESTED A T [facility] 6720 (BEAKER) (test code = [facility], 1538) 62370: Caddy Master/Techni benjamin ID = [id number] for Katharina Ramireza POCT-GLUCOSE [id number] 13:14:00 Test Item Value Reference Range Interpretation Comments POC-GLUCOSE METER 127 mg/dL 70-110 H : TESTED A T [facility] 6720 (BEAKER) (test code = [facility], 153) 99914: Caddy Master/Techni benjamin ID = [id number] for Katharina Ramireza [id number] 12:48:00 Test Item Value Reference Range Interpretation Comments POTASSIUM (BEAKER) 3.1 meq/L 3.5-5.1 L Specimen slightly (test code = 379) hemolyzed Caddy Master ID - JOHN CPOCT-GLUCOSE [id number] 08:55:00 Test Item Value Reference Range Interpretation Comments POC-GLUCOSE METER 148 mg/dL 70-110 H : TESTED A T [facility] 6720 (BEAKER) (test code = [facility], 153) 29545: Caddy Master/Techni benjamin ID = [id number] for Yesika barineeli, [place] COMPREHENSIVE METABOLIC [id number] 04:19:00 Test Item Value Reference Range Interpretation [...] S NOT APPLICABLE FOR DIALYSIS PATIEN TS. Caddy Master ID - RYAN LSpecimen slightly [id number] 04:19:00 Test Item Value Reference Range Interpretation Comments PHOSPHORUS (BEAKER) (test code = 1.5 mg/dL 2.3-4.7 LL 604) Caddy Master ID - RYAN [id number] 04:16:00 Test Item Value Reference Range Interpretation Comments MAGNESIUM (BEAKER) (test code = 1.7 mg/dL 1.6-2.6 627) Caddy Master ID - RYAN LCBC W/PLT COUNT & AUTO [id number] 03:32:00 Test Item Value Reference Range Interpretation [...] PERCENT (BEAKER) (test code = 2801) POCT-GLUCOSE [id number] 19:52:00 Test Item Value Reference Range Interpretation Comments POC-GLUCOSE METER 122 mg/dL 70-110 H : TESTED A T [facility] 6720 (BEAKER) (test code = SHABBIR Jiménez [place], 1538) 609[address]: Caddy Master/Techni benjamin ID = [id number] for Jaimee Mccoy POCT-GLUCOSE [id number] 18:10:00 Test Item Value Reference Range Interpretation Comments POC-GLUCOSE METER 115 mg/dL 70-110 H : TESTED A T [facility] 6720 (BEAKER) (test code = SHABBIR Jiménez [facility], 1538) 53856: Caddy Master/Techni benjamin ID = [id number] for BONI HDZ SARS-COV2/RT-PCR ([facility])2020-03-11 14:46:00 Test Item Value Reference Range Interpretation Comments SARS-COV2/RT-PCR (test Negative Not Detected, Negative, code = 6270858) See external report for linked test SARS-COV-2 PERFORMING LAB [facility] GONZALO (test code = 7277976) Negative result for this test determines that [...] 564(g) of the Act.Fact Sheet for Healthcare Providers:https://www.[employer]/sites/default/files/product/documents/Fact_Shemeagan reynoldsn_GQ_Luefdsyoa_Djiz_AHEN-OpC-7.pdfFact Sheet for Healthcare Patients:https://www.[employer]/sites/default/files/product/ documents/Uwui_Ppzml_Kdpvqelm_Xemc_TTOH-DdY-4.pdfPerforming Laboratory:[facility], [place] [address]WZJZ-[id number] METER 2020-03-11 12:29:00 Test Item Value Reference Range Interpretation Comments POC-GLUCOSE METER 117 mg/dL 70-110 H : TESTED A T [facility] 6720 (BEAKER) (test code = SHABBIR Jiménez [facility], 1538) [address]: Caddy Master/Techni benjamin ID = [id number] for RA MOS, BONI [id number] 06:39:00 Test Item Value Reference Range Interpretation Comments MAGNESIUM (BEAKER) 1.8 mg/dL 1.6-2.6 Specimen slightly (test code = 627) hemolyzed Caddy Master ID - PIAYA [id number] 06:39:00 Test Item Value Reference Range Interpretation Comments PHOSPHORUS (BEAKER) 2.1 mg/dL 2.3-4.7 L Specimen slightly (test code = 604) hemolyzed Caddy Master ID - PIAYA LCOMPREHENSIVE METABOLIC [id number] 06:39:00 Test Item Value Reference Range Interpretation [...] S NOT APPLICABLE FOR DIALYSIS PATIEN TS. Caddy Master ID - PIAYA LSpecimen slightly ictericCBC W/PLT COUNT & AUTO [id number] 05:56:00 Test Item Value Reference Range Interpretation [...] PERCENT (BEAKER) (test code = 2801) POCT-GLUCOSE [id number] 05:51:00 Test Item Value Reference Range Interpretation Comments POC-GLUCOSE METER 114 mg/dL 70-110 H : TESTED A T [facility] 6720 (BEAKER) (test code = SHABBIR CHAN [place], 1538) [address]: Caddy Master/Techni benjamin ID = [id number] for TRAVON REYES RAPID DRUG SCREEN, [id number] 04:12:00 Test Item Value Reference Range Interpretation [...] situations. Chain of custody not maintained. Some jnee-ioq-ipfbqus medications, as well as adulterants, may cause inaccurate results. Clinical correlation should be applied. A more comprehensivedrug screen or confirmation of a detected drug may be performed upon request.Caddy Master ID - WIN MURINALYSIS W/ REFLEX URINE [id number] 04:06:00 Test Item Value Reference Range Interpretation [...] = 1584) SOURCE(BEAKER) (test code = 2795) Caddy Master ID - [auto]Caddy Master ID - techOSMOLALITY, [id number] 04:02:00 Test Item Value Reference Range Interpretation Comments OSMOLALITY URINE (BEAKER) (test 630 mOsm/kg 50-1,200 mOsm/kg code = 614) CREATININE, RANDOM [id number] 03:18:00 Test Item Value Reference Range Interpretation Comments CREATININE URINE (BEAKER) (test 47.2 mg/dL code = 375) Reference Range: No NormalsOperator ID - WIN MSODIUM, RANDOM [id number] 03:18:00 Test Item Value Reference Range Interpretation Comments SODIUM URINE (BEAKER) (test code = 91 meq/L 243) Reference Range: No NormalsOperator ID - WIN MUREA NITROGEN, RANDOM URINE 2020-03-11 03:18:00 Test Item Value Reference Range Interpretation Comments UREA NITROGEN URINE (BEAKER) (test 798 mg/dL code = 538) Reference Range: No NormalsOperator ID - WIN MPOCT-GLUCOSE [id number] 01:01:00 Test Item Value Reference Range Interpretation Comments POC-GLUCOSE METER 114 mg/dL 70-110 H : TESTED A T [facility] 6720 (BEAKER) (test code = [facility], 153) [address]: Caddy Master/Techni benjamin ID = [id number] for BEKA BENSONN, TRAVON LACTIC ACID, [id number] 21:31:00 Test Item Value Reference Range Interpretation Comments LACTATE BLOOD VENOUS 1.31 mmol/L 0.50-2.20 Specime n slightly (2) (BEAKER) (test hemolyzed code = 2872) Caddy Master ID - DBSpecimen slightly ictericPOCT-GLUCOSE [id number] 18:10:00 Test Item Value Reference Range Interpretation Comments POC-GLUCOSE METER 114 mg/dL 70-110 H : TESTED A T [facility] 6720 (BEAKER) (test code = [facility], 153) [address]: Caddy Master/Techni benjamin ID = [id number] for KAVON DD, SANTOS T4, [id number] 17:23:00 Test Item Value Reference Range Interpretation Comments FREE T4 (BEAKER) (test code = 655) 1.00 ng/dL 0.70-1.48 Caddy Master ID - DBHEPATITIS PANEL, [id number] 17:23:00 Test Item Value Reference Range Interpretation Comments HEPATITIS A IGM ANTIBODY (BEAKER) Nonreactive Nonreactive (test code = 498) HEPATITIS B CORE IGM ANTIBODY Nonreactive Nonreactive (BEAKER) (test code = 645) HEPATITIS C ANTIBODY (BEAKER) Nonreactive Nonreactive (test code = 367) HEPATITIS B SURFACE ANTIGEN (2) Nonreactive Nonreactive (BEAKER) (test code = 2585) Caddy Master ID - DBTSH/FREE T4 IF [id number] 15:51:00 Test Item Value Reference Range Interpretation Comments THYROID STIMULATING HORMONE 0.299 uIU/mL 0.350-4.940 L (BEAKER) (test code = 772) Caddy Master ID - ALIDA [id number] 15:33:00 Test Item Value Reference Range Interpretation Comments CORTISOL, TOTAL (BEAKER) (test 58.2 ug/dL 3.7-19.4 H code = 2755) Caddy Master ID - JOHN [id number] 15:07:00 Test Item Value Reference Range Interpretation Comments PROCALCITONIN (BEAKER) (test code 1.40 ng/mL <0.05 H = 3036) SEPSIS RISK (ng/mL)Low: 0.05-0.50Intermediate: 0.51-2.00High: >=2.01B-TYPE NATRIURETIC FACTOR (BNP)2020-03-10 14:52:00 Test Item Value Reference Range Interpretation Comments B-TYPE NATRIURETIC PEPTIDE (BEAKER) 154 pg/mL 0-100 H (test code = 700) Caddy Master ID - JOHN CTROPONIN [id number] 14:52:00 Test Item Value Reference Range Interpretation [...] failure, acidosis, acute neurological disease, and persistent tachyarrhythmia.Caddy Master ID - JOHN COSMOLALITY, SERUM 2020-03-10 14:47:00 Test Item Value Reference Range Interpretation Comments OSMOLALITY, SERUM (BEAKER) (test 287 mOsm/kg 275-295 code = 615) [id number] 14:46:00 Test Item Value Reference Range Interpretation Comments MAGNESIUM (BEAKER) (test code = 1.3 mg/dL 1.6-2.6 L 627) Caddy Master ID - JOHN [id number] 14:46:00 Test Item Value Reference Range Interpretation Comments PHOSPHORUS (BEAKER) (test code = 1.8 mg/dL 2.3-4.7 L 604) Caddy Master ID - JOHN [id number] 14:46:00 Test Item Value Reference Range Interpretation Comments TRIGLYCERIDES (BEAKER) (test code = 220 mg/dL 540) TRIGLYCERIDE REFERENCE RANGELow Risk <150Borderline Risk 150-199High Risk 200-499Very High Risk>=500Operator ID - JOHN CSpecimen slightly icteric COMPREHENSIVE METABOLIC [id number] 14:46:00 Test Item Value Reference Range Interpretation [...] S NOT APPLICABLE FOR DIALYSIS PATIEN TS. Caddy Master ID - JUL CSpecimen slightly [id number] 14:46:00 Test Item Value Reference Range Interpretation Comments AMYLASE (BEAKER) (test code = 349) 397 U/L 25-125 H Caddy Master ID - JUL CSpecimen slightly [id number] 14:46:00 Test Item Value Reference Range Interpretation Comments LIPASE (BEAKER) (test code = 749) 689 U/L 8-78 H Caddy Master ID - JOHN CSpecimen slightly [id number] 14:41:00 Test Item Value Reference Range Interpretation Comments FIBRINOGEN LEVEL (BEAKER) (test 115 mg/dl 225-434 L code = 658) [id number] 14:38:00 Test Item Value Reference Range Interpretation Comments AMMONIA (BEAKER) 40 mol/L 18-72 Specimen sl ightly (test code = 348) hemolyzed Caddy Master ID - JUL CLACTIC ACID, [id number] 14:37:00 Test Item Value Reference Range Interpretation Comments LACTATE BLOOD VENOUS (2) (BEAKER) 2.61 mmol/L 0.50-2.20 H (test code = 2872) Caddy Master ID - JOHN CSpecimen slightly ictericPT/[id number] 14:36:00 Test Item Value Reference Range Interpretation [...] mechanical heart valves.CBC W/PLT COUNT & AUTO [id number] 14:33:00 Test Item Value Reference Range Interpretation [...] 0-1 PERCENT (BEAKER) (test code = 2801) CALCIUM, [id number] 14:30:00 Test Item Value Reference Range Interpretation Comments CALCIUM IONIZED (BEAKER) (test 1.05 mmol/L 1.12-1.27 L code = 698) PH, BLOOD (BEAKER) (test code = 7.33 1810) BLOOD GAS, [id number] 14:30:00 Test Item Value Reference Range Interpretation [...]
[2021-03-15 14:29] LABS: Protime INR 1.34
[2021-03-15 14:34] LABS: Basophils % 0.8 % (0-1.3); Hematocrit 39.2 % (36.0-45.0); Lymphocytes % 16.7 % (15.3-44.8); MPV 7.3 fL (7.6-11.3); RBC Red Blood Cell Count 3.96 M/uL (3.86-4.86)
[2021-03-15 14:45] LABS: ALT/SGPT 19 U/L (12-78); AST/SGOT 81 U/L (15-37); Albumin 3.5 g/dL (3.4-5.0); Alkaline Phosphatase 127 U/L (45-117); BUN Blood Urea Nitrogen 10 mg/dL (7-18); Bicarbonate 25 mmol/L (21-32); Bilirubin Direct 0.5 mg/dL (0-0.2); Bilirubin Total 1.6 mg/dL (0.2-1.0); Glucose Level 101 mg/dL (74-106); Potassium 3.1 mmol/L (3.5-5.1); Protein, Total 6.6 g/dL (6.4-8.2); Sodium Level 124 mmol/L (136-145)
[2021-03-15 14:46] LABS: Amylase 41 U/L (25-115); CKMB Creatine Kinase MB < 1.0 ng/mL (1.0-3.6); Creatine Phosphokinase 38 U/L (26-192); Lipase 196 U/L (73-393); Magnesium 1.7 mg/dL (1.8-2.4); NT PRO-BNP 62 pg/mL (<125); Troponin (Emerg Dept Use Only) < 0.02 ng/mL (0.0-0.045)
--- NOTE | 2021-03-15 14:49 | RAD REPORT ---
EXAM DESCRIPTION: RAD - Chest Single View - 03/15/2021 2:39 pm CLINICAL HISTORY: ams Chest pain. COMPARISON: Chest Single View dated 12/10/2020; Chest Single View dated 12/07/2020; Chest Single View dated 12/04/2020; Chest Single View dated 10/20/2020 FINDINGS: Portable technique limits examination quality. The lungs are grossly clear. The heart is normal in size. No displaced fractures. IMPRESSION: No acute intrathoracic process suspected.
--- NOTE | 2021-03-15 14:50 | RAD REPORT ---
EXAM DESCRIPTION: CT - Head Brain Wo Cont - 03/15/2021 2:26 pm CLINICAL HISTORY: MENTAL STATUS CHANGE Headache, drowsiness COMPARISON: Head Brain Wo Cont dated 11/28/2020; Head Brain Wo Cont dated 11/21/2020 TECHNIQUE: All CT scans are performed using dose optimization technique as appropriate and may inclu de automated exposure control or mA/KV adjustment according to patient size. FINDINGS: No intracranial hemorrhage, hydrocephalus or extra-axial fluid collection.Moderate general ized brain atrophy is present with moderate periventricular and deep white matter chronic microvascul ar ischemic changes.No areas of brain edema or evidence of midline shift. The paranasal sinuses and mastoids are clear. The calvarium is intact. IMPRESSION: No acute intracranial abnormality.
[2021-03-15] MEDS ORDERED: TENECTEPLASE 50 MG/10 ML VIAL IV ONE (15:37)
[2021-03-15] MEDS ORDERED: CEFTRIAXONE/SWI 1gm 1 GM/10 ML SYR ONE (15:41)
[2021-03-15] MEDS ORDERED: NA CHLORIDE 0.9% 1,000 ML ONE ×3 (15:41→20:03)
--- NOTE | 2021-03-15 17:10 | ER ---
Nurse's Notes [facility] Name: Ciara Faith Age: 71 yrs Sex: Female : 1950 Arrival Date: 03/15/2021 Time: 13:54 Bed 7 Private MD: Diagnosis: Alcohol abuse;Hypokalemia;Hypomagnesemia;Altered mental status, unspecified;Hypo-osmolality and hyponatremia;Alcohol abuse with intoxication Presentation: 03/15 13:55 Chief complaint: EMS states: called by family stating pt has been confused today, pt is sv a daily drinker. Pt has not been eating for the past week. BS-127 BP 134/94 HR-100. Coronavirus screen: Vaccine status: Patient reports receiving the 1st dose of the Covid vaccine. Client denies travel out of the [place] in the last 14 days. Ebola Screen: No symptoms or risks identified at this time. Initial Sepsis Screen: Does the patient meet any 2 criteria? HR > 90 bpm. No. Patient's initial sepsis screen is negative. Does the patient have a suspected source of infection? No. Patient's initial sepsis screen is negative. Risk Assessment: Do you want to hurt yourself or someone else? Patient reports no desire to harm self or others. Onset of symptoms was March 15, 2021. 13:55 Method Of Arrival: EMS: [facility] sv 13:55 Acuity: LINA 2 sv Triage Assessment: 13:55 General: Appears in no apparent distress. comfortable, slender, well developed, sv Behavior is calm, cooperative, appropriate for age. Pain: Denies pain. Neuro: Level of Consciousness is awake, alert, obeys commands, confused, Oriented to person, place, Moves all extremities. Full function Speech is normal. Cardiovascular: Patient's skin is warm and dry. Pulses are palpable in right radial artery and left radial artery Rhythm is sinus rhythm. Respiratory: Airway is patent Respiratory effort is even, unlabored, Respiratory pattern is regular, symmetrical. Derm: Skin is intact, Skin is normal. Historical: - Allergies: 13:59 [place]; sv - Home Meds: 13:59 Xifaxan 550 mg Oral tab 2 times per day [Active]; Constulose 10 gram/15 mL Oral soln 15 sv mL 3 times per day [Active]; Klor-Con M20 20 mEq Oral TbTQ 1 tab 2 times per day [Active]; folic acid 1 mg Oral tab 1 tab once daily [Active]; Protonix 20 mg Oral TbEC 2 tabs once daily [Active]; Lasix 40 mg oral tab once daily [Active]; spironolactone 25 mg Oral tab 1 tab once daily [Active]; - PMHx: 13:59 Alcoholism; GERD; UTI; sv 18:31 Fatty liver; Esophageal dilatation due to couldn't swallow; sv - PSHx: 18:31 wrist; sv - Immunization history:: Adult Immunizations up to date. - Social history:: Smoking status: . Screenin:01 Abuse screen: Denies threats or abuse. Denies injuries from another. Nutritional sv screening: No deficits noted. Tuberculosis screening: No symptoms or risk factors identified. Fall Risk No fall in past 12 months (0 pts). No secondary diagnosis (0 pts). IV access (20 points). Ambulatory Aid- None/Bed Rest/Nurse Assist (0 pts). Gait- Normal/Bed Rest/Wheelchair (0 pts) Mental Status- Oriented to own ability (0 pts). Total [place] Fall Scale indicates No Risk (0-24 pts). Assessment: 15:20 Reassessment: Patient appears in no apparent distress at this time. No changes from sv previously documented assessment. Patient and/or family updated on plan of care and expected duration. Pain level reassessed. 16:20 Reassessment: Patient appears in no apparent distress at this time. No changes from sv previously documented assessment. Patient and/or family updated on plan of care and expected duration. Pain level reassessed. 17:36 Reassessment: Patient appears in no apparent distress at this time. No changes from sv previously documented assessment. Patient and/or family updated on plan of care and expected duration. Pain level reassessed. 17:50 Reassessment: Called and updated on plan of care. Eric Faith [phone]. ss Vital Signs: 13:55 BP 111 / 59; Pulse 91; Resp 12; Temp 97; Pulse Ox 97% ; Pain 0/10; sv 14:45 BP 105 / 55; Pulse 88; Resp 13; Pulse Ox 100% ; sv 15:45 BP 111 / 48; Pulse 93; Resp 12; Pulse Ox 99% on R/A; sv 16:30 Pulse 101; Resp 12; Pulse Ox 99% ; sv 17:40 BP 121 / 74; Pulse 102; Resp 12; Pulse Ox 98% on R/A; sv 18:09 Weight 56 kg; Height 5 ft. 4 in. (162.56 cm); sv 18:09 Body Mass Index 21.19 (56.00 kg, 162.56 cm) sv ED Course: 13:54 Patient arrived in ED. sv 13:54 Kari Wan RN is Primary Nurse. sv 13:59 Triage completed. sv 14:00 Patient has correct armband on for positive identification. Bed in low position. Call sv light in reach. Side rails up X2. fire code inspector on. Pulse ox on. NIBP on. Door closed. Head of bed elevated. 14:01 Arm band placed on. sv 14:10 Ra Sanabria MD is Attending Physician. cabrera 14:27 CT Head Brain wo Cont In Process Unspecified. EDMS 14:39 XRAY Chest (1 view) In Process Unspecified. EDMS 15:20 Inserted saline lock: 22 gauge in left forearm, using aseptic technique. ,using aseptic sv technique. diffusics. 16:20 CBC with Diff Sent. sv 16:20 Basic Metabolic Panel Sent. sv 16:58 ED physician to see patient. sv 17:09 Vick Melvin MD is Hospitalizing Provider. cabrera 17:25 Hospitalizing Provider role handed off by Vick Melvin MD cabrera 17:25 Milo Sands DO is Hospitalizing Provider. cabrera 17:25 IV discontinued, intact, Pressure dressing applied, to the lower L FA. sv 17:30 Inserted saline lock: 22 gauge in left forearm, using aseptic technique. ,using aseptic sv technique. diffusics. 18:24 No provider procedures requiring assistance completed. Patient admitted, IV remains in hb place. 19:06 Primary Nurse role handed off by Kari Wan RN sv 03/16 06:45 Accessed peripheral vein via ultrasound, utilizing dynamic ultrasound technique using bb per hospital protocol. 20 g 10 cm powerglide to left upper arm flushes easily no blood return. 07:50 Kari Wan RN is Primary Nurse. sv Administered Medications: 03/15 18:30 Discontinued: NS 0.9% 1000 ml IV at 125 ml/hr continuous sv 15:22 Drug: NS 0.9% 1000 ml Route: IV; Rate: 125 ml/hr; Site: left forearm; sv 15:22 Drug: Rocephin (cefTRIAXone) 1 grams Route: IV; Rate: per protocol; Site: left forearm; sv 15:24 Follow up: Response: No adverse reaction; IV Status: Completed infusion; IV Intake: 10mlsv 17:07 Not Given (Duplicate Order): NS 0.9% 1000 ml IV at 1 bolus Per protocol; 1000 mL bolus cabrera 17:36 Drug: foLIC Acid 1 mg Route: IVPB; Site: left forearm; sv 17:40 Follow up: Response: No adverse reaction; IV Status: Completed infusion sv 17:36 Drug: Magnesium Sulfate 1 grams Route: IVPB; Infused Over: 1 hrs; Site: left forearm; sv 18:29 Follow up: Response: No adverse reaction; IV Status: Completed infusion; IV Intake: sv 100ml 17:36 Drug: Banana Bag - (NS 0.9% 1000 ml, foLIC Acid 1 mg, Thiamine 100 mg, Multivitamin 1 sv amp) Route: IV; Rate: 100 ml/hr; Site: left forearm; 18:29 Follow up: Response: No adverse reaction; IV Status: Infusion continued upon admission sv 17:37 Drug: Thiamine 100 mg Route: IV; Rate: bolus; Site: left forearm; sv 17:40 Follow up: Response: No adverse reaction; IV Status: Completed infusion sv 17:41 Drug: Potassium Effervescent Tablet 25 mEq Route: PO; sv 18:28 Follow up: Response: No adverse reaction sv Intake: 15:24 IV: 10ml; Total: 10ml. sv 18:29 IV: 100ml; Total: 110ml. sv Outcome: 17:09 Decision to Hospitalize by Provider. cabrera 18:24 Admitted to ER Hold. Please see [facility] for further documentation. hb 18:24 Condition: stable 18:24 Instructed on the need for admit, Demonstrated understanding of instructions. 03/16 16:56 Patient left the ED. hb Signatures: Dispatcher [employer] EDKari Chen RN RN sv Anderson, Corey, MD MD cha Ballard, Brenda, RN RN bb Smirch, Shelby, RN RN ss Baxter, Heather, RN RN hb Corrections: (The following items were deleted from the chart) 03/15 14:01 13:59 Home Meds: magnesium oxide 250 mg Oral tab; sv sv 14:01 13:59 Home Meds: Multiple Vitamins Oral tab; sv sv 14:01 13:59 Home Meds: Vitamin B-12 1,000 mcg Oral tab; sv sv 14:01 13:59 Home Meds: zinc sulfate 220 (50) mg Oral cap; sv sv 18:32 18:31 Home Meds: magnesium oxide 250 mg Oral tab; sv sv 18:32 18:31 Home Meds: Multiple Vitamins Oral tab; sv sv 18:32 18:31 Home Meds: Vitamin B-12 1,000 mcg Oral tab; sv sv 18:32 18:31 Home Meds: zinc sulfate 220 (50) mg Oral cap; sv sv
--- NOTE | 2021-03-15 17:11 | EDPHYS ---
Physician Documentation [facility] Name: Ciara Faith Age: 71 yrs Sex: Female : 1950 Arrival Date: 03/15/2021 Time: 13:54 Bed 7 Private MD: ED Physician Ra Sanabria HPI: 03/15 17:02 This 71 yrs old Female presents to ER via EMS with complaints of Altered cabrera Mental Status. 17:02 The patient presents with confusion, decreased mental status. Onset: The cabrera symptoms/episode began/occurred just prior to arrival. Possible causes: alcohol. Associated signs and symptoms: The patient has no apparent associated signs or symptoms. Patient's baseline: Neuro: alert and fully oriented. Historical: - Allergies: 13:59 [place]; sv - Home Meds: 13:59 Xifaxan 550 mg Oral tab 2 times per day [Active]; Constulose 10 gram/15 mL Oral soln 15 sv mL 3 times per day [Active]; Klor-Con M20 20 mEq Oral TbTQ 1 tab 2 times per day [Active]; folic acid 1 mg Oral tab 1 tab once daily [Active]; Protonix 20 mg Oral TbEC 2 tabs once daily [Active]; Lasix 40 mg oral tab once daily [Active]; spironolactone 25 mg Oral tab 1 tab once daily [Active]; - PMHx: 13:59 Alcoholism; GERD; UTI; sv 18:31 Fatty liver; Esophageal dilatation due to couldn't swallow; sv - PSHx: 18:31 wrist; sv - Immunization history:: Adult Immunizations up to date. - Social history:: Smoking status: . ROS: 17:03 Constitutional: Negative for fever, chills, and weight loss, Eyes: Negative for injury, cabrera pain, redness, and discharge, ENT: Negative for injury, pain, and discharge, Neck: Negative for injury, pain, and swelling, Cardiovascular: Negative for chest pain, palpitations, and edema, Respiratory: Negative for shortness of breath, cough, wheezing, and pleuritic chest pain, Abdomen/GI: Negative for abdominal pain, nausea, vomiting, diarrhea, and constipation, Back: Negative for injury and pain, : Negative for injury, bleeding, discharge, and swelling, MS/Extremity: Negative for injury and deformity, Skin: Negative for injury, rash, and discoloration, Psych: Negative for depression, anxiety, suicide ideation, homicidal ideation, and hallucinations, Allergy/Immunology: Negative for hives, rash, and allergies, Endocrine: Negative for neck swelling, polydipsia, polyuria, polyphagia, and marked weight changes, Hematologic/Lymphatic: Negative for swollen nodes, abnormal bleeding, and unusual bruising. 17:03 Neuro: Positive for 17:03 Neuro: Positive for altered mental status, weakness. cabrera Exam: 17:03 Constitutional: This is a well developed, well nourished patient who is awake, alert, cabrera and in no acute distress. Head/Face: Normocephalic, atraumatic. Eyes: Pupils equal round and reactive to light, extra-ocular motions intact. Lids and lashes normal. Conjunctiva and sclera are non-icteric and not injected. Cornea within normal limits. Periorbital areas with no swelling, redness, or edema. ENT: Nares patent. No nasal discharge, no septal abnormalities noted. Tympanic membranes are normal and external auditory canals are clear. Oropharynx with no redness, swelling, or masses, exudates, or evidence of obstruction, uvula midline. Mucous membranes moist. Neck: Trachea midline, no thyromegaly or masses palpated, and no cervical lymphadenopathy. Supple, full range of motion without nuchal rigidity, or vertebral point tenderness. No Meningismus. Chest/axilla: Normal chest wall appearance and motion. Nontender with no deformity. No lesions are appreciated. Cardiovascular: Regular rate and rhythm with a normal S1 and S2. No gallops, murmurs, or rubs. Normal PMI, no JVD. No pulse deficits. Respiratory: Lungs have equal breath sounds bilaterally, clear to auscultation and percussion. No rales, rhonchi or wheezes noted. No increased work of breathing, no retractions or nasal flaring. Abdomen/GI: Soft, non-tender, with normal bowel sounds. No distension or tympany. No guarding or rebound. No evidence of tenderness throughout. Back: No spinal tenderness. No costovertebral tenderness. Full range of motion. Female : Normal external genitalia. Skin: Warm, dry with normal turgor. Normal color with no rashes, no lesions, and no evidence of cellulitis. MS/ Extremity: Pulses equal, no cyanosis. Neurovascular intact. Full, normal range of motion. Neuro: Awake and alert, GCS 15, oriented to person, place, time, and situation. Cranial nerves II-XII grossly intact. Motor strength 5/5 in all extremities. Sensory grossly intact. Cerebellar exam normal. Normal gait. Psych: Awake, alert, with orientation to person, place and time. Behavior, mood, and affect are within normal limits. 19:37 ECG was reviewed by the Attending Physician. cabrera Vital Signs: 13:55 BP 111 / 59; Pulse 91; Resp 12; Temp 97; Pulse Ox 97% ; Pain 0/10; sv 14:45 BP 105 / 55; Pulse 88; Resp 13; Pulse Ox 100% ; sv 15:45 BP 111 / 48; Pulse 93; Resp 12; Pulse Ox 99% on R/A; sv 16:30 Pulse 101; Resp 12; Pulse Ox 99% ; sv 17:40 BP 121 / 74; Pulse 102; Resp 12; Pulse Ox 98% on R/A; sv 18:09 Weight 56 kg; Height 5 ft. 4 in. (162.56 cm); sv 18:09 Body Mass Index 21.19 (56.00 kg, 162.56 cm) sv MDM: 14:10 Patient medically screened. cabrera 17:05 Differential Diagnosis: CVA, electrolyte abnormality, alcohol intoxication, cabrera hypoglycemia, overdose, TIA, volume depletion. Data reviewed: vital signs, nurses notes, lab test result(s), EKG, radiologic studies, CT scan, plain films. Data interpreted: property assessment monitor: rate is 101 beats/min, rhythm is regular, Pulse oximetry: on room air is 99 %. Test interpretation: by ED physician or midlevel provider: ECG, plain radiologic studies. Counseling: I had a detailed discussion with the patient and/or guardian regarding: the historical points, exam findings, and any diagnostic results supporting the discharge/admit diagnosis. 03/15 13:55 Order name: Basic Metabolic Panel 03/15 13:55 Order name: CBC with Diff 03/15 13:55 Order name: LFT's; Complete Time: 16:56 03/15 13:55 Order name: Magnesium; Complete Time: 16:56 03/15 13:55 Order name: NT PRO-BNP; Complete Time: 16:56 03/15 13:55 Order name: PT-INR; Complete Time: 16:56 sv 03/15 13:55 Order name: Troponin (emerg Dept Use Only); Complete Time: 16:56 sv 03/15 13:55 Order name: Amylase, Serum; Complete Time: 16:56 sv 03/15 13:55 Order name: Blood Culture Adult (2) 03/15 13:55 Order name: CPK; Complete Time: 16:56 sv 03/15 13:55 Order name: Ckmb; Complete Time: 16:56 sv 03/15 13:55 Order name: Lactate; Complete Time: 16:56 sv 03/15 13:55 Order name: Lipase; Complete Time: 16:56 sv 03/15 13:55 Order name: Procalcitonin; Complete Time: 16:56 sv 03/15 13:55 Order name: Ptt, Activated; Complete Time: 16:56 sv 03/15 13:55 Order name: Urine Microscopic Only 03/15 13:55 Order name: AMMONIA; Complete Time: 16:56 03/15 13:56 Order name: Basic Metabolic Panel; Complete Time: 16:56 EDAR 03/15 13:56 Order name: CBC with Automated Diff; Complete Time: 16:56 EDAR 03/15 15:40 Order name: SARS-COV-2 RT PCR; Complete Time: 16:56 EDAR 03/15 16:57 Order name: Urine Culture [facility] 03/15 16:57 Order name: Urine Culture [facility] 03/15 17:01 Order name: ETOH Level; Complete Time: 19:40 em1 03/15 17:08 Order name: Urine Osmolality [facility] 03/15 17:08 Order name: Urine Sodium Random [facility] 03/15 17:08 Order name: Osmolality, Serum [facility] 03/15 21:35 Order name: Lactate Sepsis 2 HR Follow-up; Complete Time: 01:35 EDAR 03/16 07:44 Order name: CBC with Automated Diff [facility] 03/15 13:55 Order name: XRAY Chest (1 view); Complete Time: 16:56 03/15 13:55 Order name: EKG; Complete Time: 13:56 sv 03/15 13:55 Order name: Cardiac monitoring; Complete Time: 14:32 sv 03/15 13:55 Order name: EKG - Nurse/Tech; Complete Time: 14:32 sv 03/15 13:55 Order name: IV Saline Lock; Complete Time: 16:59 sv 03/15 13:55 Order name: Labs collected and sent; Complete Time: 16:59 sv 03/15 13:55 Order name: O2 Per Protocol; Complete Time: 14:32 sv 03/15 13:55 Order name: O2 Sat Monitoring; Complete Time: 14:32 sv 03/15 13:55 Order name: IV Saline Lock - Large Bore; Complete Time: 16:58 sv 03/15 14:11 Order name: CT Head Brain wo Cont; Complete Time: 16:56 cabrera 03/16 07:57 Order name: Basic Metabolic Panel EDMS 03/16 08:44 Order name: CBC Smear Scan EDMS 03/16 15:19 Order name: RAD EDMS 03/16 15:40 Order name: Potassium EDMS 03/16 15:44 Order name: Lactate EDMS EC:37 Rate is 92 beats/min. Rhythm is regular. QRS [place] is Normal. [place] interval is normal. QRS cabrera interval is normal. QT interval is normal. No Q waves. T waves are Normal. ST Segment is depressed in leads II, III, aVF, V1, V2, V3, V4, V5, V6. Clinical impression: NSR w/ Non-specific ST/T Changes. Interpreted by me. Reviewed by me. Administered Medications: 18:30 Discontinued: NS 0.9% 1000 ml IV at 125 ml/hr continuous sv 15:22 Drug: NS 0.9% 1000 ml Route: IV; Rate: 125 ml/hr; Site: left forearm; sv 15:22 Drug: Rocephin (cefTRIAXone) 1 grams Route: IV; Rate: per protocol; Site: left forearm; sv 15:24 Follow up: Response: No adverse reaction; IV Status: Completed infusion; IV Intake: 10mlsv 17:07 Not Given (Duplicate Order): NS 0.9% 1000 ml IV at 1 bolus Per protocol; 1000 mL bolus cabrera 17:36 Drug: foLIC Acid 1 mg Route: IVPB; Site: left forearm; sv 17:40 Follow up: Response: No adverse reaction; IV Status: Completed infusion sv 17:36 Drug: Magnesium Sulfate 1 grams Route: IVPB; Infused Over: 1 hrs; Site: left forearm; sv 18:29 Follow up: Response: No adverse reaction; IV Status: Completed infusion; IV Intake: sv 100ml 17:36 Drug: Banana Bag - (NS 0.9% 1000 ml, foLIC Acid 1 mg, Thiamine 100 mg, Multivitamin 1 sv amp) Route: IV; Rate: 100 ml/hr; Site: left forearm; 18:29 Follow up: Response: No adverse reaction; IV Status: Infusion continued upon admission sv 17:37 Drug: Thiamine 100 mg Route: IV; Rate: bolus; Site: left forearm; sv 17:40 Follow up: Response: No adverse reaction; IV Status: Completed infusion sv 17:41 Drug: Potassium Effervescent Tablet 25 mEq Route: PO; sv 18:28 Follow up: Response: No adverse reaction sv Disposition Summary: 03/15/21 17:09 Hospitalization Ordered Hospitalization Status: Observation cabrera Condition: Stable cabrera Problem: new cabrera Symptoms: have improved cabrera Bed/Room Type: Standard cabrera Provider: Milo Sands(03/15/21 17:25) cabrera Location: [facility] [place] ER HOLD(03/15/21 18:24) Room Assignment: ERHOLD-(03/15/21 18:24) hb Diagnosis - Alcohol abuse cabrera - Hypokalemia cabrera - Hypomagnesemia cbarera - Altered mental status, unspecified cabrera - Hypo-osmolality and hyponatremia cabrera - Alcohol abuse with intoxication cabrera Forms: - Medication Reconciliation Form cabrera - SBAR form cabrera Signatures: Dispatcher [employer] EDKari Chen RN RN sv Anderson, Corey, MD MD cha Attema, Lee, INTERNET SALES CONSULTANT-C INTERNET SALES CONSULTANT-Cla1 Linda Downey RN RN Corrections: (The following items were deleted from the chart) 14:01 13:59 Home Meds: magnesium oxide 250 mg Oral tab; sv sv 14:01 13:59 Home Meds: Multiple Vitamins Oral tab; sv sv 14:01 13:59 Home Meds: Vitamin B-12 1,000 mcg Oral tab; sv sv 14:01 13:59 Home Meds: zinc sulfate 220 (50) mg Oral cap; sv sv 14:41 14:05 CORONAVIRUS+MR.LAB.BRZ ordered. EDMS EDMS 17:02 17:02 ETHANOL+C.LAB.BRZ ordered. EDMS EDMS 17:25 17:09 Vick Melvin cha cabrera 18:24 17:09 Telemetry/MedSurg (observation) cabrera hb 18:24 17:09 cabrera hb 18:32 18:31 Home Meds: magnesium oxide 250 mg Oral tab; sv sv 18:31 Home Meds: Multiple Vitamins Oral tab; sv sv 18:31 Home Meds: Vitamin B-12 1,000 mcg Oral tab; sv sv 18:31 Home Meds: zinc sulfate 220 (50) mg Oral cap; sv sv
[2021-03-15] MEDS ORDERED: MAGNESIUM SULFATE 1 gm IVPB 1 GM/100 ML BAG IV ONE (17:31)
[2021-03-15] MEDS ORDERED: THIAMINE 200 MG/2 ML INJ ONE (17:31)
[2021-03-15] MEDS ORDERED: POTASSIUM 25 MEQ EFFERV TAB ONE (17:31)
[2021-03-15] MEDS ORDERED: MULTIVITAMINS 10 ML VIAL (INJ) IV ONE (17:32)
[2021-03-15] MEDS ORDERED: NA CHLORIDE 0.9% 50 ML ONE (17:32)
[2021-03-15] MEDS ORDERED: FOLIC ACID 5 MG/ML VIAL ONE (17:32)
--- NOTE | 2021-03-15 17:52 | P.HP ---
Certification for Inpatient Patient admitted to: Observation With expected LOS: <2 Midnights Patient will require the following post-hospital care: None Practitioner: I am a practitioner with admitting privileges, knowledge of patient current condition, hospital course, and medical plan of care. Services: Services provided to patient in accordance with Admission requirements found in Title 42 Section 412.3 of the Code of Federal Regulations Patient History Date of Service: 03/15/21 Primary Care Provider: Wenceslao Reason for admission: AMS History of Present Illness: This is a 71-year-old female that was brought in by EMS to the emergency room with complaints of altered mentation. Patient per her is a known alcohol abuser. Last drink was last night. Patient was altered this morning. Patient was worked up in the emergency room and found to have a sodium of 124, potassium 3.1, chloride 83, bicarb 25, BUN 10, creatinine 0.72, glucose 101. Patient had a white cell count of 5.8, hemoglobin 14.0, hematocrit 39.2, platelet 144. Magnesium was 1.7, lactate markedly elevated at 6.1. Troponin was negative, chest x-ray was negative, CT of the head was negative for acute bleed or ischemia, SARS PCR was negative as well. Patient has had mild improvement with fluid resuscitation. Medicine was consulted at that time for further evaluation and admission for her altered mental status. Allergies hydrocodone [[place]] Allergy (Severe, Verified 05/29/20 23:21) Hives/Rash Home medications list reviewed: Yes Home Medications: Travoprost [Travatan Z*] 1 gtt EACH EYE BEDTIME 05/19/18 Pantoprazole [Protonix Tab*] 40 mg PO ACB #30 tab 05/29/18 Folic Acid 1 mg PO DAILY 05/29/20 Ensure [place] 237 ml PO BID can 12/12/20 Furosemide [Lasix] 40 mg PO BIDL #60 tab 12/12/20 Rifaximin [Xifaxan] 550 mg PO BID tablet 12/12/20 Thiamine HCl [Vitamin B-1*] 100 mg PO DAILY tablet 12/12/20 - Past Medical/Surgical History Diabetic: No -: Fatty liver -: Alcohol abuse -: Former tobacco use -: GERD -: History of Recurrent UTI -: 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 She has 3 children. 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 She works as a tax filer. - Family History Mother -: Cancer Father -: Lung disease Notes: emphysema - Social History Smoking Status: Never smoker Smoking therapy provided: No Alcohol use: Yes CD- Drugs: No Caffeine use: No Place of Residence: Home Review of Systems General: As per HPI Eyes: Unremarkable ENT: Unremarkable Respiratory: Unremarkable Cardiovascular: Unremarkable Gastrointestinal: Unremarkable Musculoskeletal: Unremarkable Integumentary: Unremarkable Neurological: As per HPI Lymphatics: Unremarkable Physical Examination - Vital Signs Temperature: 97 F Blood Pressure: 111/59 Pulse: 91 Respirations: 12 Pulse Ox (%): 97 (Room air) - Physical Exam General: Alert, In no apparent distress, Oriented x2, Cooperative HEENT: PERRLA, Other (Mucous membranes dry), EOMI Neck: Supple, 2+ carotid pulse no bruit, JVD not distended Respiratory: Clear to auscultation bilaterally, Normal air movement Cardiovascular: No edema, Normal pulses, Regular rate/rhythm, Normal S1 S2, No gallops, No rubs, No murmurs Capillary refill: <2 Seconds Gastrointestinal: Normal bowel sounds, Soft and benign, Non-distended, No ascites, No tenderness, No masses, No rebound, No guarding Musculoskeletal: No clubbing, No swelling, No contractures, No erythema, No tenderness, No warmth Integumentary: No rashes, No breakdown, No significant lesion, No tenderness/swelling, No erythema, No warmth, No cyanosis Neurological: Normal speech, Normal strength at 5/5 x4 extr, Normal tone, Sensation intact, Cranial nerves 3-12 intact, Other (Patient still confused as to what city she is currently in and her age. Cannot recall much of last night as well.) Lymphatics: No axilla or inguinal lymphadenopathy - Studies Laboratory Data (last 24 hrs) 03/15/21 14:05: PT 15.4 H, INR 1.34, APTT 27.8 03/15/21 14:05: WBC 5.80, Hgb 14.0, Hct 39.2, Plt Count 144 L 03/15/21 14:05: Sodium 124 L, Potassium 3.1 L, BUN 10, Creatinine 0.72, Glucose 101, Magnesium 1.7 L, Total Bilirubin 1.6 H, AST 81 H, ALT 19, Alkaline Phosphatase 127 H, Amylase 41, Lipase 196 Assessment and Plan - Problems (Diagnosis) (1) Altered mental status Current Visit: Yes Status: Acute Qualifiers: Altered mental status type: disorientation Qualified Code(s): R41.0 - Disorientation, unspecified (2) Dehydration Current Visit: Yes Status: Acute (3) Hypokalemia Onset Date: 06/30/17 Current Visit: Yes Status: Acute (4) Hypomagnesemia Onset Date: 06/30/17 Current Visit: Yes Status: Acute (5) Alcohol abuse Onset Date: 05/20/18 Current Visit: Yes Status: Chronic (6) Hyponatremia Onset Date: 05/20/18 Current Visit: Yes Status: Acute - Plan 1. Patient will be admitted to telemetry unit and observed overnight 2. Patient will have continuous hydration throughout the night will be put on a regular diet and electrolytes will be checked in the morning including lactate. Will be replaced as needed 3. Fall precautions put on patient with her altered mental status 4. Vital signs will be checked per protocol 5. As long as patient is altered mental intervention improves throughout the night patient will be able to go home tomorrow. Discharge Plan: Home Plan to discharge in: 24 Hours - Advance Directives Does patient have a Living Will: Yes Does patient have a Durable POA for Healthcare: No - Code Status/Comfort Care Code Status Assessed: No Critical Care: No
[2021-03-15] MEDS ORDERED: ONDANSETRON 4 MG/2 ML VIAL IV PRN (18:09)
[2021-03-15] MEDS ORDERED: NA CHLORIDE 0.9% 1,000 ML IV SCH (18:09)
[2021-03-15 18:19] VITALS: BMI 21.2
--- NOTE | 2021-03-16 06:39 | P.PN ---
Subjective Date of Service: 03/16/21 Primary Care Provider: Wenceslao Chief Complaint: AMS Subjective: Improving, Doing well Physical Examination - Vital Signs Temperature: 97.6 F Blood Pressure: 140/76 Pulse: 112 Respirations: 16 Pulse Ox (%): 100 - Studies Laboratory Data (last 24 hrs) 03/15/21 14:05: PT 15.4 H, INR 1.34, APTT 27.8 03/15/21 14:05: WBC 5.80, Hgb 14.0, Hct 39.2, Plt Count 144 L 03/15/21 14:05: Sodium 124 L, Potassium 3.1 L, BUN 10, Creatinine 0.72, Glucose 101, Magnesium 1.7 L, Total Bilirubin 1.6 H, AST 81 H, ALT 19, Alkaline Phosphatase 127 H, Amylase 41, Lipase 196 Assessment & Plan Discharge Plan: Home Plan to discharge in: 24 Hours Physician Review Additional Text: COVID: Negative CXR: COMPARISON: Chest Single View dated 12/10/2020; Chest Single View dated 12/07/2020; Chest Single View dated 12/04/2020; Chest Single View dated 10/20/2020 FINDINGS: Portable technique limits examination quality. The lungs are grossly clear. The heart is normal in size. No displaced fractures. IMPRESSION: No acute intrathoracic process suspected. CT Head: COMPARISON: Head Brain Wo Cont dated 11/28/2020; Head Brain Wo Cont dated 11/21/2020 TECHNIQUE: All CT scans are performed using dose optimization technique as appropriate and may include automated exposure control or mA/KV adjustment according to patient size. FINDINGS: No intracranial hemorrhage, hydrocephalus or extra-axial fluid collection.Moderate generalized brain atrophy is present with moderate periventricular and deep white matter chronic microvascular ischemic changes.No areas of brain edema or evidence of midline shift. The paranasal sinuses and mastoids are clear. The calvarium is intact. IMPRESSION: No acute intracranial abnormality. Physical Exam: General: Alert, In no apparent distress, Oriented x2, Cooperative HEENT: PERRLA, Other (Mucous membranes dry), EOMI Neck: Supple, 2+ carotid pulse no bruit, JVD not distended Respiratory: Clear to auscultation bilaterally, Normal air movement Cardiovascular: No edema, Normal pulses, Regular rate/rhythm, Normal S1 S2, No gallops, No rubs, No murmurs Capillary refill: <2 Seconds Gastrointestinal: Normal bowel sounds, Soft and benign, Non-distended, No ascites, No tenderness, No masses, No rebound, No guarding Musculoskeletal: No clubbing, No swelling, No contractures, No erythema, No tenderness, No warmth Integumentary: No rashes, No breakdown, No significant lesion, No tenderness/swelling, No erythema, No warmth, No cyanosis Neurological: Normal speech, Normal strength at 5/5 x4 extr, Normal tone, Sensation intact, Cranial nerves 3-12 intact, patient appears to be at her baseline level. Lymphatics: No axilla or inguinal lymphadenopathy Impression: Acute encephalopathy with dehydration related to alcohol abuse and likely underlying dementia Hypomagnesia Hyponatremia Cirrhosis GERD Plan: Patient doing well at this time. Patient back to her baseline. Hyponatremia improved. Spoke to her at length and concerning her alcohol use. Patient has alcohol abuse. She drinks whenever she wakes up. I address this in detail on the importance of weaning her off of alcohol and eventually cessation entirely. A plan was formulated with the patient and . Her medications were reviewed in detail. Patient to see GI in [place] to further address her cirrhosis. Discontinue Xifaxan due to cost. Continue lactulose twice daily to maintain 2-3 bowel moments per day. Continue Protonix daily. Discontinue Aldactone. Will decrease Lasix to 20 mg daily as needed for increasing edema. No need for Lasix at this time. Fall precautions in place. Continue with home health and physical therapy at discharge. Discharge Plan: Home CODE STATUS: Full code Advance care minutes: Continue home health and physical therapy at discharge Time Spent Managing Pts Care (In Minutes): 55
[2021-03-16 07:42] LABS: Absolute Lymphocytes (CBC) 0.7 K/uL (0.7-4.9); Basophils % 0.5 % (0-1.3); Hematocrit 35.6 % (36.0-45.0); Lymphocytes % 12.5 % (15.3-44.8); MPV 7.9 fL (7.6-11.3); RBC Red Blood Cell Count 3.53 M/uL (3.86-4.86)
--- NOTE | 2021-03-16 07:44 | EKG ---
Test Date: 2021-03-15 Test Time: 13:47:55 Flower Arranger: KARINA MEASUREMENT RESULTS: Intervals: Rate: 92 FL: 144 QRSD: 86 QT: 400 QTc: 494 [place]: P: 65 FL: 144 QRS: -25 T: 83 INTERPRETIVE STATEMENTS: Normal sinus rhythm Nonspecific T wave abnormality Abnormal ECG Compared to ECG 12/08/2020 10:33:13 No significant changes Electronically Signed On 03-16-21 07:41:58 CDT by Prabhjot Delcid
[2021-03-16 07:50] LABS: Potassium 3.1 mmol/L (3.5-5.1)
[2021-03-16] MEDS ORDERED: POTASSIUM CL SA 10 MEQ TAB PO ONE ×2 (08:26→09:19)
[2021-03-16 08:42] LABS: White Blood Cell Scan OK (OK)
[2021-03-16 08:43] LABS: Anisocytosis 1+; Blood Morphology Comment NOTED (NOT SEEN); Macrocytosis 1+; Platelet Estimate DECR
--- NOTE | 2021-03-16 10:43 | P.DS ---
Admission Date: 03/15/21 Discharge Date: 03/16/21 Primary Care Provider: Dr. Billy Disposition: DC HOME/HOME HEALTH CARE Discharge Condition: GOOD Reason for Admission: AMS Consultations: none Procedures: COVID: Negative CXR: COMPARISON: Chest Single View dated 12/10/2020; Chest Single View dated 12/07/2020; Chest Single View dated 12/04/2020; Chest Single View dated 10/20/2020 FINDINGS: Portable technique limits examination quality. The lungs are grossly clear. The heart is normal in size. No displaced fractures. IMPRESSION: No acute intrathoracic process suspected. CT Head: COMPARISON: Head Brain Wo Cont dated 11/28/2020; Head Brain Wo Cont dated 11/21/2020 TECHNIQUE: All CT scans are performed using dose optimization technique as appropriate and may include automated exposure control or mA/KV adjustment according to patient size. FINDINGS: No intracranial hemorrhage, hydrocephalus or extra-axial fluid collection.Moderate generalized brain atrophy is present with moderate periventricular and deep white matter chronic microvascular ischemic changes.No areas of brain edema or evidence of midline shift. The paranasal sinuses and mastoids are clear. The calvarium is intact. IMPRESSION: No acute intracranial abnormality. ECHO 11/2020: MEASUREMENTS (cm) DIASTOLIC (NORMALS) SYSTOLIC (NORMALS) IVSd 0.9 (0.6-1.2) LA Diam 2.8 (1.9-4.0) LVEF 71% LVIDd 3.7 (3.5-5.7) LVIDs 2.2 (2.0-3.5) %FS 40% LVPWd 1.0 (0.6-1.2) Ao Diam 2.3 (2.0-3.7) 2 DIMENSIONAL ASSESSMENT: RIGHT ATRIUM: NORMAL LEFT ATRIUM: NORMAL RIGHT VENTRICLE: NORMAL LEFT VENTRICLE: NORMAL TRICUSPID VALVE: NORMAL MITRAL VALVE: NORMAL PULMONIC VALVE: NORMAL AORTIC VALVE: NORMAL PERICARDIAL EFFUSION: NONE AORTIC ROOT: NORMAL LEFT VENTRICULAR WALL MOTION: NORMAL DOPPLER/COLOR FLOW: NORMAL COMMENTS: NORMAL 2D ECHOCARDIOGRAM WITH DOPPLER. NO WALL MOTION ABNORMALITY. NO EFFUSION. CT 11/2020: COMPARISON: CT of the abdomen and pelvis March 10, 2020. FINDINGS: ARTIFACTS: The exam is suboptimal secondary to motion artifact. CHEST: LUNGS: Compressive atelectasis in the lung bases is noted. The lungs are otherwise clear. PLEURAL SPACE: Bilateral pleural effusions are present. No pneumothorax. HEART: A trace pericardial effusion is present. MEDIASTINUM: The esophagus is distended with air and fluid. ABDOMEN: LIVER: The liver is enlarged and diffusely fatty. GALLBLADDER AND BILE DUCTS: The gallbladder is distended with several layering calcified gallstones. There is no ductal dilatation. PANCREAS: Unremarkable. No ductal dilation. SPLEEN: Unremarkable. ADRENALS: Unremarkable. No mass. KIDNEYS AND URETERS: No obstructing stones. No hydronephrosis. No perinephric fluid. STOMACH AND BOWEL: Diffuse mucosal thickening of the colon is present. The stomach is distended with fluid and air. Suggestion of diffuse mucosal thickening of the small bowel is noted. There is no evidence of obstruction. PELVIS: APPENDIX: No findings to suggest acute appendicitis. BLADDER: The bladder is decompressed with a Valdez catheter in place. No stones. REPRODUCTIVE: Unremarkable as visualized. CHEST, ABDOMEN and PELVIS: INTRAPERITONEAL SPACE: A small amount of ascites is present throughout the abdomen and pelvis. No free air. BONES/JOINTS: Multilevel degenerative change of the spine is present. SOFT TISSUES: The soft tissues are normal. VASCULATURE: Unremarkable. No aortic aneurysm. LYMPH NODES: Unremarkable. No enlarged lymph nodes. IMPRESSION: 1. Diffuse small bowel and colonic mucosal thickening concerning for enterocolitis. Infectious, inflammatory, and ischemic etiologies are within the differential. A discrete mass is not seen. However, correlation patient's laboratory values and follow-up is recommended. 2. Small bilateral pleural effusions with trace pericardial effusion. 3. Small amount of ascites throughout the abdomen and pelvis. 4. Cholelithiasis without CT evidence to suggest cholecystitis. ABUS 11/2020: COMPARISON: Abdomen Exam Limited dated 05/29/2020 FINDINGS: The gallbladder demonstrates multiple shadowing gallstones. No pericholecystic fluid or gallbladder wall thickening. The common bile duct is normal measuring 4 mm. The liver demonstrates no findings of intrahepatic biliary dilatation. IMPRESSION: Cholelithiasis. Medical problem list: Acute encephalopathy with dehydration related to alcohol abuse and likely underlying dementia Hypomagnesia Hyponatremia Fatty liver without CT evidence of cirrhosis GERD Brief History of Present Illness: 71-year-old female presented with altered mental status. Most of the information came from the patient's . Patient is an alcoholic. She has been drinking about 6 to 10 glasses of alcohol per day. Patient with history of GERD, cirrhosis, and alcohol abuse. Patient was evaluated in the emergency room. Sodium found to be at 124. reports patient not taking good oral intake. She mainly drinks during the day and in the morning. CT head unremarkable. Due to her altered mental state patient was admitted for further evaluation and treatment. reports patient was seen in [place] for her alcohol abuse. She was to see GI cirrhosis specialist soon. Patient takes multiple medications including Xifaxan, lactulose, Lasix, Aldactone. Hospital Course: Patient presented with altered mental status. This was secondary to alcohol abuse. Patient was hyponatremic and hypokalemic. Patient was admitted for further evaluation and treatment. Patient drinks about 6 drinks per day. She drinks early in the morning and throughout the day. Patient last hospitalized in November 2020 for E. coliESBL. She was sent to [facility] at the time. Since that time she was placed on medication for possible cirrhosis. Prior CT scan and abdominal ultrasound showed no evidence of cirrhosis. Fatty liver noted. Patient was hydrated. Electrolytes improved. Patient appears to be at her baseline. At discharge it is recommended that she wean off alcohol entirely. This can be done over several weeks. She currently drinks about 6 drinks per day. Every week she is to decrease 1 drink less. This will be done with the help of her who is agreeable with the plan of care. At discharge no CT evidence of cirrhosis. Fatty liver is noted. Recommend to discontinue Xifaxan due to cost. Recommend to discontinue spironolactone due to her poor nutrition and poor oral intake. Patient may continue with lactulose twice daily but hold if with greater than 2-3 bowel movements per day. This can be further monitored and adjusted depending on her oral intake and output. Will decrease Lasix to 20 mg daily if needed especially if with increase in edema to the lower extremities. For now patient likely does not require lactulose or Lasix. Increase nutrition recommended. Will provide Ensure supplementation twice daily. At discharge will also provide folic acid 1 mg daily and thiamine 100 mg daily. Education on alcohol abuse, alcohol withdrawal, fatty liver provi ded. Patient will follow-up with GI specialist in the near future to consider further evaluation for possible cirrhosis. This would likely require liver biopsy. Recommend follow-up with PCP within 1 week. Physical therapy did evaluate the patient. Physical therapy recommends to continue home health and physical therapy at discharge. Fall precaution in place. Patient with GERD. At discharge patient will continue with Protonix 40 mg daily. Patient with likely underlying early dementia likely related to her alcohol abuse. Recommend neurology evaluation as an outpatient. Vital Signs/Physical Exam: Temp Pulse Resp BP Pulse Ox 97.6 F 112 H 16 140/76 100 03/16/21 10:38 03/16/21 10:38 03/16/21 10:38 03/16/21 10:38 03/16/21 10:38 General: Alert, In no apparent distress, Oriented x3, Cooperative HEENT: Atraumatic Neck: Supple Respiratory: Clear to auscultation bilaterally, Normal air movement Cardiovascular: Normal pulses, Regular rate/rhythm Gastrointestinal: Normal bowel sounds, No tenderness, No masses, No rebound, No guarding Musculoskeletal: No erythema, No tenderness, No warmth Integumentary: No tenderness/swelling, No erythema, No warmth, No cyanosis Neurological: Normal speech, Normal strength at 5/5 x4 extr, Normal tone, Normal affect Laboratory Data at Discharge: WBC 5.40 K/uL (4.3-10.9) 03/16/21 07:20 Hgb 12.5 g/dL (12.0-15.0) 03/16/21 07:20 Hct 35.6 % (36.0-45.0) L 03/16/21 07:20 Plt Count 80 K/uL (152-406) L D 03/16/21 07:20 PT 15.4 SECONDS (9.5-12.5) H 03/15/21 14:05 INR 1.34 03/15/21 14:05 APTT 27.8 SECONDS (24.3-36.9) 03/15/21 14:05 Sodium 130 mmol/L (136-145) L 03/16/21 07:20 Potassium 3.1 mmol/L (3.5-5.1) L 03/16/21 07:20 BUN 10 mg/dL (7-18) 03/16/21 07:20 Creatinine 0.68 mg/dL (0.55-1.3) 03/16/21 07:20 Glucose 110 mg/dL (74-106) H 03/16/21 07:20 Magnesium 1.7 mg/dL (1.8-2.4) L 03/15/21 14:05 Total Bilirubin 1.6 mg/dL (0.2-1.0) H 03/15/21 14:05 AST 81 U/L (15-37) H 03/15/21 14:05 ALT 19 U/L (12-78) 03/15/21 14:05 Alkaline Phosphatase 127 U/L (45-117) H 03/15/21 14:05 Amylase 41 U/L (25-115) 03/15/21 14:05 Lipase 196 U/L (73-393) 03/15/21 14:05 Home Medications: Constulose 15 ml PO BID #1 bottle 03/16/21 Ensure Enlive 237 ml PO BID #60 can 03/16/21 Folic Acid 1 mg PO DAILY #30 03/16/21 Furosemide [Lasix] 20 mg PO DAILY PRN #30 tab 03/16/21 Pantoprazole [Protonix Tab*] 40 mg PO DAILY #30 tab 03/16/21 Thiamine HCl 100 mg PO DAILY #30 tablet 03/16/21 New Medications: Constulose 15 ml PO BID #1 bottle Ensure Enlive 237 ml PO BID #60 can Folic Acid 1 mg PO DAILY #30 Furosemide [Lasix] 20 mg PO DAILY PRN #30 tab PRN Reason: Shortness Of Breath Pantoprazole [Protonix Tab*] 40 mg PO DAILY #30 tab Thiamine HCl 100 mg PO DAILY #30 tablet Physician Discharge Instructions: Patient presented with altered mental status. This was secondary to alcohol abuse. Patient was hyponatremic and hypokalemic. Patient was admitted for further evaluation and treatment. Patient drinks about 6 drinks per day. She drinks early in the morning and throughout the day. Patient last hospitalized in November 2020 for E. coliESBL. She was sent to skilled facility at the time. Since that time she was placed on medication for possible cirrhosis. Prior CT scan and abdominal ultrasound showed no evidence of cirrhosis. Fatty liver noted. Patient was hydrated. Electrolytes improved. Patient appears to be at her baseline. At discharge it is recommended that she wean off alcohol entirely. This can be done over several weeks. She currently drinks about 6 drinks per day. Every week she is to decrease 1 drink less. This will be done with the help of her who is agreeable with the plan of care. At discharge no CT evidence of cirrhosis. Fatty liver is noted. Recommend to discontinue Xifaxan due to cost. Recommend to discontinue spironolactone due to her poor nutrition and poor oral intake. Patient may continue with lactulose twice daily but hold if with greater than 2-3 bowel movements per day. This can be further monitored and adjusted depending on her oral intake and output. Will decrease Lasix to 20 mg daily if needed especially if with increase in edema to the lower extremities. For now patient likely does not require lactulose or Lasix. Increase nutrition recommended. Will provide Ensure supplementation twice daily. At discharge will also provide folic acid 1 mg daily and thiamine 100 mg daily. Education on alcohol abuse, alcohol withdrawal, fatty liver provided. Patient will follow-up with GI specialist in the near future to consider further evaluation for possible cirrhosis. This would likely require liver biopsy. Recommend follow-up with PCP within 1 week. Physical therapy did evaluate the patient. Physical therapy recommends to continue home health and physical therapy at discharge. Fall precaution in place. Patient with GERD. At discharge patient will continue with Protonix 40 mg daily. Patient with likely underlying early dementia likely related to her alcohol abuse. Recommend neurology evaluation as an outpatient. Diet: AHA Activity: Ad colin Followup: Fan Billy DO [Primary Care Provider] - Time spent managing pt's care (in minutes): 55
[2021-03-16 10:53] VITALS: O2SAT 98
[2021-03-16 12:12] VITALS: TEMP 97
[2021-03-16] MEDS ORDERED: FUROSEMIDE 20 MG/ 2ML VIAL IV ONE (13:05)
[2021-03-16 13:14] VITALS: BP 142/90
--- NOTE | 2021-03-16 15:19 | RAD REPORT ---
EXAM DESCRIPTION: [place] Single View03/16/2021 2:51 pm CLINICAL HISTORY: Chest pain COMPARISON: 2019 and March 15, 2021 FINDINGS: Mild elevation left hemidiaphragm unchanged Small calcified granuloma within the lungs. Otherwise lungs appear clear. Heart is normal size
== END 2021-03-16 16:55 | disposition home health service (06) ==
LOC: ER 13:48 → ERHOLD 17:33
PROVIDERS: ADMIT Family Medicine; ATTEND Family Medicine
DX: G93.40 Encephalopathy, unspecified (principal); E86.0 Dehydration; F10.10 Alcohol abuse, uncomplicated; E83.42 Hypomagnesemia; E87.1 Hypo-osmolality and hyponatremia; E87.6 Hypokalemia; K76.0 Fatty (change of) liver, not elsewhere classified; K21.9 Gastro-esophageal reflux disease without esophagitis; E46 Unspecified protein-calorie malnutrition; Z68.21 Body mass index [BMI] 21.0-21.9, adult; Z20.822 Contact with and (suspected) exposure to COVID-19; Z87.891 Personal history of nicotine dependence; Z87.440 Personal history of urinary (tract) infections; Z88.6 Allergy status to analgesic agent; Z80.9 Family history of malignant neoplasm, unspecified; Z83.6 Family history of other diseases of the respiratory system
CPT/HCPCS: 96365; 96368; 93005; 87040 ×2; 85025 ×2; 80048 ×2; 36415; 80320; 82140; 82150; 83735; 82550; 84132; 85610; 80076; 83605 ×3; 85730; 84484; 82553; 83690; 84145; 83880; 70450; 71045 ×2; 97116; 97161; 96375; 99285; U0003; J1940; J3411; J3475; J0696; J7030 ×3; G0378 ×3; J3101

== ENCOUNTER 2021-05-29 13:24 | Inpatient (IN) | payer OTHER, MEDICARE ==
--- OUTSIDE RECORDS SUMMARY | 2021-05-29 13:29 | XMS REPORT | Continuity of Care Document ---
:1950 Author Organization [facility] t Address [address] [place] [address] Care Team Providers Name Role Phone FER ESPARZA Attending Clinician Unavailable GAGANDEEP ALANIS Attending Clinician Unavailable Ruth Attending Clinician Unavailable Fer Esparza MD Attending Clinician [phone] Paola Ramírez MD Attending Clinician [phone] FER ESPARZA Admitting Clinician Unavailable PAOLA RAMÍREZ Admitting Clinician Unavailable Payers Payer Name Policy Type Policy Number Effective Date Expiration Date [facility] B [id number] 2015 00:00:00 [facility] [id number] 2020 HEALTHCARE 00:00:00 Problems Condition Condition Condition Status Onset Resolution [...] ents Source Name Type Date Date Clinician HYDROCOD Allergy Active [facility]: Medical N 00 [place] Hydrocod Drug Active [facility] Allergy 03-10 [facility] - aminophe 00:00: Medical n 00 [place] Imitrex Adverse Active Info Not [facility] Reaction Available [facility] ent [facility] Adverse Active Info Not [facility] Reaction Available [facility] Social History Social Habit Start Date Stop Date Quantity Comments Source Sex Assigned At [facility] Medications Ordered Filled Start Stop Current Ordering Indication Dosage Frequency Signature Comments Components Source Medication Medication Date Date Medication? Clinician (SIG) Name Name Cefdinir Cefdinir Carin as [facility] St 8-03-04 Maddison directed [facility] - 00:00: 00:00 Memoria 00 :00 [facility] Vital Signs Vital Name Observation Time Observation Value Comments Source WEIGHT 2020-03-10 00:00:00 59.9 kg WEIGHT 2020-03-10 00:00:00 59.9 kg Systolic blood 2020-03-14 12:22:00 138 mm[Hg] [facility] Diastolic blood 2020-03-14 12:22:00 63 mm[Hg] [facility] Heart rate 2020-03-14 12:22:00 77 /min [facility] Body temperature 2020-03-14 12:22:00 36.17 Stella [facility] Respiratory rate 2020-03-14 12:22:00 18 /min [facility] Oxygen saturation in 2020-03-14 12:22:00 99 /min [facility] Arterial blood by Medical Ce nter Pulse oximetry Procedures Procedure Date / Time Performed Performing Clinician Dewayne rhodes POCT-GLUCOSE METER 2020-03-14 12:24:00 Sarai Ramírez [facility] POCT-GLUCOSE METER 2020-03-14 05:37:00 Sarai Ramírez [facility] CBC W/PLT COUNT & AUTO 2020-03-14 05:26:00 [facility] COMPREHENSIVE METABOLIC 2020-03-14 05:26:[address] [facility] PANEL [facility] MAGNESIUM 2020-03-14 05:26:[address] [facility] PHOSPHORUS 2020-03-14 05:26:00 Madi Mcleod [facility] Plan of Care Planned Activity Planned Date Details Comments Source Future Scheduled 2021-03-[address] [facility] - Test 00:00:00 (#1) [code = [facility] Center INFLUENZA VACCINE (#1)] Future Scheduled 2020-07-[address] [facility] - Test 00:00:00 (12+) [code = [facility] DEPRESSION SCREENING (12+)] Future Scheduled 2020-07-14 [...] [facility] Center breast (procedure) [code = 434366779] Future Scheduled [address] [facility] - Test 00:00:00 malignant neoplasm of Medica l Center colon (procedure) [code = 565081230] Encounters Start End Encounter Admission Attending Care Care Encounter Source Date/Time Date/Time Type Type Clinicians Facility Department ID 2020-03-10 Inpatient ER CY [facility] [id number] [facility] 13:36:00 ERIK DELAROSA 2021-04-17 2021-04-17 [facility] [id number] [facility] 2021-03-16 2021-03-16 [facility] [id number] [facility] 2021-03-01 2021-03-01 Outpatient RAFAEL ALANIS [facility] [id number] SLE 00:00:00 00:00:00 [facility] 2021-03-01 2021-03-01 [id number] [facility] 00[facility]00:00 [facility] 2021-02-05 2021-02-05 [facility] [id number] [facility] 2021-01-25 2021-01-25 Outpatient RAFAEL ALANIS [facility] [id number] SLE 00:00:00 00:00:00 [facility] 2021-01-24 2021[facility]01-24 [facility] [id number] [facility] 00[facility]00:00 [facility] 2021-01-19 2021-01-19 [facility] [id number] [facility] 2021-01-05 2021-01-05 [facility] [id number] 00:[facility]00 00:00:00 [facility] 2020-11-30 2020-11-30 Outpatient RAFAEL ALANIS [facility] [id number] SLE 00:00:00 00:00:00 [facility] 2020-11-29 2020-11-29 [facility] [id number] 00:[facility] 00:00[facility]00 [facility] 2020-11-21 2020-11-21 Outpatient [facility] [id number] [facility] 2020-11-16 2020-11-16 Outpatient ALDO RIVERA [facility] [id number] SLE 00:00:00 00:00:00 [facility] 2020-11-14 2020-11-14 [facility] [id number] 00:00[facility]00 00:00:00 [facility] 2020-11-09 2020-11-09 Outpatient RAFAEL ALANIS [facility] [id number] SLE 00:00:00 00:00:00 [facility] 2020-11-02 2020-11-02 [facility] [id number] 00:[facility]00 00[facility]00:00 [facility] 2020-11-01 2020-11-01 [facility] [id number] [facility] 2020-10-31 2020-10-31 [facility] [id number] 00:00[facility]00 00:00:00 [facility] 2020-10-30 2020-10-30 [facility] [id number] [facility] 2020-10-25 2020-10-25 [facility] [id number] [facility] 2020-09-21 2020-09-21 [facility] [id number] [facility] 2020-09-19 2020-09-19 Outpatient [facility] [id number] [facility] 2020-06-21 2020-06-21 Outpatient [facility] [id number] [facility] 2020-06-06 2020-06-06 Outpatient [facility] [id number] [facility] 2020-06-06 2020-06-06 [facility] [id number] [facility] 2020-03-10 2020-03-14 [facility] Erik Esparza [facility] [id number] [facility] 13:36:00 15:23:00 Encounter Sarai Ramírez [facility] 2020-02-28 2020-02-28 [facility] [id number] 09:52:00 09:52:00 t Specialty/U Yareli kes - Specialty rology [facility] /Urology Clinic l Clinic Outpati ent Clinics 2020-02-25 2020-02-25 [facility] [id number] 11:00:00 11:00:00 t Specialty/U Yareli kes - Specialty rology [facility] /Urology Clinic l Clinic Outpati ent Clinics 2019-12-29 2019-12-29 [facility] [id number] 10:02:00 10:02:00 t Specialty/U Yareli kes - Specialty rology [facility] /Urology Clinic l Clinic Outpati ent Clinics 2019-12-29 2019-12-29 [facility] [id number] 10:02:00 10:02:00 t Specialty/U Yareli kes - Specialty rology [facility] /Urology Clinic l Clinic Outpati ent Clinics 2019-12-13 2019-12-13 [facility] [id number] 11:00:00 11:00:00 t Specialty/U Yareli kes - Specialty rology [facility] /Urology Clinic l Clinic Outpati ent Clinics 2019-12-13 2019-12-13 [facility] [id number] 08:52:00 08:52:00 t Specialty/U Yareli kes - Specialty rology [facility] /Urology Clinic l Clinic Outpati ent Clinics 2019-10-14 2019-10-14 [facility] [id number] 11:03:00 11:03:00 t Specialty/U Yareli kes - Specialty rology [facility] /Urology Clinic l Clinic Outpati ent Clinics 2019-10-12 2019-10-12 [facility] [id number] 13:32:00 13:32:00 t Specialty/U Yareli kes - Specialty rology [facility] a /Urology Clinic l Clinic Outpati ent Clinics 2019-08-30 2019-08-30 [facility] [id number] 11:46:00 11:46:[address] [facility] Medicine l Medicine Outpati ent Clinics 2019-08-22 2019-08-22 [facility] [id number] 12:35:00 12:35:00 t [facility] Medicine Outpati ent Clinics 2019-08-18 2019-08-18 [facility] [id number] 10:45:00 10:45:00 t [facility] Medicine Outpati ent Clinics 2019-06-21 2019-06-21 [facility] [id number] 10:00:00 10:00:00 t Specialty/U Yareli kes - [facility] Clinics 2019-06-01 2019-06-01 [facility] [id number] 10:00:00 10:00:[address] [facility] Medicine l Medicine Outpati ent Clinics 2019-05-18 2019-05-18 [facility] [id number] 10[facility]40:00 10:40:[address] [facility] l Medicine Outpati ent Clinics 2019-04-19 2019-04-19 [facility] [id number] 23:36:00 23:36:00 t [facility] Medicine Outpati ent Clinics 2019-04-03 2019-04-03 [facility] [id number] 04:57:00 04:57:00 t [facility] Medicine Outpati ent Clinics 2019-03-17 2019-03-17 [facility] [id number] 21:43:00 21:43:00 t [facility] Medicine Outpati ent Clinics 2019-03-17 2019-03-17 [facility] [id number] 10:40:00 10:40:[address] [facility] l Medicine Outpati ent Clinics 2019-03-08 2019-03-08 [facility] [id number] 15:04:00 15:04:00 t [facility] Medicine Outpati ent Clinics 2019-03-01 2019-03-01 [facility] [id number] 20:32:00 20:32:00 t [facility] Medicine Outpati ent Clinics 2019-02-26 2019-02-26 [facility] [id number] 16:08:00 16:08:00 t [facility] Medicine Outpati ent Clinics 2019-02-22 2019-02-22 [facility] [id number] 08:19:00 08:19:00 t [facility] Medicine Outpati ent Clinics 2019-02-15 2019-02-15 [facility] [id number] 09:20:00 09:20:00 t [facility] Medicine Outpati ent Clinics 2019-01-18 2019-01-18 [facility] [id number] 10:00:00 10:00:00 t Specialty/U Yareli kes - Specialty rology [facility] a /Urology Clinic l Clinic Outpati ent Clinics 2018-09-02 2018-09-02 [facility] [id number] 10:45:00 10:45:00 t [facility] Medicine Outpati ent Clinics 2018-07-21 2018-07-21 [facility] [id number] 09:30:00 09:30:00 t Specialty/U Yareli kes - Specialty rology Mem[facility] a /Urology Clinic l Clinic Outpati ent Clinics 2018-03-11 2018-03-11 [facility] [id number] 09:30:00 09:30:00 t Specialty/U Yareli kes - Specialty rology [facility] a /Urology Clinic l Clinic Outpati ent Clinics 2018-02-19 2018-02-19 [facility] [id number] 09:00:00 09:00:00 t Specialty/U Yareli kes - Specialty rology [facility] /Urology Clinic l Clinic Outpati ent Clinics 2018-01-16 2018-01-16 [facility] [id number] 15:30:00 15:30:00 t Specialty/U Yareli kes - Specialty rology [facility] a /Urology Clinic l Clinic Outpati ent Clinics 2017-12-25 2017-12-25 [facility] [id number] 10:38:00 10:38:00 t Specialty/U Yareli kes - Specialty rology [facility] a /Urology Clinic l Clinic Outpati ent Clinics 2017-12-24 2017-12-24 [facility] [id number] 09:52:00 09:52:00 t Specialty/U Yareli kes - Specialty rology [facility] a /Urology Clinic l Clinic Outpati ent Clinics 2017-12-11 2017-12-11 Out[facility] [id number] 09:30:00 09:30:00 t Specialty/U Yareli kes - Specialty rology [facility] /Urology Clinic l Clinic Outpati ent Clinics 2017-12-09 2017-12-09 [facility] [id number] 09:35:00 09:35:00 t Specialty/U Yareli kes - Specialty rology [facility] a /Urology Clinic l Clinic Outpati ent Clinics 2017-11-20 2017-11-20 Out[facility] [id number] 09:00:00 09:00:00 t Specialty/U Yareli kes - Specialty rology [facility] a /Urology Clinic l Clinic Outpati ent Clinics 2017-11-06 2017-11-06 [facility] [id number] 10:05:00 10:05:00 t Specialty/U Yareli kes - Specialty rology Memori a /Urology Clinic l Clinic Outpati ent Clinics 2017-11-06 2017-11-06 [facility] [id number] 09:12:00 09:12:00 t Specialty/U Yareli kes - Specialty rology Mem[facility] a /Urology Clinic l Clinic Outpati ent Clinics 2017-11-04 2017-11-04 [facility] [id number] 09:45:00 09:45:00 t Specialty/U Yareli kes - Specialty rology Mem[facility] a /Urology Clinic l Clinic Outpati ent Clinics 2017-10-20 2017-10-20 [facility] [id number] 08:45:00 08:45:00 t [facility] Results Test Description Test Time Test Comments Results Result Comments Source BLOOD CULTURE 2020-03-15 17:00:00 Test Item Value Reference Range Interpretation Comme nts CULTURE (BEAKER) (test code = 1095) No growth in 5 days BLOOD [id number] 15:00:00 Test Item Value Reference Range Interpretation Comments CULTURE (BEAKER) (test No growth in 5 days code = 1095) POC-Glucose [id number] 12:35:00 Test Item Value Reference Range Interpretation Comments POC-Glucose Meter (test 103 mg/dL 70-110 : TE STED AT [facility] code = 1538) [address] [facility], 770 30: [address] Court Magistrate/Techni benjamin ID = [id number] for EMILY SOLITARIO Lab Interpretation (test Normal code = 49495-5) [facility] [id number] 12:35:00 Test Item Value Reference Range Interpretation Comments POC-GLUCOSE METER 103 mg/dL 70-110 : TESTED A T [facility] 6720 (BEAKER) (test code = SHABBIR Jiménez [facility], 1538) [address]: Industrial Court Magistrate/Techni benjamin ID = [id number] for EMILY EATON CBC with platelet count + automated [id number] 06:54:00 Test Item Value Reference Range Interpretation Comments WBC (test code = 6690-2) 3.5 See_Comment [A utomated message] The system Nevro generated this result transmitted ref erence range: 3.5 - 10 .5 K/L. The refe rence range was not u sed to interpret this result as normal/abnor mal. RBC (test code = 789-8) 2.79 See_Comment L [Au tomated message] The system Nevro generated this result transmitted ref erence range: 3.93 - 5 .22 M/L. The refe rence range was not u sed to interpret this result as normal/abnor mal. MCHC (test code = 786-4) 36.0 See_Comment H [A utomated message] The system Nevro generated this result transmitted ref erence range: [...] L [Aut omated message] 777-3) The system Nevro generated this result transmitted ref erence range: 150 - 45 0 K/CU MM. The referen ce range was not u sed to interpret this result as normal/abnor mal. MPV (test code = 10.5 fL 9.4-12.3 36114-7) nRBC (test code = 413) 0 See_Comment [Aut omated message] The system Nevro generated this result transmitted ref erence range: [...] See_Comment [Aut omated message] 670) The system Nevro generated this result transmitted ref erence range: 1.56 - 6 .13 K/L. The refe rence range was not u sed to interpret this result as normal/abnor mal. # Lymphs (test code = 0.43 See_Comment L [Auto mated message] 414) The system Nevro generated this result transmitted ref erence range: 1.18 - 3 .74 K/L. The refe rence range was not u sed to interpret this result as normal/abnor mal. # Monos (test code = 0.98 See_Comment H [Autom ated message] 415) The system Nevro generated this result transmitted ref erence range: 0.24 - 0 .36 K/L. The refe rence range was not u sed to interpret this result as normal/abnor mal. # Eos (test code = 416) 0.07 See_Comment [Au tomated message] The system Nevro generated this result transmitted ref erence range: 0.04 - 0 .36 K/L. The refe rence range was not u sed to interpret this result as normal/abnor mal. # Baso (test code = 417) 0.01 See_Comment [A utomated message] The system Nevro generated this result transmitted ref erence range: 0.01 - 0 .08 K/L. The refe rence range was not u sed to interpret this result as normal/abnor mal. Immature 1 % 0-1 Granulocytes-Relative (test code = 2801) Lab Interpretation (test Abnormal code = 65636-5) [facility] W/PLT COUNT & AUTO [id number] 06:54:00 Test Item Value Reference Range Interpretation [...] (BEAKER) (test code = 2801) Comprehensive metabolic [id number] 06:45:00 Test Item Value Reference Range Interpretation Comments Protein, Total (test 5.1 See_Comment L [Autom ated code = 2885-2) message] The system which generated this result transmit enrique reference range : 6.0 - 8.3 gm/dL . The reference range was not u sed to interpret th is result as normal/abnormal . Albumin (test code = 3.0 g/dL 3.5-5 L 39416-8) Alkaline Phosphatase 128 U/L 40-150 (test code [...] (test code = 7.6 mg/dL 8.4-10.2 L 95512-5) AST (test code = 75 U/L 5-34 H 1920-8) ALT (test code = 64 U/L 6-55 H 1742-6) EGFR (test code = 109 mL/min/1.[address] [facility] [place] [address]-4) NOT ACCURATE CREATININE CLEARANCE IN PREDICTING GLOMERULAR FILTRATION RATE . ESTIMATED GFR I S NOT APPLICABLE FOR DIALYSIS PATIEN TS. MICHAEL (test code = MICHAEL) Industrial Court Magistrate ID - EDASI Lab Interpretation Abnormal (test code = 80040-2) [facility] [id number] 06:45:00 Test Item Value Reference Range Interpretation [...] S NOT APPLICABLE FOR DIALYSIS PATIEN TS. Industrial [facility] Magistrate ID - [id number] 06:34:00 Test Item Value Reference Range Interpretation Comments Magnesium (test code = 1.6 mg/dL 1.6-2.6 29806-3) MICHAEL (test code = MICHAEL) Industrial Court Magistrate ID - EDASI Lab Interpretation (test Normal code = 34937-7) [facility] 06:34:00 Test Item Value Reference Range Interpretation Comments Phosphorus (test code = 2.3 mg/dL 2.3-4.7 2777-1) MICHAEL (test code = MICHAEL) Industrial Court Magistrate ID - EDASI Lab Interpretation (test Normal code = 70185-1) [facility] 06:34:00 Test Item Value Reference Range Interpretation Comments PHOSPHORUS (BEAKER) (test code = 2.3 mg/dL 2.3-4.7 604) Industrial [facility] Magistrate ID - [id number] 06:34:00 Test Item Value Reference Range Interpretation Comments MAGNESIUM (BEAKER) (test code = 1.6 mg/dL 1.6-2.6 627) Industrial Court Magistrate ID - EDASIPOCT-GLUCOSE [id number] 05:48:00 Test Item Value Reference Range Interpretation Comments POC-GLUCOSE METER 86 mg/dL 70-110 : TESTED A T [facility] 6720 (BEAKER) (test code = [facility], 1538) [address]: Industrial Court Magistrate/Techni benjamin ID = [id number] for SAND ERS, KRAIG POCT-GLUCOSE [id number] 23:58:00 Test Item Value Reference Range Interpretation Comments POC-GLUCOSE METER 94 mg/dL 70-110 : TESTED A T [facility] 6720 (BEAKER) (test code = [facility], 1538) [address]: Industrial Court Magistrate/Techni benjaimn ID = [id number] for SAND ERS, KRAIG POCT-GLUCOSE [id number] 14:18:00 Test Item Value Reference Range Interpretation Comments POC-GLUCOSE METER 93 mg/dL 70-110 : TESTED A T [facility] 6720 (BEAKER) (test code = [facility], 1538) [address]761: Industrial Court Magistrate/Techni benjamin ID = [id number] for Sylvia Owens POCT-GLUCOSE [id number] 12:42:00 Test Item Value Reference Range Interpretation Comments POC-GLUCOSE METER 96 mg/dL 70-110 : TESTED A T [facility] 6720 (BEAKER) (test code = [facility], 1538) [address]603: Industrial Court Magistrate/Techni benjamin ID = [id number] for Paco Alcantara [id number] 08:22:00 Test Item Value Reference Range Interpretation Comments PHOSPHORUS (BEAKER) (test code = 1.3 mg/dL 2.3-4.7 LL 604) Industrial Court Magistrate ID - PIAYA LCOMPREHENSIVE METABOLIC [id number] 08:21:00 Test Item Value Reference Range Interpretation [...] S NOT APPLICABLE FOR DIALYSIS PATIEN TS. Industrial [facility] Magistrate ID - RYAN [id number] 08:16:00 Test Item Value Reference Range Interpretation Comments MAGNESIUM (BEAKER) (test code = 1.3 mg/dL 1.6-2.6 L 627) Industrial Court Magistrate ID - RYAN LCBC W/PLT COUNT & AUTO [id number] 07:59:00 Test Item Value Reference Range Interpretation [...] PERCENT (BEAKER) (test code = 2801) POCT-GLUCOSE [id number] 07:35:00 Test Item Value Reference Range Interpretation Comments POC-GLUCOSE METER 98 mg/dL 70-110 : TESTED A T [facility] 6720 (BEAKER) (test code = [facility] LEM[facility], 1538) 35737: Industrial Court Magistrate/Techni benjamin ID = [id number] for Edson Gerardo POCT-GLUCOSE [id number] 07:03:00 Test Item Value Reference Range Interpretation Comments POC-GLUCOSE METER 103 mg/dL 70-110 : TESTED A T [facility] 6720 (BEAKER) (test code = [facility], 1538) 66658: Industrial Court Magistrate/Techni benjamin ID = [id number] for Jaimee Mccoy POCT-GLUCOSE [id number] 16:13:00 Test Item Value Reference Range Interpretation Comments POC-GLUCOSE METER 110 mg/dL 70-110 : TESTED A T [facility] 6720 (BEAKER) (test code = [facility], 1538) [address]77: Industrial Court Magistrate/Techni benjamin ID = [id number] for Katharina Ramireza POCT-GLUCOSE [id number] 13:14:00 Test Item Value Reference Range Interpretation Comments POC-GLUCOSE METER 127 mg/dL 70-110 H : TESTED A T [facility] 6720 (BEAKER) (test code = [facility], 1538) [address]55[address]: Industrial Court Magistrate/Techni benjamin ID = [id number] for Yesika mckenzie, [place] [id number] 12:48:00 Test Item Value Reference Range Interpretation Comments POTASSIUM (BEAKER) 3.1 meq/L 3.5-5.1 L Specimen slightly (test code = 379) hemolyzed Industrial Court Magistrate ID - JOHN CPOCT-GLUCOSE [id number] 08:55:00 Test Item Value Reference Range Interpretation Comments POC-GLUCOSE METER 148 mg/dL 70-110 H : TESTED A T [facility] 6720 (BEAKER) (test code = [facility], 1538) [address]: Industrial Court Magistrate/Techni benjamin ID = [id number] for Yesika barinez, [place] COMPREHENSIVE METABOLIC [id number] 04:19:00 Test Item Value Reference Range Interpretation [...] S NOT APPLICABLE FOR DIALYSIS PATIEN TS. Industrial Court Magistrate ID Reymundo DAVIS LSpecimen slightly [id number] 04:19:00 Test Item Value Reference Range Interpretation Comments PHOSPHORUS (BEAKER) (test code = 1.5 mg/dL 2.3-4.7 LL 604) [address] [facility] Magistrate ID - RYAN [id number] 04:16:00 Test Item Value Reference Range Interpretation Comments MAGNESIUM (BEAKER) (test code = 1.7 mg/dL 1.6-2.6 627) Industrial [facility] Magistrate ID Reymundo DAVIS LCBC W/PLT COUNT & AUTO [id number] 03:32:00 Test Item Value Reference Range Interpretation [...] PERCENT (BEAKER) (test code = 2801) POCT-GLUCOSE [id number] 19:52:00 Test Item Value Reference Range Interpretation Comments POC-GLUCOSE METER 122 mg/dL 70-110 H : TESTED Joselito Armstrong [facility] 6720 (BEAKER) (test code = SHABBIR CHAN [place], 1538) [address]0009: Industrial Court Magistrate/Techni benjamin ID = [id number] for Jaimee Mccoy POCT-GLUCOSE [id number] 18:10:00 Test Item Value Reference Range Interpretation Comments POC-GLUCOSE METER 115 mg/dL 70-110 H : TESTED A T [facility] 6720 (AILYN) (test code = SHABBIR CHAN AK, 1538) [address]: Industrial Court Magistrate/Techni benjamin ID = [id number] for BONI HZD SARS-COV2/RT-PCR ([facility])2020-03-11 14:46:00 Test Item Value Reference Range Interpretation Comments SARS-COV2/RT-PCR (test Negative Not Detected, Negative, code = 0931116) See external report for linked test SARS-COV-2 PERFORMING LAB [facility] GONZALO (test code = 5997380) Negative result for this test determines that [...] 564(g) of the Act.Fact Sheet for Healthcare Providers:https://www.FoodShootr.Grouply/sites/default/files/product/documents/Fact_Shee s_VT_Wujrdgiec_Nkem_NWKE-NjX-2.pdfFact Sheet for Healthcare Patients:https://www.[employer].Grouply/sites/default/files/product/ documents/Ocns_Jqiqt_Ecgtxlzc_Pdnl_YTXH-PrL-5.pdfPerforming Laboratory:[facility], [place] [address]IKDF-[id number] METER 2020-03-11 12:29:00 Test Item Value Reference Range Interpretation Comments POC-GLUCOSE METER 117 mg/dL 70-110 H : TESTED A T [facility] 6720 (BEAKER) (test code = SHABBIR Jiménez [facility], 1538) [address]643: Industrial Court Magistrate/Techni benjamin ID = [id number] for RA MOS, BONI [id number] 06:39:00 Test Item Value Reference Range Interpretation Comments MAGNESIUM (BEAKER) 1.8 mg/dL 1.6-2.6 Specimen slightly (test code = 627) hemolyzed Industrial Court Magistrate ID - PIAYA [id number] 06:39:00 Test Item Value Reference Range Interpretation Comments PHOSPHORUS (BEAKER) 2.1 mg/dL 2.3-4.7 L Specimen slightly (test code = 604) hemolyzed Industrial Court Magistrate ID - PIAYA LCOMPREHENSIVE METABOLIC [id number] 06:39:00 Test Item Value Reference Range Interpretation [...] S NOT APPLICABLE FOR DIALYSIS PATIEN TS. Industrial [facility] Magistrate ID - PIAYA LSpecimen slightly ictericCBC W/PLT COUNT & AUTO [id number] 05:56:00 Test Item Value Reference Range Interpretation [...] PERCENT (BEAKER) (test code = 2801) POCT-GLUCOSE [id number] 05:51:00 Test Item Value Reference Range Interpretation Comments POC-GLUCOSE METER 114 mg/dL 70-110 H : TESTED A T [facility] 6720 (BEAKER) (test code = [facility], 1538) [address]: Industrial Court Magistrate/Techni benjamin ID = [id number] for TRAVON REYES RAPID DRUG SCREEN, [id number] 04:12:00 Test Item Value Reference Range Interpretation [...] situations. Chain of custody not maintained. Some ofli-msm-ybmevow medications, as well as adulterants, may cause inaccurate results. Clinical correlation should be applied. A more comprehensivedrug screen or confirmation of a detected drug may be performed upon request.Industrial Court Magistrate ID - WIN MURINALYSIS W/ REFLEX URINE [id number] 04:06:00 Test Item Value Reference Range Interpretation [...] = 1584) SOURCE(BEAKER) (test code = 2795) Industrial Court Magistrate ID - [auto]Industrial Court Magistrate ID - techOSMOLALITY, [id number] 04:02:00 Test Item Value Reference Range Interpretation Comments OSMOLALITY URINE (BEAKER) (test 630 mOsm/kg 50-1,200 mOsm/kg code = 614) CREATININE, RANDOM [id number] 03:18:00 Test Item Value Reference Range Interpretation Comments CREATININE URINE (BEAKER) (test 47.2 mg/dL code = 375) Reference Range: No NormalsOperator ID - WIN MSODIUM, RANDOM [id number] 03:18:00 Test Item Value Reference Range Interpretation Comments SODIUM URINE (BEAKER) (test code = 91 meq/L 243) Reference Range: No NormalsOperator ID - WIN MUREA NITROGEN, RANDOM URINE 2020-03-11 03:18:00 Test Item Value Reference Range Interpretation Comments UREA NITROGEN URINE (BEAKER) (test 798 mg/dL code = 538) Reference Range: No NormalsOperator ID - WIN MPOCT-GLUCOSE [id number] 01:01:00 Test Item Value Reference Range Interpretation Comments POC-GLUCOSE METER 114 mg/dL 70-110 H : TESTED A T [facility] 6720 (BEAKER) (test code = [facility], 1538) [address]: Industrial Court Magistrate/Techni benjamin ID = [id number] for TRAVON REYES LACTIC ACID, [id number] 21:31:00 Test Item Value Reference Range Interpretation Comments LACTATE BLOOD VENOUS 1.31 mmol/L 0.50-2.20 Specime n slightly (2) (BEAKER) (test hemolyzed code = 2872) Industrial Court Magistrate ID - DBSpecimen slightly ictericPOCT-GLUCOSE [id number] 18:10:00 Test Item Value Reference Range Interpretation Comments POC-GLUCOSE METER 114 mg/dL 70-110 H : TESTED A T [facility] 6720 (BEAKER) (test code = [facility], 153) [address]79: Industrial Court Magistrate/Techni benjamin ID = [id number] for SANTOS JACOBSON DD T4, [id number] 17:23:00 Test Item Value Reference Range Interpretation Comments FREE T4 (BEAKER) (test code = 655) 1.00 ng/dL 0.70-1.[address] Magistrate ID - DBHEPATITIS PANEL, [id number] 17:23:00 Test Item Value Reference Range Interpretation Comments HEPATITIS A IGM ANTIBODY (BEAKER) Nonreactive Nonreactive (test code = 498) HEPATITIS B CORE IGM ANTIBODY Nonreactive Nonreactive (BEAKER) (test code = 645) HEPATITIS C ANTIBODY (BEAKER) Nonreactive Nonreactive (test code = 367) HEPATITIS B SURFACE ANTIGEN (2) Nonreactive Nonreactive (BEAKER) (test code = 2585) Industrial Court Magistrate ID - DBTSH/FREE T4 IF [id number] 15:51:00 Test Item Value Reference Range Interpretation Comments THYROID STIMULATING HORMONE 0.299 uIU/mL 0.350-4.940 L (BEAKER) (test code = 772) Industrial Court Magistrate ID - ALIDA [id number] 15:33:00 Test Item Value Reference Range Interpretation Comments CORTISOL, TOTAL (BEAKER) (test 58.2 ug/dL 3.7-19.4 H code = 2755) Industrial Court Magistrate ID - JOHN [id number] 15:07:00 Test Item Value Reference Range Interpretation Comments PROCALCITONIN (BEAKER) (test code 1.40 ng/mL <0.05 H = 3036) SEPSIS RISK (ng/mL)Low: 0.05-0.50Intermediate: 0.51-2.00High: >=2.01B-TYPE NATRIURETIC FACTOR (BNP)2020-03-10 14:52:00 Test Item Value Reference Range Interpretation Comments B-TYPE NATRIURETIC PEPTIDE (BEAKER) 154 pg/mL 0-100 H (test code = 700) Industrial Court Magistrate ID - JOHN CTROPONIN [id number] 14:52:00 Test Item Value Reference Range Interpretation [...] failure, acidosis, acute neurological disease, and persistent tachyarrhythmia.Industrial Court Magistrate ID - JOHN COSMOLALITY, SERUM 2020-03-10 14:47:00 Test Item Value Reference Range Interpretation Comments OSMOLALITY, SERUM (BEAKER) (test 287 mOsm/kg 275-295 code = 615) [id number] 14:46:00 Test Item Value Reference Range Interpretation Comments MAGNESIUM (BEAKER) (test code = 1.3 mg/dL 1.6-2.6 L 627) Industrial Court Magistrate ID - JOHN [id number] 14:46:00 Test Item Value Reference Range Interpretation Comments PHOSPHORUS (BEAKER) (test code = 1.8 mg/dL 2.3-4.7 L 604) Industrial Court Magistrate ID - JOHN [id number] 14:46:00 Test Item Value Reference Range Interpretation Comments TRIGLYCERIDES (BEAKER) (test code = 220 mg/dL 540) TRIGLYCERIDE REFERENCE RANGELow Risk <150Borderline Risk 150-199High Risk 200-499Very High Risk>=500Operator ID - JOHN CSpecimen slightly icteric COMPREHENSIVE METABOLIC [id number] 14:46:00 Test Item Value Reference Range Interpretation [...] S NOT APPLICABLE FOR DIALYSIS PATIEN TS. Industrial [facility] Magistrate ID - JUL CSpecimen slightly [id number] 14:46:00 Test Item Value Reference Range Interpretation Comments AMYLASE (BEAKER) (test code = 349) 397 U/L 25-[address] Magistrate ID - JOHN CSpecimen slightly [id number] 14:46:00 Test Item Value Reference Range Interpretation Comments LIPASE (BEAKER) (test code = 749) 689 U/L 8-[address] Magistrate ID - JOHN CSpecimen slightly [id number] 14:41:00 Test Item Value Reference Range Interpretation Comments FIBRINOGEN LEVEL (BEAKER) (test 115 mg/dl 225-434 L code = 658) [id number] 14:38:00 Test Item Value Reference Range Interpretation Comments AMMONIA (BEAKER) 40 mol/L 18-72 Specimen sl ightly (test code = 348) hemolyzed Industrial Court Magistrate ID - JUL CLACTIC ACID, [id number] 14:37:00 Test Item Value Reference Range Interpretation Comments LACTATE BLOOD VENOUS (2) (BEAKER) 2.61 mmol/L 0.50-2.20 H (test code = 2872) Industrial Court Magistrate ID - JOHN CSpecimen slightly ictericPT/[id number] 14:36:00 Test Item Value Reference Range Interpretation [...] mechanical heart valves.CBC W/PLT COUNT & AUTO [id number] 14:33:00 Test Item Value Reference Range Interpretation [...] PERCENT (BEAKER) (test code = 2801) CALCIUM, [id number] 14:30:00 Test Item Value Reference Range Interpretation Comments CALCIUM IONIZED (BEAKER) (test 1.05 mmol/L 1.12-1.27 L code = 698) PH, BLOOD (BEAKER) (test code = 7.33 1810) BLOOD GAS, [id number] 14:30:00 Test Item Value Reference Range Interpretation [...]
[2021-05-29] MEDS ORDERED: ONDANSETRON 4 MG/2 ML VIAL ONE (13:49)
[2021-05-29] MEDS ORDERED: NA CHLORIDE 0.9% 500 ML ONE (13:49)
[2021-05-29 14:04] LABS: Absolute Lymphocytes (CBC) 0.6 K/uL (0.7-4.9); Basophils % 0.6 % (0-1.3); Hematocrit 25.8 % (36.0-45.0); Lymphocytes % 10.4 % (15.3-44.8); MPV 8.2 fL (7.6-11.3); RBC Red Blood Cell Count 2.39 M/uL (3.86-4.86)
[2021-05-29 14:11] LABS: Protime INR 1.82
[2021-05-29 14:41] LABS: Albumin 2.8 g/dL (3.4-5.0); Bilirubin Direct 2.1 mg/dL (0-0.2); Bilirubin Total 6.3 mg/dL (0.2-1.0); Potassium 2.4 mmol/L (3.5-5.1); Protein, Total 5.8 g/dL (6.4-8.2)
--- NOTE | 2021-05-29 15:14 | ER ---
Nurse's Notes [facility] Name: Ciara Faith Age: 71 yrs Sex: Female : 1950 Arrival Date: 05/29/2021 Time: 13:27 Bed 5 Private MD: Diagnosis: Hypo-osmolality and hyponatremia;Alcohol abuse;Alcohol dependence;Altered mental status, unspecified;Hypokalemia Presentation: 05/29 13:27 Chief complaint: EMS states: 3 WK BINGE OF [place], WITH LOSS OF APPETITE AND kd3 GEN WKN. Coronavirus screen: At this time, the client does not indicate any symptoms associated with coronavirus-19. Ebola Screen: No symptoms or risks identified at this time. Initial Sepsis Screen: Does the patient meet any 2 criteria? Altered Mental Status. HR > 90 bpm. Yes Does the patient have a suspected source of infection? No. Patient's initial sepsis screen is negative. Risk Assessment: Do you want to hurt yourself or someone else? Patient reports no desire to harm self or others. Onset of symptoms is unknown. Care prior to arrival: Glucose check: 117. 13:27 Method Of Arrival: EMS: [facility] kd3 13:27 Acuity: LINA 2 kd3 Triage Assessment: 13:27 General: Appears ill, Behavior is drowsy. Pain: Denies pain. EENT: Sclera/Cornea kd3 JAUNDICED. Neuro: Level of Consciousness is obeys commands, lethargic. Cardiovascular: No deficits noted. Respiratory: Airway is patent Respiratory effort is even, unlabored, Respiratory pattern is regular, symmetrical. GI: No signs and/or symptoms were reported involving the gastrointestinal system. : No signs and/or symptoms were reported regarding the genitourinary system. Derm: Skin is jaundiced. Musculoskeletal: No deficits noted. Historical: - Allergies: 20:05 [place]; bs2 - Immunization history:: Adult Immunizations unknown. - Social history:: Smoking status: Patient reports the use of cigarette tobacco products, unknown amount. Screenin:18 Abuse screen: Denies threats or abuse. Denies injuries from another. Nutritional kd3 screening: No deficits noted. Tuberculosis screening: No symptoms or risk factors identified. Assessment: 14:00 General: SEE TRIAGE NOTE. kd3 15:00 Reassessment: No changes from previously documented assessment. Patient and/or family kd3 updated on plan of care and expected duration. Pain level reassessed. STAFF UNABLE TO OBTAIN PIV. ATTEMPTS CONTINUE. 16:00 Reassessment: No changes from previously documented assessment. Patient and/or family kd3 updated on plan of care and expected duration. Pain level reassessed. STAFF REMAINS UNABLE TO OBTAIN PIV, PT UNCOOPERATIVE. PROVIDER INFORMED. 17:00 Reassessment: PROVIDER AT B/S FOR CVC PLACEMENT. PT UNABLE TO CONSENT 2/2 AMS, kd3 PROCEDURE DEEMED EMERGENT. Vital Signs: 13:27 BP 91 / 58; Pulse 106; Resp 17; Temp 98.3; Pulse Ox 99% ; kd3 14:17 BP 100 / 71; Pulse 110; Resp 17; Pulse Ox 100% on R/A; kd3 14:20 Temp 98.1; kd3 15:00 BP 109 / 67; Pulse 132; Resp 14; Pulse Ox 100% ; kd3 16:00 BP 93 / 63; Pulse 108; Resp 15; Pulse Ox 100% ; kd3 17:00 BP 89 / 41; Pulse 109; Resp 13; Pulse Ox 100% ; kd3 18:00 BP 97 / 44; Pulse 102; Resp 12; Pulse Ox 100% ; bp 19:45 BP 105 / 63; Pulse 104; Resp 16; Temp 98.0; Pulse Ox 99% ; Pain 0/10; bs2 ED Course: 13:27 Patient arrived in ED. kd3 13:29 Triage completed. kd3 13:29 Leroy Paris [facility]. jr8 13:29 Paul Melvin MD is Attending Physician. jr8 13:35 Arm band placed on. kd3 14:18 Patient has correct armband on for positive identification. Bed in low position. Call kd3 light in reach. Side rails up X2. surveillance monitor on. Pulse ox on. NIBP on. 15:12 Andrei Rojo is Hospitalizing Provider. jr8 17:00 Assisted provider with central line placement. Set up central line tray. Triple lumen kd3 line placed in right femoral. Line placed by Leroy AN Placement verified by blood return, Dressed with Tegaderm, Patient tolerated well. Before procedure, did Practitioner(s) obtain informed consent? No. Patient \T\ family education about procedure, CLABSI prevention and S/S of infection? No. Time-out/Briefing performed prior to start of procedure? Yes. Was handwashing/sanitizing done immediately prior to procedure? Yes. Was patient positioned to in a way to prevent air embolism? Yes. Was procedure site sterilized? Yes, with chlorhexidine. Was the site allowed to dry? Yes. Was local anesthetic and/or sedation utilized? Yes. During the procedure, did the Practitioner(s) maintain a sterile field? Yes. Were unused ports clamped during insertion? Yes. Was a 2nd qualified MD obtained after 3 unsuccessful insertion attempts? N/A. Was blood aspirated from each lumen? Yes. After the procedure, did the Practitioner(s) clean the site and apply a sterile dressing? Yes. 18:26 Armando Florian, RN is Primary Nurse. bp 20:05 Patient admitted, IV remains in place. bs2 Administered Medications: 17:00 Drug: Zofran (Ondansetron) 4 mg Route: IVP; Site: right femoral; kd3 18:56 Follow up: Response: Nausea is decreased bp 17:00 Drug: NS 0.9% 500 ml Route: IV; Rate: bolus; Site: right femoral; kd3 18:56 Follow up: IV Status: Completed infusion; IV Intake: 500ml bp 17:30 Drug: Potassium Chloride 20 mEq Route: IV; Rate: calculated rate; Site: right femoral; kd3 17:30 Drug: NS 0.9% 1000 ml Route: IV; Rate: 125 ml/hr; Site: right femoral; kd3 17:30 Drug: Magnesium Sulfate 2 grams Route: IVPB; Infused Over: 2 hrs; Site: right femoral; kd3 Intake: 18:56 IV: 500ml; Total: 500ml. bp Outcome: 15:13 Decision to Hospitalize by Provider. asif 20:05 Admitted to Med/surg accompanied by tech, via stretcher, room 430, with chart, Report bs2 called to Fred MALDONADO 20:05 Condition: stable 20:05 Instructed on the need for admit. 20:06 Patient left the ED. bs2 Signatures: Leroy Paris PA PA jrArmando Faria, RN RN Mabel Villa RN RN bs2 Yani Gregorio RN RN kd3
--- NOTE | 2021-05-29 15:14 | EDPHYS ---
Physician Documentation [facility] Name: Ciara Faith Age: 71 yrs Sex: Female : 1950 Arrival Date: 05/29/2021 Time: 13:27 Bed 5 Private MD: ED Physician Paul Melvin HPI: 05/29 14:21 This 71 yrs old Female presents to ER via EMS with complaints of ETOH jr8 ABUSE/AMS. 14:21 This is a 71-year-old female patient that was brought to the emergency department via jr8 EMS after called for mental decline and EtOH abuse. Patient has a history of heavy alcoholism with cirrhosis of the liver. EMS stated that he was concerned because she has not been eating well and is now having nausea and vomiting and a more abrupt decline in mental status. Patient alert to person and place upon arrival in no acute distress but slow to respond. Historical: - Allergies: 20:05 [place]; bs2 - Immunization history:: Adult Immunizations unknown. - Social history:: Smoking status: Patient reports the use of cigarette tobacco products, unknown amount. ROS: 14:21 Eyes: Negative for injury, pain, redness, and discharge, ENT: Negative for injury, jr8 pain, and discharge, Neck: Negative for injury, pain, and swelling, Cardiovascular: Negative for chest pain, palpitations, and edema, Respiratory: Negative for shortness of breath, cough, wheezing, and pleuritic chest pain, Back: Negative for injury and pain, MS/Extremity: Negative for injury and deformity, Skin: Negative for injury, rash, and discoloration. 14:21 Abdomen/GI: Positive for nausea and vomiting, Negative for abdominal pain. 14:21 Neuro: Positive for altered mental status, weakness. Exam: 14:21 Respiratory: Lungs have equal breath sounds bilaterally, clear to auscultation and jr8 percussion. No rales, rhonchi or wheezes noted. No increased work of breathing, no retractions or nasal flaring. Abdomen/GI: Soft, non-tender, with normal bowel sounds. No distension or tympany. No guarding or rebound. No evidence of tenderness throughout. Back: No spinal tenderness. No costovertebral tenderness. Full range of motion. MS/ Extremity: Pulses equal, no cyanosis. Neurovascular intact. Full, normal range of motion. 14:21 Eyes: Periorbital structures: appear normal, Pupils: equal, round, and reactive to light and accomodation, Extraocular movements: intact throughout, Conjunctiva: normal, Corneas: are normal, Sclera: icterus, is present, Anterior chamber: normal, Lids and lashes: appear normal. 14:21 Skin: Appearance: Color: jaundiced. 14:21 Neuro: Orientation: to person, place, Mentation: able to follow commands, slow to respond, Memory: immediate memory is intact, remote memory is intact. recent memory is impaired, Cranial nerves: CN II- XII are normal as tested, extraocular movements are intact, Speech is clear and appropriate. Tongue strength is normal, Cerebellar function: is grossly normal, Motor: moves all fours, Sensation: no obvious gross deficits, seizure activity, is not displayed by the patient, Abnormal movements: there are no abnormal movements. Vital Signs: 13:27 BP 91 / 58; Pulse 106; Resp 17; Temp 98.3; Pulse Ox 99% ; kd3 14:17 BP 100 / 71; Pulse 110; Resp 17; Pulse Ox 100% on R/A; kd3 14:20 Temp 98.1; kd3 15:00 BP 109 / 67; Pulse 132; Resp 14; Pulse Ox 100% ; kd3 16:00 BP 93 / 63; Pulse 108; Resp 15; Pulse Ox 100% ; kd3 17:00 BP 89 / 41; Pulse 109; Resp 13; Pulse Ox 100% ; kd3 18:00 BP 97 / 44; Pulse 102; Resp 12; Pulse Ox 100% ; bp 19:45 BP 105 / 63; Pulse 104; Resp 16; Temp 98.0; Pulse Ox 99% ; Pain 0/10; bs2 Procedures: 17:11 Central Line: the site was prepped with Betadine, in sterile fashion, a triple lumen jr8 catheter was inserted, in the right femoral vein, in 1 attempts. placement was verified, by blood return, the site was dressed with 4X4s, Tegaderm, foam tape, using sterile technique, the patient tolerated the procedure, well. MDM: 13:30 Patient medically screened. [facility] 14:21 Data reviewed: vital signs, nurses notes, lab test result(s), EKG. Data interpreted: jr8 Pulse oximetry: on room air is 100 %. Interpretation: normal. Counseling: I had a detailed discussion with the patient and/or guardian regarding: the historical points, exam findings, and any diagnostic results supporting the discharge/admit diagnosis, lab results. 15:12 Counseling: I had a detailed discussion with the patient and/or guardian regarding: the asif need for further work-up and treatment in the hospital. 05/29 13:30 Order name: Basic Metabolic Panel; Complete Time: 14:46 [facility] 05/29 13:30 Order name: CBC with Diff; Complete Time: 17:11 [facility] 05/29 13:30 Order name: Hepatic Function; Complete Time: 14:46 [facility] 05/29 13:30 Order name: Lipase; Complete Time: 14:46 [facility] 05/29 13:30 Order name: Protime (+inr); Complete Time: 14:29 [facility] 05/29 13:30 Order name: Ptt, Activated; Complete Time: 14:29 [facility] 05/29 13:30 Order name: AMMONIA; Complete Time: 14:29 [facility] 05/29 13:47 Order name: ETOH Level [facility] 05/29 13:48 Order name: Alcohol Serum/Plasma; Complete Time: 17:11 EDMS 05/29 14:29 Order name: Urine Microscopic Only [facility] 05/29 14:47 Order name: Magnesium [facility] 05/29 14:47 Order name: Magnesium; Complete Time: 17:11 EDMS 05/29 15:07 Order name: SARS-COV-2 RT PCR (Document "Date of Onset" if Symptomatic); Complete Time: [facility] 17:11 05/29 13:30 Order name: Labs collected and sent; Complete Time: 13:44 [facility] 05/29 16:14 Order name: CBC Smear Scan; Complete Time: 17:11 EDMS Administered Medications: 17:00 Drug: Zofran (Ondansetron) 4 mg Route: IVP; Site: right femoral; kd3 18:56 Follow up: Response: Nausea is decreased bp 17:00 Drug: NS 0.9% 500 ml Route: IV; Rate: bolus; Site: right femoral; kd3 18:56 Follow up: IV Status: Completed infusion; IV Intake: 500ml bp 17:30 Drug: Potassium Chloride 20 mEq Route: IV; Rate: calculated rate; Site: right femoral; kd3 17:30 Drug: NS 0.9% 1000 ml Route: IV; Rate: 125 ml/hr; Site: right femoral; kd3 17:30 Drug: Magnesium Sulfate 2 grams Route: IVPB; Infused Over: 2 hrs; Site: right femoral; kd3 Disposition: 17:12 Critical Care:. jr8 05/30 07:05 Co-signature as Attending Physician, Paul Melvin MD I agree with the assessment and rn plan of care. Attestation: The patient's history, exam findings, diagnostics, and a summary of any interventions or procedures was reviewed in detail with Leroy AN. Disposition Summary: 05/29/21 15:13 Hospitalization Ordered Hospitalization Status: Inpatient Admission jr8 Provider: Andrei Rojo jr Location: Telemetry/MedSurg (Inpatient) jr8 Condition: Stable jr8 Problem: new jr8 Symptoms: have improved jr8 Bed/Room Type: Standard [facility] Room Assignment: 430(05/29/21 19:21) cg Diagnosis - Hypo-osmolality and hyponatremia jr8 - Alcohol abuse jr8 - Alcohol dependence jr8 - Altered mental status, unspecified jr8 - Hypokalemia jr8 Forms: - Medication Reconciliation Form jr8 - SBAR form jr8 Critical care time excluding procedures: 05/29 17:12 Critical care time: Bedside Care: 20 minutes, Consultation: 10 minutes, Family jr8 Intervention: 10 minutes. Total time: 40 minutes Signatures: Dispatcher [employer] EDPaul Valdovinos MD MD rn Roszak, Josh, PA PA jr8 Kianna Chambers RN RN cg Mabel Jain RN RN bs2 Yani Gregorio RN RN kd3 Armando Florian RN bp Corrections: (The following items were deleted from the chart) : 15:13 jr8 cg
--- NOTE | 2021-05-29 16:09 | P.HP ---
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 She has 3 children. 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 She works as a tax filer. - Family History Mother -: Cancer Father -: Lung disease Notes: emphysema - Social History Alcohol use: Yes CD- Drugs: No Caffeine use: No Physical Examination - Studies Laboratory Data (last 24 hrs) 05/29/21 13:53: PT 21.0 H, INR 1.82, APTT 35.1 05/29/21 13:53: WBC 5.60, Hgb 9.7 L, Hct 25.8 L, Plt Count 131 L 05/29/21 13:53: Sodium 118 L*, Potassium 2.4 L*, BUN 9, Creatinine 1.08, Glucose 116 H, Total Bilirubin 6.3 H*, AST 51 H, ALT 15, Alkaline Phosphatase 159 H, Lipase 30 L Assessment and Plan - Advance Directives Does patient have a Living Will: Yes Does patient have a Durable POA for Healthcare: No
[2021-05-29 16:14] LABS: Blood Morphology Comment NOTED (NOT SEEN); Macrocytosis 1+; Platelet Estimate ADEQ; White Blood Cell Scan OK (OK)
[2021-05-29] MEDS ORDERED: NA CHLORIDE 0.9% 1,000 ML ONE (17:28)
[2021-05-29] MEDS ORDERED: Magnesium Sulfate 2gm IVPB 2 G/50 ML BAG IV ONE (17:28)
[2021-05-29] MEDS ORDERED: KCL 20 MEQ/100 mL IVPB 20 MEQ/100 ML BAG IV ONE (17:29)
--- NOTE | 2021-05-29 17:59 | P.HP ---
Certification for Inpatient Patient admitted to: Inpatient With expected LOS: >2 Midnights Practitioner: I am a practitioner with admitting privileges, knowledge of patient current condition, hospital course, and medical plan of care. Services: Services provided to patient in accordance with Admission requirements found in Title 42 Section 412.3 of the Code of Federal Regulations Patient History Date of Service: 05/29/21 Reason for admission: Nausea and vomiting History of Present Illness: 71-year-old woman with a history of chronic alcoholism and liver cirrhosis was brought to the emergency department by EMS due to nausea and vomiting and altered mental status. According to report patient called EMS due to concern for declining mental status, nausea and vomiting, poor oral intake and alcohol abuse. Patient oriented to person and place but slow to respond and cannot provide any history. Blood work in the emergency department showed hyponatremia with sodium of 118, hypokalemia potassium 2.4, hypomagnesemia. Alcohol level is less than 10. She has coagulopathy with INR of 1.8. Patient has altered mental status likely secondary to hyponatremia. Ammonia level is within normal limits. Patient is hospitalized for further management. 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 She has 3 children. 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 She works as a tax filer. - Family History Mother -: Cancer Father -: Lung disease Notes: emphysema - Social History Alcohol use: Yes CD- Drugs: No Caffeine use: No Review of Systems Other: Patient is confused and slow to respond. Unable to obtain review of systems. Physical Examination - Physical Exam General: In no apparent distress, Oriented x2, Confused HEENT: Atraumatic, PERRLA, Mucous membr. moist/pink, Scleral icterus Neck: Supple, JVD not distended Respiratory: Clear to auscultation bilaterally, Normal air movement Cardiovascular: No edema, Normal S1 S2, No murmurs, Other (Tachycardia) Capillary refill: <2 Seconds Gastrointestinal: Normal bowel sounds, Soft and benign, Distended (Mildly distended) Musculoskeletal: No swelling, No tenderness Integumentary: No rashes, No cyanosis Neurological: Normal strength at 5/5 x4 extr, Other (Slow speech, psychomotor retardation.) Lymphatics: No axilla or inguinal lymphadenopathy - Studies Laboratory Data (last 24 hrs) 05/29/21 13:53: Magnesium 0.9 L* D 05/29/21 13:53: PT 21.0 H, INR 1.82, APTT 35.1 05/29/21 13:53: WBC 5.60, Hgb 9.7 L, Hct 25.8 L, Plt Count 131 L 05/29/21 13:53: Sodium 118 L*, Potassium 2.4 L*, BUN 9, Creatinine 1.08, Glucose 116 H, Total Bilirubin 6.3 H*, AST 51 H, ALT 15, Alkaline Phosphatase 159 H, Lipase 30 L Assessment and Plan - Problems (Diagnosis) (1) Coagulopathy Current Visit: Yes Status: Acute (2) Acute metabolic encephalopathy Current Visit: No Status: Acute (3) Hypokalemia Onset Date: 06/30/17 Current Visit: No Status: Acute (4) Hypomagnesemia Onset Date: 06/30/17 Current Visit: No Status: Acute (5) Hyponatremia Onset Date: 05/20/18 Current Visit: No Status: Acute (6) Hepatic cirrhosis Onset Date: 06/30/17 Current Visit: No Status: Chronic Qualifiers: Hepatic cirrhosis type: alcoholic cirrhosis Ascites presence: without ascites Qualified Code(s): K70.30 - Alcoholic cirrhosis of liver without ascites - Plan Admit patient to the medical floor. Patient with beer potomania. Treat hyponatremia with IV normal saline. Replace potassium and magnesium. Check phosphorus level. Monitor BMP every 6 hours, being careful not to overcorrect by more than 10 to 12 mEq/day. Neurochecks. Initiate CIWA protocol with IV and oral Ativan. UA is pending. Ammonia level is within normal limits. - Advance Directives Does patient have a Living Will: Yes Does patient have a Durable POA for Healthcare: No
[2021-05-29] MEDS ORDERED: FLUMAZENIL 0.1 MG/ML (5 mL VIAL) IV PRN (20:01)
[2021-05-29] MEDS ORDERED: HALOPERIDOL LACT 5 MG/ML INJ IM PRN (20:01)
[2021-05-29] MEDS ORDERED: ONDANSETRON 4 MG/2 ML VIAL IV PRN (20:01)
[2021-05-29] MEDS ORDERED: LORazepam 2 MG/ML VIAL IV PRN ×2 (20:01)
[2021-05-29] MEDS: NS KCL 20MEQ 20 MEQ/1,000 ML BAG IV SCH (20:01)
[2021-05-29] MEDS: POTASSIUM CL 40 MEQ in NA CHLORIDE 0.9% 500 ML IV SCH ×2 (20:29→21:00)
[2021-05-29 21:20] VITALS: BMI 2858.5
[2021-05-29 21:25] LABS: Phosphorus 1.8 mg/dL (2.5-4.9)
[2021-05-29 21:26] LABS: Potassium 2.6 mmol/L (3.5-5.1)
[2021-05-29] MEDS: LORazepam 2 MG/ML VIAL IV SCH (21:30)
[2021-05-30] MEDS: LORazepam 2 MG/ML VIAL IV SCH ×6 (00:01→20:01)
[2021-05-30] MEDS: NS KCL 20MEQ 20 MEQ/1,000 ML BAG IV SCH (00:58)
[2021-05-30] MEDS: HEPARIN 5000 UNIT/ML 1 ML VIAL SQ SCH ×3 (01:59→16:15)
[2021-05-30 02:17] LABS: Absolute Lymphocytes (CBC) 0.4 K/uL (0.7-4.9); Basophils % 0.3 % (0-1.3); Hematocrit 22.8 % (36.0-45.0); MPV 8.1 fL (7.6-11.3); RBC Red Blood Cell Count 2.07 M/uL (3.86-4.86)
[2021-05-30 02:34] LABS: Albumin 2.1 g/dL (3.4-5.0); Bilirubin Total 4.4 mg/dL (0.2-1.0); Magnesium 1.6 mg/dL (1.8-2.4); Phosphorus 1.5 mg/dL (2.5-4.9); Protein, Total 4.4 g/dL (6.4-8.2); Thyroid Stimulating Hormone 2.38 uIU/mL (0.360-3.740)
[2021-05-30 02:38] LABS: Potassium 2.9 mmol/L (3.5-5.1)
[2021-05-30] MEDS ORDERED: MAGNESIUM SULFATE 1 gm IVPB 1 GM/100 ML BAG IV ONE (02:54)
[2021-05-30] MEDS ORDERED: KCL 20 MEQ/100 mL IVPB 20 MEQ/100 ML BAG IV SCH (03:00)
[2021-05-30] MEDS ORDERED: KCL 20 MEQ/100 mL IVPB 20 MEQ/100 ML BAG IV ONE (04:59)
[2021-05-30 08:39] LABS: Potassium 3.6 mmol/L (3.5-5.1)
[2021-05-30] MEDS ORDERED: POTASSIUM PHOS IN 0.9 % NACL 15 MMOL/250 ML BAG IV ONE (09:00)
[2021-05-30] MEDS ORDERED: Magnesium Sulfate 2gm IVPB 2 G/50 ML BAG IV ONE (09:13)
[2021-05-30] MEDS: FOLIC ACID 1 MG in NA CHLORIDE 0.9% 50 ML IV SCH (09:23)
[2021-05-30] MEDS: THIAMINE 200 MG/2 ML INJ IVP SCH (09:26)
[2021-05-30 15:16] LABS: Potassium 3.6 mmol/L (3.5-5.1)
--- NOTE | 2021-05-30 16:13 | P.PN ---
Subjective Date of Service: 05/30/21 Chief Complaint: Nausea and vomiting Patient is slow to respond. No nausea or vomiting. She is oriented to person and place. No symptoms or signs of alcohol withdrawal at this time. Physical Examination - Vital Signs Temperature: 96.5 F Blood Pressure: 102/60 Pulse: 84 Respirations: 17 Pulse Ox (%): 98 - Physical Exam General: In no apparent distress, Other (Psychomotor retardation) HEENT: PERRLA, Mucous membr. moist/pink, Scleral icterus Neck: JVD not distended Respiratory: Clear to auscultation bilaterally, Normal air movement Cardiovascular: No edema, Regular rate/rhythm, Normal S1 S2 Gastrointestinal: Normal bowel sounds, Soft and benign, Non-distended, No tenderness Musculoskeletal: No swelling Integumentary: Other (Jaundiced skin) Neurological: Other (No focal motor deficit.) - Studies Laboratory Data (last 24 hrs) 05/29/21 13:53: Magnesium 0.9 L* D 05/29/21 13:53: WBC 5.60, Hgb 9.7 L, Hct 25.8 L, Plt Count 131 L Assessment And Plan - Current Problems (Diagnosis) (1) Coagulopathy Current Visit: Yes Status: Acute (2) Acute metabolic encephalopathy Current Visit: No Status: Acute (3) Hypokalemia Onset Date: 06/30/17 Current Visit: No Status: Acute (4) Hypomagnesemia Onset Date: 06/30/17 Current Visit: No Status: Acute (5) Hyponatremia Onset Date: 05/20/18 Current Visit: No Status: Acute (6) Hepatic cirrhosis Onset Date: 06/30/17 Current Visit: No Status: Chronic Qualifiers: Hepatic cirrhosis type: alcoholic cirrhosis Ascites presence: without ascites Qualified Code(s): K70.30 - Alcoholic cirrhosis of liver without ascites - Plan Patient with beer potomania. Hyponatremia improved. IV normal saline discontinued. Continue to replace potassium and other electrolytes as needed. Continue to monitor BMP. Neurochecks. CIWA protocol with IV and oral Ativan for impending alcohol withdrawal. Ammonia level is within normal limits. Blood pressure readings are better today. I am told is leaning toward hospice. We will consult hospice to evaluate.
[2021-05-30 20:15] LABS: Potassium 3.3 mmol/L (3.5-5.1)
[2021-05-30] MEDS: KCL 20 MEQ/100 mL IVPB 20 MEQ/100 ML BAG IV SCH ×2 (20:43→22:37)
--- NOTE | 2021-05-30 21:10 | RAD REPORT ---
EXAM DESCRIPTION: RAD - Chest Single View - 05/30/2021 8:02 pm CLINICAL HISTORY: PICC line placement PICC insertion COMPARISON: None. FINDINGS: Portable chest was obtained following placement of a right upper extremity PICC line. The catheter tip is in the distal SVC.
[2021-05-30 22:03] VITALS: O2SAT 96
[2021-05-31] MEDS: LORazepam 2 MG/ML VIAL IV SCH ×4 (00:01→11:34)
[2021-05-31] MEDS: HEPARIN 5000 UNIT/ML 1 ML VIAL SQ SCH ×2 (01:00→09:00)
[2021-05-31 05:34] LABS: Absolute Lymphocytes (CBC) 0.4 K/uL (0.7-4.9); Basophils % 0.4 % (0-1.3); Hematocrit 21.7 % (36.0-45.0); Lymphocytes % 18.1 % (15.3-44.8); RBC Red Blood Cell Count 1.93 M/uL (3.86-4.86)
[2021-05-31 05:47] LABS: Albumin 2.2 g/dL (3.4-5.0); Bilirubin Total 3.4 mg/dL (0.2-1.0); Magnesium 2.3 mg/dL (1.8-2.4); Phosphorus 2.1 mg/dL (2.5-4.9); Potassium 3.9 mmol/L (3.5-5.1)
[2021-05-31] MEDS ORDERED: POTASSIUM PHOS IN 0.9 % NACL 15 MMOL/250 ML BAG IV ONE (06:34)
[2021-05-31] MEDS ORDERED: KCL 20 MEQ/100 mL IVPB 20 MEQ/100 ML BAG IV SCH (07:00)
[2021-05-31] MEDS: THIAMINE 200 MG/2 ML INJ IVP SCH (08:14)
[2021-05-31] MEDS: FOLIC ACID 1 MG in NA CHLORIDE 0.9% 50 ML IV SCH (08:14)
[2021-05-31 11:36] VITALS: BP 87/48; TEMP 96.2
--- NOTE | 2021-05-31 13:11 | P.PN ---
Subjective Date of Service: 05/31/21 Chief Complaint: Nausea and vomiting Patient is slow to respond. She has no complaints and states she feels fine. No nausea or vomiting. She is oriented to person and place. No symptoms or signs of alcohol withdrawal at this time. Physical Examination - Vital Signs Temperature: 96.2 F Blood Pressure: 87/48 Pulse: 88 Respirations: 18 Pulse Ox (%): 97 Assessment And Plan - Current Problems (Diagnosis) (1) Coagulopathy Status: Acute (2) Acute metabolic encephalopathy Status: Acute (3) Hypokalemia Onset Date: 06/30/17 Status: Acute (4) Hypomagnesemia Onset Date: 06/30/17 Status: Acute (5) Hyponatremia Onset Date: 05/20/18 Status: Acute (6) Hepatic cirrhosis Onset Date: 06/30/17 Status: Chronic Qualifiers: Hepatic cirrhosis type: alcoholic cirrhosis Ascites presence: without ascites Qualified Code(s): K70.30 - Alcoholic cirrhosis of liver without ascites - Plan Patient with beer potomania. Hyponatremia improved. Current sodium level is 130. IV normal saline discontinued. Hypokalemia corrected. CIWA protocol with IV and oral Ativan for impending alcohol withdrawal. Ammonia level is within normal limits. Patient with intermittent hypotension. Patient accepted to inpatient hospice.
--- NOTE | 2021-05-31 13:16 | P.DS ---
Admission Date: 05/29/21 Discharge Date: 05/31/21 Disposition: HOSPICE-MEDICAL FACILITY Reason for Admission: Nausea and vomiting - Problems (1) Coagulopathy Status: Acute (2) Acute metabolic encephalopathy Status: Acute (3) Hypokalemia Onset Date: 06/30/17 Status: Acute (4) Hypomagnesemia Onset Date: 06/30/17 Status: Acute (5) Hyponatremia Onset Date: 05/20/18 Status: Acute (6) Hepatic cirrhosis Onset Date: 06/30/17 Status: Chronic Qualifiers: Hepatic cirrhosis type: alcoholic cirrhosis Ascites presence: without ascites Qualified Code(s): K70.30 - Alcoholic cirrhosis of liver without ascites Brief History of Present Illness: 71-year-old woman with a history of chronic alcoholism and liver cirrhosis was brought to the emergency department by EMS due to nausea and vomiting and altered mental status. According to report patient called EMS due to concern for declining mental status, nausea and vomiting, poor oral intake and alcohol abuse. Patient oriented to person and place but slow to respond and could not provide any history. Blood work in the emergency department showed hyponatremia with sodium of 118, hypokalemia potassium 2.4, hypomagnesemia. Alcohol level is less than 10. She has coagulopathy with INR of 1.8. Patient has altered mental status likely secondary to hyponatremia. Ammonia level is within normal limits. Patient hospitalized for further management. Hospital Course: Patient admitted to the medical floor and treated for hyponatremia secondary to alcoholism and reduced oral intake. Her sodium level improved to 129 within 24 hours. Patient has psychomotor retardation, slow to respond. Decreased functional performance status, ECOG of 4. Per report, she has had poor oral intake over several weeks. Patient with liver cirrhosis with hypoalbuminemia and coagulopathy indicating liver failure. requested for hospice evaluation. Patient accepted to hospice. She is discharged to hospice service. Vital Signs/Physical Exam: Temp Pulse Resp BP Pulse Ox 96.2 F L 88 18 87/48 L 97 05/31/21 13:11 05/31/21 13:11 05/31/21 13:11 05/31/21 13:11 05/31/21 13:11 General: In no apparent distress, Confused HEENT: Mucous membr. moist/pink, Scleral icterus Neck: JVD not distended Respiratory: Clear to auscultation bilaterally Cardiovascular: Edema (Bilateral legs) Gastrointestinal: Soft and benign, No tenderness, Distended (Mildly distended) Musculoskeletal: No clubbing, No tenderness Integumentary: No rashes, No cyanosis, Other (Jaundiced skin) Neurological: Other (Psychomotor retardation, globally weak.) Laboratory Data at Discharge: WBC 2.30 K/uL (4.3-10.9) L D 05/31/21 05:00 Hgb 7.7 g/dL (12.0-15.0) L 05/31/21 05:00 Hct 21.7 % (36.0-45.0) L 05/31/21 05:00 Plt Count 82 K/uL (152-406) L 05/31/21 05:00 PT 21.0 SECONDS (9.5-12.5) H 05/29/21 13:53 INR 1.82 05/29/21 13:53 APTT 35.1 SECONDS (24.3-36.9) 05/29/21 13:53 Sodium Cancelled 05/31/21 17:00 Potassium Cancelled 05/31/21 17:00 BUN Cancelled 05/31/21 17:00 Creatinine Cancelled 05/31/21 17:00 Glucose Cancelled 05/31/21 17:00 Phosphorus 2.1 mg/dL (2.5-4.9) L 05/31/21 05:00 Magnesium 2.3 mg/dL (1.8-2.4) D 05/31/21 05:00 Total Bilirubin 3.4 mg/dL (0.2-1.0) H 05/31/21 05:00 AST 37 U/L (15-37) 05/31/21 05:00 ALT 10 U/L (12-78) L 05/31/21 05:00 Alkaline Phosphatase 125 U/L (45-117) H 05/31/21 05:00 Lipase 30 U/L (73-393) L 05/29/21 13:53 Home Medications: Furosemide [Lasix] 20 mg PO DAILY PRN #30 tab 03/16/21 Pantoprazole [Protonix Tab*] 40 mg PO DAILY #30 tab 03/16/21 Thiamine HCl 100 mg PO DAILY #30 tablet 03/16/21 Followup: NONE,NONE [Primary Care Provider] -
[2021-05-31] MEDS ORDERED: LORazepam 2 MG/ML VIAL IV SCH (19:00)
== END 2021-05-31 12:02 | disposition hospice, inpatient (51) | DRG 813 ==
LOC: ER 13:24 → ERHOLD 16:10 → 4TH 19:51
PROVIDERS: ADMIT Internal Medicine; ATTEND Internal Medicine
PROC: 06HY33Z Insertion of Infusion Device into Lower Vein, Percutaneous Approach (ICD-10-PCS; principal; 2021-05-29)
DX: D68.9 Coagulation defect, unspecified (principal); G93.41 Metabolic encephalopathy; E87.1 Hypo-osmolality and hyponatremia; E87.6 Hypokalemia; E83.42 Hypomagnesemia; K70.30 Alcoholic cirrhosis of liver without ascites; I95.9 Hypotension, unspecified; F10.20 Alcohol dependence, uncomplicated; R68.89 Other general symptoms and signs; R41.843 Psychomotor deficit; Z20.822 Contact with and (suspected) exposure to COVID-19
CPT/HCPCS: 36415; 36569; 71045; 80048; 80053; 80076; 80320; 82140; 83690; 83735; 84100; 84443; 85025; 85610; 85730; 94760; 96361; 96374; 96375; 97161; 99285; J1644; J2405; J3411; J3475; J3480; J7030; J7040; U0003

== ENCOUNTER 2021-05-31 12:06 | Inpatient (IN) | payer OTHER ==
[2021-05-31 12:14] VITALS: BMI 20.5
--- OUTSIDE RECORDS SUMMARY | 2021-05-31 12:23 | XMS REPORT | Continuity of Care Document ---
:1950 Author Organization [facility] t Address [address] [place] [address] Care Team Providers Name Role Phone FER ESPARZA Attending Clinician Unavailable GAGANDEEP ALANIS Attending Clinician Unavailable Ruth Attending Clinician Unavailable Fer Esparza MD Attending Clinician [phone] Paola Ramírez MD Attending Clinician [phone] FER ESPARZA Admitting Clinician Unavailable PAOLA RAMÍREZ Admitting Clinician Unavailable Payers Payer Name Policy Type Policy Number Effective Date Expiration Date [facility] [id number] 2015 00:00:00 [facility] [id number] 2020 HEALTHCARE 00:00:00 Problems Condition Condition Condition [...] [facility] 00:[facility]: Medical N 00 [place] Hydrocod Drug Active [facility] one-Acet Allergy 03-10 [facility] - aminophe 00:00: Medical n 00 [place] Imitrex Adverse Active Info Not [facility] Reaction Available [facility] ent [facility] [place] Adverse Active Info Not [facility] Reaction Available [facility] Social History Social Habit Start Date Stop Date Quantity Comments Source Sex Assigned At [facility] Medications Ordered Filled Start Stop Current Ordering Indication Dosage Frequency Signature Comments Components Source Medication Medication Date Date Medication? Clinician (SIG) Name Name Cefdinir Cefdinir Carin as [facility] St 8-03-04 Maddison directed [facility] - 00:00: 00:00 Memoria 00 :00 [facility] Vital Signs Vital Name Observation Time Observation Value Comments Source WEIGHT 2020-03-10 00:00:00 59.9 kg WEIGHT 2020-03-10 00:00:00 59.9 kg Systolic blood 2020-03-14 12:22:00 138 mm[Hg] [facility] Diastolic blood 2020-03-14 12:22:00 63 mm[Hg] [facility] Heart rate 2020-03-14 12:22:00 77 /min [facility] Body temperature 2020-03-14 12:22:00 36.17 Stella [facility] Respiratory rate 2020-03-14 12:22:00 18 /min [facility] Oxygen saturation in 2020-03-14 12:22:00 99 /min [facility] Arterial blood by Medical Ce nter Pulse oximetry Procedures Procedure Date / Time Performed Performing Clinician Dewayne rhodes POCT-GLUCOSE METER 2020-03-14 12:24:00 Sarai Ramírez [facility] POCT-GLUCOSE METER 2020-03-14 05:37:00 Sarai Ramírez [facility] CBC W/PLT COUNT & AUTO 2020-03-14 05:26:00 [facility] COMPREHENSIVE METABOLIC 2020-03-14 05:26:[address] [facility] PANEL [facility] MAGNESIUM 2020-03-14 05:26:[address] [facility] PHOSPHORUS 2020-03-14 05:26:00 Madi Mcleod [facility] Plan of Care Planned Activity Planned Date Details Comments Source Future Scheduled 2021-03-[address] [facility] Test 00:00:00 (#1) [code = [facility] Center INFLUENZA VACCINE (#1)] Future Scheduled 2020-07-[address] [facility] - Test 00:00:00 (12+) [code = [facility] Center DEPRESSION SCREENING (12+)] Future [...] Medica l Center breast (procedure) [code = 278284542] Future Scheduled [address] [facility] - Test 00:00:00 malignant neoplasm of Medica l Center colon (procedure) [code = 211717096] Encounters Start End Encounter Admission Attending Care Care Encounter Source Date/Time Date/Time Type Type Clinicians Facility Department ID 2020-03-10 Inpatient ER [facility] [id number] [facility] 13:36:00 ERIK DELAROSA 2021-04-17 2021-04-17 [facility] [id number] 2021-03-16 2021-03-16 [facility] [id number] [facility] 2021-03-01 2021-03-01 Outpatient RAFAEL ALANIS [facility] [id number] SLE 00:00:00 00:00:00 [facility] 2021-03-01 2021-03-01 [id number] [facility] 00[facility]00[facility]00 [facility] 2021-02-05 2021-02-05 [facility] [id number] [facility] 2021-01-25 2021-01-25 Outpatient RAFAEL ALANIS [facility] [id number] SLE 00:00:00 00:00:00 [facility] 2021-01-24 2021-01-24 [facility] [id number] 00:[facility]00 00:00:00 [facility] 2021-01-19 2021-01-19 [facility] [id number] [facility] 2021-01-05 2021-01-05 [facility] [id number] 00:[facility]00 00:00:00 [facility] 2020-11-30 2020-11-30 Outpatient RAFAEL ALANIS [facility] [id number] SLE 00:00:00 00:00:00 [facility] 2020-11-29 2020-11-29 [facility] [id number] 00:00[facility]00 00:00:00 [facility] 2020-11-21 2020-11-21 Outpatient [facility] [id number] [facility] 2020-11-16 2020-11-16 Outpatient ALDO RIVERA [facility] [id number] SLE 00:00:00 00:00:00 [facility] 2020-11-14 2020-11-14 [facility] [id number] 00:[facility]00 00:00:00 [facility] 2020-11-09 2020-11-09 Outpatient RAFAEL ALANIS [facility] [id number] SLE 00:00:00 00:00:00 [facility] 2020-11-02 2020-11-02 [facility] [id number] 00:00[facility]00 00:00:00 [facility] 2020-11-01 2020-11-01 Outpatient [facility] [id number] [facility] 2020-10-31 2020-10-31 [facility] [id number] 00:00[facility]00 00:00:00 [facility] 2020-10-30 2020-10-30 Outpatient [facility] [id number] [facility] 2020-10-25 2020-10-25 Out[facility] [id number] [facility] 2020-09-21 2020-09-21 Outpatient [facility] [id number] [facility] 2020-09-19 2020-09-19 Outpatient [facility] [id number] [facility] 2020-06-21 2020-06-21 Outpatient [facility] [id number] [facility] 2020-06-06 2020-06-06 Outpatient [facility] [id number] [facility] 2020-06-06 2020-06-06 [facility] [id number] [facility] 2020-03-10 2020-03-14 [facility] Erik Esparza [facility] [id number] [facility] 13:36:00 15:23:00 Encounter Sarai Ramírez [facility] 2020-02-28 2020-02-28 [facility] [id number] 09:52:00 09:52:00 t Specialty/U Yareli kes - Specialty rology [facility]rology [facility] l Clinic Outpati ent Clinics 2020-02-25 2020-02-25 [facility] [id number] 11:00:00 11:00:00 t Specialty/U Yareli kes - Specialty rology [facility]rology Clinic l Clinic Outpati ent Clinics 2019-12-29 2019-12-29 [facility] [id number] 10:02:00 10:02:00 t Specialty/U Yareli kes - Specialty rology [facility] l Clinic Outpati ent Clinics 2019-12-29 2019-12-29 [facility] [id number] 10:02:00 10:02:00 t Specialty/U Yareli kes - Specialty rology [facility]rology Clinic l Clinic Outpati ent Clinics 2019-12-13 2019-12-13 [facility] [id number] 11:00:00 11:00:00 t Specialty/U Yareli kes - Specialty rology [facility]Urology Clinic l Clinic Outpati ent Clinics 2019-12-13 2019-12-13 [facility] [id number] 08:52:00 08:52:00 t Specialty/U Yareli kes - Specialty rology [facility]Urology Clinic l Clinic Outpati ent Clinics 2019-10-14 2019-10-14 [facility] [id number] 11:03:00 11:03:00 t Specialty/U Yareli kes - Specialty rology [facility]Urology Clinic l Clinic Outpati ent Clinics 2019-10-12 2019-10-12 [facility] [id number] 13:32:00 13:32:00 t Specialty/U Yareli kes - Specialty rology [facility] /Urology Clinic l Clinic Outpati ent Clinics 2019-08-30 2019-08-30 [facility] [id number] 11:46:00 11:46:00 t [facility] Medicine l Medicine Outpati ent Clinics 2019-08-22 2019-08-22 [facility] [id number] 12:35:00 12:35:00 t [facility] Medicine Outpati ent Clinics 2019-08-18 2019-08-18 [facility] [id number] 10:45:00 10:45:00 t [facility] Medicine Outpati ent Clinics 2019-06-21 2019-06-21 [facility] [id number] 10:00:00 10:00:00 t Special[facility] 2019-06-01 2019-06-01 [facility] [id number] 10:00:00 10:00:00 t [facility] Medicine l Medicine Outpati ent Clinics 2019-05-18 2019-05-18 [facility] [id number] 10:40:00 10:40:00 t [facility] Medicine Outpati ent Clinics 2019-04-19 2019-04-19 [facility] [id number] 23[facility]36:00 23:36:00 t [facility] Medicine Outpati ent Clinics 2019-04-03 2019-04-03 [facility] [id number] 04:57:00 04:57:00 t [facility] Medicine Outpati ent Clinics 2019-03-17 2019-03-17 [facility] [id number] 21:43:00 21:43:00 t [facility] Medicine Outpati ent Clinics 2019-03-17 2019-03-17 [facility] [id number] 10:40:00 10:40:00 t [facility] l Medicine Outpati ent Clinics 2019-03-08 2019-03-08 [facility] [id number] 15:04:00 15:04:00 t [facility] Medicine Outpati ent Clinics 2019-03-01 2019-03-01 [facility] [id number] 20:32:00 20:32:00 t [facility] Medicine Outpati ent Clinics 2019-02-26 2019-02-26 [facility] [id number] 16:08:00 16:08:00 t [facility] Medicine Outpati ent Clinics 2019-02-22 2019-02-22 [facility] [id number] 08:19:00 08:19:00 t [facility] Medicine Outpati ent Clinics 2019-02-15 2019-02-15 [facility] [id number] 09:20:00 09:20:00 t [facility] Medicine Outpati ent Clinics 2019-01-18 2019-01-18 [facility] [id number] 10:00:00 10:00:00 t Specialty/U Yareli kes - Specialty rology [facility] a /Urology Clinic l Clinic Outpati ent Clinics 2018-09-02 2018-09-02 [facility] [id number] 10:45:00 10:45:00 t [facility] Medicine Outpati ent Clinics 2018-07-21 2018-07-21 Out[facility] [id number] 09:30:00 09:30:00 t Specialty/U Yareli kes - Specialty rology [facility] /Urology Clinic l Clinic Outpati ent Clinics 2018-03-11 2018-03-11 Out[facility] [id number] 09:30:00 09:30:00 t Specialty/U Yareli kes - Specialty rology [facility] /Urology Clinic l Clinic Outpati ent Clinics 2018-02-19 2018-02-19 Out[facility] [id number] 09:00:00 09:00:00 t Specialty/U Yareli kes - Specialty rology [facility] /Urology Clinic l Clinic Outpati ent Clinics 2018-01-16 2018-01-16 [facility] [id number] 15:30:00 15:30:00 t Specialty/U Yareli kes - Specialty rology [facility] /Urology Clinic l Clinic Outpati ent Clinics 2017-12-25 2017-12-25 Outpatient [facility] [id number] 10:38:00 10:38:00 t Specialty/U Yareli kes - Specialty rology [facility] /Urology Clinic l Clinic Outpati ent Clinics 2017-12-24 2017-12-24 Out[facility] [id number] 09:52:00 09:52:00 t Specialty/U Yareli kes - Specialty rology [facility] /Urology Clinic l Clinic Outpati ent Clinics 2017-12-11 2017-12-11 Outpatient [facility] [id number] 09:30:00 09:30:00 t Specialty/U Yareli kes - Specialty rology [facility] /Urology Clinic l Clinic Outpati ent Clinics 2017-12-09 2017-12-09 [facility] [id number] 09:35:00 09:35:00 t Specialty/U Yareli kes - Specialty rology [facility] /Urology Clinic l Clinic Outpati ent Clinics 2017-11-20 2017-11-20 Outpatient [facility] [id number] 09:00:00 09:00:00 t Specialty/U Yareli kes - Specialty rology [facility] /Urology Clinic l Clinic Outpati ent Clinics 2017-11-06 2017-11-06 [facility] [id number] 10:05:00 10:05:00 t Specialty/U Yareli kes - Specialty rology [facility] a /Urology Clinic l Clinic Outpati ent Clinics 2017-11-06 2017-11-06 [facility] [id number] 09:12:00 09:12:00 t Specialty/U Yareli kes - Specialty rology [facility] a /Urology Clinic l Clinic Outpati ent Clinics 2017-11-04 2017-11-04 Out[facility] [id number] 09:45:00 09:45:00 t Specialty/U Yareli kes - Specialty rology Mem[facility] a /Urology Clinic l Clinic Outpati ent Clinics 2017-10-20 2017-10-20 [facility] [id number] 08:45:00 08:45:00 t [facility] Results Test Description Test Time Test Comments Results Result Comments Source BLOOD CULTURE 2020-03-15 17:00:00 Test Item Value Reference Range Interpretation Comme nts CULTURE (BEAKER) (test code = 1095) No growth in 5 days BLOOD [id number] 15:00:00 Test Item Value Reference Range Interpretation Comments CULTURE (BEAKER) (test No growth in 5 days code = 1095) POC-Glucose [id number] 12:35:00 Test Item Value Reference Range Interpretation Comments POC-Glucose Meter (test 103 mg/dL 70-110 : TE STED AT [facility] code = 1538) [address] [facility], 770 30: Braze Operator/Techni benjamin ID = [id number] for EMILY SOLITARIO Lab Interpretation (test Normal code = 30787-6) [facility] [id number] 12:35:00 Test Item Value Reference Range Interpretation Comments POC-GLUCOSE METER 103 mg/dL 70-110 : TESTED A T [facility] 6720 (BEAKER) (test code = SHABBIR Jiménez [facility], 1538) 02076: Braze Operator/Techni benjamin ID = [id number] for EMILY EATON CBC with platelet count + automated [id number] 06:54:00 Test Item Value Reference Range Interpretation Comments WBC (test code = 6690-2) 3.5 See_Comment [A utomated message] The system [employer] generated this result transmitted ref erence range: 3.5 - 10 .5 K/L. The refe rence range was not u sed to interpret this result as normal/abnor mal. RBC (test code = 789-8) 2.79 See_Comment L [Au tomated message] The system [employer] generated this result transmitted ref erence range: 3.93 - 5 .22 M/L. The refe rence range was not u sed to interpret this result as normal/abnor mal. MCHC (test code = 786-4) 36.0 See_Comment H [A utomated message] The system [employer] generated this result transmitted ref erence range: [...] L [Aut omated message] 777-3) The system [employer] generated this result transmitted ref erence range: 150 - 45 0 K/CU MM. The referen ce range was not u sed to interpret this result as normal/abnor mal. MPV (test code = 10.5 fL 9.4-12.3 74430-6) nRBC (test code = 413) 0 See_Comment [Aut omated message] The system [employer] generated this result transmitted ref erence range: [...] See_Comment [Aut omated message] 670) The system [employer] generated this result transmitted ref erence range: 1.56 - 6 .13 K/L. The refe rence range was not u sed to interpret this result as normal/abnor mal. # Lymphs (test code = 0.43 See_Comment L [Auto mated message] 414) The system [employer] generated this result transmitted ref erence range: 1.18 - 3 .74 K/L. The refe rence range was not u sed to interpret this result as normal/abnor mal. # Monos (test code = 0.98 See_Comment H [Autom ated message] 415) The system [employer] generated this result transmitted ref erence range: 0.24 - 0 .36 K/L. The refe rence range was not u sed to interpret this result as normal/abnor mal. # Eos (test code = 416) 0.07 See_Comment [Au tomated message] The system [employer] generated this result transmitted ref erence range: 0.04 - 0 .36 K/L. The refe rence range was not u sed to interpret this result as normal/abnor mal. # Baso (test code = 417) 0.01 See_Comment [A utomated message] The system [employer] generated this result transmitted ref erence range: 0.01 - 0 .08 K/L. The refe rence range was not u sed to interpret this result as normal/abnor mal. Immature 1 % 0-1 Granulocytes-Relative (test code = 2801) Lab Interpretation (test Abnormal code = 19891-9) [facility] W/PLT COUNT & AUTO [id number] 06:54:00 Test Item Value Reference Range Interpretation [...] (BEAKER) (test code = 2801) Comprehensive metabolic [id number] 06:45:00 Test Item Value Reference Range Interpretation Comments Protein, Total (test 5.1 See_Comment L [Autom ated code = 2885-2) message] The system which generated this result transmit enrique reference range : 6.0 - 8.3 gm/dL . The reference range was not u sed to interpret th is result as normal/abnormal . Albumin (test code = 3.0 g/dL 3.5-5 L 69348-4) Alkaline Phosphatase 128 U/L 40-150 (test code [...] (test code = 7.6 mg/dL 8.4-10.2 L 61130-3) AST (test code = 75 U/L 5-34 H 1920-8) ALT (test code = 64 U/L 6-55 H 1742-6) EGFR (test code = 109 mL/min/1.73 sq m [facility]IM[facility] [place] [address]-4) NOT ACCURATE CREATININE CLEARANCE IN PREDICTING GLOMERULAR FILTRATION RATE . ESTIMATED GFR I S NOT APPLICABLE FOR DIALYSIS PATIEN TS. MICHAEL (test code = MICHAEL) Braze Operator ID - EDASI Lab Interpretation Abnormal (test code = 29354-4) [facility] [id number] 06:45:00 Test Item Value Reference Range Interpretation [...] S NOT APPLICABLE FOR DIALYSIS PATIEN TS. Braze Operator ID - [id number] 06:34:00 Test Item Value Reference Range Interpretation Comments Magnesium (test code = 1.6 mg/dL 1.6-2.6 88363-9) MICHAEL (test code = MICHAEL) Braze Operator ID - EDASI Lab Interpretation (test Normal code = 65085-5) [facility] 06[facility]34:00 Test Item Value Reference Range Interpretation Comments Phosphorus (test code = 2.3 mg/dL 2.3-4.7 2777-1) MICHAEL (test code = MICHAEL) Braze Operator ID - EDASI Lab Interpretation (test Normal code = 62129-7) [facility] 06:34:00 Test Item Value Reference Range Interpretation Comments PHOSPHORUS (BEAKER) (test code = 2.3 mg/dL 2.3-4.7 604) Braze Operator ID - [id number] 06:34:00 Test Item Value Reference Range Interpretation Comments MAGNESIUM (BEAKER) (test code = 1.6 mg/dL 1.6-2.6 627) Braze Operator ID - EDASIPOCT-GLUCOSE [id number] 05:48:00 Test Item Value Reference Range Interpretation Comments POC-GLUCOSE METER 86 mg/dL 70-110 : TESTED A T [facility] 6720 (BEAKER) (test code = [facility], 1538) 57668: Braze Operator/Techni benjamin ID = [id number] for SAND ERS, KRAIG POCT-GLUCOSE [id number] 23:58:00 Test Item Value Reference Range Interpretation Comments POC-GLUCOSE METER 94 mg/dL 70-110 : TESTED A T [facility] 6720 (BEAKER) (test code = [facility], 1538) 25419: Braze Operator/Techni benjamin ID = [id number] for SAND ERS, KRAIG POCT-GLUCOSE [id number] 14:18:00 Test Item Value Reference Range Interpretation Comments POC-GLUCOSE METER 93 mg/dL 70-110 : TESTED A T [facility] 6720 (BEAKER) (test code = [facility], 1538) 61674: Braze Operator/Techni benjamin ID = [id number] for Sylvia Owens POCT-GLUCOSE [id number] 12:42:00 Test Item Value Reference Range Interpretation Comments POC-GLUCOSE METER 96 mg/dL 70-110 : TESTED A T [facility] 6720 (BEAKER) (test code = [facility], 1538) 09346: Braze Operator/Techni benjamin ID = [id number] for Paco Alcantara [id number] 08:22:00 Test Item Value Reference Range Interpretation Comments PHOSPHORUS (BEAKER) (test code = 1.3 mg/dL 2.3-4.7 LL 604) Braze Operator ID - PIAYA LCOMPREHENSIVE METABOLIC [id number] 08:21:00 Test Item Value Reference Range Interpretation [...] S NOT APPLICABLE FOR DIALYSIS PATIEN TS. Braze Operator ID - RYAN [id number] 08:16:00 Test Item Value Reference Range Interpretation Comments MAGNESIUM (BEAKER) (test code = 1.3 mg/dL 1.6-2.6 L 627) Braze Operator ID - RYAN LCBC W/PLT COUNT & AUTO [id number] 07:59:00 Test Item Value Reference Range Interpretation [...] PERCENT (BEAKER) (test code = 2801) POCT-GLUCOSE [id number] 07:35:00 Test Item Value Reference Range Interpretation Comments POC-GLUCOSE METER 98 mg/dL 70-110 : TESTED A T [facility] 6720 (BEAKER) (test code = [facility], 1538) 40501: Braze Operator/Techni benjamin ID = [id number] for Edson Gerardo POCT-GLUCOSE [id number] 07:03:00 Test Item Value Reference Range Interpretation Comments POC-GLUCOSE METER 103 mg/dL 70-110 : TESTED A T [facility] 6720 (BEAKER) (test code = [facility], 1538) 59212: Braze Operator/Techni benjamin ID = [id number] for Jaimee Mccoy POCT-GLUCOSE [id number] 16:13:00 Test Item Value Reference Range Interpretation Comments POC-GLUCOSE METER 110 mg/dL 70-110 : TESTED A T [facility] 6720 (BEAKER) (test code = [facility], 1538) 42127: Braze Operator/Techni benjamin ID = [id number] for Katharina Ramireza POCT-GLUCOSE [id number] 13:14:00 Test Item Value Reference Range Interpretation Comments POC-GLUCOSE METER 127 mg/dL 70-110 H : TESTED A T [facility] 6720 (BEAKER) (test code = [facility], 1538) 82764: Braze Operator/Techni benjamin ID = [id number] for Yesika mckenzie, [place] [id number] 12:48:00 Test Item Value Reference Range Interpretation Comments POTASSIUM (BEAKER) 3.1 meq/L 3.5-5.1 L Specimen slightly (test code = 379) hemolyzed Braze Operator ID - JOHN CPOCT-GLUCOSE [id number] 08:55:00 Test Item Value Reference Range Interpretation Comments POC-GLUCOSE METER 148 mg/dL 70-110 H : TESTED A T [facility] 6720 (BEAKER) (test code = [facility], 1538) 80735: Braze Operator/Techni benjamin ID = [id number] for Yesika barinez, [place] COMPREHENSIVE METABOLIC [id number] 04:19:00 Test Item Value Reference Range Interpretation [...] S NOT APPLICABLE FOR DIALYSIS PATIEN TS. Braze Operator ID Reymundo DAVIS LSpecimen slightly [id number] 04:19:00 Test Item Value Reference Range Interpretation Comments PHOSPHORUS (BEAKER) (test code = 1.5 mg/dL 2.3-4.7 LL 604) Braze Operator ID - RYAN [id number] 04:16:00 Test Item Value Reference Range Interpretation Comments MAGNESIUM (BEAKER) (test code = 1.7 mg/dL 1.6-2.6 627) Braze Operator ID Reymundo DAVIS LCBC W/PLT COUNT & AUTO [id number] 03:32:00 Test Item Value Reference Range Interpretation [...] PERCENT (BEAKER) (test code = 2801) POCT-GLUCOSE [id number] 19:52:00 Test Item Value Reference Range Interpretation Comments POC-GLUCOSE METER 122 mg/dL 70-110 H : TESTED Joselito Armstrong [facility] 6720 (BEAKER) (test code = SHABBIR CHAN [place], 1538) [id number]: Braze Operator/Techni benjamin ID = [id number] for Jaimee Mccoy POCT-GLUCOSE [id number] 18:10:00 Test Item Value Reference Range Interpretation Comments POC-GLUCOSE METER 115 mg/dL 70-110 H : TESTED A T [facility] 6720 (AILYN) (test code = SHABB[place]AN [place], 1538) [address]75[address]: Braze Operator/Techni benjamin ID = [id number] for BONI HDZ SARS-COV2/RT-PCR ([facility])2020-03-11 14:46:00 Test Item Value Reference Range Interpretation Comments SARS-COV2/RT-PCR (test Negative Not Detected, Negative, code = 2056359) See external report for linked test SARS-COV-2 PERFORMING LAB [facility] GONZALO (test code = 3352980) Negative result for this test determines that [...] 564(g) of the Act.Fact Sheet for Healthcare Providers:https://www.AlumniFunder.Chance (app)/sites/default/files/product/documents/Fact_Shee k_[place]_Eassgribo_Gyjf_PBCK-ImZ-0.pdfFact Sheet for Healthcare Patients:https://www.AlumniFunder.Chance (app)/sites/default/files/product/ documents/Xyqd_Zqbss_Qyeranfn_Kuuo_EGLC-OvS-3.pdfPerforming Laboratory:[facility], [place] [address]QRIY-CGOEVVN METER 2020-03-11 12:29:00 Test Item Value Reference Range Interpretation Comments POC-GLUCOSE METER 117 mg/dL 70-110 H : TESTED A T [facility] 6720 (BEAKER) (test code = SHABBIR Jiménez [facility], 1538) 84[address]: Braze Operator/Techni benjamin ID = [id number] for RA MOS, BONI [id number] 06:39:00 Test Item Value Reference Range Interpretation Comments MAGNESIUM (BEAKER) 1.8 mg/dL 1.6-2.6 Specimen slightly (test code = 627) hemolyzed Braze Operator ID - PIAYA [id number] 06:39:00 Test Item Value Reference Range Interpretation Comments PHOSPHORUS (BEAKER) 2.1 mg/dL 2.3-4.7 L Specimen slightly (test code = 604) hemolyzed Braze Operator ID - PIAYA LCOMPREHENSIVE METABOLIC [id number] 06:39:00 Test Item Value Reference Range Interpretation [...] S NOT APPLICABLE FOR DIALYSIS PATIEN TS. Braze Operator ID - PIAYA LSpecimen slightly ictericCBC W/PLT COUNT & AUTO [id number] 05:56:00 Test Item Value Reference Range Interpretation [...] PERCENT (BEAKER) (test code = 2801) POCT-GLUCOSE [id number] 05:51:00 Test Item Value Reference Range Interpretation Comments POC-GLUCOSE METER 114 mg/dL 70-110 H : TESTED A T [facility] 6720 (BEAKER) (test code = [facility], 1538) [id number]: Braze Operator/Techni benjamin ID = [id number] for TRAVON REYES RAPID DRUG SCREEN, [id number] 04:12:00 Test Item Value Reference Range Interpretation [...] situations. Chain of custody not maintained. Some eypg-mzi-kkmzhff medications, as well as adulterants, may cause inaccurate results. Clinical correlation should be applied. A more comprehensivedrug screen or confirmation of a detected drug may be performed upon request.Braze Operator ID - WIN MURINALYSIS W/ REFLEX URINE [id number] 04:06:00 Test Item Value Reference Range Interpretation [...] = 1584) SOURCE(BEAKER) (test code = 2795) Braze Operator ID - [auto]Braze Operator ID - techOSMOLALITY, [id number] 04:02:00 Test Item Value Reference Range Interpretation Comments OSMOLALITY URINE (BEAKER) (test 630 mOsm/kg 50-1,200 mOsm/kg code = 614) CREATININE, RANDOM [id number] 03:18:00 Test Item Value Reference Range Interpretation Comments CREATININE URINE (BEAKER) (test 47.2 mg/dL code = 375) Reference Range: No NormalsOperator ID - WIN MSODIUM, RANDOM [id number] 03:18:00 Test Item Value Reference Range Interpretation Comments SODIUM URINE (BEAKER) (test code = 91 meq/L 243) Reference Range: No NormalsOperator ID - WIN MUREA NITROGEN, RANDOM URINE 2020-03-11 03:18:00 Test Item Value Reference Range Interpretation Comments UREA NITROGEN URINE (BEAKER) (test 798 mg/dL code = 538) Reference Range: No NormalsOperator ID - WIN MPOCT-GLUCOSE [id number] 01:01:00 Test Item Value Reference Range Interpretation Comments POC-GLUCOSE METER 114 mg/dL 70-110 H : TESTED A T [facility] 6720 (BEAKER) (test code = [facility], 1538) 199[address]: Braze Operator/Techni benjamin ID = [id number] for TRAVON REYES LACTIC ACID, [id number] 21:31:00 Test Item Value Reference Range Interpretation Comments LACTATE BLOOD VENOUS 1.31 mmol/L 0.50-2.20 Specime n slightly (2) (BEAKER) (test hemolyzed code = 2872) Braze Operator ID - DBSpecimen slightly ictericPOCT-GLUCOSE [id number] 18:10:00 Test Item Value Reference Range Interpretation Comments POC-GLUCOSE METER 114 mg/dL 70-110 H : TESTED A T [facility] 6720 (BEAKER) (test code = [facility], 153) [address]: Braze Operator/Techni benjamin ID = [id number] for SANTOS JACOBSON DD T4, [id number] 17:23:00 Test Item Value Reference Range Interpretation Comments FREE T4 (BEAKER) (test code = 655) 1.00 ng/dL 0.70-1.48 Braze Operator ID - DBHEPATITIS PANEL, [id number] 17:23:00 Test Item Value Reference Range Interpretation Comments HEPATITIS A IGM ANTIBODY (BEAKER) Nonreactive Nonreactive (test code = 498) HEPATITIS B CORE IGM ANTIBODY Nonreactive Nonreactive (BEAKER) (test code = 645) HEPATITIS C ANTIBODY (BEAKER) Nonreactive Nonreactive (test code = 367) HEPATITIS B SURFACE ANTIGEN (2) Nonreactive Nonreactive (BEAKER) (test code = 2585) Braze Operator ID - DBTSH/FREE T4 IF [id number] 15:51:00 Test Item Value Reference Range Interpretation Comments THYROID STIMULATING HORMONE 0.299 uIU/mL 0.350-4.940 L (BEAKER) (test code = 772) Braze Operator ID - ALIDA [id number] 15:33:00 Test Item Value Reference Range Interpretation Comments CORTISOL, TOTAL (BEAKER) (test 58.2 ug/dL 3.7-19.4 H code = 2755) Braze Operator ID - JOHN [id number] 15:07:00 Test Item Value Reference Range Interpretation Comments PROCALCITONIN (BEAKER) (test code 1.40 ng/mL <0.05 H = 3036) SEPSIS RISK (ng/mL)Low: 0.05-0.50Intermediate: 0.51-2.00High: >=2.01B-TYPE NATRIURETIC FACTOR (BNP)2020-03-10 14:52:00 Test Item Value Reference Range Interpretation Comments B-TYPE NATRIURETIC PEPTIDE (BEAKER) 154 pg/mL 0-100 H (test code = 700) Braze Operator ID - JOHN CTROPONIN [id number] 14:52:00 Test Item Value Reference Range Interpretation [...] failure, acidosis, acute neurological disease, and persistent tachyarrhythmia.Braze Operator ID - JOHN COSMOLALITY, SERUM 2020-03-10 14:47:00 Test Item Value Reference Range Interpretation Comments OSMOLALITY, SERUM (BEAKER) (test 287 mOsm/kg 275-295 code = 615) [id number] 14:46:00 Test Item Value Reference Range Interpretation Comments MAGNESIUM (BEAKER) (test code = 1.3 mg/dL 1.6-2.6 L 627) Braze Operator ID - JOHN [id number] 14:46:00 Test Item Value Reference Range Interpretation Comments PHOSPHORUS (BEAKER) (test code = 1.8 mg/dL 2.3-4.7 L 604) Braze Operator ID - JOHN [id number] 14:46:00 Test Item Value Reference Range Interpretation Comments TRIGLYCERIDES (BEAKER) (test code = 220 mg/dL 540) TRIGLYCERIDE REFERENCE RANGELow Risk <150Borderline Risk 150-199High Risk 200-499Very High Risk>=500Operator ID - JOHN CSpecimen slightly icteric COMPREHENSIVE METABOLIC [id number] 14:46:00 Test Item Value Reference Range Interpretation [...] S NOT APPLICABLE FOR DIALYSIS PATIEN TS. Braze Operator ID - JUL CSpecimen slightly [id number] 14:46:00 Test Item Value Reference Range Interpretation Comments AMYLASE (BEAKER) (test code = 349) 397 U/L 25-125 H Braze Operator ID - JOHN CSpecimen slightly [id number] 14:46:00 Test Item Value Reference Range Interpretation Comments LIPASE (BEAKER) (test code = 749) 689 U/L 8-78 H Braze Operator ID - JOHN CSpecimen slightly [id number] 14:41:00 Test Item Value Reference Range Interpretation Comments FIBRINOGEN LEVEL (BEAKER) (test 115 mg/dl 225-434 L code = 658) [id number] 14:38:00 Test Item Value Reference Range Interpretation Comments AMMONIA (BEAKER) 40 mol/L 18-72 Specimen sl ightly (test code = 348) hemolyzed Braze Operator ID - JUL CLACTIC ACID, [id number] 14:37:00 Test Item Value Reference Range Interpretation Comments LACTATE BLOOD VENOUS (2) (BEAKER) 2.61 mmol/L 0.50-2.20 H (test code = 2872) Braze Operator ID - JOHN CSpecimen slightly ictericPT/[id number] 14:36:00 Test Item Value Reference Range Interpretation [...] mechanical heart valves.CBC W/PLT COUNT & AUTO [id number] 14:33:00 Test Item Value Reference Range Interpretation [...] PERCENT (BEAKER) (test code = 2801) CALCIUM, [id number] 14:30:00 Test Item Value Reference Range Interpretation Comments CALCIUM IONIZED (BEAKER) (test 1.05 mmol/L 1.12-1.27 L code = 698) PH, BLOOD (BEAKER) (test code = 7.33 1810) BLOOD GAS, [id number] 14:30:00 Test Item Value Reference Range Interpretation [...]
[2021-05-31] MEDS ORDERED: MORPHINE 2 MG/ML SYR IV PRN (12:24)
[2021-05-31] MEDS ORDERED: LORazepam 2 MG/ML VIAL IV PRN (12:25)
[2021-05-31] MEDS ORDERED: ONDANSETRON 4 MG/2 ML VIAL IV PRN (12:26)
[2021-05-31] MEDS ORDERED: BISACODYL 10 MG RECTAL SUPP PR PRN (12:26)
[2021-05-31] MEDS ORDERED: ACETAMINOPHEN 650MG/RECT SUPP PR PRN (12:27)
[2021-05-31] MEDS: SCOPOLAMINE HYDROBROMIDE PATCH TD SCH (13:44)
[2021-05-31] MEDS: LORazepam 2 MG/ML VIAL IV SCH ×3 (13:45→21:25)
[2021-05-31] MEDS: MORPHINE 2 MG/ML SYR IV SCH ×3 (13:46→21:24)
[2021-06-01] MEDS: LORazepam 2 MG/ML VIAL IV SCH ×6 (01:05→21:33)
[2021-06-01] MEDS: MORPHINE 2 MG/ML SYR IV SCH ×6 (01:05→21:34)
[2021-06-02] MEDS: LORazepam 2 MG/ML VIAL IV SCH ×6 (02:06→21:00)
[2021-06-02] MEDS: MORPHINE 2 MG/ML SYR IV SCH ×6 (02:06→21:29)
[2021-06-03] MEDS: MORPHINE 2 MG/ML SYR IV SCH ×6 (01:00→21:00)
[2021-06-03] MEDS: LORazepam 2 MG/ML VIAL IV SCH ×6 (01:19→21:00)
[2021-06-03] MEDS: SCOPOLAMINE HYDROBROMIDE PATCH TD SCH (09:16)
[2021-06-03 21:05] VITALS: BP 65/55; TEMP 96.1
== END 2021-06-03 21:21 | disposition expired | DRG 951 ==
LOC: 4TH 12:06 → 2ND 22:58
PROVIDERS: ADMIT Internal Medicine Medical Oncology; ATTEND Internal Medicine Medical Oncology
DX: Z51.5 Encounter for palliative care (principal); K74.60 Unspecified cirrhosis of liver; Z66 Do not resuscitate
CPT/HCPCS: J2270